=== PATIENT | female | born 1945 | race Hispanic/Latino ===

== ENCOUNTER 2017-08-31 20:25 | Emergency (ER) | payer OTHER ==
--- OUTSIDE RECORDS SUMMARY | 2017-08-31 20:27 | XMS REPORT | Clinical Summary ---
:1945 Author Organization [facility] Address [address] [place] [address] Care Team Providers Name Role Phone Asked, No Pcp Primary Care Provider Unavailable Allergies Active Allergy Reactions Severity Noted Date Comments Morphine 08/02/2016 Current Medications Not on file Active Problems Not on file Social History Tobacco Use Types Packs/Day Years Used Date Never Smoker Alcohol Use Drinks/Week oz/Week Comments No Sex Assigned at Date Recorded Not on file Last Filed Vital Signs Not on file Plan of Treatment Health Maintenance Due Date Last Done Comments BREAST CANCER SCREENING 12/31/1995 COLON CANCER SCREENING 12/31/1995 SHINGRIX VACCINE (#1) 12/31/1995 ZOSTER VACCINE 2005 PNEUMOCOCCAL POLYSACCHARIDE VACCINE AGE 65 AND OVER 2010 PNEUMOCOCCAL-13 2010 INFLUENZA VACCINE 10/29/2017 Results Not on fileafter 08/30/2016 Insurance Payer Benefit Plan / Group Subscriber ID Type Phone Address MEDICARE MEDICARE PART A AND B xxxxxxxxxx Medicare [place], [place] MEDICAID MEDICAID xxxxxxxxx Medicaid
[2017-08-31 21:22] LABS: Absolute Lymphocytes (CBC) 1.7 K/uL (0.7-4.9); Absolute Monocytes 0.4 K/uL (0.1-1.3); Absolute Neutrophil 2.9 K/uL (1.8-8.0); Basophils % 1.6 % (0-1.3); Eosinophils % 2.7 % (0-4.4); Hematocrit 29.4 % (36.0-45.0); Lymphocytes % 32.3 % (15.3-44.8); MCH 26.8 pg (27.0-35.0); MCV 80.1 fL (80-100); MPV 8.5 fL (7.6-11.3); Monocytes % 7.4 % (3.3-12.3); RBC Red Blood Cell Count 3.67 M/uL (3.86-4.86)
[2017-08-31 21:34] LABS: Potassium 3.2 mEq/L (3.6-5.0)
[2017-08-31 21:40] LABS: Albumin 3.9 g/dL (3.2-5.5); Bilirubin Direct 0.1 mg/dL (0-0.2); Bilirubin Total 0.2 mg/dL (0.3-1.2); Magnesium 1.5 mg/dL (1.8-2.5); Protein, Total 7.3 g/dL (6.0-8.3)
[2017-08-31] MEDS ORDERED: NA CHLORIDE 0.9% 250 ML ONE (21:42)
[2017-08-31] MEDS ORDERED: FENTANYL CITR 100 MCG/2 ML ONE (21:42)
[2017-08-31] MEDS ORDERED: ONDANSETRON 4 MG/2 ML VIAL ONE (21:42)
[2017-08-31] MEDS ORDERED: NA CHLORIDE 0.9% 1,000 ML ONE (22:03)
[2017-08-31] MEDS ORDERED: INSULIN -REGULAR HUMAN 50 UNIT/0.5 ML ML ONE (22:03)
[2017-08-31 23:34] LABS: Urine Bacteria <20 /HPF (<20); Urine Culture Reflex Order NOT NEEDED; Urine Mucus SLIGHT /HPF (NONE SEEN); Urine RBC NONE SEEN /HPF (NONE SEEN)
[2017-08-31 23:44] LABS: Urine Blood NEGATIVE (NEG); Urine Glucose 2+ (NEG); Urine Protein 1+ (NEG); Urine pH 5.5 (5.0-7.0)
[2017-09-01] MEDS ORDERED: MAGNESIUM SULFATE 1 gm IVPB 0 GM/0 ML BAG IV ONE (00:15)
[2017-09-01] MEDS ORDERED: KCL 20 MEQ/100 mL IVPB 20 MEQ/100 ML BAG IV ONE (00:15)
[2017-09-01] MEDS ORDERED: Magnesium Sulfate 2gm IVPB 2 G/50 ML BAG IV ONE (00:18)
--- NOTE | 2017-09-01 02:52 | ER ---
Nurse's Notes [facility] Name: Leydi Guerrier Age: 71 yrs Sex: Female : 1945 Arrival Date: 08/31/2017 Time: 20:26 Bed 14 Private MD: Natanael Mendoza Diagnosis: Unspecified abdominal pain;Other chest pain Presentation: 08/31 20:32 Presenting complaint: EMS states: "Patient c/o abdominal pain that radiates down both bs1 legs, patient colon colon surgery about 2 weeks ago in [place], patient started having c/o right sided chest pain just prior to arrival, blood pressure 161/88 99% RA.". Transition of care: patient was not received from another setting of care. Onset of symptoms is unknown. Risk Assessment: Do you want to hurt yourself or someone else? Patient reports no desire to harm self or others. Initial Sepsis Screen: Does the patient meet any 2 criteria? No. Patient's initial sepsis screen is negative. Does the patient have a suspected source of infection? No. Patient's initial sepsis screen is negative. Care prior to arrival: Glucose check: 317. 20:32 Method Of Arrival: EMS: [facility] bs1 20:32 Acuity: ADY 3 bs1 Historical: - Allergies: 20:38 Morphine; bs1 - Home Meds: 20:38 lisinopril 10 mg Oral tab 1 tab once daily [Active]; metformin 500 mg Oral tab 1 tab 2 bs1 times per day for Type 2 Diabetes Mellitus [Active]; oxybutynin chloride 10 mg Oral tr24 1 tab once daily [Active]; Plavix 75 mg Oral tab 1 tab once daily for Myocardial Reinfarction Prevention [Active]; pregabalin 75 MG Oral 1 cap 2 times per day [Active]; Protonix 40 mg Oral TbEC 1 tab once daily [Active]; simvastatin 20 mg Oral tab 1 tab once daily for Mixed Hyperlipidemia [Active]; - PMHx: 20:38 CAD; CVA; Diabetes - IDDM; High Cholesterol; Hypertension; legally blind; bs1 20:39 Glaucoma; bs1 - PSHx: 20:38 colon surgery; amputee of big toe; bs1 - Immunization history:: Adult Immunizations unknown. - Social history:: Smoking status: Patient/guardian denies using tobacco. - Ebola Screening: : Patient negative for fever greater than or equal to 101.5 degrees Fahrenheit, and additional compatible Ebola Virus Disease symptoms Patient denies exposure to infectious person. Screenin:41 Abuse screen: Denies threats or abuse. Denies injuries from another. Nutritional bs1 screening: No deficits noted. Tuberculosis screening: No symptoms or risk factors identified. Fall Risk No fall in past 12 months (0 pts). No secondary diagnosis (0 pts). IV access (20 points). Ambulatory Aid- None/Bed Rest/Nurse Assist (0 pts). Gait- Weak (10 pts.). Mental Status- Oriented to own ability (0 pts). Total Esparza Fall Scale indicates Low Risk Score (25-44 pts). Assessment: 20:43 General: Appears uncomfortable, unkempt, Behavior is anxious. Pain: Complains of pain bs1 in abdominal pain, right side of chest Pain radiates to bilateral legs. Neuro: Level of Consciousness is awake, alert, obeys commands, Oriented to person, place, time. Cardiovascular: Reports chest pain, Denies shortness of breath, Heart tones S1 S2 present Capillary refill < 3 seconds Patient's skin is warm and dry. Respiratory: Airway is patent Trachea midline Respiratory effort is even, unlabored, Respiratory pattern is regular, symmetrical, Breath sounds are clear bilaterally. GI: Abdomen is round non-distended, Last BM was August 31, 2017. Bowel sounds present X 4 quads. surgical scar noted to abdomen Reports lower abdominal pain, upper abdominal pain. : No signs and/or symptoms were reported regarding the genitourinary system. EENT: Reports legally blind. Derm: Skin is intact, Skin is pink, warm \\T\\ dry. Musculoskeletal: Circulation, motion, and sensation intact. Capillary refill < 3 seconds, Range of motion: intact in all extremities. 21:40 Reassessment: Informed PA that patient has c/o pain in right side of chest, hips, right bs1 palm of hand that is a sharp pain. Patient crying out. PA to put orders in. 23:23 Reassessment: Patient c/o pain "all over." Verbal order from PA to give 25mcg of bs1 fentanyl. Son at bedside, leaving with patients purse and belongings, per patient request. 09/01 01:10 Reassessment: Patient had 1 episode of diarrhea. When cleaning patient up, nurse bs1 noticed that patient has a stage 2 to rectal area. 01:30 Reassessment: No changes from previously documented assessment. Patient and/or family bs1 updated on plan of care and expected duration. Pain level reassessed. Patient is alert, oriented x 3, equal unlabored respirations, skin warm/dry/pink. Patient still c/o pain. Pending results of CT scan. 02:30 Reassessment: Patient appears in no apparent distress at this time. Patient and/or bs1 family updated on plan of care and expected duration. Pain level reassessed. Patient is alert, oriented x 3, equal unlabored respirations, skin warm/dry/pink. Gave patient water for PO challenge. tolerated well. No N/N noted. 03:30 Reassessment: Patient appears in no apparent distress at this time. Patient and/or bs1 family updated on plan of care and expected duration. Pain level reassessed. Patient is alert, oriented x 3, equal unlabored respirations, skin warm/dry/pink. 03:50 Reassessment: Nan mcmillan Tolerated well. bs1 Vital Signs: 08/31 20:40 BP 157 / 49 LA Sitting (auto/lg); Pulse 80 LA; Resp 17; Temp 98.2(O); Pulse Ox 99% on bs1 R/A; Weight 69.85 kg; Height 5 ft. 2 in. (157.48 cm); Pain 10/10; 21:30 BP 178 / 69; Pulse 76; Pulse Ox 100% on R/A; bs1 22:30 BP 162 / 78; Pulse 80; Resp 17; Pulse Ox 100% on R/A; bs1 23:30 BP 163 / 80; Pulse 75; Pulse Ox 100% on R/A; bs1 06/ 00:30 BP 166 / 81; Pulse 76; Resp 17; Pulse Ox 99% on R/A; bs1 01:30 BP 154 / 66; Pulse 86; Resp 16; Pulse Ox 100% on R/A; bs1 02:30 BP 161 / 52; Pulse 75; Resp 16; Pulse Ox 99% on R/A; bs1 03:30 BP 148 / 85; Pulse 84; Resp 16 S; Pulse Ox 100% ; Pain 7/10; bs1 08/31 20:40 Body Mass Index 28.17 (69.85 kg, 157.48 cm) bs1 ED Course: 08/31 20:26 Patient arrived in ED. am2 20:31 Gopi Coppola PA is PHCP. cp 20:31 Duran Pires MD is Attending Physician. cp 20:32 Galilea Todd RN is Primary Nurse. bs1 20:35 Natanael Mendoza MD is Private Physician. am2 20:36 Triage completed. bs1 20:41 Patient has correct armband on for positive identification. Placed in gown. Bed in low bs1 position. Call light in reach. Side rails up X 1. compliance monitor on. Pulse ox on. NIBP on. Warm blanket given. 20:42 Arm band placed on right wrist. EKG completed in triage. Results shown to MD. bs1 20:45 EKG done, by research food technologist. reviewed by Duran Pires MD. oe 21:15 Inserted saline lock: 20 gauge in right antecubital area, using aseptic technique. bs1 Blood collected. Inserted By AIDEN Hubbard. 22:02 X-ray completed. Portable x-ray completed in exam room. Patient tolerated procedure mh1 well. 22:04 XRAY Chest (1 view) In Process Unspecified. EDMS 22:59 [place] cath inserted, using sterile technique, 16 Fr., by travel counselor [employer], balloon inflated, to oe gravity drainage, urine specimen collected. Patient tolerated. 23:[address] via stretcher. kw1 09/01 00:21 CT completed. Patient tolerated procedure well. Patient moved back from CT. kw1 00:27 CT Abd/Pelvis - W/Contrast In Process Unspecified. EDMS 02:00 Inserted IV discontinued, IV infiltrated. bs1 02:00 Inserted saline lock: 22 gauge in left antecubital area, using aseptic technique. bs1 03:35 No provider procedures requiring assistance completed. bs1 Administered Medications: 08/31 21:45 Drug: Zofran 4 mg Route: IVP; Site: right forearm; bs1 09/01 03:43 Follow up: Response: No adverse reaction bs1 08/31 21:45 Drug: fentaNYL (PF) 25 mcg Route: IVP; Site: right forearm; bs1 09/01 03:44 Follow up: Response: No adverse reaction bs1 08/31 21:56 Drug: NS 0.9% 250 ml Route: IV; Rate: bolus; Site: right forearm; bs1 09/01 03:42 Follow up: IV Status: Completed infusion bs1 08/31 22:06 Drug: Insulin Regular Human 5 units {Co-Signature: bp (Adan Jalloh RN).} Route: IVP; bs1 Site: right forearm; 09/01 03:43 Follow up: Response: No adverse reaction bs1 08/31 22:07 Drug: NS 0.9% 1000 ml Route: IV; Rate: 75 ml/hr; Site: right forearm; bs1 09/01 03:42 Follow up: IV Status: Completed infusion bs1 04:13 Follow up: IV Intake: 300ml bs1 08/31 23:28 Drug: fentaNYL (PF) 25 mcg Route: IVP; Site: right forearm; bs1 09/01 03:42 Follow up: Response: No adverse reaction bs1 01:26 Drug: Magnesium Sulfate 2 grams Route: IVPB; Infused Over: 2 hrs; Site: left bs1 antecubital; 03:41 Follow up: IV Status: Completed infusion bs1 03:43 Follow up: IV Status: Completed infusion bs1 01:26 Drug: Potassium Chloride 20 mEq Route: IV; Rate: calculated rate; Site: left bs1 antecubital; 04:13 Follow up: IV Status: Completed infusion bs1 Point of Care Testing: Blood Glucose: 02:09 Blood Glucose: 151 mg/dL; bs1 Ranges: Intake: 04:13 IV: 300ml; Total: 300ml. bs1 Outcome: 02:52 Discharge ordered by MD. cp 04:04 Discharged to home via wheelchair. bs1 04:04 Condition: stable 04:04 Discharge instructions given to son Instructed on discharge instructions, follow up and referral plans. medication usage, Demonstrated understanding of instructions, follow-up care, medications, Prescriptions given X 2. 04:05 Patient left the ED. bs1 Signatures: Dispatcher [employer] EDMS Paola Perez 1 Gopi Coppola PA PA Carlito Sanches Amanda am2 Nury Corona1 Galilea Todd RN RN bs1 Adan Jalloh RN bp Corrections: (The following items were deleted from the chart) 03:40 02:30 Reassessment: Patient appears in no apparent distress at this time. Patient bs1 and/or family updated on plan of care and expected duration. Pain level reassessed. Patient is alert, oriented x 3, equal unlabored respirations, skin warm/dry/pink. bs1
--- NOTE | 2017-09-01 02:52 | EDPHYS ---
Physician Documentation [facility] Name: Leydi Guerrier Age: 71 yrs Sex: Female : 1945 Arrival Date: 08/31/2017 Time: 20:26 Bed 14 Private MD: Natanael Mendoza ED Physician Duran Pires HPI: 08/31 21:08 This 71 yrs old Female presents to ER via EMS with complaints of Abdominal cp Pain. 21:08 The patient presents with abdominal pain that is diffuse. Onset: The symptoms/episode cp began/occurred at an unknown time. Associated signs and symptoms: Pertinent positives: diarrhea. 21:08 Severity of pain: in the emergency department the pain is unchanged despite home cp interventions. 21:08 The patient has experienced similar episodes in the past, multiple times. cp Historical: - Allergies: 20:38 Morphine; bs1 - Home Meds: 20:38 lisinopril 10 mg Oral tab 1 tab once daily [Active]; metformin 500 mg Oral tab 1 tab 2 bs1 times per day for Type 2 Diabetes Mellitus [Active]; oxybutynin chloride 10 mg Oral tr24 1 tab once daily [Active]; Plavix 75 mg Oral tab 1 tab once daily for Myocardial Reinfarction Prevention [Active]; pregabalin 75 MG Oral 1 cap 2 times per day [Active]; Protonix 40 mg Oral TbEC 1 tab once daily [Active]; simvastatin 20 mg Oral tab 1 tab once daily for Mixed Hyperlipidemia [Active]; - PMHx: 20:38 CAD; CVA; Diabetes - IDDM; High Cholesterol; Hypertension; legally blind; bs1 20:39 Glaucoma; bs1 - PSHx: 20:38 colon surgery; amputee of big toe; bs1 - Immunization history:: Adult Immunizations unknown. - Social history:: Smoking status: Patient/guardian denies using tobacco. - Ebola Screening: : Patient negative for fever greater than or equal to 101.5 degrees Fahrenheit, and additional compatible Ebola Virus Disease symptoms Patient denies exposure to infectious person. ROS: 21:13 Constitutional: Negative for fever. cp 21:13 Eyes: Negative for injury, pain, redness, and discharge. cp 21:13 ENT: Negative for drainage from ear(s), ear pain, sore throat, difficulty swallowing, cp difficulty handling secretions. 21:13 Neck: Negative for pain with movement, pain at rest, stiffness, tenderness. 21:13 Cardiovascular: Positive for chest pain, Negative for edema. 21:13 Respiratory: Negative for cough, shortness of breath, wheezing. 21:13 Abdomen/GI: Positive for abdominal pain, nausea, vomiting, diarrhea, Negative for constipation, abdominal distension, anorexia, black/tarry stool, rectal bleeding. 21:13 Back: Negative for radiated pain. 21:13 : Negative for urinary symptoms, flank pain. 21:13 Skin: Negative for cellulitis, rash. 21:13 Neuro: Negative for altered mental status, speech changes, weakness. 21:13 All other systems are negative. Exam: 20:35 ECG was reviewed by the Attending Physician. cp 21:18 Constitutional: The patient appears in no acute distress, alert, awake, cp non-diaphoretic, non-toxic, well developed, well nourished. 21:18 Head/Face: Normocephalic, atraumatic. cp 21:18 Eyes: Periorbital structures: appear normal, Pupils: equal, round, and reactive to cp light and accomodation, Conjunctiva: normal, no exudate, no injection, Sclera: no appreciated abnormality, Lids and lashes: appear normal, bilaterally. 21:18 ENT: External ear(s): are unremarkable, Ear canal(s): are normal, clear, TM's: cp dullness, bilaterally, Nose: is normal, Mouth: Lips: moist, Oral mucosa: pink and intact, moist, Posterior pharynx: is normal, airway is patent, no erythema, no exudate. 21:18 Neck: ROM/movement: is normal, is supple, no range of motions limitations, no meningismus, no nuchal rigidity. 21:18 Chest/axilla: Inspection: normal, Palpation: is normal, no crepitus, no tenderness. 21:18 Cardiovascular: Rate: normal, Rhythm: regular, Edema: is not appreciated, JVD: is not appreciated. 21:18 Respiratory: the patient does not display signs of respiratory distress, Respirations: normal, no use of accessory muscles, no retractions, no splinting, no tachypnea, labored breathing, is not present, Breath sounds: are clear throughout, no decreased breath sounds, no stridor, no wheezing. 21:18 Abdomen/GI: Inspection: abdomen appears normal, Bowel sounds: active, all quadrants, Palpation: soft, in all quadrants, moderate abdominal tenderness, in the left upper quadrant and left lower quadrant, rebound tenderness, is not appreciated, involuntary guarding, is not appreciated. 21:18 Skin: cellulitis, is not appreciated, no rash present. 21:18 Neuro: Orientation: no acute changes, Mentation: no acute changes. 09/01 02:20 : Rectal exam: Stool: soft, light brown, Guaiac testing: results were negative for cp occult blood, the nurse was present for the exam. 02:25 ECG was reviewed by the Attending Physician. cp Vital Signs: 08/31 20:40 BP 157 / 49 LA Sitting (auto/lg); Pulse 80 LA; Resp 17; Temp 98.2(O); Pulse Ox 99% on bs1 R/A; Weight 69.85 kg; Height 5 ft. 2 in. (157.48 cm); Pain 10/10; 21:30 BP 178 / 69; Pulse 76; Pulse Ox 100% on R/A; bs1 22:30 BP 162 / 78; Pulse 80; Resp 17; Pulse Ox 100% on R/A; bs1 23:30 BP 163 / 80; Pulse 75; Pulse Ox 100% on R/A; bs1 09/01 00:30 BP 166 / 81; Pulse 76; Resp 17; Pulse Ox 99% on R/A; bs1 01:30 BP 154 / 66; Pulse 86; Resp 16; Pulse Ox 100% on R/A; bs1 02:30 BP 161 / 52; Pulse 75; Resp 16; Pulse Ox 99% on R/A; bs1 03:30 BP 148 / 85; Pulse 84; Resp 16 S; Pulse Ox 100% ; Pain 7/10; bs1 08/31 20:40 Body Mass Index 28.17 (69.85 kg, 157.48 cm) bs1 MDM: 08/31 20:51 Patient medically screened. cp 22:00 Differential diagnosis: bowel obstruction, coronary artery disease, diverticulitis, cp gastritis, GI Bleed, Mesenteric ischemia or infarction, non-specific abd pain, pancreatitis, Peptic Ulcer Disease, Perf. Duodenal Ulcer, Peritonitis, Pyelonephritis, Ureterolithiasis, urinary tract infection, acute OR, angina, cardiac arrythmia. 09/01 02:51 Data reviewed: vital signs, nurses notes, lab test result(s), EKG, radiologic studies, cp CT scan, plain films, and as a result, I will discharge patient. 02:51 Special discussion: Based on the patient's Hx, exam, and Dx evaluation, there is no cp indication for emergent surgery or inpatient Tx. It is understood by the patient/guardian that if the Sx's persist or worsen they need to return immediately for re-evaluation. 02:52 Counseling: I had a detailed discussion with the patient and/or guardian regarding: the cp historical points, exam findings, and any diagnostic results supporting the discharge/admit diagnosis, lab results, radiology results, to return to the emergency department if symptoms worsen or persist or if there are any questions or concerns that arise at home. 02:52 Response to treatment: improved. cp 08/31 21:06 Order name: Amylase, Serum; Complete Time: 23:53 cp 08/31 21:06 Order name: Basic Metabolic Panel; Complete Time: 23:53 cp 08/31 23:54 Interpretation: Normal except: K 3.2; GLUC 314; GFR 84. cp 08/31 21:06 Order name: CBC with Diff; Complete Time: 21:39 cp 09/01 01:55 Interpretation: Normal except: RBC 3.67; HGB 9.8; HCT 29.4; MCV 80.1; MCH 26.8; RDW cp 18.1; BASO% 1.6. 08/31 21:06 Order name: Creatinine for Radiology; Complete Time: 21:39 cp 08/31 21:06 Order name: Hepatic Function; Complete Time: 23:53 cp 08/31 23:54 Interpretation: Normal except: BILIT 0.2. cp 08/31 21:06 Order name: Lipase; Complete Time: 23:53 cp 08/31 21:06 Order name: Urine Microscopic Only; Complete Time: 23:53 cp 08/31 23:54 Interpretation: Reviewed. cp 08/31 21:08 Order name: Magnesium cp 08/31 21:08 Order name: Troponin (emerg Dept Use Only) cp 08/31 21:08 Order name: Magnesium; Complete Time: 23:53 EDMS 08/31 23:54 Interpretation: Abnormal: MG 1.5. cp 08/31 21:08 Order name: Troponin (Emerg Dept Use Only); Complete Time: 23:53 EDMS 08/31 23:54 Interpretation: Within normal limits: TROPED < 0.03. cp 08/31 23:01 Order name: Urine Dipstick--Ancillary (enter results) ms 08/31 23:01 Order name: Urine Dipstick-Ancillary; Complete Time: 23:53 EDMS 09/01 01:55 Interpretation: Normal except: UGLUC 2+; UPROT 1+. cp / 01:53 Order name: Troponin I; Complete Time: 02:50 cp / 02:50 Interpretation: TROP < 0.03; Reviewed. cp 08/31 21:06 Order name: IV Saline Lock; Complete Time: 21:16 cp 08/31 21:06 Order name: Labs collected and sent; Complete Time: 21:16 cp 08/31 21:06 Order name: Urine Dipstick-Ancillary (obtain specimen); Complete Time: 22:41 cp 08/31 21:08 Order name: EKG; Complete Time: 21:08 cp 08/31 21:08 Order name: XRAY Chest (1 view) cp 08/31 21:10 Order name: CT Abd/Pelvis - W/Contrast cp 09/01 01:53 Order name: EKG; Complete Time: 01:53 cp 09/01 02:05 Order name: Lactate; Complete Time: 02:50 cp 09/01 02:51 Interpretation: LAC 9.2; Reviewed. cp 08/31 21:08 Order name: EKG - Nurse/Tech; Complete Time: 21:16 cp 08/31 21:08 Order name: Cath; Complete Time: 22:41 cp 09/01 01:53 Order name: EKG - Nurse/Tech; Complete Time: 02:25 cp 09/01 02:05 Order name: Accucheck; Complete Time: 02:19 cp 09/01 03:39 Order name: PO challenge; Complete Time: 03:39 bs1 EC/03 20:35 Rate is 76 beats/min. Rhythm is regular. QRS interval is normal. QT interval is normal. cp No ST changes noted. Interpreted by me. Reviewed by me. 09/01 02:25 Rate is 74 beats/min. Rhythm is regular. VA interval is normal at 132 msec. QRS cp interval is normal. QT interval is normal. No ST changes noted. Interpreted by me. Reviewed by me. Administered Medications: 08/31 21:45 Drug: Zofran 4 mg Route: IVP; Site: right forearm; bs1 09/01 03:43 Follow up: Response: No adverse reaction bs1 08/31 21:45 Drug: fentaNYL (PF) 25 mcg Route: IVP; Site: right forearm; bs1 09/01 03:44 Follow up: Response: No adverse reaction bs1 08/31 21:56 Drug: NS 0.9% 250 ml Route: IV; Rate: bolus; Site: right forearm; bs1 09/01 03:42 Follow up: IV Status: Completed infusion bs1 08/31 22:06 Drug: Insulin Regular Human 5 units {Co-Signature: bp (Adan Jalloh RN).} Route: IVP; [facility] Site: right forearm; 09/01 03:43 Follow up: Response: No adverse reaction 1 08/31 22:07 Drug: NS 0.9% 1000 ml Route: IV; Rate: 75 ml/hr; Site: right forearm; 1 09/01 03:42 Follow up: IV Status: Completed infusion bs1 04:13 Follow up: IV Intake: 300ml bs1 08/31 23:28 Drug: fentaNYL (PF) 25 mcg Route: IVP; Site: right forearm; bs1 09/01 03:42 Follow up: Response: No adverse reaction bs1 01:26 Drug: Magnesium Sulfate 2 grams Route: IVPB; Infused Over: 2 hrs; Site: left [facility] antecubital; 03:41 Follow up: IV Status: Completed infusion bs1 03:43 Follow up: IV Status: Completed infusion bs1 01:26 Drug: Potassium Chloride 20 mEq Route: IV; Rate: calculated rate; Site: left 1 antecubital; 04:13 Follow up: IV Status: Completed infusion bs1 Point of Care Testing: Blood Glucose: 02:09 Blood Glucose: 151 mg/dL; bs1 Ranges: Critical Glucose Levels:Adult <50 mg/dl or >400 mg/dl <40 mg/dl or >180 mg/dl Disposition: 05:34 Co-signature as Attending Physician, Duran Pires MD I agree with the assessment and 4 plan of care. Disposition: 09/01/17 02:52 Discharged to Home. Impression: Unspecified abdominal pain, Other chest pain. - Condition is Stable. - Discharge Instructions: Abdominal Pain, Adult, Nonspecific Chest Pain. - Prescriptions for Zofran 4 mg Oral Tablet - take 1 tablet by ORAL route every 12 hours As needed; 20 tablet. Bentyl 20 mg Oral Tablet - take 2 tablet by ORAL route every 6 hours As needed; 40 tablet. - Medication Reconciliation Form, Thank You Letter, Antibiotic Education, Prescription Opioid Use form. - Follow up: Private Physician; When: 1 - 2 days; Reason: Recheck today's complaints. - Problem is new. - Symptoms have improved. Signatures: Dispatcher [employer] EDMS Gopi Coppola PA PA cp Salazar, Brittany RN RN bs1 Duran Pires MD MD tw4 Adan Jalloh RN bp Corrections: (The following items were deleted from the chart) 04:05 02:52 09/01/2017 02:52 Discharged to Home. Impression: Unspecified abdominal pain; bs1 Other chest pain. Condition is Stable. Forms are Medication Reconciliation Form, Thank You Letter, Antibiotic Education, Prescription Opioid Use. Follow up: Private Physician; When: 1 - 2 days; Reason: Recheck today's complaints. Problem is new. Symptoms have improved. cp
[2017-09-01 04:12] VITALS: TEMP 98.2
[2017-09-01 04:19] VITALS: BP 148/85; O2SAT 100
--- NOTE | 2017-09-01 07:36 | EKG ---
Test Date: 2017-09-01 Test Time: 02:20:00 Training Consultant: LACY MEASUREMENT RESULTS: Intervals: Rate: 74 SC: 132 QRSD: 100 QT: 398 QTc: 441 [place]: P: 22 SC: 132 QRS: -50 T: 59 INTERPRETIVE STATEMENTS: Normal sinus rhythm Left anterior fascicular block Abnormal ECG Compared to ECG 08/31/2017 20:33:47 Left anterior fascicular block now present Accelerated junctional rhythm no longer present Left-axis deviation no longer present Electronically Signed On 09-01-17 07:35:40 CDT by Rolf Moulton
--- NOTE | 2017-09-01 07:37 | EKG ---
Test Date: 2017-08-31 Test Time: 20:33:47 Chemical Inspector: LACY MEASUREMENT RESULTS: Intervals: Rate: 76 [place]: QRSD: 96 QT: 372 QTc: 418 [place]: P: [place]: QRS: -42 T: 43 INTERPRETIVE STATEMENTS: Sinus rhythm Left axis deviation Abnormal ECG Compared to ECG 04/19/2017 09:47:51 no significant change from previous ECG Electronically Signed On 09-01-17 07:36:22 CDT by Rolf Moulton
--- NOTE | 2017-09-01 07:39 | RAD REPORT ---
EXAM DESCRIPTION: RAD - Chest Single View - 08/31/2017 10:04 pm CLINICAL HISTORY: Right-sided chest pain COMPARISON: March 2017 TECHNIQUE: AP portable chest image was obtained 2158 hours . FINDINGS: No focal mass or consolidation. Interstitial markings are prominent, accentuated by shallo w inspiration, and not clearly different from comparison. Trachea is midline. Heart and vasculature a re normal. No measurable pleural effusion and no pneumothorax. No gross bony abnormality seen. No acu te aortic findings suspected. IMPRESSION: No acute cardiopulmonary process. No significant change from March study.
--- NOTE | 2017-09-01 07:51 | RAD REPORT ---
EXAM DESCRIPTION: CT - Abdomen Pelvis W Contrast - 09/01/2017 4:03 am CLINICAL HISTORY: Abdomen pain radiating into the lower extremities. Patient reports colon surgery 2 weeks ago without details of the surgery performed. A preliminary written report was provided at the time of the study, and the report was reviewed prio r to final dictation. COMPARISON: CT March 2017 TECHNIQUE: Biphasic, helical CT imaging of the abdomen and pelvis was performed following 100 ml non -ionic IV contrast. Oral contrast was given. All CT scans are performed using dose optimization technique as appropriate and may include automated exposure control or mA/KV adjustment according to patient size. FINDINGS: No focal infiltrate, mass or pleural fluid. Interstitial markings are prominent. No perica rdial effusion. The liver, spleen, and pancreas show no suspicious findings. Cholecystectomy clips are present. No bi liary tree dilatation. Symmetric renal function is seen with no hydronephrosis or suspicious renal mass. No pyelonephritis o r acute renal parenchymal process. Urinary bladder is fully contracted around a [place] catheter. Uteru s is absent. Ovaries are absent or atrophic. Stomach is filled with food and contrast. No gastric dilatation or wall thickening. No gastric outlet obstruction. Most of the oral contrast is in the colon. No dilated small bowel loop. Postsurgical ch anges are present near the tip of the cecum. The recent surgery may have been a simple appendectomy. No significant removal of colon is identified when compared with March. Sigmoid colon is redundant. Saba of the terminal ileum are mildly prominent. There is significant motion degradation through th is region. No free air, pneumatosis or free fluid. No abscess or other surgical complication seen. No hernia, mass or bulky lymphadenopathy. No adrenal abnormality. No suspicious bony findings. IMPRESSION: No abscess, free air or other finding to suspect complication from recent surgery. Saba of the terminal ileum are prominent. This could be a nonspecific ileitis. Remnant edema from th e recent surgery is possible as well. An acute, significant bowel process is not identified. Cholecystectomy clips are present. No pancreatic or biliary tree acute finding. No acute process.
== END 2017-09-01 04:05 | disposition home or self-care (01) ==
LOC: ER 20:25
DX: R07.89 Other chest pain (principal); I10 Essential (primary) hypertension; E11.9 Type 2 diabetes mellitus without complications; E78.00 Pure hypercholesterolemia, unspecified; Z79.01 Long term (current) use of anticoagulants; Z88.5 Allergy status to narcotic agent
CPT/HCPCS: 36415; 71045; 74177; 80048; 80076; 82150; 82962; 83605; 83690; 83735; 84484 ×2; 85025; 93005 ×2; J2405; J3010; J3475; J7030; Q9967; 51702; 81003; 81015; 99285

== ENCOUNTER 2018-06-24 08:13 | Inpatient (IN) | payer OTHER ==
--- OUTSIDE RECORDS SUMMARY | 2018-06-24 08:16 | XMS REPORT | Clinical Summary ---
:1945 Author Organization [facility] Address [address] [place] [address] Care Team Providers Name Role Phone Asked, No Pcp Primary Care Provider Unavailable Allergies Active Allergy Reactions Severity Noted Date Comments Morphine 08/02/2016 Medications Not on file Active Problems Not on file Social History Tobacco Use Types Packs/Day Years Used Date Never Smoker Alcohol Use Drinks/Week oz/Week Comments No Sex Assigned at Date Recorded Not on file Job Start Date Occupation Industry Not on file Not on file Not on file Travel History Travel Start Travel End No recent travel history available. Last Filed Vital Signs Not on file Plan of Treatment Health Maintenance Due Date Last Done Comments BREAST CANCER SCREENING 12/31/1995 COLON CANCER SCREENING 12/31/1995 SHINGLES VACCINES (#1) 12/31/1995 65+ PNEUMOCOCCAL VACCINE (1 of 2 - PCV13) 2010 PNEUMOCOCCAL POLYSACCHARIDE VACCINE AGE 65 AND OVER 2010 INFLUENZA VACCINE 10/29/2017 Results Not on fileafter 06/23/2017 Insurance Payer Benefit Plan / Group Subscriber ID Type Phone Address MEDICARE MEDICARE PART A AND B xxxxxxxxxx Medicare [place], [place] MEDICAID MEDICAID xxxxxxxxx Medicaid Advance Directives Patient has advance care planning documents on file. For more information, please contact:[facility] [place] [address]
--- OUTSIDE RECORDS SUMMARY | 2018-06-24 08:16 | XMS REPORT ---
:1945 [facility] Address [address] [place] [address] Dr. Kirby [address] [place] [id number] Care Team Providers Name Role Phone Unavailable Unavailable Unavailable Problems This patient has no known problems. Allergies, Adverse Reactions, Alerts This patient has no known allergies or adverse reactions. Medications This patient has no known medications.
--- NOTE | 2018-06-24 09:07 | RAD REPORT ---
EXAM DESCRIPTION: CT - Head Brain Wo Cont - 06/24/2018 8:59 am CLINICAL HISTORY: Headache, vomiting COMPARISON: CT head March 2017 TECHNIQUE: Axial 5 mm thick images of the head were obtained without IV contrast. All CT scans are performed using dose optimization technique as appropriate and may include automated exposure control or mA/KV adjustment according to patient size. FINDINGS: No intracranial hemorrhage, mass, edema or shift of mid-line structures. No acute infarcti on changes seen. Moderate severity atrophy and chronic ischemic changes are present. Ventricles are i n proportion to the amount of volume loss. Arterial and physiologic calcifications are present. Postsurgical changes noted to the right mastoid air cells with no acute component. Chronic left masto id opacification is present. Partially imaged paranasal sinuses are clear. No acute bony findings. IMPRESSION: Moderate severity atrophy and chronic ischemic change similar to comparison. Ventricles are in proportion. No acute intracranial finding.
[2018-06-24] MEDS ORDERED: ONDANSETRON 4 MG/2 ML VIAL ONE (09:22)
[2018-06-24] MEDS ORDERED: FAMOTIDINE 20 MG/2 ML VIAL IV ONE (09:22)
[2018-06-24] MEDS ORDERED: FENTANYL CITR 100 MCG/2 ML ONE (09:22)
[2018-06-24] MEDS ORDERED: NA CHLORIDE 0.9% 1,000 ML ONE (09:22)
[2018-06-24 09:24] LABS: Absolute Lymphocytes (CBC) 1.2 K/uL (0.7-4.9); Absolute Monocytes 0.4 K/uL (0.1-1.3); Absolute Neutrophil 7.5 K/uL (1.8-8.0); Basophils % 0.6 % (0-1.3); Eosinophils % 0.4 % (0-4.4); Hematocrit 35.4 % (36.0-45.0); Lymphocytes % 13.1 % (15.3-44.8); MPV 9.3 fL (7.6-11.3); Monocytes % 4.4 % (3.3-12.3); RBC Red Blood Cell Count 4.35 M/uL (3.86-4.86)
--- NOTE | 2018-06-24 09:26 | RAD REPORT ---
EXAM DESCRIPTION: CT - Abdomen Pelvis Wo Contrast - 06/24/2018 8:59 am CLINICAL HISTORY: Abdominal pain, vomiting COMPARISON: CT imaging August 2013 TECHNIQUE: Axial [address] imaging of the abdomen and pelvis was performed without IV contrast. No IV contrast was given because of allergy, abnormal renal function, patient refusal or physician re quest. Oral contrast was given. All CT scans are performed using dose optimization technique as appropriate and may include automated exposure control or mA/KV adjustment according to patient size. FINDINGS: No suspicious findings in the lung bases. No pericardial thickening or effusion. Liver size is normal. No focal lesion of the liver parenchyma seen on a noncontrast study. Patient lisa s extensive serpiginous linear branching air densities that extend to the liver capsule. This is a po rtal venous air pattern. Two moderate-sized air-filled veins are seen along the anterior and right la teral margin of stomach. Gastric wall thickening is identified. No focal gastric mass. No air confirm ed within the wall of the stomach. Air densities near the cardia/fundus are probably within the lumen rather than in the wall. Patient has dense arterial tree calcifications. Spleen and pancreas show no acute findings. Cholecystectomy clips are present. No biliary tree dilata tion. No hydronephrosis or suspicious renal mass. Dense renal arterial calcifications are present No signif icant adrenal finding. Isodense renal masses and pyelonephritis cannot be excluded in the absence of IV contrast. The urinary bladder is without significant finding. Uterus is absent. Ovaries are absent or atrophic. No large or small bowel dilatation. No mass, wall thickening or acute process of the large or small b owel. Right-sided bowel anastomotic site shows no suspicious finding. No large or small bowel pneumat osis intestinalis. No abnormal free fluid. No free air is seen. No hernia, mass or bulky lymphadenopa thy. Prominent disc and bony degenerative changes are present. No pathologic bone process. Findings telephoned to the referring physician 9:20 a.m. IMPRESSION: Hepatic portal venous gas is present with air in at least 2 veins adjacent to the stomac h. There is gastric wall thickening. Gastric wall pneumatosis is not confirmed. Air near the fundus and cardia is more difficult to distin guish as gastric wall or air trapped between gastric folds. Gastric ischemia or gastric ulcer would be the primary considerations for the gastric and hepatic por cl venous gas pattern. Large and small bowel show no acute findings. No free air or free fluid. Full assessment is limited is the absence of IV contrast.
[2018-06-24 09:32] LABS: Protime INR 0.92
[2018-06-24 09:45] LABS: BUN Blood Urea Nitrogen 16 mg/dL (7-18); Bicarbonate 28 mmol/L (21-32); Glucose Level 300 mg/dL (74-106); Potassium 4.4 mmol/L (3.5-5.1); Sodium Level 142 mmol/L (136-145)
[2018-06-24 09:46] LABS: ALT/SGPT 14 U/L (12-78); AST/SGOT 12 U/L (15-37); Albumin 3.4 g/dL (3.4-5.0); Alkaline Phosphatase 93 U/L (45-117); Bilirubin Direct 0.2 mg/dL (0-0.2); Bilirubin Total 0.5 mg/dL (0.2-1.0); Lipase 117 U/L (73-393); Magnesium 1.8 mg/dL (1.8-2.4); NT PRO-BNP 147 pg/mL (<125); Protein, Total 7.2 g/dL (6.4-8.2); Troponin (Emerg Dept Use Only) < 0.02 ng/mL (0.0-0.045)
[2018-06-24] MEDS ORDERED: PIPER/TAZO/NS 3.375gm 3.375 GM/100 ML BAG ONE (09:58)
[2018-06-24] MEDS ORDERED: VANCOMYCIN/NS 1 gm 1 GM/250 ML BAG IV ONE (10:00)
--- NOTE | 2018-06-24 10:30 | RAD REPORT ---
EXAM DESCRIPTION: Jamal Single View06/24/2018 10:03 am CLINICAL HISTORY: Abdominal pain COMPARISON: August 2017 FINDINGS: A 12 millimeter opacity overlies the mid left lung. Remainder lungs appear clear. The heart is normal size IMPRESSION: 12 millimeter opacity overlying the mid left lung may represent a pulmonary nodule or confluence of r ibs and vessels. Frontal and oblique views of the chest are recommended for further evaluation
[2018-06-24] MEDS ORDERED: PANTOPRAZOLE 40 MG INJ ONE (10:39)
[2018-06-24] MEDS ORDERED: PANTOPRAZOLE INJ 80 MG in NA CHLORIDE 0.9% 250 ML IV ONE (10:45)
--- NOTE | 2018-06-24 10:50 | EDPHYS ---
Physician Documentation [facility] Name: Leydi Guerrier Age: 72 yrs Sex: Female : 1945 Arrival Date: 06/24/2018 Time: 08:15 Bed 16 Private MD: ED Physician Preston Andrew HPI: 06/24 08:49 This 72 yrs old Female presents to ER via EMS with complaints of Headache, wa Abdominal Pain. 08:49 The patient complains of pain to the generalized. states awoke with a severe LYN. vomit wa x 5. also c/o epigastric area pain. The patient describes the headache as aching, constant, awoke with it. . Onset: The symptoms/episode began/occurred this morning. Associated signs and symptoms: Pertinent positives: vomiting, Pertinent negatives: altered mental status, nausea, neck stiffness. Severity of symptoms: At its worst the pain was severe, in the emergency department the pain is unchanged. Headache History: Denies prior headaches. The symptoms are alleviated by nothing. the symptoms are aggravated by nothing. The patient has not experienced similar symptoms in the past. The patient has not recently seen a physician. pt of DM. pt is blind. Historical: - Allergies: 08:19 Morphine; bp - Home Meds: 08:19 lisinopril 10 mg Oral tab 1 tab once daily [Active]; metformin 500 mg Oral tab 1 tab 2 bp times per day for Type 2 Diabetes Mellitus [Active]; oxybutynin chloride 10 mg Oral tr24 1 tab once daily [Active]; Plavix 75 mg Oral tab 1 tab once daily for Myocardial Reinfarction Prevention [Active]; pregabalin 75 MG Oral 1 cap 2 times per day [Active]; Protonix 40 mg Oral TbEC 1 tab once daily [Active]; simvastatin 20 mg Oral tab 1 tab once daily for Mixed Hyperlipidemia [Active]; - PMHx: 08:19 CAD; CVA; Diabetes - IDDM; Glaucoma; High Cholesterol; Hypertension; legally blind; bp - Immunization history:: Adult Immunizations up to date. - Social history:: Smoking status: Patient/guardian denies using tobacco. - Ebola Screening: : Patient negative for fever greater than or equal to 101.5 degrees Fahrenheit, and additional compatible Ebola Virus Disease symptoms Patient denies exposure to infectious person Patient denies travel to an Ebola-affected area in the 21 days before illness onset No symptoms or risks identified at this time. - Family history:: pertinent for diabetes, negative fo h/o brain aneuryms. - Hospitalizations: : No recent hospitalization is reported. ROS: 08:54 Constitutional: Negative for fever, chills, and weight loss, Eyes: Negative for injury, wa pain, redness, and discharge, ENT: Negative for injury, pain, and discharge, Neck: Negative for injury, pain, and swelling, Cardiovascular: Negative for chest pain, palpitations, and edema, Respiratory: Negative for shortness of breath, cough, wheezing, and pleuritic chest pain, Back: Negative for injury and pain, : Negative for injury, bleeding, discharge, and swelling, MS/Extremity: Negative for injury and deformity, Skin: Negative for injury, rash, and discoloration, Psych: Negative for depression, anxiety, suicide ideation, homicidal ideation, and hallucinations. 08:54 Abdomen/GI: Positive for abdominal pain, vomiting, Negative for nausea, diarrhea. 08:54 Neuro: Positive for headache, Negative for altered mental status, dizziness, loss of consciousness, speech changes, syncope, weakness. 08:54 All other systems are negative. Exam: 08:55 Constitutional: This is a well developed, well nourished patient who is awake, alert, wa and in no acute distress. Head/Face: Normocephalic, atraumatic. ENT: Nares patent. No nasal discharge, no septal abnormalities noted. Tympanic membranes are normal and external auditory canals are clear. Oropharynx with no redness, swelling, or masses, exudates, or evidence of obstruction, uvula midline. Mucous membranes moist. Neck: Trachea midline, no thyromegaly or masses palpated, and no cervical lymphadenopathy. Supple, full range of motion without nuchal rigidity, or vertebral point tenderness. No Meningismus. Cardiovascular: Regular rate and rhythm with a normal S1 and S2. No gallops, murmurs, or rubs. Normal PMI, no JVD. No pulse deficits. Respiratory: Lungs have equal breath sounds bilaterally, clear to auscultation and percussion. No rales, rhonchi or wheezes noted. No increased work of breathing, no retractions or nasal flaring. Back: No spinal tenderness. No costovertebral tenderness. Full range of motion. Skin: Warm, dry with normal turgor. Normal color with no rashes, no lesions, and no evidence of cellulitis. MS/ Extremity: Pulses equal, no cyanosis. Neurovascular intact. Full, normal range of motion. Neuro: Awake and alert, GCS 15, oriented to person, place, time, and situation. Cranial nerves II-XII grossly intact. Motor strength 5/5 in all extremities. Sensory grossly intact. Cerebellar exam normal. Normal gait. Psych: Awake, alert, with orientation to person, place and time. Behavior, mood, and affect are within normal limits. 08:55 Abdomen/GI: Inspection: abdomen appears normal, Bowel sounds: normal, in all quadrants, Palpation: mild abdominal tenderness, in the epigastric area. Vital Signs: 08:19 BP 167 / 77; Pulse 84; Resp 16; Temp 98.2; Pulse Ox 98% ; Weight 72.57 kg; Height 5 ft. bp 2 in. (157.48 cm); 09:23 BP 176 / 69; Pulse 79; Resp 18; Pulse Ox 99% ; bp 10:37 BP 145 / 68; Pulse 70; Resp 16; Pulse Ox 100% ; bp 11:30 BP 151 / 77; Pulse 73; Resp 14; Pulse Ox 100% ; bp 12:30 BP 124 / 78; Pulse 72; Resp 14; Pulse Ox 100% ; bp 13:30 BP 149 / 69; Pulse 70; Resp 14; Pulse Ox 100% ; bp 14:30 BP 152 / 60; Pulse 69; Resp 14; Pulse Ox 100% ; bp 15:30 BP 164 / 55; Pulse 65; Resp 15; Pulse Ox 100% ; bp 16:00 BP 150 / 64; Pulse 71; Resp 16; Pulse Ox 100% ; bp 08:19 Body Mass Index 29.26 (72.57 kg, 157.48 cm) bp MDM: 08:16 Patient medically screened. ca 08:55 Differential diagnosis: cerebral vascular accident, hypertensive headache, wa intracerebral hemorrhage, migraine, neoplasm, subarachnoid bleed, tension headache. 09:26 Special discussion: 919 hrs: per radiologist, pt with either gastric ischemia or wa perforated ulcer. will add broad spec abx. and consult surgery immediately. will order lactate and blood cultures to orders. awaiting call back from surgery. 09:39 Special discussion: 929 hrs: spoke with surgeon Dr. Santamaria. advised he will look at wa film and come see pt. 09:43 Data reviewed: vital signs, nurses notes. Test interpretation: by ED physician or wa midlevel provider: EKG: interp by me. HR 77. LAD noted. noted incomplete RBBB. nml intervals. no acute dysrhythmic changes. 09:44 Special discussion: 0940Hrs: re-exam, no peritonitis. abd soft. pt's c/o LYN more so wa than abd pain. 10:25 Test interpretation: by ED physician or midlevel provider: labs noted for nml lactic wa acid. hyperglycemia. mild decreased platelets. low H/H of 11.4 and 35.4. . Special discussion: 1015 hrs: per Dr. Santamaria, admit to hsptlist and consult him and GI Dr. eDnt. . 10:30 Test interpretation: by ED physician or midlevel provider: head CT: moderate atrophy. wa chronic ischemic changes. CT abd/pelvis: gastric and hepatic vein gas concerning for ischemia vs perforated gastric ulcer. . Special discussion: began protonix bolus and drip. spoke w/ Dr. Holliday for admit. awaiting call back from GI Dr. Dent. . 10:45 Response to treatment: the patient's symptoms have mildly improved after treatment. ca Special discussion: spoke with Dr. Dent. Agreed to see pt. will admit as advised. 06/24 08:41 Order name: Basic Metabolic Panel ca 06/24 08:41 Order name: CBC with Diff; Complete Time: 09:37 06/24 08:41 Order name: Hepatic Function 06/24 08:41 Order name: Lipase; Complete Time: 10:19 06/24 08:41 Order name: Magnesium; Complete Time: 10:20 06/24 08:41 Order name: NT PRO-BNP; Complete Time: 10:19 06/24 08:41 Order name: PT-INR; Complete Time: 10:20 06/24 08:41 Order name: Troponin (emerg Dept Use Only); Complete Time: 10:20 ca 06/24 08:42 Order name: Basic Metabolic Panel; Complete Time: 10:19 EDMT 06/24 08:42 Order name: Liver (Hepatic) Function; Complete Time: 10:19 EDMT 06/24 09:23 Order name: Lactate; Complete Time: 10:22 ca 06/24 09:25 Order name: Urine Microscopic Only ca 06/24 09:25 Order name: Blood Culture Adult (2) ca 06/24 11:14 Order name: D-Dimer; Complete Time: 12:08 ca 06/24 08:41 Order name: CT Head Brain wo Cont; Complete Time: 09:18 ca 06/24 08:41 Order name: XRAY Chest (1 view); Complete Time: 10:50 ca 06/24 08:41 Order name: EKG; Complete Time: 08:42 ca 06/24 08:42 Order name: CT Abd/Pelvis - Without Cont; Complete Time: 10:40 ca 06/24 11:15 Order name: CT Abdomen - Angio; Complete Time: 12:08 ca 06/24 11:38 Order name: Dr Deric Dent [facility] 06/24 12:57 Order name: Urine Dipstick--Ancillary (enter results) 06/24 14:39 Order name: Urine Dipstick-Ancillary [facility] 06/24 08:41 Order name: IV Saline Lock; Complete Time: 09:18 ca 06/24 08:41 Order name: Labs collected and sent; Complete Time: 09:18 ca 06/24 08:41 Order name: Cardiac monitoring; Complete Time: 09:53 ca 06/24 08:41 Order name: EKG - Nurse/Tech; Complete Time: 09:53 ca 06/24 08:41 Order name: O2 Per Protocol; Complete Time: 09:06 ca 06/24 08:41 Order name: O2 Sat Monitoring; Complete Time: 09:06 ca 06/24 09:25 Order name: Urine Dipstick-Ancillary (obtain specimen); Complete Time: 13:01 ca Administered Medications: 09:10 Drug: Zofran 4 mg Route: IVP; Site: left antecubital; bp 09:51 Follow up: Response: No adverse reaction; Nausea is decreased bp 09:10 Drug: NS 0.9% 1000 ml Route: IV; Rate: 1 bolus; Site: left antecubital; bp 10:30 Follow up: IV Status: Completed infusion; IV Intake: 1000ml bp 09:10 Drug: Pepcid 20 mg Route: IVP; Site: left antecubital; bp 09:52 Follow up: Response: No adverse reaction bp 09:10 Drug: fentaNYL (PF) 25 mcg Route: IVP; Site: left antecubital; bp 09:52 Follow up: Response: No adverse reaction bp 09:51 Drug: Zosyn 3.375 grams Route: IVPB; Infused Over: 60 mins; Site: left antecubital; bp 10:30 Follow up: IV Status: Completed infusion; IV Intake: 100ml bp 10:30 Drug: vancoMYCIN 1 grams Route: IVPB; Infused Over: 2 hrs; Site: left antecubital; bp 12:00 Follow up: IV Status: Completed infusion; IV Intake: 250ml bp 10:30 Drug: ProTONIX 40 mg Route: IVP; Site: left antecubital; bp 10:36 Follow up: Response: No adverse reaction bp 11:10 Drug: ProTONIX 8 mg/hr Route: IV; Rate: 25 ml/hr; Site: left forearm; bp 15:33 Follow up: IV Status: Infusion continued upon admission bp Disposition: 06/24/18 10:49 Hospitalization ordered by Halie Holliday for Inpatient Admission. Preliminary diagnosis are Acute abdominal pain, gas in gastric and hepatic portal vein system concerning for ischemia vs perforated gastric ulcer, headache, Vomiting. - Bed requested for Telemetry/MedSurg (Inpatient). - Status is Inpatient Admission. bp - Condition is Guarded. - Problem is new. - Symptoms have improved. UTI on Admission? No Critical care time excluding procedures: 10:49 Critical care time: Bedside Care: 10 minutes, Consultation: 15 minutes, Family wa Intervention: 5 minutes. Total time: 30 minutes Signatures: Dispatcher [employer] EDMS Preston Andrew MD MD wa Peltier, Brian, RN RN Debo Mcarthur [email or web address] Corrections: (The following items were deleted from the chart) 15:02 10:49 Hospitalization Ordered by Halie Holliday MD for Inpatient Admission. Preliminary kj1 diagnosis is Acute abdominal pain; gas in gastric and hepatic portal vein system concerning for ischemia vs perforated gastric ulcer; headache; Vomiting. Bed requested for Telemetry/MedSurg (Inpatient). Status is Inpatient Admission. Condition is Guarded. Problem is new. Symptoms have improved. UTI on Admission? No. stephanie 16:16 15:02 06/24/2018 10:49 Hospitalization Ordered by Halie Holliday MD for Inpatient bp Admission. Preliminary diagnosis is Acute abdominal pain; gas in gastric and hepatic portal vein system concerning for ischemia vs perforated gastric ulcer; headache; Vomiting. Bed requested for Telemetry/MedSurg (Inpatient). Status is Inpatient Admission. Condition is Guarded. Problem is new. Symptoms have improved. UTI on Admission? No. kj1
--- NOTE | 2018-06-24 10:50 | ER ---
Nurse's Notes [facility] Name: Leydi Guerrier Age: 72 yrs Sex: Female : 1945 Arrival Date: 06/24/2018 Time: 08:15 Bed 16 Private MD: Diagnosis: Acute abdominal pain;gas in gastric and hepatic portal vein system concerning for ischemia vs perforated gastric ulcer;headache;Vomiting Presentation: 06/24 08:15 Presenting complaint: EMS states: HEADACHE, ABDOMINAL PAIN SINCE 0100. Transition of bp care: patient was not received from another setting of care. Onset of symptoms was June 24, 2018 at 01:00. Risk Assessment: Do you want to hurt yourself or someone else? Patient reports no desire to harm self or others. Initial Sepsis Screen: Does the patient meet any 2 criteria? No. Patient's initial sepsis screen is negative. Does the patient have a suspected source of infection? No. Patient's initial sepsis screen is negative. Care prior to arrival: Glucose check: 278. 08:15 Method Of Arrival: EMS: [facility] bp 08:15 Acuity: ADY 3 bp Triage Assessment: 08:19 Headache History: The patient has had previous headaches and this one is similar to bp previous episodes. General: Appears in no apparent distress. comfortable, obese, Behavior is cooperative, appropriate for age, anxious. Pain: Complains of pain in head and abdomen Pain currently is 5 out of 10 on a pain scale. Pain began 4 hours ago. Also complains of nausea. EENT: No deficits noted. Neuro: Level of Consciousness is awake, alert, obeys commands, Oriented to person, place, time, situation, Appropriate for age. Cardiovascular: No deficits noted. Respiratory: Airway is patent Respiratory effort is even, unlabored, Respiratory pattern is regular, symmetrical. GI: Abdomen is obese, Bowel sounds present X 4 quads. : No signs and/or symptoms were reported regarding the genitourinary system. Derm: No deficits noted. Musculoskeletal: Circulation, motion, and sensation intact. Range of motion: intact in all extremities. Historical: - Allergies: 08:19 Morphine; bp - Home Meds: 08:19 lisinopril 10 mg Oral tab 1 tab once daily [Active]; metformin 500 mg Oral tab 1 tab 2 bp times per day for Type 2 Diabetes Mellitus [Active]; oxybutynin chloride 10 mg Oral tr24 1 tab once daily [Active]; Plavix 75 mg Oral tab 1 tab once daily for Myocardial Reinfarction Prevention [Active]; pregabalin 75 MG Oral 1 cap 2 times per day [Active]; Protonix 40 mg Oral TbEC 1 tab once daily [Active]; simvastatin 20 mg Oral tab 1 tab once daily for Mixed Hyperlipidemia [Active]; - PMHx: 08:19 CAD; CVA; Diabetes - IDDM; Glaucoma; High Cholesterol; Hypertension; legally blind; bp - Immunization history:: Adult Immunizations up to date. - Social history:: Smoking status: Patient/guardian denies using tobacco. - Ebola Screening: : Patient negative for fever greater than or equal to 101.5 degrees Fahrenheit, and additional compatible Ebola Virus Disease symptoms Patient denies exposure to infectious person Patient denies travel to an Ebola-affected area in the 21 days before illness onset No symptoms or risks identified at this time. - Family history:: pertinent for diabetes, negative fo h/o brain aneuryms. - Hospitalizations: : No recent hospitalization is reported. Screenin:21 Abuse screen: Denies threats or abuse. Denies injuries from another. Nutritional bp screening: No deficits noted. Tuberculosis screening: No symptoms or risk factors identified. Fall Risk None identified. Assessment: 08:21 General: SEE TRIAGE NOTE. Pain: Complains of pain in abdomen and head. bp 09:08 Reassessment: PT RETURNED FROM CT. bp 09:21 Reassessment: Dr. Andrew on phone speaking with Dr. Modi (radiologist). ss 12:00 Reassessment: ADMIT IN PROCESS. PT ABDOMINAL EXAM REMAINS BENIGN. bp 14:00 Reassessment: SURGERY C/S AT B/S. PT NOT A SURGICAL CANDIDATE AT THIS TIME. GI C/S AND bp ADMIT PENDING. Vital Signs: 08:19 BP 167 / 77; Pulse 84; Resp 16; Temp 98.2; Pulse Ox 98% ; Weight 72.57 kg; Height 5 ft. bp 2 in. (157.48 cm); 09:23 BP 176 / 69; Pulse 79; Resp 18; Pulse Ox 99% ; bp 10:37 BP 145 / 68; Pulse 70; Resp 16; Pulse Ox 100% ; bp 11:30 BP 151 / 77; Pulse 73; Resp 14; Pulse Ox 100% ; bp 12:30 BP 124 / 78; Pulse 72; Resp 14; Pulse Ox 100% ; bp 13:30 BP 149 / 69; Pulse 70; Resp 14; Pulse Ox 100% ; bp 14:30 BP 152 / 60; Pulse 69; Resp 14; Pulse Ox 100% ; bp 15:30 BP 164 / 55; Pulse 65; Resp 15; Pulse Ox 100% ; bp 16:00 BP 150 / 64; Pulse 71; Resp 16; Pulse Ox 100% ; bp 08:19 Body Mass Index 29.26 (72.57 kg, 157.48 cm) bp ED Course: 08:15 Patient arrived in ED. bp 08:16 Preston Andrew MD is Attending Physician. wa 08:16 Triage completed. bp 08:19 Arm band placed on. bp 08:21 Patient has correct armband on for positive identification. Bed in low position. Call bp light in reach. Side rails up X2. Adult w/ patient. 08:53 CT completed. Patient tolerated procedure well. Patient moved to CT via stretcher. Patient moved back from CT. 08:59 CT Head Brain wo Cont In Process Unspecified. EDMS 08:59 CT Abd/Pelvis - Without Cont In Process Unspecified. EDMS 09:05 Adan Jalloh, RN is Primary Nurse. bp 09:18 Initial lab(s) drawn, by me, sent to lab. Inserted saline lock: 20 gauge in left em1 antecubital area, using aseptic technique. Blood collected. 09:30 Inserted saline lock: 20 gauge in left forearm, using aseptic technique. Blood bp collected. 10:03 XRAY Chest (1 view) In Process Unspecified. EDMS 10:47 Halie Holliday MD is Hospitalizing Provider. wa 11:[address] via stretcher. sj 11:33 CT completed. Patient tolerated procedure well. Patient moved back from CT. sj 11:38 CT Abdomen - Angio In Process Unspecified. EDMS 15:56 No provider procedures requiring assistance completed. Patient admitted, IV remains in bp place. Administered Medications: 09:10 Drug: Zofran 4 mg Route: IVP; Site: left antecubital; bp 09:51 Follow up: Response: No adverse reaction; Nausea is decreased bp 09:10 Drug: NS 0.9% 1000 ml Route: IV; Rate: 1 bolus; Site: left antecubital; bp 10:30 Follow up: IV Status: Completed infusion; IV Intake: 1000ml bp 09:10 Drug: Pepcid 20 mg Route: IVP; Site: left antecubital; bp 09:52 Follow up: Response: No adverse reaction bp 09:10 Drug: fentaNYL (PF) 25 mcg Route: IVP; Site: left antecubital; bp 09:52 Follow up: Response: No adverse reaction bp 09:51 Drug: Zosyn 3.375 grams Route: IVPB; Infused Over: 60 mins; Site: left antecubital; bp 10:30 Follow up: IV Status: Completed infusion; IV Intake: 100ml bp 10:30 Drug: vancoMYCIN 1 grams Route: IVPB; Infused Over: 2 hrs; Site: left antecubital; bp 12:00 Follow up: IV Status: Completed infusion; IV Intake: 250ml bp 10:30 Drug: ProTONIX 40 mg Route: IVP; Site: left antecubital; bp 10:36 Follow up: Response: No adverse reaction bp 11:10 Drug: ProTONIX 8 mg/hr Route: IV; Rate: 25 ml/hr; Site: left forearm; bp 15:33 Follow up: IV Status: Infusion continued upon admission bp Intake: 10:30 IV: 1000ml; Total: 1000ml. bp 10:30 IV: 100ml; Total: 1100ml. bp 12:00 IV: 250ml; Total: 1350ml. bp Outcome: 10:49 Decision to Hospitalize by Provider. ks 16:01 Admitted to Med/surg accompanied by tech, family with patient, via wheelchair, room bp 201, with chart, Report called to OTONIEL WOLFE 16:01 Condition: stable 16:01 Instructed on the need for admit. 16:16 Patient left the ED. bp Signatures: Dispatcher [employer] Lesia Jackman Eric em1 Kiki Brown, AIDEN WOLFE Preston Andrew MD MD wa Peltier, Brian, RN RN bp
--- NOTE | 2018-06-24 11:37 | EKG ---
Test Date: 2018-06-24 Test Time: 09:28:30 Information Security: OFE MEASUREMENT RESULTS: Intervals: Rate: 77 NC: 172 QRSD: 116 QT: 388 QTc: 439 Ruby: P: 53 NC: 172 QRS: -40 T: 23 INTERPRETIVE STATEMENTS: Normal sinus rhythm Left axis deviation Abnormal ECG Compared to ECG 09/01/2017 02:20:00 Left-axis deviation now present Left anterior fascicular block no longer present Electronically Signed On 06-24-18 11:37:24 CDT by Rolf Moulton
--- NOTE | 2018-06-24 12:02 | RAD REPORT ---
EXAM DESCRIPTION: CT - Abdomen Angio - 06/24/2018 11:38 am CLINICAL HISTORY: Abdominal pain COMPARISON: CT abdomen June 24, 2018 TECHNIQUE: Computed tomography angiography of the abdomen obtained. 100 cc Isovue 370 was administer ed intravenously. Coronal and sagittal reconstruction were performed. MIP 3D reconstruction was performed All CT scans are performed using dose optimization technique as appropriate and may include automated exposure control or mA/KV adjustment according to patient size. FINDINGS: An aortic dissection is not seen. An aortic aneurysm is not displayed. Mild plaque within the aorta Mild narrowing of the celiac artery. Mild to moderate plaque is visualized within the celiac and SMA. Calcified plaque within the proximal ALYSSIA 3 centimeters from its origin is present. This results in a moderate stenosis. . Refer to the CT abdomen report done earlier in the day for additional findings IMPRESSION: Mild to moderate plaque within the celiac and SMA without a significant stenosis Calcified plaque within the ALYSSIA resulting in a moderate stenosis.
[2018-06-24 13:24] LABS: Urine Bacteria <20 /HPF (<20); Urine Culture Reflex Order REFLEXED; Urine RBC <5 /HPF (NONE SEEN)
[2018-06-24 14:39] LABS: Urine Blood NEGATIVE (NEG); Urine Glucose 2+ (NEG); Urine Protein 1+ (NEG); Urine Specific Gravity 1.015 (1.005-1.030); Urine pH 6.5 (5.0-7.0)
--- NOTE | 2018-06-24 14:54 | P.CNS ---
Date of Consult: 06/24/18 PC: This 72-year-old female presented to the emergency room with headaches and nausea and vomiting. HPC: Patient was doing well yesterday. Had dinner, went to bed. Woke up around 1 o'clock in the morning with a headache, also had some nausea and vomiting. This morning she came in because of her persisting headaches. PMH: Diabetes, hypercholesterolemia, glaucoma legally blind PSHx: Had a colon resection in in the past SOC: No known allergies medication list reviewed SYS REVIEW: No cough, wheeze, shortness of breath. No chest pain or palpitations. States she has been in otherwise good health. No change in appetite. Does not take aspirin or any anti inflammatories on a chronic basis. O/E awake alert vital signs are stable interactive, no complaints HEENT: Patient is blind Chest: Chest movement equal bilaterally ABD: Soft nontender no guarding or rebound LOCO: Intact DATA: CT scan suggests air in the portal system. White cell count is normal. No alteration of her labs IMPRESSION: Air i appears to be in the portal venous system the radiology reading. PLAN: This patient GB admitted for observation. At the current time does not have any signs of acute abdomen. There is no clear-cut evidence of any a gastric perforation on the CT scan. Etiology of the gas noted on CT is unknown. Will follow with you, but does not require acute surgical intervention at the moment.
[2018-06-24 16:52] VITALS: BMI 29.2
[2018-06-24 17:14] LABS: Hematocrit 30.8 % (36.0-45.0); MPV 9.3 fL (7.6-11.3); RBC Red Blood Cell Count 3.81 M/uL (3.86-4.86)
[2018-06-24] MEDS: NA CHLORIDE 0.9% 1,000 ML IV SCH (17:53)
[2018-06-24] MEDS ORDERED: GLUCAGON 1 MG/VIAL IM PRN (18:34)
[2018-06-24] MEDS ORDERED: D50W 25 GM/50 ML SYRINGE IV PRN (18:34)
--- NOTE | 2018-06-24 18:34 | P.HP ---
Certification for Inpatient Patient admitted to: Inpatient Practitioner: I am a practitioner with admitting privileges, knowledge of patient current condition, hospital course, and medical plan of care. Services: Services provided to patient in accordance with Admission requirements found in Title 42 Section 412.3 of the Code of Federal Regulations Patient History Date of Service: 06/24/18 Reason for admission: Abdominal pain History of Present Illness: This is a 72 yr old female with multiple pmh of Abdominal pain, nausea and vomiting. Patient seen and examined at bedside, no family at bedside. Patient not a very good historian. Most of the history received from ER notes/chart review. Patient came in with acute abdominal pain with nausea/vomiting. The vomitus was brown/black, approximately a cupful. She has not been able to eat and is generally feeling poor. In the ER, CT of the abdomen positive fo rhepatic portal venous gas in 2 veins adjacent to stomach, no free air. Suspicious for PUD vs ischemia. She was hemodynamically stable. At the time of my exam, patient was in moderate distress d/t abdominal pain. Allergies morphine Adverse Reaction (Unknown, Verified 06/21/16 02:57) unknown Home medications list reviewed: Yes Home Medications: Atorvastatin Calcium 20 mg PO BEDTIME 06/25/18 Cyanocobalamin (Vitamin B-12) [Vitamin B-12] 3,000 mcg PO DAILY 06/25/18 Ergocalciferol (Vitamin D2) [Vitamin D2] 50,000 unit PO SEECOM 06/25/18 Glipizide [Glipizide ER] 20 mg PO BIDAC 06/25/18 Multivits Min/Iron/FA/Herb#186 [Hair, Skin and Nails Caplet] 1 each PO DAILY Pregabalin [Lyrica] 150 mg PO TID 06/25/18 Sitagliptin Phosphate [Januvia] 25 mg PO DAILY 06/25/18 - Past Medical/Surgical History Diabetic: Yes -: neuropathy -: CAD -: Diabetes mellitus type 2 -: Glaucoma -: Hyperlipidemia -: Obesity -: Recurrent UTI -: PVD -: Previous amputation of the great toe left -: Amputation to the great toe. -: Cardiac stent -: Appendectomy -: boil lower back -: hysterectomy -: cj cataracts sx -: Jessy -: L big toe amputation Psychosocial/ Personal History: Lives at home with poor family support. - Family History Father -: Heart disease Notes: heart attack. Mother -: Diabetes, Other (see notes) Notes: . Alzheimer's - Social History Smoking Status: Former smoker Alcohol use: No CD- Drugs: No Caffeine use: Yes Place of Residence: Home Review of Systems 10-point ROS is otherwise unremarkable Physical Examination - Vital Signs Temperature: 97.1 F Blood Pressure: 166/72 Pulse: 63 Respirations: 18 Pulse Ox (%): 99 - Physical Exam General: Alert, Oriented x3, Moderate distress HEENT: Other (Legally blind) Neck: Supple, 2+ carotid pulse no bruit, No LAD, Without JVD or thyroid abnormality Respiratory: Clear to auscultation bilaterally, Normal air movement Cardiovascular: Regular rate/rhythm, Normal S1 S2 Gastrointestinal: Normal bowel sounds, Tenderness, Guarding Musculoskeletal: No tenderness Integumentary: No rashes Neurological: Normal speech, Normal strength at 5/5 x4 extr, Normal tone, Normal affect - Studies Laboratory Data (last 24 hrs) 06/24/18 09:10: PT 10.9, INR 0.92 06/24/18 09:10: WBC 9.3, Hgb 11.4 L, Hct 35.4 L, Plt Count 150 L 06/24/18 09:10: Sodium 142, Potassium 4.4, BUN 16, Creatinine 0.97, Glucose 300 H, Magnesium 1.8, Total Bilirubin 0.5, AST 12 L, ALT 14, Alkaline Phosphatase 93 , Lipase 117 Assessment and Plan - Problems (Diagnosis) (1) Abdominal pain Current Visit: Yes Status: Acute (2) PUD (peptic ulcer disease) Current Visit: Yes Status: Suspected (3) Diabetes mellitus type II, uncontrolled Onset Date: 10/20/15 Current Visit: No Status: Chronic Qualifiers: Glycemic state: with hyperglycemia Qualified Code(s): E11.65 - Type 2 diabetes mellitus with hyperglycemia (4) Coronary artery disease Current Visit: No Status: Chronic Qualifiers: Coronary Disease-Associated Artery/Lesion type: unspecified vessel or lesion type [place] vs. transplanted heart: unspecified whether [place] or transplanted heart Associated angina: without angina Qualified Code(s): I25.10 - Atherosclerotic heart disease of [place] coronary artery without angina pectoris (5) GERD (gastroesophageal reflux disease) Current Visit: No Status: Chronic Qualifiers: Esophagitis presence: esophagitis presence not specified Qualified Code(s) : K21.9 - Gastro-esophageal reflux disease without esophagitis (6) Hypertension Current Visit: No Status: Chronic Qualifiers: Hypertension type: essential hypertension Qualified Code(s): I10 - Essential (primary) hypertension - Plan This is a 72 year old female with: Abdominal pain PUD vs ischemia Keep NPO IVF, IV pain control GI consult IV protonix HTN Stable, hold PO meds. Will do IV BP control prn DM2 Accu-checks, mild sliding scale insulin HLD Khurram restart home meds once tolerating PO CAD w/o angina Stable, will restart home meds when tolerating PO Neuropathy Stable, will restart home meds when tolerating PO DVT prophylaxis: Hold GI prophylaxis: IV protonix Diet: NPO Dispo: Admit to floor with tele. Pending GI eval - Advance Directives Does patient have a Living Will: No Does patient have a Durable POA for Healthcare: Yes Time Spent Managing Pts Care (In Minutes): 55
[2018-06-24] MEDS ORDERED: MAGNESIUM SULFATE 1 gm IVPB 1 GM/100 ML BAG IV ONE (19:00)
[2018-06-24] MEDS ORDERED: INSULIN -REGULAR HUMAN 50 UNIT/0.5 ML ML SQ SCH (21:00)
[2018-06-25] MEDS ORDERED: cloNIDine HCl 0.1 MG TAB PO ONE (00:20)
[2018-06-25] MEDS: FENTANYL CITR 100 MCG/2 ML IV PRN ×2 (00:22→17:22)
[2018-06-25] MEDS: ONDANSETRON 4 MG/2 ML VIAL IV PRN ×2 (00:22→22:13)
[2018-06-25] MEDS: NA CHLORIDE 0.9% 1,000 ML IV SCH ×2 (03:12→13:00)
[2018-06-25] MEDS: INSULIN -REGULAR HUMAN 50 UNIT/0.5 ML ML SQ SCH ×3 (06:00→18:00)
[2018-06-25 08:28] LABS: Albumin 3.1 g/dL (3.4-5.0); Bilirubin Total 0.6 mg/dL (0.2-1.0); Potassium 3.4 mmol/L (3.5-5.1); Protein, Total 6.3 g/dL (6.4-8.2)
[2018-06-25 14:12] LABS: Protime INR 1.04
[2018-06-25] MEDS: PANTOPRAZOLE INJ 80 MG in NA CHLORIDE 0.9% 250 ML IV SCH (14:44)
--- NOTE | 2018-06-25 17:59 | P.PN ---
Subjective Date of Service: 06/25/18 Chief Complaint: Abdominal pain Patient seen and examined at bedside. Grandson at bedside. Reports improved abdominal pain Patient very irritated because she wants to eat. Review of Systems 10-point ROS is otherwise unremarkable Physical Examination - Vital Signs Temperature: 97.1 F Blood Pressure: 166/72 Pulse: 63 Respirations: 18 Pulse Ox (%): 99 - Physical Exam General: Alert, Oriented x3, Mild distress HEENT: Other (Legally blind, bilateral eyes) Neck: Supple, JVD not distended Respiratory: Clear to auscultation bilaterally, Normal air movement Cardiovascular: Regular rate/rhythm, Normal S1 S2 Gastrointestinal: Normal bowel sounds, Tenderness, Guarding Musculoskeletal: No tenderness Integumentary: No rashes Assessment And Plan - Current Problems (Diagnosis) (1) Abdominal pain Current Visit: Yes Status: Acute (2) PUD (peptic ulcer disease) Current Visit: Yes Status: Suspected (3) Diabetes mellitus type II, uncontrolled Onset Date: 10/20/15 Current Visit: No Status: Chronic Qualifiers: Glycemic state: with hyperglycemia Qualified Code(s): E11.65 - Type 2 diabetes mellitus with hyperglycemia (4) Coronary artery disease Current Visit: No Status: Chronic Qualifiers: Coronary Disease-Associated Artery/Lesion type: unspecified vessel or lesion type [place] vs. transplanted heart: unspecified whether [place] or transplanted heart Associated angina: without angina Qualified Code(s): I25.10 - Atherosclerotic heart disease of [place] coronary artery without angina pectoris (5) GERD (gastroesophageal reflux disease) Current Visit: No Status: Chronic Qualifiers: Esophagitis presence: esophagitis presence not specified Qualified Code(s) : K21.9 - Gastro-esophageal reflux disease without esophagitis (6) Hypertension Current Visit: No Status: Chronic Qualifiers: Hypertension type: essential hypertension Qualified Code(s): I10 - Essential (primary) hypertension - Plan This is a 72 year old female with: Abdominal pain PUD vs ischemia Continue NPO Continue IVF, IV pain control GI consult, Recommendations apprecitated. Pending EGD tomorrow. Continue IV protonix HTN Stable, hold PO meds. Will do IV BP control prn DM2 Accu-checks, mild sliding scale insulin HLD Khurram restart home meds once tolerating PO CAD w/o angina Stable, will restart home meds when tolerating PO Neuropathy Stable, will restart home meds when tolerating PO DVT prophylaxis: Hold GI prophylaxis: IV protonix Diet: NPO Dispo: Pending GI eval, and EGD tomorrow.
[2018-06-25] MEDS: HYDRALAZINE HCL 20 MG/ML VIAL IV PRN (22:13)
[2018-06-26] MEDS: FENTANYL CITR 100 MCG/2 ML IV PRN ×2 (00:48→19:22)
[2018-06-26] MEDS: NA CHLORIDE 0.9% 1,000 ML IV SCH ×4 (00:49→17:57)
[2018-06-26] MEDS: PANTOPRAZOLE INJ 80 MG in NA CHLORIDE 0.9% 250 ML IV SCH ×3 (00:49→23:56)
[2018-06-26] MEDS: ONDANSETRON 4 MG/2 ML VIAL IV PRN ×2 (03:38→19:24)
[2018-06-26] MEDS: INSULIN -REGULAR HUMAN 50 UNIT/0.5 ML ML SQ SCH ×4 (06:00→17:46)
[2018-06-26 07:39] LABS: Magnesium 1.7 mg/dL (1.8-2.4); Potassium 3.2 mmol/L (3.5-5.1)
--- NOTE | 2018-06-26 10:32 | P.PN ---
Subjective Date of Service: 06/26/18 Chief Complaint: Abdominal pain Subjective: No new changes Patient seen and examined at bedside. Grandson at bedside. Reports improved abdominal pain, though still there. Review of Systems 10-point ROS is otherwise unremarkable Physical Examination - Vital Signs Temperature: 98 F Blood Pressure: 182/74 Pulse: 74 Respirations: 18 Pulse Ox (%): 98 - Physical Exam General: Alert, Oriented x3, Mild distress HEENT: Other (Legally blind) Neck: Supple Respiratory: Clear to auscultation bilaterally, Normal air movement Cardiovascular: Regular rate/rhythm, Normal S1 S2 Gastrointestinal: Tenderness (Generalized), Guarding Assessment And Plan - Current Problems (Diagnosis) (1) Abdominal pain Current Visit: Yes Status: Acute (2) PUD (peptic ulcer disease) Current Visit: Yes Status: Suspected (3) Diabetes mellitus type II, uncontrolled Onset Date: 10/20/15 Current Visit: No Status: Chronic Qualifiers: Glycemic state: with hyperglycemia Qualified Code(s): E11.65 - Type 2 diabetes mellitus with hyperglycemia (4) Coronary artery disease Current Visit: No Status: Chronic Qualifiers: Coronary Disease-Associated Artery/Lesion type: unspecified vessel or lesion type [place] vs. transplanted heart: unspecified whether [place] or transplanted heart Associated angina: without angina Qualified Code(s): I25.10 - Atherosclerotic heart disease of [place] coronary artery without angina pectoris (5) GERD (gastroesophageal reflux disease) Current Visit: No Status: Chronic Qualifiers: Esophagitis presence: esophagitis presence not specified Qualified Code(s) : K21.9 - Gastro-esophageal reflux disease without esophagitis (6) Hypertension Current Visit: No Status: Chronic Qualifiers: Hypertension type: essential hypertension Qualified Code(s): I10 - Essential (primary) hypertension - Plan This is a 72 year old female with: Abdominal pain PUD vs ischemia Continue NPO Continue IVF, IV pain control GI consult, Recommendations apprecitated. Pending EGD today. Continue IV protonix HTN Elevated, as we are holding oral medications. Will continue IV hydralazine. Will restart oral blood pressure medications post EGD. DM2 Continue Accu-checks and mild sliding scale insulin HLD Will restart home meds once tolerating PO CAD w/o angina Stable, will restart home meds when tolerating PO Neuropathy Patient complaining of bilateral lower extremity pain, likely secondary to neuropathy as we are holding her medications. will restart home meds after EGD. DVT prophylaxis: Hold GI prophylaxis: IV protonix Diet: NPO Dispo: Pending GI eval, and EGD tomorrow.
[2018-06-26] MEDS ORDERED: NA CHLORIDE 0.9% 1,000 ML ONE (13:22)
[2018-06-26] MEDS ORDERED: LIDOCAINE 1% MPF 5 ML VIAL ONE (15:16)
[2018-06-26] MEDS ORDERED: PROPOFOL 200 MG/20 ML VIAL IV ONE (15:16)
[2018-06-26] MEDS: ENOXAPARIN 80 MG/0.8 ML SQ SCH (18:14)
[2018-06-26] MEDS: HYDRALAZINE HCL 20 MG/ML VIAL IV PRN (18:15)
[2018-06-26] MEDS ORDERED: MAGNESIUM SULFATE 1 gm IVPB 1 GM/100 ML BAG IV ONE (19:43)
--- NOTE | 2018-06-26 21:04 | ENDO RPT ---
[address], [address] EGD PROCEDURE REPORT EXAM DATE: 06/26/2018 PATIENT NAME: Leydi Guerrier MR#: [id number] BIRTHDATE: 1945 ATTENDING: Preston Dent Dr STATUS: inpatient - 7 GO CART MECHANIC: Shilpa Govea and Maritza Garcia RN INDICATIONS: The patient is a 72 yr old Female here for an EGD due to anemia PROCEDURE PERFORMED: EGD with biopsy MEDICATIONS: Per Anesthesia. TOPICAL ANESTHETIC: none CONSENT: The patient understands the risks and benefits of the procedure and understands that these risks include, but are not limited to: sedation, allergic reaction, infection, perforation and/or bleeding. Alternative means of evaluation and treatment include, among others: physical exam, x-rays, and/or surgical intervention. The patient elects to proceed with this endoscopic procedure. DESCRIPTION OF PROCEDURE: During intra-op preparation period all mechanical medical equipment was checked for proper function. Hand hygiene and appropriate measures for infection prevention was taken. Procedure, possible complications, and alternatives including but not limited to the possibility of bleeding, perforation, tear, infection, sepsis, need for surgery, need for blood transfusion, and anesthesia related complications were explained to the patient. After the risks, benefits and alternatives of the procedure were thoroughly explained, Informed consent was verified, confirmed and timeout was successfully executed by the treatment team. The patient was placed in the left lateral position. The patient was anesthetized with topical anesthesia. Through the anesthetized oropharyngeal area, the scope was passed without any difficulty. The Pentax [id number] ([id number]) endoscope was introduced through the mouth and advanced to the second portion of the duodenum. Retroflexed views revealed no abnormalities. The gastroscope was then slowly withdrawn and removed. Severe gastritis was found in the body and the antrum of the stomach. Multiple biopsies were obtained and sent to pathology. ADVERSE EVENTS: There were no complications. IMPRESSIONS: Severe patchy gastritis in the body and the antrum of the stomach -> appearance of Ischemic gastritis, s/p biopsies RECOMMENDATIONS: 1. await biopsy results 2. acid suppression therapy 3. Lovenox bid (consider re-imaging mesenteric vasculature) REPEAT EXAM: for EGD in [address] eSigned: Preston Dent Dr 06/26/2018 3:39 PM cc: CPT CODES: ICD9 CODES: PATIENT NAME: Leydi Guerrier MR#: [id number]
[2018-06-26] MEDS: KCL 20 MEQ/100 mL IVPB 20 MEQ/100 ML BAG IV SCH ×2 (21:18→23:56)
[2018-06-27] MEDS: ONDANSETRON 4 MG/2 ML VIAL IV PRN (00:55)
[2018-06-27] MEDS: HYDRALAZINE HCL 20 MG/ML VIAL IV PRN ×3 (00:55→20:12)
[2018-06-27] MEDS: FENTANYL CITR 100 MCG/2 ML IV PRN ×2 (00:55→20:13)
[2018-06-27] MEDS ORDERED: ONDANSETRON 4 MG/2 ML VIAL IV ONE (03:29)
[2018-06-27] MEDS: PANTOPRAZOLE INJ 80 MG in NA CHLORIDE 0.9% 250 ML IV SCH ×4 (04:32→21:58)
[2018-06-27] MEDS: NA CHLORIDE 0.9% 1,000 ML IV SCH ×2 (05:16→14:43)
[2018-06-27] MEDS: INSULIN -REGULAR HUMAN 50 UNIT/0.5 ML ML SQ SCH ×5 (05:33→20:17)
[2018-06-27 06:00] LABS: Absolute Lymphocytes (CBC) 1.8 K/uL (0.7-4.9); Absolute Monocytes 0.5 K/uL (0.1-1.3); Basophils % 0.8 % (0-1.3); Eosinophils % 0.8 % (0-4.4); Hematocrit 29.1 % (36.0-45.0); Lymphocytes % 24.4 % (15.3-44.8); MPV 9.3 fL (7.6-11.3); Monocytes % 6.8 % (3.3-12.3); RBC Red Blood Cell Count 3.66 M/uL (3.86-4.86)
[2018-06-27 06:33] LABS: ALT/SGPT 13 U/L (12-78); AST/SGOT 23 U/L (15-37); Albumin 2.8 g/dL (3.4-5.0); Alkaline Phosphatase 66 U/L (45-117); BUN Blood Urea Nitrogen 6 mg/dL (7-18); Bicarbonate 22 mmol/L (21-32); Bilirubin Total 0.6 mg/dL (0.2-1.0); Glucose Level 97 mg/dL (74-106); Potassium 3.4 mmol/L (3.5-5.1); Protein, Total 5.9 g/dL (6.4-8.2); Sodium Level 142 mmol/L (136-145)
[2018-06-27] MEDS: KCL 20 MEQ/100 mL IVPB 20 MEQ/100 ML BAG IV SCH ×2 (06:49→09:01)
[2018-06-27] MEDS ORDERED: ONDANSETRON 4 MG/2 ML VIAL IV PRN (07:30)
[2018-06-27] MEDS: ENOXAPARIN 80 MG/0.8 ML SQ SCH ×2 (09:01→20:12)
--- NOTE | 2018-06-27 12:19 | P.PN ---
Subjective Date of Service: 06/27/18 Chief Complaint: Abdominal pain Patient seen and examined at bedside. Grandson at bedside. Still complaining of abdominal pain Complaining of dizziness Elevated blood pressure this morning Review of Systems 10-point ROS is otherwise unremarkable Physical Examination - Vital Signs Temperature: 98.1 F Blood Pressure: 161/72 Pulse: 85 Respirations: 16 Pulse Ox (%): 96 - Physical Exam General: Alert, Moderate distress HEENT: Atraumatic, PERRLA Neck: Supple Respiratory: Clear to auscultation bilaterally, Normal air movement Cardiovascular: Regular rate/rhythm, Normal S1 S2 Gastrointestinal: Tenderness, Guarding Musculoskeletal: No tenderness Integumentary: No rashes Neurological: Normal speech, Normal tone, Normal affect Lymphatics: No axilla or inguinal lymphadenopathy Assessment And Plan - Current Problems (Diagnosis) (1) Abdominal pain Current Visit: Yes Status: Acute (2) PUD (peptic ulcer disease) Current Visit: Yes Status: Suspected (3) Diabetes mellitus type II, uncontrolled Onset Date: 10/20/15 Current Visit: No Status: Chronic Qualifiers: Glycemic state: with hyperglycemia Qualified Code(s): E11.65 - Type 2 diabetes mellitus with hyperglycemia (4) Coronary artery disease Current Visit: No Status: Chronic Qualifiers: Coronary Disease-Associated Artery/Lesion type: unspecified vessel or lesion type [place] vs. transplanted heart: unspecified whether [place] or transplanted heart Associated angina: without angina Qualified Code(s): I25.10 - Atherosclerotic heart disease of [place] coronary artery without angina pectoris (5) GERD (gastroesophageal reflux disease) Current Visit: No Status: Chronic Qualifiers: Esophagitis presence: esophagitis presence not specified Qualified Code(s) : K21.9 - Gastro-esophageal reflux disease without esophagitis (6) Hypertension Current Visit: No Status: Chronic Qualifiers: Hypertension type: essential hypertension Qualified Code(s): I10 - Essential (primary) hypertension - Plan This is a 72 year old female with: Abdominal pain PUD vs ischemia Try water and ice chips. If tolerates, will advance to clear liquid diet Continue IVF, IV pain control GI consult, Recommendations apprecitated. EGD with ischemic disease. Continue IV protonix Ischemic gastroenteritis Patient was started on Lovenox 1 mg/kg b.i.d. yesterday. Continue anticoagulation Continue IV Protonix HTN Elevated, as we are holding oral medications. Will continue IV hydralazine. If tolerating oral diet, will restart oral medications. DM2 Continue Accu-checks and mild sliding scale insulin HLD Will restart home meds once tolerating PO CAD w/o angina Stable, will restart home meds when tolerating PO Neuropathy Patient complaining of bilateral lower extremity pain, likely secondary to neuropathy as we are holding her medications. will restart home meds after EGD. DVT prophylaxis: Hold GI prophylaxis: IV protonix Diet: Ice chips and water. If tolerates, will advance to clear liquid diet Dispo: Pending symptomatic improvement.
--- NOTE | 2018-06-27 12:33 | P.PN ---
Subjective Date of Service: 06/27/18 Chief Complaint: Abdominal pain Subjective: Improving (No abdominal pain today. Tolerating po diet.) Review of Systems 10-point ROS is otherwise unremarkable General: Weakness (Improved.) Physical Examination - Vital Signs Temperature: 98.1 F Blood Pressure: 161/72 Pulse: 85 Respirations: 16 Pulse Ox (%): 96 - Physical Exam General: Alert, In no apparent distress, Oriented x3 HEENT: Atraumatic, Normocephalic, PERRLA, EOMI Neck: Supple Respiratory: Normal air movement Cardiovascular: Normal pulses Neurological: Normal speech, Normal strength at 5/5 x4 extr Assessment And Plan - Current Problems (Diagnosis) (1) Ischemic gastroenteritis Current Visit: Yes Status: Acute Comment: Probable ischemic gastritis noted on EGD yesterday. Lovenox bid started yesterday. Feels better and reports hunger. (2) Nausea & vomiting Current Visit: Yes Status: Acute (3) Anemia Current Visit: Yes Status: Acute (4) Abdominal pain Current Visit: Yes Status: Acute Comment: Improved. - Plan REC: 1) try water and ice chips; if tolerates, advance to clear liquids 2) continue Lovenox and PPI 3) monitor labs
[2018-06-27] MEDS ORDERED: D50W 25 GM/50 ML SYRINGE IV PRN (19:59)
[2018-06-27] MEDS ORDERED: GLUCAGON 1 MG/VIAL IM PRN (19:59)
[2018-06-27] MEDS ORDERED: KCL 20 MEQ/100 mL IVPB 20 MEQ/100 ML BAG IV SCH (22:00)
[2018-06-28] MEDS: NA CHLORIDE 0.9% 1,000 ML IV SCH ×3 (00:43→21:25)
[2018-06-28] MEDS: FENTANYL CITR 100 MCG/2 ML IV PRN (01:12)
[2018-06-28 06:01] LABS: Absolute Lymphocytes (CBC) 1.6 K/uL (0.7-4.9); Absolute Monocytes 0.4 K/uL (0.1-1.3); Absolute Neutrophil 2.6 K/uL (1.8-8.0); Basophils % 1.1 % (0-1.3); Eosinophils % 2.7 % (0-4.4); Hematocrit 28.1 % (36.0-45.0); Lymphocytes % 33.4 % (15.3-44.8); MPV 9.5 fL (7.6-11.3); Monocytes % 9.2 % (3.3-12.3); RBC Red Blood Cell Count 3.48 M/uL (3.86-4.86)
[2018-06-28 06:17] LABS: Albumin 2.8 g/dL (3.4-5.0); Bilirubin Total 0.6 mg/dL (0.2-1.0); Phosphorus 2.5 mg/dL (2.5-4.9); Potassium 3.4 mmol/L (3.5-5.1); Protein, Total 5.8 g/dL (6.4-8.2)
[2018-06-28] MEDS: KCL 20 MEQ/100 mL IVPB 20 MEQ/100 ML BAG IV SCH ×2 (06:57→08:34)
[2018-06-28] MEDS: INSULIN -REGULAR HUMAN 50 UNIT/0.5 ML ML SQ SCH ×4 (07:30→21:26)
[2018-06-28] MEDS: ENOXAPARIN 80 MG/0.8 ML SQ SCH ×2 (08:34→21:25)
[2018-06-28] MEDS: HYDRALAZINE HCL 20 MG/ML VIAL IV PRN (08:36)
[2018-06-28] MEDS: PANTOPRAZOLE INJ 80 MG in NA CHLORIDE 0.9% 250 ML IV SCH ×2 (10:12→11:12)
--- NOTE | 2018-06-28 10:25 | P.PN ---
Subjective Date of Service: 06/28/18 Chief Complaint: Abdominal pain Subjective: Improving (No abdominal pain reported today. Tolerating clear liquid diet well. On Lovenox 70 mg SQ bid for ischemic gastritis with equivocal CTA mesenteric vessels.) Review of Systems 10-point ROS is otherwise unremarkable General: Weakness (improved) Physical Examination - Vital Signs Temperature: 97.5 F Blood Pressure: 169/60 Pulse: 72 Respirations: 15 Pulse Ox (%): 99 - Physical Exam General: Alert, In no apparent distress, Oriented x3, Cooperative (sleepy) HEENT: Atraumatic, Normocephalic, PERRLA, EOMI Neck: Supple Respiratory: Normal air movement Cardiovascular: Normal pulses Gastrointestinal: Soft and benign, No tenderness, No rebound, No guarding Neurological: Normal speech Assessment And Plan - Current Problems (Diagnosis) (1) Ischemic gastroenteritis Current Visit: Yes Status: Acute Comment: Probable ischemic gastritis noted on EGD. Lovenox bid started 2 days ago. Feels better and reports hunger, tolerated CL diet well yesterday. (2) Nausea & vomiting Current Visit: Yes Status: Acute Comment: Resolved. (3) Anemia Current Visit: Yes Status: Acute (4) Abdominal pain Current Visit: Yes Status: Acute Comment: Improved. - Plan REC: 1) advance diet to full liquids 2) continue Lovenox and PPI 3) monitor labs
--- NOTE | 2018-06-28 12:37 | P.PN ---
Subjective Date of Service: 06/28/18 Chief Complaint: Abdominal pain Subjective: Improving Patient seen and examined at bedside. Grandson at bedside. Chart reviewed and case discussed with Dr. dent. Patient complaining of left abdominal pain this morning. She is very sleepy, though arousable. Did tolerate Jell-O this morning. 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) Neck: Supple, JVD not distended Respiratory: Clear to auscultation bilaterally, Normal air movement Cardiovascular: Regular rate/rhythm, Normal S1 S2 Gastrointestinal: Normal bowel sounds, No guarding, Tenderness (No guarding noted today) Musculoskeletal: No tenderness Integumentary: No rashes Neurological: Normal speech, Normal tone, Normal affect Lymphatics: No axilla or inguinal lymphadenopathy - Studies Laboratory Data (last 24 hrs) 06/28/18 05:27: Sodium 143, Potassium 3.4 L, BUN 7, Creatinine 0.67, Glucose 92 , Phosphorus 2.5, Total Bilirubin 0.6, AST 24, ALT 14, Alkaline Phosphatase 60 06/28/18 05:27: WBC 4.8 D, Hgb 9.3 L, Hct 28.1 L, Plt Count 130 L 06/27/18 19:50: Potassium 3.8 Medications List Reviewed: Yes Assessment And Plan - Current Problems (Diagnosis) (1) Abdominal pain Current Visit: Yes Status: Acute (2) PUD (peptic ulcer disease) Current Visit: Yes Status: Suspected (3) Diabetes mellitus type II, uncontrolled Onset Date: 10/20/15 Current Visit: No Status: Chronic Qualifiers: Glycemic state: with hyperglycemia Qualified Code(s): E11.65 - Type 2 diabetes mellitus with hyperglycemia (4) Coronary artery disease Current Visit: No Status: Chronic Qualifiers: Coronary Disease-Associated Artery/Lesion type: unspecified vessel or lesion type [place] vs. transplanted heart: unspecified whether [place] or transplanted heart Associated angina: without angina Qualified Code(s): I25.10 - Atherosclerotic heart disease of [place] coronary artery without angina pectoris (5) GERD (gastroesophageal reflux disease) Current Visit: No Status: Chronic Qualifiers: Esophagitis presence: esophagitis presence not specified Qualified Code(s) : K21.9 - Gastro-esophageal reflux disease without esophagitis (6) Hypertension Current Visit: No Status: Chronic Qualifiers: Hypertension type: essential hypertension Qualified Code(s): I10 - Essential (primary) hypertension - Plan This is a 72 year old female with: Abdominal pain PUD vs ischemia Advanced to full liquid diet, as patient tolerating clear liquids. Continue IVF, IV pain control GI consult, Recommendations apprecitated. EGD with ischemic disease. Continue IV protonix and Lovenox b.i.d. Ischemic gastroenteritis Continue Lovenox 1 mg/kg b.i.d. Continue IV Protonix Seems to be tolerating well. HTN Start oral lisinopril 10 mg daily. Will continue IV hydralazine. Patient not on any diabetes medications at home at this time. DM2 Continue Accu-checks and mild sliding scale insulin Hold oral diabetes agents HLD Restart home medications as patient tolerating p.o. CAD w/o angina Stable, restart home meds as patient tolerating p.o. Neuropathy Patient complaining of bilateral lower extremity pain, likely secondary to neuropathy as we are holding her medications. will restart home meds DVT prophylaxis: Lovenox as above GI prophylaxis: IV protonix Diet: Full liquid Dispo: Pending symptomatic improvement. Social work consult for discharge planning placed. Physical therapy consult placed
[2018-06-28] MEDS: PREGABALIN 150 MG CAP PO SCH ×2 (14:24→21:00)
[2018-06-28] MEDS ORDERED: POTASSIUM CL SA 10 MEQ TAB PO ONE (21:00)
[2018-06-28] MEDS ORDERED: ATORVASTATIN 20 MG TAB PO SCH (21:00)
[2018-06-28] MEDS: PANTOPRAZOLE 40 MG INJ IV SCH (21:25)
[2018-06-28] MEDS: SODIUM CHLORIDE 0.9% 10ML INJ IV SCH (21:25)
[2018-06-29] MEDS: NA CHLORIDE 0.9% 1,000 ML IV SCH ×2 (05:51→16:33)
[2018-06-29 06:12] LABS: Absolute Lymphocytes (CBC) 1.5 K/uL (0.7-4.9); Absolute Monocytes 0.5 K/uL (0.1-1.3); Absolute Neutrophil 2.8 K/uL (1.8-8.0); Basophils % 0.9 % (0-1.3); Eosinophils % 3.3 % (0-4.4); Hematocrit 27.4 % (36.0-45.0); Lymphocytes % 29.6 % (15.3-44.8); MPV 9.2 fL (7.6-11.3); Monocytes % 10.2 % (3.3-12.3); RBC Red Blood Cell Count 3.38 M/uL (3.86-4.86)
[2018-06-29 06:22] LABS: ALT/SGPT 15 U/L (12-78); AST/SGOT 16 U/L (15-37); Albumin 2.8 g/dL (3.4-5.0); Alkaline Phosphatase 59 U/L (45-117); BUN Blood Urea Nitrogen 6 mg/dL (7-18); Bicarbonate 23 mmol/L (21-32); Bilirubin Total 0.6 mg/dL (0.2-1.0); Glucose Level 83 mg/dL (74-106); Potassium 3.8 mmol/L (3.5-5.1); Protein, Total 5.6 g/dL (6.4-8.2); Sodium Level 146 mmol/L (136-145)
[2018-06-29] MEDS: INSULIN -REGULAR HUMAN 50 UNIT/0.5 ML ML SQ SCH ×2 (07:30→11:30)
[2018-06-29] MEDS: ENOXAPARIN 80 MG/0.8 ML SQ SCH (08:57)
[2018-06-29] MEDS: PREGABALIN 150 MG CAP PO SCH ×2 (08:57→14:43)
[2018-06-29] MEDS: PANTOPRAZOLE 40 MG INJ IV SCH (08:58)
[2018-06-29] MEDS: SODIUM CHLORIDE 0.9% 10ML INJ IV SCH (08:59)
[2018-06-29] MEDS ORDERED: LISINOPRIL 10 MG TAB PO SCH (09:00)
[2018-06-29] MEDS ORDERED: POTASSIUM CL SA 10 MEQ TAB PO ONE (09:00)
[2018-06-29 15:23] VITALS: O2SAT 98
--- NOTE | 2018-06-29 17:55 | P.DS ---
Admission Date: 06/28/18 Discharge Date: 06/29/18 Disposition: DC HOME/HOME HEALTH CARE Discharge Condition: GOOD Reason for Admission: Abdominal pain Consultations: Dr. dent, gastroenterology Dr. Santamaria, general surgery Procedures: CT - Abdomen Angio - 06/24/2018 11:38 am CLINICAL HISTORY: Abdominal pain COMPARISON: CT abdomen June 24, 2018 TECHNIQUE: Computed tomography angiography of the abdomen obtained. 100 cc Isovue 370 was administered intravenously. Coronal and sagittal reconstruction were performed. MIP 3D reconstruction was performed All CT scans are performed using dose optimization technique as appropriate and may include automated exposure control or mA/KV adjustment according to patient size. FINDINGS: An aortic dissection is not seen. An aortic aneurysm is not displayed. Mild plaque within the aorta Mild narrowing of the celiac artery. Mild to moderate plaque is visualized within the celiac and SMA. Calcified plaque within the proximal ALYSSIA 3 centimeters from its origin is present. This results in a moderate stenosis. . Refer to the CT abdomen report done earlier in the day for additional findings IMPRESSION: Mild to moderate plaque within the celiac and SMA without a significant stenosis Calcified plaque within the ALYSSIA resulting in a moderate stenosis. 06/26/2017: EGD Found to have ischemic gastritis Biopsies were taken Repeat EGD in 6 weeks - Problems (1) Abdominal pain Status: Acute (2) PUD (peptic ulcer disease) Status: Suspected (3) Diabetes mellitus type II, uncontrolled Onset Date: 10/20/15 Status: Chronic Qualifiers: Glycemic state: with hyperglycemia Qualified Code(s): E11.65 - Type 2 diabetes mellitus with hyperglycemia (4) Coronary artery disease Status: Chronic Qualifiers: Coronary Disease-Associated Artery/Lesion type: unspecified vessel or lesion type [place] vs. transplanted heart: unspecified whether [place] or transplanted heart Associated angina: without angina Qualified Code(s): I25.10 - Atherosclerotic heart disease of [place] coronary artery without angina pectoris (5) GERD (gastroesophageal reflux disease) Status: Chronic Qualifiers: Esophagitis presence: esophagitis presence not specified Qualified Code(s) : K21.9 - Gastro-esophageal reflux disease without esophagitis (6) Hypertension Status: Chronic Qualifiers: Hypertension type: essential hypertension Qualified Code(s): I10 - Essential (primary) hypertension (7) Legally blind Status: Chronic (8) Dementia Status: Suspected Qualifiers: Dementia type: unspecified type Dementia behavioral disturbance: without behavioral disturbance Qualified Code(s): F03.90 - Unspecified dementia without behavioral disturbance Brief History of Present Illness: This is a 72 yr old female with multiple pmh of Abdominal pain, nausea and vomiting. Patient seen and examined at bedside, no family at bedside. Patient not a very good historian. Most of the history received from ER notes/chart review. Patient came in with acute abdominal pain with nausea/vomiting. The vomitus was brown/black, approximately a cupful. She has not been able to eat and is generally feeling poor. In the ER, CT of the abdomen positive fo rhepatic portal venous gas in 2 veins adjacent to stomach, no free air. Suspicious for PUD vs ischemia. She was hemodynamically stable. At the time of my exam, patient was in moderate distress d/t abdominal pain. Hospital Course: Abdominal pain PUD vs ischemia Ischemic gastroenteritis Patient was admitted with abdominal pain. CT scan was significant for PUD versus ischemia. CTA was done. See results above. General surgery was consulted. Gastroenterology was consulted. Patient was kept NPO, IV pain control. She was continued on IV Protonix. She underwent an EGD and was found to have ischemic disease. She was then started on Lovenox twice a day. Her symptoms improved. She was then started on a clear liquid diet and her diet was advanced to GI soft. It was recommended that she undergo repeat CTA scan in a few weeks for followup. It was also recommended to follow up with another EGD in 6 weeks. Prior to discharge, patient was tolerating a GI soft diet. She was ambulating well with physical therapy and was symptom free. She was discharged with oral Protonix and Xarelto. It was recommended that the Syn[employer] utilities continued for 6 months. She would then have repeat imaging and further decisions will be made. Patient and grandson understood and verbalized understanding. Patient was then discharged home in a stable manner. She otherwise remained stable from her other medical disease point of view. No other medication changes were made at discharge. She will follow up with the primary care physician in 2-3 days. She will follow up with Gastroenterology in 2 weeks. Vital Signs/Physical Exam: Temp Pulse Resp BP Pulse Ox 98.0 F 75 16 122/63 98 06/29/18 08:00 06/29/18 08:58 06/29/18 08:00 06/29/18 08:58 06/29/18 08:00 General: Alert, In no apparent distress, Oriented x3 HEENT: Atraumatic, Other (Legally blind) Neck: Supple, JVD not distended Respiratory: Clear to auscultation bilaterally, Normal air movement Cardiovascular: Regular rate/rhythm, Normal S1 S2 Gastrointestinal: Normal bowel sounds, No tenderness Musculoskeletal: No tenderness Integumentary: No rashes Neurological: Normal speech, Normal tone, Normal affect Lymphatics: No axilla or inguinal lymphadenopathy Laboratory Data at Discharge: WBC 4.9 K/uL (4.3-10.9) 06/29/18 05:33 Hgb 9.2 g/dL (12.0-15.0) L 06/29/18 05:33 Hct 27.4 % (36.0-45.0) L 06/29/18 05:33 Plt Count 130 K/uL (152-406) L 06/29/18 05:33 PT 12.3 SECONDS (9.5-12.5) 06/25/18 13:58 INR 1.04 06/25/18 13:58 APTT 28.6 SECONDS (24.3-36.9) 06/25/18 13:58 Sodium 146 mmol/L (136-145) H 06/29/18 05:33 Potassium 3.8 mmol/L (3.5-5.1) 06/29/18 05:33 BUN 6 mg/dL (7-18) L 06/29/18 05:33 Creatinine 0.63 mg/dL (0.55-1.3) 06/29/18 05:33 Glucose 83 mg/dL (74-106) 06/29/18 05:33 Phosphorus 2.5 mg/dL (2.5-4.9) 06/28/18 05:27 Magnesium 2.0 mg/dL (1.8-2.4) 06/27/18 05:42 Total Bilirubin 0.6 mg/dL (0.2-1.0) 06/29/18 05:33 AST 16 U/L (15-37) 06/29/18 05:33 ALT 15 U/L (12-78) 06/29/18 05:33 Alkaline Phosphatase 59 U/L (45-117) 06/29/18 05:33 Lipase 117 U/L (73-393) 06/24/18 09:10 Home Medications: Atorvastatin Calcium 20 mg PO BEDTIME 06/25/18 Cyanocobalamin (Vitamin B-12) [Vitamin B-12] 3,000 mcg PO DAILY 06/25/18 Ergocalciferol (Vitamin D2) [Vitamin D2] 50,000 unit PO SEECOM 06/25/18 Glipizide [Glipizide ER] 20 mg PO BIDAC 06/25/18 Multivits Min/Iron/FA/Herb#186 [Hair, Skin and Nails Caplet] 1 each PO DAILY Pregabalin [Lyrica] 150 mg PO TID 06/25/18 Sitagliptin Phosphate [Januvia] 25 mg PO DAILY 06/25/18 Pantoprazole [Protonix Tab] 40 mg PO DAILY #30 tab 06/29/18 Rivaroxaban [Xarelto] 20 mg PO DAILY #30 tablet 06/29/18 New Medications: Pantoprazole [Protonix Tab] 40 mg PO DAILY #30 tab Rivaroxaban [Xarelto] 20 mg PO DAILY #30 tablet Patient Discharge Instructions: Please follow up with your primary care physician in 2-3 days. Please follow up with Dr. Dent, Gastroenterology in 2 weeks. We recommend taking the blood thinner (Xarelto) for at least 6 months but please discuss with your primary care doctor for re-testing/CTA of the abdomen in 6 months. Please return to the Emergency room for worsening symptoms. Diet: GI soft Activity: Ad nancy Followup: Preston Dent MD [ASSOCIATE-ACTIVE - CAN ADMIT] - 1-2 Weeks Time spent managing pt's care (in minutes): 55
[2018-06-29 19:11] VITALS: BP 121/58; TEMP 97.4
== END 2018-06-29 17:30 | disposition home health service (06) | DRG 395 ==
LOC: ER 08:13 → INTOOBSV 11:32 → ERHOLD 11:32 → 2ND 16:01 → OBSVTOIN 06-28 12:00
PROVIDERS: ADMIT Family Medicine; ATTEND Family Medicine
PROC: 0DB78ZX Excision of Stomach, Pylorus, Via Natural or Artificial Opening Endoscopic, Diagnostic (ICD-10-PCS; 2018-06-26)
PROC: 0DB68ZX Excision of Stomach, Via Natural or Artificial Opening Endoscopic, Diagnostic (ICD-10-PCS; principal; 2018-06-26 14:45)
DX: K55.9 Vascular disorder of intestine, unspecified (principal); E11.65 Type 2 diabetes mellitus with hyperglycemia; I25.10 Atherosclerotic heart disease of native coronary artery without angina pectoris; K21.9 Gastro-esophageal reflux disease without esophagitis; I10 Essential (primary) hypertension; F03.90 Unspecified dementia, unspecified severity, without behavioral disturbance, psychotic disturbance, mood disturbance, and anxiety; H54.8 Legal blindness, as defined in USA; Z79.84 Long term (current) use of oral hypoglycemic drugs; Z79.02 Long term (current) use of antithrombotics/antiplatelets; E78.2 Mixed hyperlipidemia; E11.40 Type 2 diabetes mellitus with diabetic neuropathy, unspecified; E11.39 Type 2 diabetes mellitus with other diabetic ophthalmic complication; H40.9 Unspecified glaucoma; H42 Glaucoma in diseases classified elsewhere; Z87.891 Personal history of nicotine dependence; Z86.73 Personal history of transient ischemic attack (TIA), and cerebral infarction without residual deficits; D64.9 Anemia, unspecified; Z66 Do not resuscitate
CPT/HCPCS: 36415; 70450; 71045; 74175; 74176; 80048; 80053; 80076; 81003; 81015; 82962; 83605; 83690; 83735; 83880; 84100; 84132; 84484; 85025; 85027; 85379; 85610; 85730; 87040; 87086; 87088; 88305; 88312; 93005; 94760; 97162; 97530; 99285; C9113; J0360; J1650; J2405; J2543; J2704; J3010; J3370; J3475; J7030; Q9967

== ENCOUNTER 2018-10-01 19:59 | Inpatient (IN) | payer OTHER ==
--- OUTSIDE RECORDS SUMMARY | 2018-10-01 20:02 | XMS REPORT | Clinical Summary ---
:1945 Author Organization [facility] Address [address] [place] [address] Care Team Providers Name Role Phone Asked, [...] Last Done Comments BREAST CANCER SCREENING 12/31/1995 COLONOSCOPY SCREENING 12/31/1995 SHINGLES VACCINES (#1) 12/31/1995 65+ PNEUMOCOCCAL VACCINE (1 of 2 - PCV13) 2010 INFLUENZA VACCINE 10/29/2018 Results Not on fileafter 09/30/2017 Insurance Payer Benefit Plan / Subscriber ID Effective Dates Phone Address Type Group MEDICARE MEDICARE PART A xxxxxxxxxx 2003-Present [place] B MEDICAID MEDICAID xxxxxxxxx 2011-Present Medicaid Advance Directives Patient has advance care planning documents on file. For more information, please contact:[facility] [place] [address]
--- OUTSIDE RECORDS SUMMARY | 2018-10-01 20:02 | XMS REPORT ---
:1945 Author Organization [facility] Address [address] [place] [address] Dr. Kirby [address] [place] [id number] Care Team Providers Name Role Phone Unavailable Unavailable Unavailable Problems This patient has no known problems. Allergies, Adverse Reactions, Alerts This patient has no known allergies or adverse reactions. Medications This patient has no known medications.
[2018-10-01 21:07] LABS: Absolute Lymphocytes (CBC) 2.3 K/uL (0.7-4.9); Basophils % 1.1 % (0-1.3); Eosinophils % 2.6 % (0-4.4); Hematocrit 30.9 % (36.0-45.0); Lymphocytes % 36.8 % (15.3-44.8); MPV 9.3 fL (7.6-11.3); Monocytes % 8.6 % (3.3-12.3); Protime INR 1.19; RBC Red Blood Cell Count 3.69 M/uL (3.86-4.86)
[2018-10-01 21:23] LABS: Bilirubin Direct 0.1 mg/dL (0-0.2); Bilirubin Total 0.3 mg/dL (0.2-1.0); Magnesium 2.1 mg/dL (1.8-2.4); Potassium 3.3 mmol/L (3.5-5.1); Protein, Total 6.2 g/dL (6.4-8.2); Troponin (Emerg Dept Use Only) 0.25 ng/mL (0.0-0.045)
[2018-10-01 22:34] LABS: Urine Blood 2+ (NEG); Urine Glucose 2+ (NEG); Urine Protein 1+ (NEG); Urine Specific Gravity 1.015 (1.005-1.030)
--- NOTE | 2018-10-01 22:36 | RAD REPORT ---
EXAM DESCRIPTION: Jamal Single View10/01/2018 9:12 pm CLINICAL HISTORY: Chest pain COMPARISON: May 2018 FINDINGS: 12 millimeter opacity overlying the mid left lung is without obvious change. Right lung appears clear. The heart is normal size IMPRESSION: 12 millimeter opacity overlying the mid left lung is without obvious change it may repre sent a pulmonary nodule or confluence of ribs and vessels. Follow-up chest film in 3 months including obliques views recommended for re-evaluation
[2018-10-01 22:45] LABS: Urine Amorphous Sediment TRACE /HPF (NONE SEEN); Urine Bacteria <20 /HPF (<20); Urine Culture Reflex Order NOT NEEDED; Urine RBC 20-50 /HPF (NONE SEEN)
[2018-10-01] MEDS ORDERED: ONDANSETRON 4 MG/2 ML VIAL IV PRN (22:57)
[2018-10-01] MEDS ORDERED: MAGNESIUM HYDROXIDE 8% 30 ML PO PRN (22:57)
[2018-10-01] MEDS ORDERED: ALPRAZOLAM 0.25 MG TABLET PO PRN (22:57)
--- NOTE | 2018-10-01 23:03 | EDPHYS ---
Physician Documentation [facility] Name: Leydi Guerrier Age: 72 yrs Sex: Female : 1945 Arrival Date: 10/01/2018 Time: 20:13 Bed 23 Private MD: ED Physician Santino Kim HPI: 10/01 22:43 This 72 yrs old Female presents to ER via EMS with complaints of General gs Weakness. 22:43 The patient or guardian reports chest pain that is located primarily in the anterior gs chest wall. Onset: this morning. The pain does not radiate. Associated signs and symptoms: Pertinent negatives: shortness of breath. The chest pain is described as a heaviness. Duration: The patient or guardian reports multiple episodes, that are intermittent, that wax and wane, with no pattern. Modifying factors: The symptoms are alleviated by nothing. the symptoms are aggravated by nothing. Severity of pain: At its worst the pain was moderate in the emergency department the pain is unchanged. The patient has experienced similar episodes in the past, a few times. says pain down entire right side. Historical: - Allergies: 20:21 Morphine; ca1 - Home Meds: 20:21 Hilda Oral [Active]; atorvastatin oral oral [Active]; Bactrim DS Oral [Active]; ca1 Flagyl Oral [Active]; gabapentin oral oral [Active]; Glipizide Oral [Active]; Iron CR Oral [Active]; Januvia oral oral [Active]; Lyrica Oral [Active]; Naproxen Oral [Active]; Protonix Oral [Active]; Restasis [Active]; - PMHx: 20:21 CAD; CVA; Diabetes - IDDM; Glaucoma; High Cholesterol; Hypertension; legally blind; ca1 Colon Ca; - PSHx: 20:21 Hysterectomy; ca1 - Immunization history:: Adult Immunizations not up to date. - Social history:: Smoking status: Patient/guardian denies using tobacco. - Ebola Screening: : Patient negative for fever greater than or equal to 101.5 degrees Fahrenheit, and additional compatible Ebola Virus Disease symptoms Patient denies exposure to infectious person Patient denies travel to an Ebola-affected area in the 21 days before illness onset No symptoms or risks identified at this time. ROS: 22:43 All other systems are negative. gs Exam: 22:43 Head/Face: Normocephalic, atraumatic. Eyes: Pupils equal round and reactive to light, gs extra-ocular motions intact. Lids and lashes normal. Conjunctiva and sclera are non-icteric and not injected. Cornea within normal limits. Periorbital areas with no swelling, redness, or edema. ENT: Nares patent. No nasal discharge, no septal abnormalities noted. Tympanic membranes are normal and external auditory canals are clear. Oropharynx with no redness, swelling, or masses, exudates, or evidence of obstruction, uvula midline. Mucous membranes moist. Neck: Trachea midline, no thyromegaly or masses palpated, and no cervical lymphadenopathy. Supple, full range of motion without nuchal rigidity, or vertebral point tenderness. No Meningismus. Chest/axilla: Normal chest wall appearance and motion. Nontender with no deformity. No lesions are appreciated. Cardiovascular: Regular rate and rhythm with a normal S1 and S2. No gallops, murmurs, or rubs. Normal PMI, no JVD. No pulse deficits. Respiratory: Lungs have equal breath sounds bilaterally, clear to auscultation and percussion. No rales, rhonchi or wheezes noted. No increased work of breathing, no retractions or nasal flaring. Abdomen/GI: Soft, non-tender, with normal bowel sounds. No distension or tympany. No guarding or rebound. No evidence of tenderness throughout. Back: No spinal tenderness. No costovertebral tenderness. Full range of motion. Skin: Warm, dry with normal turgor. Normal color with no rashes, no lesions, and no evidence of cellulitis. MS/ Extremity: Pulses equal, no cyanosis. Neurovascular intact. Full, normal range of motion. Neuro: Awake and alert, GCS 15, oriented to person, place, time, and situation. Cranial nerves II-XII grossly intact. Motor strength 5/5 in all extremities. Sensory grossly intact. Cerebellar exam normal. Normal gait. 22:43 Constitutional: The patient appears alert, awake. 22:43 ECG was reviewed by the Attending Physician. Vital Signs: 20:21 BP 148 / 88; Pulse 63; Resp 15 S; Temp 98(O); Pulse Ox 98% on R/A; Weight 68.04 kg (R); ca1 Height 5 ft. 2 in. (157.48 cm) (R); Pain 8/10; 21:32 BP 113 / 53; Pulse 56; Resp 16 S; Pulse Ox 100% on R/A; ca1 22:39 BP 113 / 67; Pulse 56; Resp 15 S; Pulse Ox 99% on R/A; ca1 23:33 BP 129 / 81; Pulse 55; Resp 14 S; Pulse Ox 100% on R/A; ca1 10/02 00:06 BP 120 / 63; Pulse 55; Resp 13 S; Pulse Ox 100% on R/A; ca1 00:32 BP 122 / 74; Pulse 61; Resp 12; Temp 98(O); Pulse Ox 100% on R/A; ca1 10/01 20:21 Body Mass Index 27.44 (68.04 kg, 157.48 cm) ca1 Morven Coma Score: 10/01 20:25 Eye Response: to voice(3). Verbal Response: oriented(5). Motor Response: obeys ca1 commands(6). Total: 14. MDM: 21:32 Patient medically screened. 22:43 Differential diagnosis: acute myocardial infarction, coronary artery disease pneumonia. gs Data reviewed: vital signs, nurses notes, lab test result(s), EKG, radiologic studies. Counseling: I had a detailed discussion with the patient and/or guardian regarding: the historical points, exam findings, and any diagnostic results supporting the discharge/admit diagnosis, the need for further work-up and treatment in the hospital. 23:03 Response to treatment: the patient's symptoms have resolved after treatment, the gs patient's pain is gone. 10/01 20:26 Order name: Glucose, Ancillary Testing; Complete Time: 21:32 EDMS 10/01 20:46 Order name: Basic Metabolic Panel aa1 10/01 20:46 Order name: CBC with Diff 1 10/01 20:46 Order name: LFT's 10/01 20:46 Order name: Magnesium aa10/01 20:46 Order name: NT PRO-BNP; Complete Time: 21:32 aa1 10/01 20:46 Order name: PT-INR; Complete Time: 21:32 aa1 10/01 20:46 Order name: Troponin (emerg Dept Use Only); Complete Time: 21:32 aa1 10/01 20:47 Order name: Basic Metabolic Panel; Complete Time: 21:32 EDMS 10/01 20:47 Order name: CBC with Automated Diff; Complete Time: 21:32 [facility] 10/01 20:47 Order name: Liver (Hepatic) Function; Complete Time: 21:32 [facility] 10/01 20:47 Order name: Magnesium; Complete Time: 21:32 [facility] 10/01 20:57 Order name: Urine Microscopic Only 10/01 20:46 Order name: XRAY Chest (1 view); Complete Time: 22:41 [facility] 10/01 20:46 Order name: EKG; Complete Time: 20:48 [facility] 10/01 20:46 Order name: Cardiac monitoring; Complete Time: 20:58 [facility] 10/01 20:46 Order name: EKG - Nurse/Tech; Complete Time: 21:06 [facility] 10/01 20:46 Order name: IV Saline Lock; Complete Time: 20:58 [facility] 10/01 20:46 Order name: Labs collected and sent; Complete Time: 20:58 [facility] 10/01 20:46 Order name: O2 Per Protocol; Complete Time: 20:58 [facility] 10/01 20:46 Order name: O2 Sat Monitoring; Complete Time: 20:58 [facility] 10/01 20:46 Order name: Head Brain Wo Cont CT [facility] 10/01 20:57 Order name: Urine Dipstick-Ancillary (obtain specimen); Complete Time: 22:30 10/01 21:05 Order name: Creatine Phosphokinase; Complete Time: 21:32 [facility] 10/01 22:27 Order name: Urine Dipstick--Ancillary (enter results); Complete Time: 22:41 [facility] 10/01 23:13 Order name: CONS Physician Consult [facility] 10/01 23:13 Order name: NPO [facility] 10/01 23:13 Order name: EKG Electrocardiogram [facility] EC:43 Rate is 63 beats/min. Rhythm is regular. WV interval is normal. QRS interval is normal. QT interval is normal. T waves are Flattened. Clinical impression: NSR w/ Non-specific ST/T Changes. Interpreted by me. Administered Medications: No medications were administered Point of Care Testing: Blood Glucose: 20:21 Blood Glucose: 306 mg/dL; ca1 Ranges: Critical Glucose Levels:Adult <50 mg/dl or >400 mg/dl <40 mg/dl or >180 mg/dl Disposition: 10/01/18 23:03 Hospitalization ordered by Geneva Kennedy for Observation. Preliminary diagnosis are Chest pain, unspecified, Weakness. - Bed requested for Telemetry/MedSurg (observation). - Status is Observation. ca1 - Condition is Stable. - Problem is new. - Symptoms have improved. UTI on Admission? No Signatures: Dispatcher [employer] [facility] Ciarra Max RN RN aa1 Shoshana Talbert RN RN cg Santino Kim MD MD Acob, AIDEN Zavaleta RN ca1 Corrections: (The following items were deleted from the chart) 21:04 20:57 CREATINE PHOSPHOKINASE+C.LAB.BRZ ordered. [facility] 10/02 00:04 10/01 23:03 Hospitalization Ordered by Geneva Kennedy MD for Observation. Preliminary cg diagnosis is Chest pain, unspecified; Weakness. Bed requested for Telemetry/MedSurg (observation). Status is Observation. Condition is Stable. Problem is new. Symptoms have improved. UTI on Admission? No. 10/02 00:51 00:04 10/01/2018 23:03 Hospitalization Ordered by Geneva Kennedy MD for Observation. ca1 Preliminary diagnosis is Chest pain, unspecified; Weakness. Bed requested for Telemetry/MedSurg (observation). Status is Observation. Condition is Stable. Problem is new. Symptoms have improved. UTI on Admission? No. cg
--- NOTE | 2018-10-01 23:03 | ER ---
Nurse's Notes [facility] Name: Leydi Guerrier Age: 72 yrs Sex: Female : 1945 Arrival Date: 10/01/2018 Time: 20:13 Bed 23 Private MD: Diagnosis: Chest pain, unspecified;Weakness Presentation: 10/01 20:13 Presenting complaint: EMS states: Pt woke up feeling weak today especially on both ca1 lower extremities. Pt is blind but usually is able to walk around the house with her walker, but today feels week and was just on bed. Right now she c/o of pain on the R side of her body that she says comes and goes. Transition of care: patient was not received from another setting of care. Onset of symptoms was October 01, 2018. Risk Assessment: Do you want to hurt yourself or someone else? Patient reports no desire to harm self or others. Initial Sepsis Screen: Does the patient meet any 2 criteria? No. Patient's initial sepsis screen is negative. Does the patient have a suspected source of infection? No. Patient's initial sepsis screen is negative. Care prior to arrival: Glucose check: 305. 20:13 Method Of Arrival: EMS: [facility] ca1 20:13 Acuity: ADY 3 ca1 Triage Assessment: 20:21 General: Appears in no apparent distress. comfortable, Behavior is calm, cooperative, ca1 appropriate for age. Pain: Complains of pain in right arm and right leg Pain does not radiate. Pain currently is 8 out of 10 on a pain scale. Historical: - Allergies: 20:21 Morphine; ca1 - Home Meds: 20:21 Hilda Oral [Active]; atorvastatin oral oral [Active]; Bactrim DS Oral [Active]; ca1 Flagyl Oral [Active]; gabapentin oral oral [Active]; Glipizide Oral [Active]; Iron CR Oral [Active]; Januvia oral oral [Active]; Lyrica Oral [Active]; Naproxen Oral [Active]; Protonix Oral [Active]; Restasis [Active]; - PMHx: 20:21 CAD; CVA; Diabetes - IDDM; Glaucoma; High Cholesterol; Hypertension; legally blind; ca1 Colon Ca; - PSHx: 20:21 Hysterectomy; ca1 - Immunization history:: Adult Immunizations not up to date. - Social history:: Smoking status: Patient/guardian denies using tobacco. - Ebola Screening: : Patient negative for fever greater than or equal to 101.5 degrees Fahrenheit, and additional compatible Ebola Virus Disease symptoms Patient denies exposure to infectious person Patient denies travel to an Ebola-affected area in the 21 days before illness onset No symptoms or risks identified at this time. Screenin:24 Abuse screen: Denies threats or abuse. Denies injuries from another. Nutritional ca1 screening: No deficits noted. Tuberculosis screening: No symptoms or risk factors identified. Fall Risk Secondary diagnosis (15 points) blindness. Ambulatory Aid- Crutches/Cane/Walker (15 pts). Gait- Weak (10 pts.). Assessment: 20:26 General: Appears in no apparent distress. comfortable, Behavior is calm, cooperative, ca1 appropriate for age. General: Reports fatigue for 0-12 hours. Pain:. Neuro: Level of Consciousness is obeys commands, listless, Oriented to person, place, time, situation, Stenographic Court Reporter are equal bilaterally Moves all extremities. Speech is normal, Facial symmetry appears normal. Cardiovascular: Heart tones S1 S2 present Capillary refill < 3 seconds Patient's skin is warm and dry. Pulses are all present. Rhythm is sinus rhythm. Respiratory: Airway is patent Respiratory effort is even, unlabored, Respiratory pattern is regular, symmetrical, Breath sounds are clear bilaterally. GI: Abdomen is round non-distended, Bowel sounds present X 4 quads. Abd is soft and non tender X 4 quads. : No deficits noted. No signs and/or symptoms were reported regarding the genitourinary system. EENT: No deficits noted. No signs and/or symptoms were reported regarding the EENT system. Derm: Skin is healthy with good turgor, Skin is pink, warm \T\ dry. Musculoskeletal: Amputation of left first toe. Circulation, motion, and sensation intact. Capillary refill < 3 seconds, Range of motion: intact in all extremities. 21:07 Reassessment: Nephew arrived in pt's room. Reported that pt's caregiver was giving a ca1 bath this morning to pt and reported that pt appeared weak and at 1000 today they noticed slurring of speech but was resolved. Pt also responds but unable to open eyes. Nephew also reported that pt slept most of the day which was not normal. Pt Tonight, during her evening bath, caregiver reported pt weaker than this morning and c/o of pain on the R side of the body. This prompted nephew to call EMS. 22:11 Reassessment: Patient appears in no apparent distress at this time. No changes from ca1 previously documented assessment. Patient and/or family updated on plan of care and expected duration. Pain level reassessed. 23:33 Reassessment: Patient appears in no apparent distress at this time. No changes from ca1 previously documented assessment. Nephew still at bedside. Awaiting room assignment. 23:41 Reassessment: Nephew instructed on NPO for pt. ca1 10/02 00:06 Reassessment: Patient appears in no apparent distress at this time. No changes from ca1 previously documented assessment. Called for report. Nurse will call back. 00:32 Reassessment: Patient appears in no apparent distress at this time. No changes from ca1 previously documented assessment. Vital Signs: 10/01 20:21 BP 148 / 88; Pulse 63; Resp 15 S; Temp 98(O); Pulse Ox 98% on R/A; Weight 68.04 kg (R); ca1 Height 5 ft. 2 in. (157.48 cm) (R); Pain 8/10; 21:32 BP 113 / 53; Pulse 56; Resp 16 S; Pulse Ox 100% on R/A; ca1 22:39 BP 113 / 67; Pulse 56; Resp 15 S; Pulse Ox 99% on R/A; ca1 23:33 BP 129 / 81; Pulse 55; Resp 14 S; Pulse Ox 100% on R/A; ca1 10/02 00:06 BP 120 / 63; Pulse 55; Resp 13 S; Pulse Ox 100% on R/A; ca1 00:32 BP 122 / 74; Pulse 61; Resp 12; Temp 98(O); Pulse Ox 100% on R/A; ca1 10/01 20:21 Body Mass Index 27.44 (68.04 kg, 157.48 cm) ca1 Mukul Coma Score: 10/01 20:25 Eye Response: to voice(3). Verbal Response: oriented(5). Motor Response: obeys ca1 commands(6). Total: 14. ED Course: 20:13 Patient arrived in ED. ca1 20:16 Triage completed. ca1 20:21 Arm band placed on right wrist. ca1 20:24 Patient has correct armband on for positive identification. Bed in low position. Call ca1 light in reach. Side rails up X2. monitor technician on. Pulse ox on. NIBP on. Warm blanket given. 20:30 Meghann Colindres, AIDEN is Primary Nurse. ca1 20:47 No provider procedures requiring assistance completed. Inserted saline lock: 20 gauge ca1 in left antecubital area, using aseptic technique. Blood collected. 20:57 Santino Kim MD is Attending Physician. gs 21:11 CT completed. Patient tolerated procedure well. Patient moved to CT. Patient moved back ar from CT. 21:13 XRAY Chest (1 view) In Process Unspecified. EDMS 21:18 Head Brain Wo Cont CT In Process Unspecified. EDMS 22:36 Straight cath inserted, using sterile technique, 16 Fr. Specimen obtained. by Bailee, ED ca1 tech Returned clear yellow urine. Patient tolerated well. 23:02 Geneva Kennedy MD is Hospitalizing Provider. 10/02 00:32 Patient admitted, IV remains in place. ca1 Administered Medications: No medications were administered Point of Care Testing: Blood Glucose: 10/01 20:21 Blood Glucose: 306 mg/dL; ca1 Ranges: Output: 22:37 Urine: 500ml (Straight Cath); Total: 500ml. ca1 Outcome: 23:03 Decision to Hospitalize by Provider. 10/02 00:32 Admitted to Tele accompanied by tech, via stretcher, room 410, with chart, Report ca1 called to Madison Goddard RN Condition: stable Instructed on the need for admit, Demonstrated understanding of instructions. 00:51 Patient left the ED. ca1 Signatures: Dispatcher [employer] EDMI Jet Jones Gregory, MD MD Meghann Colindres, RN RN ca1 Corrections: (The following items were deleted from the chart) 07 20:33 20:26 Neuro: Level of Consciousness is awake, alert, obeys commands, Oriented to ca1 person, place, time, situation, ca1 21:11 20:25 GCS: 15, ca1 ca1 23:36 20:26 Cardiovascular: Heart tones S1 S2 present Capillary refill < 3 seconds Patient's ca1 skin is warm and dry. Pulses are all present. ca1
[2018-10-02] MEDS: NA CHLORIDE 0.9% 1,000 ML IV SCH ×3 (01:47→14:06)
[2018-10-02 02:39] VITALS: BMI 30.3
[2018-10-02] MEDS: KCL 20 MEQ/100 mL IVPB 20 MEQ/100 ML BAG IV SCH ×2 (02:46→04:57)
[2018-10-02] MEDS: FENTANYL CITR 100 MCG/2 ML IV PRN ×3 (04:02→22:53)
[2018-10-02 06:45] LABS: Absolute Lymphocytes (CBC) 2.3 K/uL (0.7-4.9); Basophils % 1.7 % (0-1.3); Hematocrit 29.5 % (36.0-45.0); MPV 9.4 fL (7.6-11.3); Monocytes % 7.5 % (3.3-12.3); RBC Red Blood Cell Count 3.57 M/uL (3.86-4.86)
[2018-10-02 06:57] LABS: Albumin 2.9 g/dL (3.4-5.0); Bilirubin Total 0.4 mg/dL (0.2-1.0); Magnesium 1.9 mg/dL (1.8-2.4); Phosphorus 4.6 mg/dL (2.5-4.9); Troponin I 0.22 ng/mL (0.0-0.045)
[2018-10-02] MEDS: ENOXAPARIN 40 MG/0.4 ML SQ SCH (07:51)
[2018-10-02] MEDS ORDERED: PNEUMOCOCCAL VACCINE 0.5 ML IMVAC ONE (08:00)
--- NOTE | 2018-10-02 08:17 | P.HP ---
Date of Service: 10/01/18 [id number]
[2018-10-02] MEDS ORDERED: D50W 25 GM/50 ML SYRINGE IV PRN (08:45)
[2018-10-02] MEDS ORDERED: GLUCAGON 1 MG/VIAL IM PRN (08:45)
--- NOTE | 2018-10-02 08:53 | EKG ---
Test Date: 2018-10-01 Test Time: 21:04:23 Windows Phone Developer: ZHOU MEASUREMENT RESULTS: Intervals: Rate: 63 OH: 186 QRSD: 98 QT: 398 QTc: 407 Teller: P: 6 OH: 186 QRS: -44 T: 2 INTERPRETIVE STATEMENTS: Normal sinus rhythm with sinus arrhythmia Left axis deviation Abnormal ECG Compared to ECG 06/24/2018 09:28:30 No significant changes Electronically Signed On 10-02-18 08:52:35 CDT by Alexis Sam
--- NOTE | 2018-10-02 09:17 | HP ---
Date of Admission: 10/01/2018 Reason For Admission: 1.Chest pain, rule out acute coronary syndrome. 2.Generalized weakness with myalgia. History Of Present Illness: This is a 72-year-old female with a history of glaucoma and she is blind and unable to see either eye who presented to the emergency room with multiple complaints. In the e mergency room, her initial complaint was that she was feeling weak and having pain all over. She was not really getting out of bed. Even though she is blind, she does get around her house fairly well. She stated that she was having some chest pain and discomfort. Her pain was mainly in the anterior chest wall and she also had associated shortness of breath. The patient is with a family member at this time. Otherwise, the patient also with complaints of pain on the right side of her body. We wi ll admit her to the hospital for further evaluation. Review of Systems: A 10-point review of systems is otherwise difficult to obtain. The patient is not the best historian and she just has a lot of vague and general complaints. Most of the complaints are as mentioned abo ve. Past Medical History: Neuropathy, coronary artery disease, type 2 diabetes, glaucoma, dyslipidemia, obesity, urinary tract infection, peripheral vascular disease. Past Surgical History: Amputation of the left great toe, coronary artery stent placement, appendecto my, excision of boil of the lower back, hysterectomy, bilateral cataract surgery, cholecystectomy. Allergies: MORPHINE. Medications: Home medications have been reviewed and are in the chart. Family History: Positive for diabetes and hypertension. Social History: The patient does not smoke or drink or do any drugs. Physical Examination: Vital Signs: Initial vitals reveal temp of 98, heart rate 62, respiration 16, blood pressure 130/60, saturating 99%. Her pain is 7/10. General: The patient is lying in bed, comfortable, no distress. Awake, alert, and oriented to perso n, place, and time. She follows me mainly with my voice, but kind of stares past me a lot because e is not really able to see well. HEENT: Within normal limits. Cardiovascular: Regular rate and rhythm. No murmur. Lungs: Clear bilaterally. Abdomen: Soft, nontender, nondistended. Bowel sounds positive. Extremities: No clubbing, no cyanosis, no edema. She does have the left great toe amputation. Skin: No deformities noted. Laboratory Data: Reviewed. Assessment: 1.The patient with chest pain. Rule out acute coronary syndrome. 2.The patient with generalized myalgia with right side greater than left. 3.The patient with generalized weakness. 4.The patient with history of glaucoma and blindness. 5.The patient with history of diabetes. 6.The patient with history of dyslipidemia. 7.The patient with morbid obesity. 8.The patient with coronary artery disease. Plan: 1.At this time is to do serial troponins and EKG. 2.The patient will get Cardiology consultation. 3.We will get an echocardiogram and possibly may need a stress test pending Cardiology evaluation. 4.The patient will need strict blood pressure and blood sugar control. 5.Lipid profile in the morning. 6.Physical therapy evaluation if she is not ambulating better. She normally gets around with a walker. 7.GI and DVT prophylaxis. LENA Voice ID: [id number]
--- NOTE | 2018-10-02 09:20 | RAD REPORT ---
EXAM DESCRIPTION: CT - Head Brain Wo Cont - 10/02/2018 12:07 am CLINICAL HISTORY: Weakness. COMPARISON: None. TECHNIQUE: CT scan of the brain without IV contrast. This exam was performed according to our depa rtmental dose-optimization program, which includes automated exposure control, adjustment of the mA a nd/or kV according to patient size and/or use of iterative reconstruction technique. FINDINGS: Diffuse involutional changes are present. There are scattered areas of hypoattenuation wit hin the periventricular white matter, which likely represent chronic microvascular ischemia. No evide nce of acute infarction, intracranial hemorrhage, extra-axial fluid collection, or midline shift. No air-fluid levels are seen in the paranasal sinuses to suggest acute sinusitis. No depressed skull fra cture. IMPRESSION: 1. No acute intracranial findings. 2. Senescent changes with chronic microvascular ischemia. Electronically signed by: Sabas Cheatham MD 10/01/2018 9:46 PM CDT Due to temporary technical issues with the PACS/Fluency reporting system, reports are being signed by the in house radiologist as a courtesy to ensure prompt reporting. The interpreting radiologist is f ully responsible for the content of the report.
[2018-10-02] MEDS: ACETAMINOPHEN 500 MG TAB PO PRN (10:39)
[2018-10-02] MEDS: INSULIN -REGULAR HUMAN 50 UNIT/0.5 ML ML SQ SCH ×3 (11:30→20:02)
--- NOTE | 2018-10-02 14:12 | CON ---
Date of Consultation: 10/02/2018 Reason For Consultation: Abnormal troponin. History Of Present Illness: Ms. Guerrier is a 72-year-old woman. She has a history of diabetes, ne uropathy, hypertension, dyslipidemia, gastroesophageal reflux disease, coronary artery disease, CVA, and atrial fibrillation. She is legally blind. She came in with rather nonspecific complaint, but h er main complaint is weakness and the body aches overall, her chest, her back, her legs, her arms. D enied any fever or chills. She was found to have a hemoglobin of 9.8, glucose of 134. Her BNP was 1 460 and her troponin was 0.22. She has had a normal heart catheterization in 2014. Allergies: MORPHINE. Review of Systems: Negative. Social History: Negative. Family History: Noncontributory. Medications: Include Protonix, Lyrica, Xarelto, Lipitor, Januvia, Neurontin, and glipizide. Physical Examination: General: Ms. Guerrier is legally blind. Vital Signs: Stable. She was afebrile. She was in a sinus rhythm. HEENT: Negative. Neck: Supple with no bruit. Chest: Clear. Cardiac: Revealed a regular rhythm and rate. No murmurs, gallops, or rubs. Abdomen: Benign. Extremities: Revealed no clubbing, cyanosis, or edema. Diagnostic Data: Listed earlier. Impression And Plan: Nonspecific symptoms with diabetes, hypertension, dyslipidemia, and elevated tr oponin. I think Ms. Guerrier deserves another heart catheterization. I think we need to hold her X arelto for now. We will plan to do a heart catheterization sometimes early next week, either inpatie nt or outpatient depends on how she progresses. Her other problems include diabetes, hypertension, d yslipidemia that are well controlled. She has neuropathy that is well controlled, gastroesophageal r eflux disease that is well controlled. She has had a history of cerebrovascular accident and she is legally blind. I will discuss the case further with Dr. Kennedy. There is an echocardiogram pending. Again, I think her Xarelto needs to be held and we will decide on the catheterization later. VASQUEZ/KEVIN Voice ID: [id number] Report ID: [id number]
--- NOTE | 2018-10-02 16:44 | EKG ---
Test Date: 2018-10-02 Test Time: 08:17:08 Supervisor [employer]: OFE MEASUREMENT RESULTS: Intervals: Rate: 59 MT: 174 QRSD: 92 QT: 422 QTc: 417 [place]: P: 62 MT: 174 QRS: -29 T: 30 INTERPRETIVE STATEMENTS: Sinus bradycardia Cannot rule out Anterior infarct, age undetermined Abnormal ECG Compared to ECG 10/01/2018 21:04:23 Myocardial infarct finding now present Sinus rhythm no longer present Sinus arrhythmia no longer present Left-axis deviation no longer present Electronically Signed On 10-02-18 16:41:56 CDT by Alexis Sam
[2018-10-02] MEDS: JUVEN PACKET PO SCH (19:59)
[2018-10-03] MEDS: NA CHLORIDE 0.9% 1,000 ML IV SCH ×2 (01:15→03:45)
[2018-10-03] MEDS: FENTANYL CITR 100 MCG/2 ML IV PRN ×3 (04:24→16:06)
[2018-10-03] MEDS: INSULIN -REGULAR HUMAN 50 UNIT/0.5 ML ML SQ SCH ×4 (07:30→21:00)
[2018-10-03] MEDS: JUVEN PACKET PO SCH ×2 (08:10→21:59)
[2018-10-03] MEDS: ENOXAPARIN 40 MG/0.4 ML SQ SCH (08:11)
[2018-10-03] MEDS: GABAPENTIN 100 MG CAP PO SCH ×2 (09:00→21:59)
[2018-10-03] MEDS: PREGABALIN 150 MG CAP PO SCH ×2 (09:00→21:56)
[2018-10-03] MEDS: MULTIVIT MIN PO SCH (09:00)
[2018-10-03] MEDS: FOLIC PO SCH (09:00)
[2018-10-03] MEDS: [UNRECOGNIZED DRUG - OTHER] PO SCH (09:00)
[2018-10-03] MEDS ORDERED: HOME MED 1 EA UNK (Cyclosporine [Restasis] 1 DROP) EACH EYE SCH (09:00)
[2018-10-03] MEDS: IRON PO SCH (09:00)
[2018-10-03] MEDS: SITAGLIPTIN PHOSPHATE 25 MG PO SCH (09:00)
--- NOTE | 2018-10-03 10:16 | P.PN ---
Subjective Date of Service: 10/03/18 (Hospitalist) Chief Complaint: Generalize weakness Patient is a very poor historian appears to be in moderate distress son at the breath complaining of feeling weak all over very nonspecific symptoms not feeling well for the past 3 or 4 days prior to that patient was ambulating blind Review of Systems General: Weakness Cardiovascular: Chest Pain Physical Examination - Vital Signs Temperature: 97.3 F Blood Pressure: 127/63 Pulse: 67 Respirations: 20 Pulse Ox (%): 99 - Physical Exam General: Alert, Oriented x3, Mild distress Cardiovascular: No edema, Normal pulses Gastrointestinal: Normal bowel sounds, Soft and benign Assessment & Plan - Problems (Diagnosis) (1) Chest pain Onset Date: 05/23/14 Current Visit: No Status: Acute Plan: Patient is 72 years of age admitted with general weakness chest pain patient has an abnormal EKG pending cardiology Consul labs reviewed BNP elevated she has had a cardiac catheterization in 2015 minimal coronary artery disease patient's troponin is elevated Qualifiers: Chest pain type: unspecified Qualified Code(s): R07.9 - Chest pain, unspecified
[2018-10-03] MEDS: PANTOPRAZOLE 40MG TABLET PO SCH (10:18)
--- NOTE | 2018-10-03 10:19 | P.PN ---
Subjective Date of Service: 10/03/18 (Hospitalist) Chief Complaint: Generalize weakness No change patient is a poor historian appears to be in distress complaining of feeling weak chest pains Review of Systems General: Weakness Cardiovascular: Chest Pain Physical Examination - Vital Signs Temperature: 97.3 F Blood Pressure: 127/63 Pulse: 67 Respirations: 20 Pulse Ox (%): 99 - Physical Exam General: Alert, Moderate distress Neck: Supple Respiratory: Clear to auscultation bilaterally Cardiovascular: No edema, Regular rate/rhythm Assessment & Plan - Problems (Diagnosis) (1) Chest pain Onset Date: 05/23/14 Current Visit: No Status: Acute Plan: Patient admitted with generalized weakness chest pains abnormal EKG opponents have been elevated in the also elevated will repeat some labs today otherwise chemistries yesterday were unremarkable normal no culture sent blood pressure stable so well to is on hold cardiac catheterization this week ambulate Qualifiers: Chest pain type: unspecified Qualified Code(s): R07.9 - Chest pain, unspecified
[2018-10-03] MEDS: GLIPIZIDE S.A. 5 MG TAB PO SCH (16:01)
[2018-10-03] MEDS: ATORVASTATIN 20 MG TAB PO SCH (21:55)
[2018-10-04] MEDS: INSULIN -REGULAR HUMAN 50 UNIT/0.5 ML ML SQ SCH ×4 (07:30→22:07)
[2018-10-04] MEDS: GLIPIZIDE S.A. 5 MG TAB PO SCH ×2 (07:30→16:50)
[2018-10-04] MEDS: ENOXAPARIN 40 MG/0.4 ML SQ SCH (08:39)
[2018-10-04] MEDS: PANTOPRAZOLE 40MG TABLET PO SCH (08:39)
[2018-10-04] MEDS: GABAPENTIN 100 MG CAP PO SCH ×2 (08:39→20:53)
[2018-10-04] MEDS: IRON PO SCH (08:40)
[2018-10-04] MEDS: SITAGLIPTIN PHOSPHATE 25 MG PO SCH (08:40)
[2018-10-04] MEDS: JUVEN PACKET PO SCH ×3 (08:40→21:00)
[2018-10-04] MEDS: FOLIC PO SCH (08:40)
[2018-10-04] MEDS: [UNRECOGNIZED DRUG - OTHER] PO SCH (08:40)
[2018-10-04] MEDS: MULTIVIT MIN PO SCH (08:40)
[2018-10-04] MEDS: ACETAMINOPHEN 500 MG TAB PO PRN ×2 (08:44→16:49)
[2018-10-04] MEDS: PREGABALIN 150 MG CAP PO SCH ×2 (08:44→20:53)
--- NOTE | 2018-10-04 10:48 | P.PN ---
Subjective Date of Service: 10/04/18 Chief Complaint: Generalize weakness No change still complaining of weakness hemodynamically stable Review of Systems General: Weakness Physical Examination - Vital Signs Temperature: 98.4 F Blood Pressure: 118/56 Pulse: 60 Respirations: 16 Pulse Ox (%): 94 - Physical Exam General: Alert, Cooperative HEENT: Atraumatic Neck: Supple Respiratory: Clear to auscultation bilaterally, Normal air movement Cardiovascular: No edema, Regular rate/rhythm Assessment & Plan - Problems (Diagnosis) (1) Chest pain Onset Date: 05/23/14 Current Visit: No Status: Acute Plan: Patient complains of generalized weakness some chest discomfort vital signs stable plan to ambulate and possible discharge discuss with cardiology follow up as an outpatient in a week and do and discussed about doing a stress test patient is mildly anemic cultures all negative oxygenation normal Qualifiers: Chest pain type: unspecified Qualified Code(s): R07.9 - Chest pain, unspecified
--- NOTE | 2018-10-04 15:45 | PN ---
Date of Progress Note: 10/03/2018 Subjective: Ms. Guerrier has been in the hospital for about 48 hours. Came in with multiple compla ints and nonspecific body aches from head to toe. Had a positive troponin. She continues to have hira dy aches mostly in the arms and legs and back. Denied any chest pain today. Denies any shortness of breath today. Denies any nausea, vomiting, or diaphoresis. She has a pretty good appetite, remaine d in sinus rhythm. We will continue observation for now. No change in medical therapy. I had consi dered a heart catheterization on her, but with her symptoms being so nonspecific, I am kind of hesita nt at this point. We will see how she does by tomorrow and make further decisions. VASQUEZ/KEVIN Voice ID: [id number] Report ID: [id number]
--- NOTE | 2018-10-04 15:57 | PN ---
Date of Progress Note: 10/04/2018 Subjective: Ms. Guerrier today is feeling much better. She denies any chest pain, shortness of nitza ath, PND, orthopnea, or pedal edema. She is in sinus rhythm. She is afebrile. Her troponin have de creased from admission. Continues to have some aches in the back and lower legs. The patient is leg ally blind. Case was discussed with Dr. Dillon. I think considering how nonspecific her symptoms a re and the fact that her EKG was unremarkable and her chest x-ray was unremarkable, I think I am dk g to hold on the catheterization for now. I would have her come to the office next week or after and have her do a stress test and see if that shows any coronary ischemia prior to pursuing invasive car diac workup on her. She can go home today as far as I am concerned. MERYL Voice ID: [id number] Report ID: [id number]
[2018-10-04] MEDS: ATORVASTATIN 20 MG TAB PO SCH (20:53)
[2018-10-05] MEDS: INSULIN -REGULAR HUMAN 50 UNIT/0.5 ML ML SQ SCH ×2 (07:30→11:51)
[2018-10-05] MEDS: PREGABALIN 150 MG CAP PO SCH (09:00)
[2018-10-05] MEDS: IRON PO SCH (09:00)
[2018-10-05] MEDS: MULTIVIT MIN PO SCH (09:00)
[2018-10-05] MEDS: FOLIC PO SCH (09:00)
[2018-10-05] MEDS: [UNRECOGNIZED DRUG - OTHER] PO SCH (09:00)
[2018-10-05] MEDS: SITAGLIPTIN PHOSPHATE 25 MG PO SCH (09:00)
[2018-10-05] MEDS: GLIPIZIDE S.A. 5 MG TAB PO SCH (09:16)
[2018-10-05] MEDS: GABAPENTIN 100 MG CAP PO SCH (09:17)
[2018-10-05] MEDS: ENOXAPARIN 40 MG/0.4 ML SQ SCH (09:17)
[2018-10-05] MEDS: PANTOPRAZOLE 40MG TABLET PO SCH (09:17)
[2018-10-05] MEDS: JUVEN PACKET PO SCH (09:18)
[2018-10-05 11:53] VITALS: O2SAT 99
[2018-10-05 12:37] VITALS: BP 132/49; TEMP 98.4
--- NOTE | 2018-10-05 12:54 | ECHO ---
HEIGHT: 5 ft 2 in WEIGHT: 166 lb 0 oz DATE OF STUDY: 10/02/[address]: 2-DIMENSIONAL: YES M.MODE: YES DOPPLER: YES COLOR FLOW: YES TDS: YES PORTABLE: NO DEFINITY: NO BUBBLE STUDY: NO DIAGNOSIS: CHEST PAIN CARDIAC HISTORY: CATHERIZATION: NO SURGERY: NO PROSTHETIC VALVE: NO PACEMAKER: NO MEASUREMENTS (cm) DIASTOLIC (NORMALS) SYSTOLIC (NORMALS) IVSd 1.1 (0.6-1.2) LA Diam 3.5 (1.9-4.0) LVEF 54% LVIDd 3.1 (3.5-5.7) LVIDs 2.2 (2.0-3.5) %FS 27% LVPWd 0.9 (0.6-1.2) Ao Diam 2.6 (2.0-3.7) 2 DIMENSIONAL ASSESSMENT: RIGHT ATRIUM: NORMAL LEFT ATRIUM: NORMAL RIGHT VENTRICLE: NORMAL LEFT VENTRICLE: NORMAL TRICUSPID VALVE: NORMAL MITRAL VALVE: NORMAL PULMONIC VALVE: NORMAL AORTIC VALVE: SCLEROSIS PERICARDIAL EFFUSION: NONE AORTIC ROOT: NORMAL LEFT VENTRICULAR WALL MOTION: NORMAL DOPPLER/COLOR FLOW: NORMAL COMMENTS: NORMAL LEFT VENTRICULAR SIZE AND FUNCTION. NO WALL MOTION ABNORMALITY. AORTIC SCLEROSIS WITH NO STENOSIS. TECHNOLOGIST: Pippa VALENCIA
--- NOTE | 2018-10-06 01:30 | DS ---
Date of Discharge: 10/05/2018 Consultants: Dr. Sam with Cardiology. Admitting Diagnoses: 1.Chest pain, rule out ACS. 2.Generalized myalgia. 3.Generalized weakness. 4.History of glaucoma and blindness. 5.History of diabetes. 6.History of dyslipidemia. 7.Morbid obesity. 8.Coronary artery disease, [place] artery, [place] heart without angina. Discharge Diagnoses: 1.Chest pain, ACS ruled out. 2.Generalized myalgia, improved. 3.Generalized weakness, resolving, able to ambulate. 4.History of glaucoma and blindness. 5.History of diabetes mellitus type 2, [id number], with hyperglycemia. 6.Mixed hyperlipidemia, stable. 7.Morbid obesity. 8.Coronary artery disease, [place] artery, [place] heart, without angina. 9.Peripheral vascular disease. Hospital Course: The patient is a 72-year-old female with history of glaucoma, legally blind, comes in with multiple complaints including feeling weak, pain all over, as well as anterior chest wall kimmy n associated with shortness of breath. The patient was admitted to the hospital for chest pain to ru le out ACS. Cardiac enzymes were positive, showing troponin 0.25, 0.22, 0.14. The patient also had some electrolyte abnormalities, which were corrected. The patient was seen by Cardiology, Dr. Nano barron. Echocardiogram was done, which showed EF of 54%. No wall motion abnormality. Dr. Sam did no t feel that the patient required any intervention at this time due to her nonspecific complaints. Th e patient was then recommended to have outpatient stress test before determining need for catheteriza tion. The patient was feeling better, was able to ambulate. Her symptoms had improved. She was the n cleared for discharge from Cardiology standpoint and was then sent home in a stable condition. The patient also has anemia, normocytic hypochromic, likely anemia of chronic disease. The patient will need to have outpatient followup for her anemia, likely related to her diabetes and other comorbid c onditions. She will need to have colonoscopy if not done in the past to rule out source of malignanc y. The patient was then cleared for discharge, sent home in a stable condition. She was ambulating well with physical therapy. She does have caregivers and family at home. Medications: As per medication reconciliation list. Followup: Follow up with primary care physician in 2-3 days. Follow up with Dr. Sam in 1 week t o have stress test scheduled. Return to ER for worsening condition. Diet: Heart-healthy diet, diabetic diet. Activity: Fall precautions. Physical Examination: General: Awake, alert, oriented x3. Elderly female, obese. CV: S1, S2. No murmurs. Respiratory: Moving air well bilaterally. Abdomen: Soft, nontender, nondistended. Positive bowel sounds. Extremities: No clubbing, cyanosis, or edema. Neurologic: Nonfocal. Code Status: Full. Total time spent discharging the patient was 35 minutes. /KEVIN Voice ID: [id number] Report ID: [id number]
== END 2018-10-05 15:01 | disposition home or self-care (01) | DRG 313 ==
LOC: ER 19:59 → ERHOLD 23:32 → 4TH 10-02 00:35
PROVIDERS: ADMIT Internal Medicine Sleep Medicine; ATTEND Family Medicine
DX: R07.9 Chest pain, unspecified (principal); M79.18 Myalgia, other site; R53.1 Weakness; I48.91 Unspecified atrial fibrillation; E78.2 Mixed hyperlipidemia; E66.01 Morbid (severe) obesity due to excess calories; I25.10 Atherosclerotic heart disease of native coronary artery without angina pectoris; E11.39 Type 2 diabetes mellitus with other diabetic ophthalmic complication; H42 Glaucoma in diseases classified elsewhere; H54.8 Legal blindness, as defined in USA; E11.65 Type 2 diabetes mellitus with hyperglycemia; E11.40 Type 2 diabetes mellitus with diabetic neuropathy, unspecified; E11.51 Type 2 diabetes mellitus with diabetic peripheral angiopathy without gangrene; D63.8 Anemia in other chronic diseases classified elsewhere; K21.9 Gastro-esophageal reflux disease without esophagitis; Z68.30 Body mass index [BMI] 30.0-30.9, adult; Z79.01 Long term (current) use of anticoagulants; Z95.5 Presence of coronary angioplasty implant and graft; Z86.73 Personal history of transient ischemic attack (TIA), and cerebral infarction without residual deficits; Z89.412 Acquired absence of left great toe; Z88.5 Allergy status to narcotic agent
CPT/HCPCS: 36415; 51702; 70450; 71045; 80048; 80053; 80061; 80076; 81003; 81015; 82550; 82962; 83605; 83735; 83880; 84100; 84484; 85025; 85610; 92610; 93005; 93306; 97116; 97162; 97530; 99285; J1650; J2405; J3010; J7030

== ENCOUNTER 2018-10-20 07:18 | Day surgery (SDC) | payer OTHER ==
[2018-10-19 17:30] LABS: Absolute Lymphocytes (CBC) 1.9 K/uL (0.7-4.9); Basophils % 1.6 % (0-1.3); Hematocrit 33.3 % (36.0-45.0); Lymphocytes % 31.6 % (15.3-44.8); MPV 9.4 fL (7.6-11.3); RBC Red Blood Cell Count 4.01 M/uL (3.86-4.86)
[2018-10-19 17:33] LABS: Protime INR 1.04
[2018-10-19 17:39] LABS: Potassium 3.9 mmol/L (3.5-5.1)
--- OUTSIDE RECORDS SUMMARY | 2018-10-20 07:21 | XMS REPORT ---
:1945 [facility] Address [address] [place] [address] Dr. Kirby [address] [place] [id number] Care Team Providers Name Role Phone Unavailable Unavailable Unavailable Problems This patient has no known problems. Allergies, Adverse Reactions, Alerts This patient has no known allergies or adverse reactions. Medications This patient has no known medications.
--- OUTSIDE RECORDS SUMMARY | 2018-10-20 07:21 | XMS REPORT | Clinical Summary ---
:1945 Author Organization [facility] Address [address] [place] [address] Care Team Providers Name Role Phone Asked, [...] INFLUENZA VACCINE 10/29/2018 Results Not on fileafter 10/19/2017 Insurance Payer Benefit Plan / Subscriber ID Effective Dates Phone Address Type Group MEDICARE MEDICARE PART A xxxxxxxxxx 2003-Present [place], [place] Medicare AND B MEDICAID MEDICAID xxxxxxxxx 2011-Present Medicaid Advance Directives Patient has advance care planning documents on file. For more information, please contact:[facility] [place] [address]
[2018-10-20] MEDS ORDERED: NA CHLORIDE 0.9% 500 ML ONE (08:03)
[2018-10-20] MEDS ORDERED: MIDAZOLAM HCL 2 MG/2 ML INJ ONE (09:03)
[2018-10-20] MEDS ORDERED: HEPA 1000U/500MLS 1,000 UNIT/500 ML BAG IV ONE (09:03)
[2018-10-20] MEDS ORDERED: ATROPINE SULF 1 MG/10 ML SYR IV ONE (09:04)
[2018-10-20] MEDS ORDERED: FENTANYL CITR 100 MCG/2 ML ONE (09:04)
[2018-10-20] MEDS ORDERED: NA CHLORIDE 0.9% 0 ML ONE (09:04)
--- NOTE | 2018-10-20 10:22 | OP ---
Date of Procedure: 10/20/2018 Surgeon: Alexis Sam MD [employer] Supervisor: Virgie Siddiqi. Procedures: Left heart catheterization, selective coronary arteriogram, angiography of the right com mon femoral artery. Indication: Recent non-ST elevation myocardial infarction and history of coronary artery disease. History Of Present Illness: Ms. Guerrier is 72, has diabetes, history of atrial fibrillation, on Xa relto that has been held for 48 hours. She has hypertension, dyslipidemia. Came in with non-ST elev ation myocardial infarction to the hospital approximately a week ago, was treated medically, brought into the laboratory immunologist today for an outpatient catheterization. She had 2 mg of Versed and some fentanyl for sedation. A 6-[place] sheath introduced in the right common femoral artery. Angiography there in the right common femoral artery area showed what appears to be stents that were patent. Coronary an giography with Meet catheter revealed dual ostium for the left main, for the LAD and circumflex. She had 100% RCA occlusion was nondominant. She had about 50% circumflex stenosis after the first ob tuse marginal. She was very left dominant. The LAD was diffusely diseased, small all the way throug hout from the ostium, all the way to the distal LAD with no focal stenosis. 6-[place] catheters were used. No complications. Blood loss 5 cc. Pressure holding was used to obtain hemostasis in the rig ht common femoral artery because of the presence of what appears to be stents there. Postoperative Diagnosis: Severe coronary artery disease. Plan: Plan is for medical therapy. Anesthesia: Total conscious sedation was 30 minutes. VASQUEZ/KEVIN Voice ID: [id number] Report ID: [id number]
[2018-10-20 10:31] VITALS: TEMP 97.2
--- NOTE | 2018-10-20 10:40 | EKG ---
Test Date: 2018-10-19 Test Time: 16:28:50 Barn Operator: WILLIAM MEASUREMENT RESULTS: Intervals: Rate: 68 TX: 148 QRSD: 112 QT: 398 QTc: 423 [place]: P: 20 TX: 148 QRS: -47 T: 38 INTERPRETIVE STATEMENTS: Normal sinus rhythm Incomplete right bundle branch block Left anterior fascicular block Abnormal ECG Compared to ECG 10/02/2018 08:17:08 Incomplete right bundle-branch block now present Left anterior fascicular block now present Sinus bradycardia no longer present Myocardial infarct finding no longer present Electronically Signed On 10-20-18 10:38:26 CDT by Alexis Sam
[2018-10-20 12:10] VITALS: O2SAT 100
[2018-10-20 15:20] VITALS: BP 157/74
== END 2018-10-20 15:22 | disposition home or self-care (01) ==
LOC: CCL 07:18
DX: I25.10 Atherosclerotic heart disease of native coronary artery without angina pectoris (principal); I21.4 Non-ST elevation (NSTEMI) myocardial infarction; I48.91 Unspecified atrial fibrillation; I10 Essential (primary) hypertension; I45.2 Bifascicular block; I44.4 Left anterior fascicular block; R94.31 Abnormal electrocardiogram [ECG] [EKG]; E11.42 Type 2 diabetes mellitus with diabetic polyneuropathy; E78.5 Hyperlipidemia, unspecified; Z79.01 Long term (current) use of anticoagulants; Z79.4 Long term (current) use of insulin; Z79.899 Other long term (current) drug therapy; Z79.84 Long term (current) use of oral hypoglycemic drugs; K21.9 Gastro-esophageal reflux disease without esophagitis
CPT/HCPCS: 93005; 85025; 80048; 36415; 85610; 82962 ×2; 85730; 93454; C1893; J2250; J3010; J0583

== ENCOUNTER 2019-01-24 16:19 | Emergency (ER) | payer OTHER ==
[2019-01-24] MEDS ORDERED: FENTANYL CITR 100 MCG/2 ML ONE ×2 (17:07→19:12)
[2019-01-24 17:29] LABS: Absolute Lymphocytes (CBC) 1.3 K/uL (0.7-4.9); Basophils % 1.2 % (0-1.3); Hematocrit 30.6 % (36.0-45.0); Lymphocytes % 19.4 % (15.3-44.8); MPV 9.6 fL (7.6-11.3); RBC Red Blood Cell Count 3.63 M/uL (3.86-4.86)
--- NOTE | 2019-01-24 17:33 | RAD REPORT ---
EXAM DESCRIPTION: RAD - Chest Single View - 01/24/2019 5:23 pm CLINICAL HISTORY: DISSECTION Chest pain. COMPARISON: Chest Single View dated 10/01/2018; Chest Single View dated 06/24/2018; Chest Single View d ated 08/31/2017; Chest Single View dated 04/19/2017 FINDINGS: Portable technique limits examination quality. The lungs are emphysematous but grossly clear. The heart is normal in size. No displaced fractures. IMPRESSION: Mild COPD.
[2019-01-24 17:35] LABS: Protime INR 1.07
[2019-01-24 17:49] LABS: ALT/SGPT 12 U/L (12-78); AST/SGOT 13 U/L (15-37); Albumin 3.4 g/dL (3.4-5.0); Alkaline Phosphatase 86 U/L (45-117); BUN Blood Urea Nitrogen 14 mg/dL (7-18); Bicarbonate 28 mmol/L (21-32); Bilirubin Direct 0.2 mg/dL (0-0.2); Bilirubin Total 0.4 mg/dL (0.2-1.0); Glucose Level 219 mg/dL (74-106); Magnesium 1.9 mg/dL (1.8-2.4); NT PRO-BNP 145 pg/mL (<125); Potassium 3.6 mmol/L (3.5-5.1); Sodium Level 142 mmol/L (136-145); Troponin (Emerg Dept Use Only) < 0.02 ng/mL (0.0-0.045)
--- NOTE | 2019-01-24 18:08 | RAD REPORT ---
EXAM DESCRIPTION: US - Extrem Venous W Compress [place] - 01/24/2019 6:03 pm CLINICAL HISTORY: PAIN Bilateral leg edema and swelling. COMPARISON: EXT VENOUS W COMPRESSION VILLA dated 04/04/2013 TECHNIQUE: Real-time sonographic interrogation of the left and right lower extremity deep venous sys tems was performed. FINDINGS: Normal compressibility, flow augmentation, phasic flow and spontaneous flow is identified in both the left and right lower extremity deep venous systems. IMPRESSION: No sonographic evidence of left or right lower extremity deep venous thrombosis.
--- NOTE | 2019-01-24 18:33 | RAD REPORT ---
EXAM DESCRIPTION: CT - Head Brain Wo Cont - 01/24/2019 6:22 pm CLINICAL HISTORY: DIZZINESS Headache, drowsiness COMPARISON: Head Brain Wo Cont dated 10/01/2018; Head Brain Wo Cont dated 06/24/2018 TECHNIQUE: All CT scans are performed using dose optimization technique as appropriate and may inclu de automated exposure control or mA/KV adjustment according to patient size. FINDINGS: No intracranial hemorrhage, hydrocephalus or extra-axial fluid collection.Mild generalized brain atrophy is present with mild periventricular and deep white matter chronic microvascular ische conor changes.No areas of brain edema or evidence of midline shift. The paranasal sinuses are clear. The calvarium is intact. Vertebral atherosclerosis. IMPRESSION: No acute intracranial abnormality.
--- NOTE | 2019-01-24 18:38 | RAD REPORT ---
EXAM DESCRIPTION: CT - Angio Aorta For Dissection - 01/24/2019 6:27 pm CLINICAL HISTORY: Chest pain radiating to the back. dizziness COMPARISON: CTANGIO AORTA FOR DISSECTION dated 08/10/2014; CTANGIO AORTA FOR DISSECTION dated 05/21/19 15 TECHNIQUE: CT angiography of the aorta was performed with MIPs. All CT scans are performed using dose optimization technique as appropriate and may include automated exposure control or mA/KV adjustment according to patient size. FINDINGS: A left aortic arch is present with normal branching pattern of the great vessels.No acute aortic finding is seen such as aneurysm, penetrating ulcer or dissection. The celiac axis, SMA, ALYSSIA and renal arteries are patent. No evidence of pulmonary embolism. The lungs are emphysematous but clear. The liver demonstrates no focal mass or biliary dilatation.Cholecystectomy.The spleen, pancreas, adre nal glands and kidneys are within normal limits for arterial phase imaging. No bowel obstruction, free fluid or abscess.No pathologic enlarged lymphadenopathy identified. No fracture or worrisome bone lesion seen. IMPRESSION: No acute aortic finding is demonstrated.
--- NOTE | 2019-01-24 19:06 | EDPHYS ---
Physician Documentation [facility] Name: Leydi Guerrier Age: 73 yrs Sex: Female : 1945 Arrival Date: 01/24/2019 Time: 16:29 Bed 8 Private MD: ED Physician Kalyan Munoz HPI: 01/24 16:55 This 73 yrs old Female presents to ER via EMS with complaints of Dizziness, snw Arm Pain. 16:55 The patient presents with generalized weakness, lightheadedness, feeling off balance. snw Onset: The symptoms/episode began/occurred suddenly, just prior to arrival. Context: occurred at home, occurred while the patient was defecating, just prior to the episode the patient experienced no apparent symptoms. Modifying factors: the symptoms are aggravated by pain from right axilla down. Associated signs and symptoms: Pertinent positives: near-syncope, tingling. Severity of symptoms: At their worst the symptoms were moderate in the emergency department the symptoms have improved mildly. It is unknown whether or not the patient has had similar symptoms in the past. The patient has not recently seen a physician, sees Dr. Henderson. Historical: - Allergies: 16:36 Morphine; ae4 - PMHx: 16:36 CAD; COLON CA; CVA; Diabetes - IDDM; Glaucoma; High Cholesterol; Hypertension; legally ae4 blind; - Immunization history:: Flu vaccine is not up to date. - Social history:: Smoking status: Patient/guardian denies using tobacco. - Ebola Screening: : Patient denies travel to an Ebola-affected area in the 21 days before illness onset. ROS: 16:52 ENT: Negative for injury, pain, and discharge. snw 16:52 Neck: Negative for injury, pain, and swelling, Cardiovascular: Negative for chest pain, palpitations, and edema, Respiratory: Negative for shortness of breath, cough, wheezing, and pleuritic chest pain, Abdomen/GI: Negative for abdominal pain, nausea, vomiting, diarrhea, and constipation, Back: Negative for injury and pain, : Negative for injury, bleeding, discharge, and swelling, Skin: Negative for injury, rash, and discoloration. 16:52 Constitutional: Positive for body aches, malaise, near syncope with sudden right sided pain while on toilet. 16:52 Eyes: Positive for legally blind. 16:52 MS/extremity: Positive for right leg pain. 16:52 Neuro: Positive for dizziness, pain from right axilla down and down right leg. Exam: 16:51 Constitutional: This is a well developed, well nourished patient who is awake, alert, snw and in no acute distress. Head/Face: Normocephalic, atraumatic. ENT: Nares patent. No nasal discharge, no septal abnormalities noted. Tympanic membranes are normal and external auditory canals are clear. Oropharynx with no redness, swelling, or masses, exudates, or evidence of obstruction, uvula midline. Mucous membranes moist. Neck: Trachea midline, no thyromegaly or masses palpated, and no cervical lymphadenopathy. Supple, full range of motion without nuchal rigidity, or vertebral point tenderness. No Meningismus. Chest/axilla: Normal chest wall appearance and motion. Nontender with no deformity. No lesions are appreciated. Cardiovascular: Regular rate and rhythm with a normal S1 and S2. No gallops, murmurs, or rubs. Normal PMI, no JVD. No pulse deficits. Respiratory: Lungs have equal breath sounds bilaterally, clear to auscultation and percussion. No rales, rhonchi or wheezes noted. No increased work of breathing, no retractions or nasal flaring. Abdomen/GI: Soft, non-tender, with normal bowel sounds. No distension or tympany. No guarding or rebound. No evidence of tenderness throughout. Back: No spinal tenderness. No costovertebral tenderness. Full range of motion. Skin: Warm, dry with normal turgor. Normal color with no rashes, no lesions, and no evidence of cellulitis. Neuro: Awake and alert, GCS 15, oriented to person, place, time, and situation. Cranial nerves II-XII grossly intact. Motor strength 5/5 in all extremities. Sensory grossly intact. Cerebellar exam normal. Normal gait. Psych: Awake, alert, with orientation to person, place and time. Behavior, mood, and affect are within normal limits. 16:51 Musculoskeletal/extremity: Extremities: grossly normal except: noted in the chronic and acute amputations on bilateral feet: Circulation is intact in all extremities. Vital Signs: 16:30 BP 153 / 96; Pulse 65; Resp 19; Temp 98.2(O); Pulse Ox 98% on R/A; Weight 69.85 kg (R); ae4 Pain 8/10; 17:31 BP 162 / 57; Pulse 61; Resp 12; Pulse Ox 96% ; sv 18:53 BP 184 / 82; Pulse 72; Resp 18; Pulse Ox 98% on R/A; ae4 20:00 BP 187 / 63; Pulse 70; Resp 15; Pulse Ox 99% on R/A; jb4 MDM: 16:50 Patient medically screened. snw 19:06 Data reviewed: vital signs, nurses notes. Data interpreted: Pulse oximetry: on room air snw is 98 %. Interpretation: normal. Counseling: I had a detailed discussion with the patient and/or guardian regarding: the historical points, exam findings, and any diagnostic results supporting the discharge/admit diagnosis, the presence of at least one elevated blood pressure reading (>120/80) during this emergency department visit, lab results, radiology results, the need for outpatient follow up, to return to the emergency department if symptoms worsen or persist or if there are any questions or concerns that arise at home. 01/24 16:40 Order name: Basic Metabolic Panel; Complete Time: 17:56 sv 01/24 16:40 Order name: CBC with Diff; Complete Time: 17:56 sv 01/24 16:40 Order name: LFT's; Complete Time: 17:56 sv 01/24 16:40 Order name: Magnesium; Complete Time: 17:56 sv 01/24 16:40 Order name: NT PRO-BNP; Complete Time: 17:56 sv 01/24 16:40 Order name: PT-INR; Complete Time: 17:56 sv 01/24 16:40 Order name: Troponin (emerg Dept Use Only); Complete Time: 17:56 sv 01/24 16:40 Order name: XRAY Chest (1 view); Complete Time: 17:56 sv 01/24 16:40 Order name: CT Head Brain wo Cont; Complete Time: 18:38 sv 01/24 16:40 Order name: CT Aorta for Dissection; Complete Time: 18:54 sv 01/24 16:51 Order name: US Extremity Venous W Compression Villa; Complete Time: 18:25 snw 01/24 17:32 Order name: Glucose, Ancillary Testing; Complete Time: 17:56 EDMS 01/24 16:40 Order name: EKG; Complete Time: 16:42 sv 01/24 16:40 Order name: Cardiac monitoring; Complete Time: 17:25 sv 01/24 16:40 Order name: EKG - Nurse/Tech; Complete Time: 17: sv 01/24 16:40 Order name: IV Saline Lock; Complete Time: 17: sv 01/24 16:40 Order name: Labs collected and sent; Complete Time: 17: sv 01/24 16:40 Order name: O2 Per Protocol; Complete Time: 17: sv 01/24 16:40 Order name: O2 Sat Monitoring; Complete Time: 17: sv 01/24 16:57 Order name: FSBS; Complete Time: 17:25 snw Administered Medications: 17:15 Drug: fentaNYL (PF) 25 mcg Route: IVP; Site: right antecubital; ae4 17:36 Follow up: Response: Pain is decreased ae4 17:37 Follow up: Response: RASS: Alert and Calm (0) ae4 19:15 Drug: fentaNYL (PF) 50 mcg Route: IM; Site: right deltoid; ae4 Disposition: 01/25 07:13 Co-signature as Attending Physician, Kalyan Munoz MD. rn Disposition: 01/24/19 19:05 Discharged to Home. Impression: Pain in right lower leg. - Condition is Stable. - Discharge Instructions: Hypertension, Musculoskeletal Pain, Heat Therapy. - Medication Reconciliation Form, Thank You Letter, Antibiotic Education, Prescription Opioid Use form. - Follow up: Emergency Department; When: As needed; Reason: Worsening of condition. Follow up: Private Physician; When: 2 - 3 days; Reason: If symptoms return, Recheck today's complaints, Continuance of care. Signatures: Dispatcher [facility] Melisa Goins, RN RN Katty Novoa, WATERPROOF BAG CUTTING MACHINE OPERATOR-C WATERPROOF BAG CUTTING MACHINE OPERATOR-Csnw Kalyan Munoz MD MD rn [place], MyKena mw2 Rogelio Richey RN RN ae4 Corrections: (The following items were deleted from the chart) 01/24 20:34 19:05 01/24/2019 19:05 Discharged to Home. Impression: Pain in right lower leg. mw2 Condition is Stable. Forms are Medication Reconciliation Form, Thank You Letter, Antibiotic Education, Prescription Opioid Use. Follow up: Emergency Department; When: As needed; Reason: Worsening of condition. Follow up: Private Physician; When: 2 - 3 days; Reason: If symptoms return, Recheck today's complaints, Continuance of care. snw
--- NOTE | 2019-01-24 19:06 | ER ---
Nurse's Notes [facility] Name: Leydi Guerrier Age: 73 yrs Sex: Female : 1945 Arrival Date: 01/24/2019 Time: 16:29 Bed 8 Private MD: Diagnosis: Pain in right lower leg Presentation: 01/24 16:32 Presenting complaint: EMS states: EMS states patient called 911 using her medical alert ae4 necklace because she suddenly felt dizzy while sitting on the toilet and had sudden right arm pain origination in the right axillary area and radiating to her right hip area. Patient is blind and has home health nurse visit once daily. Transition of care: patient was not received from another setting of care. Onset of symptoms was January 24, 2019 at 16:00. Risk Assessment: Do you want to hurt yourself or someone else? Patient reports no desire to harm self or others. Care prior to arrival: Glucose check: 192 v/s 134/78 HR 70s. 16:32 Method Of Arrival: EMS: [facility] ae4 16:32 Acuity: ADY 3 ae4 17:32 Initial Sepsis Screen: Does the patient meet any 2 criteria? No. Patient's initial ae4 sepsis screen is negative. Does the patient have a suspected source of infection? Yes: Skin breakdown/wound. Triage Assessment: 16:36 General: Appears in no apparent distress. comfortable, obese, unkempt, Behavior is ae4 cooperative. Pain: Complains of pain in right axilla, right bicep, right antecubital area and dorsal aspect of right forearm. EENT: Patient reports she is blind.. Neuro: Level of Consciousness is awake, alert, obeys commands, Oriented to person, place, situation. Cardiovascular: Heart tones S1 S2 present Patient's skin is warm and dry. Respiratory: Airway is patent. GI: Abdomen is round obese. : Patient has adult diaper applied, diaper is currently dry. Derm: Skin is pale, Skin temperature is warm. Musculoskeletal: Patient ambulates with assistance of a walker. Historical: - Allergies: 16:36 Morphine; ae4 - PMHx: 16:36 CAD; COLON CA; CVA; Diabetes - IDDM; Glaucoma; High Cholesterol; Hypertension; legally ae4 blind; - Immunization history:: Flu vaccine is not up to date. - Social history:: Smoking status: Patient/guardian denies using tobacco. - Ebola Screening: : Patient denies travel to an Ebola-affected area in the 21 days before illness onset. Screenin:33 Abuse screen: Denies threats or abuse. Nutritional screening: No deficits noted. ae4 Tuberculosis screening: No symptoms or risk factors identified. Fall Risk No fall in past 12 months (0 pts). Secondary diagnosis (15 points) Patient is blind.. IV access (20 points). Ambulatory Aid- Furniture (30 pts.). Gait- Weak (10 pts.). Mental Status- Overestimates/Forgets Limitations (15 pts.). Assessment: 17:29 Reassessment: Please see full triage assessment. ae4 17:29 Reassessment: Patient states feeling better. Derm: Wound noted right foot Other: ae4 Patient's right foot is wrapped with dressings, EMS states her small toe is infected. 17:35 Reassessment: Patient and/or family updated on plan of care and expected duration. Pain ae4 level reassessed. Patient states she has pain in right foot and it is slightly better after medication administration. Patient states feeling better. 18:56 Reassessment: Patient returned from CT, c/o pain to right foot. ae4 19:10 Reassessment: Patient appears in no apparent distress at this time. Patient and/or jb4 family updated on plan of care and expected duration. Pain level reassessed. Patient is alert, oriented x 3, equal unlabored respirations, skin warm/dry/pink. D/c pending pt's ride. 20:30 Reassessment: Patient appears in no apparent distress at this time. Patient and/or jb4 family updated on plan of care and expected duration. Pain level reassessed. Patient is alert, oriented x 3, equal unlabored respirations, skin warm/dry/pink. Vital Signs: 16:30 BP 153 / 96; Pulse 65; Resp 19; Temp 98.2(O); Pulse Ox 98% on R/A; Weight 69.85 kg (R); ae4 Pain 8/10; 17:31 BP 162 / 57; Pulse 61; Resp 12; Pulse Ox 96% ; sv 18:53 BP 184 / 82; Pulse 72; Resp 18; Pulse Ox 98% on R/A; ae4 20:00 BP 187 / 63; Pulse 70; Resp 15; Pulse Ox 99% on R/A; jb4 ED Course: 16:29 Patient arrived in ED. ae4 16:30 Arm band placed on right wrist. ae4 16:35 Triage completed. ae4 16:44 Bed in low position. Call light in reach. Side rails up X2. Pulse ox on. NIBP on. Warm ae4 blanket given. 16:45 EKG done, by ED staff, reviewed by Katty CASEY. jb1 16:50 Katty Lee FNP-C is PHCP. snw 16:50 Kalyan Munoz MD is Attending Physician. snw 16:50 Radiology exam delayed due to lab results not completed at this time. (BUN/Creatinine). mw3 17:04 Rogelio Richey, RN is Primary Nurse. ae4 17:10 Radiology exam delayed due to lab results not completed at this time. (BUN/Creatinine). mw3 17:24 XRAY Chest (1 view) In Process Unspecified. EDMS 17:30 Radiology exam delayed due to lab results not completed at this time. (BUN/Creatinine). mw3 18:03 Ultrasound completed. Patient tolerated well. sg3 18:03 US Extremity Venous W Compression Villa In Process Unspecified. EDMS 18:08 IV discontinued, intact, bleeding controlled. jb1 18:08 Inserted saline lock: 22 gauge in left antecubital area, using aseptic technique. jb1 18:22 CT Head Brain wo Cont In Process Unspecified. EDMS 18:27 CT Aorta for Dissection In Process Unspecified. EDMS 18:27 CT completed. Patient tolerated procedure well. Patient moved back from CT. bq 20:00 No provider procedures requiring assistance completed. IV discontinued, intact, jb4 bleeding controlled. Administered Medications: 17:15 Drug: fentaNYL (PF) 25 mcg Route: IVP; Site: right antecubital; ae4 17:36 Follow up: Response: Pain is decreased ae4 17:37 Follow up: Response: RASS: Alert and Calm (0) ae4 19:15 Drug: fentaNYL (PF) 50 mcg Route: IM; Site: right deltoid; ae4 Outcome: 19:05 Discharge ordered by . snw 20:30 Discharged to home via wheelchair, with family. jb4 20:30 Condition: stable 20:30 Discharge instructions given to patient, family, Instructed on discharge instructions, follow up and referral plans. Demonstrated understanding of instructions, follow-up care. 20:34 Patient left the ED. mw2 Signatures: Dispatcher [employer] ED Obdulio Brice jb1 Melisa Tijerina, RN RN sv Katty Lee, COMMERCIAL INTELLIGENCE MANAGER-C COMMERCIAL INTELLIGENCE MANAGER-Csnw Destiny Hanna James RN RN jb4 Arielle Coombs 3 Josh Boateng mw2 Lorena Beltrán mw3 Rogelio Richey RN RN ae4 Corrections: (The following items were deleted from the chart) 17:27 17:26 General: Appears ae4 ae4 17:29 16:30 General: Appears in no apparent distress. uncomfortable, obese, ae4 ae4
[2019-01-24 20:48] VITALS: TEMP 98.2
[2019-01-24 20:50] VITALS: BP 184/82; O2SAT 98
--- NOTE | 2019-01-25 07:52 | EKG ---
Test Date: 2019-01-24 Test Time: 16:48:10 Management Coordinator: YOUSIF MEASUREMENT RESULTS: Intervals: Rate: 69 NJ: 182 QRSD: 110 QT: 402 QTc: 430 [place]: P: 108 NJ: 182 QRS: -36 T: 60 INTERPRETIVE STATEMENTS: Normal sinus rhythm Left axis deviation Pulmonary disease pattern Abnormal ECG Compared to ECG 10/19/2018 16:28:50 Left-axis deviation now present Incomplete right bundle-branch block no longer present Left anterior fascicular block no longer present Electronically Signed On 01-25-19 07:51:22 CDT by Rolf Moulton
== END 2019-01-24 20:34 | disposition home or self-care (01) ==
LOC: ER 16:19
DX: M79.661 Pain in right lower leg (principal); R53.1 Weakness; I10 Essential (primary) hypertension; Z85.038 Personal history of other malignant neoplasm of large intestine
CPT/HCPCS: 93005; 85025; 80048; 36415; 83735; 85610; 82947; 80076; 84484; 83880; 70450; 71275; 74175; 71045; 93970; 96372; 96374; 99284; Q9967; J3010 ×2

== ENCOUNTER 2019-01-24 22:45 | Emergency (ER) | payer OTHER ==
[2019-01-25] MEDS ORDERED: ONDANSETRON 4 MG (ODT) TAB ONE (00:37)
[2019-01-25 01:05] LABS: Urine Culture Reflex Order NOT NEEDED
[2019-01-25 01:06] LABS: Urine Bacteria <20 /HPF (<20); Urine RBC <5 /HPF (NONE SEEN)
[2019-01-25 01:07] LABS: Urine Blood TRACE (NEG); Urine Glucose 2+ (NEG); Urine Protein 1+ (NEG); Urine Specific Gravity 1.015 (1.005-1.030)
--- NOTE | 2019-01-25 01:19 | ER ---
Nurse's Notes [facility] Name: Leydi Guerrier Age: 73 yrs Sex: Female : 1945 Arrival Date: 01/24/2019 Time: 22:52 Bed 25 Private MD: Diagnosis: Muscle weakness (generalized) Presentation: 01/24 23:10 Presenting complaint: EMS states: Pt is feeling nauseated and dizzy. She was discharged tr5 from the hospital earlier today but just says she feels sick. Transition of care: patient was not received from another setting of care. Onset of symptoms was January 24, 2019. Risk Assessment: Do you want to hurt yourself or someone else? Patient reports no desire to harm self or others. Initial Sepsis Screen: Does the patient meet any 2 criteria? No. Patient's initial sepsis screen is negative. Does the patient have a suspected source of infection? No. Patient's initial sepsis screen is negative. Care prior to arrival: None. 23:10 Method Of Arrival: EMS: [facility] tr5 23:10 Acuity: ADY 3 tr5 Historical: - Allergies: 23:18 Morphine; tr5 - Home Meds: 23:18 Hilda Oral [Active]; atorvastatin Oral [Active]; gabapentin Oral [Active]; Glipizide tr5 Oral [Active]; Lyrica Oral [Active]; Naproxen Oral [Active]; Protonix Oral [Active]; lisinopril 10 mg Oral tab 1 tab once daily [Active]; Protonix 40 mg Oral TbEC 1 tab once daily [Active]; simvastatin 20 mg Oral tab 1 tab once daily for Mixed Hyperlipidemia [Active]; RESTASIS [Active]; pregabalin 75 MG Oral 1 cap 2 times per day [Active]; Plavix 75 mg Oral tab 1 tab once daily for Myocardial Reinfarction Prevention [Active]; metformin 500 mg Oral tab 1 tab 2 times per day for Type 2 Diabetes Mellitus [Active]; oxybutynin chloride 10 mg Oral tr24 1 tab once daily [Active]; Januvia Oral [Active]; Iron CR Oral [Active]; - PMHx: 23:18 CAD; COLON CA; CVA; Diabetes - IDDM; Glaucoma; High Cholesterol; Hypertension; legally tr5 blind; - Immunization history:: Adult Immunizations up to date. - Social history:: Smoking status: unknown. - Ebola Screening: : No symptoms or risks identified at this time. Screenin:49 Abuse screen: Denies threats or abuse. Nutritional screening: No deficits noted. tr5 Tuberculosis screening: No symptoms or risk factors identified. Fall Risk None identified. Assessment: 23:49 General: Appears uncomfortable. Pain: Complains of pain in face. Neuro: Level of tr5 Consciousness is awake, alert, obeys commands, Oriented to person, place, time, Lipcoat Sprayer are equal bilaterally. Cardiovascular: Heart tones present Capillary refill < 3 seconds. Respiratory: Airway is patent Respiratory effort is even, unlabored, Respiratory pattern is regular, symmetrical. GI: No signs and/or symptoms were reported involving the gastrointestinal system. : No signs and/or symptoms were reported regarding the genitourinary system. EENT: No signs and/or symptoms were reported regarding the EENT system. Derm: No signs and/or symptoms reported regarding the dermatologic system. Musculoskeletal: No signs and/or symptoms reported regarding the musculoskeletal system. Vital Signs: 23:18 BP 153 / 61; Pulse 67; Resp 16; Temp 97.9(O); Pulse Ox 100% on R/A; tr5 01/25 00:04 BP 147 / 57; Pulse 73; Resp 16; Pulse Ox 100% on R/A; tr5 ED Course: 01/24 22:52 Patient arrived in ED. ds1 22:55 Katty Lee FNP-C [facility]. snw 22:55 Duran Pires MD is Attending Physician. snw 22:58 Laron Rosales RN is Primary Nurse. tr5 23:12 Triage completed. tr5 23:18 Arm band placed on Patient placed. tr5 23:49 Bed in low position. Call light in reach. Side rails up X 1. tr5 01/25 00:00 Straight cath inserted, using sterile technique, 16 Fr. Specimen obtained. bb 00:04 Urine collected: straight cath specimen, clear. tr5 00:10 Urine Microscopic Only Sent. ds4 00:10 Urine Culture Sent. ds4 01:41 No provider procedures requiring assistance completed. Patient did not have IV access tr5 during this emergency room visit. Administered Medications: 00:38 Drug: Zofran 4 mg Route: PO; tr5 01:53 Follow up: Response: Nausea is decreased tr5 Outcome: 01:18 Discharge ordered by . snw 01:41 Discharged to home via wheelchair, with family. tr5 01:41 Condition: stable 01:41 Discharge instructions given to patient, family, Instructed on discharge instructions, follow up and referral plans. medication usage, Demonstrated understanding of instructions, follow-up care, medications. 01:44 Patient left the ED. tr5 Signatures: Katty Lee, HOUSEKEEPER MANAGER-C HOUSEKEEPER MANAGER-Csnw Pam Jaffe ds1 Iris Field, RN RN bb Markel Lance ds4 Laron Rosales, RN RN tr5
--- NOTE | 2019-01-25 01:19 | EDPHYS ---
Physician Documentation [facility] Name: Leydi Guerrier Age: 73 yrs Sex: Female : 1945 Arrival Date: 01/24/2019 Time: 22:52 Bed 25 Private MD: ED Physician Duran Pires HPI: 01/24 23:41 This 73 yrs old Female presents to ER via EMS with complaints of Dizziness. snw 23:41 The patient presents with generalized weakness. Onset: The symptoms/episode snw began/occurred today. Context: occurred at home, occurred while the patient was getting up from bed. Modifying factors: The symptoms are alleviated by nothing. Associated signs and symptoms: Pertinent positives: nausea, generalized weakness. Severity of symptoms: At their worst the symptoms were moderate. The patient has experienced similar episodes in the past. The patient has been recently seen at the [facility] Emergency Department, today, by me, for similar complaints labs were performed, X-rays were performed, an ultrasound was performed, CT scan was performed, Previous workup normal pt c/o left leg pain and was given Fentanyl IM prior to discharge from ED. Pt states she felt weak and tired and nauseated since discharge. Historical: - Allergies: 23:18 Morphine; tr5 - Home Meds: 23:18 Hilda Oral [Active]; atorvastatin Oral [Active]; gabapentin Oral [Active]; Glipizide tr5 Oral [Active]; Lyrica Oral [Active]; Naproxen Oral [Active]; Protonix Oral [Active]; lisinopril 10 mg Oral tab 1 tab once daily [Active]; Protonix 40 mg Oral TbEC 1 tab once daily [Active]; simvastatin 20 mg Oral tab 1 tab once daily for Mixed Hyperlipidemia [Active]; RESTASIS [Active]; pregabalin 75 MG Oral 1 cap 2 times per day [Active]; Plavix 75 mg Oral tab 1 tab once daily for Myocardial Reinfarction Prevention [Active]; metformin 500 mg Oral tab 1 tab 2 times per day for Type 2 Diabetes Mellitus [Active]; oxybutynin chloride 10 mg Oral tr24 1 tab once daily [Active]; Januvia Oral [Active]; Iron CR Oral [Active]; - PMHx: 23:18 CAD; COLON CA; CVA; Diabetes - IDDM; Glaucoma; High Cholesterol; Hypertension; legally tr5 blind; - Immunization history:: Adult Immunizations up to date. - Social history:: Smoking status: unknown. - Ebola Screening: : No symptoms or risks identified at this time. ROS: 23:38 Eyes: Negative for injury, pain, redness, and discharge, ENT: Negative for injury, snw pain, and discharge, Neck: Negative for injury, pain, and swelling, Cardiovascular: Negative for chest pain, palpitations, and edema, Respiratory: Negative for shortness of breath, cough, wheezing, and pleuritic chest pain. 23:38 Back: Negative for injury and pain, : Negative for injury, bleeding, discharge, and swelling, MS/Extremity: Negative for injury and deformity, Skin: Negative for injury, rash, and discoloration. 23:38 Constitutional: Positive for body aches, fatigue, malaise, poor PO intake. 23:38 Abdomen/GI: Positive for nausea. 23:38 Neuro: Positive for weakness. Exam: 23:38 Constitutional: This is a well developed, well nourished patient who is awake, alert, snw and in no acute distress. Head/Face: Normocephalic, atraumatic. ENT: Nares patent. No nasal discharge, no septal abnormalities noted. Tympanic membranes are normal and external auditory canals are clear. Oropharynx with no redness, swelling, or masses, exudates, or evidence of obstruction, uvula midline. Mucous membranes moist. Neck: Trachea midline, no thyromegaly or masses palpated, and no cervical lymphadenopathy. Supple, full range of motion without nuchal rigidity, or vertebral point tenderness. No Meningismus. Chest/axilla: Normal chest wall appearance and motion. Nontender with no deformity. No lesions are appreciated. 23:38 Cardiovascular: Regular rate and rhythm with a normal S1 and S2. No gallops, murmurs, or rubs. Normal PMI, no JVD. No pulse deficits. Respiratory: Lungs have equal breath sounds bilaterally, clear to auscultation and percussion. No rales, rhonchi or wheezes noted. No increased work of breathing, no retractions or nasal flaring. 23:38 Back: No spinal tenderness. No costovertebral tenderness. Full range of motion. Skin: Warm, dry with normal turgor. Normal color with no rashes, no lesions, and no evidence of cellulitis. MS/ Extremity: Pulses equal, no cyanosis. Neurovascular intact. Full, normal range of motion. Neuro: Awake and alert, GCS 15, oriented to person, place, time, and situation. Cranial nerves II-XII grossly intact. Motor strength 5/5 in all extremities. Sensory grossly intact. Cerebellar exam normal. Psych: Awake, alert, with orientation to person, place and time. Behavior, mood, and affect are within normal limits. 23:38 Eyes: Exam is negative for Extraocular movements: no acute changes, Conjunctiva: normal. 23:38 Abdomen/GI: Inspection: abdomen appears normal, Bowel sounds: normal, in all quadrants. Vital Signs: 23:18 BP 153 / 61; Pulse 67; Resp 16; Temp 97.9(O); Pulse Ox 100% on R/A; tr5 01/25 00:04 BP 147 / 57; Pulse 73; Resp 16; Pulse Ox 100% on R/A; tr5 MDM: 01/24 22:56 Patient medically screened. snw 01/25 01:21 Data reviewed: vital signs, nurses notes. Data interpreted: Pulse oximetry: on room air snw is 100 %. Interpretation: normal. Counseling: I had a detailed discussion with the patient and/or guardian regarding: the historical points, exam findings, and any diagnostic results supporting the discharge/admit diagnosis, the presence of at least one elevated blood pressure reading (>120/80) during this emergency department visit, lab results, the need for outpatient follow up, for definitive care. Special discussion: Based on the history and exam findings, there is no indication for further emergent testing or inpatient evaluation. I discussed with the patient/guardian the need to see the primary care provider for further evaluation of the symptoms. Wound care. 01/24 22:56 Order name: Urine Culture snw 01/24 22:56 Order name: Urine Microscopic Only; Complete Time: 01:17 snw 01/24 22:56 Order name: Cath; Complete Time: 00:02 snw 01/24 22:56 Order name: Urine Dipstick-Ancillary (obtain specimen); Complete Time: 00:02 snw 01/25 00:11 Order name: Urine Dipstick--Ancillary (enter results); Complete Time: 01:17 ds4 01/25 00:33 Order name: Misjenni. Order: ambulate with pt in hallway; Complete Time: 01:31 snw Administered Medications: 00:38 Drug: Zofran 4 mg Route: PO; tr5 01:53 Follow up: Response: Nausea is decreased tr5 Disposition: 09:02 Co-signature as Attending Physician, Duran Pires MD I agree with the assessment and tw4 plan of care. Disposition: 01/25/19 01:18 Discharged to Home. Impression: Muscle weakness (generalized). - Condition is Stable. - Discharge Instructions: Weakness. - Prescriptions for Zofran 4 mg Oral Tablet - take 1 tablet by ORAL route every 12 hours As needed; 6 tablet. - Medication Reconciliation Form, Thank You Letter, Antibiotic Education, Prescription Opioid Use form. - Follow up: Emergency Department; When: As needed; Reason: Worsening of condition. Follow up: Private Physician; When: Tomorrow; Reason: Recheck today's complaints, Continuance of care, Re-evaluation by your physician. Signatures: Dispatcher [employer] EDAL Katty Lee, EMA-C SOLAR FIELD SERVICE TECHNICIAN-CsnDuran Winkler MD MD tw4 Laron Rosales, RN RN tr5 Corrections: (The following items were deleted from the chart) 01:44 01:18 01/25/2019 01:18 Discharged to Home. Impression: Muscle weakness (generalized). tr5 Condition is Stable. Forms are Medication Reconciliation Form, Thank You Letter, Antibiotic Education, Prescription Opioid Use. Follow up: Emergency Department; When: As needed; Reason: Worsening of condition. Follow up: Private Physician; When: Tomorrow; Reason: Recheck today's complaints, Continuance of care, Re-evaluation by your physician. snw
[2019-01-25 01:50] VITALS: TEMP 97.9; O2SAT 100
[2019-01-25 01:51] VITALS: BP 147/57
== END 2019-01-25 01:44 | disposition home or self-care (01) ==
LOC: ER 22:45
DX: M62.81 Muscle weakness (generalized) (principal); I10 Essential (primary) hypertension; H54.7 Unspecified visual loss; E11.9 Type 2 diabetes mellitus without complications; Z85.038 Personal history of other malignant neoplasm of large intestine; Z88.6 Allergy status to analgesic agent
CPT/HCPCS: 51702; 81003; 81015; 87086; 87088; 99283

== ENCOUNTER 2019-02-22 12:52 | Inpatient (IN) | payer OTHER ==
--- OUTSIDE RECORDS SUMMARY | 2019-02-22 12:55 | XMS REPORT ---
:1945 Author Organization [facility] Address [address] [place] [address] Care Team Providers Name Role Phone TOMAS RODRIGUEZ Unavailable Unavailable Problems This patient has no known problems. Allergies, Adverse Reactions, Alerts This patient has no known allergies or adverse reactions. Medications This patient has no known medications. Results Test Description Test Time Test Comments Text Results Atomic Results Result Comments POCT-GLUCOSE METER 2019-02-19 07:36:00 Test Item Value Reference Range Comments POC-GLUCOSE METER (BEAKER) 81 mg/dL 70-110 : TESTED AT [facility] [address] [place] [address], (test apol=4150) [facility] [id number]: Rn Clinical Appeals/Supervisor Powdered Sugar [id number] for Shahana Hewitt RAD, CHEST, 1 VIEW, NON [id number] 00:12:00Reason for exam:->to verify tip of picc line.Should this be performed at the bedside?->YesFINAL REPORT RAD, CHEST, 1 VIEW, NON DEPT INDICATION: to verify tip of picc line. COMPARISON: None FINDINGS: Portable frontal view of the chest. IMPRESSION: Support Lines: Theright PICC tip terminates in the lateral right subclavian region. Lungs and pleura: Hypoinflated lungs without airspace consolidation or pleural effusion. No pneumothorax.Heart and mediastinum: Unremarkable cardiomediastinal silhouette. Additional findings: None. Signed : Erica Campoverde Verified Date/Time: 02/19/2019 00:12:27 12:12 AMPOCT-GLUCOSE [id number] 23:41:00 Test Item Value Reference Range Comments POC-GLUCOSE METER (BEAKER) 96 mg/dL 70-110 : TESTED AT [facility] [address] [facility] (test qmoe=9221) [facility] [address]: Rn Clinical Appeals/Supervisor Powdered Sugar [id number] for Doreen Schmitt POCT-GLUCOSE [id number] 08:55:00 Test Item Value Reference Range Comments POC-GLUCOSE METER (BEAKER) 76 mg/dL 70-110 : TESTED AT [facility] [address] [facility] (test wplu=4929) [facility] [address]: Rn Clinical Appeals/Supervisor Powdered Sugar [id number] for Dyan Lujan BASIC METABOLIC [id number] 05:09:00 Test Item Value Reference Range Comments SODIUM (BEAKER) (test 140 meq/L 135-148 xikb=506) POTASSIUM (BEAKER) (test 3.5 meq/L 3.6-5.5 erqg=422) CHLORIDE (BEAKER) (test 108 meq/L 98-106 zfbb=194) CO2 (BEAKER) (test 24 meq/L 20-29 iytd=089) BLOOD UREA NITROGEN 12 mg/dL 10-26 (BEAKER) (test zgla=478) CREATININE (BEAKER) (test 0.79 mg/dL 0.50-1.20 glec=225) GLUCOSE RANDOM (BEAKER) 82 mg/dL 70-110 (test eupk=125) CALCIUM (BEAKER) (test 8.8 mg/dL 8.5-10.5 sama=385) EGFR (BEAKER) (test 86 mL/min/1.73 sq m ESTIMATED GFR IS NOT wobe=5989) ACCURATE CREATININE CLEARANCE IN PREDICTING GLOMERULAR FILTRATION RATE. ESTIMATED GFR IS NOT APPLICABLE FOR DIALYSIS PATIENTS. LIPID [id number] 05:08:00 Test Item Value Reference Range Comments TRIGLYCERIDES (BEAKER) (test ldsl=869) 46 mg/dL CHOLESTEROL (BEAKER) (test votd=858) 90 mg/dL HDL CHOLESTEROL (BEAKER) (test tmma=513) 44 mg/dL LDL CHOLESTEROL CALCULATED (BEAKER) (test dbgf=586) 37 mg/dL Triglyceride Reference Range: Low Risk <150 Borderline 150- 199 High Risk 200-499 Very High Risk >=500Cholesterol Reference Range: Low Risk <200 Borderline 200-239 High Risk > 240HDL Cholesterol Reference Range: Low Risk >=60 High Risk <40LDL Cholesterol Reference Range: Optimal <100 Near Optimal 100-129 Borderline 130-159 High 160-189 Very High >=190HEPATIC FUNCTION [id number] 05:08:00 Test Item Value Reference Range Comments TOTAL PROTEIN (BEAKER) (test jaoz=684) 5.8 gm/dL 6.0-8.5 ALBUMIN (BEAKER) (test eovj=8139) 3.3 g/dL 3.5-5.0 BILIRUBIN TOTAL (BEAKER) (test azko=861) 0.4 mg/dL 0.1-1.2 BILIRUBIN DIRECT (BEAKER) (test dcpi=969) 0.2 mg/dL 0.0-0.4 ALKALINE PHOSPHATASE (BEAKER) (test fhwd=022) 59 U/L 30-115 AST (SGOT) (BEAKER) (test pvvx=686) 12 U/L 5-40 ALT (SGPT) (BEAKER) (test dqup=798) 5 U/L 5-50 HEMOGLOBIN [id number] 05:02:00 Test Item Value Reference Range Comments HEMOGLOBIN A1C (BEAKER) (test hitu=128) 8.6 % 4.3-6.1 CBC W/PLT COUNT & AUTO [id number] 04:47:00 Test Item Value Reference Range Comments WHITE BLOOD CELL COUNT (BEAKER) (test orjd=166) 4.6 K/ L 4.0-10.0 RED BLOOD CELL COUNT (BEAKER) (test wchq=781) 3.34 M/ L 4.00-5.00 HEMOGLOBIN (BEAKER) (test risn=118) 9.4 GM/DL 12.0-15.5 HEMATOCRIT (BEAKER) (test uhal=244) 28.7 % 36.0-46.0 MEAN CORPUSCULAR VOLUME (BEAKER) (test ewfe=161) 85.9 fL 82.0-99.0 MEAN CORPUSCULAR HEMOGLOBIN (BEAKER) (test 28.1 pg 27.0-33.0 tmdm=840) MEAN CORPUSCULAR HEMOGLOBIN CONC (BEAKER) (test 32.8 GM/DL 32.0-36.0 yzbb=256) RED CELL DISTRIBUTION WIDTH (BEAKER) (test 13.5 % 12.0-15.0 dhum=564) PLATELET COUNT (BEAKER) (test gjoi=884) 145 K/CU MM 150-430 MEAN PLATELET VOLUME (BEAKER) (test fsdm=232) 11.0 fL 6.0-11.5 NUCLEATED RED BLOOD CELLS (BEAKER) (test 0 /100 WBC 0-0 actx=966) NEUTROPHILS RELATIVE PERCENT (BEAKER) (test 61 % lrts=455) LYMPHOCYTES RELATIVE PERCENT (BEAKER) (test 28 % pwtz=523) MONOCYTES RELATIVE PERCENT (BEAKER) (test 9 % qscc=028) EOSINOPHILS RELATIVE PERCENT (BEAKER) (test 1 % flca=346) BASOPHILS RELATIVE PERCENT (BEAKER) (test 1 % ixcs=926) NEUTROPHILS ABSOLUTE COUNT (BEAKER) (test 2.79 K/ L 1.80-8.00 jxen=201) LYMPHOCYTES ABSOLUTE COUNT (BEAKER) (test 1.28 K/ L 1.48-4.50 qucj=951) MONOCYTES ABSOLUTE COUNT (BEAKER) (test 0.40 K/ L 0.00-1.30 dtxh=884) EOSINOPHILS ABSOLUTE COUNT (BEAKER) (test 0.05 K/ L 0.00-0.50 iisc=210) BASOPHILS ABSOLUTE COUNT (BEAKER) (test 0.06 K/ L 0.00-0.20 ztfu=483) IMMATURE GRANULOCYTES-RELATIVE PERCENT (BEAKER) 0 % 0-0 (test llzj=3782) POCT-GLUCOSE [id number] 22:56:00 Test Item Value Reference Range Comments POC-GLUCOSE METER (BEAKER) 95 mg/dL 70-110 : TESTED AT [address] (test kbfp=5413) [facility] [address]: Rn Clinical Appeals/Supervisor Powdered Sugar [id number] for Yvonne Nehal CT, [id number] 18:58:00Reason for exam:->VAGINAL DISCHARGEWhat is the patient's sedation requirement?->No SedationFINAL REPORT ABDOMINAL AND PELVIS CT DATED 02/17/2019 CLINICAL INFORMATION:VAGINAL DISCHARGEvaginal discharge and abdominal pain TECHNIQUE: Axial images of the abdomen and pelvis were obtained from diaphragm to the pubic symphysis with intravenous contrast. This exam was performed according to our departmental dose-optimization program, which includes automated exposure control, adjustment of the mA and/or kV according to patient size and/or use of interactive reconstruction technique. COMMENT: Liver and spleen are normal in size without focal abnormality. Gallbladder is surgically absent. No biliary dilatation is noted. Pancreas and adrenals are unremarkable. Both kidneys are normal in size and functioning. No hydronephrosis, hydroureter, urolithiasis is seen. Patient is status post ascending hemicolectomy. There is nonspecific wall thickening in the region of the hepatic flexure adjacent to the ileocolonic anastomosis. Uterus is surgically absent. Both ovaries are not well seen. Small amount of air is noted in the vagina. Colovaginal fistula cannot be entirelyexcluded. No mass, adenopathy or ascites is present. IMPRESSION: 1. Status post cholecystectomy and hysterectomy.2. Status post ascending hemicolectomy with wall thickening in the hepatic flexure adjacent to the ileocolonic anastomosis. Please correlate clinically.3. Air in the vagina. Please correlate clinically for possible colovaginal fistula. Signed: Erica Schultz MDReport Verified Date/Time: 02/17/2019 18:58:34 Reading Location: [facility] Consult Reading Room [id number] 18:20:00 Test Item Value Reference Range Comments LIPASE (BEAKER) (test dglk=975) 6 U/L 6-51 BASIC METABOLIC [id number] 18:20:00 Test Item Value Reference Range Comments SODIUM (BEAKER) (test 138 meq/L 135-148 elua=261) POTASSIUM (BEAKER) (test 3.7 meq/L 3.6-5.5 bmma=997) CHLORIDE (BEAKER) (test 105 meq/L 98-106 tekf=645) CO2 (BEAKER) (test atil=389) 25 meq/L 20-29 BLOOD UREA NITROGEN (BEAKER) 11 mg/dL 10-26 (test fqbx=837) CREATININE (BEAKER) (test 0.91 mg/dL 0.50-1.20 agno=170) GLUCOSE RANDOM (BEAKER) 99 mg/dL 70-110 (test wosn=462) CALCIUM (BEAKER) (test 9.0 mg/dL 8.5-10.5 sodb=555) EGFR (BEAKER) (test INSUFFICIENT CLINICAL DATA TO wwxl=0617) CALCULATE ESTIMATED GFR. HEPATIC FUNCTION [id number] 18:19:00 Test Item Value Reference Range Comments TOTAL PROTEIN (BEAKER) (test qsnh=302) 6.1 gm/dL 6.0-8.5 ALBUMIN (BEAKER) (test ztxk=3588) 3.4 g/dL 3.5-5.0 BILIRUBIN TOTAL (BEAKER) (test exhs=521) 0.5 mg/dL 0.1-1.2 BILIRUBIN DIRECT (BEAKER) (test dspx=086) 0.3 mg/dL 0.0-0.4 ALKALINE PHOSPHATASE (BEAKER) (test geeg=207) 67 U/L 30-115 AST (SGOT) (BEAKER) (test kvoe=139) 13 U/L 5-40 ALT (SGPT) (BEAKER) (test fhgo=918) 5 U/L 5-50 PROTHROMBIN [id number] 18:11:00 Test Item Value Reference Range Comments PROTIME (BEAKER) (test rorw=238) 14.2 sec 9.3-12.0 INR (BEAKER) (test sdki=009) 1.3 <=5.9 RECOMMENDED COUMADIN/WARFARIN INR THERAPY RANGESSTANDARD DOSE: 2.0 - 3.0 Includes: PROPHYLAXIS forvenous thrombosis, systemic embolization; TREATMENT for venous thrombosis and/or pulmonary embolus.HIGH RISK: Target INR is 2.5-3.5 for patients with mechanical heart valves.Final Information (Auto Output)Final Information (Auto Output)CBC W/PLT COUNT & AUTO [id number] 18:01 :00 Test Item Value Reference Range Comments WHITE BLOOD CELL COUNT (BEAKER) (test usmm=220) 5.8 K/ L 4.0-10.0 RED BLOOD CELL COUNT (BEAKER) (test xokk=862) 3.43 M/ L 4.00-5.00 HEMOGLOBIN (BEAKER) (test sgxw=877) 9.7 GM/DL 12.0-15.5 HEMATOCRIT (BEAKER) (test lsdv=810) 29.6 % 36.0-46.0 MEAN CORPUSCULAR VOLUME (BEAKER) (test zrjr=869) 86.3 fL 82.0-99.0 MEAN CORPUSCULAR HEMOGLOBIN (BEAKER) (test 28.3 pg 27.0-33.0 enrg=910) MEAN CORPUSCULAR HEMOGLOBIN CONC (BEAKER) (test 32.8 GM/DL 32.0-36.0 kuky=542) RED CELL DISTRIBUTION WIDTH (BEAKER) (test 13.6 % 12.0-15.0 odqv=055) PLATELET COUNT (BEAKER) (test cesp=002) 146 K/CU MM 150-430 MEAN PLATELET VOLUME (BEAKER) (test fnyn=047) 10.7 fL 6.0-11.5 NUCLEATED RED BLOOD CELLS (BEAKER) (test 0 /100 WBC 0-0 tpzb=314) NEUTROPHILS RELATIVE PERCENT (BEAKER) (test 69 % deiv=446) LYMPHOCYTES RELATIVE PERCENT (BEAKER) (test 18 % hnqh=531) MONOCYTES RELATIVE PERCENT (BEAKER) (test 10 % coet=029) EOSINOPHILS RELATIVE PERCENT (BEAKER) (test 2 % egpg=064) BASOPHILS RELATIVE PERCENT (BEAKER) (test 1 % lblm=356) NEUTROPHILS ABSOLUTE COUNT (BEAKER) (test 3.99 K/ L 1.80-8.00 ihyo=997) LYMPHOCYTES ABSOLUTE COUNT (BEAKER) (test 1.07 K/ L 1.48-4.50 lfcb=405) MONOCYTES ABSOLUTE COUNT (BEAKER) (test 0.57 K/ L 0.00-1.30 rbwn=723) EOSINOPHILS ABSOLUTE COUNT (BEAKER) (test 0.11 K/ L 0.00-0.50 zsnx=265) BASOPHILS ABSOLUTE COUNT (BEAKER) (test 0.07 K/ L 0.00-0.20 fuma=715) IMMATURE GRANULOCYTES-RELATIVE PERCENT (BEAKER) 0 % 0-0 (test mmjg=8107) WET [id number] 17:57:00 Test Item Value Reference Range Comments WBC WET PREP (BEAKER) (test Moderate white blood cells seen hmod=560) CLUE CELLS (BEAKER) (test No clue cells seen ndxw=603) YEAST WET PREP (BEAKER) No budding yeast seen (test xuus=895) TRICH WET PREP (BEAKER) No Trichomonas seen (test lhfs=345) BACT WET PREP (BEAKER) (test Few bacteria seen wbkp=585)
[2019-02-22 13:57] LABS: Absolute Lymphocytes (CBC) 1.2 K/uL (0.7-4.9); Basophils % 2.3 % (0-1.3); Hematocrit 29.6 % (36.0-45.0); Lymphocytes % 23.8 % (15.3-44.8); MPV 8.9 fL (7.6-11.3); RBC Red Blood Cell Count 3.47 M/uL (3.86-4.86)
--- NOTE | 2019-02-22 14:19 | RAD REPORT ---
EXAM DESCRIPTION: RAD - Chest Single View - 02/22/2019 1:53 pm CLINICAL HISTORY: Cough COMPARISON: January 24 TECHNIQUE: AP portable chest image was obtained 1339 hours . FINDINGS: Lung volumes are low. Interstitial pattern is similar or less prominent than comparison. N o failure, infiltrate or other acute finding. Heart and vasculature are normal. No measurable pleural effusion and no pneumothorax. No acute bony abnormality seen. No acute aortic findings suspected. IMPRESSION: No acute cardiopulmonary process. No worrisome change from comparison.
[2019-02-22 14:22] LABS: ALT/SGPT 19 U/L (12-78); AST/SGOT 19 U/L (15-37); Albumin 2.9 g/dL (3.4-5.0); Alkaline Phosphatase 58 U/L (45-117); BUN Blood Urea Nitrogen 16 mg/dL (7-18); Bicarbonate 26 mmol/L (21-32); Bilirubin Direct 0.1 mg/dL (0-0.2); Bilirubin Total 0.3 mg/dL (0.2-1.0); Glucose Level 150 mg/dL (74-106); Lipase 56 U/L (73-393); Magnesium 1.9 mg/dL (1.8-2.4); NT PRO-BNP 140 pg/mL (<125); Potassium 3.3 mmol/L (3.5-5.1); Protein, Total 6.2 g/dL (6.4-8.2); Sodium Level 145 mmol/L (136-145); Troponin (Emerg Dept Use Only) < 0.02 ng/mL (0.0-0.045)
[2019-02-22 14:47] LABS: Protime INR 2.61
--- NOTE | 2019-02-22 15:49 | EDPHYS ---
Physician Documentation [facility] Name: Leydi Guerrier Age: 73 yrs Sex: Female : 1945 Arrival Date: 02/22/2019 Time: 13:02 Bed 19 Private MD: ED Physician Gopi Pittman HPI: 02/22 15:40 This 73 yrs old Female presents to ER via EMS with complaints of General yonis Weakness. 15:40 weakness, fall. Details of fall: The patient fell from an upright position, while yonis walking. Onset: The symptoms/episode began/occurred this morning, today. Associated injuries: The patient sustained injury to the chest, injury to the abdomen. Severity of symptoms: At their worst the symptoms were mild, in the emergency department the symptoms are unchanged. Severity of symptoms: At their worst the symptoms were mild in the emergency department the symptoms are unchanged. The patient has not experienced similar symptoms in the past. Historical: - Allergies: 13:12 Morphine; la1 - Home Meds: 13:12 Hilda Oral [Active]; atorvastatin Oral [Active]; simvastatin 20 mg Oral tab 1 tab la1 once daily for Mixed Hyperlipidemia [Active]; Protonix 40 mg Oral TbEC 1 tab once daily [Active]; pregabalin 75 MG Oral 1 cap 2 times per day [Active]; Plavix 75 mg Oral tab 1 tab once daily for Myocardial Reinfarction Prevention [Active]; oxybutynin chloride 10 mg Oral tr24 1 tab once daily [Active]; metformin 500 mg Oral tab 1 tab 2 times per day for Type 2 Diabetes Mellitus [Active]; lisinopril 10 mg Oral tab 1 tab once daily [Active]; gabapentin Oral [Active]; Glipizide Oral [Active]; Iron CR Oral [Active]; Januvia Oral [Active]; Lyrica Oral [Active]; Naproxen Oral [Active]; Protonix Oral [Active]; RESTASIS [Active]; - PMHx: 13:12 CAD; COLON CA; CVA; Diabetes - IDDM; Glaucoma; High Cholesterol; Hypertension; legally la1 blind; - Immunization history:: Adult Immunizations up to date. - Social history:: Smoking status: Patient/guardian denies using tobacco. - Ebola Screening: : No symptoms or risks identified at this time. - Family history:: not pertinent. ROS: 15:40 Constitutional: Negative for fever, chills, and weight loss, Eyes: Negative for injury, yonis pain, redness, and discharge, ENT: Negative for injury, pain, and discharge, Neck: Negative for injury, pain, and swelling, Cardiovascular: Negative for chest pain, palpitations, and edema, Respiratory: Negative for shortness of breath, cough, wheezing, and pleuritic chest pain, Abdomen/GI: Negative for abdominal pain, nausea, vomiting, diarrhea, and constipation, Back: Negative for injury and pain, : Negative for injury, bleeding, discharge, and swelling, MS/Extremity: Negative for injury and deformity, Skin: Negative for injury, rash, and discoloration, Psych: Negative for depression, anxiety, suicide ideation, homicidal ideation, and hallucinations, Allergy/Immunology: Negative for hives, rash, and allergies, Endocrine: Negative for neck swelling, polydipsia, polyuria, polyphagia, and marked weight changes, Hematologic/Lymphatic: Negative for swollen nodes, abnormal bleeding, and unusual bruising. 15:40 Neuro: Positive for dizziness, weakness. Exam: 15:40 Constitutional: This is a well developed, well nourished patient who is awake, alert, yonis and in no acute distress. Head/Face: Normocephalic, atraumatic. Eyes: Pupils equal round and reactive to light, extra-ocular motions intact. Lids and lashes normal. Conjunctiva and sclera are non-icteric and not injected. Cornea within normal limits. Periorbital areas with no swelling, redness, or edema. ENT: Nares patent. No nasal discharge, no septal abnormalities noted. Tympanic membranes are normal and external auditory canals are clear. Oropharynx with no redness, swelling, or masses, exudates, or evidence of obstruction, uvula midline. Mucous membranes moist. Neck: Trachea midline, no thyromegaly or masses palpated, and no cervical lymphadenopathy. Supple, full range of motion without nuchal rigidity, or vertebral point tenderness. No Meningismus. Chest/axilla: Normal chest wall appearance and motion. Nontender with no deformity. No lesions are appreciated. Cardiovascular: Regular rate and rhythm with a normal S1 and S2. No gallops, murmurs, or rubs. Normal PMI, no JVD. No pulse deficits. Respiratory: Lungs have equal breath sounds bilaterally, clear to auscultation and percussion. No rales, rhonchi or wheezes noted. No increased work of breathing, no retractions or nasal flaring. Back: No spinal tenderness. No costovertebral tenderness. Full range of motion. Skin: Warm, dry with normal turgor. Normal color with no rashes, no lesions, and no evidence of cellulitis. MS/ Extremity: Pulses equal, no cyanosis. Neurovascular intact. Full, normal range of motion. Neuro: Awake and alert, GCS 15, oriented to person, place, time, and situation. Cranial nerves II-XII grossly intact. Motor strength 5/5 in all extremities. Sensory grossly intact. Cerebellar exam normal. Normal gait. Psych: Awake, alert, with orientation to person, place and time. Behavior, mood, and affect are within normal limits. 15:40 Abdomen/GI: Inspection: abdomen appears normal, Bowel sounds: normal, Palpation: abdomen is soft and non-tender, Liver: no appreciated palpable abnormalities, Hernia: not appreciated. Vital Signs: 13:13 BP 103 / 54; Pulse 100; Resp 15; Temp 97.1; Pulse Ox 99% ; Weight 90.72 kg; la1 14:28 BP 96 / 58; Pulse 62; Resp 14; Pulse Ox 99% ; bp 15:30 BP 101 / 53; Pulse 59; Resp 14; Pulse Ox 100% ; bp 16:30 BP 138 / 64; Pulse 64; Resp 17; Pulse Ox 100% ; bp 17:30 BP 152 / 52; Pulse 57; Resp 16; Pulse Ox 100% ; bp 18:30 BP 121 / 65; Pulse 57; Resp 16; Pulse Ox 100% ; bp 20:00 BP 141 / 119; Pulse 59; Resp 18; Pulse Ox 100% ; wh 21:10 BP 158 / 59; Pulse 59; Resp 18; Pulse Ox 100% ; wh MDM: 13:23 Patient medically screened. [facility] 15:43 Data reviewed: vital signs, nurses notes, lab test result(s), EKG, radiologic studies, [facility] CT scan, plain films. 02/22 13:24 Order name: Basic Metabolic Panel; Complete Time: 15:37 [facility] 02/22 13:24 Order name: CBC with Diff; Complete Time: 15:37 [facility] 02/22 13:24 Order name: LFT's; Complete Time: 15:37 [facility] 02/22 13:24 Order name: Magnesium; Complete Time: 15:37 [facility] 02/22 13:24 Order name: NT PRO-BNP; Complete Time: 15:37 [facility] 02/22 13:24 Order name: PT-INR; Complete Time: 15:37 [facility] 02/22 13:24 Order name: Troponin (emerg Dept Use Only); Complete Time: 15:37 [facility] 02/22 13:24 Order name: XRAY Chest (1 view); Complete Time: 15:37 [facility] 02/22 13:24 Order name: Lipase; Complete Time: 15:37 [facility] 02/22 13:24 Order name: Urine Culture [facility] 02/22 15:39 Order name: CT Traumagram (Head C Spine CAP W Con); Complete Time: 16:41 [facility] 02/22 19:56 Order name: Urine Dipstick--Ancillary (enter results) [facility] 02/22 20:16 Order name: Urine Dipstick-Ancillary [facility] 02/22 13:24 Order name: EKG; Complete Time: 13:25 [facility] 02/22 13:24 Order name: Cardiac monitoring; Complete Time: 13:39 [facility] 02/22 13:24 Order name: EKG - Nurse/Tech; Complete Time: 14:03 [facility] 02/22 13:24 Order name: IV Saline Lock; Complete Time: 14:03 [facility] 02/22 13:24 Order name: Labs collected and sent; Complete Time: 14:03 [facility] 02/22 13:24 Order name: O2 Per Protocol; Complete Time: 13:38 [facility] 02/22 13:24 Order name: O2 Sat Monitoring; Complete Time: 13:38 [facility] 02/22 13:24 Order name: Urine Dipstick-Ancillary (obtain specimen); Complete Time: 19:55 [facility] Administered Medications: 15:55 Drug: NS 0.9% 1000 ml Route: IV; Rate: 1000 ml; Site: right antecubital; bp 17:20 Follow up: IV Status: Completed infusion; IV Intake: 1000ml bp 15:55 Drug: NS 0.9% 1000 ml Route: IV; Rate: 1000 ml; Site: right antecubital; bp 19:55 Follow up: Response: No adverse reaction; IV Status: Completed infusion bp 15:55 Drug: NS 0.9% with KCl 20 mEq/L 1000 ml Route: IV; Rate: 125 ml/hr; Site: right bp antecubital; 19:56 Follow up: Response: No adverse reaction; IV Status: Infusion continued upon admission bp 15:55 Drug: Pepcid 20 mg Route: IVP; Site: right antecubital; bp 17:20 Follow up: Response: No adverse reaction bp 16:45 Drug: Potassium Effervescent Tablet 25 mEq Route: PO; bp 17:20 Follow up: Response: No adverse reaction bp Disposition: 02/22/19 15:48 Hospitalization ordered by Maverick Duval for Inpatient Admission. Preliminary diagnosis are Weakness, Type 1 diabetes mellitus, Hypokalemia, Volume depletion, Fall due to bumping against object, Blindness, both eyes. - Bed requested for Telemetry/MedSurg (Inpatient). - Status is Inpatient Admission. - Condition is Fair. - Problem is new. - Symptoms have improved. UTI on Admission? No Signatures: Dispatcher [employer] EDMS Lavonne Duarte Corey, MD MD cha Attema, Isra, RN RN [address] [facility] Adan Jalloh RN RN bp Corrections: (The following items were deleted from the chart) 18:46 15:48 Hospitalization Ordered by Maverick Duval DO for Inpatient Admission. Preliminary bd diagnosis is Weakness; Type 1 diabetes mellitus; Hypokalemia; Volume depletion; Fall due to bumping against object; Blindness, both eyes. Bed requested for Telemetry/MedSurg (Inpatient). Status is Inpatient Admission. Condition is Fair. Problem is new. Symptoms have improved. UTI on Admission? No. yonis 21:13 18:46 02/22/2019 15:48 Hospitalization Ordered by Maverick Duval DO for Inpatient Admission. Preliminary diagnosis is Weakness; Type 1 diabetes mellitus; Hypokalemia; Volume depletion; Fall due to bumping against object; Blindness, both eyes. Bed requested for Telemetry/MedSurg (Inpatient). Status is Inpatient Admission. Condition is Fair. Problem is new. Symptoms have improved. UTI on Admission? No. bd
--- NOTE | 2019-02-22 15:49 | ER ---
Nurse's Notes [facility] Name: Leydi Guerrier Age: 73 yrs Sex: Female : 1945 Arrival Date: 02/22/2019 Time: 13:02 Bed 19 Private MD: Diagnosis: Weakness;Type 1 diabetes mellitus;Hypokalemia;Volume depletion;Fall due to bumping against object;Blindness, both eyes Presentation: 02/22 13:07 Presenting complaint: EMS states: GENERALIZED WEAKNESS. Transition of care: patient was la1 not received from another setting of care. Onset of symptoms is unknown. Risk Assessment: Do you want to hurt yourself or someone else? Patient reports no desire to harm self or others. Initial Sepsis Screen: Does the patient meet any 2 criteria? No. Patient's initial sepsis screen is negative. Does the patient have a suspected source of infection? No. Patient's initial sepsis screen is negative. Care prior to arrival: Glucose check: 129. 13:07 Method Of Arrival: EMS: [facility] la1 13:07 Acuity: ADY 2 la1 Triage Assessment: 13:12 General: Appears in no apparent distress. comfortable, Behavior is calm, cooperative, la1 appropriate for age, drowsy. Pain: Complains of pain in face. EENT: No deficits noted. Neuro: Level of Consciousness is awake, alert, obeys commands, Oriented to person, place, time, situation, Appropriate for age Reports weakness GENERALIZED. Cardiovascular: No deficits noted. Respiratory: No deficits noted. GI: No signs and/or symptoms were reported involving the gastrointestinal system. : No signs and/or symptoms were reported regarding the genitourinary system. Derm: No deficits noted. Musculoskeletal: No deficits noted. Historical: - Allergies: 13:12 Morphine; la1 - Home Meds: 13:12 Hilda Oral [Active]; atorvastatin Oral [Active]; simvastatin 20 mg Oral tab 1 tab la1 once daily for Mixed Hyperlipidemia [Active]; Protonix 40 mg Oral TbEC 1 tab once daily [Active]; pregabalin 75 MG Oral 1 cap 2 times per day [Active]; Plavix 75 mg Oral tab 1 tab once daily for Myocardial Reinfarction Prevention [Active]; oxybutynin chloride 10 mg Oral tr24 1 tab once daily [Active]; metformin 500 mg Oral tab 1 tab 2 times per day for Type 2 Diabetes Mellitus [Active]; lisinopril 10 mg Oral tab 1 tab once daily [Active]; gabapentin Oral [Active]; Glipizide Oral [Active]; Iron CR Oral [Active]; Januvia Oral [Active]; Lyrica Oral [Active]; Naproxen Oral [Active]; Protonix Oral [Active]; RESTASIS [Active]; - PMHx: 13:12 CAD; COLON CA; CVA; Diabetes - IDDM; Glaucoma; High Cholesterol; Hypertension; legally la1 blind; - Immunization history:: Adult Immunizations up to date. - Social history:: Smoking status: Patient/guardian denies using tobacco. - Ebola Screening: : No symptoms or risks identified at this time. - Family history:: not pertinent. Screenin:14 Abuse screen: Denies threats or abuse. Denies injuries from another. Nutritional la1 screening: No deficits noted. Tuberculosis screening: No symptoms or risk factors identified. Fall Risk No fall in past 12 months (0 pts). Secondary diagnosis (15 points) CVA, No IV (0 pts). Ambulatory Aid- Crutches/Cane/Walker (15 pts). Gait- Weak (10 pts.). Mental Status- Oriented to own ability (0 pts). Total Esparza Fall Scale indicates Low Risk Score (25-44 pts). Fall prevention measures have been instituted. Side Rails Up X 2 Placed close to Nursing Station Frequent Obs/Assesments occuring As available Patient and Family Educated on Fall Prevention Program and strategies. Assessment: 13:14 General: SEE TRIAGE NOTE. la1 15:00 Reassessment: PT ATTEMPTED TO USE B/S COMMODE, UNABLE TO URINATE. bp 16:26 Reassessment: DR BRIGHT AT B/S FOR ADMIT. bp 17:50 Reassessment: assisted patient to bedside commode with Adan Osuna RN. Pt tolerated well, ss is now back in bed on bedside commode. 19:30 Reassessment: Patient appears in no apparent distress at this time. Patient and/or wh family updated on plan of care and expected duration. Pain level reassessed. Patient is alert, oriented x 3, equal unlabored respirations, skin warm/dry/pink. Patient denies pain at this time. 21:10 Reassessment: Patient appears in no apparent distress at this time. No changes from previously documented assessment. Patient and/or family updated on plan of care and expected duration. Pain level reassessed. Patient is alert, oriented x 3, equal unlabored respirations, skin warm/dry/pink. Vital Signs: 13:13 BP 103 / 54; Pulse 100; Resp 15; Temp 97.1; Pulse Ox 99% ; Weight 90.72 kg; la1 14:28 BP 96 / 58; Pulse 62; Resp 14; Pulse Ox 99% ; bp 15:30 BP 101 / 53; Pulse 59; Resp 14; Pulse Ox 100% ; bp 16:30 BP 138 / 64; Pulse 64; Resp 17; Pulse Ox 100% ; bp 17:30 BP 152 / 52; Pulse 57; Resp 16; Pulse Ox 100% ; bp 18:30 BP 121 / 65; Pulse 57; Resp 16; Pulse Ox 100% ; bp 20:00 BP 141 / 119; Pulse 59; Resp 18; Pulse Ox 100% ; wh 21:10 BP 158 / 59; Pulse 59; Resp 18; Pulse Ox 100% ; ED Course: 13:02 Patient arrived in ED. la1 13:08 Triage completed. la1 13:13 Arm band placed on. la1 13:14 Patient has correct armband on for positive identification. Bed in low position. Call la1 light in reach. Side rails up X2. 13:23 Gopi Pittman MD is Attending Physician. yonis 13:37 Isra Bernal, RN is Primary Nurse. la1 13:45 Inserted saline lock: 22 gauge in right antecubital area, using aseptic technique. la1 Blood collected. 13:52 X-ray completed. Portable x-ray completed in exam room. Patient tolerated procedure jb2 well. 14:13 XRAY Chest (1 view) In Process Unspecified. EDMS 15:47 Maverick Bright DO is Hospitalizing Provider. yonis 16:13 CT Traumagram (Head C Spine CAP W Con) In Process Unspecified. EDMS 21:12 No provider procedures requiring assistance completed. Patient admitted, IV remains in place. Administered Medications: 15:55 Drug: NS 0.9% 1000 ml Route: IV; Rate: 1000 ml; Site: right antecubital; bp 17:20 Follow up: IV Status: Completed infusion; IV Intake: 1000ml bp 15:55 Drug: NS 0.9% 1000 ml Route: IV; Rate: 1000 ml; Site: right antecubital; bp 19:55 Follow up: Response: No adverse reaction; IV Status: Completed infusion bp 15:55 Drug: NS 0.9% with KCl 20 mEq/L 1000 ml Route: IV; Rate: 125 ml/hr; Site: right bp antecubital; 19:56 Follow up: Response: No adverse reaction; IV Status: Infusion continued upon admission bp 15:55 Drug: Pepcid 20 mg Route: IVP; Site: right antecubital; bp 17:20 Follow up: Response: No adverse reaction bp 16:45 Drug: Potassium Effervescent Tablet 25 mEq Route: PO; bp 17:20 Follow up: Response: No adverse reaction bp Intake: 17:20 IV: 1000ml; Total: 1000ml. bp Outcome: 15:48 Decision to Hospitalize by Provider. yonis 21:12 Admitted to Tele accompanied by nurse, family with patient, via stretcher, room 408, with chart, Report called to Trudy WOLFE 21:12 Condition: stable 21:12 Instructed on the need for admit. 21:13 Patient left the ED. Signatures: Dispatcher [employer] Gopi Brady MD MD cha Buechter, Jesse jb2 Smirch, Shelby, RN RN Isra Adan RN RN la1 Habalo, Winsy wh Peltier, Brian RN RN bp
[2019-02-22] MEDS ORDERED: FAMOTIDINE 20 MG/2 ML VIAL IV ONE (16:02)
[2019-02-22] MEDS ORDERED: NA CHLORIDE 0.9% 2,000 ML ONE (16:02)
[2019-02-22] MEDS ORDERED: NS KCL 20MEQ 1,000 ML IV ONE (16:02)
--- NOTE | 2019-02-22 16:29 | EKG ---
Test Date: 2019-02-22 Test Time: 14:03:29 Services Program Manager: SRAVANI MEASUREMENT RESULTS: Intervals: Rate: 61 MI: 164 QRSD: 102 QT: 442 QTc: 444 [place]: P: 30 MI: 164 QRS: -46 T: 2 INTERPRETIVE STATEMENTS: Normal sinus rhythm Left anterior fascicular block Cannot rule out Anterior infarct, age undetermined Abnormal ECG Compared to ECG 01/24/2019 16:48:10 Left anterior fascicular block now present Myocardial infarct finding now present Left-axis deviation no longer present Electronically Signed On 02-22-19 16:29:30 OPERATIONS SUPPORT MANAGER by Rolf Moulton
--- NOTE | 2019-02-22 16:35 | RAD REPORT ---
EXAM DESCRIPTION: CT - Head C Spine Cap Addison Crawford - 02/22/2019 4:12 pm CLINICAL HISTORY: Trauma, head and neck injury. Chest, abdomen and pelvis pain. PAIN COMPARISON: No comparisons TECHNIQUE: CT head without contrast. CT cervical spine without contrast with coronal and sagittal reformatted images. CT chest, abdomen and pelvis with IV contrast (approximately 100 mL nonionic IV contrast) with goodman l and sagittal reformatted images of the spine. All CT scans are performed using dose optimization technique as appropriate and may include automated exposure control or mA/KV adjustment according to patient size. FINDINGS: CT HEAD WITHOUT CONTRAST: No intracranial hemorrhage, hydrocephalus or extra-axial fluid collection. Mild generalized brain atr ophy is present with mild periventricular and deep white matter chronic microvascular ischemic change s. No areas of brain edema or midline shift. The paranasal sinuses and mastoids are clear. The calvarium is intact. CT CERVICAL SPINE WITHOUT CONTRAST: No fracture or subluxation. The prevertebral soft tissues are normal in thickness. CT CHEST, ABDOMEN, PELVIS WITH CONTRAST: The lungs are clear.Cholecystectomy clips.No pneumothorax or pericardial/pleural fluid. No evidence of intra-abdominal visceral injury, free fluid or free air. No concerning pelvic findings. No fractures. IMPRESSION: Negative for acute traumatic findings.
--- NOTE | 2019-02-22 16:56 | P.HP ---
Certification for Inpatient Patient admitted to: Observation With expected LOS: <2 Midnights Patient will require the following post-hospital care: Home Health Services Practitioner: I am a practitioner with admitting privileges, knowledge of patient current condition, hospital course, and medical plan of care. Services: Services provided to patient in accordance with Admission requirements found in Title 42 Section 412.3 of the Code of Federal Regulations Patient History Date of Service: 02/22/19 Primary Care Provider: Dr. Henderson [facility] Reason for admission: Weakness, fall History of Present Illness: 73-year-old female with multiple medical problems including diabetes, hypertension, CAD, prior CVA and she is legally blind. Patient came to the ER due to increased fatigue and fall at home. Patient is a poor her story in. Some information came from the son. ER reports the patient fell at home to the right side. She did not have any presyncope or syncopal episode. She denies any chest pain, shortness of breath, she denies any fever, chills. Son reports that the patient was in the ER about 2 weeks ago. She was hospitalized at a long-term acute care facility due to her chronic osteomyelitis. She was then transition to [facility] due to vaginal bleeding. She has an appointment to see gynecology here soon. In the ER patient was evaluated. Blood pressure slightly low. Vital signs stable. Chest x-ray unremarkable. CT head, chest, abdomen unremarkable for any acute findings. On lab white count 4.9, hemoglobin 10.0. Platelet count 180. Sodium 145, potassium 3.3. BUN of 16, creatinine 0.8 with a GFR 63. Glucose 150. Troponin unremarkable. Patient was given IV fluid in the emergency room. Patient admitted for observation. When I saw the patient ER, she appeared comfortable. She did not appear in any distress. Family not at bedside but I did speak to the son by phone. Patient reports poor oral intake. Patient has home health at home. She has chronic wounds to the right foot that is being managed by home health. Patient is to follow up in [place] for this but prefers to be evaluated and treated locally. He is needing help to arrange for wound care at local center. Allergies morphine Adverse Reaction (Unknown, Verified 10/19/18 16:16) unknown Home medications list reviewed: Yes Home Medications: Atorvastatin Calcium 20 mg PO BEDTIME 06/25/18 Sitagliptin Phosphate [Januvia] 25 mg PO DAILY 06/25/18 Pantoprazole [Protonix Tab*] 40 mg PO DAILY #30 tab 06/29/18 Cyclosporine [Restasis] 1 drop EACH EYE DAILY 10/02/18 Rivaroxaban [Xarelto] 20 mg PO BEDTIME 10/02/18 Ferrous Fumarate/Docusate Na [Shahid-Dss Capsule] 1 each PO BID 12/02/18 Fexofenadine HCl 180 mg PO DAILY 12/02/18 Glipizide [Glipizide ER] 10 mg PO BID 12/02/18 Naproxen Sodium [Naproxen Sodium Cr] 375 mg PO BID 12/02/18 Pregabalin [Lyrica] 300 mg PO BID 12/02/18 Repaglinide [Prandin] 0.5 mg PO BID 12/02/18 Repaglinide [Prandin] 1 mg PO BID PRN 12/02/18 - Past Medical/Surgical History Diabetic: Yes -: Diabetic neuropathy -: CAD -: Diabetes mellitus type 2 dov-wesnlej-ljnynwqlx -: Glaucoma -: Hyperlipidemia -: Obesity -: Recurrent UTI -: PVD -: Previous amputation of the great toe left -: Chronic osteomyelitis right 5th digit -: Cardiac stent -: Appendectomy -: boil lower back -: hysterectomy -: cj cataracts sx -: Jessy -: L big toe amputation Psychosocial/ Personal History: Lives at home with poor family support. - Family History Father -: Heart disease Notes: heart attack. Mother -: Diabetes, Other (see notes) Notes: . Alzheimer's - Social History Smoking Status: Never smoker Alcohol use: No CD- Drugs: No Caffeine use: Yes Place of Residence: Home Review of Systems General: Weakness, As per HPI Eyes: Unremarkable ENT: Unremarkable Respiratory: Unremarkable Cardiovascular: Unremarkable Gastrointestinal: Unremarkable Genitourinary: Unremarkable Musculoskeletal: Unremarkable Integumentary: As per HPI Neurological: Weakness, As per HPI Lymphatics: Unremarkable Physical Examination - Physical Exam General: Alert, In no apparent distress, Oriented x3, Cooperative HEENT: Atraumatic, Other (Patient is legally blind) Neck: Supple Respiratory: Clear to auscultation bilaterally, Normal air movement Cardiovascular: Normal pulses, Regular rate/rhythm Gastrointestinal: Normal bowel sounds, Soft and benign, Non-distended, No masses , No rebound, No guarding Musculoskeletal: No tenderness, No warmth Integumentary: Other (Chronic wound to the right 5th digit. Dressing in place to the right foot) Neurological: Normal speech, Normal strength at 5/5 x4 extr, Normal tone, Normal affect - Studies Laboratory Data (last 24 hrs) 02/22/19 14:23: PT 29.7 H, INR 2.61 02/22/19 13:45: WBC 4.9, Hgb 10.0 L, Hct 29.6 L, Plt Count 180 02/22/19 13:45: Sodium 145, Potassium 3.3 L, BUN 16, Creatinine 0.88, Glucose 150 H, Magnesium 1.9, Total Bilirubin 0.3, AST 19, ALT 19, Alkaline Phosphatase 58, Lipase 56 L Assessment and Plan - Plan Impression: Fall, weakness likely mild dehydration Diabetes mellitus type 2 [id number]-[id number] Hypertension Hyperlipidemia CAD Chronic osteomyelitis of the right 5th digit Anemia of chronic disease Plan: Fall, weakness likely mild dehydration: Patient will be admitted for further evaluation and observation. CT scan unremarkable. Will have physical therapy assess ambulation. Will hydrate with IV fluids. Will monitor closely. Anticipate discharge tomorrow with home health and physical therapy to be continued. Fall precautions in place. DVT prophylaxis in place at this time. Will consult criminal justice social worker to help with continuation of services. I will turn the service over to Dr. Molina tomorrow. I will go over the plan of care with her. Diabetes mellitus type 2 [id number]: Will continue with metformin. Will provide insulin sliding scale. Monitor Accu-Cheks. Hypertension: Blood pressure is low likely from dehydration. Will hold lisinopril 10 mg. May need to continued to hold medication at discharge. Hyperlipidemia: Continue home medication-Zocor. CAD: Continue home medication-Plavix. Chronic osteomyelitis of the right 5th digit: Will consult wound care to further evaluate and treat. Family needs help to make arrangements for follow up [facility] to continue her care. Patient recently hospitalized at at long-term acute care facility. Will have criminal justice social worker address this in detail prior to discharge. Anemia of chronic disease: Continue monitor closely. Discharge Plan: Home Plan to discharge in: 24 Hours - Advance Directives Does patient have a Living Will: No Does patient have a Durable POA for Healthcare: No - Code Status/Comfort Care Code Status Assessed: No (This was not assessed.) Time Spent Managing Pts Care (In Minutes): 55
[2019-02-22] MEDS ORDERED: POTASSIUM 25 MEQ EFFERV TAB ONE (18:33)
[2019-02-22 20:16] LABS: Urine Blood 3+ (NEG); Urine Glucose TRACE (NEG); Urine Protein NEGATIVE (NEG); Urine pH 5.5 (5.0-7.0)
[2019-02-22] MEDS ORDERED: ONDANSETRON 4 MG/2 ML VIAL IV PRN (21:31)
[2019-02-22] MEDS ORDERED: ACETAMINOPHEN 500 MG TAB PO PRN (21:31)
[2019-02-22] MEDS: PREGABALIN 75 MG CAP PO SCH ×2 (21:31→23:37)
[2019-02-22] MEDS: INSULIN -REGULAR HUMAN 50 UNIT/0.5 ML ML SQ SCH (21:31)
[2019-02-22] MEDS: METFORMIN HCL 500 MG TAB PO SCH ×2 (21:31→23:37)
[2019-02-22] MEDS: ATORVASTATIN 10 MG TAB PO SCH ×2 (21:31→23:37)
[2019-02-22] MEDS: NACHLORIDE 0.45% 1,000 ML IV SCH ×2 (21:31→23:38)
[2019-02-22 21:58] VITALS: BMI 30.1
[2019-02-23 04:24] LABS: Absolute Lymphocytes (CBC) 1.5 K/uL (0.7-4.9); Basophils % 2.2 % (0-1.3); Hematocrit 28.5 % (36.0-45.0); Lymphocytes % 24.9 % (15.3-44.8); MPV 9.1 fL (7.6-11.3); RBC Red Blood Cell Count 3.37 M/uL (3.86-4.86)
[2019-02-23 04:41] LABS: BUN Blood Urea Nitrogen 10 mg/dL (7-18); Bicarbonate 24 mmol/L (21-32); Glucose Level 120 mg/dL (74-106); Magnesium 1.6 mg/dL (1.8-2.4); Potassium 3.1 mmol/L (3.5-5.1); Sodium Level 145 mmol/L (136-145)
[2019-02-23] MEDS ORDERED: PANTOPRAZOLE 40MG TABLET PO SCH (06:30)
[2019-02-23] MEDS: INSULIN -REGULAR HUMAN 50 UNIT/0.5 ML ML SQ SCH ×4 (07:30→21:00)
[2019-02-23] MEDS ORDERED: MAGNESIUM SULFATE 1 gm IVPB 1 GM/100 ML BAG IV ONE (08:00)
[2019-02-23] MEDS ORDERED: POTASSIUM 25 MEQ EFFERV TAB PO ONE ×2 (08:00→20:02)
[2019-02-23] MEDS: PREGABALIN 75 MG CAP PO SCH ×2 (08:18→21:35)
[2019-02-23] MEDS: METFORMIN HCL 500 MG TAB PO SCH ×3 (08:19→18:42)
[2019-02-23] MEDS ORDERED: CLOPIDOGREL 75 MG TABLET PO SCH (09:00)
[2019-02-23] MEDS ORDERED: MULTIVITAMIN TAB PO SCH (09:00)
[2019-02-23] MEDS ORDERED: OXYBUTYNIN ER 5 MG TAB PO SCH (09:00)
[2019-02-23] MEDS ORDERED: ENOXAPARIN 40 MG/0.4 ML SQ SCH (09:00)
[2019-02-23] MEDS: PIPER/TAZO/NS 3.375gm 3.375 GM/100 ML BAG IVPB SCH ×2 (10:34→16:18)
[2019-02-23] MEDS ORDERED: VANCOMYCIN 1.75 GM in NA CHLORIDE 0.9% 500 ML IVPB ONE (11:00)
[2019-02-23] MEDS ORDERED: ACETAMINOPHEN 500 MG TAB PO PRN ×2 (12:23→17:55)
[2019-02-23] MEDS ORDERED: ONDANSETRON 4 MG/2 ML VIAL IV PRN ×2 (12:23→17:55)
--- NOTE | 2019-02-23 15:41 | P.PN ---
Subjective Date of Service: 02/23/19 Primary Care Provider: Dr. Henderson [facility] Chief Complaint: Weakness, fall Patient seen and examined at bedside with RN. Chart reviewed. Case discussed with consult. No complaints to offer overnight. Review of Systems 10-point ROS is otherwise unremarkable Physical Examination - Vital Signs Temperature: 97.7 F Blood Pressure: 160/71 Pulse: 67 Respirations: 17 Pulse Ox (%): 99 - Physical Exam General: Alert, In no apparent distress HEENT: Atraumatic, PERRLA, EOMI Neck: Supple, JVD not distended Respiratory: Clear to auscultation bilaterally, Normal air movement Cardiovascular: Regular rate/rhythm, Normal S1 S2 Gastrointestinal: Normal bowel sounds, No tenderness Musculoskeletal: Erythema, Tenderness, Warmth Integumentary: No rashes, Pressure ulcer Neurological: Normal speech, Normal tone, Normal affect Lymphatics: No axilla or inguinal lymphadenopathy - Studies Medications List Reviewed: Yes Assessment And Plan - Current Problems (Diagnosis) (1) Acute osteomyelitis Current Visit: Yes Status: Acute Plan: Acute osteomyelitis of the left foot -MRI on 02/04/2019 consistent with Osteomyelitis fifth proximal phalanx, fifth middle phalanx and fifth distal phalanx -patient was recently seen at the wound healing center and was asked to go to a 10 where her primary care doctor is to be set up with IV antibiotics however patient did not follow up and was never treated for her osteomyelitis. Patient went home and had a fall and thus decided to come back to the ER here. -will get PICC line placed at this time patient will require long-term IV antibiotics. -if needed will consult infectious disease for placement -wound culture and blood culture pending at this time (2) PAD (peripheral artery disease) Current Visit: No Status: Chronic (3) Diabetes mellitus type II, uncontrolled Onset Date: 10/20/15 Current Visit: No Status: Chronic Qualifiers: Glycemic state: with hyperglycemia Qualified Code(s): E11.65 - Type 2 diabetes mellitus with hyperglycemia (4) GERD (gastroesophageal reflux disease) Current Visit: No Status: Chronic Qualifiers: Esophagitis presence: esophagitis presence not specified Qualified Code(s) : K21.9 - Gastro-esophageal reflux disease without esophagitis (5) Hypertension Current Visit: No Status: Chronic Qualifiers: Hypertension type: essential hypertension Qualified Code(s): I10 - Essential (primary) hypertension (6) Legally blind Current Visit: No Status: Chronic (7) Dementia Current Visit: No Status: Suspected Qualifiers: Dementia type: unspecified type Dementia behavioral disturbance: without behavioral disturbance Qualified Code(s): F03.90 - Unspecified dementia without behavioral disturbance - Plan Pending clinical improvement at this time. Will continue with IV antibiotics here in the hospital. Will have patient work with PTOT here in the hospital as well. Discharge Plan: Other Plan to discharge in: Greater than 2 days - Code Status/Comfort Care Code Status Assessed: Yes Critical Care: No
[2019-02-23] MEDS: NACHLORIDE 0.45% 1,000 ML IV SCH (18:00)
[2019-02-23] MEDS ORDERED: ATORVASTATIN 10 MG TAB PO SCH (21:00)
[2019-02-23] MEDS ORDERED: JUVEN PACKET PO SCH (21:00)
[2019-02-23] MEDS: JUVEN PACKET PO SCH (21:34)
[2019-02-23 22:39] VITALS: O2SAT 98
[2019-02-24] MEDS: PIPER/TAZO/NS 3.375gm 3.375 GM/100 ML BAG IVPB SCH ×3 (01:01→17:00)
[2019-02-24 04:39] LABS: BUN Blood Urea Nitrogen 5 mg/dL (7-18); Bicarbonate 26 mmol/L (21-32); Glucose Level 91 mg/dL (74-106); Magnesium 1.7 mg/dL (1.8-2.4); Potassium 3.2 mmol/L (3.5-5.1); Sodium Level 144 mmol/L (136-145)
[2019-02-24] MEDS ORDERED: VANCOMYCIN 1.25 GM in NA CHLORIDE 0.9% 250 ML IVPB SCH (05:00)
[2019-02-24 05:09] VITALS: BP 130/72; TEMP 97.6
[2019-02-24] MEDS: NACHLORIDE 0.45% 1,000 ML IV SCH ×2 (05:25→14:00)
[2019-02-24] MEDS: PANTOPRAZOLE 40MG TABLET PO SCH ×2 (05:38→06:30)
[2019-02-24] MEDS ORDERED: POTASSIUM CL SA 10 MEQ TAB PO ONE (06:00)
[2019-02-24] MEDS ORDERED: MAGNESIUM SULFATE 1 gm IVPB 1 GM/100 ML BAG IV ONE (06:00)
[2019-02-24] MEDS: INSULIN -REGULAR HUMAN 50 UNIT/0.5 ML ML SQ SCH ×3 (07:30→16:30)
[2019-02-24] MEDS: METFORMIN HCL 500 MG TAB PO SCH ×2 (08:00→17:00)
[2019-02-24] MEDS ORDERED: CLOPIDOGREL 75 MG TABLET PO SCH (09:00)
[2019-02-24] MEDS ORDERED: MULTIVITAMIN TAB PO SCH (09:00)
[2019-02-24] MEDS ORDERED: OXYBUTYNIN ER 5 MG TAB PO SCH (09:00)
[2019-02-24] MEDS: JUVEN PACKET PO SCH (09:00)
[2019-02-24] MEDS: PREGABALIN 75 MG CAP PO SCH (09:00)
[2019-02-24] MEDS ORDERED: ENOXAPARIN 40 MG/0.4 ML SQ SCH (09:00)
--- NOTE | 2019-02-24 17:44 | P.PN ---
Subjective Date of Service: 02/24/19 Primary Care Provider: Dr. Henderson [facility] Chief Complaint: Weakness, fall Patient seen and examined at bedside with RN. Chart reviewed. Case discussed with consult. Pt refusing all care this AM. Has been wanting to leave AMA. Currently is AAOx3. Had an extensive Discussion at bedside regarding plan of care and need to stay in hospital, However still wants to leave AMA> family made aware. Review of Systems 10-point ROS is otherwise unremarkable Physical Examination - Vital Signs Temperature: 97.6 F Blood Pressure: 130/72 Pulse: 76 Respirations: 16 Pulse Ox (%): 98 - Physical Exam General: Alert, In no apparent distress, Oriented x3 HEENT: Atraumatic, PERRLA, EOMI Neck: Supple, JVD not distended Respiratory: Clear to auscultation bilaterally, Normal air movement Cardiovascular: Regular rate/rhythm, Normal S1 S2 Gastrointestinal: Normal bowel sounds, No tenderness Musculoskeletal: Erythema, Tenderness, Warmth Integumentary: No rashes Neurological: Normal speech, Normal tone, Normal affect Lymphatics: No axilla or inguinal lymphadenopathy - Studies Medications List Reviewed: Yes Assessment And Plan - Current Problems (Diagnosis) (1) Acute osteomyelitis Current Visit: Yes Status: Acute Plan: Acute osteomyelitis of the left foot -MRI on 02/04/2019 consistent with Osteomyelitis fifth proximal phalanx, fifth middle phalanx and fifth distal phalanx -patient was recently seen at the wound healing center and was asked to go to [facility] where her primary care doctor is to be set up with IV antibiotics however patient did not follow up and was never treated for her osteomyelitis. Patient went home and had a fall and thus decided to come back to the ER here. -Refusing PICC line today and IV abx today -wound culture and blood culture pending at this time -Wants to leave AMA. (2) UTI (urinary tract infection) Onset Date: 04/24/16 Current Visit: No Status: Suspected Plan: UA with UTI -Urine culture pending -On IV abx. Qualifiers: Urinary tract infection type: acute cystitis Hematuria presence: without hematuria Qualified Code(s): N30.00 - Acute cystitis without hematuria (3) PAD (peripheral artery disease) Current Visit: No Status: Chronic (4) Diabetes mellitus type II, uncontrolled Onset Date: 10/20/15 Current Visit: No Status: Chronic Qualifiers: Glycemic state: with hyperglycemia Qualified Code(s): E11.65 - Type 2 diabetes mellitus with hyperglycemia (5) GERD (gastroesophageal reflux disease) Current Visit: No Status: Chronic Qualifiers: Esophagitis presence: esophagitis presence not specified Qualified Code(s) : K21.9 - Gastro-esophageal reflux disease without esophagitis (6) Hypertension Current Visit: No Status: Chronic Qualifiers: Hypertension type: essential hypertension Qualified Code(s): I10 - Essential (primary) hypertension (7) Legally blind Current Visit: No Status: Chronic (8) Dementia Current Visit: No Status: Suspected Qualifiers: Dementia type: unspecified type Dementia behavioral disturbance: without behavioral disturbance Qualified Code(s): F03.90 - Unspecified dementia without behavioral disturbance - Plan Pending clinical improvement at this time. Will continue with IV antibiotics here in the hospital. Will have patient work with PTOT here in the hospital as well.
--- NOTE | 2019-03-01 15:21 | P.DS ---
Admission Date: 02/22/19 Discharge Date: 03/01/19 Primary Care Provider: Dr. Henderson [facility] Disposition: AMA-LEFT AGAINST MEDICAL ADVIC Reason for Admission: Weakness, fall - Problems (1) Acute osteomyelitis Status: Acute (2) UTI (urinary tract infection) Onset Date: 04/24/16 Status: Suspected Qualifiers: Urinary tract infection type: acute cystitis Hematuria presence: without hematuria Qualified Code(s): N30.00 - Acute cystitis without hematuria (3) PAD (peripheral artery disease) Status: Chronic (4) Diabetes mellitus type II, uncontrolled Onset Date: 10/20/15 Status: Chronic Qualifiers: Glycemic state: with hyperglycemia Qualified Code(s): E11.65 - Type 2 diabetes mellitus with hyperglycemia (5) GERD (gastroesophageal reflux disease) Status: Chronic Qualifiers: Esophagitis presence: esophagitis presence not specified Qualified Code(s) : K21.9 - Gastro-esophageal reflux disease without esophagitis (6) Hypertension Status: Chronic Qualifiers: Hypertension type: essential hypertension Qualified Code(s): I10 - Essential (primary) hypertension (7) Legally blind Status: Chronic (8) Dementia Status: Suspected Qualifiers: Dementia type: unspecified type Dementia behavioral disturbance: without behavioral disturbance Qualified Code(s): F03.90 - Unspecified dementia without behavioral disturbance Brief History of Present Illness: See HPI Hospital Course: See PN from DC date. Pt was informed about the Urine Culture + for MRSA on 03/01/19 after being informed about it from [facility]. No one picked up the phone and msg left. Vital Signs/Physical Exam: Temp Pulse Resp BP Pulse Ox 97.6 F 76 16 130/72 98 02/24/19 17:43 02/24/19 17:43 02/24/19 17:43 02/24/19 17:43 02/24/19 17:43 Laboratory Data at Discharge: WBC 6.0 K/uL (4.3-10.9) D 02/23/19 03:56 Hgb 9.9 g/dL (12.0-15.0) L 02/23/19 03:56 Hct 28.5 % (36.0-45.0) L 02/23/19 03:56 Plt Count 169 K/uL (152-406) 02/23/19 03:56 PT 29.7 SECONDS (9.5-12.5) H 02/22/19 14:23 INR 2.61 02/22/19 14:23 Sodium 144 mmol/L (136-145) 02/24/19 03:58 Potassium 3.2 mmol/L (3.5-5.1) L 02/24/19 03:58 BUN 5 mg/dL (7-18) L 02/24/19 03:58 Creatinine 0.63 mg/dL (0.55-1.3) 02/24/19 03:58 Glucose 91 mg/dL (74-106) 02/24/19 03:58 Magnesium 1.7 mg/dL (1.8-2.4) L 02/24/19 03:58 Total Bilirubin 0.3 mg/dL (0.2-1.0) 02/22/19 13:45 AST 19 U/L (15-37) 02/22/19 13:45 ALT 19 U/L (12-78) 02/22/19 13:45 Alkaline Phosphatase 58 U/L (45-117) 02/22/19 13:45 Lipase 56 U/L (73-393) L 02/22/19 13:45 Home Medications: Atorvastatin Calcium 20 mg PO BEDTIME 06/25/18 Sitagliptin Phosphate [Januvia] 25 mg PO DAILY 06/25/18 Pantoprazole [Protonix Tab*] 40 mg PO DAILY #30 tab 06/29/18 Cyclosporine [Restasis] 1 drop EACH EYE DAILY 10/02/18 Glipizide [Glipizide ER] 2 tab PO BID 12/02/18 Pregabalin [Lyrica] 300 mg PO BID 12/02/18 Lisinopril 1 tab PO DAILY 02/23/19 Nitrofuran Macro [Macrobid*] 1 tab PO BID 02/23/19 Travoprost (Benzalkonium) [Travatan 0.004% Eye Drop] 1 gtt EACH EYE BEDTIME
== END 2019-02-24 18:24 | disposition left against medical advice (07) | DRG 540 ==
LOC: ER 12:52 → ERHOLD 16:41 → 4TH 16:41 → UNDOADMOB 16:41 → 4TH 20:42 → ERHOLD 20:42
PROVIDERS: ADMIT Family Medicine; ATTEND Family Medicine
DX: M86.172 Other acute osteomyelitis, left ankle and foot (principal); N30.00 Acute cystitis without hematuria; E86.0 Dehydration; E11.40 Type 2 diabetes mellitus with diabetic neuropathy, unspecified; I10 Essential (primary) hypertension; I25.10 Atherosclerotic heart disease of native coronary artery without angina pectoris; H54.8 Legal blindness, as defined in USA; H40.9 Unspecified glaucoma; E78.5 Hyperlipidemia, unspecified; D63.8 Anemia in other chronic diseases classified elsewhere; F03.90 Unspecified dementia, unspecified severity, without behavioral disturbance, psychotic disturbance, mood disturbance, and anxiety; Z86.73 Personal history of transient ischemic attack (TIA), and cerebral infarction without residual deficits
CPT/HCPCS: 36415; 70450; 71045; 71260; 72125; 74177; 80048; 80076; 81003; 82947; 83690; 83735; 83880; 84132; 84439; 84443; 84484; 85025; 85610; 87040; 87077; 87086; 87088; 87186; 93005; 96361; 96374; 97116; 97161; 97530; 99251; 99285; J1650; J2543; J3475; J7030; J7040; Q9967

== ENCOUNTER 2019-08-21 18:12 | Inpatient (IN) | payer OTHER ==
--- OUTSIDE RECORDS SUMMARY | 2019-08-21 18:15 | XMS REPORT | Clinical Summary ---
:1945 Author Organization [facility] [facility] [employer] Address [address] [place] [address] Care Team Providers Name Role Phone Asked, Pcp Primary Care Provider Unavailable Allergies Active [...] of 2 - PCV13) 2010 INFLUENZA VACCINE 10/30/2019 Results Not on fileafter 08/20/2018 Insurance Payer Benefit Plan / Subscriber ID Effective Dates Phone Addre ss Type Group MEDICARE MEDICARE PART A xxxxxxxxxx 2003-Present 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
--- OUTSIDE RECORDS SUMMARY | 2019-08-21 18:15 | XMS REPORT | Clinical Summary ---
:1945 Author Organization [facility] Address [address] [place] [address] Care Team Providers Name Role Phone Pcp, No Primary Care Provider Unavailable Allergies Active Allergy Reactions Severity Noted Date Comments Morphine Anxiety Low 02/17/2019 Medications Medication Sig Dispensed Refills Start Date End Date Status metroNIDAZOLE Take 500 mg by 0 A ctive (FLAGYL) 500 MG mouth every 8 tablet (eight) hours. ondansetron Take by mouth 0 Acti ve (ZOFRAN) 4 mg/5 mL once. solution acetaminophen Take 650 mg by 0 A ctive (TYLENOL) 325 MG mouth every 6 tablet (six) hours as needed for Pain. lisinopril Take 20 mg by 0 Disco ntinued (PRINIVIL,ZESTRIL) mouth daily. 9 20 MG tablet atorvastatin Take 10 mg by 0 Dis continued (LIPITOR) 10 MG mouth daily. 9 tablet SITagliptin Take 50 mg by 0 Disc ontinued (JANUVIA) 50 MG mouth daily. 9 tablet metFORMIN Take 500 mg by 0 Disco ntinued (GLUCOPHAGE) 500 MG mouth 2 (two) 9 tablet times daily with breakfast and dinner. levoFLOXacin Take 750 mg by 0 Di scontinued (LEVAQUIN) 750 MG mouth daily. 9 tablet famotidine (PEPCID) Take 20 mg by 0 Discontinued 20 MG tablet mouth 2 (two) 9 times daily. rivaroxaban Take by mouth 0 Disc ontinued (XARELTO) 20 mg Tab daily with 9 tablet dinner. Lactobacillus Take 1 tablet 0 Di scontinued acidoph-L.bulgar by mouth 2 9 (FLORANEX) 1 (two) times million cell Tab daily. per tablet aspirin 81 MG EC Take 81 mg by 0 Discontinued tablet mouth daily. 9 aspirin 81 MG EC Take 1 tablet 30 tablet 0 02/19/2019 03/21/20 1 tablet (81 mg total) 9 by mouth daily for 30 days. atorvastatin Take 1 tablet 30 tablet 0 02/19/2019 Ex pired (LIPITOR) 10 MG (10 mg total) 9 tablet by mouth daily for 30 days. famotidine (PEPCID) Take 1 tablet 60 tablet 0 02/19/201903/21 20 MG tablet (20 mg total) 9 by mouth 2 (two) times daily for 30 days. Lactobacillus Take 1 tablet 60 tablet 0 02/19/2019 E xpired acidoph-L.bulgar by mouth 2 9 (FLORANEX) 1 (two) times million cell Tab daily for 30 per tablet days. levoFLOXacin Take 1 tablet 10 tablet 0 02/19/2019 Ex pired (LEVAQUIN) 750 MG (750 mg total) 9 tablet by mouth daily for 10 days. lisinopril Take 1 tablet 30 tablet 0 02/19/2019 Expi red (PRINIVIL,ZESTRIL) (20 mg total) 9 20 MG tablet by mouth daily for 30 days. metFORMIN Take 1 tablet 60 tablet 0 02/19/2019 Expir ed (GLUCOPHAGE) 500 MG (500 mg total) 9 tablet by mouth 2 (two) times daily with breakfast and dinner for 30 days. rivaroxaban Take 1 tablet 30 tablet 0 02/19/2019 Exp ired (XARELTO) 20 mg Tab (20 mg total) 9 tablet by mouth daily with dinner for 30 days. SITagliptin Take 1 tablet 30 tablet 0 02/19/2019 Exp ired (JANUVIA) 50 MG (50 mg total) 9 tablet by mouth daily for 30 days. 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 Never 02/17/2019 How many drinks containing alcohol do you have on a typical Not asked day when you are drinking? How often do you have six or more drinks on one occasion? No t asked Sex Assigned at Date Recorded Not on file Job Start Date Occupation Industry Not on file Not on file Not on file Travel History Travel Start Travel End No recent travel history available. Last Filed Vital Signs Vital Sign Reading Time Taken Blood Pressure 149/62 02/19/2019 7:34 AM [employer] Pulse 80 02/19/2019 7:34 AM [employer] Temperature 36.5 C (97.7 F) 02/19/2019 7:34 AM [employer] Respiratory Rate 18 02/19/2019 7:34 AM [employer] Oxygen Saturation 99% 02/19/2019 7:34 AM [employer] Inhaled Oxygen Concentration - - Weight 72.1 kg (159 lb) 02/17/2019 5:11 PM [employer] Height 157.5 cm (5' 2") 02/17/2019 5:11 PM [employer] Body Mass Index 29.08 02/17/2019 5:11 PM [employer] Plan of Treatment Not on file Procedures Procedure Name Priority Date/Time Associated Comments Diagnosis RHYTHM STRIP - SCAN 02/23/2019 8:51 AM [employer] POCT-GLUCOSE METER Routine 02/19/2019 7:25 Resul ts for this AM [employer] procedure are i n the results section. XR CHEST 1 VIEW STAT 02/19/2019 12:06 Results for this PORTABLE/BEDSIDE AM [employer] procedure a re in the results section. POCT-GLUCOSE METER Routine 02/18/2019 11:30 Resul ts for this PM [employer] procedure are i n the results section. POCT-GLUCOSE METER Routine 02/18/2019 8:42 Resul ts for this AM [employer] procedure are i n the results section. CBC W/PLT COUNT & STAT 02/18/2019 4:18 Result s for this AUTO DIFFERENTIAL AM [employer] procedure are in the results section. CBC W/PLT COUNT & STAT 02/18/2019 4:18 Result s for this AUTO DIFFERENTIAL AM [employer] procedure are in the results section. LIPID PANEL STAT 02/18/2019 4:18 Results for this AM [employer] procedure are i n the results section. HEMOGLOBIN A1C STAT 02/18/2019 4:18 Results f or this AM [employer] procedure are i n the results section. HEPATIC FUNCTION STAT 02/18/2019 4:18 Results for this PANEL AM [employer] procedure are i n the results section. BASIC METABOLIC PANEL STAT 02/18/2019 4:18 Re sults for this (7) AM [employer] procedure are i n the results section. POCT-GLUCOSE METER Routine 02/17/2019 10:44 Resul ts for this PM [employer] procedure are i n the results section. CT ABDOMEN/PELVIS STAT 02/17/2019 6:47 Result s for this WITH IV CONTRAST PM [employer] procedure a re in the results section. CBC W/PLT COUNT & STAT 02/17/2019 5:52 Result s for this AUTO DIFFERENTIAL PM [employer] procedure are in the results section. LIPASE STAT 02/17/2019 5:52 Results for this PM [employer] procedure are i n the results section. HEPATIC FUNCTION STAT 02/17/2019 5:52 Results for this PANEL PM [employer] procedure are i n the results section. BASIC METABOLIC PANEL STAT 02/17/2019 5:52 Re sults for this (7) PM [employer] procedure are i n the results section. CBC W/PLT COUNT & STAT 02/17/2019 5:52 Result s for this AUTO DIFFERENTIAL PM [employer] procedure are in the results section. PROTHROMBIN TIME/INR STAT 02/17/2019 5:52 Res ults for this PM [employer] procedure are i n the results section. WET PREP STAT 02/17/2019 5:45 Results for this PM [employer] procedure are i n the results section. CRITICAL CARE Routine 02/17/2019 4:41 Results fo r this PM [employer] procedure are i n the results section. after 08/20/2018 Results RHYTHM STRIP - SCAN (02/23/2019 8:51 AM [employer]) Narrative Performed At This result has an attachment that is no t available. POC-Glucose meter (02/19/2019 7:25 AM [employer])Only the most recent of4 results within the time period is included. POC-Glucose Meter 81Comment: : TESTED AT 70 - 110 mg/dL [facility] [address], [place] [facility] [id number]: Receiving Clerk/Social Security Specialist ID = [id number] for Shahana Hewitt Specimen Blood Performing Organization Address City/State/Zipcode Phone Number [facility] [address] [place] [address] CENTER XR chest 1 view portable / bedside (02/19/2019 12:06 AM [employer]) Specimen Narrative Performed At FINAL REPORT [facility] RAD, CHEST, 1 VIEW, NON DEPT INDICATION: to verify tip of picc line. COMPARISON: None FINDINGS: Portable frontal view of the c hest. IMPRESSION: Support Lines: The right PICC tip termin ates in the lateral right subclavian region. Lungs and pleura: Hypoinflated lungs wit hout airspace consolidation or pleural effusion. No pneumothorax. Heart and mediastinum: Unremarkable cardiomediastinal silhouette. Additional findings: None. Signed: Erica Campoverde MD Report Verified Date/Time:02/19/2019 00:12:27 Procedure Note Interface, External Ris In - 02/19/2019 12:14 AM [employer] FINAL REPORT RAD, CHEST, 1 VIEW, NON DEPT INDICATION: to verify tip of picc line. COMPARISON: None FINDINGS: Portable frontal view of the c hest. IMPRESSION: Support Lines: The right PICC tip termin ates in the lateral right subclavian region. Lungs and pleura: Hypoinflated lungs wit hout airspace consolidation or pleural effusion. No pneumothorax. Heart and mediastinum: Unremarkable card iomediastinal silhouette. Additional findings: None. Signed: Erica Campoverde MD Report Verified Date/Time: 02/19/2019 0 0:12:27 Performing Organization Address City/State/Zipcode Phone Number [facility] CBC with platelet count + automated diff (02/18/2019 4:18 AM [employer])Only the most recent of2 resultswithin the time period is included. WBC 4.6 4.0 - 10.0 K/L [facility] RBC 3.34 (L) 4.00 - 5.00 M/L [facility] Hemoglobin 9.4 (L) 12.0 - 15.5 GM/DL [facility] Hematocrit 28.7 (L) 36.0 - 46.0 % [facility] MCV 85.9 82.0 - 99.0 fL [facility] MCH 28.1 27.0 - 33.0 pg [facility] MCHC 32.8 32.0 - 36.0 GM/DL [facility] RDW 13.5 12.0 - 15.0 % [facility] Platelets 145 (L) 150 - 430 K/CU MM [facility] MPV 11.0 6.0 - 11.5 fL [facility] nRBC 0 0 - 0 /100 WBC [facility] % Neutros 61 % [facility] % Lymphs 28 % [facility] % Monos 9 % [facility] % Eos 1 % [facility] % Baso 1 % [facility] # Neutros 2.79 1.80 - 8.00 K/L [facility] # Lymphs 1.28 (L) 1.48 - 4.50 K/L [facility] # Monos 0.40 0.00 - 1.30 K/L [facility] # Eos 0.05 0.00 - 0.50 K/L [facility] # Baso 0.06 0.00 - 0.20 K/L [facility] Immature Granulocytes-Relative 0 0 - 0 % [facility] Specimen Blood Performing Organization Address City/State/Zipcode Phone Number [facility] [address] [place] [address] Hemoglobin A1c (02/18/2019 4:18 AM [employer]) Hemoglobin A1C 8.6 (H) 4.3 - 6.1 % [facility] Specimen Blood Performing Organization Address City/State/Zipcode Phone Number [facility] [address] [place] [address] Hepatic function panel (02/18/2019 4:18 AM [employer])Only the most recent of2 results within the time period is included. Protein, Total 5.8 (L) 6.0 - 8.5 gm/dL [facility] Albumin 3.3 (L) 3.5 - 5.0 g/dL [facility] Total Bilirubin 0.4 0.1 - 1.2 mg/dL [facility] Bilirubin, Direct 0.2 0.0 - 0.4 mg/dL [facility] Alkaline Phosphatase 59 30 - 115 U/L [facility] AST 12 5 - 40 U/L [facility] ALT 5 5 - 50 U/L [facility] Specimen Blood Performing Organization Address City/State/Zipcode Phone Number [facility] [address] [place], [place] [address] Lipid panel (02/18/2019 4:18 AM [employer]) Triglycerides 46 mg/dL [facility] Cholesterol 90 mg/dL [facility] HDL 44 mg/dL [facility] LDL Calculated 37 mg/dL [facility] Specimen Blood Narrative Performed At Triglyceride Reference Range: [facility] Low Risk <150 [id number] High Risk 200-499 Very High Risk>=500 Cholesterol Reference Range: Low Risk <200 [id number] High Risk>240 HDL Cholesterol Reference Range: Low Risk >=60 High Risk <40 LDL Cholesterol Reference Range: Optimal<100 Near [id number] [id number] Very High >=190 Performing Organization Address City/State/Zipcode Phone Number [facility] [address] [place], [place] [address] Basic metabolic panel (02/18/2019 4:18 AM [employer])Only the most recent of2 results within the time period is included. Sodium 140 135 - 148 meq/L [facility] Potassium 3.5 (L) 3.6 - 5.5 meq/L [facility] Chloride 108 (H) 98 - 106 meq/L [facility] CO2 24 20 - 29 meq/L [facility] BUN 12 10 - 26 mg/dL [facility] Creatinine 0.79 0.50 - 1.20 mg/dL [facility] Glucose 82 70 - 110 mg/dL [facility] Calcium 8.8 8.5 - 10.5 mg/dL [facility] EGFR 86Comment: ESTIMATED GFR IS NOT mL/min/1.73 s q m [facility] ACCURATE CREATININE CLEARANCE IN PREDICTING GLOMERULAR FILTRATION RATE. ESTIMATED GFR IS NOT APPLICABLE FOR DIALYSIS PATIENTS. Specimen Blood Performing Organization Address City/State/Zipcode Phone Number [facility] [address] [facility] [place] [address] [address] [address] abdomen pelvis with IV contrast (02/17/2019 6:47 PM [employer]) Specimen Narrative Performed At FINAL REPORT [facility] ABDOMINAL AND PELVIS CT DATED 02/17/2019 CLINICAL INFORMATION:VAGINAL DISCHAR GE vaginal discharge and abdominal pain TECHNIQUE:Axial images of the abdome n and pelvis were obtained from diaphragm to the pubic symphysis with in travenous contrast. This exam was performed according to our departmental dose-optimization program, which include s automated exposure control, adjustment of the mA and/or kV according to patient size and/or use of interactive reconstruction technique. COMMENT: Liver and spleen are normal in size without focal abnormality.Gallbladder is surgicall y absent. No biliary dilatation is noted. Pancreas and adrenals are unremarkable. Both kidneys are normal in size and func tioning. No hydronephrosis, hydroureter, urolithiasis is seen. Patient is status post ascending hemicol ectomy. There is nonspecific wall thickening in the region of the hep atic flexure adjacent to the ileocolonic anastomosis. Uterus is surgically absent. Both ovarie s are not well seen. Small amount of air is noted in the vagina. Co lovaginal fistula cannot be entirely excluded. No mass, adenopathy or ascites is presen t. IMPRESSION: 1. Status post cholecystectomy and hyste rectomy. 2. Status post ascending hemicolectomy w ith wall thickening in the hepatic flexure adjacent to the ileocolo radha anastomosis. Please correlate clinically. 3. Air in the vagina. Please correlate c linically for possible colovaginal fistula. Signed: Erica Schultz MD Report Verified Date/Time:02/17/2019 18:58:34 Reading Location: [facility] B1 [id number] [facility] Procedure Note Interface, External Ris In - 02/17/2019 7:00 PM [employer] FINAL REPORT ABDOMINAL AND PELVIS CT DATED 02/17/2019 CLINICAL INFORMATION: VAGINAL DISCHARGE vaginal discharge and abdominal pain TECHNIQUE: Axial images of the abdomen and pelvis were obtained from diaphragm to the pubic symphysis with in travenous contrast. This exam was performed according to our departmental dose-optimization program, which include s automated exposure control, adjustment of the mA and/or kV according to patient size and/or use of interactive reconstruction technique. COMMENT: Liver and spleen are normal in size without focal abnormality. Gallbladder is surgically absent. No biliary dilatation is noted. Pancreas and adrenals are unremarkable. Both kidneys are normal in size and func tioning. No hydronephrosis, hydroureter, urolithiasis is seen. Patient is status post ascending hemicol ectomy. There is nonspecific wall thickening in the region of the hep atic flexure adjacent to the ileocolonic anastomosis. Uterus is surgically absent. Both ovarie s are not well seen. Small amount of air is noted in the vagina. Co lovaginal fistula cannot be entirely excluded. No mass, adenopathy or ascites is presen t. IMPRESSION: 1. Status post cholecystectomy and hyste rectomy. 2. Status post ascending hemicolectomy w ith wall thickening in the hepatic flexure adjacent to the ileocolo radha anastomosis. Please correlate clinically. 3. Air in the vagina. Please correlate c linically for possible colovaginal fistula. Signed: Erica Schultz MD Report Verified Date/Time: 02/17/2019 1 8:58:34 Reading Location: [address] Performing Organization Address City/State/Zipcode Phone Number GE RIS PT/INR (02/17/2019 5:52 PM [employer]) Protime 14.2 (H) 9.3 - 12.0 sec [facility] INR 1.3 <=5.9 [facility] Specimen Blood Narrative Performed At RECOMMENDED COUMADIN/WARFARIN INR THERAP Y RANGES [facility] STANDARD DOSE: 2.0 - 3.0 Includes: PROPHYLAXIS for venous thrombosis, systemic embolization; TREATMENT for venou s thrombosis and/or pulmonary embolus. HIGH RISK: Target INR is 2.5-3.5 for patients with mec hanical heart valves. Final Information (Auto Output) Final Information (Auto Output) Performing Organization Address City/State/Zipcode Phone Number [facility] [address] [place], [place] [address] Lipase (02/17/2019 5:52 PM [employer]) Lipase 6 6 - 51 U/L [facility] Specimen Blood Performing Organization Address City/[facility]/Zipcode Phone Number [facility] [address] [place], [place] [address] Wet prep, genital (02/17/2019 5:45 PM [employer]) WBC - wet prep Moderate white blood cells [facility] seen Clue cells - wet prep No clue cells seen [facility] Yeast - wet prep No budding yeast seen [facility] Trichomonas - wet prep No Trichomonas seen [facility] Bacteria - wet prep Few bacteria seen [facility] Specimen Genital Performing Organization Address City/[facility]/Zipcode Phone Number [facility] [address] [place], [place] [address] CRITICAL CARE (02/17/2019 4:41 PM [employer]) Narrative [place] [address]:53 AM Critical Care Performed by: Anabela Kimbrough MD Authorized by: Bird Garcia MD Total critical care time: 45 minutes Critical care was necessary to treat or prevent imminent or life-threatening deterioration of the fo llowing conditions: sepsis. Critical care was time spent personally by me on the [facility] activities: blood draw for specimens, discussions wi consultants, evaluation of patient's response to treatment, obtaini ng history from patient or surrogate, ordering and review of labora tory studies, pulse oximetry, development of treatment plan with patient or surrogat e, discussions with primary provider, interpretation of card iac output measurements, examination of patient, ordering and per forming treatments and interventions, ordering and review of ra diographic studies and re-evaluation of patient's condition. Subsequent provider of critical care: I assumed direct ion of critical care for this patient from another provider o f my specialty. after 08/20/2018 Insurance Payer Benefit Plan / Group Subscriber ID Type Phone A ddress MEDICARE MEDICARE A B xxxxxxxxxxx Medicare [place] MED[place] xxxxxxxxx Advance Directives For more information, please contact:[address] BenjaminVenedocia, [place] [phone] Code Status Date Activated Date Inactivated Comments Full Code 02/17/2019 10:31 PM 02/19/2019 1:18 PM This code status was determined by: Patient
--- OUTSIDE RECORDS SUMMARY | 2019-08-21 18:16 | XMS REPORT ---
:1945 Author Organization [facility] t Address [address] [place] [address] Care Team Providers Name Role Phone Asked, Pcp Primary Care Physician Unavailable Gagandeep VARGAS Attending Clinician Katie Henderson MD Attending Clinician RAFAEL RODRIGUEZ Attending Clinician Unavailable DUNG ENRIQUEZ Admitting Clinician Unavailable Problems This patient has no known problems. Allergies, Adverse Reactions, Alerts Allergy Allergy Status Severity Reaction(s) Onset Inactive Treating Comm ents Source Name Type Date Date Clinician Morphine Propensi Active Navi merrill ty to 08-02 Methodi adverse 00:00: st reaction 00 s to drug Social History Social Habit Start Date Stop Date Quantity Comments Source Sex Assigned At [facility] ethodist Alcohol intake 2016-08-02 2016-08-02 Current [facility] thodist 00:00:00 00:00:00 non-drinker of alcohol (finding) Smoking Status Start Date Stop Date Source Never smoker [place] Methodis t Medications This patient has no known medications. Procedures This patient has no known procedures. Plan of Care Planned Activity Planned Date Details Comments Source Future Scheduled 2019-10-30 INFLUENZA VACCINE Navi merrill Sabianist Test 00:00:00 [code = INFLUENZA VACCINE] Future Scheduled 2010 65+ PNEUMOCOCCAL Jian Sabianist Test 00:00:00 VACCINE (1 of 2 - PCV13) [code = 65+ PNEUMOCOCCAL VACCINE (1 of 2 - PCV13)] Future Scheduled 1995-12-31 BREAST CANCER Villar thodist Test 00:00:00 SCREENING [code = BREAST CANCER SCREENING] Future Scheduled 1995-12-31 COLONOSCOPY SCREENING Ho dm Sabianist Test 00:00:00 [code = COLONOSCOPY SCREENING] Future Scheduled 1995-12-31 SHINGLES VACCINES (#1) H jaiden Sabianist Test 00:00:00 [code = SHINGLES VACCINES (#1)] Encounters Start End Encounter Admission Attending Care Care Encounter Source Date/Time Date/Time Type Type Clinicians Facility Department ID 2019-08-19 2019-08-19 Refill [facility] [id number] 00:00:00 00:00:00 Kevon Tineo [id number] [place] [id number] Professio [phone] [address] 2019-08-18 2019-08-18 Telephone [facility] [id number] 00:00:00 00:00:00 Darlene Tineo [id number] [place] [id number] Professio [phone] [address] 2019-07-30 2019-07-30 Telephone [facility] [id number] 00:00:00 00:00:00 Darlene Tineo [id number] [place] [id number] Professio [phone] [address] Results Test Description Test Time Test Comments Results Result Comments Source POCT-GLUCOSE METER 2019-02-19 07:36:00 Test Item Value Reference Range Interpretation Comme nts POC-GLUCOSE METER (ZEINAB) 81 mg/dL 70-110 : TESTED AT [address] (test code = 1538) [facility] [id number]: Check Embosser/Techni yosvany ID = [id number] for Shahana Hewitt RAD, CHEST, 1 VIEW, NON [id number] 00:12:00Reason for exam:->to verify tip of picc [...] cardiomediastinal silhouette. Additional findings: None. Signed: Erica Campoverdeeport Verified Date/Time: 02/19/2019 00:12:27 12:12 AMPOCT-GLUCOSE [id number] 23:41:00 Test Item Value Reference Range Interpretation Comments POC-GLUCOSE METER 96 mg/dL 70-110 : TESTED A T [address] (BEAKER) (test code = [address], [address]) [place] [id number]: Check Embosser/Techni yosvany ID = [id number] for Doreen Randhawa POCT-GLUCOSE [id number] 08:55:00 Test Item Value Reference Range Interpretation Comments POC-GLUCOSE METER 76 mg/dL 70-110 : TESTED A T [address] (BEAKER) (test code = [address], 15[address]) [place] [id number]: Check Embosser/Techni yosvany ID = [id number] for Dyan Mukherjee BASIC METABOLIC [id number] 05:09:00 Test Item Value Reference Range Interpretation Comments SODIUM (BEAKER) 140 meq/L 135-148 (test code = 381) POTASSIUM (BEAKER) 3.5 meq/L 3.6-5.5 L (test code = 379) CHLORIDE (BEAKER) 108 meq/L 98-106 H (test code = 382) CO2 (BEAKER) (test 24 meq/L 20-29 code = 355) BLOOD UREA NITROGEN 12 mg/dL 10-26 (BEAKER) (test code = 354) CREATININE (BEAKER) 0.79 mg/dL 0.50-1.20 (test code = 358) GLUCOSE RANDOM 82 mg/dL 70-110 (BEAKER) (test code = 652) CALCIUM (BEAKER) 8.8 mg/dL 8.5-10.5 (test code = 697) EGFR (BEAKER) (test 86 mL/min/1.73 ESTIMA ADI GFR IS code = 1092) sq m NOT ACCURATE CREATININE CLEARANCE IN PREDICTING GLOMERULAR FILTRATION RATE . ESTIMATED GFR I S NOT APPLICABLE FOR DIALYSIS PATIEN TS. LIPID [id number] 05:08:00 Test Item Value Reference Range Interpretation Comments TRIGLYCERIDES (BEAKER) (test code = 46 mg/dL 540) CHOLESTEROL (BEAKER) (test code = 90 mg/dL 631) HDL CHOLESTEROL (BEAKER) (test code 44 mg/dL = 976) LDL CHOLESTEROL CALCULATED (BEAKER) 37 mg/dL (test code = 633) Triglyceride Reference Range: Low Risk <150 Borderline 150-199 High Risk 200-499 Very High Risk >=500Cholesterol Reference Range: Low Risk <200 Borderline 200-239 High Risk >240HDL Cholesterol Reference Range: Low Risk >=60 High Risk <40LDL Cholesterol Reference Range: Optimal <100 Near Optimal 100-129 Borderline 130-159 High 160-189 Very High >=190HEPATIC FUNCTION [id number] 05:08:00 Test Item Value Reference Range Interpretation Comments TOTAL PROTEIN (BEAKER) (test code = 5.8 gm/dL 6.0-8.5 L 770) ALBUMIN (BEAKER) (test code = 1145) 3.3 g/dL 3.5-5.0 L BILIRUBIN TOTAL (BEAKER) (test code 0.4 mg/dL 0.1-1.2 = 377) BILIRUBIN DIRECT (BEAKER) (test 0.2 mg/dL 0.0-0.4 code = 706) ALKALINE PHOSPHATASE (BEAKER) (test 59 U/L 30-115 code = 346) AST (SGOT) (BEAKER) (test code = 12 U/L 5-40 353) ALT (SGPT) (BEAKER) (test code = 5 U/L 5-50 347) HEMOGLOBIN [id number] 05:02:00 Test Item Value Reference Range Interpretation Comments HEMOGLOBIN A1C (BEAKER) (test code = 8.6 % 4.3-6.1 H 368) CBC W/PLT COUNT & AUTO [id number] 04:47:00 Test Item Value Reference Range Interpretation Comments WHITE BLOOD CELL COUNT (BEAKER) 4.6 K/ L 4.0-10.0 (test code = 775) RED BLOOD CELL COUNT (BEAKER) 3.34 M/ L 4.00-5.00 L (test code = 761) HEMOGLOBIN (BEAKER) (test code = 9.4 GM/DL 12.0-15.5 L 410) HEMATOCRIT (BEAKER) (test code = 28.7 % 36.0-46.0 L 411) MEAN CORPUSCULAR VOLUME (BEAKER) 85.9 fL 82.0-99.0 (test code = 753) MEAN CORPUSCULAR HEMOGLOBIN 28.1 pg 27.0-33.0 (BEAKER) (test code = 751) MEAN CORPUSCULAR HEMOGLOBIN CONC 32.8 GM/DL 32.0-36.0 (BEAKER) (test code = 752) RED CELL DISTRIBUTION WIDTH 13.5 % 12.0-15.0 (BEAKER) (test code = 412) PLATELET COUNT (BEAKER) (test 145 K/CU MM 150-430 L code = 756) MEAN PLATELET VOLUME (BEAKER) 11.0 fL 6.0-11.5 (test code = 754) NUCLEATED RED BLOOD CELLS 0 /100 WBC 0-0 (BEAKER) (test code = 413) NEUTROPHILS RELATIVE PERCENT 61 % (BEAKER) (test code = 429) LYMPHOCYTES RELATIVE PERCENT 28 % (BEAKER) (test code = 430) MONOCYTES RELATIVE PERCENT 9 % (BEAKER) (test code = 431) EOSINOPHILS RELATIVE PERCENT 1 % (BEAKER) (test code = 432) BASOPHILS RELATIVE PERCENT 1 % (BEAKER) (test code = 437) NEUTROPHILS ABSOLUTE COUNT 2.79 K/ L 1.80-8.00 (BEAKER) (test code = 670) LYMPHOCYTES ABSOLUTE COUNT 1.28 K/ L 1.48-4.50 L (BEAKER) (test code = 414) MONOCYTES ABSOLUTE COUNT (BEAKER) 0.40 K/ L 0.00-1.30 (test code = 415) EOSINOPHILS ABSOLUTE COUNT 0.05 K/ L 0.00-0.50 (BEAKER) (test code = 416) BASOPHILS ABSOLUTE COUNT (BEAKER) 0.06 K/ L 0.00-0.20 (test code = 417) IMMATURE GRANULOCYTES-RELATIVE 0 % 0-0 PERCENT (BEAKER) (test code = 2801) POCT-GLUCOSE [id number] 22:56:00 Test Item Value Reference Range Interpretation Comments POC-GLUCOSE METER 95 mg/dL 70-110 : TESTED A T [address] [address] (BEAKER) (test code = [address], [address]) [facility] 77 478: Check Embosser/Techni yosvany ID = [id number] for Nehal Milner CT, [id number] 18:58:00Reason for exam:->VAGINAL DISCHARGEWhat is the patient's [...] functioning. No hydronephrosis, hydroureter, urolithiasis is seen. Bree ent is status post ascending hemicolectomy. There is [...] fistula. Signed: Erica Schultz MDReport Verified Date/Time: 18:58:34 Reading Location: [facility] B1 [id number] Consult Reading Room LIPASE 2019-02-17 18:20:00 Test Item Value Reference Range Interpretation Comments LIPASE (BEAKER) (test code = 749) 6 U/L 6-51 BASIC METABOLIC [id number] 18:20:00 Test Item Value Reference Range Interpretation Comments SODIUM (BEAKER) (test 138 meq/L 135-148 code = 381) POTASSIUM (BEAKER) 3.7 meq/L 3.6-5.5 (test code = 379) CHLORIDE (BEAKER) 105 meq/L 98-106 (test code = 382) CO2 (BEAKER) (test 25 meq/L 20-29 code = 355) BLOOD UREA NITROGEN 11 mg/dL 10-26 (BEAKER) (test code = 354) CREATININE (BEAKER) 0.91 mg/dL 0.50-1.20 (test code = 358) GLUCOSE RANDOM 99 mg/dL 70-110 (BEAKER) (test code = 652) CALCIUM (BEAKER) 9.0 mg/dL 8.5-10.5 (test code = 697) EGFR (BEAKER) (test INSUFFIC IENT CLINICAL code = 1092) DATA TO CALCULA TE ESTIMATED GFR. HEPATIC FUNCTION [id number] 18:19:00 Test Item Value Reference Range Interpretation Comments TOTAL PROTEIN (BEAKER) (test code = 6.1 gm/dL 6.0-8.5 770) ALBUMIN (BEAKER) (test code = 1145) 3.4 g/dL 3.5-5.0 L BILIRUBIN TOTAL (BEAKER) (test code 0.5 mg/dL 0.1-1.2 = 377) BILIRUBIN DIRECT (BEAKER) (test 0.3 mg/dL 0.0-0.4 code = 706) ALKALINE PHOSPHATASE (BEAKER) (test 67 U/L 30-115 code = 346) AST (SGOT) (BEAKER) (test code = 13 U/L 5-40 353) ALT (SGPT) (BEAKER) (test code = 5 U/L 5-50 347) PROTHROMBIN [id number] 18:11:00 Test Item Value Reference Range Interpretation Comments PROTIME (BEAKER) (test code = 759) 14.2 sec 9.3-12.0 H INR (BEAKER) (test code = 370) 1.3 <=5.9 RECOMMENDED COUMADIN/WARFARIN INR THERAPY RANGESSTANDARD DOSE: 2.0 - 3.0 Includes: PROPHYLAXIS forvenous thrombosis, systemic embolization; TREATMENT for venous thrombosis and/or pulmonary embolus.HIGH RISK: Target INR is 2.5-3.5 for patients with mechanical heart valves.Final Information (Auto Output)Final Information (Auto Output)CBC W/PLT COUNT & AUTO [id number] 18:01:00 Test Item Value Reference Range Interpretation Comments WHITE BLOOD CELL COUNT (BEAKER) 5.8 K/ L 4.0-10.0 (test code = 775) RED BLOOD CELL COUNT (BEAKER) 3.43 M/ L 4.00-5.00 L (test code = 761) HEMOGLOBIN (BEAKER) (test code = 9.7 GM/DL 12.0-15.5 L 410) HEMATOCRIT (BEAKER) (test code = 29.6 % 36.0-46.0 L 411) MEAN CORPUSCULAR VOLUME (BEAKER) 86.3 fL 82.0-99.0 (test code = 753) MEAN CORPUSCULAR HEMOGLOBIN 28.3 pg 27.0-33.0 (BEAKER) (test code = 751) MEAN CORPUSCULAR HEMOGLOBIN CONC 32.8 GM/DL 32.0-36.0 (BEAKER) (test code = 752) RED CELL DISTRIBUTION WIDTH 13.6 % 12.0-15.0 (BEAKER) (test code = 412) PLATELET COUNT (BEAKER) (test 146 K/CU MM 150-430 L code = 756) MEAN PLATELET VOLUME (BEAKER) 10.7 fL 6.0-11.5 (test code = 754) NUCLEATED RED BLOOD CELLS 0 /100 WBC 0-0 (BEAKER) (test code = 413) NEUTROPHILS RELATIVE PERCENT 69 % (BEAKER) (test code = 429) LYMPHOCYTES RELATIVE PERCENT 18 % (BEAKER) (test code = 430) MONOCYTES RELATIVE PERCENT 10 % (BEAKER) (test code = 431) EOSINOPHILS RELATIVE PERCENT 2 % (BEAKER) (test code = 432) BASOPHILS RELATIVE PERCENT 1 % (BEAKER) (test code = 437) NEUTROPHILS ABSOLUTE COUNT 3.99 K/ L 1.80-8.00 (BEAKER) (test code = 670) LYMPHOCYTES ABSOLUTE COUNT 1.07 K/ L 1.48-4.50 L (BEAKER) (test code = 414) MONOCYTES ABSOLUTE COUNT (BEAKER) 0.57 K/ L 0.00-1.30 (test code = 415) EOSINOPHILS ABSOLUTE COUNT 0.11 K/ L 0.00-0.50 (BEAKER) (test code = 416) BASOPHILS ABSOLUTE COUNT (BEAKER) 0.07 K/ L 0.00-0.20 (test code = 417) IMMATURE GRANULOCYTES-RELATIVE 0 % 0-0 PERCENT (BEAKER) (test code = 2801) WET [id number] 17:57:00 Test Item Value Reference Range Interpretation Comments WBC WET PREP Moderate white blood (BEAKER) (test code cells seen = 528) CLUE CELLS (BEAKER) No clue cells seen (test code = 526) YEAST WET PREP No budding yeast seen (BEAKER) (test code = 530) TRICH WET PREP No Trichomonas seen (BEAKER) (test code = 531) BACT WET PREP Few bacteria seen (BEAKER) (test code = 532)
--- OUTSIDE RECORDS SUMMARY | 2019-08-21 18:26 | XMS REPORT | Summary of Care ---
:1945 Author Organization [facility] Address [address] [place] [address] Care Team Providers Name Role Phone Katie Henderson MD Primary Care Provider Leah Poon Exhibit Artist Sammi Eason Insurance Hmo Reason for Visit Reason Comments Notification Encounter Details Date Type Department Care Team Description 08/04/2019 Telephone [facility] Pediatric and Anne Henderson, Notification Adult Primary Care- MD Tineo [address] [place] [address], Suite [facility] 10 3 [address] [place] [address] [place] [address] [phone] Allergies Active Allergy Reactions Severity Noted Date Comments Morphine Hallucinations 06/28/2016 documented as of this encounter (statuses as of 08/04/2019) Medications Medication Sig Dispensed Refills Start Date End Date Status blood sugar Use BID, DX E11.9 200 Strip 3 05/22/2018 Active diagnostic (Brand upon stripIndications: insurance approval) Type 2 diabetes Patient preference mellitus with Contour complication, without long-term current use of insulin collagenase 250 Apply to affected 30 g 1 02/13/2019 Active unit/gram area(s) daily. ointmentIndications: Osteomyelitis of fifth toe of right foot blood sugar Use BID, DX E11.9 100 Strip 11 04/29/2019 Active diagnostic (ASCENSIA (Brand upon MICROFILL) strip insurance approval) Lancets (MICROLET Use BID, DX E11.9 100 Each 11 04/29/2019 Active LANCET) (Brand upon MiscIndications: insurance approval) Type 2 diabetes mellitus with complication Blood-Glucose Meter Check glucose level 1 Each 0 05/04/2019 Active (BLOOD GLUCOSE twice daily per MONITORING) Kit code E11.9. glipiZIDE 10 mg Take 2 tablets by 360 tablet 1 05/12/2019 Active tabletIndications: mouth 2 (two) times Type 2 diabetes daily before mellitus with breakfast and complication dinner. ciprofloxacin HCl Take 1 tablet by 112 tablet 0 05/12/2019 Active 500 mg mouth every 12 tabletIndications: (twelve) hours. Vaginal bleeding, Take Ciprofloxacin Osteomyelitis of 500mg PO BID x 8 fifth toe of right weeks for foot Osteomyelitis (Bone Infection). Take with a probiotic 1 Tab daily rivaroxaban Take 1 tablet by 90 tablet 1 05/12/2019 Active (XARELTO) 20 mg mouth daily. tabletIndications: Indications: treatment to slow treatment to slow progression of progression of coronary artery coronary artery disease disease pregabalin 300 mg Take 1 capsule by 60 capsule 1 05/18/2019 Active capsuleIndications: mouth 2 (two) times Other chronic pain daily. lancets (BD ULTRA Check sugars BID 100 Each 05/18/2019 Active FINE LANCETS) 33 times a day. Dx gauge Code E11.9. Brand MiscIndications: per insurance. Type 2 diabetes mellitus with complication, without long-term current use of insulin CETIRIZINE 10 mg TAKE 1 TABLET BY 90 tablet 1 06/23/2019 Active tabletIndications: MOUTH EVERY DAY Non-seasonal allergic rhinitis, unspecified trigger repaglinide 0.5 mg TAKE (1) TABLET BY 360 tablet 1 07/02/2019 Active tabletIndications: MOUTH BEFORE LUNCH Type 2 diabetes AND DINNER, IF mellitus with SUGARS 2 HOURS complication, AFTER MEAL ARE without long-term STILL >200 THEN 2 current use of TABLETS BEFORE insulin LUNCH AND DINNER Diclofenac Sodium Take 2-4 grams 100 g 3 07/23/2019 Active (VOLTAREN) 1 % three times a day gelIndications: as needed for pain Other chronic pain baclofen 5 mg Take 2.5 mg by 30 tablet 3 07/23/2019 Active TabIndications: mouth at bedtime. Other chronic pain LISINOPRIL 10 mg TAKE 1 TABLET BY 90 tablet 0 08/04/2019 Active tabletIndications: MOUTH EVERY DAY Essential hypertension documented as of this encounter (statuses as of 08/04/2019) Active Problems Problem Noted Date Gastrointestinal hemorrhage with hematemesis 0 Non-seasonal allergic rhinitis due to pollen 0 Non-seasonal allergic rhinitis, unspecified trigger Dyslipidemia 05/12/2019 Coronary artery disease involving [place] coronary brian ry of [place] heart 05/12/2019 without angina pectoris PAD (peripheral artery disease) 05/12/2019 PAF (paroxysmal atrial fibrillation) 03/21/2019 Vaginal bleeding 03/03/2019 Osteomyelitis of fifth toe of right foot 02/11/2019 Confusion 02/11/2019 Non-healing open wound of toe, initial encounter 02/02 Hospital discharge follow-up 02/01/2019 Essential hypertension 02/01/2019 Anemia, unspecified type 02/01/2019 Breast cancer screening by mammogram 02/01/2019 Senile osteoporosis 02/01/2019 Need for influenza vaccination 02/01/2019 Fall in home, initial encounter 02/01/2019 Rectal bleeding 11/04/2018 Overview: Added automatically from request for [facility] [id number] Urine incontinence 10/07/2018 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 10/17/2017 mellitus Overgrown toenails 10/17/2017 Colon cancer 06/05/2017 Malignant neoplasm of colon, unspecified part of colon 05/06/2017 Overview: Added automatically from request for [place] [facility] [id number] Colonic mass 03/14/2017 Overview: Added automatically from request for [facility] [id number] 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 S/P hysterectomy 10/29/2016 Vulvar lesion 10/29/2016 Type 2 diabetes mellitus with complication 10/11/2016 Diffuse pain 10/11/2016 Near syncope 06/28/2016 UTI (urinary tract infection) 05/24/2016 Generalized abdominal pain 05/24/2016 documented as of this encounter (statuses as of 08/04/2019) Resolved Problems Problem Noted Date Resolved Date Hematuria 10/29/2016 10/29/2016 documented as of this encounter (statuses as of 08/04/2019) Immunizations Name Administration Dates Next Due Influenza High Dose 02/01/2019 documented as of this encounter Social History Tobacco Use Types Packs/Day Years Used Date Never Smoker Smokeless Tobacco: Never Used Alcohol Use Drinks/Week oz/Week Comments No Sex Assigned at Date Recorded Not on file Job Start Date Occupation Industry Not on file Not on file Not on file Travel History Travel Start Travel End No recent travel history available. COVID-19 Exposure Response Date Recorded In the last month, have you been in contact Unable to assess 07/22/2019 9:06 AM CDT with someone who was confirmed or suspected to have Coronavirus / COVID-19? documented as of this encounter Last Filed Vital Signs Not on filedocumented in this encounter Plan of Treatment Date Type Specialty Care Team Description 08/06/2019 Telemedicine Visit Family Medicine Solomon Henderson MD [address] [place] [address] [address] Kevon Donis MD [address] [place] [address] [address] 08/10/2019 Telemedicine Visit Family Medicine Rell Donis MD [address] [place] [address] [phone] 08/17/2019 Office Visit Internal Medicine Darlene Henderson MD [address] [place] [phone] Health Maintenance Due Date Last Done Comments DTaP,Tdap,and Td Vaccines (1 - 1956 Tdap) Zoster Recombinant Vaccine 12/31/1995 (SHINGRIX) (1 of 2) Medicare Wellness Visit 2010 Osteoporosis Screening 2010 PNEUMOCOCCAL VACCINES 65+ (2 of 2 2010 01/08/2017 (De clined) - PPSV23) Breast Cancer Screening 01/08/2018 01/08/2017 (Declined) (MAMMOGRAM) FOOT EXAM 08/11/2019 08/10/2018, 08/10/2018, 05/26/2017, Additional history exists HgA1C 08/12/2019 02/11/2019, 02/01/2019, 10/15/2018, Additional history exists URINE MICROALBUMIN 08/22/2019 08/21/2018, 04/30/2017 LDL-C 02/12/2020 02/11/2019, 10/15/2018, 08/21/2018, Additional history exists CREATININE (SERUM) 02/21/2020 02/20/2019, 02/12/2019, 02/11/2019, Additional history exists COLONOSCOPY 11/20/2028 11/20/2018, 03/20/2017 HEPATITIS C (HCV) SCREEN Completed 01/08/2017 INFLUENZA VACCINE Completed 02/01/2019 EYE EXAM Discontinued documented as of this encounter Results Not on filedocumented in this encounter Insurance Payer Benefit Plan / Subscriber ID Effective Dates Phone Addre ss Type Group MEDICARE MEDICARE PART xxxxxxxxxxx 2003-Prese [phone] Medicare A & B 2 [id number] RADHA RAMOS [id number] [facility] MEDICAID OF xxxxxxxxx 2018-Presen [phone] [address] [place] [id number] [place] [address] documented as of this encounter Advance Directives Name Relationship Healthcare Agent Communication Relationship Jose Guerrier Child Primary healthcare agent Obdulio Rey Nephew [facility] agent (Mobile)
--- OUTSIDE RECORDS SUMMARY | 2019-08-21 18:26 | XMS REPORT | Summary of Care ---
:1945 Author Organization [facility] - [facility] Address [address] [place] [address] Care Team Providers Name Role Phone Katie Henderson MD Primary Care Provider Leah Poon Edger Machine Helper Sammi Eason Insurance Hmo Reason for Visit Reason Comments Refill Request Encounter Details Date Type Department Care Team Description 08/03/2019 Refill [facility] Pediatric and Kevon Aguilar MD Refill Request Adult Primary Care- [address] [facility] [address] Tineo [facility] 205 146 [facility] , [place] [address] 205 [place] [address] [phone] Allergies Active Allergy Reactions Severity Noted Date Comments Morphine Hallucinations 06/28/2016 documented as of this encounter (statuses as of 08/04/2019) Medications Medication Sig Dispensed Refills Start End Date Status Date blood sugar Use BID, DX E11.9 200 Strip 3 Active diagnostic (Brand upon 9 stripIndications: insurance Type 2 diabetes approval) Patient mellitus with preference Contour complication, without long-term current use of insulin collagenase 250 Apply to affected 30 g 1 Active unit/gram area(s) daily. 9 ointmentIndication s: Osteomyelitis of fifth toe of right foot blood sugar Use BID, DX E11.9 100 Strip 11 Active diagnostic (Brand upon 0 ([employer] insurance MICROFILL) strip approval) Lancets (MICROLET Use BID, DX E11.9 100 Each Active LANCET) (Brand upon 0 MiscIndications: insurance Type 2 diabetes approval) mellitus with complication Blood-Glucose Check glucose 1 Each 0 Ac tive Meter (BLOOD level twice daily 0 GLUCOSE per code E11.9. MONITORING) Kit glipiZIDE 10 mg Take 2 tablets by 360 tablet 1 Active tabletIndications: mouth 2 (two) 0 Type 2 diabetes times daily before mellitus with breakfast and complication dinner. ciprofloxacin HCl Take 1 tablet by 112 tablet 0 Active 500 mg mouth every 12 0 tabletIndications: (twelve) hours. Vaginal bleeding, Take Ciprofloxacin Osteomyelitis of 500mg PO BID x 8 fifth toe of right weeks for foot Osteomyelitis (Bone Infection). Take with a probiotic 1 Tab daily rivaroxaban Take 1 tablet by 90 tablet 1 A ctive (XARELTO) 20 mg mouth daily. 0 tabletIndications: Indications: treatment to slow treatment to slow progression of progression of coronary artery coronary artery disease disease pregabalin 300 mg Take 1 capsule by 60 capsule 1 Active capsuleIndications mouth 2 (two) 0 : Other chronic times daily. pain lancets (BD ULTRA Check sugars BID 100 Each Active FINE LANCETS) 33 times a day. Dx 0 gauge Code E11.9. Brand MiscIndications: per insurance. Type 2 diabetes mellitus with complication, without long-term current use of insulin CETIRIZINE 10 mg TAKE 1 TABLET BY 90 tablet 1 Active tabletIndications: MOUTH EVERY DAY 0 Non-seasonal allergic rhinitis, unspecified trigger repaglinide 0.5 mg TAKE (1) TABLET BY 360 tablet 1 Active tabletIndications: MOUTH BEFORE LUNCH 0 Type 2 diabetes AND DINNER, IF mellitus with SUGARS 2 HOURS complication, AFTER MEAL ARE without long-term STILL >200 THEN 2 current use of TABLETS BEFORE insulin LUNCH AND DINNER Diclofenac Sodium Take 2-4 grams 100 g 3 Active (VOLTAREN) 1 % three times a day 0 gelIndications: as needed for pain Other chronic pain baclofen 5 mg Take 2.5 mg by 30 tablet 3 A ctive TabIndications: mouth at bedtime. 0 Other chronic pain LISINOPRIL 10 mg TAKE 1 TABLET BY 90 tablet 0 Active tabletIndications: MOUTH EVERY DAY 0 Essential hypertension lisinopril 10 mg Take 1 tablet by 90 tablet 0 Discontinued tabletIndications: mouth daily. 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 10/17/2017 mellitus Overgrown toenails 10/17/2017 Colon cancer 06/05/2017 Malignant neoplasm of colon, unspecified part of colon 05/06/2017 Overview: Added automatically from request for kinsey arie [id number] Colonic mass 03/14/2017 Overview: Added automatically from request for kinsey arie [id number] Vulvar intraepithelial neoplasia (CHASE) grade 3 017 [...] Telemedicine Visit Family Medicine Solomon Henderson MD [address] [place] [address] [address] [phone] Kevon Donis MD [address] [place] [address] [address] 08/10/2019 Telemedicine Visit Family Medicine Rell Donis MD [address] [place] [address] 775 [address] 08/17/2019 Office Visit Internal Medicine Darlene Henderson MD [address] [place] [address]75 15 [phone] Health Maintenance Due Date Last Done Comments [...] Results Not on filedocumented in this encounter Visit Diagnoses Diagnosis Essential hypertension Unspecified essential hypertension documented in this encounter Insurance Payer Benefit Plan / Subscriber ID Effective Dates Phone Addre ss Type Group MEDICARE MEDICARE PART xxxxxxxxxxx 2003-Prese [phone] Medicare A & B 2 [id number] RADHA RAMOS [id number] [facility] MEDICAID OF xxxxxxxxx 2018-Presen [phone] [address] Medicaid [facility] 0 [id number] [place] [address] documented as of this encounter Advance Directives Name Relationship Healthcare Agent Communication Relationship Jose Fareed Child Primary healthcare agent Obdulio Rey Nephew [facility] agent (Mobile)
--- OUTSIDE RECORDS SUMMARY | 2019-08-21 18:27 | XMS REPORT | Summary of Care ---
:1945 Author Organization [facility] - [facility] Address [address] [place] [address] Care Team Providers Name Role Phone Katie Henderson MD Primary Care Provider Leah Poon Recovery Analyst Sammi Eason Insurance Hmo Reason for Visit Reason Comments No Show (DNKA) Encounter Details Date Type Department Care Team Description 08/06/2019 Telemedicine Visit [facility] Solomon Henderson MD [address] [place] [address] Dr Johnson [address] [place] [address] NO SHOW (Primary Pediatric and Adult Kevon Donis MD [address] [place] [address] Dr Johnson [address] [place] [address] Dx) Primary Care- [address] Hetal Marcano 205 [place] [address] Allergies Active Allergy Reactions Severity Noted Date Comments Morphine Hallucinations 06/28/2016 documented as of this encounter (statuses as of 08/06/2019) Medications Medication Sig Dispensed Refills Start Date [...] as of this encounter (statuses as of 08/06/2019) Active Problems Problem Noted Date Gastrointestinal hemorrhage with hematemesis 0 Non-seasonal allergic rhinitis due to pollen 0 Non-seasonal allergic rhinitis, unspecified trigger Dyslipidemia 05/12/2019 Coronary artery disease involving iliamna coronary brian ry of iliamna heart 05/12/2019 without angina pectoris PAD (peripheral [...] Added automatically from request for kinsey arie [id number] Urine incontinence 10/07/2018 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 10/17/2017 mellitus Overgrown toenails 10/17/2017 Colon cancer 06/05/2017 Malignant neoplasm of colon, unspecified part of colon 05/06/2017 Overview: Added automatically from request for kinsey arie [id number] Colonic mass 03/14/2017 Overview: Added automatically from request for kinsey arie [id number] 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 S/P hysterectomy 10/29/2016 Vulvar lesion 10/29/2016 Type 2 diabetes mellitus with complication 10/11/2016 Diffuse pain 10/11/2016 Near syncope 06/28/2016 UTI (urinary tract infection) 05/24/2016 Generalized abdominal pain 05/24/2016 documented as of this encounter (statuses as of 08/06/2019) Resolved Problems Problem Noted Date Resolved Date Hematuria 10/29/2016 10/29/2016 documented as of this encounter (statuses as of 08/06/2019) Immunizations Name Administration Dates Next Due Influenza [...] Signs Not on filedocumented in this encounter Progress Notes Kevon Donis MD - 08/06/2019 10:00 AM CDTCalled and spoke to patient's son (Chaim Guerrier), who reports that he is not currently at his mother's house, requests F2F visit on 08/10/2019. Thank you documented in this encounter Plan of Treatment Date Type Specialty Care Team Description 08/10/2019 Telemedicine Visit Family Medicine Rell Donis MD [address] [place] [address] [facility] [address] [place] [address] 15 [phone] 08/17/2019 Office Visit Internal Medicine Darlene Henderson MD [address] [place] [address] [address] [place], [place] [address] [phone] Health Maintenance Due Date Last Done Comments [...] filedocumented in this encounter Visit Diagnoses Diagnosis NO SHOW - Primary documented in this encounter Insurance Payer Benefit Plan / Subscriber ID Effective Dates Phone Addre ss Type Group MEDICARE MEDICARE PART xxxxxxxxxxx 2003-Prese [phone] [address] Medicare A & B 2 [id number] [place] [address] [facility] MEDICAID OF xxxxxxxxx 2018-Presen [phone] [address] Medicaid [place] t 0 [id number] [place] [address] documented as of this encounter Advance Directives Name Relationship Healthcare Agent Communication Relationship Jose Guerrier Child Primary healthcare agent [email or web address] Obdulio Rey Nephew [facility] agent (Mobile)
--- OUTSIDE RECORDS SUMMARY | 2019-08-21 18:27 | XMS REPORT | Summary of Care ---
:1945 Author Organization [facility] - [facility] Address [address] [place] [address] Care Team Providers Name Role Phone Katie Henderson MD Primary Care Provider Leah Poon Valuer Sammi Eason Insurance Hmo Reason for Visit Reason Comments Forms 485 Encounter Details Date Type Department Care Team Description 08/18/2019 Telephone [facility] Pediatric and Anne Henderson, Forms (190) Adult Primary Care- MD Tineo [address] [place] [address], Suite [facility] 10 3 205 [place] [address] [place] [address] [phone] Allergies Active Allergy Reactions Severity Noted Date Comments Morphine Hallucinations 06/28/2016 documented as of this encounter (statuses as of 08/20/2019) Medications Medication Sig Dispensed Refills Start Date [...] (MICROLET Use BID, DX E11.9 100 Each 04/29/2019 Active LANCET) (Brand upon MiscIndications: insurance [...] of coronary artery coronary artery disease disease lancets (BD ULTRA Check sugars BID 100 [...] as of this encounter (statuses as of 08/20/2019) Active Problems Problem Noted Date Gastrointestinal hemorrhage with hematemesis 0 Non-seasonal allergic rhinitis due to pollen 0 Non-seasonal allergic rhinitis, unspecified trigger Dyslipidemia 05/12/2019 Coronary artery disease involving ely shoshone coronary brian ry of ely shoshone heart 05/12/2019 without angina pectoris PAD (peripheral [...] Added automatically from request for kinsey arie [id number] Urine incontinence 10/07/2018 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 10/17/2017 mellitus Overgrown toenails 10/17/2017 Colon cancer 06/05/2017 Malignant neoplasm of colon, unspecified part of colon 05/06/2017 Overview: Added automatically from request for kinsey arie [id number] Colonic mass 03/14/2017 Overview: Added automatically from request for kinsey arie [id number] 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 S/P hysterectomy 10/29/2016 Vulvar lesion 10/29/2016 Type 2 diabetes mellitus with complication 10/11/2016 Diffuse pain 10/11/2016 Near syncope 06/28/2016 UTI (urinary tract infection) 05/24/2016 Generalized abdominal pain 05/24/2016 documented as of this encounter (statuses as of 08/20/2019) Resolved Problems Problem Noted Date Resolved Date Hematuria 10/29/2016 10/29/2016 documented as of this encounter (statuses as of 08/20/2019) Immunizations Name Administration Dates Next Due Influenza [...] Treatment Date Type Specialty Care Team Description 09/28/2019 Office Visit Family Medicine Kevon Donis MD [address] [place] [address] Dr [address] [place] [address] 77 15 [phone] Health Maintenance Due Date Last Done Comments [...] Type Group MEDICARE MEDICARE PART xxxxxxxxxxx 2003-Prese [phone] [address] Medicare A & B nt 2 [id number] [place] [id number] [facility] MEDICAID OF xxxxxxxxx 2018-Presen [phone] [address] Medicaid [place] t 0 [id number] [place] [address] documented as of this encounter Advance Directives Name Relationship Healthcare Agent Communication Relationship oJse Guerrier Child Primary healthcare agent [email or web address] Obdulio Samson [facility] agent (Mobile)
--- OUTSIDE RECORDS SUMMARY | 2019-08-21 18:27 | XMS REPORT | Summary of Care ---
:1945 Author Organization [facility] - [facility] Address [address] [place] [address] Care Team Providers Name Role Phone Katie Henderson MD Primary Care Provider Leah Poon Automation And Controls Supervisor Sammi Eason Insurance Hmo Reason for Visit Reason Comments Orders Encounter Details Date Type Department Care Team Description 07/30/2019 Telephone [facility] Pediatric and Anne Henderson Orders Adult Primary Care- MD Tineo [address] [place] [address], Suite [facility] 10 3 205 [place] [address] [place] [address] [phone] Allergies Active Allergy Reactions Severity Noted Date Comments Morphine Hallucinations 06/28/2016 documented as of this encounter (statuses as of 08/09/2019) Medications Medication Sig Dispensed Refills Start End [...] mouth at bedtime. 0 Other chronic pain lisinopril 10 mg Take 1 tablet by 90 tablet 0 Discontinued tabletIndications: mouth daily. 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 10/17/2017 mellitus Overgrown toenails 10/17/2017 Colon cancer 06/05/2017 Malignant neoplasm of colon, unspecified part of colon 05/06/2017 Overview: Added automatically from request for kinsey schofieldy [id number] Colonic mass 03/14/2017 Overview: Added automatically from request for kinsey arie [id number] 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 S/P hysterectomy 10/29/2016 Vulvar lesion 10/29/2016 Type 2 diabetes mellitus with complication 10/11/2016 Diffuse pain 10/11/2016 Near syncope 06/28/2016 UTI (urinary tract infection) 05/24/2016 Generalized abdominal pain 05/24/2016 documented as of this encounter (statuses as of 08/09/2019) Resolved Problems Problem Noted Date Resolved Date Hematuria 10/29/2016 10/29/2016 documented as of this encounter (statuses as of 08/09/2019) Immunizations Name Administration Dates Next Due Influenza [...] Date Type Specialty Care Team Description 08/10/2019 Office Visit Family Medicine Kevon Donis MD [address] [place] [address] 205 [place], [place] [address] 08/17/2019 Office Visit Internal Medicine Demi Henderson MD [address] [place] [address] 103 [place], [place] [address] Health Maintenance Due Date Last [...] BOX Medicare A & B nt 2 [id number] [place] [address] [facility] MEDICAID OF xxxxxxxxx 2018-Presen [phone] [address] Medicaid [place] t 0 [id number] [place] [address] documented as of this encounter Advance Directives Name Relationship Healthcare Agent Communication Relationship Jose Guerrier Child Primary healthcare agent Obdulio Samson [facility] agent (Mobile)
--- OUTSIDE RECORDS SUMMARY | 2019-08-21 18:27 | XMS REPORT | Summary of Care ---
:1945 Author Organization [facility] - [facility] Address [address] [place] [address] Care Team Providers Name Role Phone Katie Henderson MD Primary Care Provider Leah Poon Guest Relation Officer Sammi Eason Insurance Hmo Reason for Visit Reason Comments Refill Request Encounter Details Date Type Department Care Team Description 08/19/2019 Refill [facility] Pediatric and Kevon Aguilar MD Refill Request Adult Primary Care- [address] [facility] [address] Tineo [address] [address] 205 [place] [address] [phone] Allergies Active Allergy Reactions Severity Noted Date Comments Morphine Hallucinations 06/28/2016 documented as of this encounter (statuses as of 08/19/2019) Medications Medication Sig Dispensed Refills Start End [...] tabletIndications: MOUTH EVERY DAY 0 Essential hypertension PREGABALIN 300 mg TAKE 1 CAPSULE BY 60 capsule 0 Active capsuleIndications MOUTH TWICE DAILY 0 : Other chronic pain pregabalin 300 mg Take 1 capsule by 60 capsule 1 Discontinued capsuleIndications mouth 2 (two) 0 20 : Other chronic times daily. 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 10/17/2017 mellitus Overgrown toenails 10/17/2017 Colon cancer 06/05/2017 Malignant neoplasm of colon, unspecified part of colon 05/06/2017 Overview: Added automatically from request for kinsey arie [id number] Colonic mass 03/14/2017 Overview: Added automatically from request for kinsey arie [id number] 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 S/P hysterectomy 10/29/2016 Vulvar lesion 10/29/2016 Type 2 diabetes mellitus with complication 10/11/2016 Diffuse pain 10/11/2016 Near syncope 06/28/2016 UTI (urinary tract infection) 05/24/2016 Generalized abdominal pain 05/24/2016 documented as of this encounter (statuses as of 08/19/2019) Resolved Problems Problem Noted Date Resolved Date Hematuria 10/29/2016 10/29/2016 documented as of this encounter (statuses as of 08/19/2019) Immunizations Name Administration Dates Next Due Influenza [...] filedocumented in this encounter Plan of Treatment Health Maintenance Due Date [...] filedocumented in this encounter Visit Diagnoses Diagnosis Other chronic pain documented in this encounter Insurance Payer Benefit Plan / Subscriber ID Effective Dates Phone Addre ss Type Group MEDICARE MEDICARE PART xxxxxxxxxxx 2003-Prese [phone] [address] Medicare A & B nt 2 [id number] [place] [address] [facility] MEDICAID OF xxxxxxxxx 2018-Presen [phone] [address] Medicaid [place] t 0 [id number] [place] [address] documented as of this encounter Advance Directives Name Relationship Healthcare Agent Communication Relationship Jose Guerrier Child Primary healthcare agent [email or web address] Obdulio Samson [facility] agent (Mobile)
[2019-08-21] MEDS ORDERED: NA CHLORIDE 0.9% 1,000 ML ONE (19:00)
[2019-08-21 19:17] LABS: Absolute Lymphocytes (CBC) 1.1 K/uL (0.7-4.9); Basophils % 1.3 % (0-1.3); Hematocrit 29.9 % (36.0-45.0); Lymphocytes % 21.8 % (15.3-44.8); RBC Red Blood Cell Count 3.52 M/uL (3.86-4.86)
[2019-08-21 19:33] LABS: Albumin 3.2 g/dL (3.4-5.0); Bilirubin Total 0.6 mg/dL (0.2-1.0); Potassium 4.2 mmol/L (3.5-5.1); Protein, Total 6.8 g/dL (6.4-8.2)
--- NOTE | 2019-08-21 20:57 | RAD REPORT ---
EXAM DESCRIPTION: RAD - Chest Single View - 08/21/2019 8:31 pm CLINICAL HISTORY: neck pain, SOB Chest pain. COMPARISON: Chest Single View dated 02/22/2019; Chest Single View dated 01/24/2019; Chest Single Vie w dated 10/01/2018; Chest Single View dated 06/24/2018 FINDINGS: Portable technique limits examination quality. The lungs are mildly emphysematous but grossly clear. The heart is normal in size. No displaced fract ures. IMPRESSION: Mild COPD.
--- NOTE | 2019-08-21 21:17 | RAD REPORT ---
EXAM DESCRIPTION: CT - Soft Tissue Neck Wo Contr CLINICAL HISTORY: neck pain Pain and swelling in neck. COMPARISON: CT HEAD CSPINE MPR WO CONTRAST dated 11/04/[address] scans are performed using dose optimization technique as appropriate and may includ e automated exposure control or mA/KV adjustment according to patient size. FINDINGS: Examination is limited due to lack of IV contrast material. Nasopharyngeal tissues are normal in appearance. Fossa Rosenmller are normal. No prevertebral fluid collections. Both carotid arteries are retropharyngeal course. No intrinsic neck mass seen. No bulky adenopathy in the neck. Salivary glands are normal in appearance. Mild ground-glass opacities is seen in both lung apices. Included intracranial contents are unremarka ble. IMPRESSION: No acute abnormality is detected.
--- NOTE | 2019-08-21 21:55 | ER ---
Nurse's Notes [facility] Name: Leydi Guerrier Age: 73 yrs Sex: Female : 1945 Arrival Date: 08/21/2019 Time: 18:18 Bed 6 Private MD: Diagnosis: Dehydration;Acute Kidney Injury;Pneumonia Presentation: 08/20 18:19 Chief complaint: EMS states: Generalized weakness, nausea, and sore throat x 2 days. BP hb 138/62, T97.2, BGL 184. Coronavirus screen: Proceed with normal triage. Ebola Screen: No symptoms or risks identified at this time. Initial Sepsis Screen: Does the patient meet any 2 criteria? No. Patient's initial sepsis screen is negative. Does the patient have a suspected source of infection? No. Patient's initial sepsis screen is negative. Risk Assessment: Do you want to hurt yourself or someone else? Patient reports no desire to harm self or others. Onset of symptoms was August 20, 2019. 18:19 Method Of Arrival: EMS: [facility] hb 18:19 Acuity: ADY 3 hb Historical: - Allergies: 18:22 Morphine; hb - Home Meds: 18:22 Hilda Oral [Active]; atorvastatin Oral [Active]; gabapentin Oral [Active]; Glipizide hb Oral [Active]; Iron CR Oral [Active]; Januvia Oral [Active]; lisinopril 10 mg Oral tab 1 tab once daily [Active]; Lyrica Oral [Active]; metformin 500 mg Oral tab 1 tab 2 times per day for Type 2 Diabetes Mellitus [Active]; Naproxen Oral [Active]; oxybutynin chloride 10 mg Oral tr24 1 tab once daily [Active]; Plavix 75 mg Oral tab 1 tab once daily for Myocardial Reinfarction Prevention [Active]; pregabalin 75 MG Oral 1 cap 2 times per day [Active]; Protonix 40 mg Oral TbEC 1 tab once daily [Active]; Protonix Oral [Active]; RESTASIS [Active]; simvastatin 20 mg Oral tab 1 tab once daily for Mixed Hyperlipidemia [Active]; - PMHx: 18:22 Atrial Fib; CAD; COLON CA; CVA; Diabetes - IDDM; Glaucoma; High Cholesterol; hb Hypertension; legally blind; - Immunization history:: Adult Immunizations up to date. - Social history:: Smoking status: Patient denies any tobacco usage or history of. Screenin:50 Abuse screen: Denies threats or abuse. Denies injuries from another. Nutritional sv screening: No deficits noted. Tuberculosis screening: No symptoms or risk factors identified. Fall Risk None identified. Assessment: 18:50 General: Appears in no apparent distress. uncomfortable, Behavior is calm, cooperative, sv appropriate for age. Pain: Complains of pain in throat. Neuro: Level of Consciousness is awake, alert, obeys commands, Oriented to person, place, time, situation, Moves all extremities. Reports weakness. Respiratory: Airway is patent Respiratory effort is even, unlabored, Respiratory pattern is regular, symmetrical. EENT: Throat is clear is reddened. 19:20 General: Appears in no apparent distress. comfortable, Behavior is calm, cooperative, rr5 appropriate for age, awaiting for results. 19:20 Pain: Complains of pain in throat. Neuro: Level of Consciousness is awake, alert, obeys rr5 commands, Oriented to person, situation, Appropriate for age blind. Moves all extremities. Cardiovascular: Capillary refill < 3 seconds Patient's skin is warm and dry. Respiratory: Airway is patent Respiratory effort is even, unlabored, Respiratory pattern is regular, symmetrical, Breath sounds are clear bilaterally. GI: No signs and/or symptoms were reported involving the gastrointestinal system. : No signs and/or symptoms were reported regarding the genitourinary system. EENT: Throat is clear is reddened with gag reflex present, Reports pain in throat. Derm: Skin is intact, is fragile, is thin, Skin temperature is warm. Musculoskeletal: Capillary refill < 3 seconds, Reports weakness in whole body. 20:30 Reassessment: Patient appears in no apparent distress at this time. No changes from rr5 previously documented assessment. 21:30 Reassessment: Patient appears in no apparent distress at this time. Patient is alert, rr5 oriented x 3, equal unlabored respirations, skin warm/dry/pink. patient is blind, side rails raised and secured. 23:00 Reassessment: call made multiple times to leo em [phone], did not pick the rr5 call. 23:40 Reassessment: spoke to leo em [phone] updated for the plan of care. rr5 23:40 Reassessment: Patient appears in no apparent distress at this time. No changes from rr5 previously documented assessment. Patient is alert, oriented x 3, equal unlabored respirations, skin warm/dry/pink. for admission, patient and family member informed and agreed. 08/21 00:50 Reassessment: Patient appears in no apparent distress at this time. Patient is alert, rr5 oriented x 3, equal unlabored respirations, skin warm/dry/pink. transfer to room 413 awake alert no complaints made, IV cannula intact. Vital Signs: 08/20 18:19 BP 110 / 92; Pulse 63; Resp 15; Temp 97.8; Pulse Ox 100% ; Weight 69.85 kg; Height 5 hb ft. 2 in. (157.48 cm); Pain 8/10; 19:10 BP 96 / 47; Pulse 65; Resp 16; Temp 98; Pulse Ox 99% ; rr5 20:27 BP 103 / 53; Pulse 58; Resp 17; Pulse Ox 99% ; rr5 21:30 BP 110 / 62; Pulse 55; Resp 16; Temp 98.2; Pulse Ox 98% ; rr5 22:30 BP 92 / 65; Pulse 60; Resp 17; Pulse Ox 98% ; rr5 23:30 BP 115 / 75; Pulse 58; Resp 17; Pulse Ox 100% ; rr5 08/21 00:35 BP 96 / 56; Pulse 16; Resp 15; Temp 97.8; Pulse Ox 99% ; rr5 08/20 18:19 Body Mass Index 28.17 (69.85 kg, 157.48 cm) hb ED Course: 08/20 18:18 Patient arrived in ED. em1 18:20 Bruno Oro PA is PHCP. jmm 18:20 Guero Bates MD is Attending Physician. jmm 18:20 Triage completed. hb 18:22 Arm band placed on. hb 18:50 Patient has correct armband on for positive identification. Bed in low position. Call sv light in reach. Side rails up X2. Pulse ox on. NIBP on. 19:00 Inserted saline lock: 20 gauge in right antecubital area, using aseptic technique. sv Blood collected. Flushed right antecubital with 5 ml normal saline. 19:05 CBC with Diff Sent. sv 19:18 Report given to Txe WOLFE and Dae RN. sv 19:29 Dae Brar, RN is Primary Nurse. rr5 20:05 Repeat lab(s) drawn. by me, sent to lab. Second set of blood cultures drawn by me. rr5 20:05 Inserted saline lock: 22 gauge in right hand, using aseptic technique. Blood collected. rr5 20:25 EKG done, by ED staff, reviewed by Bruno GARCIA. rr5 20:31 Chest Single View XRAY In Process Unspecified. EDMS 21:04 Soft Tissue Neck Wo Contr In Process Unspecified. EDMS 21:53 Geneva Kennedy MD is Hospitalizing Provider. [facility] 08/21 00:00 covid. rr5 00:50 No provider procedures requiring assistance completed. Patient admitted, IV remains in rr5 place. intact, No redness/swelling at site. Administered Medications: 08/20 19:04 Drug: NS 0.9% 1000 ml Route: IV; Rate: 1 bolus; Site: right antecubital; sv 20:15 Follow up: Response: No adverse reaction; IV Status: Completed infusion; IV Intake: rr5 1000ml 22:11 Drug: Rocephin 1 grams Route: IV; Rate: calculated rate; Site: right antecubital; rr5 23:00 Follow up: Response: No adverse reaction; IV Status: Completed infusion; IV Intake: [id number] Intake: 20:15 IV: 1000ml; Total: 1000ml. rr5 23:00 IV: 10ml; Total: 1010ml. rr5 Outcome: 21:54 Decision to Hospitalize by Provider. [facility] 08/21 00:50 Admitted to Tele accompanied by tech, via stretcher, room 413, with chart, Report rr5 called to demario Condition: stable Instructed on the need for admit. 00:53 Patient left the ED. jd3 Signatures: Dispatcher [employer] EDMelisa Caballero, RN Bruno Greenwood PA PA [facility] Ricky Castro em1 Beata Cabral, RN Tex Villagomez RN RN jd3 Dae Brar, RN RN rr5
--- NOTE | 2019-08-21 21:55 | EDPHYS ---
Physician Documentation [facility] Name: Leydi Guerrier Age: 73 yrs Sex: Female : 1945 Arrival Date: 08/21/2019 Time: 18:18 Bed 6 Private MD: ED Physician Guero Bates HPI: 08/20 18:42 This 73 yrs old Female presents to ER via EMS with complaints of General jmm Weakness, Sore Throat. 18:42 The patient presents with sore throat. Onset: The symptoms/episode began/occurred 2 jmm day(s) ago. Modifying factors: The symptoms are alleviated by nothing, the symptoms are aggravated by fluids. This is a 73 YEAR old female with a history of colon can, atrial fibrillation, CVA, DM that presents to the ED with complaints of sore throat and weakness over the past 2 days. Denies cough or shortness of breath. Patient states she collapsed just prior to arrival but denies unilateral weakness. . Historical: - Allergies: 18:22 Morphine; hb - Home Meds: 18:22 Hilda Oral [Active]; atorvastatin Oral [Active]; gabapentin Oral [Active]; Glipizide hb Oral [Active]; Iron CR Oral [Active]; Januvia Oral [Active]; lisinopril 10 mg Oral tab 1 tab once daily [Active]; Lyrica Oral [Active]; metformin 500 mg Oral tab 1 tab 2 times per day for Type 2 Diabetes Mellitus [Active]; Naproxen Oral [Active]; oxybutynin chloride 10 mg Oral tr24 1 tab once daily [Active]; Plavix 75 mg Oral tab 1 tab once daily for Myocardial Reinfarction Prevention [Active]; pregabalin 75 MG Oral 1 cap 2 times per day [Active]; Protonix 40 mg Oral TbEC 1 tab once daily [Active]; Protonix Oral [Active]; RESTASIS [Active]; simvastatin 20 mg Oral tab 1 tab once daily for Mixed Hyperlipidemia [Active]; - PMHx: 18:22 Atrial Fib; CAD; COLON CA; CVA; Diabetes - IDDM; Glaucoma; High Cholesterol; hb Hypertension; legally blind; - Immunization history:: Adult Immunizations up to date. - Social history:: Smoking status: Patient denies any tobacco usage or history of. ROS: 18:42 Cardiovascular: Negative for chest pain, palpitations, and edema, Abdomen/GI: Negative jmm for abdominal pain, nausea, vomiting, diarrhea, and constipation, Back: Negative for injury and pain. 18:42 Constitutional: Positive for fatigue. 18:42 ENT: Positive for sore throat. 18:42 Respiratory: 18:42 Neuro: Positive for weakness. 18:42 All other systems are negative. Exam: 18:42 Head/Face: atraumatic. Eyes: EOMI, no conjunctival erythema appreciated jmm 18:42 Chest/axilla: Normal chest wall appearance and motion. Cardiovascular: Regular rate and rhythm. No edema appreciated Respiratory: Normal respirations, no respiratory distress appreciated Abdomen/GI: Non distended, soft Back: Normal ROM Skin: General appearance color normal MS/ Extremity: Moves all extremities, no obvious deformities appreciated, no edema noted to the lower extremities Psych: Behavior is normal, Mood is normal, Patient is cooperative and pleasant 18:42 Constitutional: The patient appears alert, awake, uncomfortable. 18:42 ENT: Posterior pharynx: is normal. 18:42 Neck: Lymph nodes: lymphadenopathy is appreciated, anterior cervical nodes. 18:42 Neuro: Orientation: is normal, Mentation: is normal, Memory: is normal. 18:42 Psych: Behavior/mood is pleasant, cooperative. Vital Signs: 18:19 BP 110 / 92; Pulse 63; Resp 15; Temp 97.8; Pulse Ox 100% ; Weight 69.85 kg; Height 5 hb ft. 2 in. (157.48 cm); Pain 8/10; 19:10 BP 96 / 47; Pulse 65; Resp 16; Temp 98; Pulse Ox 99% ; rr5 20:27 BP 103 / 53; Pulse 58; Resp 17; Pulse Ox 99% ; rr5 21:30 BP 110 / 62; Pulse 55; Resp 16; Temp 98.2; Pulse Ox 98% ; rr5 22:30 BP 92 / 65; Pulse 60; Resp 17; Pulse Ox 98% ; rr5 23:30 BP 115 / 75; Pulse 58; Resp 17; Pulse Ox 100% ; rr5 08/21 00:35 BP 96 / 56; Pulse 16; Resp 15; Temp 97.8; Pulse Ox 99% ; rr5 08/20 18:19 Body Mass Index 28.17 (69.85 kg, 157.48 cm) hb MDM: 08/20 18:42 Patient medically screened. [facility] 21:52 Data reviewed: vital signs, nurses notes. Counseling: I had a detailed discussion with kim the patient and/or guardian regarding: the historical points, exam findings, and any diagnostic results supporting the discharge/admit diagnosis, lab results, radiology results, the need for further work-up and treatment in the hospital. ED course: I discussed the patient with Dr. Kennedy whom accepted admission. . 08/20 18:46 Order name: CBC with Diff [facility] 08/20 18:46 Order name: CMP; Complete Time: 19:36 [facility] 08/20 18:46 Order name: Strep; Complete Time: 20:20 [facility] 08/20 18:46 Order name: Gregg Screen Profile; Complete Time: 20:20 [facility] 08/20 18:46 Order name: Procalcitonin; Complete Time: 20:20 [facility] 08/20 18:46 Order name: Lactate; Complete Time: 19:42 [facility] 08/20 18:46 Order name: Blood Culture Adult (2) [facility] 08/20 18:46 Order name: Flu; Complete Time: 20:20 [facility] 08/20 18:46 Order name: CBC with Automated Diff; Complete Time: 19:19 [facility] 08/20 19:52 Order name: Troponin (emerg Dept Use Only); Complete Time: 20:58 [facility] 08/20 20:02 Order name: Throat Culture [facility] 08/20 22:38 Order name: Lactate Sepsis 2 HR Follow-up; Complete Time: 22:40 [facility] 08/20 22:43 Order name: Comprehensive Metabolic Panel [facility] 08/20 19:42 Order name: Chest Single View XRAY; Complete Time: 20:58 [facility] 08/20 19:52 Order name: EKG - Nurse/Tech; Complete Time: 20:25 [facility] 08/20 19:52 Order name: Urine Dipstick-Ancillary (obtain specimen); Complete Time: 00:47 [facility] 08/20 20:37 Order name: Soft Tissue Neck Wo Contr; Complete Time: 21:23 [facility] 08/20 22:43 Order name: Comprehensive Metabolic Panel [facility] 08/20 22:43 Order name: Magnesium [facility] 08/20 22:44 Order name: CONS Physician Consult [facility] Administered Medications: 19:04 Drug: NS 0.9% 1000 ml Route: IV; Rate: 1 bolus; Site: right antecubital; sv 20:15 Follow up: Response: No adverse reaction; IV Status: Completed infusion; IV Intake: rr5 1000ml 22:11 Drug: Rocephin 1 grams Route: IV; Rate: calculated rate; Site: right antecubital; rr5 23:00 Follow up: Response: No adverse reaction; IV Status: Completed infusion; IV Intake: [id number] Disposition: 08/21 07:10 Co-signature as Attending Physician, Guero Bates MD. [email or web address] Disposition: 08/21/19 21:54 Hospitalization ordered by Geneva Kennedy for Observation. Preliminary diagnosis are Dehydration, Acute Kidney Injury, Pneumonia. - Bed requested for Telemetry/MedSurg (observation). - Status is Observation. jd3 - Condition is Stable. - Problem is new. - Symptoms are unchanged. Signatures: Dispatcher [employer] Melisa Goins RN RN sv Webb, Martha RN Bruno Francis PA PA [facility] Beata Cabral, RN Tex Villagomez RN RN jDae Durant RN RN rr5 Guero Bates MD MD [email or web address] Corrections: (The following items were deleted from the chart) 08/20 22:47 21:54 Hospitalization Ordered by Geneva Kennedy MD for Observation. Preliminary diagnosis is Dehydration; Acute Kidney Injury; Pneumonia. Bed requested for Telemetry/MedSurg (observation). Status is Observation. Condition is Stable. Problem is new. Symptoms are unchanged. [facility] 08/21 00:53 08/20 22:47 08/21/2019 21:54 Hospitalization Ordered by Geneva Kennedy MD for jd3 Observation. Preliminary diagnosis is Dehydration; Acute Kidney Injury; Pneumonia. Bed requested for Telemetry/MedSurg (observation). Status is Observation. Condition is Stable. Problem is new. Symptoms are unchanged.
[2019-08-21] MEDS ORDERED: ALPRAZOLAM 0.25 MG TABLET PO PRN (22:40)
[2019-08-21] MEDS ORDERED: ONDANSETRON 4 MG/2 ML VIAL IV PRN (22:40)
[2019-08-21] MEDS ORDERED: ACETAMINOPHEN 500 MG TAB PO PRN (22:40)
[2019-08-22] MEDS: NA CHLORIDE 0.9% 1,000 ML IV SCH ×2 (01:15→11:44)
[2019-08-22 01:28] VITALS: BMI 32.9
[2019-08-22 02:34] LABS: Urine Appearance CLOUDY; Urine Blood NEGATIVE (NEG); Urine Color DK YELLOW; Urine Glucose 1+ (NEG); Urine Protein TRACE (NEG); Urine Urobilinogen 0.2 mg/dL (0.2-1.0)
[2019-08-22 02:44] LABS: Urine Bilirubin NEGATIVE (NEG); Urine Microscopic Reflex ORDER UMIC
[2019-08-22 02:51] LABS: Urine Amorphous Sediment 1+ /HPF (NONE SEEN); Urine Bacteria >50 /HPF (<20); Urine Culture Reflex Order REFLEXED; Urine Mucus 1+ /HPF (NONE SEEN); Urine RBC <5 /HPF (NONE SEEN)
[2019-08-22 05:57] LABS: Absolute Lymphocytes (CBC) 1.5 K/uL (0.7-4.9); Basophils % 2.2 % (0-1.3); MPV 10.4 fL (7.6-11.3); RBC Red Blood Cell Count 3.12 M/uL (3.86-4.86)
[2019-08-22 06:28] LABS: Albumin 2.6 g/dL (3.4-5.0); Bilirubin Total 0.4 mg/dL (0.2-1.0); Phosphorus 4.1 mg/dL (2.5-4.9); Potassium 3.8 mmol/L (3.5-5.1); Protein, Total 5.8 g/dL (6.4-8.2)
--- NOTE | 2019-08-22 09:07 | P.HP ---
Certification for Inpatient Patient admitted to: Inpatient With expected LOS: >2 Midnights Patient will require the following post-hospital care: None Practitioner: I am a practitioner with admitting privileges, knowledge of patient current condition, hospital course, and medical plan of care. Services: Services provided to patient in accordance with Admission requirements found in Title 42 Section 412.3 of the Code of Federal Regulations Patient History Date of Service: 08/21/19 Reason for admission: Acute kidney injury; sore throat; decreased appetite History of Present Illness: Patient is a 73-year-old female comes to the hospital feeling weak and fatigued. She had a sore throat but her workup in the ER including a CT of the neck and cultures did not reveal any significant abnormalities. Patient also had labs performed. Patient had acute renal insufficiency. Patient's baseline GFR is greater than 60 but currently her GFR is roughly 15. She is not eating well, and she has been dehydrated. She will be admitted to the hospital for aggressive IV hydration. Incidentally nursing staff also found she was hypothermic. Will check thyroid studies as well. Will put her on a Marychuy Hugger. Patient will be admitted and she will also be ruled out for COVID-19. Allergies morphine Adverse Reaction (Unknown, Verified 10/19/18 16:16) unknown Home Medications: Atorvastatin Calcium 20 mg PO BEDTIME 06/25/18 Sitagliptin Phosphate [Januvia] 25 mg PO DAILY 06/25/18 Pantoprazole [Protonix Tab*] 40 mg PO DAILY #30 tab 06/29/18 Glipizide [Glipizide ER] 1 tab PO TID 12/02/18 Pregabalin [Lyrica] 300 mg PO BID 12/02/18 Travoprost (Benzalkonium) [Travatan 0.004% Eye Drop] 1 gtt EACH EYE BEDTIME 02/23/19 lisinopriL [Lisinopril] 1 tab PO DAILY 02/23/19 Baclofen 2.5 mg PO DAILY 08/22/19 Repaglinide 0.5 mg PO TID 08/22/19 Rivaroxaban [Xarelto] 20 mg PO DAILY 08/22/19 - Past Medical/Surgical History Has patient received pneumonia vaccine in the past: Yes Diabetic: Yes -: Diabetic neuropathy -: CAD -: Diabetes mellitus type 2 [id number] -: Glaucoma -: Hyperlipidemia -: Obesity -: Recurrent UTI -: PVD -: Previous amputation of the great toe left -: Chronic osteomyelitis right 5th digit -: Cardiac stent -: Appendectomy -: boil lower back -: hysterectomy -: jc cataracts sx -: Jessy -: L big toe amputation Psychosocial/ Personal History: Lives at home with poor family support. - Family History Father Medical History: Heart disease Notes: heart attack. Mother Medical History: Diabetes, Other (see notes) Notes: . Alzheimer's - Social History Smoking Status: Unknown if ever smoked Alcohol use: No CD- Drugs: No Caffeine use: No Place of Residence: Home Review of Systems 10-point ROS is otherwise unremarkable Physical Examination - Vital Signs Temperature: 98.3 F Blood Pressure: 123/58 Pulse: 65 Respirations: 16 Pulse Ox (%): 98 - Physical Exam General: Alert, In no apparent distress, Oriented x3 HEENT: Atraumatic, PERRLA, Mucous membr. moist/pink, EOMI, Sclerae nonicteric Neck: Supple, 2+ carotid pulse no bruit, No LAD, Without JVD or thyroid abnormality Respiratory: Clear to auscultation bilaterally, Normal air movement Cardiovascular: Regular rate/rhythm, Normal S1 S2, No murmurs Gastrointestinal: Normal bowel sounds, Soft and benign, Non-distended, No tenderness Musculoskeletal: No clubbing, No swelling, No tenderness Integumentary: No rashes Neurological: Normal speech, Normal tone, Sensation intact, Cranial nerves 3-12 intact, Normal affect, Abnormal gait, Abnormal strength Lymphatics: No axilla or inguinal lymphadenopathy - Studies Laboratory Data (last 24 hrs) 08/21/19 19:00: Sodium 140, Potassium 4.2, BUN 39 H, Creatinine 3.25 H, Glucose 196 H, Total Bilirubin 0.6, AST 163 H, ALT 81 H, Alkaline Phosphatase 130 H 08/21/19 19:00: WBC 5.2, Hgb 9.7 L, Hct 29.9 L, Plt Count 131 L Microbiology Data (last 24 hrs): 08/21/19 18:55 Throat Group A Streptococcus Rapid Screen - Final 08/21/19 18:55 Nasopharnyx Influenza Type A Antigen Screen - Final 08/21/19 18:55 Nasopharnyx Influenza Type B Antigen Screen - Final Assessment & Plan - Problems (Diagnosis) (1) Acute kidney injury Current Visit: Yes Status: Acute (2) Dehydration Current Visit: Yes Status: Acute (3) Hypothermia Current Visit: Yes Status: Acute (4) Hypertension Current Visit: No Status: Chronic Qualifiers: Hypertension type: essential hypertension Qualified Code(s): I10 - Essential (primary) hypertension (5) PAD (peripheral artery disease) Current Visit: No Status: Chronic (6) Dementia Current Visit: No Status: Suspected Qualifiers: Dementia type: unspecified type Dementia behavioral disturbance: without behavioral disturbance Qualified Code(s): F03.90 - Unspecified dementia without behavioral disturbance (7) Diabetic ulcer of right fifth toe Current Visit: No Status: Resolved - Plan Plan: 1. IV hydration 2. Monitor renal function 3. Renal ultrasound 4. Check thyroids studies for hypothermia 5. Physical therapy evaluation 6. Strict blood pressure and blood sugar control 6. GI and DVT prophylaxis Discharge Plan: Home Plan to discharge in: Greater than 2 days - Advance Directives Does patient have a Living Will: No Does patient have a Durable POA for Healthcare: No - Code Status/Comfort Care Code Status Assessed: Yes Code Status: Full Code Critical Care: No Time Spent Managing PTS Care (In Minutes): 40
--- NOTE | 2019-08-22 09:21 | P.PN ---
Subjective Date of Service: 08/22/19 Patient is doing well with no new complaints. Clinically improving. Hypothermia resolved. COVID-19 test was negative. Review of Systems 10-point ROS is otherwise unremarkable Physical Examination - Vital Signs Temperature: 98.3 F Blood Pressure: 123/58 Pulse: 65 Respirations: 16 Pulse Ox (%): 98 - Physical Exam General: Alert, In no apparent distress, Oriented x2, Confused Respiratory: Clear to auscultation bilaterally, Normal air movement Cardiovascular: Regular rate/rhythm, Normal S1 S2 Gastrointestinal: Normal bowel sounds, Soft and benign, Non-distended, No tenderness, No rebound, No guarding Musculoskeletal: No tenderness Integumentary: No rashes Neurological: Normal speech, Normal tone, Sensation intact, Cranial nerves 3-12 intact - Studies Laboratory Data (last 24 hrs) 08/21/19 19:00: Sodium 140, Potassium 4.2, BUN 39 H, Creatinine 3.25 H, Glucose 196 H, Total Bilirubin 0.6, AST 163 H, ALT 81 H, Alkaline Phosphatase 130 H 08/21/19 19:00: WBC 5.2, Hgb 9.7 L, Hct 29.9 L, Plt Count 131 L Microbiology Data (last 24 hrs): 08/21/19 18:55 Throat Group A Streptococcus Rapid Screen - Final 08/21/19 18:55 Nasopharnyx Influenza Type A Antigen Screen - Final 08/21/19 18:55 Nasopharnyx Influenza Type B Antigen Screen - Final Medications List Reviewed: Yes Assessment & Plan - Problems (Diagnosis) (1) Acute kidney injury Current Visit: Yes Status: Acute (2) Dehydration Current Visit: Yes Status: Acute (3) Hypothermia Current Visit: Yes Status: Acute (4) Hypertension Current Visit: No Status: Chronic Qualifiers: Hypertension type: essential hypertension Qualified Code(s): I10 - Essential (primary) hypertension (5) PAD (peripheral artery disease) Current Visit: No Status: Chronic (6) Dementia Current Visit: No Status: Suspected Qualifiers: Dementia type: unspecified type Dementia behavioral disturbance: without behavioral disturbance Qualified Code(s): F03.90 - Unspecified dementia without behavioral disturbance (7) Diabetic ulcer of right fifth toe Current Visit: No Status: Resolved - Plan Plan: 1. IV hydration; renal function has improved 2. continue to monitor renal function closely 3. Renal ultrasound pending 4. Check thyroids studies for hypothermia 5. Physical therapy evaluation 6. Strict blood pressure and blood sugar control 6. GI and DVT prophylaxis Discharge Plan: Home Plan to discharge in: Greater than 2 days - Advance Directives Does patient have a Living Will: No Does patient have a Durable POA for Healthcare: No - Code Status/Comfort Care Code Status: Full Code Critical Care: No Time Spent Managing PTS Care (In Minutes): 30
[2019-08-22] MEDS: PANTOPRAZOLE 40MG TABLET PO SCH (11:45)
[2019-08-22] MEDS: PREGABALIN 150 MG CAP PO SCH ×2 (11:45→21:35)
[2019-08-22] MEDS: BACLOFEN 10 MG TAB PO SCH (11:46)
[2019-08-22] MEDS: SITAGLIPTIN PHOS 100 MG TAB PO SCH (11:47)
[2019-08-22] MEDS ORDERED: GLIPIZIDE PO SCH ×2 (14:00→21:00)
[2019-08-22] MEDS ORDERED: REPAGLINIDE 0.5 MG TABLET PO SCH (14:00)
[2019-08-22] MEDS: GLIPIZIDE S.A. 5 MG TAB PO SCH (17:00)
[2019-08-22] MEDS ORDERED: RIVAROXABAN 20 MG TABLET PO SCH (17:00)
[2019-08-22] MEDS ORDERED: HOME MED 1 EA UNK (Travoprost (Benzalkonium) [Travatan 0.004% Eye Drop] 1 GTT) EACH EYE SCH (21:00)
[2019-08-22] MEDS ORDERED: ATORVASTATIN 20 MG TAB PO SCH (21:00)
[2019-08-22] MEDS ORDERED: HOME MED 1 EA UNK (Pregabalin [Lyrica] 300 MG) PO SCH (21:00)
[2019-08-22] MEDS ORDERED: REPAGLINIDE 0.5 MG PO SCH (21:00)
--- NOTE | 2019-08-22 22:47 | CON ---
Date of Consultation: 08/22/2019 History Of Present Illness: Patient is admitted to the hospital because of generalized weakness. She was found to have elevated BUN and creatinine. Nephrology consultation is requested for acute on chronic kidney injury. Creatinine level is elevated up to 3.25, baseline creatinine previously was ranging from 0.6 to 1.16. Patient developed severe acute kidney injury, which is nonoliguric. Electrolytes are stable. Potassium level was within normal limits. There is no evidence of metabolic acidosis. Patient is a 73-year-old woman. She came to the hospital because of generalized weakness. She was feeling fatigued and had decreased p.o. intake. She denies diarrhea. She was complaining of sore throat. A CT scan of the neck and culture did not reveal significant abnormalities. Patient was found to have severe acute kidney injury. GFR dropped below 30 and previous GFR was ranging from 55 to 65. She was not eating well. She got volume depleted and was started on IV fluids. Renal function somewhat improved since yesterday. The patient was admitted to the hospital to rule out COVID-19 infection. Review of Systems: GENERAL: Fatigue. Denies fever or chills. Eyes: Denies new vision changes. Ears, Nose, Mouth and Throat: She has had a sore throat. Respiratory: She has some dyspnea on exertion. Cardiovascular: Denies chest pain and syncope. GI: Denies nausea, vomiting. She had decreased appetite. : Denies hematuria or dysuria. All other systems reviewed and all are negative. Past Medical History: coronary artery disease, [id number] diabetes mellitus, glaucoma, hyperlipidemia, obesity, recurrent UTI, peripheral vascular disease, previous amputation of the great left toe, chronic osteomyelitis of right fifth digit, cardiac stent, appendectomy, boil of lower back, hysterectomy, bilateral cataract surgery, cholecystectomy, left big toe amputation. Family History: Father had heart attack and was due to heart attack. Mother with diabetes mellitus, Alzheimer disease. Social History: Negative for tobacco, alcohol, or illicit drugs. Physical Examination: General: The patient is alert, oriented x3. Eyes: Anicteric sclerae. EOMI. Ears, Nose, Mouth and Throat: Oral mucosa moist. No pallor. Neck: Supple. No bruits. Lungs: Clear to auscultation bilaterally. Heart: S1, S2. Abdomen: Soft, benign. Extremities: No edema. Laboratory Data: Sodium 140, potassium 4.2, BUN 39, creatinine 3.25, glucose 196, total bilirubin 0.6, AP 130. WBC 5.2, hemoglobin 9.7, hematocrit 29.9, platelet count is 131,000. Throat strep rapid screen right now negative. Impression And Plan: 1. Acute kidney injury secondary to volume depletion and renal hypoperfusion. Continue IV fluids. Renal function is improving. Plan is to monitor CK level to rule out rhabdomyolysis. 2. Hypertension. Continue blood pressure medications. DONOVAN inhibitor is on hold due to acute kidney injury. 3. Hypothermia and dehydration. Continue mild hydration. 4. Diabetic ulcer of the right fifth toe. Continue antibiotic. Adjust treatment according to renal function. 5. Diabetes mellitus with renal manifestation. Monitor proteinuria panel. Avoid metformin. 6. Hypokalemia. Potassium level is 3.1. On previous occasion, during this admission, potassium level is within normal limits and there is no metabolic acidosis present. I spent total 36 min including 25 min to coordinate care plan. PRETTY/KEVIN Voice ID: [id number] Report ID: [id number] TAMMY
[2019-08-23] MEDS: NA CHLORIDE 0.9% 1,000 ML IV SCH ×3 (00:30→11:22)
[2019-08-23 06:40] LABS: Phosphorus 2.7 mg/dL (2.5-4.9); Potassium 3.8 mmol/L (3.5-5.1); Thyroid Stimulating Hormone 2.48 uIU/mL (0.360-3.740)
[2019-08-23 06:46] LABS: Absolute Lymphocytes (CBC) 1.6 K/uL (0.7-4.9); Hematocrit 29.8 % (36.0-45.0); Lymphocytes % 33.6 % (15.3-44.8); RBC Red Blood Cell Count 3.53 M/uL (3.86-4.86)
[2019-08-23] MEDS: GLIPIZIDE S.A. 5 MG TAB PO SCH (08:00)
--- NOTE | 2019-08-23 08:56 | EKG ---
Test Date: 2019-08-21 Test Time: 20:24:43 Optical Glass Wet Inspector: RR MEASUREMENT RESULTS: Intervals: Rate: 55 AL: 172 QRSD: 144 QT: 482 QTc: 461 [place]: P: 33 AL: 172 QRS: -55 T: 15 INTERPRETIVE STATEMENTS: Sinus bradycardia Right bundle branch block Left anterior fascicular block Bifascicular block Abnormal ECG Compared to ECG 02/22/2019 14:03:29 Right bundle-branch block now present Bifascicular block now present Sinus rhythm no longer present Myocardial infarct finding no longer present Electronically Signed On 08-23-19 08:54:09 CDT by Alexis Sam
[2019-08-23] MEDS: SITAGLIPTIN PHOS 100 MG TAB PO SCH (08:59)
[2019-08-23] MEDS: PANTOPRAZOLE 40MG TABLET PO SCH (09:00)
[2019-08-23] MEDS ORDERED: SITAGLIPTIN PHOSPHATE 25 MG PO SCH (09:00)
[2019-08-23] MEDS ORDERED: BACLOFEN PO SCH (09:00)
[2019-08-23] MEDS: PREGABALIN 150 MG CAP PO SCH (09:00)
[2019-08-23] MEDS: BACLOFEN 10 MG TAB PO SCH (09:00)
--- NOTE | 2019-08-23 12:52 | P.PN ---
Subjective Date of Service: 08/23/19 Patient was slightly confused. This was an attending urologist.She was able to move all her extremities and her strength was fairly good. She was not aphasic. She was just upset that nothing was being done for her. We will go ahead and Get physical therapy eval and get patient out of bed to ambulate. Clinically Renal function has been improving. Hypothermia resolved. COVID-19 test was negative. Possible that we may be able to discharge home later today. Patient will need home health with physical therapy. Dr. Duval to evaluate prior to discharge. Review of Systems 10-point ROS is otherwise unremarkable General: Other (Patient is slightly confused but answers questions appropriately ) Physical Examination - Vital Signs Temperature: 97.2 F Blood Pressure: 144/77 Pulse: 77 Respirations: 18 Pulse Ox (%): 100 - Physical Exam General: Alert, In no apparent distress, Oriented x1 HEENT: Atraumatic Respiratory: Clear to auscultation bilaterally, Normal air movement Cardiovascular: Regular rate/rhythm, Normal S1 S2, No murmurs Gastrointestinal: Normal bowel sounds, Soft and benign, Non-distended, No tenderness Musculoskeletal: No clubbing, No swelling, No tenderness Integumentary: No rashes Neurological: Normal tone, Sensation intact, Cranial nerves 3-12 intact - Studies Medications List Reviewed: Yes Assessment & Plan - Problems (Diagnosis) (1) Acute kidney injury Current Visit: Yes Status: Acute (2) Dehydration Current Visit: Yes Status: Acute (3) Hypothermia Current Visit: Yes Status: Acute (4) Hypertension Current Visit: No Status: Chronic Qualifiers: Hypertension type: essential hypertension Qualified Code(s): I10 - Essential (primary) hypertension (5) PAD (peripheral artery disease) Current Visit: No Status: Chronic (6) Dementia Current Visit: No Status: Suspected Qualifiers: Dementia type: unspecified type Dementia behavioral disturbance: without behavioral disturbance Qualified Code(s): F03.90 - Unspecified dementia without behavioral disturbance (7) Diabetic ulcer of right fifth toe Current Visit: No Status: Resolved - Plan Plan: 1. IV hydration; renal function has improved; renal function back to baseline 2. Vital signs were stable. Temperature has improved. Patient is no longer hypothermic 3. Renal ultrasound pending 4. Check thyroids studies for hypothermia 5. Physical therapy evaluation;May need to be arranged to be discharged home with home health 6. Strict blood pressure and blood sugar control 6. GI and DVT prophylaxis Discharge Plan: Home Plan to discharge in: 48 Hours - Advance Directives Does patient have a Living Will: No Does patient have a Durable POA for Healthcare: No - Code Status/Comfort Care Code Status: Full Code Critical Care: No Time Spent Managing PTS Care (In Minutes): 25
[2019-08-23 12:59] VITALS: O2SAT 100
--- NOTE | 2019-08-23 13:45 | P.DS ---
Admission Date: 08/21/19 Discharge Date: 08/23/19 Primary Care Provider: Dr. Henderson([facility]) Disposition: DC HOME/HOME HEALTH CARE Discharge Condition: GOOD Reason for Admission: Acute kidney injury; sore throat; decreased appetite Consultations: Nephrology-Dr. Macias Procedures: Medical problem list: Fatigue secondary to acute renal injury likely from dehydration complicated with hypothermia Hypertension Peripheral vascular disease Dementia likely vascular Diabetes mellitus type 2 Hyperlipidemia Chronic pain Chronic anti coagulation therapy History of CVA Patient legally blind Brief History of Present Illness: 73-year-old female with history of diabetes, hypertension, peripheral vascular disease and dementia. Patient presented with fatigue and weakness. Patient was found to acute renal injury and hypothermia. She was admitted for further evaluation. Hospital Course: Patient presented with fatigue and sore throat. CT scan unremarkable. Patient found to have acute renal injury likely from dehydration. Patient was also hypothermic. The patient was admitted for further evaluation and treatment. Patient given IV fluids. Nephrology was consulted. Her condition improved during the course of her stay. Medications were adjusted. At discharge patient back to her baseline renal function. No evidence of infection noted. Patient also with other chronic illnesses including hypertension, peripheral vascular disease, vascular dementia, diabetes, hyperlipidemia, chronic pain and takes chronic anti coagulation therapy. CT scan of head was obtained to evaluate her dementia. Patient refused. MRI could not be done due to patient refusal. Patient stable at this time. Plan of care address with son. Will recommend neurology evaluation as an outpatient. Her dementia likely continue to worsen. Patient may require long-term care in the future. Patient may require long-term placement as well. Recommend to recheck lab-BMP in 1 week to monitor her progress. Encourage good oral intake especially since patient is taking diabetic medication. Patient with hypertension. Blood pressures were elevated. Metoprolol was added. Patient will continue with metoprolol 25 mg 1 pill twice daily. Recommend to maintain blood pressure less 150/80. Further adjustment can be done by her PCP. Patient with peripheral vascular disease. Patient also takes chronic anti coagulation therapy. Suspect underlying history of atrial fibrillation. At discharge she will continue with Xarelto 20 mg daily. Will confirm her medication at discharge. Patient with history of CVA and dementia. Prior MRI reviewed. Suspect underlying vascular dementia. Recommend neurology evaluation as an outpatient. Patient may require long-term care in the future. As mentioned above. This was discussed with son. Patient with hyperlipidemia. At discharge she will continue with Lipitor 20 mg daily. Patient with chronic pain. Patient will continue with her current medication of Lyrica 300 mg 1 pill twice daily and baclofen 2.5 mg daily as needed for muscle spasm. Patient with underlying diabetes mellitus type 2. Patient takes multiple medications including Januvia 25 mg daily, glipizide 10 mg 3 times a day, and Repagllinide 0.5 mg 3 times a day. At discharge will recommend to decrease glip izide to 10 mg 1 pill twice daily. Glipizide and Repaglinide may cause hypoglycemia. Into elderly this should be monitored closely. Recommend to hold both medications if blood sugar remains less than 100 and with poor oral intake. Recommend to follow up with PCP to further monitor and address. Other considerations of therapy should be considered if blood sugar is low. Patient with GERD. Patient will continue with Protonix 40 mg daily. Vital Signs/Physical Exam: Temp Pulse Resp BP Pulse Ox 97.2 F 77 18 144/77 H 100 08/23/19 12:51 08/23/19 12:51 08/23/19 12:51 08/23/19 12:51 08/23/19 12:51 General: Alert, Demented HEENT: Atraumatic Neck: Supple Respiratory: Clear to auscultation bilaterally, Normal air movement Cardiovascular: Normal pulses, Regular rate/rhythm Gastrointestinal: Normal bowel sounds, Soft and benign, Non-distended Neurological: Normal speech, Dementia Laboratory Data at Discharge: WBC 4.7 K/uL (4.3-10.9) 08/23/19 05:57 Hgb 9.9 g/dL (12.0-15.0) L 08/23/19 05:57 Hct 29.8 % (36.0-45.0) L 08/23/19 05:57 Plt Count 128 K/uL (152-406) L 08/23/19 05:57 Sodium 145 mmol/L (136-145) 08/23/19 05:57 Potassium 3.8 mmol/L (3.5-5.1) 08/23/19 05:57 BUN 18 mg/dL (7-18) 08/23/19 05:57 Creatinine 1.03 mg/dL (0.55-1.3) D 08/23/19 05:57 Glucose 108 mg/dL (74-106) H 08/23/19 05:57 Phosphorus 2.7 mg/dL (2.5-4.9) 08/23/19 05:57 Magnesium 2.0 mg/dL (1.8-2.4) 08/23/19 05:57 Total Bilirubin 0.4 mg/dL (0.2-1.0) 08/22/19 05:31 AST 77 U/L (15-37) H 08/22/19 05:31 ALT 59 U/L (12-78) 08/22/19 05:31 Alkaline Phosphatase 109 U/L (45-117) 08/22/19 05:31 Home Medications: Atorvastatin Calcium 20 mg PO BEDTIME 06/25/18 Sitagliptin Phosphate [Januvia] 25 mg PO DAILY 06/25/18 Pantoprazole [Protonix Tab*] 40 mg PO DAILY #30 tab 06/29/18 Pregabalin [Lyrica] 300 mg PO BID 12/02/18 Travoprost (Benzalkonium) [Travatan 0.004% Eye Drop] 1 gtt EACH EYE BEDTIME 02/23/19 Baclofen 2.5 mg PO DAILY 08/22/19 Repaglinide 0.5 mg PO TID 08/22/19 Rivaroxaban [Xarelto*] 20 mg PO DAILY 08/22/19 Glipizide S.a. [Glucotrol Xl*] 10 mg PO BIDWM #60 tab 08/23/19 Metoprolol Tartrate [Lopressor] 25 mg PO BID #90 tab 08/23/19 New Medications: Glipizide S.a. [Glucotrol Xl*] 10 mg PO BIDWM #60 tab Metoprolol Tartrate [Lopressor] 25 mg PO BID #90 tab Patient Discharge Instructions: Patient presented with fatigue and sore throat. CT scan unremarkable. Patient found to have acute renal injury likely from dehydration. Patient was also hypothermic. The patient was admitted for further evaluation and treatment. Patient given IV fluids. Nephrology was consulted. Her condition improved during the course of her stay. Medications were adjusted. At discharge patient back to her baseline renal function. No ev idence of infection noted. Patient also with other chronic illnesses including hypertension, peripheral vascular disease, vascular dementia, diabetes, hyperlipidemia, chronic pain and takes chronic anti coagulation therapy. CT scan of head was obtained to evaluate her dementia. Patient refused. MRI could not be done due to patient refusal. Patient stable at this time. Plan of care address with son. Will recommend neurology evaluation as an outpatient. Her dementia likely continue to worsen. Patient may require long-term care in the future. Patient may require long-term placement as well. Recommend to recheck lab-BMP in 1 week to monitor her progress. Encourage good oral intake especially since patient is taking diabetic medication. Patient with hypertension. Blood pressures were elevated. Metoprolol was added. Patient will continue with metoprolol 25 mg 1 pill twice daily. Recommend to maintain blood pressure less 150/80. Further adjustment can be done by her PCP. Patient with peripheral vascular disease. Patient also takes chronic anti coagulation therapy. Suspect underlying history of atrial fibrillation. At discharge she will continue with Xarelto 20 mg daily. Will confirm her medication at discharge. Patient with history of CVA and dementia. Prior MRI reviewed. Suspect underlying vascular dementia. Recommend neurology evaluation as an outpatient. Patient may require long-term care in the future. As mentioned above. This was discussed with son. Patient with hyperlipidemia. At discharge she will continue with Lipitor 20 mg daily. Patient with chronic pain. Patient will continue with her current medication of Lyrica 300 mg 1 pill twice daily and baclofen 2.5 mg daily as needed for muscle spasm. Patient with underlying diabetes mellitus type 2. Patient takes multiple medications including Januvia 25 mg daily, glipizide 10 mg 3 times a day, and Repagllinide 0.5 mg 3 times a day. At discharge will recommend to decrease glipizide to 10 mg 1 pill twice daily. Glipizide and Repaglinide may cause hypoglycemia. Into elderly this should be monitored closely. Recommend to hold both medications if blood sugar remains less than 100 and with poor oral intake. Recommend to follow up with PCP to further monitor and address. Other considerations of therapy should be considered if blood sugar is low. Patient with GERD. Patient will continue with Protonix 40 mg daily. Diet: Renal Activity: Fall precautions Time spent managing pt's care (in minutes): 55
[2019-08-23 17:46] VITALS: BP 138/62; TEMP 97
--- NOTE | 2019-08-24 00:06 | PN ---
Date of Progress Note: 08/23/2019 Chief Complaint: Acute kidney injury. History Of Present Illness: Patient was admitted to the hospital because of generalized weakness. She was found to have elevated BUN and creatinine and nephrological consultation was requested for acute on chronic kidney injury. Creatinine level was up to 3.25. Baseline creatinine level previously was ranging from 0.6 to 1.16. Patient developed severe acute kidney injury due to prerenal azotemia. She has nonoliguric urine output. Potassium level was within normal. There was no evidence of metabolic acidosis. CT scan of the neck was done and a culture was obtained, did not show significant changes. Patient was admitted to the hospital to rule out COVID-19 infection. Review of Systems: Today, the patient is feeling better. Denies cough or hemoptysis. Denies dysuria, hematuria. Physical Examination: Lungs: Clear to auscultation bilaterally. Heart: S1, S2. Abdomen: Soft, benign. Extremities: No edema. Laboratory Data: Hemoglobin 9.9, WBC 4.7, platelet count 128,000. Sodium 135, potassium 3.8, chloride 115, CO2 23, BUN 18, creatinine 1.03, glucose 108, magnesium 2.0, phosphorus 2.7, calcium 8.7. Hemoglobin A1c 8.7. Impression And Plan: 1. Severe acute kidney injury due to prerenal azotemia, nonoliguric acute tubular necrosis. Patient responded to start current treatment. Continue blood pressure medication. Avoid excessive diuretic treatment and avoid nephrotoxic medication. 2. Hypothermia, rehydration. Patient responded to hydration. Renal function stabilized. 3. Diabetes mellitus with renal manifestation. Avoid metformin. Patient was found to have elevated hemoglobin A1c. 4. Hypokalemia. Potassium level was 3.1 on previous occasion. During this admission, potassium level was within normal limits and there was no evidence of metabolic acidosis. Patient will follow up with Nephrology outpatient. I spent total 36 min including 25 min to coordinate care plan. PRETTY/KEVIN Voice ID: [id number] Report ID: [id number] TAMMY
== END 2019-08-23 16:54 | disposition home health service (06) | DRG 640 ==
LOC: ER 18:12 → ERHOLD 22:41 → 4TH 08-22 02:31 → 2ND 08-22 21:32
PROVIDERS: ADMIT Hospitalist; ATTEND Family Medicine
DX: E86.0 Dehydration (principal); N17.0 Acute kidney failure with tubular necrosis; T68.XXXA Hypothermia, initial encounter; Z20.828 Contact with and (suspected) exposure to other viral communicable diseases; Z88.5 Allergy status to narcotic agent; Z79.01 Long term (current) use of anticoagulants; Z79.84 Long term (current) use of oral hypoglycemic drugs; Z79.899 Other long term (current) drug therapy; E11.40 Type 2 diabetes mellitus with diabetic neuropathy, unspecified; I25.10 Atherosclerotic heart disease of native coronary artery without angina pectoris; E78.5 Hyperlipidemia, unspecified; E11.51 Type 2 diabetes mellitus with diabetic peripheral angiopathy without gangrene; Z89.412 Acquired absence of left great toe; Z95.5 Presence of coronary angioplasty implant and graft; Z90.49 Acquired absence of other specified parts of digestive tract; Z90.710 Acquired absence of both cervix and uterus; E11.621 Type 2 diabetes mellitus with foot ulcer; L97.519 Non-pressure chronic ulcer of other part of right foot with unspecified severity; Z86.73 Personal history of transient ischemic attack (TIA), and cerebral infarction without residual deficits; Z85.038 Personal history of other malignant neoplasm of large intestine; H54.8 Legal blindness, as defined in USA; N18.9 Chronic kidney disease, unspecified; I12.9 Hypertensive chronic kidney disease with stage 1 through stage 4 chronic kidney disease, or unspecified chronic kidney disease; E11.22 Type 2 diabetes mellitus with diabetic chronic kidney disease; E87.6 Hypokalemia; F01.50 Vascular dementia, unspecified severity, without behavioral disturbance, psychotic disturbance, mood disturbance, and anxiety; I48.91 Unspecified atrial fibrillation; K21.9 Gastro-esophageal reflux disease without esophagitis; G89.29 Other chronic pain
CPT/HCPCS: 36415; 70490; 71045; 80048; 80053; 81003; 81015; 82550; 82947; 83036; 83605; 83735; 84100; 84145; 84439; 84443; 84484; 85025; 86308; 87040; 87070; 87081; 87086; 87088; 87804; 93005; 96361; 96365; 99285; J7030; U0002

== ENCOUNTER 2019-08-25 19:34 | Emergency (ER) | payer OTHER ==
--- OUTSIDE RECORDS SUMMARY | 2019-08-25 19:37 | XMS REPORT | Clinical Summary ---
:1945 Author Organization [facility] Address [address] [place] [address] Care Team Providers Name Role Phone Pcp, [...] pain Bird Mota MD 02/17/2019 Travel after 08/24/2018 Social History Tobacco Use Types Packs/Day Years [...] Taken Blood Pressure 149/62 02/19/2019 7:34 AM SOCIAL WORK PROFESSOR Pulse 80 02/19/2019 7:34 AM SOCIAL WORK PROFESSOR Temperature 36.5 C (97.7 F) 02/19/2019 7:34 AM SOCIAL WORK PROFESSOR Respiratory Rate 18 02/19/2019 7:34 AM SOCIAL WORK PROFESSOR Oxygen Saturation 99% 02/19/2019 7:34 AM SOCIAL WORK PROFESSOR Inhaled Oxygen Concentration - - Weight 72.1 kg (159 lb) 02/17/2019 5:11 PM SOCIAL WORK PROFESSOR Height 157.5 cm (5' 2") 02/17/2019 5:11 PM SOCIAL WORK PROFESSOR Body Mass Index 29.08 02/17/2019 5:11 PM SOCIAL WORK PROFESSOR Plan of Treatment Not on file Procedures Procedure Name Priority Date/Time Associated Comments Diagnosis RHYTHM STRIP - SCAN 02/23/2019 8:51 AM SOCIAL WORK PROFESSOR POCT-GLUCOSE METER Routine 02/19/2019 7:25 Resul ts for this AM SOCIAL WORK PROFESSOR procedure are i n the results section. XR CHEST 1 VIEW STAT 02/19/2019 12:06 Results for this PORTABLE/BEDSIDE AM SOCIAL WORK PROFESSOR procedure a re in the results section. POCT-GLUCOSE METER Routine 02/18/2019 11:30 Resul ts for this PM SOCIAL WORK PROFESSOR procedure are i n the results section. POCT-GLUCOSE METER Routine 02/18/2019 8:42 Resul ts for this AM SOCIAL WORK PROFESSOR procedure are i n the results section. CBC W/PLT COUNT & STAT 02/18/2019 4:18 Result s for this AUTO DIFFERENTIAL AM SOCIAL WORK PROFESSOR procedure are in the results section. CBC W/PLT COUNT & STAT 02/18/2019 4:18 Result s for this AUTO DIFFERENTIAL AM SOCIAL WORK PROFESSOR procedure are in the results section. LIPID PANEL STAT 02/18/2019 4:18 Results for this AM SOCIAL WORK PROFESSOR procedure are i n the results section. HEMOGLOBIN A1C STAT 02/18/2019 4:18 Results f or this AM SOCIAL WORK PROFESSOR procedure are i n the results section. HEPATIC FUNCTION STAT 02/18/2019 4:18 Results for this PANEL AM SOCIAL WORK PROFESSOR procedure are i n the results section. BASIC METABOLIC PANEL STAT 02/18/2019 4:18 Re sults for this (7) AM SOCIAL WORK PROFESSOR procedure are i n the results section. POCT-GLUCOSE METER Routine 02/17/2019 10:44 Resul ts for this PM SOCIAL WORK PROFESSOR procedure are i n the results section. CT ABDOMEN/PELVIS STAT 02/17/2019 6:47 Result s for this WITH IV CONTRAST PM SOCIAL WORK PROFESSOR procedure a re in the results section. CBC W/PLT COUNT & STAT 02/17/2019 5:52 Result s for this AUTO DIFFERENTIAL PM SOCIAL WORK PROFESSOR procedure are in the results section. LIPASE STAT 02/17/2019 5:52 Results for this PM SOCIAL WORK PROFESSOR procedure are i n the results section. HEPATIC FUNCTION STAT 02/17/2019 5:52 Results for this PANEL PM SOCIAL WORK PROFESSOR procedure are i n the results section. BASIC METABOLIC PANEL STAT 02/17/2019 5:52 Re sults for this (7) PM SOCIAL WORK PROFESSOR procedure are i n the results section. CBC W/PLT COUNT & STAT 02/17/2019 5:52 Result s for this AUTO DIFFERENTIAL PM SOCIAL WORK PROFESSOR procedure are in the results section. PROTHROMBIN TIME/INR STAT 02/17/2019 5:52 Res ults for this PM SOCIAL WORK PROFESSOR procedure are i n the results section. WET PREP STAT 02/17/2019 5:45 Results for this PM SOCIAL WORK PROFESSOR procedure are i n the results section. CRITICAL CARE Routine 02/17/2019 4:41 Results fo r this PM SOCIAL WORK PROFESSOR procedure are i n the results section. after 08/24/2018 Results RHYTHM STRIP - SCAN (02/23/2019 8:51 AM SOCIAL WORK PROFESSOR) Narrative Performed At This result has an attachment that is no t available. POC-Glucose meter (02/19/2019 7:25 AM SOCIAL WORK PROFESSOR)Only the most recent of4 results within the time period is included. POC-Glucose Meter 81Comment: : TESTED AT 70 - 110 mg/dL [facility] [address], [facility] [address]: Billing Supervisor/Motor Coach Supervisor ID = [id number] for Shahana Hewitt Specimen Blood Performing Organization Address City/State/Zipcode Phone Number [facility] [address] [place] [address] CENTER XR chest 1 view portable / bedside (02/19/2019 12:06 AM SOCIAL WORK PROFESSOR) Specimen Narrative Performed At FINAL REPORT [facility] RAD, CHEST, 1 VIEW, NON [...] External Ris In - 02/19/2019 12:14 AM SOCIAL WORK PROFESSOR FINAL REPORT RAD, CHEST, 1 VIEW, NON [...] 0:12:27 Performing Organization Address City/State/Zipcode Phone Number [facility] CBC with platelet count + automated diff (02/18/2019 4:18 AM SOCIAL WORK PROFESSOR)Only the most recent of2 resultswithin the time period is included. WBC 4.6 4.0 - 10.0 K/L [facility] RBC 3.34 (L) 4.00 - 5.00 [...] Blood Performing Organization Address City/State/Zipcode Phone Number [facility] [address] [place] [address] Hemoglobin A1c (02/18/2019 4:18 AM SOCIAL WORK PROFESSOR) Hemoglobin A1C 8.6 (H) 4.3 - 6.1 % [facility] Specimen Blood Performing Organization Address City/State/Zipcode Phone Number [facility] [address] [place] [address] Hepatic function panel (02/18/2019 4:18 AM SOCIAL WORK PROFESSOR)Only the most recent of2 results within the [...] City/State/Zipcode Phone Number [facility] [address] [place], [place] [address] Lipid panel (02/18/2019 4:18 AM SOCIAL WORK PROFESSOR) Triglycerides 46 mg/dL [facility] Cholesterol 90 mg/dL [facility] HDL 44 mg/dL [facility] LDL Calculated 37 mg/dL [facility] Specimen Blood Narrative Performed At Triglyceride Reference Range: [facility] Low Risk <150 [id number] High Risk 200-499 Very High Risk>=500 Cholesterol Reference Range: Low Risk <200 Lkkxmuxmbf015-021 High Risk>240 HDL Cholesterol Reference Range: Low Risk >=60 High Risk <40 LDL Cholesterol Reference Range: Optimal<100 Near Ylwpjsm014-962 Phswcgezrv406-212 Mizf894-171 Very High >=190 Performing Organization Address City/State/Zipcode Phone Number [facility] [address] [place], [place] [address] Basic metabolic panel (02/18/2019 4:18 AM SOCIAL WORK PROFESSOR)Only the most recent of2 results within the [...] GFR IS NOT mL/min/1.73 s q m [facility] ACCURATE CREATININE CLEARANCE IN PREDICTING GLOMERULAR FILTRATION RATE. ESTIMATED GFR IS NOT APPLICABLE FOR DIALYSIS PATIENTS. Specimen Blood Performing Organization Address City/State/Zipcode Phone Number [facility] [address] [place] [address] [address] [address] abdomen pelvis with IV contrast (02/17/2019 6:47 PM SOCIAL WORK PROFESSOR) Specimen Narrative Performed At FINAL REPORT [employer] RIS ABDOMINAL AND PELVIS CT DATED 02/17/2019 [...] MD Report Verified Date/Time:02/17/2019 18:58:34 Reading Location: [facility] B1 C[address]W [facility] Procedure Note Interface, External Ris In - 02/17/2019 7:00 PM SOCIAL WORK PROFESSOR FINAL REPORT ABDOMINAL AND PELVIS CT DATED [...] Verified Date/Time: 02/17/2019 1 8:58:34 Reading Location: [address] Performing Organization Address City/State/Zipcode Phone Number GE RIS PT/INR (02/17/2019 5:52 PM SOCIAL WORK PROFESSOR) Protime 14.2 (H) 9.3 - 12.0 sec [facility] INR 1.3 <=5.9 [facility] Specimen Blood Narrative Performed At RECOMMENDED COUMADIN/WARFARIN INR THERAP Y RANGES [facility] STANDARD DOSE: 2.0 - 3.0 Includes: PROPHYLAXIS for venous thrombosis, systemic embolization; TREATMENT for venou s thrombosis and/or pulmonary embolus. HIGH RISK: Target INR is 2.5-3.5 for patients with mec hanical heart valves. Final Information (Auto Output) Final Information (Auto Output) Performing Organization Address City/State/Zipcode Phone Number [facility] [address] [place], [place] [address] Lipase (02/17/2019 5:52 PM SOCIAL WORK PROFESSOR) Lipase 6 6 - 51 U/L [facility] Specimen Blood Performing Organization Address City/[facility]/Zipcode Phone Number [facility] [address] [place], [place] [address] Wet prep, genital (02/17/2019 5:45 PM SOCIAL WORK PROFESSOR) WBC - wet prep Moderate white blood cells [facility] seen Clue cells - wet prep No clue cells seen [facility] Yeast - wet prep No budding yeast seen [facility] Trichomonas - wet prep No Trichomonas seen [facility] Bacteria - wet prep Few bacteria seen [facility] Specimen Genital Performing Organization Address City/[facility]/Zipcode Phone Number [facility] [address] [place], [place] [address] CRITICAL CARE (02/17/2019 4:41 PM SOCIAL WORK PROFESSOR) Narrative [place] [address]:53 AM Critical Care Performed by: Anabela Kimbrough MD Authorized by: Bird Garcia MD Total critical care time: 45 minutes Critical care was necessary to treat or prevent imminent or life-threatening deterioration of the fo llowing conditions: sepsis. Critical care was time spent personally by [facility] activities: blood draw for specimens, discussions wi [...] another provider o f my specialty. after 08/24/2018 Insurance Payer Benefit Plan / Group Subscriber ID Type Phone A ddress MEDICARE MEDICARE A B xxxxxxxxxxx Medicare [place] MED[place] MED[place]ID [place] xxxxxxxxx Advance Directives For more information, please contact:[address] Benjamin[place], [place] [phone] Code Status Date Activated Date Inactivated Comments Full Code 02/17/2019 10:31 PM 02/19/2019 1:18 PM This code status was determined by: Patient
--- OUTSIDE RECORDS SUMMARY | 2019-08-25 19:37 | XMS REPORT | Clinical Summary ---
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
--- OUTSIDE RECORDS SUMMARY | 2019-08-25 19:38 | XMS REPORT ---
:1945 Author Organization [facility] t Address [address] [place] [address] Care Team Providers Name Role Phone Asked, [...] Date Quantity Comments Source Sex Assigned At [facility] ethodist Alcohol intake 2016-08-02 2016-08-02 Current [facility] thodist 00:00:00 00:00:00 non-drinker of alcohol (finding) Smoking Status Start Date Stop Date Source Never smoker [place] [facility] t Medications This patient has no known medications. Procedures This patient has no known procedures. Plan of Care Planned Activity Planned Date Details Comments Source Future Scheduled 2019-10-30 INFLUENZA VACCINE Navi merrill [facility] Test 00:00:00 [code = INFLUENZA VACCINE] Future Scheduled 2010 65+ PNEUMOCOCCAL Jian [facility] Test 00:00:00 VACCINE (1 of 2 - PCV13) [code = 65+ PNEUMOCOCCAL VACCINE (1 of 2 - PCV13)] Future Scheduled 1995-12-31 BREAST CANCER Villar [facility]odist Test 00:00:00 SCREENING [code = BREAST CANCER SCREENING] Future Scheduled 1995-12-31 COLONOSCOPY SCREENING Ho dm [facility] Test 00:00:00 [code = COLONOSCOPY SCREENING] Future Scheduled 1995-12-31 SHINGLES VACCINES (#1) H jaiden [facility] Test 00:00:00 [code = SHINGLES VACCINES (#1)] Encounters Start End Encounter Admission Attending Care Care Encounter Source Date/Time Date/Time Type Type Clinicians Facility Department ID 2019-08-19 2019-08-19 Refill [facility] [id number] 00:00:00 00:00:00 Kevon Tineo 350.1.13.10 Points 4.2.7.2.686 Professio [phone] [address] 2019-08-18 2019-08-18 Telephone [facility] [id number] 00:00:00 00:00:00 Darlene Tineo 350.1.13.10 Points 4.2.7.2.686 Professio [phone] [address] 2019-07-30 2019-07-30 Telephone [facility] [id number] 00:00:00 00:00:00 Darlene Tineo 350.1.13.10 Points 4.2.7.2.686 Professio [phone] [address] Results Test Description Test Time Test Comments Results Result Comments Source POCT-GLUCOSE METER 2019-02-19 07:36:00 Test Item Value Reference Range Interpretation Comme nts POC-GLUCOSE METER (ZEINAB) 81 mg/dL 70-110 : TESTED AT [address] (test code = 1538) [facility] [address]: Mold Polisher/Techni yosvany ID = [id number] for Shahana Hewitt RAD, CHEST, 1 VIEW, NON [id number] 00:12:00Reason for exam:->to verify tip of picc [...] Campoverdeeport Verified Date/Time: 02/19/2019 00:12:27 12:12 AMPOCT-GLUCOSE [id number] 23:41:00 Test Item Value Reference Range Interpretation Comments POC-GLUCOSE METER 96 mg/dL 70-110 : TESTED A T [facility] [address] (BEAKER) (test code = [address]) [place] [id number]: Mold Polisher/Techni yosvany ID = [id number] for Doreen Randhawa POCT-GLUCOSE [id number] 08:55:00 Test Item Value Reference Range Interpretation Comments POC-GLUCOSE METER 76 mg/dL 70-110 : TESTED A T [facility] [address] (BEAKER) (test code = [address]) [place] [address]: Mold Polisher/Techni yosvany ID = [id number] for Dyan Mukherjee BASIC METABOLIC [id number] 05:09:00 Test Item Value Reference Range Interpretation [...] NOT APPLICABLE FOR DIALYSIS PATIEN TS. LIPID [id number] 05:08:00 Test Item Value Reference Range Interpretation [...] 130-159 High 160-189 Very High >=190HEPATIC FUNCTION [id number] 05:08:00 Test Item Value Reference Range Interpretation [...] code = 5 U/L 5-50 347) HEMOGLOBIN [id number] 05:02:00 Test Item Value Reference Range Interpretation Comments HEMOGLOBIN A1C (BEAKER) (test code = 8.6 % 4.3-6.1 H 368) CBC W/PLT COUNT & AUTO [id number] 04:47:00 Test Item Value Reference Range Interpretation [...] PERCENT (BEAKER) (test code = 2801) POCT-GLUCOSE [id number] 22:56:00 Test Item Value Reference Range Interpretation Comments POC-GLUCOSE METER 95 mg/dL 70-110 : TESTED A T [facility] [address] (BEAKER) (test code = [address]) [facility] [address]: Mold Polisher/Techni yosvany ID = [id number] for Nehal Milner CT, [id number] 18:58:00Reason for exam:->VAGINAL DISCHARGEWhat is the patient's [...] Schultz MDReport Verified Date/Time: 18:58:34 Reading Location: [facility] [address] Consult Reading Room LIPASE 2019-02-17 18:20:00 Test Item Value Reference Range Interpretation Comments LIPASE (BEAKER) (test code = 749) 6 U/L 6-51 BASIC METABOLIC [id number] 18:20:00 Test Item Value Reference Range Interpretation [...] TO CALCULA TE ESTIMATED GFR. HEPATIC FUNCTION [id number] 18:19:00 Test Item Value Reference Range Interpretation [...] code = 5 U/L 5-50 347) PROTHROMBIN [id number] 18:11:00 Test Item Value Reference Range Interpretation [...] Information (Auto Output)CBC W/PLT COUNT & AUTO [id number] 18:01:00 Test Item Value Reference Range Interpretation [...] PERCENT (BEAKER) (test code = 2801) WET [id number] 17:57:00 Test Item Value Reference Range Interpretation [...]
[2019-08-25] MEDS ORDERED: LORAZEPAM 1 MG TABLET ONE (21:22)
[2019-08-25] MEDS ORDERED: NA CHLORIDE 0.9% 1,000 ML ONE (22:30)
[2019-08-25] MEDS ORDERED: ONDANSETRON 4 MG/2 ML VIAL ONE (22:30)
[2019-08-25 22:31] LABS: Basophils % 1.3 % (0-1.3); Hematocrit 27.2 % (36.0-45.0); Lymphocytes % 18.1 % (15.3-44.8); RBC Red Blood Cell Count 3.27 M/uL (3.86-4.86)
[2019-08-25 22:51] LABS: ALT/SGPT 29 U/L (12-78); AST/SGOT 21 U/L (15-37); Albumin 3.2 g/dL (3.4-5.0); Alkaline Phosphatase 92 U/L (45-117); BUN Blood Urea Nitrogen 14 mg/dL (7-18); Bicarbonate 25 mmol/L (21-32); Bilirubin Direct 0.2 mg/dL (0-0.2); Bilirubin Total 0.4 mg/dL (0.2-1.0); Glucose Level 318 mg/dL (74-106); Lipase 79 U/L (73-393); Potassium 3.2 mmol/L (3.5-5.1); Protein, Total 6.7 g/dL (6.4-8.2); Sodium Level 143 mmol/L (136-145); Troponin (Emerg Dept Use Only) < 0.02 ng/mL (0.0-0.045)
[2019-08-25] MEDS ORDERED: POTASSIUM 25 MEQ EFFERV TAB ONE (23:58)
[2019-08-25] MEDS ORDERED: CEFTRIAXONE/SWI 1gm 1 GM/10 ML SYR ONE (23:58)
[2019-08-26 01:09] LABS: Urine Bacteria <20 /HPF (<20); Urine Culture Reflex Order REFLEXED
[2019-08-26 01:11] LABS: Urine Blood 1+ (NEG); Urine Glucose 2+ (NEG); Urine Protein NEGATIVE (NEG); Urine Specific Gravity 1.015 (1.005-1.030)
[2019-08-26 02:40] VITALS: O2SAT 100
[2019-08-26 02:41] VITALS: BP 159/74; TEMP 98.6
--- NOTE | 2019-08-26 08:23 | RAD REPORT ---
EXAM DESCRIPTION: Jamal Single View08/25/2019 9:44 pm CLINICAL HISTORY: Congestion COMPARISON: August 21, 2019 FINDINGS: Mild right upper lobe opacities Main lungs appear clear acute infiltrate. Heart is normal size IMPRESSION: Mild right upper lobe opacities may indicate mild pneumonia or pneumonitis
--- NOTE | 2019-08-26 18:54 | RAD REPORT ---
EXAM DESCRIPTION: CT - Abdomen Pelvis W Contrast - 08/26/2019 6:55 am CLINICAL HISTORY: Abdominal pain. COMPARISON: 01/24/2019 TECHNIQUE: CT scan of the abdomen and pelvis was performed with IV contrast. This exam was performed according to our departmental dose-optimization program, which includes automated exposure control, adjustment of the mA and/or kV according to patient size and/or use of iterative reconstruction techn ique. FINDINGS: The study is limited by motion artifact. There is atelectasis at the lung bases, but without pleural or pericardial effusions. Coronary athero sclerotic calcifications are seen. No hiatal hernia. There has been a prior cholecystectomy. The liver, spleen, pancreas, adrenal glands, and kidneys are unremarkable. No hydronephrosis or urinary stones are seen. There is a small amount of air in the non dependent urinary bladder, likely secondary to intervention. There has been a prior hysterectomy. There is a moderate amount of stool throughout the colon. No small bowel obstruction or inflammation. Post surgical changes of the right:. There has been a prior appendectomy. No intraperitoneal free fl uid or free air is seen. The aorta is normal caliber and contains atherosclerotic calcifications. There are mild degenerative changes of the spine. No abnormal body wall hernia is evident. IMPRESSION: No acute abdominal or pelvic findings. Electronically signed by: Sabas Cheatham MD 08/25/2019 10:02 PM CDT Due to temporary technical issues with the PACS/Fluency reporting system, reports are being signed by the in house radiologist without review asa courtesy to ensure prompt reporting. The interpreting ra diologist is fully responsible for the content of the report.
--- NOTE | 2019-08-26 18:56 | RAD REPORT ---
EXAM DESCRIPTION: CT - Head Brain Wo Cont - 08/26/2019 6:54 am CLINICAL HISTORY: Severe headache. COMPARISON: 10/01/2018 TECHNIQUE: CT scan of the brain was performed without IV contrast. This exam was performed accordi ng to our departmental dose-optimization program, which includes automated exposure control, adjustme nt of the mA and/or kV according to patient size and/or use of iterative reconstruction technique. FINDINGS: There are scattered areas of hypoattenuation within the periventricular white matter, whic h likely represent chronic microvascular ischemia. No evidence of acute infarction, intracranial hemo rrhage, extra-axial fluid collection, or midline shift. No air-fluid levels are seen in the paranasal sinuses to suggest acute sinusitis. No depressed skull fracture. IMPRESSION: 1. No acute intracranial findings. 2. Senescent changes with chronic microvascular ischemia. Electronically signed by: Sabas Cheatham MD 08/25/2019 9:59 PM CDT Due to temporary technical issues with the PACS/Fluency reporting system, reports are being signed by the in house radiologist without review asa courtesy to ensure prompt reporting. The interpreting ra diologist is fully responsible for the content of the report.
--- NOTE | 2019-08-28 13:04 | EKG ---
Test Date: 2019-08-25 Test Time: 22:15:20 Automotive Sales Professional: TO MEASUREMENT RESULTS: Intervals: Rate: 98 DC: 168 QRSD: 140 QT: 398 QTc: 508 [place]: P: 56 DC: 168 QRS: -65 T: 56 INTERPRETIVE STATEMENTS: Normal sinus rhythm Right bundle branch block Left anterior fascicular block Bifascicular block Abnormal ECG Electronically Signed On 08-28-19 13:03:41 CDT by Alexis Sam
--- NOTE | 2019-08-30 15:18 | ER ---
Nurse's Notes [facility] Name: Leydi Guerrier Age: 73 yrs Sex: Female : 1945 Arrival Date: 08/25/2019 Time: 19:38 Bed 13 Private MD: Diagnosis: Cystitis, unspecified without hematuria Presentation: 08/24 19:44 Chief complaint: EMS states: "She was just here over the weekend and is kind of vc complaining about the same thing, she has symptoms of dehydration, complaining of a severe headache, abdominal pain, nauseousness, and right sided hip pain. Coronavirus screen: Proceed with normal triage. Patient denies a cough. Patient denies shortness of breath or difficulty breathing. Patient denies measured and/or subjective temperature greater than 100.4F prior to today's visit. Patient denies travel on a cruise ship or to a country the [facility] currently lists as an affected area. Patient denies contact with known and/or suspected case of COVID-19. Ebola Screen: No symptoms or risks identified at this time. Initial Sepsis Screen: Does the patient meet any 2 criteria? Altered Mental Status. No. Patient's initial sepsis screen is negative. Does the patient have a suspected source of infection? No. Patient's initial sepsis screen is negative. Risk Assessment: Do you want to hurt yourself or someone else? Patient reports no desire to harm self or others. Onset of symptoms is unknown. 19:44 Method Of Arrival: EMS: [facility] 19:44 Acuity: ADY 3 vc Triage Assessment: 19:45 Headache History: The patient has had previous headaches and this one is different than previous episodes. General: Appears in no apparent distress. uncomfortable, obese, Behavior is anxious, uncooperative. Pain: Complains of pain in abdomen and forehead Pain currently is 10 out of 10 on a pain scale. Pain began gradually, Also complains of nausea. Neuro: Level of Consciousness is awake, confused, Oriented to person. 19:45 Cardiovascular: Capillary refill < 3 seconds Patient's skin is warm and dry. vc Respiratory: Airway is patent Respiratory effort is even, unlabored, Respiratory pattern is regular, symmetrical. GI: Reports lower abdominal pain, upper abdominal pain, nausea. : Urine is cloudy. Derm: Wound noted perianal. Historical: - Allergies: 20:00 Morphine; vc - Home Meds: 20:00 Hilda Oral [Active]; atorvastatin Oral [Active]; gabapentin Oral [Active]; Glipizide vc Oral [Active]; Iron CR Oral [Active]; Januvia Oral [Active]; lisinopril 10 mg Oral tab 1 tab once daily [Active]; Protonix Oral [Active]; - PMHx: 20:00 Atrial Fib; legally blind; Hypertension; High Cholesterol; Glaucoma; Diabetes - IDDM; vc CVA; COLON CA; CAD; - Immunization history:: Adult Immunizations unknown. - Social history:: Smoking status: Patient denies any tobacco usage or history of. Patient/guardian denies using alcohol, street drugs, The patient lives with family. - Family history:: not pertinent. Screenin:45 Abuse screen: Denies threats or abuse. Nutritional screening: No deficits noted. vc Tuberculosis screening: No symptoms or risk factors identified. Fall Risk Secondary diagnosis (15 points) impaired mobility, IV access (20 points). Ambulatory Aid- None/Bed Rest/Nurse Assist (0 pts). Gait- Impaired (20 pts.). Mental Status- Overestimates/Forgets Limitations (15 pts.). Total Esparza Fall Scale indicates High Risk Score (45 or more points). Fall prevention measures have been instituted. Side Rails Up X 2 Frequent Obs/Assessments Occuring. Assessment: 19:45 General: Appears in no apparent distress. uncomfortable, Behavior is anxious. Pain: vc Complains of pain in abdomen and forehead Pain currently is 10 out of 10 on a pain scale. Neuro: Level of Consciousness is awake, confused, lethargic, Oriented to person. Cardiovascular: Capillary refill < 3 seconds Patient's skin is warm and dry. GI: No signs and/or symptoms were reported involving the gastrointestinal system. : No signs and/or symptoms were reported regarding the genitourinary system. Urine is clear. 20:45 Reassessment: Patient appears in no apparent distress at this time. Patient and/or vc family updated on plan of care and expected duration. Pain level reassessed. Patient is alert, oriented x 3, equal unlabored respirations, skin warm/dry/pink. 21:45 Reassessment: Patient appears in no apparent distress at this time. Patient and/or vc family updated on plan of care and expected duration. Pain level reassessed. 22:45 Reassessment: Patient refuses IV and EKG. Reassessment: Patient agrees to allow us to vc run ekg and do blood work. 23:00 Reassessment: Patient appears in no apparent distress at this time. Patient and/or vc family updated on plan of care and expected duration. Pain level reassessed. Patient is alert, oriented x 3, equal unlabored respirations, skin warm/dry/pink. 23:27 Reassessment: Patient appears in no apparent distress at this time. Placed bed morgan vc under patient. Reassessment: placed bed morgan under patient. 08/25 00:00 Reassessment: Patient appears in no apparent distress at this time. Patient and/or vc family updated on plan of care and expected duration. Pain level reassessed. 00:05 Reassessment: Called son to let him know patient has been discharged. Son stated he vc would find someone to fiber picker patient. 00:55 Reassessment: wafer fabrication technician contacted son, son states he is unable to fiber picker patient until morning. 01:00 Reassessment: Patient appears in no apparent distress at this time. Patient and/or vc family updated on plan of care and expected duration. Pain level reassessed. 01:34 Reassessment: Assisted patient to bsc at this time;. lp1 Vital Signs: 08/24 19:44 BP 121 / 102; Pulse 93; Resp 14; Temp 97.1; Pulse Ox 100% on R/A; Weight 79.38 kg; vc Height 5 ft. 2 in. (157.48 cm); Pain 10/10; 20:16 BP 148 / 96; Pulse 94; Resp 12; Pulse Ox 100% ; vc 22:00 BP 170 / 72; Pulse 96; Resp 14; Pulse Ox 99% on R/A; vc 08/25 00:00 BP 162 / 72; Pulse 95; Resp 12; Pulse Ox 100% on R/A; vc 01:34 BP 159 / 74; Pulse 96; Resp 18; Temp 98.6(O); Pulse Ox 100% on R/A; lp1 08/24 19:44 Body Mass Index 32.01 (79.38 kg, 157.48 cm) vc [place] Coma Score: 08/24 21:04 Eye Response: spontaneous(4). Verbal Response: oriented(5). Motor Response: obeys ma2 commands(6). Total: 15. ED Course: 19:38 Patient arrived in ED. cf2 19:44 Haleigh Squires, AIDEN is Primary Nurse. vc 19:45 Arm band placed on. vc 19:45 Patient has correct armband on for positive identification. Bed in low position. Call vc light in reach. Side rails up X2. garage worker on. Pulse ox on. NIBP on. 19:54 Triage completed. vc 20:46 Geneva Bright MD is Attending Physician. ma2 21:40 CT Head Brain wo Cont In Process Unspecified. EDMS 21:44 Chest Single View XRAY In Process Unspecified. EDMS 21:53 CT Abd/Pelvis - IV Contrast Only In Process Unspecified. EDMS 08/25 01:54 No provider procedures requiring assistance completed. vc Administered Medications: 08/24 22:49 Drug: Zofran (Ondansetron) 4 mg Route: IVP; Site: right antecubital; vc 08/25 00:04 Follow up: Response: No adverse reaction vc 08/24 22:49 Drug: NS 0.9% 1000 ml Route: IV; Rate: 1 bolus; Site: right antecubital; vc 08/25 00:00 Follow up: IV Status: Completed infusion; IV Intake: 1000ml vc 00:03 Drug: Rocephin 1 grams Route: IV; Rate: calculated rate; Site: right antecubital; vc 01:48 Follow up: IV Status: Completed infusion; IV Intake: 20ml vc 00:03 Drug: Klor-Con Effervescent Tablet 25 mEq {Note: Patient drank half and refused to vc drink the rest..} Route: PO; 01:48 Follow up: Response: No adverse reaction vc 00:04 Not Given (Physician Discretion): NS 0.9% 1000 ml IV at 1000 ml once vc Intake: 00:00 IV: 1000ml; Total: 1000ml. vc 01:48 IV: 20ml; Total: 1020ml. vc Outcome: 08/24 23:33 Discharge ordered by . ma2 08/25 02:30 Patient left the ED. vc Addendum: 08/29/2019 07:18 Addendum: Culture Results: Positive urine culture. No further action required. Bacteria e b sensitive to prescribed antibiotic. Signatures: Dispatcher [employer] Stephanie Santos, RN RN lp1 Geneva Bright MD MD ma2 Darlene Wilkes [place] 2 Haleigh Squires, AIDEN RN vc
--- NOTE | 2019-08-30 15:18 | EDPHYS ---
Physician Documentation [facility] Name: Leydi Guerrier Age: 73 yrs Sex: Female : 1945 Arrival Date: 08/25/2019 Time: 19:38 Bed 13 Private MD: ED Physician Geneva Bright HPI: 08/24 21:04 This 73 yrs old Female presents to ER via EMS with complaints of Headache, ma2 Nausea. 21:04 The patient complains of pain to the forehead. Onset: The symptoms/episode ma2 began/occurred gradually, 3 day(s) ago. Associated signs and symptoms: Pertinent negatives: dizziness, nausea, Photophobia rash. Headache History: The patient has had previous headaches and this one is similar to previous episodes. The patient has experienced similar episodes in the past. Historical: - Allergies: 20:00 Morphine; vc - Home Meds: 20:00 Hilda Oral [Active]; atorvastatin Oral [Active]; gabapentin Oral [Active]; Glipizide vc Oral [Active]; Iron CR Oral [Active]; Januvia Oral [Active]; lisinopril 10 mg Oral tab 1 tab once daily [Active]; Protonix Oral [Active]; - PMHx: 20:00 Atrial Fib; legally blind; Hypertension; High Cholesterol; Glaucoma; Diabetes - IDDM; vc CVA; COLON CA; CAD; - Immunization history:: Adult Immunizations unknown. - Social history:: Smoking status: Patient denies any tobacco usage or history of. Patient/guardian denies using alcohol, street drugs, The patient lives with family. - Family history:: not pertinent. ROS: 21:04 Constitutional: Negative for fever, chills, and weight loss. ma2 21:04 All other systems are negative. Exam: 21:04 Constitutional: This is a well developed, well nourished patient who is awake, alert, ma2 and in no acute distress. Head/Face: Normocephalic, atraumatic. ENT: Nares patent. No nasal discharge, no septal abnormalities noted. Tympanic membranes are normal and external auditory canals are clear. Oropharynx with no redness, swelling, or masses, exudates, or evidence of obstruction, uvula midline. Mucous membranes moist. Neck: Trachea midline, no thyromegaly or masses palpated, and no cervical lymphadenopathy. Supple, full range of motion without nuchal rigidity, or vertebral point tenderness. No Meningismus. Chest/axilla: Normal chest wall appearance and motion. Nontender with no deformity. No lesions are appreciated. Cardiovascular: Regular rate and rhythm with a normal S1 and S2. No gallops, murmurs, or rubs. Normal PMI, no JVD. No pulse deficits. Respiratory: Lungs have equal breath sounds bilaterally, clear to auscultation and percussion. No rales, rhonchi or wheezes noted. No increased work of breathing, no retractions or nasal flaring. Abdomen/GI: Soft, non-tender, with normal bowel sounds. No distension or tympany. No guarding or rebound. No evidence of tenderness throughout. MS/ Extremity: Pulses equal, no cyanosis. Neurovascular intact. Full, normal range of motion. Neuro: Awake and alert, GCS 15, oriented to person, place, time, and situation. Cranial nerves II-XII grossly intact. Motor strength 5/5 in all extremities. Sensory grossly intact. Cerebellar exam normal. Normal gait. Vital Signs: 19:44 BP 121 / 102; Pulse 93; Resp 14; Temp 97.1; Pulse Ox 100% on R/A; Weight 79.38 kg; vc Height 5 ft. 2 in. (157.48 cm); Pain 10/10; 20:16 BP 148 / 96; Pulse 94; Resp 12; Pulse Ox 100% ; vc 22:00 BP 170 / 72; Pulse 96; Resp 14; Pulse Ox 99% on R/A; vc 08/25 00:00 BP 162 / 72; Pulse 95; Resp 12; Pulse Ox 100% on R/A; vc 01:34 BP 159 / 74; Pulse 96; Resp 18; Temp 98.6(O); Pulse Ox 100% on R/A; lp1 08/24 19:44 Body Mass Index 32.01 (79.38 kg, 157.48 cm) vc [place] Coma Score: 08/24 21:04 Eye Response: spontaneous(4). Verbal Response: oriented(5). Motor Response: obeys ma2 commands(6). Total: 15. MDM: 20:46 Patient medically screened. ma2 21:04 Differential diagnosis: otitis, sinusitis, uremia. Data reviewed: vital signs, nurses ma2 notes. 23:32 Counseling: I had a detailed discussion with the patient and/or guardian regarding: the [facility] historical points, exam findings, and any diagnostic results supporting the discharge/admit diagnosis, the presence of at least one elevated blood pressure reading (>120/80) during this emergency department visit, the need for outpatient follow up. Response to treatment: the patient's symptoms have markedly improved after treatment. 08/24 20:58 Order name: Blood Culture Adult (2) [facility] 08/24 20:58 Order name: BMP; Complete Time: 23:32 [facility] 08/24 20:58 Order name: CBC with Diff; Complete Time: 23:32 [facility] 08/24 20:58 Order name: Hepatic Function; Complete Time: 23:32 [facility] 08/24 20:58 Order name: Lipase; Complete Time: 23:32 [facility] 08/24 20:58 Order name: Troponin (emerg Dept Use Only); Complete Time: 23:32 [facility] 08/24 20:58 Order name: Chest Single View XRAY [facility] 08/24 21:05 Order name: CT Head Brain wo Cont [facility] 08/24 21:14 Order name: CT Abd/Pelvis - IV Contrast Only [facility] 08/24 21:46 Order name: CREATININE WHOLE BLOOD; Complete Time: 23:32 [facility] 08/24 22:47 Order name: Urine Dipstick--Ancillary (enter results) [facility] 08/24 23:48 Order name: Urine Microscopic Only [facility] 08/25 01:10 Order name: Urine Culture [facility] 08/24 20:58 Order name: EKG - Nurse/Tech; Complete Time: 22:50 [facility] 08/24 20:58 Order name: IV Saline Lock; Complete Time: 22:50 [facility] 08/24 20:58 Order name: Labs collected and sent; Complete Time: 22:50 [facility] 08/24 20:58 Order name: NPO; Complete Time: 22:50 [facility] 08/24 20:58 Order name: Urine Dipstick-Ancillary (obtain specimen); Complete Time: 22:47 [facility] Administered Medications: 22:49 Drug: Zofran (Ondansetron) 4 mg Route: IVP; Site: right antecubital; 08/25 00:04 Follow up: Response: No adverse reaction vc 08/24 22:49 Drug: NS 0.9% 1000 ml Route: IV; Rate: 1 bolus; Site: right antecubital; vc 08/25 00:00 Follow up: IV Status: Completed infusion; IV Intake: 1000ml vc 00:03 Drug: Rocephin 1 grams Route: IV; Rate: calculated rate; Site: right antecubital; vc 01:48 Follow up: IV Status: Completed infusion; IV Intake: 20ml vc 00:03 Drug: Klor-Con Effervescent Tablet 25 mEq {Note: Patient drank half and refused to vc drink the rest..} Route: PO; 01:48 Follow up: Response: No adverse reaction vc 00:04 Not Given (Physician Discretion): NS 0.9% 1000 ml IV at 1000 ml once vc Disposition: 08/25/19 23:33 Discharged to Home. Impression: Cystitis, unspecified without hematuria. - Condition is Stable. - Discharge Instructions: Urinary Tract Infection, Adult, [place]. - Prescriptions for Zofran 4 mg Oral Tablet - take 1 tablet by ORAL route every 12 hours As needed; 20 tablet. Bactrim DS 800- 160 mg Oral Tablet - take 1 tablet by ORAL route every 12 hours for 5 days; 20 tablet. Klor- Con 8 mEq Oral Tablet Sustained Release - take 1 tablet by ORAL route once daily; 20 tablet. - SBAR form, Medication Reconciliation Form, Thank You Letter, Antibiotic Education, Prescription Opioid Use form. - Follow up: Private Physician; When: Tomorrow; Reason: Continuance of care. Signatures: Dispatcher [employer] EDMS Geneva Bright MD MD ma2 Haleigh Squires RN RN vc Corrections: (The following items were deleted from the chart) 02:30 08/24 23:33 08/25/2019 23:33 Discharged to Home. Impression: Cystitis, unspecified vc without hematuria. Condition is Stable. Prescriptions for Zofran 4 mg Oral Tablet - take 1 tablet by ORAL route every 12 hours As needed; 20 tablet, Bactrim DS 800-160 mg Oral Tablet - take 1 tablet by ORAL route every 12 hours for 5 days; 20 tablet. and Forms are Medication Reconciliation Form, Thank You Letter, Antibiotic Education, Prescription Opioid Use. Follow up: Private Physician; When: Tomorrow; Reason: Continuance of care. ma2
== END 2019-08-26 02:30 | disposition home or self-care (01) ==
LOC: ER 19:34
DX: N30.90 Cystitis, unspecified without hematuria (principal); I10 Essential (primary) hypertension; E11.9 Type 2 diabetes mellitus without complications; Z85.038 Personal history of other malignant neoplasm of large intestine; Z86.73 Personal history of transient ischemic attack (TIA), and cerebral infarction without residual deficits; Z88.5 Allergy status to narcotic agent
CPT/HCPCS: 96365; 96361; 93005; 87040 ×2; 87088; 85025; 87086; 80048; 36415; 82565; 80076; 87077; 87186; 84484; 83690; 70450; 74177; 71045; 96375; 99284; 96366; Q9967; J0696; J7030; J2405; 81003; 81015

== ENCOUNTER 2020-01-02 22:01 | Emergency (ER) | payer OTHER ==
--- NOTE | 2020-01-03 01:19 | ER ---
Nurse's Notes [facility] Name: Leydi Guerrier Age: 74 yrs Sex: Female : 1945 Arrival Date: 01/02/2020 Time: 22:09 Bed 15 Private MD: Diagnosis: Acute upper respiratory infection, unspecified Presentation: 01/01 22:12 Ebola Screen: No symptoms or risks identified at this time. Initial Sepsis Screen: Does ea the patient meet any 2 criteria? No. Patient's initial sepsis screen is negative. Does the patient have a suspected source of infection? Yes: Productive cough/pneumonia. Risk Assessment: Do you want to hurt yourself or someone else? Patient reports no desire to harm self or others. Onset of symptoms. Onset of symptoms was January 02, 2020. 22:15 Chief complaint: Patient states: "the pt is reporting flu-like symptoms since last jd3 night .". Coronavirus screen: cough unrelated to allergies, fever, nausea, Client presents with at least one sign or symptom that may indicate coronavirus-19. Standard/surgical mask placed on the client. Provider contacted for isolation considerations. 22:15 Method Of Arrival: EMS: [facility] jd3 22:15 Acuity: ADY 3 jd3 Historical: - Allergies: 22:19 Morphine; jd3 - Home Meds: 22:19 Hilda Oral [Active]; gabapentin Oral [Active]; Glipizide Oral [Active]; Iron CR Oral jd3 [Active]; Lyrica Oral [Active]; lisinopril 10 mg Oral tab 1 tab once daily [Active]; Januvia Oral [Active]; oxybutynin chloride 10 mg Oral tr24 1 tab once daily [Active]; Plavix 75 mg Oral tab 1 tab once daily for Myocardial Reinfarction Prevention [Active]; metformin 500 mg Oral tab 1 tab 2 times per day for Type 2 Diabetes Mellitus [Active]; pregabalin 75 MG Oral 1 cap 2 times per day [Active]; Protonix 40 mg Oral TbEC 1 tab once daily [Active]; Protonix Oral [Active]; Naproxen Oral [Active]; atorvastatin Oral [Active]; RESTASIS [Active]; simvastatin 20 mg Oral tab 1 tab once daily for Mixed Hyperlipidemia [Active]; - PMHx: 22:19 High Cholesterol; Glaucoma; Hypertension; CVA; CAD; legally blind; COLON CA; Atrial jd3 Fib; Diabetes - IDDM; - Immunization history:: Adult Immunizations unknown. - Social history:: Smoking status: unknown. Screenin:11 Abuse screen: Denies threats or abuse. Nutritional screening: No deficits noted. ea Tuberculosis screening: No symptoms or risk factors identified. Fall Risk Secondary diagnosis (15 points) impaired mobility. Assessment: 22:19 General: Appears in no apparent distress. uncomfortable, Behavior is calm, cooperative, jd3 appropriate for age. Pain: Complains of pain in generalized Quality of pain is described as aching. Neuro: Level of Consciousness is awake, alert, obeys commands, Oriented to person, place, time, situation. Cardiovascular: Denies chest pain, Heart tones present Capillary refill < 3 seconds Patient's skin is warm and dry. Respiratory: Airway is patent Respiratory effort is even, unlabored, Respiratory pattern is regular, symmetrical, Breath sounds are clear bilaterally. GI: No signs and/or symptoms were reported involving the gastrointestinal system. : No signs and/or symptoms were reported regarding the genitourinary system. EENT: Reports blindness. Derm: Skin is intact, Skin is dry, Skin is normal, Skin temperature is warm. Musculoskeletal: Circulation, motion, and sensation intact. Range of motion: intact in all extremities. 23:32 Reassessment: Patient appears in no apparent distress at this time. No changes from jd3 previously documented assessment. Patient and/or family updated on plan of care and expected duration. Pain level reassessed. Patient is alert, oriented x 3, equal unlabored respirations, skin warm/dry/pink. 01/02 00:13 Reassessment: Patient and/or family updated on plan of care and expected duration. Pain ea level reassessed. Pt resting with eyes closed, respirations even and unlabored, chest expansions even and symmetrical. 01:25 Reassessment: Patient and/or family updated on plan of care and expected duration. Pain ea level reassessed. Patient is alert, oriented x 3, equal unlabored respirations, skin warm/dry/pink. 01:48 Reassessment: Patient and/or family updated on plan of care and expected duration. Pain ea level reassessed. Family notified of pt discharge, awaiting on family for transportation home. 02:14 Reassessment: Patient and/or family updated on plan of care and expected duration. Pain ea level reassessed. Patient is alert, oriented x 3, equal unlabored respirations, skin warm/dry/pink. Discharge instruction given to pt, pt left via wheelchair assisted by ED staff. Family at facility to transport pt home. Pt assisted to private vehicle per family, tolerating well. Vital Signs: 01/01 22:11 BP 136 / 83; Pulse 81; Resp 19; Temp 98.2; Pulse Ox 97% on R/A; Weight 69.85 kg; Height ea 5 ft. 2 in. (157.48 cm); 23:31 Pulse 76; Resp 15 S; Pulse Ox 98% on R/A; jd3 01/02 00:26 BP 153 / 62; Pulse 65; Resp 17; Pulse Ox 95% on R/A; ll2 01:49 BP 107 / 53; Pulse 64; Resp 18; Pulse Ox 97% on R/A; ea 01/01 22:11 Body Mass Index 28.17 (69.85 kg, 157.48 cm) ea ED Course: 01/01 22:09 Patient arrived in ED. sg 22:12 Arm band placed on right wrist. Patient placed in an exam room, on a stretcher, on ea monitor worker, on pulse oximetry. 22:13 Tex Curry RN is Primary Nurse. jd3 22:13 Patient has correct armband on for positive identification. Bed in low position. Call ea light in reach. Side rails up X2. 22:16 Triage completed. jd3 22:30 Misha Fulton NP is PHCP. pm1 22:30 Guero Bates MD is Attending Physician. pm1 23:59 Primary Nurse role handed off by Tex Curry, AIDEN sg 23:59 Mando Gaspar, AIDEN is Primary Nurse. sg 01/02 00:20 CXR XRAY In Process Unspecified. EDMS 01:25 Salome Mijares RN is Primary Nurse. ea 01:26 No provider procedures requiring assistance completed. Patient did not have IV access ea during this emergency room visit. Administered Medications: No medications were administered Outcome: 01:19 Discharge ordered by . pm1 01:49 Condition: stable ea 01:49 Instructed on discharge instructions, Demonstrated understanding of instructions, follow-up care, Prescriptions given X 1. 02:14 Discharged to home via wheelchair, with family. ea 02:15 Patient left the ED. ea Addendum: 01/05/2020 13:32 Addendum: COVID-19 Result: Negative result given to RN to notify pt. Unable to leave i w voice mail due to the number provided was either not a working number, the voice mail has not been set up, or the voice mailbox is full.. 01/06/2020 08:44 Addendum: COVID-19 Result: Negative result given to RN to notify pt. Attempted to i w contact pt regarding negative COVID-19 swab results. Unable to leave voice mail due to the number provided was either not a working number, the voice mail has not been set up, or the voice mailbox is full.. Signatures: Dispatcher [employer] Mando Byrd RN Shanel Miller RN Misha Yarbrough, SECOND RIDE FARE COLLECTOR SECOND RIDE FARE COLLECTOR pm1 Salome Mijares RN RN ea Davies, Jonathon, RN RN jd3 Laura Coronado RN RN ll2
--- NOTE | 2020-01-03 01:20 | EDPHYS ---
Physician Documentation [facility] Name: Leydi Guerrier Age: 74 yrs Sex: Female : 1945 Arrival Date: 01/02/2020 Time: 22:09 Bed 15 Private MD: ED Physician Guero Bates HPI: 01/01 22:47 This 74 yrs old Female presents to ER via EMS with complaints of Flu Symptoms. pm1 22:47 The patient or guardian reports cough, with productive sputum. Onset: The pm1 symptoms/episode began/occurred last night. Severity of symptoms: in the emergency department the symptoms are unchanged. Modifying factors: The symptoms are alleviated by nothing, the symptoms are aggravated by nothing. Associated signs and symptoms: Pertinent positives: fever, bodyaches. Associated signs and symptoms: Pertinent positives: sore throat. Historical: - Allergies: 22:19 Morphine; jd3 - Home Meds: 22:19 Hilda Oral [Active]; gabapentin Oral [Active]; Glipizide Oral [Active]; Iron CR Oral jd3 [Active]; Lyrica Oral [Active]; lisinopril 10 mg Oral tab 1 tab once daily [Active]; Januvia Oral [Active]; oxybutynin chloride 10 mg Oral tr24 1 tab once daily [Active]; Plavix 75 mg Oral tab 1 tab once daily for Myocardial Reinfarction Prevention [Active]; metformin 500 mg Oral tab 1 tab 2 times per day for Type 2 Diabetes Mellitus [Active]; pregabalin 75 MG Oral 1 cap 2 times per day [Active]; Protonix 40 mg Oral TbEC 1 tab once daily [Active]; Protonix Oral [Active]; Naproxen Oral [Active]; atorvastatin Oral [Active]; RESTASIS [Active]; simvastatin 20 mg Oral tab 1 tab once daily for Mixed Hyperlipidemia [Active]; - PMHx: 22:19 High Cholesterol; Glaucoma; Hypertension; CVA; CAD; legally blind; COLON CA; Atrial jd3 Fib; Diabetes - IDDM; - Immunization history:: Adult Immunizations unknown. - Social history:: Smoking status: unknown. ROS: 22:47 Eyes: Negative for injury, pain, redness, and discharge. pm1 22:47 Neck: Negative for injury, pain, and swelling, Cardiovascular: Negative for chest pain, palpitations, and edema. 22:47 Back: Negative for injury and pain, MS/Extremity: Negative for injury and deformity, Skin: Negative for injury, rash, and discoloration, Neuro: Negative for headache, weakness, numbness, tingling, and seizure. 22:47 Constitutional: Positive for body aches, subjective fever, Negative for poor PO intake. 22:47 ENT: Positive for sore throat, Negative for ear pain. 22:47 Respiratory: Positive for cough, Negative for shortness of breath, wheezing. 22:47 Abdomen/GI: Positive for abdominal pain, nausea, vomiting, and diarrhea. Exam: 22:47 Constitutional: This is a well developed, well nourished patient who is awake, alert, pm1 and in no acute distress. Head/Face: Normocephalic, atraumatic. Chest/axilla: Normal chest wall appearance and motion. Nontender with no deformity. No lesions are appreciated. 22:47 Skin: Warm, dry with normal turgor. Normal color with no rashes, no lesions, and no evidence of cellulitis. MS/ Extremity: Pulses equal, no cyanosis. Neurovascular intact. Full, normal range of motion. 22:47 Cardiovascular: Exam negative for acute changes, Rate: normal, Rhythm: regular, Pulses: no pulse deficits are appreciated. 22:47 Respiratory: the patient does not display signs of respiratory distress, Respirations: normal, Breath sounds: are clear throughout. 22:47 Neuro: Orientation: is normal, Mentation: is normal, Motor: is normal, moves all fours. Vital Signs: 22:11 BP 136 / 83; Pulse 81; Resp 19; Temp 98.2; Pulse Ox 97% on R/A; Weight 69.85 kg; Height ea 5 ft. 2 in. (157.48 cm); 23:31 Pulse 76; Resp 15 S; Pulse Ox 98% on R/A; jd3 01/02 00:26 BP 153 / 62; Pulse 65; Resp 17; Pulse Ox 95% on R/A; ll2 01:49 BP 107 / 53; Pulse 64; Resp 18; Pulse Ox 97% on R/A; ea 01/01 22:11 Body Mass Index 28.17 (69.85 kg, 157.48 cm) ea MDM: 01/01 22:30 Patient medically screened. pm1 01/02 01:16 Data reviewed: vital signs. Data interpreted: Pulse oximetry: on room air is 95 %. pm1 Interpretation: normal. Counseling: I had a detailed discussion with the patient and/or guardian regarding: the historical points, exam findings, and any diagnostic results supporting the discharge/admit diagnosis, lab results, radiology results, the need for outpatient follow up, to return to the emergency department if symptoms worsen or persist or if there are any questions or concerns that arise at home. 01/01 22:46 Order name: COVID-19 pm1 01/01 22:46 Order name: Flu; Complete Time: 00:31 pm1 01/01 22:46 Order name: Droplet/Contact Precautions; Complete Time: 22:59 pm1 01/01 22:46 Order name: CXR XRAY pm1 01/01 22:46 Order name: Strep; Complete Time: 23:54 pm1 01/01 23:54 Order name: Throat Culture EDLA 01/01 22:46 Order name: Labs collected and sent; Complete Time: 23:06 pm1 Administered Medications: No medications were administered Disposition: 05:37 Co-signature as Attending Physician, Guero Bates MD. [email or web address] Disposition: 01/03/20 01:19 Discharged to Home. Impression: Acute upper respiratory infection, unspecified. - Condition is Stable. - Discharge Instructions: Antibiotic Resistance, Upper Respiratory Infection, Adult, Viral Respiratory Infection, COVID-19. - Prescriptions for Guaifenesin AC 10- 100 mg/5 mL Oral Liquid - take 10 milliliter by ORAL route every 4 hours As needed; 240 milliliter. - Medication Reconciliation Form, Thank You Letter, Antibiotic Education, Prescription Opioid Use form. - Follow up: Emergency Department; When: As needed; Reason: Worsening of condition. Follow up: Private Physician; When: 2 - 3 days; Reason: Recheck today's complaints, Continuance of care, Re-evaluation by your physician. - Problem is new. - Symptoms have improved. Signatures: Dispatcher [employer] EDMS Misha Fulton, BARREL PAINTER BARREL PAINTER pm1 Salome Mijares RN RN ea Davies, Jonathon, RN RN jd3 Holmes, Maurice, MD MD [email or web address] Corrections: (The following items were deleted from the chart) 02:15 01:19 01/03/2020 01:19 Discharged to Home. Impression: Acute upper respiratory ea infection, unspecified. Condition is Stable. Forms are Medication Reconciliation Form, Thank You Letter, Antibiotic Education, Prescription Opioid Use. Follow up: Emergency Department; When: As needed; Reason: Worsening of condition. Follow up: Private Physician; When: 2 - 3 days; Reason: Recheck today's complaints, Continuance of care, Re-evaluation by your physician. Problem is new. Symptoms have improved. pm1
[2020-01-03 02:39] VITALS: TEMP 98.2
[2020-01-03 02:43] VITALS: BP 107/53; O2SAT 97
--- NOTE | 2020-01-03 07:51 | RAD REPORT ---
EXAM DESCRIPTION: RAD - Chest Single View - 01/03/2020 12:20 am CLINICAL HISTORY: COUGH COMPARISON: August 24 TECHNIQUE: AP portable chest image was obtained 01/03/2020 12:20 am . FINDINGS: Lung volumes are low. Chronic interstitial opacification pattern is present similar to the July study. No focal mass or consolidation. Heart and vasculature are normal. No measurable pleural e ffusion and no pneumothorax. No acute bony abnormality seen. No acute aortic findings suspected. IMPRESSION: Chronic interstitial pattern similar to comparison. Severity of disease could mask early edema or infiltrate.
--- OUTSIDE RECORDS SUMMARY | 2020-01-06 02:12 | XMS REPORT | Clinical Summary ---
:1945 Author Organization [facility] Address [address] [place] [address] Care Team Providers Name Role Phone Asked, Pcp Primary Care Provider Unavailable Allergies Active Allergy Reactions Severity Noted Date Comments Morphine 08/02/2016 Medications Not on file Active Problems Not on file Encounters Date Type Specialty Care Team Description 12/14/2019 Travel 12/10/2019 Travel 11/12/2019 Travel 11/11/2019 Travel 11/09/2019 Travel after 01/04/2019 Surgical History Surgery Date Site/Laterality Comments TOE AMPUTATION Left STENT Medical History Medical History Date Comments Blind Diabetes mellitus (HCC) Type 1 Hypertension High cholesterol Social History Tobacco Use Types Packs/Day Years Used Date Never Smoker Alcohol Use Drinks/Week oz/Week Comments No Sex Assigned at Date Recorded Not on file COVID-19 Exposure Response Date Recorded In the last month, have you been in contact with No / Unsure 12/14/2019 9:52 AM CDT someone who was confirmed or suspected to have Coronavirus / COVID-19? Last Filed Vital Signs Not on file Plan of Treatment Date Type Specialty Care Team Description 01/31/2020 Office Visit Neuropsychology Vandana Villela, PhD [address] [place], [place] [address] [phone] Health Maintenance Due Date Last Done Comments BREAST CANCER SCREENING 12/31/1995 COLONOSCOPY SCREENING 12/31/1995 SHINGLES VACCINES (#1) 12/31/1995 65+ PNEUMOCOCCAL VACCINE (1 of 1 - PPSV23) 2010 INFLUENZA VACCINE 10/30/2019 Results Not on fileafter 01/04/2019 Insurance Payer Benefit Plan / Subscriber ID Effective Dates Phone Addre ss Type Group MEDICARE MEDICARE PART A [id number] 2003-Present [facility], [place] Medicare AND B MEDICAID MEDICAID [id number] 2011-Present Med icaid Advance Directives For more information, please contact: [phone] Type Date Recorded 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
--- OUTSIDE RECORDS SUMMARY | 2020-01-06 02:13 | XMS REPORT | Clinical Summary ---
:1945 Author Organization [facility] Address [address] [place] [address] Care Team Providers Name Role Phone Pcp, [...] pain Bird Mota MD 02/17/2019 Travel after 01/04/2019 Social History Tobacco Use Types Packs/Day Years [...] Taken Blood Pressure 149/62 02/19/2019 7:34 AM [employer] DES[employer] Pulse 80 02/19/2019 7:34 AM [employer] DES[employer] Temperature 36.5 C (97.7 F) 02/19/2019 7:34 AM [employer] DES[employer]ER Respiratory Rate 18 02/19/2019 7:34 AM [employer] DES[employer] Oxygen Saturation 99% 02/19/2019 7:34 AM [employer] DES[employer] Inhaled Oxygen Concentration - - Weight 72.1 kg (159 lb) 02/17/2019 5:11 PM [employer] Height 157.5 cm (5' 2") 02/17/2019 5:11 PM [employer] DES[employer] Body Mass Index 29.08 02/17/2019 5:11 PM [employer] DES[employer] Plan of Treatment Not on file Procedures Procedure Name Priority Date/Time Associated Comments Diagnosis RHYTHM STRIP - SCAN 02/23/2019 8:51 AM [employer] DES[employer] POCT-GLUCOSE METER Routine 02/19/2019 7:25 Resul ts for this AM [employer] procedure are i n the results section. XR CHEST 1 VIEW STAT 02/19/2019 12:06 Results for this PORTABLE/BEDSIDE AM [employer] procedure a re in the results section. POCT-GLUCOSE METER Routine 02/18/2019 11:30 Resul ts for this PM [employer] procedure are i n the results section. POCT-GLUCOSE METER Routine 02/18/2019 8:42 Resul ts for this AM [employer] procedure are i n the results section. CBC W/PLT COUNT & STAT 02/18/2019 4:18 Result s for this AUTO DIFFERENTIAL AM [employer] procedure are in the results section. CBC W/PLT COUNT & STAT 02/18/2019 4:18 Result s for this AUTO DIFFERENTIAL AM [employer] procedure are in the results section. LIPID PANEL STAT 02/18/2019 4:18 Results for this AM [employer] procedure are i n the results section. HEMOGLOBIN A1C STAT 02/18/2019 4:18 Results f or this AM [employer] procedure are i n the results section. HEPATIC FUNCTION STAT 02/18/2019 4:18 Results for this PANEL AM [employer] procedure are i n the results section. BASIC METABOLIC PANEL STAT 02/18/2019 4:18 Re sults for this (7) AM [employer] procedure are i n the results section. POCT-GLUCOSE METER Routine 02/17/2019 10:44 Resul ts for this PM [employer] procedure are i n the results section. CT ABDOMEN/PELVIS STAT 02/17/2019 6:47 Result s for this WITH IV CONTRAST PM [employer] procedure a re in the results section. CBC W/PLT COUNT & STAT 02/17/2019 5:52 Result s for this AUTO DIFFERENTIAL PM [employer] procedure are in the results section. LIPASE STAT 02/17/2019 5:52 Results for this PM [employer] procedure are i n the results section. HEPATIC FUNCTION STAT 02/17/2019 5:52 Results for this PANEL PM [employer] DES[employer] procedure are i n the results section. BASIC METABOLIC PANEL STAT 02/17/2019 5:52 Re sults for this (7) PM [employer] procedure are i n the results section. CBC W/PLT COUNT & STAT 02/17/2019 5:52 Result s for this AUTO DIFFERENTIAL PM [employer] procedure are in the results section. PROTHROMBIN TIME/INR STAT 02/17/2019 5:52 Res ults for this PM [employer] procedure are i n the results section. WET PREP STAT 02/17/2019 5:45 Results for this PM [employer] procedure are i n the results section. CRITICAL CARE Routine 02/17/2019 4:41 Results fo r this PM [employer] procedure are i n the results section. after 01/04/2019 Results RHYTHM STRIP - SCAN (02/23/2019 8:51 AM [employer] DESIGNER) Narrative Performed At This result has an attachment that is no t available. POC-Glucose meter (02/19/2019 7:25 AM [employer] DESIGNER)Only the most recent of4 results within the time period is included. POC-Glucose Meter 81Comment: : TESTED AT 70 - 110 mg/dL [facility] [address], [place] [facility] [address]: Engineering Supervisor/Binder Roller ID = [id number] for Shahana Hewitt Specimen Blood Performing Organization Address City/State/Zipcode Phone Number [facility] [address] [place] [address] CENTER XR chest 1 view portable / bedside (02/19/2019 12:06 AM [employer] LABEL DESIGNER) Specimen Narrative Performed At FINAL REPORT [facility] RAD, CHEST, 1 VIEW, NON DEPT INDICATION: [...] External Ris In - 02/19/2019 12:14 AM [employer] DESIGNER FINAL REPORT RAD, CHEST, 1 VIEW, NON [...] 0:12:27 Performing Organization Address City/State/Zipcode Phone Number [facility] CBC with platelet count + automated diff (02/18/2019 4:18 AM [employer]EL DESIGNER)Only the most recent of2 resultswithin the time period is included. WBC 4.6 4.0 - 10.0 K/L [facility] RBC 3.34 (L) 4.00 - 5.00 M/L [...] Blood Performing Organization Address City/State/Zipcode Phone Number [facility] [address] [place] [address] Hemoglobin A1c (02/18/2019 4:18 AM [employer] LABEL DESIGNER) Hemoglobin A1C 8.6 (H) 4.3 - 6.1 % [facility] Specimen Blood Performing Organization Address City/State/Zipcode Phone Number [facility] [address] [place] [phone] Hepatic function panel (02/18/2019 4:18 AM [employer] LAB[employer] DESIGNER)Only the most recent of2 results within the [...] City/State/Zipcode Phone Number [facility] [address] [place], [place] [address] Lipid panel (02/18/2019 4:18 AM [employer] LAB[employer] DESIGNER) Triglycerides 46 mg/dL [facility] Cholesterol 90 mg/dL [facility] HDL 44 mg/dL [facility] LDL Calculated 37 mg/dL [facility] Specimen Blood Narrative Performed At Triglyceride Reference Range: [facility] Low Risk <150 [id number] High Risk 200-499 Very High Risk>=500 Cholesterol Reference Range: Low Risk <200 [id number] High Risk>240 HDL Cholesterol Reference Range: Low Risk >=60 High Risk <40 LDL Cholesterol Reference Range: Optimal<100 Near Liyslyy336-251 [id number] [id number] Very High >=190 Performing Organization Address City/State/Zipcode Phone Number [facility] [address] [place], [place] [phone] Basic metabolic panel (02/18/2019 4:18 AM [employer]EL DESIGNER)Only the most recent of2 results within the [...] GFR IS NOT mL/min/1.73 s q m [facility] ACCURATE CREATININE CLEARANCE IN PREDICTING GLOMERULAR FILTRATION RATE. ESTIMATED GFR IS NOT APPLICABLE FOR DIALYSIS PATIENTS. Specimen Blood Performing Organization Address City/State/Zipcode Phone Number [facility] [address] [facility] [place] [phone] abdomen pelvis with IV contrast (02/17/2019 6:47 PM W[employer]EN LABEL DESIGNER) Specimen Narrative Performed At FINAL REPORT [employer] RIS ABDOMINAL AND PELVIS CT DATED 02/17/2019 [...] MD Report Verified Date/Time:02/17/2019 18:58:34 Reading Location: [facility] [id number] [facility] Procedure Note Interface, External Ris In - 02/17/2019 7:00 PM [employer] DESIGNER FINAL REPORT ABDOMINAL AND PELVIS CT DATED [...] Verified Date/Time: 02/17/2019 1 8:58:34 Reading Location: [address] Performing Organization Address City/State/Zipcode Phone Number GE RIS PT/INR (02/17/2019 5:52 PM [employer] LAB[employer] DESIGNER) Protime 14.2 (H) 9.3 - 12.0 sec [facility] INR 1.3 <=5.9 [facility] Specimen Blood Narrative Performed At RECOMMENDED COUMADIN/WARFARIN INR THERAP Y RANGES [facility] STANDARD DOSE: 2.0 - 3.0 Includes: PROPHYLAXIS for venous thrombosis, systemic embolization; TREATMENT for venou s thrombosis and/or pulmonary embolus. HIGH RISK: Target INR is 2.5-3.5 for patients with mec hanical heart valves. Final Information (Auto Output) Final Information (Auto Output) Performing Organization Address City/State/Zipcode Phone Number [facility] [address] [place], [place] [address] Lipase (02/17/2019 5:52 PM WOVEN LABEL DESIGNER) Lipase 6 6 - 51 U/L [facility] Specimen Blood Performing Organization Address City/[facility]/Zipcode Phone Number [facility] [address] [place], [place] [phone] Wet prep, genital (02/17/2019 5:45 PM [employer] LABEL DESIGNER) WBC - wet prep Moderate white blood cells [facility] seen Clue cells - wet prep No clue cells seen [facility] Yeast - wet prep No budding yeast seen [facility] Trichomonas - wet prep No Trichomonas seen [facility] Bacteria - wet prep Few bacteria seen [facility] Specimen Genital Performing Organization Address City/[facility]/Zipcode Phone Number [facility] [address] [place], [place] [phone] CRITICAL CARE (02/17/2019 4:41 PM W[employer]EN LABEL DESIGNER) Narrative [place] [address]:53 AM Critical Care Performed by: Anabela Kimbrough MD Authorized by: Bird Garcia MD Total critical care time: 45 minutes Critical care was necessary to treat or prevent imminent or life-threatening deterioration of the fo llowing conditions: sepsis. Critical care was time spent personally by me [facility] the [facility] activities: blood draw for specimens, discussions wi [...] another provider o f my specialty. after 01/04/2019 Insurance Payer Benefit Plan / Group Subscriber ID Type Phone A ddress MEDICARE MEDICARE A B xxxxxxxxxxx Medicare [place] MED[place] MED[place]ID [place] xxxxxxxxx Advance Directives For more information, please contact:[address] Benjamin[place]ondo, [place] [phone] Code Status Date Activated Date Inactivated Comments Full Code 02/17/2019 10:31 PM 02/19/2019 1:18 PM This code status was determined by: Patient
--- OUTSIDE RECORDS SUMMARY | 2020-01-06 02:14 | XMS REPORT | Continuity of Care Document ---
:1945 Author Organization [facility] t Address [address] [place] [address] Care Team Providers Name Role Phone Asked, Pcp Primary Care Physician Unavailable Katie Henderson MD Attending Clinician Gagandeep VARGAS Attending Clinician Provider, Urgent Care Attending Clinician Unavailable Doctor Unassigned, Name Attending Clinician Unavailable Pob1, Care Clinic Attending Clinician Unavailable Rafael Kimbrough MD Attending Clinician Nakul Garcia MD Attending Clinician RAFAEL KIMBROUGH Attending Clinician Unavailable NAKUL GARCIA Admitting Clinician Unavailable Payers Payer Name Policy Policy Number Effective Expiration Source Type Date Date MEDICAREMEDICARE PART A [id number] 2003 [place] AND 00:00:00 [facility] [id number] [place], [facility] [id number] 2011 [place] -PresentMedicai 00:00:00 Meli hanson MEDICAREMEDICARE A xxxxxxxxxxx [facility] BxxxxxxxxxxxMedic[facility] - Hi dical [place] ZAMORANO MEDICAIDMEDICAID xxxxxxxxx [facility] Problems Condition Condition Condition Status Onset Resolution Last Treating Co mments Source Name Details Category Date Date Treatment Clinician Date Colovagina Colovagina Disease Active 2018-[address] l fistula l fistula 04-19 Luke s - 00:00: Medical 00 Center Allergies, Adverse Reactions, Alerts Allergy Allergy Status Severity Reaction(s) Onset Inactive Treating Comm ents Source Name Type Date Date Clinician Morphine Propensi Active Anxiety 2018-03 [facility] - adverse 00:00: Medical reaction 00 Center s Morphine Propensi Active [place] ty to 08-02 [facility] adverse 00:00: st reaction 00 s to drug Social History Social Habit Start Date Stop Date Quantity Comments Source Exposure to Not sure [place] Metho dist SARS-CoV-2 (event) History SDOH [facility] - Alcohol Std Drinks [facility] History SDOH [facility] - Alcohol Binge Medical [facility] ter Sex Assigned At [facility] History SDOH 2019-02-17 2019-02-[address] [facility] - Alcohol Frequency 00:00:00 00:00:00 [facility] Alcohol intake 2016-08-02 2016-08-02 Current [facility] thodist 00:00:00 00:00:00 non-drinker of alcohol (finding) Smoking Status Start Date Stop Date Source Never smoker [facility] ed[facility] [place] Medications Ordered Filled Start Stop Current Ordering Indication Dosage Frequency Signature Comments Components Source Medication Medication Date Date Medication? Clinician (SIG) Name Name lisinopril 2018-03- No 20mg QD Take [address] [facility] [address] (PRINIVIL,Z 04-21 by mouth [facility] - ESTRIL) 20 10:37: 00:00 daily. Medi jae MG tablet 36 :00 Center atorvastati 2018-03- No 10mg QD Take [address] n (LIPITOR) 04-21 by mouth [facility] es - 10 MG 10:37: 00:00 daily. Medical tablet 36 :00 Center SITagliptin 2018-03- No 50mg QD Take [address] [address] (JANUVIA) 04-21 by mouth [facility] - 50 MG 10:37: 00:00 daily. Medical tablet 36 :00 Center metFORMIN 2018-03- No 500mg Take [address] (GLUCOPHAGE 04-21 mg by [facility] - ) 500 MG 10:37: 00:00 mouth 2 Medic al tablet 36 :00 (two) Center times daily with breakfast and dinner. levoFLOXaci 2018-03- No 750mg QD Take [address] n 04-21 mg by [facility]ukes - (LEVAQUIN) 10:37: 00:00 mouth Medic al 750 MG 36 :00 daily. Center tablet famotidine 2018-03- No 20mg Q.5D Take [address] (PEPCID) 20 04-21 by mouth 2 L ukes - MG tablet 10:37: 00:00 (two) Medica l 36 :00 times Center daily. rivaroxaban 2018-03- No Take by [facility] (XARELTO) 04-21 mouth [facility] - 20 mg Tab 10:37: 00:00 daily with M edical tablet 36 :00 dinner. Center Lactobacill 2018-03- No 1{tbl} Q.5D Take [address] us 04-21 tablet by [facility] - acidoph-L.b 10:37: 00:00 mouth 2 Me dical ulgar 36 :00 (two) Center (FLORANEX) times 1 million daily. cell Tab per tablet aspirin 81 2018-03- No 81mg QD Take [address] MG EC 04-21 by mouth [facility] - tablet 10:37: 00:00 daily. Medical 36 :00 [place] aspirin 81 2018-03- No 81mg QD Take [address] MG EC 04-21- tablet (81 [facility] - tablet 00:00: 23:59 mg total) Medic al 00 :00 by mouth Center daily for 30 days. atorvastati 2018-03- No 10mg QD Take [address] n (LIPITOR) 1-22 12-22 tablet (10 L ukes - 10 MG 00:00: 23:59 mg total) Medica l tablet 00 :00 by mouth Center daily for 30 days. famotidine 2018-03- No 20mg Q.5D Take [address] (PEPCID) 20 04-21 tablet (20 L ukes - MG tablet 00:00: 23:59 mg total) Me dical 00 :00 by mouth 2 Center (two) times daily for 30 days. Lactobacill 2018-03- No 1{tbl} Q.5D Take [address] us 04-21 tablet by [facility]ukes - acidoph-L.b 00:00: 23:59 mouth 2 Me dical ulgar 00 :00 (two) Center (FLORANEX) times 1 million daily for cell Tab 30 days. per tablet lisinopril 2018-03- No 20mg QD Take [address] (PRINIVIL,Z 04-21 tablet (20 L ukes - ESTRIL) 20 00:00: 23:59 mg total) M edical MG tablet 00 :00 by mouth Center daily for 30 days. metFORMIN 2018-03- No 500mg Take [address] (GLUCOPHAGE 04-21 tablet [facility]ukes - ) 500 MG 00:00: 23:59 (500 mg Medic al tablet 00 :00 total) by Center mouth 2 (two) times daily with breakfast and dinner for 30 days. rivaroxaban 2018-03- No 20mg Take [address] (XARELTO) 04-21 tablet (20 [facility] - 20 mg Tab 00:00: 23:59 mg total) Me dical tablet 00 :00 by mouth Center daily with dinner for 30 days. SITagliptin 2018-03- No 50mg QD Take [address] (JANUVIA) 04-21 tablet (50 [facility] es - 50 MG 00:00: 23:59 mg total) Medica l tablet 00 :00 by mouth Center daily for 30 days. levoFLOXaci 2018-03- No 750mg QD Take [address] n 04-21 tablet [facility]ukes - (LEVAQUIN) 00:00: 23:59 (750 mg Med ical 750 MG 00 :00 total) by Center tablet mouth daily for 10 days. ondansetron 2018-03 Yes Take by [facility] (ZOFRAN) 4 1-20 mouth [facility] - mg/5 mL 18:05: once. Medical solution 04 Center acetaminoph 2018-03 Yes 650mg Take [address] en 1-20 mg by [facility]ukes - (TYLENOL) 18:05: mouth Medical 325 MG 04 every 6 Center tablet (six) hours as needed for Pain. metroNIDAZO 2018-03 Yes 500mg Take [address] LE (FLAGYL) 1-20 mg by [facility] - 500 MG 18:05: mouth Medical tablet 03 every 8 Center (eight) hours. Vital Signs Vital Name Observation Time Observation Value Comments Source Systolic blood 2019-02-19 07:34:00 149 mm[Hg] [facility] Diastolic blood 2019-02-19 07:34:00 62 mm[Hg] [facility] S [facility] Heart rate 2019-02-19 07:34:00 80 /min [facility] Body temperature 2019-02-19 07:34:00 36.5 Regla [facility] Respiratory rate 2019-02-19 07:34:00 18 /min [facility] Oxygen saturation in 2019-02-19 07:34:00 99 /min [facility] Arterial blood by Medical Ce nter Pulse oximetry Body height 2019-02-17 17:11:00 157.5 cm [facility] Body weight Measured 2019-02-17 17:11:00 72.122 kg [facility] BMI 2019-02-17 17:11:00 29.08 kg/m2 [facility] Procedures Procedure Date / Time Performed Performing Clinician [facility] e RHYTHM STRIP - SCAN 2019-02-23 08:51:58 Provider, Default [facility] POCT-GLUCOSE METER 2019-02-19 07:25:00 Bird Garcia [facility] XR CHEST 1 VIEW 2019-02-19 00:06:00 Bernabe Beltran [facility] es - PORTABLE/BEDSIDE [facility] POCT-GLUCOSE METER 2019-02-18 23:30:00 Bird Garcia [facility] POCT-GLUCOSE METER 2019-02-18 08:42:00 Radha [facility] BASIC METABOLIC PANEL 2019-02-18 04:18:00 Luis E [place] [address]) [facility] HEPATIC FUNCTION PANEL 2019-02-18 04:18:00 Luis E [facility] HEMOGLOBIN A1C 2019-02-18 04:18:00 Luis E [facility] LIPID PANEL 2019-02-18 04:18:00 Luis E [facility] CBC W/PLT COUNT & AUTO 2019-02-18 04:18:00 Luis E [facility] POCT-GLUCOSE METER 2019-02-17 22:44:00 Radha [facility] CT ABDOMEN/PELVIS WITH 2019-02-17 18:47:00 Luis E [facility] CONTRAST [facility] PROTHROMBIN TIME/INR 2019-02-17 17:52:00 Anabela Kimbrough [facility] BASIC METABOLIC PANEL 2019-02-17 17:52:00 Luis E [facility] () [facility] HEPATIC FUNCTION PANEL 2019-02-17 17:52:00 Luis E [facility] LIPASE 2019-02-17 17:52:00 Luis E [facility] CBC W/PLT COUNT & AUTO 2019-02-17 17:52:00 Luis E [facility] WET PREP 2019-02-17 17:45:00 Luis E [facility] CRITICAL CARE 2019-02-17 16:41:31 Luis E [facility] Plan of Care Planned Activity Planned Date Details Comments Source Future Scheduled 2019-10-30 INFLUENZA VACCINE [place] [facility] 00:00:00 [code = INFLUENZA VACCINE] Future Scheduled 2010 65+ PNEUMOCOCCAL [facility] 00:00:00 VACCINE (1 of 1 - PPSV23) [code = 65+ PNEUMOCOCCAL VACCINE (1 of 1 - PPSV23)] Future Scheduled 1995-12-31 BREAST CANCER [facility] thodist Test 00:00:00 SCREENING [code = BREAST CANCER SCREENING] Future Scheduled 1995-12-31 COLONOSCOPY SCREENING [facility] Test 00:00:00 [code = COLONOSCOPY SCREENING] Future Scheduled 1995-12-31 SHINGLES VACCINES (#1) [facility] Test 00:00:00 [code = SHINGLES VACCINES (#1)] Encounters Start End Encounter Admission Attending Care Care Encounter Source Date/Time Date/Time Type Type Clinicians Facility Department ID 2020-01-04 2020-01-04 [facility] 1.2.840.114 [id number] 00:00:00 00:00:00 Darlene Tineo [id number] [place] 4.2.7.2.686 Professio [phone] 2019-12-29 2019-12-29 [facility] 1.2.840.114 [id number] 00:00:00 00:00:00 Darlene Tineo [id number] [place] 4.2.7.2.686 Professio [phone] [address] 2019-12-23 2019-12-23 [facility] 1.2.840.114 [id number] 00:00:00 00:00:00 Darlene Tineo [id number] [place] 4.2.7.2.686 Professio [phone] [address] 2019-12-20 2019-12-20 [facility] 1.2.840.114 [id number] 00:00:00 00:00:00 Darlene Tineo [id number] [place] 4.2.7.2.686 Professio [phone] [address] 2019-12-16 2019-12-16 Refill Gagandeep [facility] 1.2.840.114 [id number] 00:00:00 00:00:00 Kevon Tineo [id number] [place] 4.2.7.2.686 Professio [phone] [address] 2019-12-16 2019-12-16 Refill Beatriz, [facility] 1.2.840.114 [id number] 00:00:00 00:00:00 Darlene A [place] [id number] [place] 4.2.7.2.686 Professio [phone] [address] 2019-12-16 2019-12-16 [facility] 1.2.840.114 [id number] 00:00:00 00:00:00 Darlene A [place] [id number] [place] 4.2.7.2.686 Professio [phone] [address] 2019-12-13 2019-12-13 [facility] 1.2.840.114 7 [id number] 00:00:00 00:00:00 Darlene A [place] 350.1.13.10 [place] 4.2.7.2.686 Professio [phone] [address] 2019-11-15 2019-11-15 [facility] 1.2.840.114 7 [id number] 00:00:00 00:00:00 Darlene A [place] [id number] [place] 4.2.7.2.686 Professio [phone] [address] 2019-11-10 2019-11-10 [facility] 1.2.840.114 7 [id number] 00:00:00 00:00:00 Darlene A [place] 350.1.13.10 [place] 4.2.7.2.686 Professio [phone] [address] 2019-11-04 2019-11-04 [facility] 1.2.840.114 [id number] 00:00:00 00:00:00 Darlene A Health 350.1.13.10 [place] 4.2.7.2.686 Professio [phone] [address] 2019-11-04 2019-11-04 Cleghorn Henderson, [facility] 1.2.840.114 7 [id number] 00:00:00 00:00:00 Darlene A [place] 350.1.13.10 [place] 4.2.7.2.686 Professio [phone] [address] 2019-11-03 2019-11-03 Urgent Provider, [facility] [id number] 14:08:19 14:28:19 Care [facility] [id number] Care [place] 4.2.7.2.686 Professio [phone] [place] [address] Office Building [facility] 2019-11-02 2019-11-02 Telephone [facility] 1.2.840.114 [id number] 00:00:00 00:00:00 Darlene Tineo 350.1.13.10 [place] 4.2.7.2.686 Professio [phone] [address] 2019-10-28 2019-10-28 Cleghorn Henderson, [facility] 1.2.840.114 7 [id number] 00:00:00 00:00:00 Darlene Tineo 350.1.13.10 [place] 4.2.7.2.686 Professio [phone] [address] 2019-10-27 2019-10-27 [facility] 1.2.840.114 7 [id number] 00:00:00 00:00:00 Darlene Tineo 350.1.13.10 [place] 4.2.7.2.686 Professio [phone] [address] 2019-10-22 2019-10-22 [facility] 1.2.840.114 [id number] 00:00:00 00:00:00 Kevon Tineo 350.1.13.10 [place] 4.2.7.2.686 Professio [phone] [address] 2019-10-18 2019-10-18 [facility] 1.2.840.114 7 [id number] 00:00:00 00:00:00 Darlene Tineo 350.1.13.10 [place] 4.2.7.2.686 Professio [phone] [address] 2019-10-16 2019-10-16 Refill Gagandeep, [facility] 1.2.840.114 [id number] 00:00:00 00:00:00 [place]on [place] 350.1.13.10 [place] 4.2.7.2.686 Professio [phone] n[address] 2019-10-06 2019-10-06 Orders Doctor LUIS ARMANDO 1.2.840.114 [id number] 00:00:00 00:00:00 Only Unassigned, ROSI 350.1.13.10 [facility] [phone] 009 2019-09-30 2019-09-30 Telephone Pob1, Acute [facility] 1.2.840.114 [id number] 00:00:00 00:00:00 [facility] 350.1.13.10 [place] 4.2.7.2.686 Professio [phone] nal [address] One 2019-09-13 2019-09-13 Orders Doctor LUIS ARMANDO 1.2.840.114 [id number] 00:00:00 00:00:00 Only Unassigned, ROSI 350.1.13.10 [place] [facility] 4.2.7.2.686 [phone] 009 Results Test Description Test Time Test Comments Results Result Comments Source POC-Glucose meter 2019-02-19 07:36:00 Test Item Value Reference Range Interpretation Comme nts POC-Glucose Meter (test code = 81 mg/dL 70-110 : [facility] [address]) [facility] [address]: Ropeman/Techni yosvany ID = [id number] for Shahana Hewitt Lab Interpretation (test code = Normal 57749-0) [facility] [id number] 07:36:00 Test Item Value Reference Range Interpretation Comments POC-GLUCOSE METER 81 mg/dL 70-110 : [facility] (BEAKER) (test code = [address] [facility], 1538) [facility] [address]: Ropeman/Techni yosvany ID = [id number] for Shahana Dietz RAD, CHEST, 1 VIEW, NON [id number] 00:12:00Reason for exam:->to verify tip of picc [...] silhouette. Additional findings: None. Signed: Erica Campoverde Verified Date/Time: 02/19/2019 00:12:27 12:12 AMXR chest 1 view portable / [id number] 00:12:00Interface, External Ris In - 02/19/2019 12:14 AM CSTFINAL REPORT RAD, CHEST, 1 VIEW, NON DEPT INDICATION: to verify tip of picc line. COMPARISON: None FINDINGS: Portable frontal view of the chest. IMPRESSION: Support Lines: The right PICC tip terminates in the lateral right subclavian region. Lungs and pleura: Hypoinflated lungs without airspace consolidation or pleural effusion. No pneumothorax.Heart and mediastinum: Unremarkable cardiomediastinal silhouette. Additionalfindings: None. Signed: Erica Campoverde Verified Date/Time: 02/19/2019 00:12:27 [facility] [id number] 23:41:00 Test Item Value Reference Range Interpretation Comments POC-GLUCOSE METER 96 mg/dL 70-110 : TESTED A T [facility] [address] (BEAKER) (test code = [address]) [place] [id number]: Ropeman/Techni yosvany ID = [id number] for Doreen Randhawa POCT-GLUCOSE [id number] 08:55:00 Test Item Value Reference Range Interpretation Comments POC-GLUCOSE METER 76 mg/dL 70-110 : TESTED A T [facility] [address] (BEAKER) (test code = [address]) [place] [address]: Ropeman/Techni yosvany ID = [id number] for Dyan Mukherjee Basic metabolic [id number] 05:09:00 Test Item Value Reference Range Interpretation Comments Sodium (test code = 140 meq/L 117-657 1257-2) Potassium (test code = 3.5 meq/L 3.6-5.5 L 2823-3) Chloride (test code = 108 meq/L 98-106 H 2075-0) CO2 (test code = 24 meq/L -2027-9) BUN (test code = 12 mg/dL - 3094-0) Creatinine (test code = 0.79 mg/dL 0.5-1.2 2160-0) Glucose (test code = 82 mg/dL 70-110 2345-7) Calcium (test code = 8.8 mg/dL 8.5-10.5 80903-0) EGFR (test code = 86 mL/min/1.73 [place] [address]-9) NOT ACCURATE CREATININE CLEARANCE IN PREDICTING GLOMERULAR FILTRATION RATE . ESTIMATED GFR I S NOT APPLICABLE FOR DIALYSIS PATIEN TS. Lab Interpretation Abnormal (test code = 25516-5) [facility] METABOLIC [id number] 05:09:00 Test Item Value Reference Range Interpretation Comments SODIUM (BEAKER) 140 meq/L 135-148 (test code = 381) POTASSIUM (BEAKER) 3.5 meq/L 3.6-5.5 L (test code = 379) CHLORIDE (BEAKER) 108 meq/L 98-106 H (test code = 382) CO2 (BEAKER) (test 24 meq/L code = 355) BLOOD UREA NITROGEN 12 mg/dL - (BEAKER) (test code = 354) CREATININE (BEAKER) [...] S NOT APPLICABLE FOR DIALYSIS PATIEN TS. Lipid [id number] 05:08:00 Test Item Value Reference Range Interpretation Comments Triglycerides (test 46 mg/dL code = 2571-8) Cholesterol (test code 90 mg/dL = 2093-3) HDL (test code = 44 mg/dL 5-9) LDL Calculated (test 37 mg/dL code = 00259-1) JAREN (test code = JAREN) Triglyceride Reference Range: Low Risk <150 Borderline 150-199 High Risk 200-499 Very High Risk >=500 Cholesterol Reference Range: Low Risk <200 Borderline 200-239 High Risk >240 HDL Cholesterol Reference Range: Low Risk >=60 High Risk <40 LDL Cholesterol Reference Range: Optimal <100 Near Optimal 100-129 Borderline 130-159 High 160-189 Very High >=190 [facility] [id number] 05:08:00 Test Item Value Reference Range Interpretation Comments Protein, Total (test code = 2885-2) 5.8 6.0- 8.5 gm/dL L Albumin (test code = 91152-9) 3.3 g/dL 3.5-5 L Total Bilirubin (test code = 0.4 mg/dL 0.1-1.2 1974-2) Bilirubin, Direct (test code = 0.2 mg/dL 0-0.4 1967-7) Alkaline Phosphatase (test code = 59 U/L 30-115 6768-6) AST (test code = 1920-8) 12 U/L 5-40 ALT (test code = 1742-6) 5 U/L 5-50 Lab Interpretation (test code = Abnormal 64205-5) [facility] [id number] 05:08:00 Test Item Value Reference Range Interpretation [...] 130-159 High 160-189 Very High >=190HEPATIC FUNCTION [id number] 05:08:00 Test Item Value Reference Range Interpretation [...] (test code = 5 U/L 5-50 347) Hemoglobin [id number] 05:02:00 Test Item Value Reference Range Interpretation Comments Hemoglobin A1C (test code = 4548-4) 8.6 % 4.3-6.1 H Lab Interpretation (test code = Abnormal 67055-9) [facility]MO[facility] [id number] 05:02:00 Test Item Value Reference Range Interpretation Comments HEMOGLOBIN A1C (BEAKER) (test code = 8.6 % 4.3-6.1 H 368) CBC with platelet count + automated [id number] 04:47:00 Test Item Value Reference Range Interpretation Comments WBC (test code = 6690-2) 4.6 4.0- 10.0 K/L RBC (test code = 789-8) 3.34 4.00- 5.00 M/L L MCHC (test code = 786-4) 32.8 32.0- 36.0 GM/DL L Hematocrit (test code = 4544-3) 28.7 % 36-46 L MCV (test code = 787-2) 85.9 fL 82-99 MCH (test code = 785-6) 28.1 pg 27-33 RDW (test code = 788-0) 13.5 % 12-15 Platelets (test code = 777-3) 145 150- 430 K/CU MM L MPV (test code = 57850-6) 11.0 fL 6-11.5 nRBC (test code = 413) 0 0- 0 /100 WBC % Neutros (test code = 429) 61 % % Lymphs (test code = 430) 28 % % Monos (test code = 431) 9 % % Eos (test code = 432) 1 % % Baso (test code = 437) 1 % # Neutros (test code = 670) 2.79 1.80- 8.00 K/L # Lymphs (test code = 414) 1.28 1.48- 4.50 K/L L # Monos (test code = 415) 0.40 0.00- 1.30 K/L # Eos (test code = 416) 0.05 0.00- 0.50 K/L # Baso (test code = 417) 0.06 0.00- 0.20 K/L Immature Granulocytes-Relative 0 % 0-0 (test code = 2801) Lab Interpretation (test code = Abnormal 03904-9) [facility] W/PLT COUNT & AUTO [id number] 04:47:00 Test Item Value Reference Range Interpretation [...] PERCENT (BEAKER) (test code = 2801) POCT-GLUCOSE [id number] 22:56:00 Test Item Value Reference Range Interpretation Comments POC-GLUCOSE METER 95 mg/dL 70-110 : TESTED A T [facility] [address] (BEAKER) (test code = [address]) [facility] [address]: Ropeman/Techni yosvany ID = [id number] for Jax berry Nehal CT, [id number] 18:58:00Reason for exam:->VAGINAL DISCHARGEWhat is the patient's [...] Schultz MDReport Verified Date/Time: 18:58:34 Reading Location: [facility] C013W Consult Reading Room CT abdomen pelvis with IV [id number] 18:58:00Interface, External Ris In - 02/17/2019 7:00 PM CSTFINAL REPORT ABDOMINAL AND PELVIS CT DATED 02/17/2019 CLINICAL INFORMATION: VAGINAL DISCHARGEvaginal discharge and abdominalpain TECHNIQUE: Axial images of the abdomen and [...] in the vagina. Colovaginal fistula cannot be entirely excluded. No mass, adenopathy or ascites is present. IMPRESSION: 1. Status post cholecystectomy and hysterectomy.2. Status post ascending hemicolectomy with wall thickening in the hepatic flexure adjacent to the ileocolonic anastomosis. Please correlate clinically.3. Air in the vagina. Please correlate clinically for possible colovaginal fistula. Signed: Erica Schultz MDReport Verified Date/Time: 02/17/2019 18:58:34 Reading Location: [facility] B1 C013W Consult Reading [facility] 18:20[facility]00 Test Item Value Reference Range Interpretation Comments Lipase (test code = 3040-3) 6 U/L 6-51 Lab Interpretation (test code = Normal 87090-0) [facility] 18:20:00 Test Item Value Reference Range Interpretation Comments LIPASE (BEAKER) (test code = 749) 6 U/L 6-51 BASIC METABOLIC [id number] 18:20:00 Test Item Value Reference Range Interpretation [...] TO CALCULA TE ESTIMATED GFR. HEPATIC FUNCTION [id number] 18:19:00 Test Item Value Reference Range Interpretation [...] (test code = 5 U/L 5-50 347) [id number] 18:11:00 Test Item Value Reference Range Interpretation Comments Protime (test code = 14.2 9.3- 12.0 sec H 5902-2) INR (test code = 1.3 <=5.9 6301-6) JAREN (test code = JAREN) RECOMMENDED COUMADIN/WARFARIN INR THERAPY RANGESSTANDARD DOSE: 2.0 - 3.0 Includes: PROPHYLAXIS for venous thrombosis, systemic embolization; TREATMENT for venous thrombosis and/or pulmonary embolus.HIGH RISK: Target INR is 2.5-3.5 for patients with mechanical heart valves.Final Information (Auto Output)Final Information (Auto Output) Lab Interpretation Abnormal (test code = 92149-5) [facility] Angeles[facility]HR[facility] TIME/[id number] 18:11:00 Test Item Value Reference Range Interpretation [...] Information (Auto Output)CBC W/PLT COUNT & AUTO [id number] 18:01:00 Test Item Value Reference Range Interpretation [...] 0-0 PERCENT (BEAKER) (test code = 2801) Wet prep, [id number] 17:57:00 Test Item Value Reference Range Interpretation Comments WBC - wet prep (test Moderate white blood code = 72317-4) cells seen Clue cells - wet prep No clue cells seen (test code = 51717-4) Yeast - wet prep (test No budding yeast seen code = 19323-3) Trichomonas - wet prep No Trichomonas seen (test code = 6565-6) Bacteria - wet prep Few bacteria seen (test code = 47942-6) [facility] Angeles[facility] [id number] 17:57:00 Test Item Value Reference Range Interpretation [...] bacteria seen (BEAKER) (test code = 532) CRITICAL [id number] 16:41:31Anabela Kimbrough MD 02/18/2019 6:53 AMCritical CarePerformed by: Anabela Kimbrough MDAuthorized by: Bird Garcia MD Total critical care time: 45 minutesCritical care was nec essary to treat or prevent imminent or life-threatening deterioration of the following conditions: sepsis.Critical care was time spent personally by me on the following activities: blood draw for specimens, discussions with consultants, evaluation of patient's response to treatment, obtaining history f rom patient or surrogate, ordering and review of laboratory studies, pulse oximetry, development of treatment plan with patient or surrogate, discussions with primary provider, interpretation of cardiac output measurements, examination of patient, ordering and performing treatments and interventions, o rdering and review of radiographic studies and re-evaluation of patient's condition.Subsequent provider of critical care: I assumed direction of critical care for this patient from another provider of my specialty.[facility] [place]
--- OUTSIDE RECORDS SUMMARY | 2020-01-06 02:15 | XMS REPORT | Summary of Care ---
:1945 Author Organization [facility] Address [address] [place] [address] Care Team Providers Name Role Phone Katie Henderson MD Primary Care Provider Leah Poon Steel Layer Sammi Eason Insurance Hmo Encounter Details Date Type Department Care Team Description 09/13/2019 Orders Only [facility] Doctor Unassigned, No [address] [facility] [place] [address] [place] [place] [address] Allergies Active Allergy Reactions Severity Noted Date Comments Morphine Hallucinations 06/28/2016 documented as of this encounter (statuses as of 10/12/2019) Medications Medication Sig Dispensed Refills Start Date [...] twice daily per MONITORING) Kit code E11.9. ciprofloxacin HCl Take 1 tablet by 112 tablet 0 05/12/2019 Active 500 mg mouth every 12 tabletIndications: (twelve) hours. Vaginal bleeding, Take Ciprofloxacin Osteomyelitis of 500mg PO BID x 8 fifth toe of right weeks for foot Osteomyelitis (Bone Infection). Take with a probiotic 1 Tab daily lancets (BD ULTRA Check sugars BID 100 Each 11 05/18/2019 Active FINE LANCETS) 33 times a [...] as of this encounter (statuses as of 10/12/2019) Active Problems Problem Noted Date Gastrointestinal hemorrhage with hematemesis 0 Non-seasonal allergic rhinitis due to pollen 0 Non-seasonal allergic rhinitis, unspecified trigger Dyslipidemia 05/12/2019 Coronary artery disease involving cheesh-na coronary brian ry of cheesh-na heart 05/12/2019 without angina pectoris PAD (peripheral [...] Overview: Added automatically from request for kinsey [place] [id number] Urine incontinence 10/07/2018 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 10/17/2017 mellitus Overgrown toenails 10/17/2017 Colon cancer 06/05/2017 Malignant neoplasm of colon, unspecified part of colon 05/06/2017 Overview: Added automatically from request for kinsey [place] [id number] Colonic mass 03/14/2017 Overview: Added automatically from request for kinsey [place] [id number] 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 S/P hysterectomy 10/29/2016 Vulvar lesion 10/29/2016 Type 2 diabetes mellitus with complication 10/11/2016 Diffuse pain 10/11/2016 Near syncope 06/28/2016 UTI (urinary tract infection) 05/24/2016 Generalized abdominal pain 05/24/2016 documented as of this encounter (statuses as of 10/12/2019) Resolved Problems Problem Noted Date Resolved Date Hematuria 10/29/2016 10/29/2016 documented as of this encounter (statuses as of 10/12/2019) Immunizations Name Administration Dates Next Due Influenza [...] Travel End No recent travel history available. documented as of this encounter Last Filed Vital Signs Not on filedocumented in this encounter Plan of Treatment Date Type Specialty Care Team Description 10/14/2019 Office Visit Family Medicine Kevon Donis MD [address] [place] [address] Dr Mccarthy [place], [place] [address] [phone] Health Maintenance Due Date Last Done Comments [...] history exists URINE MICROALBUMIN 08/22/2019 08/21/2018, 04/30/2017 INFLUENZA VACCINE (#1) 2019 02/01/2019 LDL-C 02/12/2020 02/11/2019, 10/15/2018, 08/21/2018, Additional history exists CREATININE (SERUM) 02/21/2020 02/20/2019, 02/12/2019, 02/11/2019, Additional history exists Depression Screening 05/12/2020 05/12/2019 COLONOSCOPY 11/20/2028 11/20/2018, 03/20/2017 HEPATITIS C (HCV) SCREEN Completed 01/08/2017 EYE EXAM Discontinued documented as of this encounter Procedures Procedure Name Priority Date/Time Associated Diagnosis Comme nts HOME HEALTH - OTHER Routine 09/13/2019 12:01 AM CDT documented in this encounter Results Not on filedocumented in this encounter Insurance Payer Benefit Plan / Subscriber ID Effective Dates Phone Addre ss Type Group MEDICARE MEDICARE PART xxxxxxxxxxx 2003-Prese [phone] [address] Medicare A & B nt 2 [id number] [place] [address] [facility] MEDICAID OF xxxxxxxxx 2018-Presen [phone] [address] Medicaid [place] t 0 [id number] [place] [address] documented as of this encounter Advance Directives Name Relationship Healthcare Agent Communication Relationship Jose Guerrier Child Primary healthcare agent Obdulio Rey Nephew [facility] agent (Mobile)
--- OUTSIDE RECORDS SUMMARY | 2020-01-06 02:15 | XMS REPORT | Summary of Care ---
:1945 Author Organization [facility] - [facility] Address [address] [place] [address] Care Team Providers Name Role Phone Katie Henderson MD Primary Care Provider Leah Poon Cloth Feeder Sammi Eason Insurance Hmo Encounter Details Date Type Department Care Team Description 10/06/2019 Orders Only [facility] Doctor Unassigned, No 301 [facility] [place] [address] [place] [address] Allergies Active Allergy Reactions Severity Noted Date Comments Morphine Hallucinations 06/28/2016 documented as of this encounter (statuses as of 10/06/2019) Medications Medication Sig Dispensed Refills Start Date [...] Active tabletIndications: MOUTH EVERY DAY Essential hypertension XARELTO 20 mg TAKE 1 TABLET BY 30 tablet 2 09/23/2019 Active tabletIndications: MOUTH DAILY PAD (peripheral artery disease), Coronary artery disease involving [place] coronary artery of [place] heart without angina pectoris GLIPIZIDE 10 mg TAKE 2 TABLETS BY 120 tablet 2 09/23/2019 Active tabletIndications: MOUTH TWICE DAILY Type 2 diabetes BEFORE BREAKFAST mellitus with AND DINNER complication JANUVIA 25 mg tablet TAKE 1 TABLET BY 30 tablet 10 09/21/2019 Active MOUTH EVERY DAY PREGABALIN 300 mg TAKE 1 CAPSULE BY 60 capsule 10 09/27/2019 Active capsuleIndications: MOUTH TWICE DAILY Other chronic pain documented as of this encounter (statuses as of 10/06/2019) Active Problems Problem Noted Date Gastrointestinal hemorrhage with hematemesis 0 Non-seasonal allergic rhinitis due to pollen 0 Non-seasonal allergic rhinitis, unspecified trigger Dyslipidemia 05/12/2019 Coronary artery disease involving [place] coronary brian ry of [place] heart 05/12/2019 without angina pectoris PAD (peripheral [...] Added automatically from request for kinsey [place] [id number] Urine incontinence 10/07/2018 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 10/17/2017 mellitus Overgrown toenails 10/17/2017 Colon cancer 06/05/2017 Malignant neoplasm of colon, unspecified part of colon 05/06/2017 Overview: Added automatically from request for kinsey [place] [id number] Colonic mass 03/14/2017 Overview: Added automatically from request for kinsey [place] [id number] 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 S/P hysterectomy 10/29/2016 Vulvar lesion 10/29/2016 Type 2 diabetes mellitus with complication 10/11/2016 Diffuse pain 10/11/2016 Near syncope 06/28/2016 UTI (urinary tract infection) 05/24/2016 Generalized abdominal pain 05/24/2016 documented as of this encounter (statuses as of 10/06/2019) Resolved Problems Problem Noted Date Resolved Date Hematuria 10/29/2016 10/29/2016 documented as of this encounter (statuses as of 10/06/2019) Immunizations Name Administration Dates Next Due Influenza [...] Office Visit Family Medicine Kevon Donis MD [address] [place] [address] Dr Johnson [address] [place] [address] [phone] Health Maintenance Due Date Last Done Comments [...] Name Priority Date/Time Associated Diagnosis 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 Medicare A & B nt 2 [id number] RADHA RAMOS [id number] [facility] MEDICAID OF xxxxxxxxx 2018-Presen [phone] [address] Medicaid [place] t 0 [id number] [place] [address] documented as of this encounter Advance Directives Name Relationship Healthcare Agent Communication Relationship Jose Guerrier Child Primary healthcare agent [email or web address] Obdulio Samson [facility] agent (Mobile)
--- OUTSIDE RECORDS SUMMARY | 2020-01-06 02:16 | XMS REPORT | Summary of Care ---
:1945 Author Organization [facility] Address [address] [place] [address] Care Team Providers Name Role Phone Katie Henderson MD Primary Care Provider Leah Poon Stockfeed Miller Sammi Eason Insurance Hmo Reason for Visit Reason Comments Forms Samara Bland Encounter Details Date Type Department Care Team Description 10/18/2019 Telephone [facility] Pediatric Matilde Henderson Forms (Freestyle and Adult Primary A, MD Bland) Care- [address], [address] [place] [address] [place] [phone] [address] [phone] Allergies Active Allergy Reactions Severity Noted Date Comments Morphine Hallucinations 06/28/2016 documented as of this encounter (statuses as of 10/18/2019) Medications Medication Sig Dispensed Refills Start Date [...] of TABLETS BEFORE insulin LUNCH AND DINNER baclofen 5 mg Take 2.5 mg by 30 tablet 3 07/23/2019 Active TabIndications: mouth at bedtime. Other chronic pain LISINOPRIL 10 mg TAKE 1 TABLET BY 90 tablet 0 08/04/2019 Active tabletIndications: MOUTH EVERY DAY Essential hypertension XARELTO 20 mg TAKE 1 TABLET BY 30 tablet 2 09/23/2019 Active tabletIndications: MOUTH DAILY PAD (peripheral artery disease), Coronary artery disease involving [place] coronary artery of [place] heart without angina pectoris GLIPIZIDE 10 mg [...] capsuleIndications: MOUTH TWICE DAILY Other chronic pain Diclofenac Sodium 1 APPLY 2-4 GRAMS 100 g 10 10/18/2019 Active % gelIndications: TOPICALLY THREE Other chronic pain TIMES A DAY NEEDED FOR PAIN documented as of this encounter (statuses as of 10/18/2019) Active Problems Problem Noted Date Gastrointestinal hemorrhage with hematemesis 0 Non-seasonal allergic rhinitis due to pollen 0 Non-seasonal allergic rhinitis, unspecified trigger Dyslipidemia 05/12/2019 Coronary artery disease involving [place] coronary brian ry of [place] heart 05/12/2019 without angina pectoris PAD (peripheral [...] Added automatically from request for kinsey [place] [id number] Urine incontinence 10/07/2018 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 10/17/2017 mellitus Overgrown toenails 10/17/2017 Colon cancer 06/05/2017 Malignant neoplasm of colon, unspecified part of colon 05/06/2017 Overview: Added automatically from request for kinsey arie [id number] Colonic mass 03/14/2017 Overview: Added automatically from request for kinsey arie [id number] 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 S/P hysterectomy 10/29/2016 Vulvar lesion 10/29/2016 Type 2 diabetes mellitus with complication 10/11/2016 Diffuse pain 10/11/2016 Near syncope 06/28/2016 UTI (urinary tract infection) 05/24/2016 Generalized abdominal pain 05/24/2016 documented as of this encounter (statuses as of 10/18/2019) Resolved Problems Problem Noted Date Resolved Date Hematuria 10/29/2016 10/29/2016 documented as of this encounter (statuses as of 10/18/2019) Immunizations Name Administration Dates Next Due Influenza [...] been in contact with No / Unsure 10/15/2019 1:26 PM CDT someone who was confirmed or suspected to have Coronavirus / COVID-19? documented as of this encounter Last Filed Vital Signs Not on filedocumented in this encounter Plan of Treatment Date Type Specialty Care Team Description 10/28/2019 Office Visit Family Medicine Kevon Donis MD [address] [place] [address] Dr Mccarthy [place] [address] 15 [phone] Health Maintenance Due Date Last Done Comments [...] O. BOX Medicare A & B 2 [id number] [place] [address] [facility] MEDICAID OF xxxxxxxxx 2018-Presen [phone] [address] Medicaid [place] t 0 [id number] [place] [address] documented as of this encounter Advance Directives Name Relationship Healthcare Agent Communication Relationship Jose Guerrier Child Primary healthcare agent [email or web address] Obdulio Samson agent (Mobile)
--- OUTSIDE RECORDS SUMMARY | 2020-01-06 02:16 | XMS REPORT | Summary of Care ---
:1945 Author Organization [facility] Address [address] [place] [address] Care Team Providers Name Role Phone Katie Henderson MD Primary Care Provider Leah Poon Card Decorator Sammi Eason Insurance Hmo Reason for Visit Reason Comments DME Encounter Details Date Type Department Care Team Description 10/22/2019 Telephone [facility] Pediatric and Kevon Aguilar MD DME Adult Primary Care- [address] [facility] [address] Tineo [facility] [address] [place] [address] [address] [place] [address] [phone] Allergies Active Allergy Reactions Severity Noted Date Comments Morphine Hallucinations 06/28/2016 documented as of this encounter (statuses as of 10/25/2019) Medications Medication Sig Dispensed Refills Start Date [...] (peripheral artery disease), Coronary artery disease involving [place] coronary artery of [place] heart without angina pectoris GLIPIZIDE 10 mg [...] as of this encounter (statuses as of 10/25/2019) Active Problems Problem Noted Date Gastrointestinal hemorrhage with hematemesis 0 Non-seasonal allergic rhinitis due to pollen 0 Non-seasonal allergic rhinitis, unspecified trigger Dyslipidemia 05/12/2019 Coronary artery disease involving [place] coronary brian ry of [place] heart 05/12/2019 without angina pectoris PAD (peripheral [...] Added automatically from request for kinsey arie [id number] Urine incontinence 10/07/2018 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 10/17/2017 mellitus Overgrown toenails 10/17/2017 Colon cancer 06/05/2017 Malignant neoplasm of colon, unspecified part of colon 05/06/2017 Overview: Added automatically from request for kinsey arie [id number] Colonic mass 03/14/2017 Overview: Added automatically from request for kinsey arie [id number] 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 S/P hysterectomy 10/29/2016 Vulvar lesion 10/29/2016 Type 2 diabetes mellitus with complication 10/11/2016 Diffuse pain 10/11/2016 Near syncope 06/28/2016 UTI (urinary tract infection) 05/24/2016 Generalized abdominal pain 05/24/2016 documented as of this encounter (statuses as of 10/25/2019) Resolved Problems Problem Noted Date Resolved Date Hematuria 10/29/2016 10/29/2016 documented as of this encounter (statuses as of 10/25/2019) Immunizations Name Administration Dates Next Due Influenza [...] Office Visit Family Medicine Kevon Donis MD [address] [place] [address] Dr Mccarthy [place], [place] [address] [phone] Health Maintenance Due Date Last Done Comments [...] BOX Medicare A & B nt 2 [id number] LULU FREEDOMRADHA [address] [facility] MEDICAID OF xxxxxxxxx 2018-Presen [phone] [address] Medicaid [place] t 0 [id number] [place] [address] documented as of this encounter Advance Directives Name Relationship Healthcare Agent Communication Relationship Jose Guerrier Child Primary healthcare agent [email or web address] Obdulio Samson [facility] agent (Mobile)
--- OUTSIDE RECORDS SUMMARY | 2020-01-06 02:16 | XMS REPORT | Summary of Care ---
:1945 Author Organization [facility] Address [address] [place] [address] Care Team Providers Name Role Phone Katie Henderson MD Primary Care Provider Leah Poon Cork Floor Installer Sammi Eason Insurance Hmo Reason for Visit Reason Comments Refill Request Encounter Details Date Type Department Care Team Description 10/16/2019 Refill [facility] Pediatric and Keovn Aguilar MD Refill Request Adult Primary Care- [address] [facility] [address] Tineo [facility] 205 [address] [place] [address] [address] [place] [address] [phone] Allergies Active Allergy Reactions Severity Noted Date Comments Morphine Hallucinations 06/28/2016 documented as of this encounter (statuses as of 10/18/2019) Medications Medication Sig Dispensed Refills Start End [...] Use BID, DX E11.9 100 Each 11 Active LANCET) (Brand upon 0 MiscIndications: insurance Type 2 diabetes approval) mellitus with complication Blood-Glucose Check glucose 1 Each 0 Ac tive Meter (BLOOD level twice daily 0 GLUCOSE per code E11.9. MONITORING) Kit ciprofloxacin HCl Take 1 tablet by 112 [...] tabletIndications: MOUTH EVERY DAY 0 Essential hypertension XARELTO 20 mg TAKE 1 TABLET BY 30 tablet 2 Active tabletIndications: MOUTH DAILY 0 PAD (peripheral artery disease), Coronary artery disease involving [place] coronary artery of [place] heart without angina pectoris GLIPIZIDE 10 mg TAKE 2 TABLETS BY 120 tablet 2 Active tabletIndications: MOUTH TWICE DAILY 0 Type 2 diabetes BEFORE BREAKFAST mellitus with AND DINNER complication JANUVIA 25 mg TAKE 1 TABLET BY 30 tablet 10 Active tablet MOUTH EVERY DAY 0 PREGABALIN 300 mg TAKE 1 CAPSULE BY 60 capsule 10 Active capsuleIndications MOUTH TWICE DAILY 0 : Other chronic pain Diclofenac Sodium APPLY 2-4 GRAMS 100 g 10 Active 1 % TOPICALLY THREE 0 gelIndications: TIMES A DAY Other chronic pain NEEDED FOR PAIN Diclofenac Sodium Take 2-4 grams 100 g 3 0 Discontinued (VOLTAREN) 1 % three times a day 0 20 gelIndications: as needed for pain Other chronic pain documented as of this encounter (statuses as of 10/18/2019) Active Problems Problem Noted Date Gastrointestinal hemorrhage with hematemesis 0 Non-seasonal allergic rhinitis due to pollen 0 Non-seasonal allergic rhinitis, unspecified trigger Dyslipidemia 05/12/2019 Coronary artery disease involving [place] coronary brian ry of [place] heart 05/12/2019 without angina pectoris PAD (peripheral [...] Added automatically from request for kinsey [place] [id number] Urine incontinence 10/07/2018 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 BOX Medicare A & B 2 [id number] RADHA RAMOS [id number] [facility] MEDICAID OF xxxxxxxxx 2018-Presen [phone] [address] Medicaid [facility] 0 [id number] [place] [address] documented as of this encounter Advance Directives Name Relationship Healthcare Agent Communication Relationship Jose Fareed Child Primary healthcare agent [email or web address] Obdulio Samson [facility] agent (Mobile)
--- OUTSIDE RECORDS SUMMARY | 2020-01-06 02:17 | XMS REPORT | Summary of Care ---
:1945 Author Organization [facility] Address [address] [place] [address] Care Team Providers Name Role Phone Katie Henderson MD Primary Care Provider Leah Poon Baseball Coach Sammi Eason Insurance Hmo Reason for Visit Reason Comments Forms Encounter Details Date Type Department Care Team Description 10/28/2019 Telephone [facility] Pediatric and Anne Henderson Forms Adult Primary Care- MD Tineo [address] [place] [address] [address] [place] [address] [place] [address] [phone] Allergies Active Allergy Reactions Severity Noted Date Comments Morphine Hallucinations 06/28/2016 documented as of this encounter (statuses as of 10/28/2019) Medications Medication Sig Dispensed Refills Start Date [...] (peripheral artery disease), Coronary artery disease involving [place] coronary artery of [place] heart without angina pectoris GLIPIZIDE 10 mg [...] as of this encounter (statuses as of 10/28/2019) Active Problems Problem Noted Date Gastrointestinal hemorrhage with hematemesis 0 Non-seasonal allergic rhinitis due to pollen 0 Non-seasonal allergic rhinitis, unspecified trigger Dyslipidemia 05/12/2019 Coronary artery disease involving [place] coronary brian ry of [place] heart 05/12/2019 without angina pectoris PAD (peripheral [...] Added automatically from request for kinsey arie [id number] Urine incontinence 10/07/2018 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 10/17/2017 mellitus Overgrown toenails 10/17/2017 Colon cancer 06/05/2017 Malignant neoplasm of colon, unspecified part of colon 05/06/2017 Overview: Added automatically from request for kinsey arie [id number] Colonic mass 03/14/2017 Overview: Added automatically from request for kinsey arie [id number] 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 S/P hysterectomy 10/29/2016 Vulvar lesion 10/29/2016 Type 2 diabetes mellitus with complication 10/11/2016 Diffuse pain 10/11/2016 Near syncope 06/28/2016 UTI (urinary tract infection) 05/24/2016 Generalized abdominal pain 05/24/2016 documented as of this encounter (statuses as of 10/28/2019) Resolved Problems Problem Noted Date Resolved Date Hematuria 10/29/2016 10/29/2016 documented as of this encounter (statuses as of 10/28/2019) Immunizations Name Administration Dates Next Due Influenza [...] Office Visit Family Medicine Kevon Donis MD [address] [place] [address] Dr Mccarthy [place], [place] [address] [phone] Health Maintenance Due Date Last Done Comments [...] BOX Medicare A & B nt 2 [id number] RADHA RAMOS [id number] [facility] MEDICAID OF xxxxxxxxx 2018-Presen [phone] [address] Medicaid [place] t 0 [id number] [place] [address] documented as of this encounter Advance Directives Name Relationship Healthcare Agent Communication Relationship Jose Guerrier Child Primary healthcare agent [email or web address] Obdulio Samson [facility] agent (Mobile)
--- OUTSIDE RECORDS SUMMARY | 2020-01-06 02:17 | XMS REPORT | Summary of Care ---
:1945 Author Organization [facility] - [facility] Address [address] [place] [id number] Care Team Providers Name Role Phone Katie Henderson MD Primary Care Provider Leah Poon Manager Generation Sammi Eason Insurance Hmo Reason for Visit Reason Comments Forms IMAGINATE - [employer] Reality Encounter Details Date Type Department Care Team Description 10/27/2019 Telephone [facility] Pediatric Matilde Henderson Forms (IMAGINATE - Technovating Reality ) and Adult Primary MD Katie Care- [address], [address] [place] [address] [place] [phone] [id number] [phone] Allergies Active Allergy Reactions Severity Noted Date Comments Morphine Hallucinations 06/28/2016 documented as of this encounter (statuses as of 10/27/2019) Medications Medication Sig Dispensed Refills Start Date [...] (peripheral artery disease), Coronary artery disease involving [place] coronary artery of [place] heart without angina pectoris GLIPIZIDE 10 mg [...] as of this encounter (statuses as of 10/27/2019) Active Problems Problem Noted Date Gastrointestinal hemorrhage with hematemesis 0 Non-seasonal allergic rhinitis due to pollen 0 Non-seasonal allergic rhinitis, unspecified trigger Dyslipidemia 05/12/2019 Coronary artery disease involving [place] coronary brian ry of [place] heart 05/12/2019 without angina pectoris PAD (peripheral [...] Added automatically from request for kinsey arie [id number] Urine incontinence 10/07/2018 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 10/17/2017 mellitus Overgrown toenails 10/17/2017 Colon cancer 06/05/2017 Malignant neoplasm of colon, unspecified part of colon 05/06/2017 Overview: Added automatically from request for kinsey arie [id number] Colonic mass 03/14/2017 Overview: Added automatically from request for kinsey arie [id number] 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 S/P hysterectomy 10/29/2016 Vulvar lesion 10/29/2016 Type 2 diabetes mellitus with complication 10/11/2016 Diffuse pain 10/11/2016 Near syncope 06/28/2016 UTI (urinary tract infection) 05/24/2016 Generalized abdominal pain 05/24/2016 documented as of this encounter (statuses as of 10/27/2019) Resolved Problems Problem Noted Date Resolved Date Hematuria 10/29/2016 10/29/2016 documented as of this encounter (statuses as of 10/27/2019) Immunizations Name Administration Dates Next Due Influenza [...] Visit Family Medicine Kevon Donis MD [address] [place] [address] Dr [address] [place] [address] [phone] Health Maintenance Due Date Last Done Comments [...] [address] Medicare A & B [id number] [place] [address] [facility] MEDICAID OF xxxxxxxxx 2018-Presen [phone] [address] Medicaid [place] t 0 [id number] [place] [address] documented as of this encounter Advance Directives Name Relationship Healthcare Agent Communication Relationship Jose Guerrier Child Primary healthcare agent Obdulio Samson [facility] agent (Mobile)
--- OUTSIDE RECORDS SUMMARY | 2020-01-06 02:18 | XMS REPORT | Summary of Care ---
:1945 Author Organization [facility] - [facility] Address [address] [place] [address] Care Team Providers Name Role Phone Katie Henderson MD Primary Care Provider Leah Poon Molder Fitting Sammi Eason Insurance Hmo Reason for Visit Reason Comments Forms Encounter Details Date Type Department Care Team Description 11/10/2019 Telephone [facility] Pediatric and Anne Henderson Forms Adult Primary Care- MD Tineo [address] [place] [address] [address] [place] [address] [place] [address] [phone] Allergies Active Allergy Reactions Severity Noted Date Comments Morphine Hallucinations 06/28/2016 documented as of this encounter (statuses as of 11/11/2019) Medications Medication Sig Dispensed Refills Start Date End Date Status blood sugar Use BID, DX E11.9 200 Strip 3 05/22/2018 Active diagnostic (Brand upon stripIndications: insurance approval) Type 2 diabetes Patient preference mellitus with Contour complication, without long-term current use of insulin collagenase 250 Apply to affected 30 g 1 02/13/2019 Active unit/gram area(s) daily. ointmentIndications : Osteomyelitis of fifth toe of right foot blood sugar Use BID, DX E11.9 100 Strip 11 04/29/2019 Active diagnostic (Brand upon ([employer] insurance approval) MICROFILL) strip Lancets (MICROLET Use BID, DX E11.9 100 [...] (peripheral artery disease), Coronary artery disease involving [place] coronary artery of [place] heart without angina pectoris GLIPIZIDE 10 mg TAKE 2 TABLETS BY 120 tablet 2 09/23/2019 Active tabletIndications: MOUTH TWICE DAILY Type 2 diabetes BEFORE BREAKFAST mellitus with AND DINNER complication JANUVIA 25 mg TAKE 1 TABLET BY 30 tablet 10 09/21/2019 Active tablet MOUTH EVERY DAY PREGABALIN 300 mg TAKE 1 CAPSULE BY 60 capsule 10 09/27/2019 Active capsuleIndications: MOUTH TWICE DAILY Other chronic pain Diclofenac Sodium 1 APPLY 2-4 GRAMS 100 g 10 10/18/2019 Active % gelIndications: TOPICALLY THREE Other chronic pain TIMES A DAY NEEDED FOR PAIN mupirocin 2 % Apply to area(s) 3 30 g 0 11/03/201911/12 Active ointmentIndications (three) times daily : Insect bite of for 10 days. 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 10/17/2017 mellitus Overgrown toenails 10/17/2017 Colon cancer 06/05/2017 Malignant neoplasm of colon, unspecified part of colon 05/06/2017 Overview: Added automatically from request for kinsey arie [id number] Colonic mass 03/14/2017 Overview: Added automatically from request for kinsey arie [id number] 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 S/P hysterectomy 10/29/2016 Vulvar lesion 10/29/2016 Type 2 diabetes mellitus with complication 10/11/2016 Diffuse pain 10/11/2016 Near syncope 06/28/2016 UTI (urinary tract infection) 05/24/2016 Generalized abdominal pain 05/24/2016 documented as of this encounter (statuses as of 11/11/2019) Resolved Problems Problem Noted Date Resolved Date Hematuria 10/29/2016 10/29/2016 documented as of this encounter (statuses as of 11/11/2019) Immunizations Name Administration Dates Next Due Influenza High Dose 02/01/2019 documented as of this encounter Social History Tobacco Use Types Packs/Day Years Used Date Never Smoker Smokeless Tobacco: Never Used Alcohol Use Drinks/Week oz/Week Comments No Sex Assigned at Date Recorded Not on file COVID-19 Exposure Response Date Recorded In the last month, have you been in contact with No / Unsure 11/03/2019 2:18 PM CDT someone who was confirmed or suspected to have Coronavirus / COVID-19? documented as of this encounter Last Filed Vital Signs Not on filedocumented in this encounter Miscellaneous Notes Telephone Encounter - Dori Reynolds RN - 11/11/2019 4:33 PM CDTMiriam with [facility] is at lunch, but manufacturer representative Informed that once paperwork is completed and signed by it will be faxed. elephone Encounter - Karolyn Olmos - 11/10/2019 4:56 PM CDTEmma Candido Guerrier is a 73 year old female [employer] is calling about forms that were sent on 10/27/2019. Please complete and fax back to [phone] signed by Karolyn Olmos at 11/10/2019 5:03 PM CDTdocumented in this encounter Plan of Treatment Date Type Specialty Care Team Description 01/10/2020 Office Visit Internal Medicine Demi Henderson MD [address] [id number] Health Maintenance Due Date Last Done Comments DTaP,Tdap,and Td Vaccines 1964 (1 - Tdap) Zoster Recombinant Vaccine 12/31/1995 (SHINGRIX) (1 of 2) Medicare Wellness Visit 2010 Osteoporosis Screening 2010 Breast Cancer Screening 01/08/2018 01/08/2017 (Declined) (MAMMOGRAM) FOOT EXAM 08/11/2019 08/10/2018, 08/10/2018, 05/26/2017, Additional history exists HgA1C 08/12/2019 02/11/2019, 02/01/2019, 10/15/2018, Additional history exists URINE MICROALBUMIN 08/22/2019 08/21/2018, 04/30/2017 INFLUENZA VACCINE (#1) 2019 02/01/2019 LDL-C 02/12/2020 02/11/2019, 10/15/2018, 08/21/2018, Additional history exists CREATININE (SERUM) 02/21/2020 02/20/2019, 02/12/2019, 02/11/2019, Additional history exists Depression Screening 05/12/2020 05/12/2019 HEPATITIS C (HCV) SCREEN Completed 01/08/2017 PNEUMOCOCCAL VACCINES 65+ Addressed 01/08/2017 (Declined) Overridden with the intention of not completing the t opic EYE EXAM Discontinued documented as of this encounter Results Not on filedocumented in this encounter Insurance Payer Benefit Plan / Subscriber ID Effective Dates Phone Addre ss Type Group MEDICARE MEDICARE PART [id number] 2003-Prese [phone] [address] Medicare A & B nt 2 [id number] [place] [address] [facility] MEDICAID OF [id number] 2018-Presen [phone] Medicaid [place] t 0 [id number] [place] [address] documented as of this encounter Advance Directives Name Relationship Healthcare Agent Communication Relationship Jose Guerrier [facility] Health Care Agent [email or web address] Obdulio Samson [facility] [phone] Agent (Mobile)
--- OUTSIDE RECORDS SUMMARY | 2020-01-06 02:18 | XMS REPORT | Summary of Care ---
:1945 Author Organization [facility] Address [address] [place] [address] Care Team Providers Name Role Phone Katie Henderson MD Primary Care Provider Leah Poon Crna Sammi Eason Insurance Hmo Reason for Visit Reason Comments Rash All over. On her feet and ar ms the worse. Encounter Details Date Type Department Care Team Description 11/03/2019 Urgent Care [facility] Family Marley Gustafson, EMA [address] [address] Suspected 2019 Novel Coronavirus Infecti on (Primary Dx); Medicine - [place] Provider, [facility] Insect bite of forearm, unspecified late rality, initial encounter [address] [place] [address] Allergies Active Allergy Reactions Severity Noted Date Comments Morphine Hallucinations 06/28/2016 documented as of this encounter (statuses as of 11/03/2019) Medications Medication Sig Dispensed Refills Start Date [...] (peripheral artery disease), Coronary artery disease involving [place] coronary artery of [place] heart without angina pectoris GLIPIZIDE 10 mg TAKE 2 TABLETS BY 120 tablet 2 09/23/2019 Active tabletIndications: MOUTH TWICE DAILY Type 2 diabetes BEFORE BREAKFAST mellitus with AND DINNER complication LEIDAUVIA 25 mg TAKE 1 TABLET BY 30 tablet 10 09/21/2019 Active tablet MOUTH EVERY DAY PREGABALIN 300 mg TAKE 1 CAPSULE BY 60 capsule 09/27/2019 Active capsuleIndications: MOUTH TWICE DAILY Other [...] as of this encounter (statuses as of 11/03/2019) Active Problems Problem Noted Date Gastrointestinal hemorrhage with hematemesis 0 Non-seasonal allergic rhinitis due to pollen 0 Non-seasonal allergic rhinitis, unspecified trigger Dyslipidemia 05/12/2019 Coronary artery disease involving [place] coronary brian ry of [place] heart 05/12/2019 without angina pectoris PAD (peripheral [...] Added automatically from request for kinsey sargent [id number] Urine incontinence 10/07/2018 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 10/17/2017 mellitus Overgrown toenails 10/17/2017 Colon cancer 06/05/2017 Malignant neoplasm of colon, unspecified part of colon 05/06/2017 Overview: Added automatically from request for kinsey sargent [id number] Colonic mass 03/14/2017 Overview: Added automatically from request for kinsey sargent [id number] 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 S/P hysterectomy 10/29/2016 Vulvar lesion 10/29/2016 Type 2 diabetes mellitus with complication 10/11/2016 Diffuse pain 10/11/2016 Near syncope 06/28/2016 UTI (urinary tract infection) 05/24/2016 Generalized abdominal pain 05/24/2016 documented as of this encounter (statuses as of 11/03/2019) Resolved Problems Problem Noted Date Resolved Date Hematuria 10/29/2016 10/29/2016 documented as of this encounter (statuses as of 11/03/2019) Immunizations Name Administration Dates Next Due Influenza [...] of this encounter Last Filed Vital Signs Vital Sign Reading Time Taken Comments Blood Pressure 135/84 11/03/2019 2:22 PM CDT Pulse 73 11/03/2019 2:22 PM CDT Temperature 36.5 C (97.7 F) 11/03/2019 2:22 PM CDT Respiratory Rate 18 11/03/2019 2:22 PM CDT Oxygen Saturation 96% 11/03/2019 2:22 PM CDT Inhaled Oxygen Concentration - - Weight 74.8 kg (165 lb) 11/03/2019 2:22 PM CDT Height 152.4 cm (5') 11/03/2019 2:22 PM CDT Body Mass Index 32.22 11/03/2019 2:22 PM CDT documented in this encounter Patient Instructions Patient InstructionsBuffy Kennedy PA-C - 11/03/2019 2:20 PM CDT Patient Education Bedbug Bites Bedbugs are tiny insects, about the size of an apple seed. They are reddish- brown and slightly flattened and oval. They feed on human blood, often at night while people are sleeping. Bedbugs are attracted to the warmth of your body, and also to your breath. Unlike some other parasites, they can live up to a year without eating. They dont have wings and dont jump. But they are fast crawlers. Bedbugs are not dangerous and dont often spread disease. Bite symptoms The symptoms of bedbug bitescan be different for each person. Bites can be found anywhere on your body. But they are more common on skin that is exposed. Look for these symptoms from 1 to several days after the first bite: Itching Red rash, which can start small and get larger Hives, red swollen nixon (welts), or raised red itchy areas (wheals). These may be in spots or cover a large area. Small, firm, flat bumps Blisters Cluster of bites in a line, or in a curved or zigzag row Allergic reaction Skin infection from scratching the bites Where bedbugs hide out Bedbugs can be found in almost any place you spend time, both at home and away from home. This includes hotels, buses, trains, ships, nursing homes, and apartments. Bed bugs can be carried from place to place in the seams and folds of luggage, overnight bags, folded clothes. Bedbugs can be in clean or dirty places. Because of their size and shape, bedbugs can get into smallplaces where you wouldnt think to look. They tend to be found mostly in furniture, furnishings around the home, clothing, and cracks and crevices. Here are some areas where they can be found: Beds and mattresses, especially in the seams Joints of bed frames, or the headboard Sheets and blankets Couches, fabric-covered chairs, and other furniture with fabric Rugs, especially along the edges Luggage or boxes Clothing Behind wall decorations, pictures, mirrors, and smoke alarms, and in electric outlets How to find them Bedbugs are big enough to be seen. But they also may leave some traces: Black spots (feces) on a bed mattress, especially around the seams Blood spots on the sheets Shells they may have shed Home care Bite symptoms often go away on their own in 1 to 2 weeks. To help prevent infection, avoid scratching the bites as much as possible. To relieve itching and swelling, use an asjs-hrr-rqiqdga (OTC) hydrocortisone ointment or cream If you need more relief, put an ice pack on the bites. Use the ice pack for up to 20 minutes at atime. To make an ice pack, put ice cubes in a plastic bag that seals at the top. Wrap the bag in a clean, thin towel or cloth. Never put ice or an ice pack directly on the skin. If you have many bites or severe itching, take an OTC oral antihistamine. Follow the directions on the package. If a bite becomes infected, your healthcare provider can prescribe an antibiotic. This may be a pill you take by mouth. Or it may be a cream you put on your skin. If you were bitten in your home, talk with a licensed pest-control company. Bedbugs don't live onyou. They live in cracks in your house. The company can inspect your home and help youget rid of the bugs safely. Follow-up care Follow up with your healthcare provider, or as advised. When to get medical advice Call your healthcare provider right awayif any of these occur: Fever of 100.4F (38C) or higher, or as directed by your healthcare provider Signs of infection in the bites, such as swelling and pain that gets worse, warmth in the area, or drainage from the bites Signs of allergic reaction, such as hives or a spreading rash Call 911 Call 911 if any of the following occur: Throat itching or swelling Wheezing [employer] last reviewed this educational content on 09/28/201819999392-7677 [employer]. [address] [place] [address]. All rights reserved. This information is not intended as a substitute for professional medical care. Always follow your healthcare professional's instructions. documented in this encounter Progress Notes Buffy Kennedy PA-C - 11/03/2019 2:20 PM CDT Cc: Chief Complaint Patient presents with Rash All over. On her feet and arms the worse. Leydi Guerrier is a 73 year old female. HPI Patient here with nephew with concerns regarding a rash on bilateral arms. They do not know for how long. There are excoriations on her arms from scratching. Denies pain but does have itching. Denies fever, chills, discharge. Per nephew, they have not noticed any bugs And have washed everything. Allergies Leydi is allergic to morphine. Medications Outpatient Medications Prior to Visit Medication Sig Dispense Refill Diclofenac Sodium 1 % gel APPLY 2-4 GRAMS TOPICALLY THREE TIMES A DAY NEEDED FOR PAIN 100 g 10 PREGABALIN 300 mg capsule TAKE 1 CAPSULE BY MOUTH TWICE DAILY 60 capsule 10 GLIPIZIDE 10 mg tablet TAKE 2 TABLETS BY MOUTH TWICE DAILY BEFORE BREAKFAST AND DINNER 120 tablet 2 XARELTO 20 mg tablet TAKE 1 TABLET BY MOUTH DAILY 30 tablet 2 JANUVIA 25 mg tablet TAKE 1 TABLET BY MOUTH EVERY DAY 30 tablet 10 LISINOPRIL 10 mg tablet TAKE 1 TABLET BY MOUTH EVERY DAY 90 tablet 0 baclofen 5 mg Tab Take 2.5 mg by mouth at bedtime. 30 tablet 3 repaglinide 0.5 mg tablet TAKE (1) TABLET BY MOUTH BEFORE LUNCH AND DINNER, IF SUGARS 2 HOURS AFTER MEAL ARE STILL >200 THEN 2 TABLETS BEFORE LUNCH AND DINNER 360 tablet 1 CETIRIZINE 10 mg tablet TAKE 1 TABLET BY MOUTH EVERY DAY 90 tablet 1 lancets (BD ULTRA FINE LANCETS) 33 gauge Misc Check sugars BID times a day. Dx Code E11.9. Brandper insurance. 100 Each 11 ciprofloxacin HCl 500 mg tablet Take 1 tablet by mouth every 12 (twelve) hours. Take Ciprofloxacin 500mg PO BID x 8 weeks for Osteomyelitis (Bone Infection). Take with a probiotic 1 Tab daily 112 tablet 0 Blood-Glucose Meter (BLOOD GLUCOSE MONITORING) Kit Check glucose level twice daily per code E11.9. 1 Each 0 blood sugar diagnostic (ASCENSIA MICROFILL) strip Use BID, DX E11.9 (Brand upon insurance approval) 100 Strip 11 Lancets (MICROLET LANCET) Misc Use BID, DX E11.9 (Brand upon insurance approval) 100 Each 11 collagenase 250 unit/gram ointment Apply to affected area(s) daily. 30 g 1 blood sugar diagnostic strip Use BID, DX E11.9 (Brand upon insurance approval) Patient preference Contour 200 Strip 3 No facility-administered medications prior to visit. 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 10/11/2016 Urinary incontinence Vulvar intraepithelial neoplasia (CHASE) grade 3 01/31/2017 Past Surgical History: Procedure Laterality Date COLONOSCOPY N/A 03/20/2017 Surgeon: Ashlee Lundy MD; Location: [facility] OR Location COLONOSCOPY N/A 11/20/2018 Surgeon: Felicita Pineda MD; Location: [facility] OR Location ESOPHAGOGASTRODUODENOSCOPY N/A 11/20/2018 Surgeon: Felicita Pineda MD; Location: [facility] OR Location HYSTERECTOMY LAPAROSCOPIC ROBOTIC ASSISTED COLECTOMY 06/04/2017 LAPAROSCOPIC ROBOTIC ASSISTED HEMICOLECTOMY N/A 06/04/2017 Surgeon: Ashlee Lundy MD; Location: [facility] OR Julián REMOVAL OF SINGLE TOE,EACH STENT VULVAR BIOPSY (SHX) N/A 06/04/2017 Surgeon: Anoop De Luna; Location: [facility] OR [facility] Social History Socioeconomic History Marital status: Spouse name: Not on file Number of children: Not on file Years of education: Not on file Highest education level: Not on file Occupational History Not on file Social Needs Financial resource strain: Not on file Food insecurity Worry: Not on file Inability: Not on file Transportation needs Medical: Not on file Non-medical: Not on file Tobacco Use Smoking status: Never Smoker Smokeless tobacco: Never Used Substance and Sexual Activity Alcohol use: No Drug use: No Sexual activity: Never Lifestyle Physical activity Days per week: Not on file Minutes per session: Not on file Stress: Not on file Relationships Social connections Talks on phone: Not on file Gets together: Not on file Attends hinduism service: Not on file Active member of club or organization: Not on file Attends meetings of clubs or organizations: Not on file Relationship status: Not on file Intimate partner violence Fear of current or ex partner: Not on file Emotionally abused: Not on file Physically abused: Not on file Forced sexual activity: Not on file Other Topics Concern Not on file Social History Narrative No domestic abuse or violence.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 HENT: Negative for ear pain and sore throat. Respiratory: Negative for cough and shortness of breath. Cardiovascular: Negative for chest pain and palpitations. Gastrointestinal: Negative. Genitourinary: Negative for dysuria and frequency. Musculoskeletal: Negative for myalgias. Skin: Positive for rash. Neurological: Negative for headaches. Psychiatric/Behavioral: The patient is not nervous/anxious. All other systems reviewed and are negative. Vital Signs BP 135/84 | Pulse 73 | Temp 36.5 C (97.7 F) | Resp 18 | Ht 5' (1.524 m) | Wt 165 lb (74.8 kg) | SpO2 96% | BMI 32.22 kg/m Physical Exam Vitals signs and nursing note reviewed. Constitutional: Appearance: She is well-developed. HENT: Right Ear: External ear normal. Left Ear: External ear normal. Nose: Nose normal. Mouth/Throat: Pharynx: No oropharyngeal exudate. Eyes: Pupils: Pupils are equal, round, and reactive to light. Neck: Musculoskeletal: Normal range of motion. Cardiovascular: Rate and Rhythm: Normal rate and regular rhythm. Pulmonary: Effort: Pulmonary effort is normal. Breath sounds: Normal breath sounds. Abdominal: Palpations: Abdomen is soft. Tenderness: There is no abdominal tenderness. Musculoskeletal: Normal range of motion. Skin: Comments: Multiple small pustules on bilateral arms with superficial linear excoriations. No streaking, no discharge, no redness, no swelling Neurological: Mental Status: She is alert and oriented to person, place, and time. Psychiatric: Behavior: Behavior normal. Thought Content: Thought content normal. Judgment: Judgment normal. Assessment/Plan 1. Suspected 2019 Novel Coronavirus Infection - COVID-19 (PCR MOLECULAR TESTING) 2. Insect bite of forearm, unspecified laterality, initial encounter - mupirocin 2 % ointment; Apply to area(s) 3 (three) times daily for 10 days. Dispense: 30 g; Refill: 0 ER warnings and home care instructions given Patient verbalizes understanding and agreement with plan of care. Return if symptoms worsen or fail to improve. You visited a COVID 19 clinic today and were tested for COVID 19. We are still awaiting results. At this time, we recommend that you remain in self quarantine along with those in your immediate household until the results are back. This process is taking approximately 72 hours. We will contact you with the results and instructions upon their receipt. Until you receive your results, please follow the advice you received in your AVS and the CDC document on what to do if you are sick with COVID. Please stay inside and preferably in one room. Avoid close contact with your family and neighbors to prevent further spread. Wear a face mask if in the presence of someone else. Do not share household items such as dishes and toiletries. Be sure to clean your space thoroughly and wash your hands frequently. You should self-quarantine until you no longer have a fever without taking fever reducing medications for 3 days and are at least 10 days from your first symptoms. Wear a mask in public subsequently until it has been greater than 14 days from your first symptom. Most people feel better within 7-14 days. If your symptoms are worsening and you feel very short of breath and you have difficulty performing basic tasks such as walking to the bathroom or preparing food, we would like you to contact the [facility] at [phone] or toll free to talk with a nurse or, if your symptoms are urgent, go to the nearest Emergency Room. Please wear a face mask and call prior to going to a healthcare facility. Shayy Burns MA - 11/03/2019 2:20 PM CDT Leydi Guerrier is a 73 year old female Chief Complaint Patient presents with Rash All over. On her feet and arms the worse. Other Right leg hurts and gets week... Been happening for awhile. UTI Pt had a surgery a year and a half ago. Been getting UTIs on and off since then. Pt states it is hurting to pee and abd pain. Vitals: 11/03/19 1422 BP: 135/84 Pulse: 73 Resp: 18 Temp: 36.5 C (97.7 F) SpO2: 96% Weight: 165 lb (74.8 kg) Height: 5' (1.524 m) [id number] - [address] All Vitals taken, allergies and all medications reviewed, fall risk assessed. Pain level 8. Shayy Silverman MA 11/03/2019 2:26 PM Patient educated on plan of care for visit, swabbing technique, risks and benefits of test and length of time to receive results. Verbal consent obtained to perform test. CDC Fact Sheet for Patients nCoV Diagnostic Panel dated 06/13/2019 provided. documented in this encounter Plan of Treatment Name Type Priority Associated Diagnoses Order S adrian COVID-19 (PCR MOLECULAR LAB Routine Suspected 2018 No adrian Ordered: 11/03/2019 TESTING) Coronavirus Infection Health Maintenance Due Date Last Done Comments [...] the intention of not completing the t opi EYE EXAM Discontinued documented as of this encounter Results Not on filedocumented in this encounter Visit Diagnoses Diagnosis Suspected 2019 Novel Coronavirus Infecti on - Primary Insect bite of forearm, unspecified late rality, initial encounter documented in this encounter Additional Health Concerns Infection Onset Date Last Indicated Resolved Time COVID-19 Rule Out 11/03/2019 11/03/2019 documented as of this encounter Insurance Payer Benefit Plan / Subscriber ID Effective Dates Phone Addre ss Type Group MEDICARE MEDICARE PART [id number] 2003-Prese [phone] Medicare A & B nt 2 [id number] [place] [address] [facility] MEDICAID OF [id number] 2018-Presen [phone] [address] Medicaid [place] 0 [id number] [place] [address] (Home) [place] [address] documented as of this encounter Advance Directives Name Relationship Healthcare Agent Communication Relationship Jose Guerrier Child Health Care Agent Obdulio Rey Nephliza [facility] Agent (Mobile) "
--- OUTSIDE RECORDS SUMMARY | 2020-01-06 02:19 | XMS REPORT | Summary of Care ---
:1945 Author Organization [facility] Address [address] [place] [address] Care Team Providers Name Role Phone Katie Henderson MD Primary Care Provider Leah Poon Heat Reader Sammi Eason Insurance Hmo Reason for Visit Reason Comments Notification confirming fax received Encounter Details Date Type Department Care Team Description 11/04/2019 Telephone [facility] Family Darlene Henderson otification Medicine - Rivka Wilson MD (confirming fax 136 [facility] [address] received) Drive [address] [address] [phone] Allergies Active Allergy Reactions Severity Noted Date [...] (peripheral artery disease), Coronary artery disease involving [place] coronary artery of [place] heart without angina pectoris GLIPIZIDE 10 mg [...] trigger Dyslipidemia 05/12/2019 Coronary artery disease involving [place] coronary brian ry of [place] heart 05/12/2019 without angina pectoris PAD (peripheral [...] Added automatically from request for kinsey arie [id number] Urine incontinence 10/07/2018 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 10/17/2017 mellitus Overgrown toenails 10/17/2017 Colon cancer 06/05/2017 Malignant neoplasm of colon, unspecified part of colon 05/06/2017 Overview: Added automatically from request for kinsey arie [id number] Colonic mass 03/14/2017 Overview: Added automatically from request for kinsey arie [id number] Vulvar intraepithelial neoplasia (CHASE) grade 3 017 [...] Encounter - Dori Reynolds RN - 11/11/2019 4:35 PM CDTOnce paperwork is complete per it will be faxed back. elephone Encounter - Kristina Ward - 11/09/2019 9:42 AM CDTIDA from [employer] is calling and is requesting the patient latest chart notes to befaxed. elephone Encounter - Roberto Ludwig - 11/09/2019 6:35 AM CDTEmma Candido Guerrier is a 73 year old female Please review and close encounter Thank you Telephone Encounter - Jenny Byers - 11/05/2019 3:41 PM CDTIDA with [employer] is checking the below phone encounter. elephone Encounter - Mitali Garcia LVN - 11/04/2019 4:53 PM CDTrerouting elephone Encounter - Roberto Ludwig - 11/04/2019 4:36 PM CDTEmma Candido Guerrier is a 73 year old female Chioma is calling from [employer] requesting confirmation fx has been received for brace Chioma can be reached at [phone] Thank you documented in this encounter Plan of Treatment Date Type Specialty Care Team Description 01/10/2020 Office Visit Internal Medicine Demi Henderson MD [address] [address] [phone] Health Maintenance Due Date Last Done Comments [...] Results Not on filedocumented in this encounter Additional Health Concerns Infection Onset Date Last Indicated Resolved Time COVID-19 Rule Out 11/03/2019 11/03/2019 11/04/2019 4: 17 PM CDT documented as of this encounter Insurance Payer Benefit Plan / Subscriber ID Effective Dates Phone Addre ss Type Group MEDICARE MEDICARE PART [id number] 2003-Prese [phone] [address] Medicare A & B 2 [id number] [place] [id number] [facility] MEDICAID OF [id number] 2018-Presdipika [phone] [address] Medicaid [facility] 0 [id number] [place] [address] documented as of this encounter Advance Directives Name Relationship Healthcare Agent Communication Relationship Jose Guerrier [facility] Health Care Agent [email or web address] Obdulio Samson [facility] Agent (Mobile)
--- OUTSIDE RECORDS SUMMARY | 2020-01-06 02:19 | XMS REPORT | Summary of Care ---
:1945 Author Organization [facility] - [facility] Address [address] [place] [address] Care Team Providers Name Role Phone Katie Henderson MD Primary Care Provider Leah Poon Technician Biological Health Sammi Eason Insurance Hmo Reason for Visit Reason Comments Referral/consult Encounter Details Date Type Department Care Team Description 11/04/[address] [facility] Pediatric Matilde Henderson, Referral/consult and Adult Primary Care- MD Tineo [address] [place] [address] [address] [address] [address] [place] [address] [place] [address] [phone] Allergies Active Allergy Reactions Severity Noted Date Comments Morphine Hallucinations 06/28/2016 documented as of this encounter (statuses as of 11/23/2019) Medications Medication Sig Dispensed Refills Start Date [...] (peripheral artery disease), Coronary artery disease involving sleetm[place] coronary artery of sleetmute heart without angina pectoris GLIPIZIDE 10 mg [...] as of this encounter (statuses as of 11/23/2019) Active Problems Problem Noted Date Gastrointestinal hemorrhage with hematemesis 0 Non-seasonal allergic rhinitis due to pollen 0 Non-seasonal allergic rhinitis, unspecified trigger Dyslipidemia 05/12/2019 Coronary artery disease involving sleetm[place] coronary brian ry of sleetm[place] heart 05/12/2019 without angina pectoris PAD (peripheral [...] Added automatically from request for kinsey arie [id number] Urine incontinence 10/07/2018 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 10/17/2017 mellitus Overgrown toenails 10/17/2017 Colon cancer 06/05/2017 Malignant neoplasm of colon, unspecified part of colon 05/06/2017 Overview: Added automatically from request for kinesy arie [id number] Colonic mass 03/14/2017 Overview: Added automatically from request for kinsey arie [id number] 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 S/P hysterectomy 10/29/2016 Vulvar lesion 10/29/2016 Type 2 diabetes mellitus with complication 10/11/2016 Diffuse pain 10/11/2016 Near syncope 06/28/2016 UTI (urinary tract infection) 05/24/2016 Generalized abdominal pain 05/24/2016 documented as of this encounter (statuses as of 11/23/2019) Resolved Problems Problem Noted Date Resolved Date Hematuria 10/29/2016 10/29/2016 documented as of this encounter (statuses as of 11/23/2019) Immunizations Name Administration Dates Next Due Influenza [...] this encounter Miscellaneous Notes Telephone Encounter - Darlene Henderson MD - 11/18/2019 6:48 PM CDTPlease fax referral if not already done. elephone Encounter - Myriam Resendez - 11/04/2019 3:25 PM CDTPlease assist patient elephone Encounter - Mel Courtney LVN - 11/04/2019 2:47 PM CDTReferral was placed on 11/02/19. Will route to the PSS pool for further assistance. Mel Courtney LVN 11/04/2019 2:48 PM elephone Encounter - Destiny Allen - 11/04/2019 12:16 PM CDTEmma Candido Guerrier is a 73 year old female Please close encounter Thanks Patient son calling said [facility] not receive patient referral for scheduling please faxreferral order to . ASAP documented in this encounter Plan of Treatment Date Type Specialty Care Team Description 01/10/2020 Office Visit Internal Medicine Demi Henderson MD [address] [place] [address] 15 [phone] Health Maintenance Due Date Last Done Comments [...] Addre ss Type Group MEDICARE MEDICARE PART [id number] 2003-Prese [phone] [address] Medicare A & B nt 2 [id number] RADHA RAMOS [id number] [facility] MEDICAID OF [id number] 2018-Presdipika [phone] [address] Medicaid [place] t 0 [id number] [place] [address] documented as of this encounter Advance Directives Name Relationship Healthcare Agent Communication Relationship Jose Guerrier Child Health Care Agent [email or web address] Obdulio Samson [facility] [phone] Agent (Mobile)
--- OUTSIDE RECORDS SUMMARY | 2020-01-06 02:19 | XMS REPORT | Summary of Care ---
:1945 Author Organization [facility] Address [address] [place] [address] Care Team Providers Name Role Phone Katie Henderson MD Primary Care Provider Leah Poon Hay Baler Sammi Eason Insurance Hmo Reason for Visit Reason Comments Forms Encounter Details Date Type Department Care Team Description 11/15/2019 Telephone [facility] and Anne Henderson Forms Adult Primary Care- MD Tineo [address] [place] [address] [address] [place] [address] [place] [address] [phone] Allergies Active Allergy Reactions Severity Noted Date Comments Morphine Hallucinations 06/28/2016 documented as of this encounter (statuses as of 11/15/2019) Medications Medication Sig Dispensed Refills Start Date [...] (peripheral artery disease), Coronary artery disease involving ute coronary artery of ute heart without angina pectoris GLIPIZIDE 10 mg [...] as of this encounter (statuses as of 11/15/2019) Active Problems Problem Noted Date Gastrointestinal hemorrhage with hematemesis 0 Non-seasonal allergic rhinitis due to pollen 0 Non-seasonal allergic rhinitis, unspecified trigger Dyslipidemia 05/12/2019 Coronary artery disease involving ute coronary brian ry of ute heart 05/12/2019 without angina pectoris PAD (peripheral [...] Added automatically from request for kinsey arie [id number] Urine incontinence 10/07/2018 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 10/17/2017 mellitus Overgrown toenails 10/17/2017 Colon cancer 06/05/2017 Malignant neoplasm of colon, unspecified part of colon 05/06/2017 Overview: Added automatically from request for kinsey arie [id number] Colonic mass 03/14/2017 Overview: Added automatically from request for kinsey arie [id number] 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 S/P hysterectomy 10/29/2016 Vulvar lesion 10/29/2016 Type 2 diabetes mellitus with complication 10/11/2016 Diffuse pain 10/11/2016 Near syncope 06/28/2016 UTI (urinary tract infection) 05/24/2016 Generalized abdominal pain 05/24/2016 documented as of this encounter (statuses as of 11/15/2019) Resolved Problems Problem Noted Date Resolved Date Hematuria 10/29/2016 10/29/2016 documented as of this encounter (statuses as of 11/15/2019) Immunizations Name Administration Dates Next Due Influenza [...] Telephone Encounter - Dori Reynolds RN - 11/15/2019 1:36 PM CDTChart notes to be faxed. elephone Encounter - Ave Bryson - 11/15/2019 11:17 AM CDTMarie from [employer] is calling to check the status of the forms that were faxed. Doreen is stating that they are needing chart notes along with the medical records, and is requesting a call back. documented in this encounter Plan of Treatment Date Type Specialty Care Team Description 01/10/2020 Office Visit Internal Medicine Demi Henderson MD [address] [place] [address] 15 [phone] Health Maintenance Due Date Last Done Comments [...] Addre ss Type Group MEDICARE MEDICARE PART [id number] 2003-Prese [phone] [address] Medicare A & B nt 2 [id number] [place] [address] [facility] MEDICAID OF [id number] 2018-Presdipika [id number] [address] Medicaid [place] t 0 [id number] [place] [address] documented as of this encounter Advance Directives Name Relationship Healthcare Agent Communication Relationship Jose Guerrier [facility] Health Care Agent Obdulio Samson [facility] Agent (Mobile)
--- OUTSIDE RECORDS SUMMARY | 2020-01-06 02:19 | XMS REPORT | Summary of Care ---
:1945 Author Organization [facility] - [facility] Address [address] [place] [address] Care Team Providers Name Role Phone Katie Henderson MD Primary Care Provider Leah Poon Geropsychologist Sammi Eason Insurance Hmo Reason for Referral (Routine) Status Reason Specialty Diagnoses / Referred By Referred To Procedures Contact Contact Authorized Wait Time for Neurology Diagnoses Memory problem Jaron Henderson, Patient Request Procedures CONSULT/REFERRAL NEUROLOGY Darlene Wilson MD Referring/Pcp [address] [place] [address] Prov Not I n [facility] [address] [place] [address] Reason for Visit Reason Comments Orders Encounter Details Date Type Department Care Team Description 11/02/2019 Telephone [facility] and Anne Henderson Orders Adult Primary Care- [place] [address] [place] [address] 146 [facility], [facility] [address] [place] [address] [address] [place] [address] [phone] Allergies Active Allergy Reactions Severity Noted Date [...] (peripheral artery disease), Coronary artery disease involving [place] coronary artery of [place] heart without angina pectoris GLIPIZIDE 10 mg [...] trigger Dyslipidemia 05/12/2019 Coronary artery disease involving [place] coronary brian ry of [place] heart 05/12/2019 without angina pectoris PAD (peripheral [...] Added automatically from request for kinsey sargent [id number] Urine incontinence 10/07/2018 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 Patient did not have transportation to come in today, will see urgent care tomorrow for rash. Has fallen 1-2 times recently. Has not been seeing a environmental protection forester. Needs to be seen by us for refills on at least lyrica. Concernedto keep her on xarelto if falls, and need to find out if needs to be on xarelto jail. May need to refer to cardiology. Found out [facility] clinic. Will refer to them, he reports [facility] next appointment is in December. To [facility] staff, please fax referral to [facility]. documented in this encounter Plan of Treatment Date Type Specialty Care Team Description 01/10/2020 Office Visit Internal Medicine Demi Henderson MD [address] [place] [address] 15 [phone] Health Maintenance Due Date Last Done Comments [...] filedocumented in this encounter Visit Diagnoses Diagnosis Memory problem - Primary Memory loss documented in this encounter Additional Health Concerns Infection Onset Date Last Indicated Resolved Time COVID-19 Rule Out 11/03/2019 11/03/2019 11/04/2019 4: 17 PM CDT documented as of this encounter Insurance Payer Benefit Plan / Subscriber ID Effective Dates Phone Addre ss Type Group MEDICARE MEDICARE PART [id number] 2003-Presbreanna [phone] [address] Medicare A & B nt 2 [id number] DANIELRADHA [id number] [facility] MEDICAID OF [id number] 2018-Becky [phone] [address] Medicaid [place] t 0 [id number] [place] [address] documented as of this encounter Advance Directives Name Relationship Healthcare Agent Communication Relationship Jose Guerrier Child Health Care Agent [email or web address] Obdulio Samson [facility] Agent (Mobile)
--- OUTSIDE RECORDS SUMMARY | 2020-01-06 02:20 | XMS REPORT | Summary of Care ---
:1945 Author Organization [facility] - [facility] Address [address] [place] [address] Care Team Providers Name Role Phone Katie Henderson MD Primary Care Provider Leah Poon Concrete Tile Machine Operator Sammi Eason Insurance Hmo Reason for Visit Reason Comments Refill Request Encounter Details Date Type Department Care Team Description 12/16/2019 Refill [facility] Pediatric and Kevon Aguilar MD Refill Request Adult Primary Care- [address] [facility] [address] Tineo [address] [place] [address] [address] [place] [address] [phone] Allergies Active Allergy Reactions Severity Noted Date Comments Morphine Hallucinations 06/28/2016 documented as of this encounter (statuses as of 12/16/2019) Medications Medication Sig Dispensed Refills Start End Date Status Date blood sugar Use BID, DX E11.9 200 Strip 3 Active diagnostic (Brand upon 9 stripIndications: insurance Type 2 diabetes approval) Patient mellitus with preference complication, Contour without long-term current use of insulin collagenase 250 Apply to 30 g 1 Acti ve unit/gram affected area(s) 9 ointmentIndicatio daily. ns: Osteomyelitis of fifth toe of right foot [...] Active 500 mg mouth every 12 0 tabletIndications (twelve) hours. : Vaginal Take bleeding, Ciprofloxacin Osteomyelitis of 500mg PO BID x 8 fifth toe of weeks for right foot Osteomyelitis (Bone Infection). Take with a probiotic 1 Tab daily lancets (BD ULTRA Check sugars BID 100 Each Active FINE LANCETS) 33 times a day. Dx 0 gauge Code E11.9. Brand MiscIndications: per insurance. Type 2 diabetes mellitus with complication, without long-term current use of insulin CETIRIZINE 10 mg TAKE 1 TABLET BY 90 tablet 1 Active tabletIndications MOUTH EVERY DAY 0 : Non-seasonal allergic rhinitis, unspecified trigger repaglinide 0.5 TAKE (1) TABLET 360 tablet 1 Active mg BY MOUTH BEFORE 0 tabletIndications LUNCH AND DINNER, : Type 2 diabetes IF SUGARS 2 HOURS mellitus with AFTER MEAL ARE complication, STILL >200 THEN 2 without long-term TABLETS BEFORE current use of LUNCH AND DINNER insulin baclofen 5 mg Take 2.5 mg by 30 tablet 3 A ctive TabIndications: mouth at bedtime. 0 Other chronic pain XARELTO 20 mg TAKE 1 TABLET BY 30 tablet 2 Active tabletIndications MOUTH DAILY 0 : PAD (peripheral artery disease), Coronary artery disease involving habematolel coronary artery of habematolel heart without angina pectoris GLIPIZIDE 10 mg TAKE 2 TABLETS BY 120 tablet 2 Active tabletIndications MOUTH TWICE DAILY 0 : Type 2 diabetes BEFORE BREAKFAST mellitus with AND DINNER complication JANUVIA 25 mg TAKE 1 TABLET BY 30 tablet 10 Active tablet MOUTH EVERY DAY 0 PREGABALIN 300 mg TAKE 1 CAPSULE BY 60 capsule 10 Active capsuleIndication MOUTH TWICE DAILY 0 s: Other chronic pain Diclofenac Sodium APPLY 2-4 GRAMS 100 g 10 Active 1 % TOPICALLY THREE 0 gelIndications: TIMES A DAY Other chronic NEEDED FOR PAIN pain LISINOPRIL 10 mg TAKE 1 TABLET BY 30 tablet 0 Active tabletIndications MOUTH DAILY 0 : Essential hypertension LISINOPRIL 10 mg TAKE 1 TABLET BY 90 tablet 0 Discontinued tabletIndications MOUTH EVERY DAY 0 (Reorder) : Essential hypertension documented as of this encounter (statuses as of 12/16/2019) Active Problems Problem Noted Date Gastrointestinal hemorrhage with hematemesis 0 Non-seasonal allergic rhinitis due to pollen 0 Non-seasonal allergic rhinitis, unspecified trigger Dyslipidemia 05/12/2019 Coronary artery disease involving habematolel coronary brian ry of habematolel heart 05/12/2019 without angina pectoris PAD (peripheral [...] Added automatically from request for kinsey sargent [id number] Urine incontinence 10/07/2018 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 10/17/2017 mellitus Overgrown toenails 10/17/2017 Colon cancer 06/05/2017 Malignant neoplasm of colon, unspecified part of colon 05/06/2017 Overview: Added automatically from request for kinsey sargent [id number] Colonic mass 03/14/2017 Overview: Added automatically from request for kinsey sargent [id number] 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 S/P hysterectomy 10/29/2016 Vulvar lesion 10/29/2016 Type 2 diabetes mellitus with complication 10/11/2016 Diffuse pain 10/11/2016 Near syncope 06/28/2016 UTI (urinary tract infection) 05/24/2016 Generalized abdominal pain 05/24/2016 documented as of this encounter (statuses as of 12/16/2019) Resolved Problems Problem Noted Date Resolved Date Hematuria 10/29/2016 10/29/2016 documented as of this encounter (statuses as of 12/16/2019) Immunizations Name Administration Dates Next Due Influenza High Dose 02/01/2019 documented as of this encounter Social History Tobacco Use Types Packs/Day Years Used Date Never Smoker Smokeless Tobacco: Never Used Alcohol Use Drinks/Week oz/Week Comments No Sex Assigned at Date Recorded Not on file documented as of this encounter Last Filed Vital Signs Not on filedocumented in this encounter Plan of Treatment Date Type Specialty Care Team Description 01/10/2020 Office Visit Internal Medicine Demi Henderson MD [address] [place] [address] 15 [phone] Health Maintenance Due Date Last Done Comments [...] Addre ss Type Group MEDICARE MEDICARE PART [id number] 2003-Presbreanna [phone] [address] Medicare A & B nt 2 [id number] RADHA RAMOS [id number] [facility] MEDICAID OF [id number] 2018-Becky [phone] [address] Medicaid [place] t 0 [id number] [place] [address] documented as of this encounter Advance Directives Name Relationship Healthcare Agent Communication Relationship Jose Guerrier [facility] Health Care Agent [email or web address] Obdulio Samson [facility] [phone] Agent (Mobile)
--- OUTSIDE RECORDS SUMMARY | 2020-01-06 02:20 | XMS REPORT | Summary of Care ---
:1945 Author Organization [facility] - [facility] Address [address] [place] [address] Care Team Providers Name Role Phone Katie Henderson MD Primary Care Provider Leah Poon Psychometrist Sammi Eason Insurance Hmo Reason for Visit Reason Comments Forms Encounter Details Date Type Department Care Team Description 12/13/2019 Telephone [facility] Pediatric and Anne Henderson Forms Adult Primary Care- MD Tineo [address] [place] [address] [address] [place] [address] [place] [address] [phone] Allergies Active Allergy Reactions Severity Noted Date Comments Morphine Hallucinations 06/28/2016 documented as of this encounter (statuses as of 12/15/2019) Medications Medication Sig Dispensed Refills Start Date [...] (peripheral artery disease), Coronary artery disease involving upper mattaponi coronary artery of upper [place] heart without angina pectoris GLIPIZIDE 10 mg [...] as of this encounter (statuses as of 12/15/2019) Active Problems Problem Noted Date Gastrointestinal hemorrhage with hematemesis 0 Non-seasonal allergic rhinitis due to pollen 0 Non-seasonal allergic rhinitis, unspecified trigger Dyslipidemia 05/12/2019 Coronary artery disease involving upper [place] coronary brian ry of upper [place] heart 05/12/2019 without angina pectoris PAD (peripheral [...] Added automatically from request for kinsey arie [id number] Urine incontinence 10/07/2018 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 10/17/2017 mellitus Overgrown toenails 10/17/2017 Colon cancer 06/05/2017 Malignant neoplasm of colon, unspecified part of colon 05/06/2017 Overview: Added automatically from request for kinsey arie [id number] Colonic mass 03/14/2017 Overview: Added automatically from request for kinsey arie [id number] 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 S/P hysterectomy 10/29/2016 Vulvar lesion 10/29/2016 Type 2 diabetes mellitus with complication 10/11/2016 Diffuse pain 10/11/2016 Near syncope 06/28/2016 UTI (urinary tract infection) 05/24/2016 Generalized abdominal pain 05/24/2016 documented as of this encounter (statuses as of 12/15/2019) Resolved Problems Problem Noted Date Resolved Date Hematuria 10/29/2016 10/29/2016 documented as of this encounter (statuses as of 12/15/2019) Immunizations Name Administration Dates Next Due Influenza [...] this encounter Miscellaneous Notes Telephone Encounter - Jenny Byers - 12/15/2019 10:36 AM CDTJuan with [employer] is following below phone encounter. elephone Encounter - Ave Bryson - 12/13/2019 4:04 PM CDTJuan from [employer] is calling back regarding the below encounter. elephone Encounter - Kristina Ward - 12/13/2019 10:05 AM CDTJugrace is calling from [employer] and is requesting an update on forms faxed on 11/14, matt stated they received chart notes but no complete forms, please call Matt back at [phone] signed by Kristina Ward at 12/13/2019 10:06 AM CDTdocumented in this encounter Plan of Treatment Date Type Specialty Care Team Description 01/10/2020 Office Visit Internal Medicine Demi Henderson MD [address] [place] [address] 15 [phone] Health Maintenance Due Date Last Done Comments [...] Addre ss Type Group MEDICARE MEDICARE PART [id number] 2003-Prese [phone] [address] Medicare A & B 2 [id number] [place] [address] [facility] MEDICAID OF [id number] 2018-Presen [phone] [address] Medicaid [place] t 0 [id number] [place] [address] documented as of this encounter Advance Directives Name Relationship Healthcare Agent Communication Relationship Jose Guerrier [facility] Health Care Agent Obdulio Samson [facility] Agent (Mobile)
--- OUTSIDE RECORDS SUMMARY | 2020-01-06 02:21 | XMS REPORT | Summary of Care ---
:1945 Author Organization [facility] - [facility] Address [address] [place] [address] Care Team Providers Name Role Phone Katie Henderson MD Primary Care Provider Leah Poon [employer] Back Feeder Sammi Eason Insurance Hmo Reason for Visit Reason Comments Forms Encounter Details Date Type Department Care Team Description 12/16/[address] [facility] Pediatric and Anne Henderson Forms Adult Primary Care- MD Tineo [address] [place] [address] [address] [place] [address] [place] [address] [phone] Allergies Active Allergy Reactions Severity Noted Date Comments Morphine Hallucinations 06/28/2016 documented as of this encounter (statuses as of 12/20/2019) Medications Medication Sig Dispensed Refills Start Date [...] EVERY DAY Non-seasonal allergic rhinitis, unspecified trigger baclofen 5 mg Take 2.5 mg by 30 tablet 3 07/23/2019 Active TabIndications: mouth at bedtime. Other chronic pain XARELTO 20 mg TAKE 1 TABLET BY 30 tablet 2 09/23/2019 Active tabletIndications: MOUTH DAILY PAD (peripheral artery disease), Coronary artery disease involving [place] coronary artery of [place] heart without angina pectoris JANUVIA 25 mg tablet TAKE 1 TABLET [...] as of this encounter (statuses as of 12/20/2019) Active Problems Problem Noted Date Gastrointestinal hemorrhage with hematemesis 0 Non-seasonal allergic rhinitis due to pollen 0 Non-seasonal allergic rhinitis, unspecified trigger Dyslipidemia 05/12/2019 Coronary artery disease involving [place] coronary brian ry of [place] heart 05/12/2019 without angina pectoris PAD (peripheral [...] Added automatically from request for kinsey arie [id number] Urine incontinence 10/07/2018 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 10/17/2017 mellitus Overgrown toenails 10/17/2017 Colon cancer 06/05/2017 Malignant neoplasm of colon, unspecified part of colon 05/06/2017 Overview: Added automatically from request for kinsey arie [id number] Colonic mass 03/14/2017 Overview: Added automatically from request for kinsey arie [id number] 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 S/P hysterectomy 10/29/2016 Vulvar lesion 10/29/2016 Type 2 diabetes mellitus with complication 10/11/2016 Diffuse pain 10/11/2016 Near syncope 06/28/2016 UTI (urinary tract infection) 05/24/2016 Generalized abdominal pain 05/24/2016 documented as of this encounter (statuses as of 12/20/2019) Resolved Problems Problem Noted Date Resolved Date Hematuria 10/29/2016 10/29/2016 documented as of this encounter (statuses as of 12/20/2019) Immunizations Name Administration Dates Next Due Influenza [...] this encounter Miscellaneous Notes Telephone Encounter - Vandana Sexton - 12/20/2019 10:55 AM CDTSpoke to Matt, Asked him to resend paperwork for DME. Vandana Sexton 12/20/2019 10:55 AM elephone Encounter - Kristina Ward - 12/20/2019 10:22 AM CDTJuan from [employer] is calling in regards to the encounter below in regards to this enco unter. Telephone Encounter - Kristina Ward - 12/17/2019 9:33 AM CDTJuan from [employer] is calling and is requesting an update on encounter below. elephone Encounter - Kristina Ward - 12/16/2019 1:54 PM CDTJuan from [employer] is calling and is requesting to know if fax orders they sent in have been signed, please call Matt back at [phone] signed by Kristina Ward at 12/16/2019 1:56 PM CDTdocumented in this encounter Plan of Treatment Date Type Specialty Care Team Description 01/10/2020 Office Visit Internal Medicine Demi Henderson MD [address] [place] [address] 15 [phone] Health Maintenance Due Date Last Done Comments [...] Addre ss Type Group MEDICARE MEDICARE PART [id number] 2003-Prese [phone] [address] Medicare A & B 2 [id number] [place] [address] [facility] MEDICAID OF [id number] 2018-Presen [phone] [address] Medicaid [place] t 0 [id number] [place] [address] documented as of this encounter Advance Directives Name Relationship Healthcare Agent Communication Relationship Jose Guerrier Child Health Care Agent [email or web address] Obdulio Samson [facility] Care Agent (Mobile)
--- OUTSIDE RECORDS SUMMARY | 2020-01-06 02:21 | XMS REPORT | Summary of Care ---
:1945 Author Organization [facility] Address [address] [place] [address] Care Team Providers Name Role Phone Katie Henderson MD Primary Care Provider Leah Poon Chief Revenue Officer Sammi Eason Insurance Hmo Reason for Visit Reason Comments DME Knee brace Encounter Details Date Type Department Care Team Description 12/20/2019 Telephone [facility] Pediatric Matilde Henderson, DME (Knee brace) and Adult Primary Care- MD Tineo [address] [place] [address] [address] [place] [address] [place] [address] [phone] Allergies Active Allergy Reactions Severity Noted Date [...] (peripheral artery disease), Coronary artery disease involving red devil coronary artery of red devil heart without angina pectoris JANUVIA 25 mg tablet TAKE 1 TABLET BY 30 tablet 10 09/21/2019 Active MOUTH EVERY DAY PREGABALIN 300 mg TAKE 1 CAPSULE BY 60 capsule 10 09/27/2019 Active capsuleIndications: MOUTH TWICE DAILY Other chronic pain Diclofenac Sodium 1 APPLY 2-4 GRAMS 100 g 10 10/18/2019 Active % gelIndications: TOPICALLY THREE Other chronic pain TIMES A DAY NEEDED FOR PAIN LISINOPRIL 10 mg TAKE 1 TABLET BY 30 tablet 0 12/16/2019 Active tabletIndications: MOUTH DAILY Essential hypertension repaglinide 0.5 mg TAKE 1 TABLET BY 90 tablet 3 12/19/2019 Active tabletIndications: MOUTH BEFORE LUNCH Type 2 diabetes AND DINNER IF SUGAR mellitus with 2 HOURS AFTER MEAL complication, IS STILL >200 THEN without long-term INCREASE TO 2 current use of TABLETS BEFORE insulin LUNCH AND DINNER GLIPIZIDE 10 mg TAKE TWO (2) 90 tablet 0 12/19/2019 Active tabletIndications: TABLETS BY MOUTH Type 2 diabetes TWICE DAILY BEFORE mellitus with BREAKFAST AND complication DINNER documented as of this encounter (statuses as of 12/20/2019) Active Problems Problem Noted Date Gastrointestinal hemorrhage with hematemesis 0 Non-seasonal allergic rhinitis due to pollen 0 Non-seasonal allergic rhinitis, unspecified trigger Dyslipidemia 05/12/2019 Coronary artery disease involving red devil coronary brian ry of red devil heart 05/12/2019 without angina pectoris PAD (peripheral [...] Added automatically from request for kinsey arie [id number] Urine incontinence 10/07/2018 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 Henderson's box documented in this encounter Plan of Treatment Date Type Specialty Care Team Description 01/10/2020 Office Visit Internal Medicine Demi Henderson MD [address] [place] [address] 15 [phone] Health Maintenance Due Date Last Done Comments [...] Addre ss Type Group MEDICARE MEDICARE PART [id number] 2003-Prese [phone] [address] Medicare A & B nt 2 [id number] [place] [address] [facility] MEDICAID OF [id number] 2018-Becky [id number] [address] Medicaid [place] t 0 [id number] [place] [address] documented as of this encounter Advance Directives Name Relationship Healthcare Agent Communication Relationship Jose Guerrier [facility] Health Care Agent [email or web address] Obdulio Samson [facility] [phone] Agent (Mobile)
--- OUTSIDE RECORDS SUMMARY | 2020-01-06 02:21 | XMS REPORT | Summary of Care ---
:[address] [facility] - [facility] Address [address] [place] [address] Care Team Providers Name Role Phone Katie Henderson MD Primary Care Provider Leah Poon Franchise Specialist Sammi Eason Insurance Hmo Reason for Visit Reason Comments Refill Request Encounter Details Date Type Department Care Team Description 12/16/2019 Refill [facility] Pediatric and Anne Henderson, Refill Request Adult Primary Care- MD Tineo [address] [place] [address] [address] [address] [address] [place] [address] [place] [address] [phone] Allergies Active Allergy Reactions Severity Noted Date Comments Morphine Hallucinations 06/28/2016 documented as of this encounter (statuses as of 12/19/2019) Medications Medication Sig Dispensed Refills Start End [...] DAY 0 Non-seasonal allergic rhinitis, unspecified trigger baclofen 5 mg Take 2.5 mg by 30 tablet 3 A ctive TabIndications: mouth at bedtime. 0 Other chronic pain XARELTO 20 mg TAKE 1 TABLET BY 30 tablet 2 Active tabletIndications: MOUTH DAILY 0 PAD (peripheral artery disease), Coronary artery disease involving [place] coronary artery of [place] heart without angina pectoris JANUVIA 25 mg TAKE 1 TABLET BY 30 tablet 10 Active tablet MOUTH EVERY DAY 0 PREGABALIN 300 mg TAKE 1 CAPSULE BY 60 capsule 10 Active capsuleIndications MOUTH TWICE DAILY 0 : Other chronic pain Diclofenac Sodium APPLY 2-4 GRAMS 100 g 10 Active 1 % TOPICALLY THREE 0 gelIndications: TIMES A DAY Other chronic pain NEEDED FOR PAIN LISINOPRIL 10 mg TAKE 1 TABLET BY 30 tablet 0 Active tabletIndications: MOUTH DAILY 0 Essential hypertension repaglinide 0.5 mg TAKE 1 TABLET BY 90 tablet 3 Active tabletIndications: MOUTH BEFORE LUNCH 0 Type 2 diabetes AND DINNER IF mellitus with SUGAR 2 HOURS complication, AFTER MEAL IS without long-term STILL >200 THEN current use of INCREASE TO 2 insulin TABLETS BEFORE LUNCH AND DINNER GLIPIZIDE 10 mg TAKE TWO (2) 90 tablet 0 A ctive tabletIndications: TABLETS BY MOUTH 0 Type 2 diabetes TWICE DAILY BEFORE mellitus with BREAKFAST AND complication DINNER repaglinide 0.5 mg TAKE (1) TABLET BY 360 tablet 1 0 12/19/19 Discontinued tabletIndications: MOUTH BEFORE LUNCH 0 20 Type 2 diabetes AND DINNER, IF mellitus with SUGARS 2 HOURS complication, AFTER MEAL ARE without long-term STILL >200 THEN 2 current use of TABLETS BEFORE insulin LUNCH AND DINNER GLIPIZIDE 10 mg TAKE 2 TABLETS BY 120 tablet 2 12/18 Discontinued tabletIndications: MOUTH TWICE DAILY 0 20 Type 2 diabetes BEFORE BREAKFAST mellitus with AND DINNER complication documented as of this encounter (statuses as of 12/19/2019) Active Problems Problem Noted Date Gastrointestinal hemorrhage with hematemesis 0 Non-seasonal allergic rhinitis due to pollen 0 Non-seasonal allergic rhinitis, unspecified trigger Dyslipidemia 05/12/2019 Coronary artery disease involving [place] coronary brian ry of [place] heart 05/12/2019 without angina pectoris PAD (peripheral [...] Added automatically from request for kinsey sargent [id number] Urine incontinence 10/07/2018 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 10/17/2017 mellitus Overgrown toenails 10/17/2017 Colon cancer 06/05/2017 Malignant neoplasm of colon, unspecified part of colon 05/06/2017 Overview: Added automatically from request for kinsey sargent [id number] Colonic mass 03/14/2017 Overview: Added automatically from request for kinsey sargent [id number] 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 S/P hysterectomy 10/29/2016 Vulvar lesion 10/29/2016 Type 2 diabetes mellitus with complication 10/11/2016 Diffuse pain 10/11/2016 Near syncope 06/28/2016 UTI (urinary tract infection) 05/24/2016 Generalized abdominal pain 05/24/2016 documented as of this encounter (statuses as of 12/19/2019) Resolved Problems Problem Noted Date Resolved Date Hematuria 10/29/2016 10/29/2016 documented as of this encounter (statuses as of 12/19/2019) Immunizations Name Administration Dates Next Due Influenza [...] Office Visit Internal Medicine Demi Henderson MD [address] [place] [address] 15 [phone] Health Maintenance Due Date Last Done Comments [...] filedocumented in this encounter Visit Diagnoses Diagnosis Type 2 diabetes mellitus with complicati on, without long-term current use of insulin Type 2 diabetes mellitus with complicati on documented in this encounter Insurance Payer Benefit Plan / Subscriber ID Effective Dates Phone Addre ss Type Group MEDICARE MEDICARE PART [id number] 2003-Prese [phone] [address] Medicare A & B 2 [id number] [place] [address] [facility] MEDICAID OF [id number] 2018-Presen [phone] [address] Medicaid [place] t 0 [id number] [place] [address] documented as of this encounter Advance Directives Name Relationship Healthcare Agent Communication Relationship Jose uGerrier [facility] Health Care Agent Obdulio Samson [facility] Agent (Mobile)
--- OUTSIDE RECORDS SUMMARY | 2020-01-06 02:21 | XMS REPORT | Summary of Care ---
:1945 Author Organization [facility] - [facility] Address [address] [place] [address] Care Team Providers Name Role Phone Katie Henderson MD Primary Care Provider Leah Poon [employer] Architect Sammi Eason Insurance Hmo Reason for Visit Reason Comments DME Encounter Details Date Type Department Care Team Description 12/23/2019 Telephone [facility] Pediatric and Anne Henderson DME Adult Primary Care- [place] [address] [place] [address] [address] [place] [address] [place] [address] [phone] Allergies Active Allergy Reactions Severity Noted Date Comments Morphine Hallucinations 06/28/2016 documented as of this encounter (statuses as of 12/23/2019) Medications Medication Sig Dispensed Refills Start Date [...] (peripheral artery disease), Coronary artery disease involving [place] coronary artery of [place] heart without angina pectoris JANUVIA 25 mg [...] as of this encounter (statuses as of 12/23/2019) Active Problems Problem Noted Date Gastrointestinal hemorrhage with hematemesis 0 Non-seasonal allergic rhinitis due to pollen 0 Non-seasonal allergic rhinitis, unspecified trigger Dyslipidemia 05/12/2019 Coronary artery disease involving [place] coronary brian ry of [place] heart 05/12/2019 without angina pectoris PAD (peripheral [...] Added automatically from request for kinsey sargent [id number] Urine incontinence 10/07/2018 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 10/17/2017 mellitus Overgrown toenails 10/17/2017 Colon cancer 06/05/2017 Malignant neoplasm of colon, unspecified part of colon 05/06/2017 Overview: Added automatically from request for kinsey arie [id number] Colonic mass 03/14/2017 Overview: Added automatically from request for kinsey arie [id number] 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 S/P hysterectomy 10/29/2016 Vulvar lesion 10/29/2016 Type 2 diabetes mellitus with complication 10/11/2016 Diffuse pain 10/11/2016 Near syncope 06/28/2016 UTI (urinary tract infection) 05/24/2016 Generalized abdominal pain 05/24/2016 documented as of this encounter (statuses as of 12/23/2019) Resolved Problems Problem Noted Date Resolved Date Hematuria 10/29/2016 10/29/2016 documented as of this encounter (statuses as of 12/23/2019) Immunizations Name Administration Dates Next Due Influenza [...] Notes Telephone Encounter - Vandana Sexton - 12/23/2019 1:33 PM CDTForms placed on Dr. Darlene Henderson folder waiting for signature. Vandana Sexton 12/23/2019 1:34 PM documented in this encounter Plan of Treatment Date Type Specialty Care Team Description 01/10/2020 Office Visit Internal Medicine Demi Henderson MD [address] [place] [address] 15 [phone] Health Maintenance Due Date Last Done Comments [...] Addre ss Type Group MEDICARE MEDICARE PART [id number] 2003-Prese [phone] [address] Medicare A & B nt 2 [id number] [place] [address] [facility] MEDICAID OF [id number] 2018-Presen [phone] [address] Medicaid [place] t 0 [id number] [place] [address] documented as of this encounter Advance Directives Name Relationship Healthcare Agent Communication Relationship Jose Guerrier [facility] Health Care Agent [email or web address] Obdulio Samson [facility] Agent (Mobile)
--- OUTSIDE RECORDS SUMMARY | 2020-01-06 02:22 | XMS REPORT | Summary of Care ---
:1945 Author Organization [facility] - [facility] Address [address] [place] [address] Care Team Providers Name Role Phone Katie Henderson MD Primary Care Provider Leah Poon [employer] Sammi Eason Insurance Hmo Reason for Visit Reason Comments Orders Encounter Details Date Type Department Care Team Description 12/29/2019 Telephone [facility] Pediatric and Anne Henderson Orders Adult Primary Care- MD Tineo [address] [place] [address] [address] [place] [address] [place] [address] [phone] Allergies Active Allergy Reactions Severity Noted Date Comments Morphine Hallucinations 06/28/2016 documented as of this encounter (statuses as of 12/29/2019) Medications Medication Sig Dispensed Refills Start Date [...] (peripheral artery disease), Coronary artery disease involving [place] coronary artery of [place] heart without angina pectoris JANUVIA 25 mg [...] as of this encounter (statuses as of 12/29/2019) Active Problems Problem Noted Date Gastrointestinal hemorrhage with hematemesis 0 Non-seasonal allergic rhinitis due to pollen 0 Non-seasonal allergic rhinitis, unspecified trigger Dyslipidemia 05/12/2019 Coronary artery disease involving [place] coronary brian ry of 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 10/17/2017 mellitus Overgrown toenails 10/17/2017 Colon cancer 06/05/2017 Malignant neoplasm of colon, unspecified part of colon 05/06/2017 Overview: Added automatically from request for kinsey arie [id number] Colonic mass 03/14/2017 Overview: Added automatically from request for kinsey arie [id number] 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 S/P hysterectomy 10/29/2016 Vulvar lesion 10/29/2016 Type 2 diabetes mellitus with complication 10/11/2016 Diffuse pain 10/11/2016 Near syncope 06/28/2016 UTI (urinary tract infection) 05/24/2016 Generalized abdominal pain 05/24/2016 documented as of this encounter (statuses as of 12/29/2019) Resolved Problems Problem Noted Date Resolved Date Hematuria 10/29/2016 10/29/2016 documented as of this encounter (statuses as of 12/29/2019) Immunizations Name Administration Dates Next Due Influenza [...] Notes Telephone Encounter - Vandana Sexton - 12/29/2019 4:08 PM CDTAttempted to call patient, n/a, left message to call clinic back. SHELLIE:07/23/2019. Patient has not followed up with either providers, has no showed and we can not reach her to confirmrequested DME, we are not able to get DME Signed by provider. Vandana Sexton 12/29/2019 4:10 PM elephone Encounter - Kristina Ward - 12/29/2019 3:24 PM Denilson is calling from [employer] and is requesting an update on forms faxed in on 12/26,Matt has been requesting forms since 12/13/19 please call Matt back at [phone]. documented in this encounter Plan of Treatment Date Type Specialty Care Team Description 01/10/2020 Office Visit Internal Medicine Demi Henderson MD [address] [place] [address] 15 [phone] Health Maintenance Due Date Last Done Comments [...] Addre ss Type Group MEDICARE MEDICARE PART [id number] 2003-Prese [phone] [address] Medicare A & B 2 [id number] [place] [address] [facility] MEDICAID OF [id number] 2018-Presen [phone] [address] Medicaid [place] t 0 [id number] [place] [address] documented as of this encounter Advance Directives Name Relationship Healthcare Agent Communication Relationship Jose Guerrier Child Health Care Agent [email or web address] Obdulio Samson [facility] Agent (Mobile)
== END 2020-01-03 02:15 | disposition home or self-care (01) ==
LOC: ER 22:01
DX: J06.9 Acute upper respiratory infection, unspecified (principal); Z20.828 Contact with and (suspected) exposure to other viral communicable diseases; I10 Essential (primary) hypertension; E11.9 Type 2 diabetes mellitus without complications; I48.91 Unspecified atrial fibrillation; Z79.01 Long term (current) use of anticoagulants; Z88.5 Allergy status to narcotic agent
CPT/HCPCS: 87070; 87081; 87804 ×2; 71045; 99284; U0002

== ENCOUNTER 2020-01-06 22:25 | Emergency (ER) | payer OTHER ==
[2020-01-06] MEDS ORDERED: KETOROLAC 30 MG/ML INJ ONE (23:31)
--- NOTE | 2020-01-07 00:57 | EDPHYS ---
Physician Documentation [facility] Name: Leydi Guerrier Age: 74 yrs Sex: Female : 1945 Arrival Date: 01/06/2020 Time: 22:42 Bed 17 Private MD: Natanael Mendoza ED Physician Duran Pires HPI: 01/05 22:49 This 74 yrs old Female presents to ER via Unassigned with complaints of chest kb wall pain s/p fall. 22:49 Details of fall: The patient fell from an upright position. Onset: The symptoms/episode kb began/occurred yesterday. Associated injuries: The patient sustained injury to the chest, specifically the anterior aspect of right upper chest, anterior aspect of left upper chest and mid-sternal area, pain with movement, tenderness. Severity of symptoms: At their worst the symptoms were moderate, in the emergency department the symptoms are unchanged. The patient has not experienced similar symptoms in the past. The patient has not recently seen a physician. PT reports she went to the restroom yesterday and fell, hitting chest on the wheelchair. Reproducible pain to entire chest wall. No discoloration noted. Slight ecchymosis noted to right shoulder. Historical: - Allergies: 22:57 Morphine; fu - Immunization history:: Adult Immunizations unknown. - Social history:: Smoking status: Patient/guardian denies using tobacco products. ROS: 22:48 Constitutional: Negative for fever, chills, and weight loss, Respiratory: Negative for kb shortness of breath, cough, wheezing, and pleuritic chest pain, Abdomen/GI: Negative for abdominal pain, nausea, vomiting, diarrhea, and constipation, Back: Negative for injury and pain, Skin: Negative for injury, rash, and discoloration, Neuro: Negative for headache, weakness, numbness, tingling, and seizure. 22:48 Cardiovascular: Positive for chest pain, with movement. 22:48 MS/extremity: Positive for decreased range of motion, pain, tenderness, of the anterior aspect of right shoulder. Exam: 22:47 Constitutional: This is a well developed, well nourished patient who is awake, alert, kb and in no acute distress. Head/Face: Normocephalic, atraumatic. Cardiovascular: Regular rate and rhythm with a normal S1 and S2. No gallops, murmurs, or rubs. Normal PMI, no JVD. No pulse deficits. Respiratory: Lungs have equal breath sounds bilaterally, clear to auscultation and percussion. No rales, rhonchi or wheezes noted. No increased work of breathing, no retractions or nasal flaring. Abdomen/GI: Soft, non-tender, with normal bowel sounds. No distension or tympany. No guarding or rebound. No evidence of tenderness throughout. Back: No spinal tenderness. No costovertebral tenderness. Full range of motion. Skin: Warm, dry with normal turgor. Normal color with no rashes, no lesions, and no evidence of cellulitis. Neuro: Awake and alert, GCS 15, oriented to person, place, time, and situation. Cranial nerves II-XII grossly intact. Motor strength 5/5 in all extremities. Sensory grossly intact. Cerebellar exam normal. Normal gait. 22:47 Chest/axilla: Inspection: normal, Palpation: tenderness, that is moderate, of the anterior aspect of right upper chest, anterior aspect of left upper chest and mid-sternal area, that totally reproduces the patient's complaints, Axilla: are normal. 22:47 Musculoskeletal/extremity: Extremities: grossly normal except: noted in the anterior aspect of right shoulder: ecchymosis, pain, tenderness, ROM: limited passive range of motion due to pain, in the anterior aspect of right shoulder, Circulation is intact in all extremities. Sensation intact. 23:01 ECG was reviewed by the Attending Physician. kb Vital Signs: 22:46 BP 134 / 66; Pulse 75; Resp 18; Temp 97.3; Pulse Ox 96% on R/A; Pain 7/10; fu 23:30 BP 180 / 76; Pulse 69; Resp 16; Pulse Ox 99% on R/A; Pain 5/10; fu 01/06 01:21 BP 162 / 73; Pulse 67; Resp 13 S; Pulse Ox 98% on R/A; Pain 4/10; fu 01:45 BP 155 / 93; Pulse 66; Resp 15; Pulse Ox 98% on R/A; Pain 0/10; fu MDM: 01/05 22:43 Patient medically screened. kb 22:47 Data reviewed: vital signs, nurses notes. kb 22:56 Data interpreted: Pulse oximetry: on room air is 96 %. Interpretation: normal. kb 23:20 Transition of care: After a detail discussion of the patient's case, care is kb transferred to Duran Pires MD. 01/06 00:53 Differential diagnosis: abrasion, closed head injury, contusion. Data reviewed: lab tw4 test result(s), radiologic studies, CT scan. Counseling: I had a detailed discussion with the patient and/or guardian regarding: the historical points, exam findings, and any diagnostic results supporting the discharge/admit diagnosis, lab results, radiology results. Special discussion: I discussed with the patient/guardian in detail that at this point there is no indication for admission to the hospital. It is understood, however, that if the symptoms persist or worsen the patient needs to return immediately for re-evaluation. 01/05 22:44 Order name: Chest Single View XRAY 01/05 22:44 Order name: Shoulder Right (2 View) XRAY 01/05 22:44 Order name: EKG; Complete Time: 22:44 kb 01/05 22:44 Order name: EKG - Nurse/Tech; Complete Time: 23:05 kb 01/05 23:20 Order name: CT Chest Wo Con kb EC/08 23:01 Rate is 71 beats/min. Rhythm is regular. Left axis deviation noted. TN interval is kb normal at 162 msec. QRS interval is normal at 144 msec. QT interval is normal at 418 msec. Administered Medications: 23:24 Drug: TORadol 30 mg Route: IM; Site: left deltoid; fu 23:43 Follow up: Response: Pain is decreased fu Disposition: 01/06 00:53 Co-signature as Attending Physician, Duran Pires MD I agree with the assessment and tw4 plan of care. Disposition: 01/07/20 00:57 Discharged to Home. Impression: Contusion of left front wall of thorax, Atelectasis. - Condition is Stable. - Discharge Instructions: Atelectasis, Adult, Contusion, Chest Wall Pain, Chest Contusion, Adult. - Prescriptions for Tramadol 50 mg Oral Tablet - take 1 tablet by ORAL route every 8 hours as needed; 12 tablet. Zithromax Z- Tadeo 250 mg Oral Tablet - take 1 tablet by ORAL route once daily for 3 days; 3 tablet. - Medication Reconciliation Form, Thank You Letter, Antibiotic Education, Prescription Opioid Use form. - Follow up: Natanael Mendoza MD; When: Upon discharge from the Emergency Department; Reason: Recheck today's complaints, Continuance of care, Re-evaluation by your physician. - Problem is new. - Symptoms have improved. Signatures: Dispatcher [employer] EDMS Drew Ruggieroistin, OFFENDER JOB RETENTION SPECIALIST-C OFFENDER JOB RETENTION SPECIALIST-Ckb Billy Carmona, Duran Douglas RN, MD MD tw4 Corrections: (The following items were deleted from the chart) 00:58 00:57 01/07/2020 00:57 Discharged to Home. Impression: Contusion of right front wall of tw4 thorax. Condition is Stable. Forms are Medication Reconciliation Form, Thank You Letter, Antibiotic Education, Prescription Opioid Use. Follow up: Natanael Mendoza; When: Upon discharge from the Emergency Department; Reason: Recheck today's complaints, Continuance of care, Re-evaluation by your physician. Problem is new. Symptoms have improved. tw4 02:14 00:58 01/07/2020 00:57 Discharged to Home. Impression: Contusion of left front wall of fu thorax; Atelectasis. Condition is Stable. Forms are Medication Reconciliation Form, Thank You Letter, Antibiotic Education, Prescription Opioid Use. Follow up: Natanael Mendoza; When: Upon discharge from the Emergency Department; Reason: Recheck today's complaints, Continuance of care, Re-evaluation by your physician. Problem is new. Symptoms have improved. tw4
--- NOTE | 2020-01-07 00:57 | ER ---
Nurse's Notes [facility] Name: Leydi Guerrier Age: 74 yrs Sex: Female : 1945 Arrival Date: 01/06/2020 Time: 22:42 Bed 17 Private MD: Natanael Mendoza Diagnosis: Contusion of left front wall of thorax;Atelectasis Presentation: 01/05 22:50 Chief complaint: EMS states: patient discharge in ER couple of days ago due to fu respiratory tract infection. yesterday patient fell, complaining of pain on her chest and shoulder. Coronavirus screen:. Ebola Screen: No symptoms or risks identified at this time. Initial Sepsis Screen: Does the patient meet any 2 criteria? No. Patient's initial sepsis screen is negative. Initial Sepsis Screen: Does the patient have a suspected source of infection? No. Patient's initial sepsis screen is negative. Risk Assessment: Do you want to hurt yourself or someone else? Patient reports no desire to harm self or others. Onset of symptoms was January 05, 2020. 22:50 Method Of Arrival: EMS: [facility] 22:50 Acuity: ADY 3 fu Triage Assessment: 22:30 General: Appears uncomfortable, Behavior is calm, cooperative, appropriate for age. fu Pain: Complains of pain in right arm and anterior aspect of right shoulder and mid-sternal area and anterior aspect of left upper chest and anterior aspect of right upper chest Pain currently is 7 out of 10 on a pain scale. Pain began 1 day ago. Aggravated by movement. 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 Neuro: Level of Consciousness is awake, alert, obeys commands, Oriented to person, place, Route Process Administrator are weak bilaterally Moves all extremities. Weakness Speech is normal, Facial symmetry appears normal. Derm: Bruising that is on anterior aspect of right shoulder. Historical: - Allergies: 22:57 Morphine; fu - Immunization history:: Adult Immunizations unknown. - Social history:: Smoking status: Patient/guardian denies using tobacco products. Screenin:03 Abuse screen: Denies threats or abuse. Nutritional screening: No deficits noted. fu Tuberculosis screening: No symptoms or risk factors identified. Fall Risk None identified. Assessment: 22:58 General: Appears uncomfortable, Behavior is calm, cooperative, appropriate for age, fu Denies fever, feeling ill, fatigue, chills. Pain: Complains of pain in right arm and anterior aspect of right shoulder and mid-sternal area and anterior aspect of left upper chest and anterior aspect of right upper chest Pain currently is 7 out of 10 on a pain scale. Pain began today Aggravated by movement Noted to be guarding, moaning. Neuro: Level of Consciousness is awake, alert, obeys commands, Oriented to person, place, Route Process Administrator are weak bilaterally Weakness Speech is normal, Facial symmetry appears normal, patient is blind on both eyes. Cardiovascular: Reports chest pain, Denies nausea, vomiting. Respiratory: Airway is patent. Derm: Bruising that is on right shoulder. Musculoskeletal: Reports she wheelchair bound. Injury Description: Bruise sustained to right shoulder. 23:42 Reassessment: patient in not in room for CT scan. fu 01/06 00:30 Reassessment: Patient and/or family updated on plan of care and expected duration. Pain fu level reassessed. Patient is alert, oriented x 3, equal unlabored respirations, skin warm/dry/pink. Patient states feeling better. 01:23 Reassessment: patient for discharge, awaiting nephewMatt to pick her up. fu 02:14 Reassessment: No changes from previously documented assessment. Patient and/or family fu updated on plan of care and expected duration. Pain level reassessed. Patient is alert, oriented x 3, equal unlabored respirations, skin warm/dry/pink. 02:19 Reassessment: patient discharged by wheelchair, patient nephew in the facility, patient fu helped to transport vehicle. Vital Signs: 01/05 22:46 BP 134 / 66; Pulse 75; Resp 18; Temp 97.3; Pulse Ox 96% on R/A; Pain 7/10; fu 23:30 BP 180 / 76; Pulse 69; Resp 16; Pulse Ox 99% on R/A; Pain 5/10; fu 01/06 01:21 BP 162 / 73; Pulse 67; Resp 13 S; Pulse Ox 98% on R/A; Pain 4/10; fu 01:45 BP 155 / 93; Pulse 66; Resp 15; Pulse Ox 98% on R/A; Pain 0/10; fu ED Course: 01/05 22:42 Patient arrived in ED. ag3 22:43 Cathi Ruggiero FNP-C [facility]. kb 22:43 Duran Pires MD is Attending Physician. kb 22:44 Billy Carmona, RN is Primary Nurse. fu 22:56 Triage completed. fu 23:00 Arm band placed on. fu 23:03 Patient has correct armband on for positive identification. Bed in low position. Call fu light in reach. Side rails up X2. ekg monitor on. Pulse ox on. NIBP on. 23:26 Chest Single View XRAY In Process Unspecified. EDMS 23:27 Shoulder Right (2 View) XRAY In Process Unspecified. EDMS 23:44 No provider procedures requiring assistance completed. fu 23:51 CT Chest Wo Con In Process Unspecified. EDMS 01/06 00:14 Natanael Mendoza MD is Private Physician. 00:55 Natanael Mendoza MD is Referral Physician. tw4 02:00 Patient did not have IV access during this emergency room visit. fu Administered Medications: 01/05 23:24 Drug: TORadol 30 mg Route: IM; Site: left deltoid; fu 23:43 Follow up: Response: Pain is decreased fu Outcome: 01/06 00:57 Discharge ordered by . tw4 02:00 Discharged to home via wheelchair, with family. fu 02:00 Condition: improved 02:00 Discharge instructions given to nephew Instructed on discharge instructions, follow up and referral plans. Demonstrated understanding of instructions, follow-up care, Prescriptions given X 2. 02:14 Patient left the ED. fu Signatures: Dispatcher [employer] EDFL Cathi Ruggiero FNP-C FNP-Mando Bennett RN RN Billy Carmona, RN RN Duran Pires MD MD tw4 Aria Graves ag3 Corrections: (The following items were deleted from the chart) 01/05 23:04 22:50 BP 134 / 66; Pulse 75bpm; Resp 18bpm; Pulse Ox 96% RA; Temp 97.3F; Pain 7/10; fu fu 23:39 22:50 Chief complaint: EMS states: patient discharge in the hospital couple of days ago fu due to respiratory tract infection. Today patient fell, complaining of pain on her chest and shoulder. fu 23:40 22:50 Onset of symptoms was January 06, 2020 fu fu 01/06 01:19 01/05 23:39 Onset of symptoms [facility] 01/06 01:49 01:23 Reassessment: patient for discharge, awaiting nephewMatt to ick her up. [facility]
[2020-01-07 02:19] VITALS: TEMP 97.3
[2020-01-07 02:23] VITALS: BP 162/73; O2SAT 98
--- OUTSIDE RECORDS SUMMARY | 2020-01-07 05:32 | XMS REPORT | Clinical Summary ---
:1945 Author Organization [facility] Address [address] [place] [address] Care Team Providers Name Role Phone Asked, Pcp Primary Care Provider Unavailable Allergies Active Allergy Reactions Severity Noted Date Comments Morphine 08/02/2016 Medications Not on file Active Problems Not on file Encounters Date Type Specialty Care Team Description 12/14/2019 Travel 12/10/2019 Travel 11/12/2019 Travel 11/11/2019 Travel 11/09/2019 Travel after 01/05/2019 Surgical History Surgery Date Site/Laterality Comments TOE [...] 01/31/2020 Office Visit Neuropsychology Vandana Villela, PhD [address] [place], [place] [address] [phone] Health Maintenance Due Date Last Done Comments BREAST CANCER SCREENING 12/31/1995 COLONOSCOPY SCREENING 12/31/1995 SHINGLES VACCINES (#1) 12/31/1995 65+ PNEUMOCOCCAL VACCINE (1 of 1 - PPSV23) 2010 INFLUENZA VACCINE 10/30/2019 Results Not on fileafter 01/05/2019 Insurance Payer Benefit Plan / Subscriber ID Effective Dates Phone Addre ss Type Group MEDICARE MEDICARE PART A [id number] 2003-Present [facility], [place] Medicare AND B MEDICAID MEDICAID [id number] 2011-Present Med icaid Advance Directives For more information, please contact: [phone] Type Date Recorded Patient Slusher Operator Explanati on Advance Directives, Living Will and Medical Power of License Clerk
--- OUTSIDE RECORDS SUMMARY | 2020-01-07 05:33 | XMS REPORT | Clinical Summary ---
:1945 Author Organization [facility] Address [address] [place] [address] Care Team Providers Name Role Phone Pcp, [...] pain Bird Mota MD 02/17/2019 Travel after 01/05/2019 Social History Tobacco Use Types Packs/Day Years [...] Taken Blood Pressure 149/62 02/19/2019 7:34 AM [facility] Pulse 80 02/19/2019 7:34 AM [facility] Temperature 36.5 C (97.7 F) 02/19/2019 7:34 AM [facility] Respiratory Rate 18 02/19/2019 7:34 AM [facility] Oxygen Saturation 99% 02/19/2019 7:34 AM [facility] Inhaled Oxygen Concentration - - Weight 72.1 kg (159 lb) 02/17/2019 5:11 PM [facility] Height 157.5 cm (5' 2") 02/17/2019 5:11 PM [facility] Body Mass Index 29.08 02/17/2019 5:11 PM [facility] Plan of Treatment Not on file Procedures Procedure Name Priority Date/Time Associated Comments Diagnosis RHYTHM STRIP - SCAN 02/23/2019 8:51 AM [facility] POCT-GLUCOSE METER Routine 02/19/2019 7:25 Resul ts for this AM [facility] procedure are i n the results section. XR CHEST 1 VIEW STAT 02/19/2019 12:06 Results for this PORTABLE/BEDSIDE AM [facility] procedure a re in the results section. POCT-GLUCOSE METER Routine 02/18/2019 11:30 Resul ts for this PM [facility] procedure are i n the results section. POCT-GLUCOSE METER Routine 02/18/2019 8:42 Resul ts for this AM [facility] procedure are i n the results section. CBC W/PLT COUNT & STAT 02/18/2019 4:18 Result s for this AUTO DIFFERENTIAL AM [facility] procedure are in the results section. CBC W/PLT COUNT & STAT 02/18/2019 4:18 Result s for this AUTO DIFFERENTIAL AM [facility] procedure are in the results section. LIPID PANEL STAT 02/18/2019 4:18 Results for this AM [facility] procedure are i n the results section. HEMOGLOBIN A1C STAT 02/18/2019 4:18 Results f or this AM [facility] procedure are i n the results section. HEPATIC FUNCTION STAT 02/18/2019 4:18 Results for this PANEL AM [facility] procedure are i n the results section. BASIC METABOLIC PANEL STAT 02/18/2019 4:18 Re sults for this (7) AM [facility] procedure are i n the results section. POCT-GLUCOSE METER Routine 02/17/2019 10:44 Resul ts for this PM [facility] procedure are i n the results section. CT ABDOMEN/PELVIS STAT 02/17/2019 6:47 Result s for this WITH IV CONTRAST PM [facility] procedure a re in the results section. CBC W/PLT COUNT & STAT 02/17/2019 5:52 Result s for this AUTO DIFFERENTIAL PM [facility] procedure are in the results section. LIPASE STAT 02/17/2019 5:52 Results for this PM [facility] procedure are i n the results section. HEPATIC FUNCTION STAT 02/17/2019 5:52 Results for this PANEL PM [facility] procedure are i n the results section. BASIC METABOLIC PANEL STAT 02/17/2019 5:52 Re sults for this (7) PM [facility] procedure are i n the results section. CBC W/PLT COUNT & STAT 02/17/2019 5:52 Result s for this AUTO DIFFERENTIAL PM [facility] procedure are in the results section. PROTHROMBIN TIME/INR STAT 02/17/2019 5:52 Res ults for this PM [facility] procedure are i n the results section. WET PREP STAT 02/17/2019 5:45 Results for this PM [facility] procedure are i n the results section. CRITICAL CARE Routine 02/17/2019 4:41 Results fo r this PM [facility] procedure are i n the results section. after 01/05/2019 Results RHYTHM STRIP - SCAN (02/23/2019 8:51 AM [facility]) Narrative Performed At This result has an attachment that is no t available. POC-Glucose meter (02/19/2019 7:25 AM [facility])Only the most recent of4 results within the time period is included. POC-Glucose Meter 81Comment: : TESTED AT 70 - 110 mg/dL [facility] [address], [place] [facility] [id number]: Discount Clerk/Sur[employer] Research Center Director ID = [id number] for Shahana Hweitt Specimen Blood Performing Organization Address City/State/Zipcode Phone Number [facility] [address] [place] [address] CENTER XR chest 1 view portable / bedside (02/19/2019 12:06 AM [facility]) Specimen Narrative Performed At FINAL REPORT [facility] RAD, CHEST, 1 VIEW, NON DEPT [...] External Ris In - 02/19/2019 12:14 AM [facility] FINAL REPORT RAD, CHEST, 1 VIEW, NON [...] 0:12:27 Performing Organization Address City/State/Zipcode Phone Number [facility] CBC with platelet count + automated diff (02/18/2019 4:18 AM [facility])Only the most recent of2 resultswithin the time period is included. WBC 4.6 4.0 - 10.0 K/L [facility] RBC 3.34 (L) 4.00 - 5.00 M/L [...] Blood Performing Organization Address City/State/Zipcode Phone Number [facility] [address] [place] [address] Hemoglobin A1c (02/18/2019 4:18 AM [facility]) Hemoglobin A1C 8.6 (H) 4.3 - 6.1 % [facility] Specimen Blood Performing Organization Address City/State/Zipcode Phone Number [facility] [address] [place] [address] Hepatic function panel (02/18/2019 4:18 AM [facility])Only the most recent of2 results within the [...] City/State/Zipcode Phone Number [facility] [address] [place], [place] [address] Lipid panel (02/18/2019 4:18 AM [facility]) Triglycerides 46 mg/dL [facility] Cholesterol 90 mg/dL [facility] HDL 44 mg/dL [facility] LDL Calculated 37 mg/dL [facility] Specimen Blood Narrative Performed At Triglyceride Reference Range: [facility] Low Risk <150 [id number] High Risk 200-499 Very High Risk>=500 Cholesterol Reference Range: Low Risk <200 [id number] High Risk>240 HDL Cholesterol Reference Range: Low Risk >=60 High Risk <40 LDL Cholesterol Reference Range: Optimal<100 Near Gkbzqjr112-009 Btruzmaryz162-337 Juhq671-147 Very High >=190 Performing Organization Address City/State/Zipcode Phone Number [facility] [address] [place], [place] [address] Basic metabolic panel (02/18/2019 4:18 AM [facility])Only the most recent of2 results within the [...] GFR IS NOT mL/min/1.73 s q m [facility] ACCURATE CREATININE CLEARANCE IN PREDICTING GLOMERULAR FILTRATION RATE. ESTIMATED GFR IS NOT APPLICABLE FOR DIALYSIS PATIENTS. Specimen Blood Performing Organization Address City/State/Zipcode Phone Number [facility] [address] [facility] [place] [address] abdomen pelvis with IV contrast (02/17/2019 6:47 PM [facility]) Specimen Narrative Performed At FINAL REPORT Collusion RIS ABDOMINAL AND PELVIS CT DATED 02/17/2019 [...] MD Report Verified Date/Time:02/17/2019 18:58:34 Reading Location: [facility] [id number] [facility] Procedure Note Interface, External Ris In - 02/17/2019 7:00 PM [facility] FINAL REPORT ABDOMINAL AND PELVIS CT DATED [...] Verified Date/Time: 02/17/2019 1 8:58:34 Reading Location: [address] Performing Organization Address City/State/Zipcode Phone Number GE RIS PT/INR (02/17/2019 5:52 PM [facility]) Protime 14.2 (H) 9.3 - 12.0 sec [facility] INR 1.3 <=5.9 [facility] Specimen Blood Narrative Performed At RECOMMENDED COUMADIN/WARFARIN INR THERAP Y RANGES [facility] STANDARD DOSE: 2.0 - 3.0 Includes: PROPHYLAXIS for venous thrombosis, systemic embolization; TREATMENT for venou s thrombosis and/or pulmonary embolus. HIGH RISK: Target INR is 2.5-3.5 for patients with mec hanical heart valves. Final Information (Auto Output) Final Information (Auto Output) Performing Organization Address City/State/Zipcode Phone Number [facility] [address] [place], [place] [address] Lipase (02/17/2019 5:52 PM [facility]) Lipase 6 6 - 51 U/L [facility] Specimen Blood Performing Organization Address City/[facility]/Zipcode Phone Number [facility] [address] [place], [place] [address] Wet prep, genital (02/17/2019 5:45 PM [facility]) WBC - wet prep Moderate white blood [...] Bacteria - wet prep Few bacteria seen [facility] Specimen Genital Performing Organization Address City/[facility]/Zipcode Phone Number [facility] [address] [place], [place] [address] CRITICAL CARE (02/17/2019 4:41 PM [facility]) Narrative [place] [address]:53 AM Critical Care Performed by: Anabela Kimbrough MD Authorized by: Bird Garcia MD Total critical care time: 45 minutes Critical care was necessary to treat or prevent imminent or life-threatening deterioration of the fo llowing conditions: sepsis. Critical care was time spent personally by me on the [facility] activities: blood draw for specimens, discussions [...] another provider o f my specialty. after 01/05/2019 Insurance Payer Benefit Plan / Group Subscriber ID Type Phone A ddress MEDICARE MEDICARE A B xxxxxxxxxxx Medicare [place] MED[place]ID MEDICAID [place] xxxxxxxxx Advance Directives For more information, please contact:[address] [place], [place] [phone] Code Status Date Activated Date Inactivated Comments Full Code 02/17/2019 10:31 PM 02/19/2019 1:18 PM This code status was determined by: Patient
--- OUTSIDE RECORDS SUMMARY | 2020-01-07 05:34 | XMS REPORT | Summary of Care ---
:1945 Author Organization [facility] Address [address] [place] [address] Care Team Providers Name Role Phone Katie [place] MD Primary Care Provider Leah Poon Director Translation Sammi Eason Insurance Hmo Reason for Visit Reason Comments Refill Request Encounter Details Date Type Department Care Team Description 10/16/2019 Refill [facility] Pediatric and Kevon Aguilar MD Refill Request Adult Primary Care- 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 Medicare A & B 2 [id number] RADHA RAMOS [id number] [facility] MEDICAID OF xxxxxxxxx 2018-Presen [phone] [address] Medicaid [facility] 0 [id number] [place] [address] documented as of this encounter Advance Directives Name Relationship Healthcare Agent Communication Relationship Jose Fareed Child Primary healthcare agent Obdulio Samson [facility] [place] agent (Mobile)
--- OUTSIDE RECORDS SUMMARY | 2020-01-07 05:34 | XMS REPORT | Summary of Care ---
:1945 Author Organization [facility] Address [address] [place] [address] Care Team Providers Name Role Phone Katie [place] MD Primary Care Provider Leah Poon Cane Weigher Helper Sammi Eason Insurance Hmo Encounter Details Date Type Department Care Team Description 09/13/2019 Orders Only [facility] Doctor Unassigned, No [address] [facility] [address] [place] [address] Allergies Active Allergy Reactions Severity Noted Date [...] trigger Dyslipidemia 05/12/2019 Coronary artery disease involving [place] coronary brian ry of [place] heart 05/12/2019 without angina pectoris PAD (peripheral [...] Added automatically from request for kinsey sargent [id number] Urine incontinence 10/07/2018 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 10/17/2017 mellitus Overgrown toenails 10/17/2017 Colon cancer 06/05/2017 Malignant neoplasm of colon, unspecified part of colon 05/06/2017 Overview: Added automatically from request for kinsey sargent [id number] Colonic mass 03/14/2017 Overview: Added automatically from request for kinsey sargent [id number] Vulvar intraepithelial neoplasia (CHASE) grade 3 017 [...] Office Visit Family Medicine Kevon Donis MD [address] [place] [address] Dr [place], [place] [address] [phone] Health Maintenance Due Date Last Done Comments [...] Type Group MEDICARE MEDICARE PART xxxxxxxxxxx 2003-Prese [phone] [address] Medicare A & B nt 2 [id number] [place] [phone] [facility] MEDICAID OF xxxxxxxxx 2018-Presen [phone] [address] Medicaid [place] 0 [id number] [place] [address] documented as of this encounter Advance Directives Name Relationship Healthcare Agent Communication Relationship Jose Guerrier Child Primary healthcare agent [email or web address] Obdulio Rey Nephew [facility] [place] agent (Mobile)
--- OUTSIDE RECORDS SUMMARY | 2020-01-07 05:34 | XMS REPORT | Continuity of Care Document ---
:1945 Author Organization [facility] t Address [address] [place] [address] Care Team Providers Name Role Phone Asked, [...] Source Type Date Date MEDICAREMEDICARE PART A [id number] 2003 [place] AND 00:00:00 Evangelical [id number] 2003-Pr [facility] [id number] 2011 [place] -PresentMedicai 00:00:00 Meli hanson MEDICAREMEDICARE A xxxxxxxxxxx WERNER [facility] - [facility] dical [place] ZAMORANO MEDICAIDMEDICAID xxxxxxxxx C [facility] [...] Quantity Comments Source Exposure to Not sure [place] [facility] dist SARS-CoV-2 (event) History SDOH [facility] - Alcohol Std Drinks Medica [facility] History SDOH [facility] - Alcohol Binge Medical [facility] ter Sex Assigned At [facility] History SDOH 2019-02-17 2019-02-[address] [facility] - Alcohol Frequency 00:00:00 00:00:00 [facility] Alcohol intake 2016-08-02 2016-08-02 Current [facility] thodist 00:00:00 00:00:00 non-drinker of alcohol (finding) Smoking Status Start Date Stop Date Source Never smoker [facility] edical [place] Medications Ordered Filled Start Stop Current Ordering [...] 10:37: 00:00 daily. Medical tablet 36 :00 [place] SITagliptin 2018-03- No 50mg QD Take 50 [...] tablet 10:37: 00:00 daily. Medical 36 :00 [place] aspirin 81 2018-03- No 81mg QD Take [address] [facility] EC 04-21 tablet (81 [facility] - tablet 00:00: 23:59 mg total) Medic al 00 :00 by mouth Center daily for 30 days. atorvastati 2018-03- No 10mg QD Take [address] n (LIPITOR) 04-21 tablet (10 L ukes - 10 MG [...] 10 days. ondansetron 2018-03 Yes Take by [facility] (ZOFRAN) 4 1-20 mouth [facility] - mg/5 [...] Source Systolic blood 2019-02-19 07:34:00 149 mm[Hg] [facility] Diastolic blood 2019-02-19 07:34:00 62 mm[Hg] [facility] S [facility] Heart rate 2019-02-19 07:34:00 80 /min [facility] Body temperature 2019-02-19 07:34:00 36.5 Regla [facility] Respiratory rate 2019-02-19 07:34:00 18 /min [facility] Oxygen saturation in 2019-02-19 07:34:00 99 /min [facility] Arterial blood by Medical Ce nter Pulse oximetry Body height 2019-02-17 17:11:[address] [facility] Body weight Measured 2019-02-17 17:11:00 72.122 kg [facility] BMI 2019-02-17 17:11:00 29.08 kg/m2 [facility] Procedures Procedure Date / Time Performed Performing Clinician [facility] e RHYTHM STRIP - SCAN 2019-02-23 08:51:58 Provider, Default [facility] POCT-GLUCOSE METER 2019-02-19 07:25:00 Bird Garcia [facility] XR CHEST 1 VIEW 2019-02-19 00:06:00 Bernabe Beltran [facility] es - PORTABLE/BEDSIDE [facility] POCT-GLUCOSE METER 2019-02-18 23:30:00 Bird Garcia [facility] POCT-GLUCOSE METER 2019-02-18 08:42:[address] [facility] BASIC METABOLIC PANEL 2019-02-18 04:18:00 [place]abela [place] [address]) [facility] HEPATIC FUNCTION PANEL 2019-02-18 04:18:00 Luis E [facility] HEMOGLOBIN A1C 2019-02-18 04:18:00 Luis E [facility] LIPID PANEL 2019-02-18 04:18:00 Luis E [facility] CBC W/PLT COUNT & AUTO 2019-02-18 04:18:00 Luis E [facility] POCT-GLUCOSE METER 2019-02-17 22:44:[address] [facility] CT ABDOMEN/PELVIS WITH 2019-02-17 18:47:00 Luis E [facility] CONTRAST [facility] PROTHROMBIN TIME/INR 2019-02-17 17:52:00 Anabela Kimbrough [facility] BASIC METABOLIC PANEL 2019-02-17 17:52:00 [facility] HEPATIC FUNCTION PANEL 2019-02-17 17:52:00 Luis E [facility] LIPASE 2019-02-17 17:52:00 Luis E [facility] CBC W/PLT COUNT & AUTO 2019-02-17 17:52:00 Luis E [facility] WET PREP 2019-02-17 17:45:00 Luis E [facility] CRITICAL CARE 2019-02-17 16:41:31 Luis E [facility] Plan of Care Planned Activity Planned Date Details Comments Source Future Scheduled 2019-10-30 INFLUENZA VACCINE Navi merrill Evangelical Test 00:00:00 [code = INFLUENZA VACCINE] Future Scheduled 2010 65+ PNEUMOCOCCAL [place] [employer] Test 00:00:00 VACCINE (1 of 1 - PPSV23) [code = 65+ PNEUMOCOCCAL VACCINE (1 of 1 - PPSV23)] Future Scheduled 1995-12-31 BREAST CANCER [facility] thodist Test 00:00:00 SCREENING [code = BREAST CANCER SCREENING] Future Scheduled 1995-12-31 COLONOSCOPY SCREENING Ho dm [employer] Test 00:00:00 [code = COLONOSCOPY SCREENING] Future Scheduled 1995-12-31 SHINGLES VACCINES (#1) H jaiden [employer] Test 00:00:00 [code = SHINGLES VACCINES (#1)] Encounters Start End Encounter Admission Attending Care Care Encounter Source Date/Time Date/Time Type Type Clinicians Facility Department ID 2020-01-04 2020-01-04 [facility] 1.2.840.114 [id number] 00:00:00 00:00:00 Darlene Tineo 350.1.13.10 [place] 4.2.7.2.686 Professio [phone] [address] 2019-12-29 2019-12-29 [facility] 1.2.840.114 [id number] 00:00:00 00:00:00 Darlene Tineo 350.1.13.10 [place] 4.2.7.2.686 Professio [phone] [address] 2019-12-23 2019-12-23 Chantilly Henderson, [facility] 1.2.840.114 [id number] 00:00:00 00:00:00 Darlene Tineo 350.1.13.10 [place] 4.2.7.2.686 Professio [phone] [address] 2019-12-20 2019-12-20 [facility] 1.2.840.114 [id number] 00:00:00 00:00:00 Darlene Tineo 350.1.13.10 [place] 4.2.7.2.686 Professio [phone] [address] 2019-12-16 2019-12-16 Refill Gagandeep [facility] 1.2.840.114 [id number] 00:00:00 00:00:00 Kevon Tineo 350.1.13.10 [place] 4.2.7.2.686 Professio [phone] [address] 2019-12-16 2019-12-16 Refill Beatriz [facility] 1.2.840.114 [id number] 00:00:00 00:00:00 Darlene A [place] 350.1.13.10 [place] 4.2.7.2.686 Professio [phone] [address] 2019-12-16 2019-12-16 [facility] 1.2.840.114 [id number] 00:00:00 00:00:00 Darlene A [place] 350.1.13.10 [place] 4.2.7.2.686 Professio [phone] [address] 2019-12-13 2019-12-13 [facility] 1.2.840.114 [id number] 00:00:00 00:00:00 Darlene A [place] 350.1.13.10 [place] 4.2.7.2.686 Professio [phone] [address] 2019-11-15 2019-11-15 [facility] 1.2.840.114 7 [id number] 00:00:00 00:00:00 Darlene A [place] 350.1.13.10 [place] 4.2.7.2.686 Professio [phone] [address] 2019-11-10 2019-11-10 [facility] 1.2.840.114 7 [id number] 00:00:00 00:00:00 Darlene A [place] 350.1.13.10 [place] 4.2.7.2.686 Professio [phone] [address] 2019-11-04 2019-11-04 [facility] 1.2.840.114 7 [id number] 00:00:00 00:00:00 Darlene A Health 350.1.13.10 [place] 4.2.7.2.686 Professio [phone] [address] 2019-11-04 2019-11-04 Chantilly Henderson, [facility] 1.2.840.114 [id number] 00:00:00 00:00:00 Darlene A [place] 350.1.13.10 [place] 4.2.7.2.686 Professio [phone] [address] 2019-11-03 2019-11-03 Urgent Provider, [facility] [id number] 14:08:19 14:28:19 Care [facility] 350.1.13.10 Care [place] 4.2.7.2.686 Professio [phone] [place] [address] Office Building [facility] 2019-11-02 2019-11-02 Telephone [facility] 1.2.840.114 [id number] 00:00:00 00:00:00 Darlene Tineo 350.1.13.10 [place] 4.2.7.2.686 Professio [phone] [address] 2019-10-28 2019-10-28 Chantilly Henderson, [facility] 1.2.840.114 7 [id number] 00:00:00 00:00:00 Darlene Tineo 350.1.13.10 [place] 4.2.7.2.686 Professio [phone] [address] 2019-10-27 2019-10-27 [facility] 1.2.840.114 7 [id number] 00:00:00 00:00:00 Darlene Tineo 350.1.13.10 [place] 4.2.7.2.686 Professio [phone] [address] 2019-10-22 2019-10-22 [facility] 1.2.840.114 7 [id number] 00:00:00 00:00:00 Kevon Tineo 350.1.13.10 [place] 4.2.7.2.686 Professio [phone] [address] 2019-10-18 2019-10-18 [facility] 1.2.840.114 7 [id number] 00:00:00 00:00:00 Darleen Dwyerton 350.1.13.10 [place] 4.2.7.2.686 Professio [phone] [address] 2019-10-16 2019-10-16 Refill Gagandeep, [facility] 1.2.840.114 [id number] 00:00:00 00:00:00 Kevon Dwyerton 350.1.13.10 [place] 4.2.7.2.686 Professio [phone] nal [address] Building 2019-10-06 2019-10-06 Orders Doctor LUIS ARMANDO 1.2.840.114 [id number] 00:00:00 00:00:00 Only Unassigned, ROSI 350.1.13.10 [place] [facility] 4.2.7.2.686 [id number] 009 2019-09-30 2019-09-30 Telephone Pob1, Acute [facility] 1.2.840.114 [id number] 00:00:00 00:00:00 [facility] 350.1.13.10 [place] 4.2.7.2.686 Professio [phone] nal 044 Office Building One 2019-09-13 2019-09-13 Orders Doctor LUIS ARMANDO 1.2.840.114 [id number] 00:00:00 00:00:00 Only Unassigned, ROSI 350.1.13.10 [place] [facility] 4.2.7.2.686 [id number] 009 Results Test Description Test Time Test Comments Results Result Comments Source POC-Glucose meter 2019-02-19 07:36:00 Test Item Value Reference Range Interpretation Comme nts POC-Glucose Meter (test code = 81 mg/dL 70-110 : TESTED AT [facility] [address]) [facility] [address]: Physiatrist/Techni yosvany ID = [id number] for Shahana Hewitt Lab Interpretation (test code = Normal 83738-8) [facility] [id number] 07:36:00 Test Item Value Reference Range Interpretation Comments POC-GLUCOSE METER 81 mg/dL 70-110 : [facility] (test code = [address] [facility], 1538) [facility] [address]: Physiatrist/Techni yosvany ID = [id number] for Shahana Dietz RAD, CHEST, 1 VIEW, NON [id number] 00:12:00Reason for exam:->to verify tip of picc [...] 12:12 AMXR chest 1 view portable / [id number] 00:12:00Interface, External Ris In - 02/19/2019 12:14 [...] Signed: Erica Campoverde Verified Date/Time: 02/19/2019 00:12:27 [facility] [id number] 23:41:00 Test Item Value Reference Range Interpretation Comments POC-GLUCOSE METER 96 mg/dL 70-110 : TESTED A T [facility] [address] (BEAKER) (test code = [address]) [place] 739398: Physiatrist/Techni yosvany ID = [id number] for Doreen Randhawa POCT-GLUCOSE [id number] 08:55:00 Test Item Value Reference Range Interpretation Comments POC-GLUCOSE METER 76 mg/dL 70-110 : TESTED A T [facility] [address] (BEAKER) (test code = [address]) [place] [address]: Physiatrist/Techni yosvany ID = [id number] for Dyan Mukherjee Basic metabolic [id number] 05:09:00 Test Item Value Reference Range Interpretation Comments Sodium (test code = 140 meq/L 385-389 8021-2) Potassium (test code = 3.5 meq/L 3.6-5.5 L 2823-3) Chloride (test code = 108 meq/L 98-106 H 2075-0) CO2 (test code = 24 meq/L -2027-9) BUN (test code = 12 mg/dL - 3094-0) Creatinine (test code = 0.79 mg/dL 0.5-1.2 2160-0) Glucose (test code = 82 mg/dL 70-110 2345-7) Calcium (test code = 8.8 mg/dL 8.5-10.5 73050-5) EGFR (test code = 86 mL/min/1.73 [place] [address]-7) NOT ACCURATE CREATININE CLEARANCE IN PREDICTING GLOMERULAR FILTRATION RATE . ESTIMATED GFR I S NOT APPLICABLE FOR DIALYSIS PATIEN TS. Lab Interpretation Abnormal (test code = 32691-3) [facility] METABOLIC [id number] 05:09:00 Test Item Value Reference Range Interpretation [...] NOT APPLICABLE FOR DIALYSIS PATIEN TS. Lipid [id number] 05:08:00 Test Item Value Reference Range Interpretation Comments Triglycerides (test 46 mg/dL code = 2571-8) Cholesterol (test code 90 mg/dL = 2093-3) HDL (test code = 44 mg/dL 5-9) LDL Calculated (test 37 mg/dL code = 11174-2) JAREN (test code = JAREN) Triglyceride Reference Range: Low Risk <150 Borderline 150-199 High Risk 200-499 Very High Risk >=500 Cholesterol Reference Range: Low Risk <200 Borderline 200-239 High Risk >240 HDL Cholesterol Reference Range: Low Risk >=60 High Risk <40 LDL Cholesterol Reference Range: Optimal <100 Near Optimal 100-129 Borderline 130-159 High 160-189 Very High >=190 [facility] function [id number] 05:08:00 Test Item Value Reference Range Interpretation Comments Protein, Total (test code = 2885-2) 5.8 6.0- 8.5 gm/dL L Albumin (test code = 34449-3) 3.3 g/dL 3.5-5 L Total Bilirubin (test code = 0.4 mg/dL 0.1-1.2 1974-2) Bilirubin, Direct (test code = 0.2 mg/dL 0-0.4 1967-7) Alkaline Phosphatase (test code = 59 U/L 30-115 6768-6) AST (test code = 1920-8) 12 U/L 5-40 ALT (test code = 1742-6) 5 U/L 5-50 Lab Interpretation (test code = Abnormal 13271-2) [facility] Hospital[facility]IP[facility] [id number] 05:08:00 Test Item Value Reference Range Interpretation [...] 130-159 High 160-189 Very High >=190HEPATIC FUNCTION [id number] 05:08:00 Test Item Value Reference Range Interpretation [...] code = 5 U/L 5-50 347) Hemoglobin [id number] 05:02:00 Test Item Value Reference Range Interpretation Comments Hemoglobin A1C (test code = 4548-4) 8.6 % 4.3-6.1 H Lab Interpretation (test code = Abnormal 74703-1) [facility] HospitalHEMOGLOBIN [id number] 05:02:00 Test Item Value Reference Range Interpretation Comments HEMOGLOBIN A1C (BEAKER) (test code = 8.6 % 4.3-6.1 H 368) CBC with platelet count + automated [id number] 04:47:00 Test Item Value Reference Range Interpretation [...] K/CU MM L MPV (test code = 89346-8) 11.0 fL 6-11.5 nRBC (test code = [...] 2801) Lab Interpretation (test code = Abnormal 36977-0) [facility] W/PLT COUNT & AUTO [id number] 04:47:00 Test Item Value Reference Range Interpretation [...] PERCENT (BEAKER) (test code = 2801) POCT-GLUCOSE [id number] 22:56:00 Test Item Value Reference Range Interpretation Comments POC-GLUCOSE METER 95 mg/dL 70-110 : TESTED A T [facility] (BEAKER) (test code = [address], 15[address]) [facility] 77 [address]: Physiatrist/Techni yosvany ID = [id number] for Jax berry Nehal CT, [id number] 18:58:00Reason for exam:->VAGINAL DISCHARGEWhat is the patient's [...] Schultz MDReport Verified Date/Time: 18:58:34 Reading Location: [facility] B1 C013W Consult Reading Room CT abdomen pelvis with IV [id number] 18:58:00Interface, External Ris In - 02/17/2019 7:00 [...] MDReport Verified Date/Time: 02/17/2019 18:58:34 Reading Location: [facility] B1 C013W Consult Reading [facility] 18:20[facility]00 Test Item Value Reference Range Interpretation Comments Lipase (test code = 3040-3) 6 U/L 6-51 Lab Interpretation (test code = Normal 78829-1) [facility]2019-11-20 18:20:00 Test Item Value Reference Range Interpretation Comments LIPASE (BEAKER) (test code = 749) 6 U/L 6-51 BASIC METABOLIC [id number] 18:20:00 Test Item Value Reference Range Interpretation [...] TO CALCULA TE ESTIMATED GFR. HEPATIC FUNCTION [id number] 18:19:00 Test Item Value Reference Range Interpretation [...] (test code = 5 U/L 5-50 347) PT/[id number] 18:11:00 Test Item Value Reference Range Interpretation [...] Output) Lab Interpretation Abnormal (test code = 08674-3) [facility] HospitalPROTHROMBIN TIME/[id number] 18:11:00 Test Item Value Reference Range Interpretation [...] Information (Auto Output)CBC W/PLT COUNT & AUTO [id number] 18:01:00 Test Item Value Reference Range Interpretation [...] (BEAKER) (test code = 2801) Wet prep, [id number] 17:57:00 Test Item Value Reference Range Interpretation Comments WBC - wet prep (test Moderate white blood code = 94318-1) cells seen Clue cells - wet prep No clue cells seen (test code = 78678-8) Yeast - wet prep (test No budding yeast seen code = 75677-9) Trichomonas - wet prep No Trichomonas seen (test code = 6565-6) Bacteria - wet prep Few bacteria seen (test code = 25025-8) [facility] HospitalWET [id number] 17:57:00 Test Item Value Reference Range Interpretation [...] seen (BEAKER) (test code = 532) CRITICAL [id number] 16:41:31Anabela Kimbrough MD 02/18/2019 6:53 AMCritical CarePerformed [...] this patient from another provider of my specialty.[facility]
--- OUTSIDE RECORDS SUMMARY | 2020-01-07 05:34 | XMS REPORT | Summary of Care ---
:1945 Author Organization [facility] Address [address] [place] [address] Care Team Providers Name Role Phone Katie Henderson MD Primary Care Provider Leah Poon Hydrostatic Tester Sammi Eason Insurance Hmo Reason for Visit Reason Comments Forms Samara Bland Encounter Details Date Type Department Care Team Description 10/18/2019 Telephone [facility] Pediatric Matilde Henderson Forms (Freestyle and Adult Primary A, MD Bland) Care- [address], [address] [place] [address] [place], [place] [phone] [address] [phone] Allergies Active Allergy Reactions Severity Noted Date [...] (peripheral artery disease), Coronary artery disease involving [place] coronary artery of [place] heart without angina pectoris GLIPIZIDE 10 mg [...] trigger Dyslipidemia 05/12/2019 Coronary artery disease involving [place] coronary brian ry of [place] heart 05/12/2019 without angina pectoris PAD (peripheral [...] Added automatically from request for kinsey sargent [id number] Urine incontinence 10/07/2018 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 BOX Medicare A & B 2 [id number] [place] [address] [facility] MEDICAID OF xxxxxxxxx 2018-Presen [phone] [address] Medicaid [place] t 0 [id number] [place] [address] documented as of this encounter Advance Directives Name Relationship Healthcare Agent Communication Relationship Jose Guerrier Child Primary healthcare agent [email or web address] Obdulio Samson [facility] [place] agent (Mobile)
--- OUTSIDE RECORDS SUMMARY | 2020-01-07 05:35 | XMS REPORT | Summary of Care ---
:1945 Author Organization [facility] Address [address] [place] [address] Care Team Providers Name Role Phone Katie Henderson MD Primary Care Provider Leah Poon Cutter Tender Sammi Eason Insurance Hmo Reason for Visit Reason Comments Forms [employer] Encounter Details Date Type Department Care Team Description 10/27/2019 Telephone [facility] Pediatric Matilde Henderson Forms ([employer] ) and Adult Primary MD Katie Care- [address], [address] [place] [address] [place] [phone] [address] [phone] Allergies Active Allergy Reactions Severity Noted Date [...] (peripheral artery disease), Coronary artery disease involving [place] coronary artery of [place] heart without angina pectoris GLIPIZIDE 10 mg [...] trigger Dyslipidemia 05/12/2019 Coronary artery disease involving [place] coronary brian ry of [place] heart 05/12/2019 without angina pectoris PAD (peripheral [...] Added automatically from request for kinsey arie [id number] Urine incontinence 10/07/2018 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 BOX Medicare A & B 2 [id number] [place] [address] [facility] MEDICAID OF xxxxxxxxx 2018-Presen [phone] [address] Medicaid [place] t 0 [id number] [place] [address] documented as of this encounter Advance Directives Name Relationship Healthcare Agent Communication Relationship Jose Guerrier Child Primary healthcare agent [email or web address] Obdulio Samson [facility] agent (Mobile)
--- OUTSIDE RECORDS SUMMARY | 2020-01-07 05:35 | XMS REPORT | Summary of Care ---
:1945 Author Organization [facility] Address [address] [place] [address] Care Team Providers Name Role Phone Katie Henderson MD Primary Care Provider Leah Poon [employer] Sammi Eason Insurance Hmo Reason for Visit Reason Comments DME Encounter Details Date Type Department Care Team Description 10/22/2019 Telephone [facility] Pediatric and Kevon Aguilar MD DME Adult Primary Care- [address] [facility] [address] Tineo [facility] 205 [address] [place] [address] [address] [place] [address] [phone] Allergies Active Allergy Reactions Severity Noted Date [...] (peripheral artery disease), Coronary artery disease involving [place] coronary artery of [place] heart without angina pectoris GLIPIZIDE 10 mg [...] trigger Dyslipidemia 05/12/2019 Coronary artery disease involving [place] coronary brian ry of [place] heart 05/12/2019 without angina pectoris PAD (peripheral [...] Added automatically from request for kinsey arie [id number] Urine incontinence 10/07/2018 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 10/17/2017 mellitus Overgrown toenails 10/17/2017 Colon cancer 06/05/2017 Malignant neoplasm of colon, unspecified part of colon 05/06/2017 Overview: Added automatically from request for kinsey arie [id number] Colonic mass 03/14/2017 Overview: Added automatically from request for kinsey arie [id number] Vulvar intraepithelial neoplasia (CHASE) grade 3 017 [...] Office Visit Family Medicine Kevon Donis MD [address] [place] [address] Dr [place] [address] [phone] Health Maintenance Due Date Last Done Comments [...] BOX Medicare A & B nt 2 [id number] [place] [address] [facility] MEDICAID OF xxxxxxxxx 2018-Presen [phone] [address] Medicaid [place] t 0 [id number] [place] [address] documented as of this encounter Advance Directives Name Relationship Healthcare Agent Communication Relationship Jose Guerrier Child Primary healthcare agent [email or web address] Obdulio Samson [facility] agent (Mobile)
--- OUTSIDE RECORDS SUMMARY | 2020-01-07 05:35 | XMS REPORT | Summary of Care ---
:1945 Author Organization [facility] - [facility] Address [address] [place] [address] Care Team Providers Name Role Phone Katie Henderson MD Primary Care Provider Leah Poon Crawler Dragline Operator Sammi Eason Insurance Hmo Reason for Visit Reason Comments Forms Encounter Details Date Type Department Care Team Description 10/28/2019 Telephone [facility] Pediatric and Anne Henderson Forms Adult Primary Care- MD Tineo [address] [place] [address] [address] [place] [address] [place] [address] [phone] Allergies Active Allergy Reactions Severity Noted Date [...] (peripheral artery disease), Coronary artery disease involving [place] coronary artery of [place] heart without angina pectoris GLIPIZIDE 10 mg [...] trigger Dyslipidemia 05/12/2019 Coronary artery disease involving [place] coronary brian ry of [place] heart 05/12/2019 without angina pectoris PAD (peripheral [...] Added automatically from request for kinsey arie [id number] Urine incontinence 10/07/2018 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 10/17/2017 mellitus Overgrown toenails 10/17/2017 Colon cancer 06/05/2017 Malignant neoplasm of colon, unspecified part of colon 05/06/2017 Overview: Added automatically from request for kinsey arie [id number] Colonic mass 03/14/2017 Overview: Added automatically from request for kinsey arie [id number] Vulvar intraepithelial neoplasia (CHASE) grade 3 017 [...] Office Visit Family Medicine Kevon Donis MD [address] [place] [address] [place], [place] [address] [phone] Health Maintenance Due Date Last Done Comments [...] BOX Medicare A & B nt 2 [id number] RADHA RAMOS [id number] [facility] MEDICAID OF xxxxxxxxx 2018-Presen [phone] [address] Medicaid [place] t 0 [id number] [place] [address] documented as of this encounter Advance Directives Name Relationship Healthcare Agent Communication Relationship Jose Guerrier Child Primary healthcare agent [email or web address] Obdulio Samson [facility] agent (Mobile)
--- OUTSIDE RECORDS SUMMARY | 2020-01-07 05:36 | XMS REPORT | Summary of Care ---
:[address] [facility] Address [address] [place] [address] Care Team Providers Name Role Phone Katie Henderson MD Primary Care Provider Leah Poon Project Manager Senior Sammi Eason Insurance Hmo Reason for Visit Reason Comments Notification confirming fax received Encounter Details Date Type Department Care Team Description 11/04/2019 Telephone [facility] Family Darlene eHnderson otification Medicine - Rivka Wilson MD (confirming fax [address] [facility] [address] [facility] received) Drive [address] 775 [address] [phone] Allergies Active Allergy Reactions Severity Noted Date [...] (peripheral artery disease), Coronary artery disease involving [place] coronary artery of [place] heart without angina pectoris GLIPIZIDE 10 mg [...] trigger Dyslipidemia 05/12/2019 Coronary artery disease involving [place] coronary brian ry of [place] heart 05/12/2019 without angina pectoris PAD (peripheral [...] Added automatically from request for kinsey arie [id number] Urine incontinence 10/07/2018 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 elephone Encounter - Roberto Ludwig - 11/09/2019 6:35 AM CDTEmma Candido Guerrier is a 73 year old female Please review and close encounter Thank you Telephone Encounter - Jenny Byers - 11/05/2019 3:41 PM CDTIDA with [employer] is checking the below phone encounter. elephone Encounter - Mitali Garcia LVN - 11/04/2019 4:53 PM CDTrerouting elephone Encounter - Roberto Ludwig - 11/04/2019 4:36 PM CDTEmma Candido Guerrier is a 73 year old female Chioma is calling from [email or web address] requesting confirmation fx has been received for brace Chioma can be reached at [phone] Thank you documented in this encounter Plan of Treatment Date Type Specialty Care Team Description 01/10/2020 Office Visit Internal Medicine Demi Henderson MD [address] [address] 15 [phone] Health Maintenance Due Date Last Done Comments [...] Addre ss Type Group MEDICARE MEDICARE PART [id number] 2003-Prese [phone] [address] Medicare A & B 2 [id number] [place]HA [address] [facility] MEDICAID OF [id number] 2018-Presdipika [phone] [address] Medicaid [facility] 0 [id number] [place] [address] documented as of this encounter Advance Directives Name Relationship Healthcare Agent Communication Relationship Jose Guerrier [facility] Health Care Agent Obdulio Samson [facility] Agent (Mobile)
--- OUTSIDE RECORDS SUMMARY | 2020-01-07 05:36 | XMS REPORT | Summary of Care ---
:1945 Author Organization [facility] Address [address] [place] [address] Care Team Providers Name Role Phone Katie Henderson MD Primary Care Provider Leah Poon Retail Marketing Coordinator Sammi Eason Insurance Hmo Reason for Visit Reason Comments Forms Encounter Details Date Type Department Care Team Description 11/10/2019 Telephone [facility] Pediatric and Anne Henderson Forms Adult Primary Care- MD Tineo [address] [place] [address] [address] [place] [address] [place] [address] [phone] Allergies Active Allergy Reactions Severity Noted Date [...] (peripheral artery disease), Coronary artery disease involving [place] coronary artery of [place] heart without angina pectoris GLIPIZIDE 10 mg [...] trigger Dyslipidemia 05/12/2019 Coronary artery disease involving [place] coronary brian ry of [place] heart 05/12/2019 without angina pectoris PAD (peripheral [...] Added automatically from request for kinsey arie [id number] Urine incontinence 10/07/2018 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 elephone Encounter - Karolyn Olmos - 11/10/2019 4:56 PM CDTEmma Candido Guerrier is a 73 year old female [employer] is calling about forms that were sent on 10/27/2019. Please complete and fax back to [phone] signed by Karolyn Olmos at 11/10/2019 5:03 PM CDTdocumented in this encounter Plan of Treatment Date Type Specialty Care Team Description 01/10/2020 Office Visit Internal Medicine Demi Henderson MD [address] [address] 15 Health Maintenance Due Date Last Done [...] Addre ss Type Group MEDICARE MEDICARE PART [id number] 2003-Prese [phone] [address] Medicare A & B nt 2 [id number] LULU TALLULARADHA [phone] [facility] MEDICAID OF [id number] 2018-Presen [phone] [address] Medicaid [place] t 0 [id number] [place] [address] documented as of this encounter Advance Directives Name Relationship Healthcare Agent Communication Relationship Jose Guerrier [facility] Health Care Agent Obdulio Samson [facility] Agent (Mobile)
--- OUTSIDE RECORDS SUMMARY | 2020-01-07 05:36 | XMS REPORT | Summary of Care ---
:1945 Author Organization [facility] Address [address] [place] [address] Care Team Providers Name Role Phone Katie Henderson MD Primary Care Provider Leah Poon Chrome Plater Helper Sammi Eason Insurance Hmo Reason for Visit Reason Comments Rash All over. On her feet and ar ms the worse. Encounter Details Date Type Department Care Team Description 11/03/2019 Urgent Care [facility] Family Marley Gustafson, EMA [address] [address] Suspected 2019 Novel Coronavirus Infecti on (Primary Dx); Medicine - [place] Provider, [facility] Urgent Care Insect bite of forearm, unspecified late rality, initial encounter [address] [place] [address] Allergies Active Allergy Reactions Severity [...] (peripheral artery disease), Coronary artery disease involving [place] coronary artery of [place] heart without angina pectoris GLIPIZIDE 10 mg [...] trigger Dyslipidemia 05/12/2019 Coronary artery disease involving [place] coronary brian ry of [place] heart 05/12/2019 without angina pectoris PAD (peripheral [...] Added automatically from request for kinsey sargent [id number] Urine incontinence 10/07/2018 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 10/17/2017 mellitus Overgrown toenails 10/17/2017 Colon cancer 06/05/2017 Malignant neoplasm of colon, unspecified part of colon 05/06/2017 Overview: Added automatically from request for kinsey sargent [id number] Colonic mass 03/14/2017 Overview: Added automatically from request for kinsey sargent [id number] Vulvar intraepithelial neoplasia (CHASE) grade 3 017 [...] To relieve itching and swelling, use an hkje-jwq-jqlqcwl (OTC) hydrocortisone ointment or cream If you [...] following occur: Throat itching or swelling Wheezing Pint Please last reviewed this educational content on 09/28/201819999232-4097 [employer]. [address] [place] [address]. All rights reserved. 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 insulin use status 10/11/2016 Urinary incontinence Vulvar intraepithelial neoplasia (CHASE) grade 3 01/31/2017 Past Surgical History: Procedure Laterality Date COLONOSCOPY N/A 03/20/2017 Surgeon: Ashlee Lundy MD; Location: [facility] OR Location COLONOSCOPY N/A 11/20/2018 Surgeon: Felicita Pineda MD; Location: [facility] OR Location ESOPHAGOGASTRODUODENOSCOPY N/A 11/20/2018 Surgeon: Felicita Pineda MD; Location: [facility] OR Location HYSTERECTOMY LAPAROSCOPIC ROBOTIC ASSISTED COLECTOMY 06/04/2017 LAPAROSCOPIC ROBOTIC ASSISTED HEMICOLECTOMY N/A 06/04/2017 Surgeon: Ashlee Lundy MD; Location: [facility] OR Julián REMOVAL OF SINGLE TOE,EACH STENT VULVAR BIOPSY (SHX) N/A 06/04/2017 Surgeon: Anoop De Luna; Location: [facility] OR [facility] Social History Socioeconomic History Marital status: Spouse [...] file Gets together: Not on file Attends adventism service: Not on file Active member of [...] we would like you to contact the [facility] at [phone] or toll free to talk with a [...] (74.8 kg) Height: 5' (1.524 m) [id number] [address] All Vitals taken, allergies and all [...] Addre ss Type Group MEDICARE MEDICARE PART [id number] 2003-Prese [phone] [address] Medicare A & B nt 2 [id number] [place] [address] [facility] MEDICAID OF [id number] 2018-Presen [phone] [address] Medicaid [place] t 0 [id number] [place] [address] (Home) [place] [address] documented as of this encounter Advance Directives Name Relationship Healthcare Agent Communication Relationship Jose Guerrier Child Health Care Agent Obdulio Rey Nephliza [facility] [phone] Agent (Mobile) "
--- OUTSIDE RECORDS SUMMARY | 2020-01-07 05:37 | XMS REPORT | Summary of Care ---
:1945 Author Organization [facility] Address [address] [place] [address] Care Team Providers Name Role Phone Katie Henderson MD Primary Care Provider Leah Poon Glass Deposition Tender Sammi Eason Insurance Hmo Reason for Visit Reason Comments Forms Encounter Details Date Type Department Care Team Description 11/15/2019 Telephone [facility] Pediatric and Anne Henderson Forms Adult Primary Care- MD Tineo [address] [place] [address] [address] [place] [address] [place] [address] [phone] Allergies Active Allergy Reactions Severity Noted Date [...] (peripheral artery disease), Coronary artery disease involving [place] coronary artery of [place] heart without angina pectoris GLIPIZIDE 10 mg [...] trigger Dyslipidemia 05/12/2019 Coronary artery disease involving [place] coronary brian ry of [place] heart 05/12/2019 without angina pectoris PAD (peripheral [...] Added automatically from request for kinsey arie [id number] Urine incontinence 10/07/2018 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 10/17/2017 mellitus Overgrown toenails 10/17/2017 Colon cancer 06/05/2017 Malignant neoplasm of colon, unspecified part of colon 05/06/2017 Overview: Added automatically from request for kinsey arie [id number] Colonic mass 03/14/2017 Overview: Added automatically from request for kinsey arie [id number] Vulvar intraepithelial neoplasia (CHASE) grade 3 017 [...] Bryson - 11/15/2019 11:17 AM CDTMarie from [employer] is calling to check the status of the forms that were faxed. Doreen is stating that they are needing chart notes along with the medical records, and is requesting a call back. documented in this encounter Plan of Treatment Date Type Specialty Care Team Description 01/10/2020 Office Visit Internal Medicine Demi Henderson MD [address] [place] [address] 15 [phone] Health Maintenance Due Date Last Done Comments [...] Addre ss Type Group MEDICARE MEDICARE PART [id number] 2003-Prese [phone] [address] Medicare A & B nt 2 [id number] [place] [address] [facility] MEDICAID OF [id number] 2018-Presdipika [phone] [address] Medicaid [place] t 0 [id number] [place] [address] documented as of this encounter Advance Directives Name Relationship Healthcare Agent Communication Relationship Jose Guerrier [facility] Health Care Agent [email or web address] Obdulio Samson [facility] [phone] Agent (Mobile)
--- OUTSIDE RECORDS SUMMARY | 2020-01-07 05:37 | XMS REPORT | Summary of Care ---
:1945 Author Organization [facility] Address [address] [place] [address] Care Team Providers Name Role Phone Katie Henderson MD Primary Care Provider Leah Poon Household Chores Sammi Eason Insurance Hmo Reason for Visit Reason Comments Forms Encounter Details Date Type Department Care Team Description 12/13/2019 Telephone [facility] Pediatric and Anne Henderson Forms Adult Primary Care- MD Tineo [address] [place] [address] [address] [place] [address] [place] [address] [phone] Allergies Active Allergy Reactions Severity Noted Date [...] (peripheral artery disease), Coronary artery disease involving [place] coronary artery of [place] heart without angina pectoris GLIPIZIDE 10 mg [...] trigger Dyslipidemia 05/12/2019 Coronary artery disease involving [place] coronary brian ry of [place] heart 05/12/2019 without angina pectoris PAD (peripheral [...] Added automatically from request for kinsey arie [id number] Urine incontinence 10/07/2018 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 10/17/2017 mellitus Overgrown toenails 10/17/2017 Colon cancer 06/05/2017 Malignant neoplasm of colon, unspecified part of colon 05/06/2017 Overview: Added automatically from request for kinsey arie [id number] Colonic mass 03/14/2017 Overview: Added automatically from request for kinsey arie [id number] Vulvar intraepithelial neoplasia (CHASE) grade 3 017 [...] Bryson - 12/13/2019 4:04 PM CDTJuan from [email or web address] is calling back regarding the below encounter. elephone Encounter - Kristina Ward - 12/13/2019 10:05 AM CDTJugrace is calling from [email or web address] and is requesting an update on forms faxed on 11/14, matt stated they received chart notes but no complete forms, please call Matt back at [phone] signed by Kristina Ward at 12/13/2019 10:06 AM CDTdocumented in this encounter Plan of Treatment Date Type Specialty Care Team Description 01/10/2020 Office Visit Internal Medicine Demi Henderson MD [address] [place] [address] 15 [phone] Health Maintenance Due Date Last Done Comments [...] Addre ss Type Group MEDICARE MEDICARE PART [id number] 2003-Prese [phone] [address] Medicare A & B 2 [id number] [place] [address] [facility] MEDICAID OF [id number] 2018-Presen [phone] [address] Medicaid [place] t 0 [id number] [place] [address] documented as of this encounter Advance Directives Name Relationship Healthcare Agent Communication Relationship Jose Guerrier [facility] Health Care Agent Obdulio Samson [facility] [phone] Agent (Mobile)
--- OUTSIDE RECORDS SUMMARY | 2020-01-07 05:37 | XMS REPORT | Summary of Care ---
:1945 Author Organization [facility] Address [address] [place] [address] Care Team Providers Name Role Phone Katie Henderson MD Primary Care Provider Leah Poon Boring Machine Set Up Operator Sammi Eason Insurance Hmo Reason for Visit Reason Comments Referral/consult Encounter Details Date Type Department Care Team Description 11/04/[address] [facility] Pediatric Matilde Henderson, Referral/consult and Adult Primary Care- MD Tineo [address] [place] [address] [address] [address] [address] [place] [address] [place] [address] [phone] Allergies Active Allergy Reactions Severity Noted Date [...] (peripheral artery disease), Coronary artery disease involving [place] coronary artery of [place] heart without angina pectoris GLIPIZIDE 10 mg [...] trigger Dyslipidemia 05/12/2019 Coronary artery disease involving [place] coronary brian ry of [place] heart 05/12/2019 without angina pectoris PAD (peripheral [...] Added automatically from request for kinsey arie [id number] Urine incontinence 10/07/2018 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 10/17/2017 mellitus Overgrown toenails 10/17/2017 Colon cancer 06/05/2017 Malignant neoplasm of colon, unspecified part of colon 05/06/2017 Overview: Added automatically from request for kinsey arie 790963 Colonic mass 03/14/2017 Overview: Added automatically from request for kinsey arie [id number] Vulvar intraepithelial neoplasia (CHASE) grade 3 017 [...] Visit Internal Medicine Demi Henderson MD [address] [place] [address] 15 [phone] Health Maintenance Due Date Last Done Comments [...] Addre ss Type Group MEDICARE MEDICARE PART [id number] 2003-Prese [phone] [address] Medicare A & B nt 2 [id number] RADHA RAMOS [address] [facility] MEDICAID OF [id number] 2018-Presdipika [phone] [address] Medicaid [place] t 0 [id number] [place] [address] documented as of this encounter Advance Directives Name Relationship Healthcare Agent Communication Relationship Jose Guerrier Child Health Care Agent [email or web address] Obdulio Samson [facility] Agent (Mobile)
--- OUTSIDE RECORDS SUMMARY | 2020-01-07 05:37 | XMS REPORT | Summary of Care ---
:1945 Author Organization [facility] - [facility] Address [address] [place] [address] Care Team Providers Name Role Phone Katie Henderson MD Primary Care Provider Leah Poon Commercial Credit Reviewer Sammi Eason Insurance Hmo Reason for Referral (Routine) Status Reason Specialty Diagnoses / Referred By Referred To Procedures Contact Contact Authorized Wait Time for Neurology Diagnoses Memory problem Jaron Henderson, Patient Request Procedures CONSULT/REFERRAL NEUROLOGY Darlene Wilson MD Referring/Pcp [address] [place] [address] Prov Not I n [facility] [address] [place] [address] Reason for Visit Reason Comments Orders Encounter Details Date Type Department Care Team Description 11/02/2019 Telephone [facility] Pediatric and Anne Henderson Orders Adult Primary Care- Xenia [address] [place] [address] 146 [facility], [facility] [address] [address] [place] [address] [phone] Allergies Active Allergy Reactions Severity Noted Date [...] (peripheral artery disease), Coronary artery disease involving [place] coronary artery of [place] heart without angina pectoris GLIPIZIDE 10 mg [...] trigger Dyslipidemia 05/12/2019 Coronary artery disease involving [place] coronary brian ry of [place] heart 05/12/2019 without angina pectoris PAD (peripheral [...] Added automatically from request for kinsey sargent [id number] Urine incontinence 10/07/2018 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 10/17/2017 mellitus Overgrown toenails 10/17/2017 Colon cancer 06/05/2017 Malignant neoplasm of colon, unspecified part of colon 05/06/2017 Overview: Added automatically from request for kinsey sargent 120037 Colonic mass 03/14/2017 Overview: Added automatically from request for kinsey sargent 332107 Vulvar intraepithelial neoplasia (CHASE) grade 3 017 [...] times recently. Has not been seeing a band builder. Needs to be seen by us for refills on at least lyrica. Concernedto keep her on xarelto if falls, and need to find out if needs to be on xarelto usp. May need to refer to cardiology. Found out [facility] also has neuropsych clinic. Will refer to them, he reports [facility] next appointment is in December. To [facility] staff, please fax referral to [facility]. documented in this encounter Plan of Treatment Date Type Specialty Care Team Description 01/10/2020 Office Visit Internal Medicine Demi Henderson MD [address] [place] [address] 15 [phone] Health Maintenance Due Date Last Done Comments [...] Addre ss Type Group MEDICARE MEDICARE PART [id number] 2003-Presbreanna [phone] [address] Medicare A & B nt 2 [id number] [place] [address] [facility] MEDICAID OF [id number] 2018-Becky [phone] [address] Medicaid [place] t 0 [id number] [place] [address] documented as of this encounter Advance Directives Name Relationship Healthcare Agent Communication Relationship Jose Guerrier Child Health Care Agent Obdulio Samson [facility] Agent (Mobile)
--- OUTSIDE RECORDS SUMMARY | 2020-01-07 05:38 | XMS REPORT | Summary of Care ---
:1945 Author Organization [facility] - [facility] Address [address] [place] [address] Care Team Providers Name Role Phone Katie Henderson MD Primary Care Provider Leah Poon End User Support Specialist Sammi Eason Insurance Hmo Reason for Visit Reason Comments DME Encounter Details Date Type Department Care Team Description 12/23/2019 Telephone [facility] Pediatric and Anne Henderson DME Adult Primary Care- Ernul [address] [place] [address] [address] [place] [address] [place] [address] [phone] Allergies Active Allergy Reactions Severity Noted Date [...] (peripheral artery disease), Coronary artery disease involving samish coronary artery of samish heart without angina pectoris JANUVIA 25 mg [...] trigger Dyslipidemia 05/12/2019 Coronary artery disease involving samish coronary brian ry of samish heart 05/12/2019 without angina pectoris PAD (peripheral [...] Added automatically from request for kinsey sargent [id number] Urine incontinence 10/07/2018 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 10/17/2017 mellitus Overgrown toenails 10/17/2017 Colon cancer 06/05/2017 Malignant neoplasm of colon, unspecified part of colon 05/06/2017 Overview: Added automatically from request for kinsey arie [id number] Colonic mass 03/14/2017 Overview: Added automatically from request for kinsey arie [id number] 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 Medicare A & B nt 2 [id number] [place] [address] [facility] MEDICAID OF [id number] 2018-Presen [phone] [address] Medicaid [place] t 0 [id number] [place] [address] documented as of this encounter Advance Directives Name Relationship Healthcare Agent Communication Relationship Jose Guerrier [facility] Agent [email or web address] Obdulio Samson [facility] Agent (Mobile)
--- OUTSIDE RECORDS SUMMARY | 2020-01-07 05:38 | XMS REPORT | Summary of Care ---
:1945 Author Organization [facility] - [facility] Address [address] [place] [address] Care Team Providers Name Role Phone Katie Henderson MD Primary Care Provider Leah oPon Leasing Sales Consultant Sammi Eason Insurance Hmo Reason for Visit Reason Comments DME Knee brace Encounter Details Date Type Department Care Team Description 12/20/2019 Telephone [facility] Pediatric Matilde Henderson, DME (Knee brace) and Adult Primary Care- MD Tineo [address] [place] [address] [address] [place] [address] [place] [address] [phone] Allergies Active Allergy Reactions Severity Noted Date [...] (peripheral artery disease), Coronary artery disease involving [place] coronary artery of [place] heart without angina pectoris JANUVIA 25 mg [...] trigger Dyslipidemia 05/12/2019 Coronary artery disease involving [place] coronary brian ry of [place] heart 05/12/2019 without angina pectoris PAD (peripheral [...] Added automatically from request for kinsey arie [id number] Urine incontinence 10/07/2018 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 Henderson's box documented in this encounter Plan of Treatment Date Type Specialty Care Team Description 01/10/2020 Office Visit Internal Medicine Demi Henderson MD [address] [place] [address] 15 [phone] Health Maintenance Due Date Last Done Comments [...] Addre ss Type Group MEDICARE MEDICARE PART [id number] 2003-Prese [phone] Medicare A & B nt 2 [id number] [place] [address] [facility] MEDICAID OF [id number] 2018-Becky [phone] [address] Medicaid [place] t 0 [id number] [place] [address] documented as of this encounter Advance Directives Name Relationship Healthcare Agent Communication Relationship Jose Guerrier [facility] Health Care Agent [email or web address] Obdulio Samson [facility] Agent (Mobile)
--- OUTSIDE RECORDS SUMMARY | 2020-01-07 05:38 | XMS REPORT | Summary of Care ---
:1945 Author Organization [facility] - [facility] Address [address] [place] [address] Care Team Providers Name Role Phone Katie Henderson MD Primary Care Provider Leah Poon Solid State Tester Sammi Eason Insurance Hmo Reason for Visit Reason Comments Refill Request Encounter Details Date Type Department Care Team Description 12/16/2019 Refill [facility] Pediatric and Anne Henderson, Refill Request Adult Primary Care- MD Tineo [address] [place] [address] [address] [address] [address] [place] [address] [place] [address] [phone] Allergies Active Allergy Reactions Severity Noted Date [...] artery of [place] heart without angina pectoris JANUVIA 25 mg [...] Added automatically from request for kinsey sargent [id number] Urine incontinence 10/07/2018 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 10/17/2017 mellitus Overgrown toenails 10/17/2017 Colon cancer 06/05/2017 Malignant neoplasm of colon, unspecified part of colon 05/06/2017 Overview: Added automatically from request for kinsey sargent [id number] Colonic mass 03/14/2017 Overview: Added automatically from request for kinsey sargent [id number] Vulvar intraepithelial neoplasia (CHASE) grade 3 017 [...] Office Visit Internal Medicine Demi Henderson MD [address] [place] [address] 15 [phone] Health Maintenance Due Date Last Done Comments [...] Addre ss Type Group MEDICARE MEDICARE PART [id number] 2003-Prese [phone] [address] Medicare A & B 2 [id number] [place] [address] [facility] MEDICAID OF [id number] 2018-Presen [phone] Medicaid [place] t 0 [id number] [place] [address] documented as of this encounter Advance Directives Name Relationship Healthcare Agent Communication Relationship Jose Guerrier [facility] Health Care Agent Obdulio Samson [facility] [phone] Agent (Mobile)
--- OUTSIDE RECORDS SUMMARY | 2020-01-07 05:38 | XMS REPORT | Summary of Care ---
:1945 Author Organization [facility] - [facility] Address [address] [place] [address] Care Team Providers Name Role Phone Katie Henderson MD Primary Care Provider Leah Poon Concrete Rod Buster Sammi Eason Insurance Hmo Reason for Visit Reason Comments Forms Encounter Details Date Type Department Care Team Description 12/16/2019 Telephone [facility] Pediatric and Anne Henderson Forms Adult Primary Care- MD Tineo [address] [place] [address] [address] [place] [address] [place] [address] [phone] Allergies Active Allergy Reactions Severity Noted Date [...] (peripheral artery disease), Coronary artery disease involving [place] coronary artery of [place] heart without angina pectoris JANUVIA 25 mg [...] trigger Dyslipidemia 05/12/2019 Coronary artery disease involving [place] coronary brian ry of [place] heart 05/12/2019 without angina pectoris PAD (peripheral [...] Added automatically from request for kinsey arie [id number] Urine incontinence 10/07/2018 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 Telephone Encounter - Kristina Ward - 12/17/2019 9:33 AM CDTJuan from [employer] is calling and is requesting an update on encounter below. elephone Encounter - Kristina Ward - 12/16/2019 1:54 PM CDTJuan from [employer] is calling and is requesting to know if fax orders they sent in have been signed, please call Matt back at [phone] signed by Kristina Ward at 12/16/2019 1:56 PM CDTdocumented in this encounter Plan of Treatment Date Type Specialty Care Team Description 01/10/2020 Office Visit Internal Medicine Demi Henderson MD [address] [place] [address] 15 [phone] Health Maintenance Due Date Last Done Comments [...] Addre ss Type Group MEDICARE MEDICARE PART [id number] 2003-Prese [phone] [address] Medicare A & B 2 [id number] [place] [address] [facility] MEDICAID OF [id number] 2018-Presen [phone] Medicaid [place] t 0 [id number] [place] [address] documented as of this encounter Advance Directives Name Relationship Healthcare Agent Communication Relationship Jose Guerrier Child Health Care Agent [email or web address] Obdulio Samson [facility] Care Agent (Mobile)
--- OUTSIDE RECORDS SUMMARY | 2020-01-07 05:38 | XMS REPORT | Summary of Care ---
:1945 Author Organization [facility] - [facility] Address [address] [place] [address] Care Team Providers Name Role Phone Katie Henderson MD Primary Care Provider Leah Poon Wall Washer Sammi Eason Insurance Hmo Reason for Visit Reason Comments Refill Request Encounter Details Date Type Department Care Team Description 12/16/2019 Refill [facility] Pediatric and Kevon Aguilar MD Refill Request Adult Primary Care- [address] [facility] [address] Tineo [facility] [address] [place] [address] [address] [place] [address] [phone] Allergies Active Allergy Reactions Severity Noted Date [...] (peripheral artery disease), Coronary artery disease involving [place] coronary artery of [place] heart without angina pectoris GLIPIZIDE 10 mg [...] trigger Dyslipidemia 05/12/2019 Coronary artery disease involving [place] coronary brian ry of [place] heart 05/12/2019 without angina pectoris PAD (peripheral [...] Added automatically from request for kinsey sargent [id number] Urine incontinence 10/07/2018 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 10/17/2017 mellitus Overgrown toenails 10/17/2017 Colon cancer 06/05/2017 Malignant neoplasm of colon, unspecified part of colon 05/06/2017 Overview: Added automatically from request for kinsey sargent [id number] Colonic mass 03/14/2017 Overview: Added automatically from request for kinsey sargent [id number] 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 Medicare A & B nt 2 [id number] [place] [address] [facility] MEDICAID OF [id number] 2018-Becky [phone] [address] Medicaid [place] t 0 [id number] [place] [address] documented as of this encounter Advance Directives Name Relationship Healthcare Agent Communication Relationship Jose Guerrier [facility] Health Care Agent Obdulio Samson [facility] Agent (Mobile)
--- OUTSIDE RECORDS SUMMARY | 2020-01-07 05:39 | XMS REPORT | Summary of Care ---
:[address] [facility] - [facility] Address [address] [place] [address] Care Team Providers Name Role Phone Katie Henderson MD Primary Care Provider Leah Poon Information Technology Analyst Sammi Eason Insurance Hmo Reason for Visit Reason Comments Orders Encounter Details Date Type Department Care Team Description 12/29/2019 Telephone [facility] Pediatric and Anne Henderson Orders Adult Primary Care- MD Tineo [address] [place] [address] [address] [place] [address] [place] [address] [phone] Allergies Active Allergy Reactions Severity Noted Date [...] artery disease), Coronary artery disease involving [place] coronary artery of [place] heart without angina pectoris JANUVIA 25 mg [...] Dyslipidemia 05/12/2019 Coronary artery disease involving [place] coronary brian ry of [place] heart 05/12/2019 without angina pectoris PAD (peripheral [...] Added automatically from request for kinsey sargent [id number] Urine incontinence 10/07/2018 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 documented in this encounter Plan of Treatment Date Type Specialty Care Team Description 01/10/2020 Office Visit Internal Medicine Demi Henderson MD [address] [place] [address] 15 [phone] Health Maintenance Due Date Last Done Comments [...] Addre ss Type Group MEDICARE MEDICARE PART [id number] 2003-Prese [phone] [address] Medicare A & B 2 [id number] [place] [address] [facility] MEDICAID OF [id number] 2018-Presen [phone] [address] Medicaid [place] t 0 [id number] [place] [address] documented as of this encounter Advance Directives Name Relationship Healthcare Agent Communication Relationship Jose Guerrier Child Health Care Agent [email or web address] Obdulio Samson Agent (Mobile)
--- OUTSIDE RECORDS SUMMARY | 2020-01-07 05:39 | XMS REPORT | Summary of Care ---
:1945 Author Organization [facility] - [facility] Address [address] [place] [address] Care Team Providers Name Role Phone Katie Henderson MD Primary Care Provider Leah Poon Machine Specialist Sammi Eason Insurance Hmo Reason for Visit Reason Comments Orders Encounter Details Date Type Department Care Team Description 01/04/2020 Telephone [facility] Pediatric and Anne Henderson Orders Adult Primary Care- MD Tineo [address] [place] [address] [address] [place] [address] [place] [address] [phone] Allergies Active Allergy Reactions Severity Noted Date Comments Morphine Hallucinations 06/28/2016 documented as of this encounter (statuses as of 01/05/2020) Medications Medication Sig Dispensed Refills Start Date [...] (peripheral artery disease), Coronary artery disease involving [place] coronary artery of [place] heart without angina pectoris JANUVIA 25 mg [...] as of this encounter (statuses as of 01/05/2020) Active Problems Problem Noted Date Gastrointestinal hemorrhage with hematemesis 0 Non-seasonal allergic rhinitis due to pollen 0 Non-seasonal allergic rhinitis, unspecified trigger Dyslipidemia 05/12/2019 Coronary artery disease involving [place] coronary brian ry of [place] heart 05/12/2019 without angina pectoris PAD (peripheral [...] Added automatically from request for kinsey sargent [id number] Urine incontinence 10/07/2018 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 10/17/2017 mellitus Overgrown toenails 10/17/2017 Colon cancer 06/05/2017 Malignant neoplasm of colon, unspecified part of colon 05/06/2017 Overview: Added automatically from request for kinsey arie [id number] Colonic mass 03/14/2017 Overview: Added automatically from request for kinsey arie [id number] 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 S/P hysterectomy 10/29/2016 Vulvar lesion 10/29/2016 Type 2 diabetes mellitus with complication 10/11/2016 Diffuse pain 10/11/2016 Near syncope 06/28/2016 UTI (urinary tract infection) 05/24/2016 Generalized abdominal pain 05/24/2016 documented as of this encounter (statuses as of 01/05/2020) Resolved Problems Problem Noted Date Resolved Date Hematuria 10/29/2016 10/29/2016 documented as of this encounter (statuses as of 01/05/2020) Immunizations Name Administration Dates Next Due Influenza [...] Notes Telephone Encounter - Vandana Sexton - 01/05/2020 8:16 AM CDTAttempted to call patient, n/a, left message to call clinic back. SHELLIE:07/23/2019. Patient has not followed up with either providers, has no showed and we can not reach her to confirmrequested DME, we are not able to get DME Signed by provider. Vandana Sexton 01/05/2020 8:16 AM elephone Encounter - Ave Bryson - 01/04/2020 3:06 PM GUERDATJugrace from [employer] is calling back to check on the forms that were faxed for the patients DME supplies. Matt is requesting a call back. documented in this encounter Plan of Treatment Date Type Specialty Care Team Description 01/10/2020 Office Visit Internal Medicine Demi Henderson MD [address] [place] [address] 15 [phone] Health Maintenance Due Date Last Done Comments [...] Addre ss Type Group MEDICARE MEDICARE PART [id number] 2003-Prese [phone] [address] Medicare A & B nt 2 [id number] [place] [address] [facility] MEDICAID OF [id number] 2018-Presdipika [phone] [address] Medicaid [place] t 0 [id number] [place] [address] documented as of this encounter Advance Directives Name Relationship Healthcare Agent Communication Relationship Jose Guerrier [facility] Health Care Agent [email or web address] Obdulio Samson [facility] Agent (Mobile)
--- NOTE | 2020-01-07 08:29 | RAD REPORT ---
EXAM DESCRIPTION: RAD - Shoulder Right 2 View - 01/06/2020 11:26 pm CLINICAL HISTORY: PAIN COMPARISON: Shoulder Right 2 View dated 10/20/2015; Thorax Wo Con dated 01/06/2020 FINDINGS: Diffuse osteopenia is seen. Mild glenohumeral and AC joint degenerative changes are presen t. No gross fracture appreciated. Examination is limited by motion artifact.
--- NOTE | 2020-01-07 08:29 | RAD REPORT ---
EXAM DESCRIPTION: RAD - Chest Single View - 01/06/2020 11:26 pm CLINICAL HISTORY: BLUNT CHEST TRAUMA Chest pain. COMPARISON: Chest Single View dated 01/02/2020; Chest Single View dated 08/25/2019; Chest Single View dated 08/21/2019; Chest Single View dated 02/22/2019 FINDINGS: Portable technique limits examination quality. Mild interstitial prominence is present bilaterally. No focal infiltrate detected the suggest pneumon ia. The heart is upper limit normal in size. No displaced fractures.
--- NOTE | 2020-01-07 10:21 | RAD REPORT ---
EXAM DESCRIPTION: Thorax Wo Con CLINICAL HISTORY: 74 years Female PAIN COMPARISON: None TECHNIQUE: Images were obtained in axial, sagittal, and coronal planes. No intravenous contrast was administered. This exam was performed according to our departmental dose-optimization program which includes use of Automated Exposure Control, adjustment of the mA and/or kV according to patient size and/or use o f iterative reconstruction technique. FINDINGS: No dilatation aortic root. No pericardial or pleural effusions bilaterally. No adenopathy. Coronary artery calcification. Ill-defined air space attenuation lingula/inferior left upper lobe. Honeycombing peripheral right low er lobe. Additional airspace attenuation lower lobes bilaterally. No lung parenchymal nodules seen. N o pneumothorax. No acute osseous abnormality. Incompletely imaged shoulders bilaterally. IMPRESSION: Atelectatic change versus infiltrate or contusion involving the inferior left upper lobe / lingula. Findings consistent with moderate interstitial lung disease. Atelectatic change versus infiltrate or chronic change lower lobes bilaterally. No acute osseous abnormality however shoulders are incompletely imaged. Correlation with standard rad iographs of the shoulders would be suggested if clinical suspicion for acute bony abnormality persist s. Electronically signed by: Destiny Robles MD 01/07/2020 12:30 AM CDT Due to temporary technical issues with the PACS/Fluency reporting system, reports are being signed by the in house radiologist without review as a courtesy to ensure prompt reporting. The interpreting r adiologist is fully responsible for the content of the report.
--- NOTE | 2020-01-09 11:17 | EKG ---
Test Date: 2020-01-06 Test Time: 22:57:22 Squilgeer: BEENA MEASUREMENT RESULTS: Intervals: Rate: 71 VA: 162 QRSD: 144 QT: 418 QTc: 454 [place]: P: 22 VA: 162 QRS: -61 T: 28 INTERPRETIVE STATEMENTS: Normal sinus rhythm Right bundle branch block Left anterior fascicular block Bifascicular block Abnormal ECG Compared to ECG 08/25/2019 22:15:20 No significant changes Electronically Signed On 01-09-20 11:14:04 CDT by Alexis Sam
== END 2020-01-07 02:14 | disposition home or self-care (01) ==
LOC: ER 22:25
DX: S20.212A Contusion of left front wall of thorax, initial encounter (principal); J98.11 Atelectasis; W19.XXXA Unspecified fall, initial encounter; Y93.89 Activity, other specified; Y92.89 Other specified places as the place of occurrence of the external cause; Z88.5 Allergy status to narcotic agent
CPT/HCPCS: 71045; 71250; 93005; 96372; 99284

== ENCOUNTER 2020-03-13 19:27 | Emergency (ER) | payer OTHER ==
--- OUTSIDE RECORDS SUMMARY | 2020-03-13 19:29 | XMS REPORT | Clinical Summary ---
:1945 Author Organization [facility] Address [address] [place] [address] Care Team Providers Name Role Phone Asked, Pcp Primary Care Provider Unavailable Allergies Active Allergy Reactions Severity Noted Date Comments Morphine 08/02/2016 Medications Not on file Active Problems Not on file Encounters Date Type Specialty Care Team Description 12/14/2019 Travel 12/10/2019 Travel 11/12/2019 Travel 11/11/2019 Travel 11/09/2019 Travel after 03/13/2019 Surgical History Surgery Date Site/Laterality Comments TOE [...] INFLUENZA VACCINE 10/30/2019 Results Not on fileafter 03/13/2019 Insurance Payer Benefit Plan / Subscriber ID Effective Dates Phone Addre ss Type Group MEDICARE MEDICARE PART A [id number] 2003-Present JOSE F AIKEN Medicare AND B MEDICAID MEDICAID [id number] 2011-Present Med icaid Advance Directives For more information, please contact: [phone] Type Date Recorded Patient Nutrition Professor Explanati on Advance Directives, Living Will and Medical Power of Calcine Furnace Tender
--- OUTSIDE RECORDS SUMMARY | 2020-03-13 19:30 | XMS REPORT | Continuity of Care Document ---
:1945 Author Organization [facility] t Address [address] [place] [address] Care Team Providers Name Role Phone Asked, Pcp Primary Care Physician Unavailable Katie Henderson MD Attending Clinician Doctor Unassigned, Name Attending Clinician Unavailable RAFAEL RODRIGUEZ Attending Clinician Unavailable DUNG ENRIQUEZ Admitting Clinician Unavailable Payers Payer Name Policy Type Policy Effective Date Expiration Date Sour ce Number MEDICAREMEDICARE PART [id number] 2003 Jorgito Wilson AND 00:00:00 [facility] [id number] 2002 [place] MEDICAIDMEDICAIDxxxxx [id number] 2011 Guera flores 9781 2011-Present 00:00:00 [place] edmarisaid Problems Condition Condition Condition Status Onset Resolution [...] Start Date Stop Date Quantity Comments Source History [facility] - Alcohol Std Drinks Medica l Center History [facility] - Alcohol Binge Medical Marco Antonio ter Sex Assigned At [facility] Tobacco use and 2019-02-17 2019-02-17 Never used [facility] Elyse kes - exposure 00:00:00 00:00:00 [facility] Alcohol intake 2019-02-17 2019-02-17 [facility]00 non-drinker of Medical Ce nter alcohol (finding) History [facility] 2019-02-17 2019-02-17 [address] [facility] - Alcohol Frequency 00:00:00 00:00:00 Medical Center Smoking Status Start Date Stop Date Source [facility] Medications Ordered Filled Start Stop Current Ordering Indication Dosage Frequency Signature Comments Components Source Medication Medication Date Date Medication? Clinician (SIG) Name Name metroNIDAZO 2018-03 Yes 500mg Take [address] LE (FLAGYL) 1-22 mg by [facility] - 500 MG 11:18: mouth Medical tablet 41 every 8 Center (eight) hours. ondansetron 2018-03 Yes Take by [facility] (ZOFRAN) 4 1-22 mouth [facility] - mg/5 mL 11:18: once. Medical solution 41 Center acetaminoph 2018-03 Yes 650mg Take [address] en 1-22 mg by [facility] - (TYLENOL) 11:18: mouth Medical 325 MG 41 every 6 Center tablet (six) hours as needed for Pain. aspirin 81 2018-03 2019- No 81mg QD Take [address] MG EC -22 12-22 tablet (81 [facility] - tablet 00:00: 23:59 mg total) Medic al 00 :00 by mouth Center daily for 30 days. atorvastati 2018-03- No 10mg QD Take [address] n (LIPITOR) 04-21- tablet (10 L ukes - 10 MG 00:00: 23:59 mg total) Medica l tablet 00 :00 by mouth Center daily for 30 days. famotidine 2018-03- No 20mg Q.5D Take [address] (PEPCID) 20 04-21- tablet (20 L ukes - MG tablet [...] No 20mg Take [address] [facility] (XARELTO) 04-21- tablet (20 [facility] - 20 mg Tab 00:00: 23:59 mg total) Me dical tablet 00 :00 by mouth Center daily with dinner for 30 days. SITagliptin 2018-03- No 50mg QD Take [address] (JANUVIA) 04-21- tablet (50 [facility] - 50 MG 00:00: 23:59 mg total) Medica l tablet 00 :00 by mouth Center daily for 30 days. Procedures This patient has no known procedures. Plan of Care Planned Activity Planned Date Details Comments Source Future Scheduled 2019-11-30 INFLUENZA VACCINE (#1) [facility] Test 00:00:00 [code = INFLUENZA Medical Ce nter VACCINE (#1)] Future Scheduled 2019-10-30 INFLUENZA VACCINE [place] [facility] Test 00:00:00 [code = INFLUENZA VACCINE] Future Scheduled 2010 65+ PNEUMOCOCCAL [facility] Test 00:00:00 VACCINE (1 of 1 - PPSV23) [code = 65+ PNEUMOCOCCAL VACCINE (1 of 1 - PPSV23)] Future Scheduled 2010 PNEUMOCOCCAL 65+ YRS [facility] - Test 00:00:00 (1 of 1 - Medical Center [id number] PCV13) [code = PNEUMOCOCCAL 65+ YRS (1 of 1 - [id number] PCV13)] Future Scheduled 2004-03-[address] [facility] - Test 00:00:00 WELLNESS (YEAR 2 or Medical Center FIRST YEAR if no IPPE) [code = MEDICARE ANNUAL WELLNESS (YEAR 2 or FIRST YEAR if no IPPE)] Future Scheduled 1995-12-31 BREAST CANCER [facility] 00:00:00 SCREENING [code = BREAST CANCER SCREENING] Future Scheduled 1995-12-31 COLONOSCOPY SCREENING [place] [facility] Test 00:00:00 [code = COLONOSCOPY SCREENING] Future Scheduled 1995-12-31 SHINGLES VACCINES (#1) [place] [facility] Test 00:00:00 [code = SHINGLES VACCINES (#1)] Future Scheduled [address] [facility] - Test 00:00:00 [facility] breast (procedure) [code = 197223882] Future Scheduled [address] [facility] - Test 00:00:00 [facility] colon (procedure) [code = 975858681] Encounters Start End Encounter Admission Attending Care Care Encounter Source Date/Time Date/Time Type Type Clinicians Facility Department ID 2020-03-09 2020-03-09 MELODY Milton [id number] 00:00:00 00:00:00 Darlene Tineo [id number] [place] 4.2.7.2.686 Tobi [id number] [address] 2020-03-06 2020-03-06 Orders Doctor DRUÁN [id number] 00:00:00 00:00:00 Only Unassigned, ROSI [id number] [facility] [id number] [id number] 2020-03-06 2020-03-06 Telephone Beatriz RUST [id number] 00:00:00 00:00:00 Darlene Tineo [id number] [place] 4.2.7.2.686 Professio [id number] [address] 2020-03-02 2020-03-02 Telephone Henderson RUST [id number] 00:00:00 00:00:00 Darlene Tineo [id number] [place] 4.2.7.2.686 Profаннаio [id number] [address] Results Test Description Test Time Test Comments Results Result Comments Source POCT-GLUCOSE METER 2019-02-19 07:36:00 Test Item Value Reference Range Interpretation Comme [facility] POC-GLUCOSE METER ([employer]) 81 mg/dL 70-110 : TESTED AT [address] (test code = 1538) [facility] [address]: Medical Artist/Techni yosvany ID = [id number] for Shahana Hewitt RAD, CHEST, 1 VIEW, NON [id number] 00:12:00Reason for exam:->to verify tip of picc [...] Campoverde Verified Date/Time: 02/19/2019 00:12:27 12:12 AMPOCT-GLUCOSE [id number] 23:41:00 Test Item Value Reference Range Interpretation Comments POC-GLUCOSE METER 96 mg/dL 70-110 : TESTED A T [facility] [address] (BEAKER) (test code = [address], 15[address]) [facility] [address]: Medical Artist/Techni yosvany ID = [id number] for Doreen Randhawa POCT-GLUCOSE [id number] 08:55:00 Test Item Value Reference Range Interpretation Comments POC-GLUCOSE METER 76 mg/dL 70-110 : TESTED A T [facility] [address] (BEAKER) (test code = [address], 1538) [facility] 77 478: Medical Artist/Techni yosvany ID = [id number] for Dyan Mukherjee BASIC METABOLIC [id number] 05:09:00 Test Item Value Reference Range Interpretation [...] NOT APPLICABLE FOR DIALYSIS PATIEN TS. LIPID [id number] 05:08:00 Test Item Value Reference Range Interpretation [...] 130-159 High 160-189 Very High >=190HEPATIC FUNCTION [id number] 05:08:00 Test Item Value Reference Range Interpretation [...] code = 5 U/L 5-50 347) HEMOGLOBIN [id number] 05:02:00 Test Item Value Reference Range Interpretation Comments HEMOGLOBIN A1C (BEAKER) (test code = 8.6 % 4.3-6.1 H 368) CBC W/PLT COUNT & AUTO [id number] 04:47:00 Test Item Value Reference Range Interpretation [...] PERCENT (BEAKER) (test code = 2801) POCT-GLUCOSE [id number] 22:56:00 Test Item Value Reference Range Interpretation Comments POC-GLUCOSE METER 95 mg/dL 70-110 : TESTED A T [facility] [address] (BEAKER) (test code = [address], 1538) [facility] 77 478: Medical Artist/Techni yosvany ID = [id number] for Jax corneliusbreanna Lucaszane CT, [id number] 18:58:00Reason for exam:->VAGINAL DISCHARGEWhat is the patient's [...] Schultz MDReport Verified Date/Time: 18:58:34 Reading Location: [address] Consult Reading Room LIPASE 2019-02-17 18:20:00 Test Item Value Reference Range Interpretation Comments LIPASE (BEAKER) (test code = 749) 6 U/L 6-51 BASIC METABOLIC [id number] 18:20:00 Test Item Value Reference Range Interpretation [...] TO CALCULA TE ESTIMATED GFR. HEPATIC FUNCTION [id number] 18:19:00 Test Item Value Reference Range Interpretation [...] code = 5 U/L 5-50 347) PROTHROMBIN [id number] 18:11:00 Test Item Value Reference Range Interpretation [...] Information (Auto Output)CBC W/PLT COUNT & AUTO [id number] 18:01:00 Test Item Value Reference Range Interpretation [...] PERCENT (BEAKER) (test code = 2801) WET [id number] 17:57:00 Test Item Value Reference Range Interpretation [...]
--- OUTSIDE RECORDS SUMMARY | 2020-03-13 19:30 | XMS REPORT | Summary of Care ---
:[address] [facility] - [facility] Address [address] [place] [address] Care Team Providers Name Role Phone Katie Henderson MD Primary Care Provider Leah Poon Payroll Clerk Sammi Eason Insurance Hmo Reason for Visit Reason Comments Refill Request Encounter Details Date Type Department Care Team Description 12/16/2019 Refill [facility] Pediatric and Kevon Aguilar MD Refill Request Adult Primary Care- [address] [facility] [address] Tineo [facility] 205 [address] [place] [address] [address] [place] [address] [phone] Allergies Active Allergy Reactions Severity Noted Date [...] (peripheral artery disease), Coronary artery disease involving [place] coronary artery of [place] heart without angina pectoris GLIPIZIDE 10 mg [...] trigger Dyslipidemia 05/12/2019 Coronary artery disease involving [place] coronary brian ry of [place] heart 05/12/2019 without angina pectoris PAD (peripheral [...] Added automatically from request for kinsey sargent [id number] Urine incontinence 10/07/2018 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 10/17/2017 mellitus Overgrown toenails 10/17/2017 Colon cancer 06/05/2017 Malignant neoplasm of colon, unspecified part of colon 05/06/2017 Overview: Added automatically from request for kinsey sargent [id number] Colonic mass 03/14/2017 Overview: Added automatically from request for kinsey sargent [id number] Vulvar intraepithelial neoplasia (CHASE) grade 3 017 [...] Office Visit Internal Medicine Demi Henderson MD [address] [place] [address] 15 [phone] Health Maintenance Due Date Last Done Comments [...] Addre ss Type Group MEDICARE MEDICARE PART [id number] 2003-Presbreanna [phone] [address] Medicare A & B nt 2 [id number] RADHA RAMOS [id number] [facility] MEDICAID OF [id number] 2018-Becky [phone] [address] Medicaid [place] t 0 [id number] [place] [address] documented as of this encounter Advance Directives Name Relationship Healthcare Agent Communication Relationship Jose Guerrier [facility] Health Care Agent [email or web address] Obdulio Samson [facility] Agent (Mobile)
--- OUTSIDE RECORDS SUMMARY | 2020-03-13 19:30 | XMS REPORT | Summary of Care ---
:1945 Author Organization [facility] - [facility] Address [address] [place] [address] Care Team Providers Name Role Phone Katie Henderson MD Primary Care Provider Leah Poon Windshield Repair Technician Sammi Eason Insurance Hmo Reason for Visit Reason Comments Forms Encounter Details Date Type Department Care Team Description 12/13/2019 Telephone [facility] Pediatric and Anne Henderson Forms Adult Primary Care- MD Tineo [address] [place] [address] [address] [place] [address] [place] [address] [phone] Allergies Active Allergy Reactions Severity Noted Date [...] (peripheral artery disease), Coronary artery disease involving [place] coronary artery of [place] heart without angina pectoris GLIPIZIDE 10 mg [...] trigger Dyslipidemia 05/12/2019 Coronary artery disease involving [place] coronary brian ry of [place] heart 05/12/2019 without angina pectoris PAD (peripheral [...] Added automatically from request for kinsey arie [id number] Urine incontinence 10/07/2018 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 elephone Encounter - Kristina Ward - 12/13/2019 10:05 AM CDTJugrace is calling from [employer] and is requesting an update on forms faxed on 11/14, matt stated they received chart notes but no complete forms, please call Matt back at [phone] signed by Kristina Ward at 12/13/2019 10:06 AM CDTdocumented in this encounter Plan of Treatment Date Type Specialty Care Team Description 01/10/2020 Office Visit Internal Medicine Demi Henderson MD [address] [place] [address] 15 [phone] Health Maintenance Due Date Last Done Comments [...] Addre ss Type Group MEDICARE MEDICARE PART [id number] 2003-Prese [phone] [address] Medicare A & B 2 [id number] [place] [address] [facility] MEDICAID OF [id number] 2018-Presen [phone] [address] Medicaid [place] t 0 [id number] [place] [address] documented as of this encounter Advance Directives Name Relationship Healthcare Agent Communication Relationship Jose Guerrier [facility] Health Care Agent [email or web address] Obdulio Samson [facility] Agent (Mobile)
--- OUTSIDE RECORDS SUMMARY | 2020-03-13 19:30 | XMS REPORT | Summary of Care ---
:1945 Author Organization [facility] Address [address] [place] [address] Care Team Providers Name Role Phone Katie Henderson MD Primary Care Provider Leah Poon Envelope Addresser Sammi Eason Insurance Hmo Reason for Visit Reason Comments Refill Request Encounter Details Date Type Department Care Team Description 12/16/2019 Refill [facility] Pediatric and Anne Henderson, Refill Request Adult Primary Care- MD Tineo [address] [place] [address] [address] [address] [address] [place] [address] [place] [address] [phone] Allergies Active Allergy Reactions Severity Noted Date [...] (peripheral artery disease), Coronary artery disease involving [place] coronary artery of [place] heart without angina pectoris JANUVIA 25 mg [...] trigger Dyslipidemia 05/12/2019 Coronary artery disease involving [place] coronary brian ry of [place] heart 05/12/2019 without angina pectoris PAD (peripheral [...] Added automatically from request for kinsey sargent [id number] Urine incontinence 10/07/2018 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 10/17/2017 mellitus Overgrown toenails 10/17/2017 Colon cancer 06/05/2017 Malignant neoplasm of colon, unspecified part of colon 05/06/2017 Overview: Added automatically from request for kinsey sargent [id number] Colonic mass 03/14/2017 Overview: Added automatically from request for kinsey sargent 489244 Vulvar intraepithelial neoplasia (CHASE) grade 3 017 [...] Office Visit Internal Medicine Demi Henderson MD [address] [place] [address] 15 [phone] Health Maintenance Due Date Last Done Comments [...] Addre ss Type Group MEDICARE MEDICARE PART [id number] 2003-Prese [phone] [address] Medicare A & B 2 [id number] [place] [address] [facility] MEDICAID OF [id number] 2018-Presen [phone] Medicaid [place] t 0 [id number] [place] [address] documented as of this encounter Advance Directives Name Relationship Healthcare Agent Communication Relationship Jose Guerrier [facility] Health Care Agent Obdulio Samson [facility] Agent (Mobile)
--- OUTSIDE RECORDS SUMMARY | 2020-03-13 19:30 | XMS REPORT | Clinical Summary ---
:1945 Author Organization [facility] Address [address] [place] [address] Care Team Providers Name Role Phone Pcp, No Primary Care Provider Unavailable Allergies Active Allergy Reactions Severity Noted Date Comments Morphine Anxiety Low 02/17/2019 Medications Medication Sig Dispensed Refills Start Date End Date Status metroNIDAZOLE Take 500 mg by 0 A ctive (FLAGYL) 500 MG mouth every 8 tablet (eight) hours. ondansetron (ZOFRAN) Take by mouth 0 Active 4 mg/5 mL solution once. acetaminophen Take 650 mg by 0 A ctive (TYLENOL) 325 MG mouth every 6 tablet (six) hours as needed for Pain. aspirin 81 MG EC Take 1 tablet 30 tablet 0 02/19/2019 03/21/20 19 tablet (81 mg total) by mouth daily for 30 days. atorvastatin Take 1 tablet 30 tablet 0 02/19/2019 03/21/2019 E xpired (LIPITOR) 10 MG (10 mg total) by tablet mouth daily for 30 days. famotidine (PEPCID) Take 1 tablet 60 tablet 0 02/19/201903/21 20 MG tablet (20 mg total) by mouth 2 (two) times daily for 30 days. Lactobacillus Take 1 tablet by 60 tablet 0 02/19/2019 03/21/20 19 acidoph-L.bulgar mouth 2 (two) (FLORANEX) 1 million times daily for cell Tab per tablet 30 days. lisinopril Take 1 tablet 30 tablet 0 02/19/2019 03/21/2019 Exp ired (PRINIVIL,ZESTRIL) 20 (20 mg total) by MG tablet mouth daily for 30 days. metFORMIN Take 1 tablet 60 tablet 0 02/19/2019 03/21/2019 Expi red (GLUCOPHAGE) 500 MG (500 mg total) tablet by mouth 2 (two) times daily with breakfast and dinner for 30 days. rivaroxaban (XARELTO) Take 1 tablet 30 tablet 0 02/19/2019 20 mg Tab tablet (20 mg total) by mouth daily with dinner for 30 days. SITagliptin (JANUVIA) Take 1 tablet 30 tablet 0 02/19/2019 50 MG tablet (50 mg total) by mouth daily for 30 days. 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 Social History Tobacco Use Types Packs/Day Years [...] Date Last Done Comments BREAST CANCER SCREENING 1945 COLON CANCER SCREENING COLONOSCOPY 1945 MEDICARE ANNUAL WELLNESS (YEAR 2 or FIRST YEAR if no 03/01/2004 IPPE) PNEUMOCOCCAL 65+ YRS (1 of 1 - [id number] PCV13) 2010 INFLUENZA VACCINE (#1) 2019 Results Not on fileafter 03/13/2019 Insurance Payer Benefit Plan / Subscriber ID Effective Dates Phone Addre ss Type Group MEDICARE MEDICARE A B [id number] 2003-Presen Medicare t [place] MEDICAID [place] [id number] 2019-Presen t Advance Directives For more information, please contact: [phone] Code Status Date Activated Date Inactivated Comments Full Code 02/17/2019 10:31 PM 02/19/2019 1:18 PM This code status was determined by: Patient
--- OUTSIDE RECORDS SUMMARY | 2020-03-13 19:31 | XMS REPORT | Summary of Care ---
:1945 Author Organization [facility] - [facility] Address [address] [place] [address] Care Team Providers Name Role Phone Katie Henderson MD Primary Care Provider Leah Poon Explosion Welder Sammi Eason Insurance Hmo Reason for Visit Reason Comments Forms Encounter Details Date Type Department Care Team Description 12/16/2019 Telephone [facility] Pediatric and Anne Henderson Forms Adult Primary Care- MD Tineo [address] [place] [address] [address] [place] [address] [place] [address] [phone] Allergies Active Allergy Reactions Severity Noted Date [...] (peripheral artery disease), Coronary artery disease involving [place] coronary artery of [place] heart without angina pectoris JANUVIA 25 mg [...] trigger Dyslipidemia 05/12/2019 Coronary artery disease involving [place] coronary brian ry of [place] heart 05/12/2019 without angina pectoris PAD (peripheral [...] Added automatically from request for kinsey arie [id number] Urine incontinence 10/07/2018 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 Telephone Encounter - Kristina Ward - 12/17/2019 9:33 AM CDTJuan from [employer] is calling and is requesting an update on encounter below. elephone Encounter - Kristina Ward - 12/16/2019 1:54 PM CDTJuan from [employer] is calling and is requesting to know if fax orders they sent in have been signed, please call Matt back at [phone] signed by Kristina Ward at 12/16/2019 1:56 PM CDTdocumented in this encounter Plan of Treatment Date Type Specialty Care Team Description 01/10/2020 Office Visit Internal Medicine Demi Henderson MD [address] [place] [address] 15 [phone] Health Maintenance Due Date Last Done Comments [...] Addre ss Type Group MEDICARE MEDICARE PART [id number] 2003-Prese [phone] [address] Medicare A & B 2 [id number] [place] [address] [facility] MEDICAID OF [id number] 2018-Presen [phone] [address] Medicaid [place] t 0 [id number] [place] [address] documented as of this encounter Advance Directives Name Relationship Healthcare Agent Communication Relationship Jose Guerrier Child Health Care Agent [email or web address] Obdulio Samson [facility] Care [phone] Agent (Mobile)
--- OUTSIDE RECORDS SUMMARY | 2020-03-13 19:31 | XMS REPORT | Summary of Care ---
:1945 Author Organization [facility] - [facility] Address [address] [place] [address] Care Team Providers Name Role Phone Katie Henderson MD Primary Care Provider Leah Poon Bar Tacker Sammi Eason Insurance Hmo Reason for Visit Reason Comments Orders Encounter Details Date Type Department Care Team Description 12/29/2019 Telephone [facility] Pediatric and Anne Henderson Orders Adult Primary Care- MD Tineo [address] [place] [address] [address] [place] [address] [place] [address] [phone] Allergies Active Allergy Reactions Severity Noted Date [...] (peripheral artery disease), Coronary artery disease involving [place] coronary artery of [place] heart without angina pectoris JANUVIA 25 mg [...] trigger Dyslipidemia 05/12/2019 Coronary artery disease involving [place] coronary brian ry of [place] heart 05/12/2019 without angina pectoris PAD (peripheral [...] Added automatically from request for kinsey sargent [id number] Urine incontinence 10/07/2018 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 documented in this encounter Plan of Treatment Date Type Specialty Care Team Description 01/10/2020 Office Visit Internal Medicine Demi Henderson MD [address] [place] [address] 15 [phone] Health Maintenance Due Date Last Done Comments [...] Addre ss Type Group MEDICARE MEDICARE PART [id number] 2003-Prese [phone] [address] Medicare A & B 2 [id number] [place] [address] [facility] MEDICAID OF [id number] 2018-Presen [phone] [address] Medicaid [place] t 0 [id number] [place] [address] documented as of this encounter Advance Directives Name Relationship Healthcare Agent Communication Relationship Jose Guerrier Child Health Care Agent [email or web address] Obdulio Samson [phone] Agent (Mobile)
--- OUTSIDE RECORDS SUMMARY | 2020-03-13 19:31 | XMS REPORT | Summary of Care ---
:1945 Author Organization [facility] - [facility] Address [address] [place] [address] Care Team Providers Name Role Phone Katie Henderson MD Primary Care Provider Leah Poon Substitute Crossing Guard Sammi Eason Insurance Hmo Reason for Visit Reason Comments DME Encounter Details Date Type Department Care Team Description 12/23/2019 Telephone [facility] Pediatric and Anne Henderson DME Adult Primary Care- [place] [address] [place] [address] [address] [place] [address] [place] [address] [phone] Allergies Active Allergy Reactions Severity Noted Date [...] artery of [place] heart without angina pectoris JANUVIA 25 mg [...] Added automatically from request for kinsey sargent [id number] Urine incontinence 10/07/2018 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 Medicare A & B nt 2 [id number] [place] [address] [facility] MEDICAID OF [id number] 2018-Presen [phone] [address] Medicaid [place] t 0 [id number] [place] [address] documented as of this encounter Advance Directives Name Relationship Healthcare Agent Communication Relationship Jose Guerrier [facility] Health Care Agent [email or web address] Obdulio Samson [facility] Agent (Mobile)
--- OUTSIDE RECORDS SUMMARY | 2020-03-13 19:31 | XMS REPORT | Summary of Care ---
:[address] [facility] - [facility] Address [address] [place] [address] Care Team Providers Name Role Phone Katie Henderson MD Primary Care Provider Leah Poon Billet Heater Sammi Eason Insurance Hmo Reason for Visit Reason Comments DME Knee brace Encounter Details Date Type Department Care Team Description 12/20/2019 Telephone [facility] Pediatric Matilde Henderson, DME (Knee brace) and Adult Primary Care- MD Tineo [address] [place] [address] [address] [place] [address] [place] [address] [phone] Allergies Active Allergy Reactions Severity Noted Date [...] (peripheral artery disease), Coronary artery disease involving [place] coronary artery of [place] heart without angina pectoris JANUVIA 25 mg [...] trigger Dyslipidemia 05/12/2019 Coronary artery disease involving [place] coronary brian ry of [place] heart 05/12/2019 without angina pectoris PAD (peripheral [...] Added automatically from request for kinsey arie [id number] Urine incontinence 10/07/2018 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 Henderson's box documented in this encounter Plan of Treatment Date Type Specialty Care Team Description 01/10/2020 Office Visit Internal Medicine Demi Henderson MD [address] [place] [address] 15 [phone] Health Maintenance Due Date Last Done Comments [...] Addre ss Type Group MEDICARE MEDICARE PART [id number] 2003-Prese [phone] [address] Medicare A & B nt 2 [id number] [place] [address] [facility] MEDICAID OF [id number] 2018-Becky [id number] [address] Medicaid [place] t 0 [id number] [place] [address] documented as of this encounter Advance Directives Name Relationship Healthcare Agent Communication Relationship Jose Guerrier [facility] Health Care Agent Obdulio Samson [facility] [place] [phone] Agent (Mobile)
--- OUTSIDE RECORDS SUMMARY | 2020-03-13 19:32 | XMS REPORT | Summary of Care ---
:1945 Author Organization [facility] - [facility] Address [address] [place] [address] Care Team Providers Name Role Phone Katie Henderson MD Primary Care Provider Leah Poon Syrup Maker Sammi Eason Insurance Hmo Reason for Visit Reason Comments Appointment Encounter Details Date Type Department Care Team Description 01/10/[address] [facility] Pediatric and Anne Henderson, Appointment Adult Primary Care- MD Tineo [address] [place] [address] [address] [place] [address] [place] [address] [phone] Allergies Active Allergy Reactions Severity Noted Date Comments Morphine Hallucinations 06/28/2016 documented as of this encounter (statuses as of 01/10/2020) Medications Medication Sig Dispensed Refills Start Date [...] (peripheral artery disease), Coronary artery disease involving [place] coronary artery of [place] heart without angina pectoris JANUVIA 25 mg [...] as of this encounter (statuses as of 01/10/2020) Active Problems Problem Noted Date Gastrointestinal hemorrhage with hematemesis 0 Non-seasonal allergic rhinitis due to pollen 0 Non-seasonal allergic rhinitis, unspecified trigger Dyslipidemia 05/12/2019 Coronary artery disease involving [place] coronary brian ry of [place] heart 05/12/2019 without angina pectoris PAD (peripheral [...] Added automatically from request for kinsey sargent [id number] Urine incontinence 10/07/2018 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 10/17/2017 mellitus Overgrown toenails 10/17/2017 Colon cancer 06/05/2017 Malignant neoplasm of colon, unspecified part of colon 05/06/2017 Overview: Added automatically from request for kinsey arie [id number] Colonic mass 03/14/2017 Overview: Added automatically from request for kinsey arie [id number] 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 S/P hysterectomy 10/29/2016 Vulvar lesion 10/29/2016 Type 2 diabetes mellitus with complication 10/11/2016 Diffuse pain 10/11/2016 Near syncope 06/28/2016 UTI (urinary tract infection) 05/24/2016 Generalized abdominal pain 05/24/2016 documented as of this encounter (statuses as of 01/10/2020) Resolved Problems Problem Noted Date Resolved Date Hematuria 10/29/2016 10/29/2016 documented as of this encounter (statuses as of 01/10/2020) Immunizations Name Administration Dates Next Due Influenza High Dose 02/01/2019 documented as of this encounter Social History Tobacco Use Types Packs/Day Years Used Date Never Smoker Smokeless Tobacco: Never Used Alcohol Use Drinks/Week oz/Week Comments No Sex Assigned at Date Recorded Not on file COVID-19 Exposure Response Date Recorded In the last month, have you been in contact with No / Unsure 01/07/2020 9:27 AM CDT someone who was confirmed or suspected to have Coronavirus / COVID-19? documented as of this encounter Last Filed Vital Signs Not on filedocumented in this encounter Miscellaneous Notes Telephone Encounter - Darlene Henderson MD - 01/10/2020 12:30 PM CDTWhen was she in the ER? Where? And for what? She has appointment with Dr. Donis later this month. elephone Encounter - Ave [facility] - 01/10/2020 8:12 AM CDTSOP is calling requesting an appointment for an ER follow up with Dr. Henderson, SOP was offered but requested for a message to be sent. SOP is requesting a call back. documented in this encounter Plan of Treatment Date Type Specialty Care Team Description 01/21/2020 Office Visit Family Medicine Kevon Donis MD [address] [place] [address] [place] [address] 15 [phone] Health Maintenance Due Date Last Done Comments [...] Addre ss Type Group MEDICARE MEDICARE PART [id number] 2003-Prese [phone] [address] Medicare A & B 2 [id number] [place] [address] [facility] MEDICAID OF [id number] 2018-Presen [phone] [address] Medicaid [place] t 0 [id number] [place] [address] documented as of this encounter Advance Directives Name Relationship Healthcare Agent Communication Relationship Jose Guerrier Child Health Care Agent Obdulio Samson [facility] [phone] Agent (Mobile)
--- OUTSIDE RECORDS SUMMARY | 2020-03-13 19:32 | XMS REPORT | Summary of Care ---
:1945 Author Organization [facility] - [facility] Address [address] [place] [address] Care Team Providers Name Role Phone Katie Henderson MD Primary Care Provider Leah Poon Photographer'S Assistant Sammi Eason Insurance Hmo Reason for Visit Reason Comments Appointment Encounter Details Date Type Department Care Team Description 01/10/2020 Telephone [facility] Pediatric and Anne Henderson, Appointment Adult Primary Care- MD Tineo [address] [place] [address] [address] [place] [address] [place] [address] [phone] Allergies Active Allergy Reactions Severity Noted Date [...] (peripheral artery disease), Coronary artery disease involving [place] coronary artery of [place] heart without angina pectoris JANUVIA 25 mg [...] trigger Dyslipidemia 05/12/2019 Coronary artery disease involving [place] coronary brian ry of [place] heart 05/12/2019 without angina pectoris PAD (peripheral [...] Added automatically from request for kinsey sargent [id number] Urine incontinence 10/07/2018 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 Henderson, SOP was offered but requested for a message to be sent. SOP is requesting a call back. documented in this encounter Plan of Treatment Health [...] Addre ss Type Group MEDICARE MEDICARE PART [id number] 2003-Prese [phone] [address] Medicare A & B nt 2 [id number] [place] [address] [facility] MEDICAID OF [id number] 2018-Presen [phone] [address] Medicaid [place] t 0 [id number] [place] [address] documented as of this encounter Advance Directives Name Relationship Healthcare Agent Communication Relationship Jose Guerrier [facility] Health Care Agent [email or web address] Obdulio Samson [facility] Agent (Mobile)
--- OUTSIDE RECORDS SUMMARY | 2020-03-13 19:32 | XMS REPORT | Summary of Care ---
:1945 Author Organization [facility] - [facility] Address [address] [place] [address] Care Team Providers Name Role Phone Katie Henderson MD Primary Care Provider Leah Poon Hand Spray Operator Sammi Esaon Insurance Hmo Reason for Visit Reason Comments Orders Encounter Details Date Type Department Care Team Description 01/04/2020 Telephone [facility] Pediatric and Anne Henderson Orders Adult Primary Care- MD Tineo [address] [place] [address] [address] [place] [address] [place] [address] [phone] Allergies Active Allergy Reactions Severity Noted Date [...] (peripheral artery disease), Coronary artery disease involving [place] coronary artery of [place] heart without angina pectoris JANUVIA 25 mg [...] trigger Dyslipidemia 05/12/2019 Coronary artery disease involving [place] coronary brian ry of [place] heart 05/12/2019 without angina pectoris PAD (peripheral [...] Added automatically from request for kinsey sargent [id number] Urine incontinence 10/07/2018 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 Matt is requesting a call back. documented in this encounter Plan of Treatment Date Type Specialty Care Team Description 01/10/2020 Office Visit Internal Medicine Demi Henderson MD [address] [place] [address] 15 [phone] Health Maintenance Due Date Last Done Comments [...] Addre ss Type Group MEDICARE MEDICARE PART [id number] 2003-Prese [phone] [address] Medicare A & B nt 2 [id number] [place] [address] [facility] MEDICAID OF [id number] 2018-Presdipika [phone] [address] Medicaid [place] t 0 [id number] [place] [address] documented as of this encounter Advance Directives Name Relationship Healthcare Agent Communication Relationship Jose Guerrier [facility] Health Care Agent [email or web address] Obdulio Samson [facility] Agent (Mobile)
--- OUTSIDE RECORDS SUMMARY | 2020-03-13 19:33 | XMS REPORT | Summary of Care ---
:1945 Author Organization [facility] Address [address] [place] [address] Care Team Providers Name Role Phone Katie Henderson MD Primary Care Provider Leah Poon [employer] Sammi Eason Insurance Hmo Reason for Visit Reason Comments Cough Fall Encounter Details Date Type Department Care Team Description 01/13/2020 Telemedicine Visit [facility] Kevon Donis Coug h in adult patient (Primary Dx); Pediatric and Adult MD Rosenberg, sequela Primary Care- 146 [facility] [address], [address] [place], [place] [phone] Allergies Active Allergy Reactions Severity Noted Date Comments Morphine Hallucinations 06/28/2016 documented as of this encounter (statuses as of 01/19/2020) Medications Medication Sig Dispensed Refills Start Date [...] (peripheral artery disease), Coronary artery disease involving [place] coronary artery of [place] heart without angina pectoris JANUVIA 25 mg [...] BEFORE mellitus with BREAKFAST AND complication DINNER benzonatate 100 mg Take 1 capsule by 30 capsule 0 01/13/2020 Active capsuleIndications: mouth 3 (three) Cough in adult times daily as patient needed for Cough. acetaminophen Take 1 tablet by 20 tablet 0 01/13/2020 Active (TYLENOL 8 HOUR) 650 mouth every 8 mg CR (eight) hours as tabletIndications: needed for Pain. Cough in adult patient fluticasone Use 1 Paradise in each 16 g 0 01/13/2020 Active propionate 50 nostril daily. mcg/actuation nasal sprayIndications: Cough in adult patient albuterol-ipratropiu Inhale 1 Puff 4 4 g 1 01/13/2020 Active m 20-100 (four) times daily. mcg/actuation inhalerIndications: Cough in adult patient documented as of this encounter (statuses as of 01/19/2020) Active Problems Problem Noted Date Cough in adult patient 01/19/2020 Fall, sequela 01/19/2020 Gastrointestinal hemorrhage with hematemesis 0 Non-seasonal allergic rhinitis due to pollen 0 Non-seasonal allergic rhinitis, unspecified trigger Dyslipidemia 05/12/2019 Coronary artery disease involving [place] coronary brian ry of [place] heart 05/12/2019 without angina pectoris PAD (peripheral [...] Added automatically from request for kinsey arie [id number] Urine incontinence 10/07/2018 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 10/17/2017 mellitus Overgrown toenails 10/17/2017 Colon cancer 06/05/2017 Malignant neoplasm of colon, unspecified part of colon 05/06/2017 Overview: Added automatically from request for kinsey sargent [id number] Colonic mass 03/14/2017 Overview: Added automatically from request for kinsey sargent [id number] 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 S/P hysterectomy 10/29/2016 Vulvar lesion 10/29/2016 Type 2 diabetes mellitus with complication 10/11/2016 Diffuse pain 10/11/2016 Near syncope 06/28/2016 UTI (urinary tract infection) 05/24/2016 Generalized abdominal pain 05/24/2016 documented as of this encounter (statuses as of 01/19/2020) Resolved Problems Problem Noted Date Resolved Date Hematuria 10/29/2016 10/29/2016 documented as of this encounter (statuses as of 01/19/2020) Immunizations Name Administration Dates Next Due Influenza [...] Signs Not on filedocumented in this encounter Patient Instructions Patient InstructionsEdKevon menchaca MD - 01/13/2020 9:40 AM CDT Patient Education FallPrevention Falls often occur due to slipping, tripping or losing your balance. Millions of people fall every year and injure themselves.Here are ways to reduce your risk of falling again. Think about your fall, was there anything that caused your fall that can be fixed, removed, or replaced? Make your home safe by keeping walkways clear of objects you may trip over, such as electric cords. Use non-slip pads under rugs. Don't use area rugs or small throw rugs. Use non-slip mats in bathtubs and showers. Install handrails and lights on staircases. The handrails should be on both sides of the stairs. Don't walk in poorly lit areas. Don't stand on chairs or wobbly ladders. Use caution when reaching overhead or looking upward.This position can cause a loss of balance. Be sure your shoes fit properly, have non-slip bottoms and are in good condition. Wear shoes both inside and out. Don't go barefoot or wear slippers. Be cautious when going up and down stairs, curbs, and when walking on uneven sidewalks. If your balance is poor, consider using a cane or walker. If your fall was related to alcohol use, stop or limit alcohol intake. If your fall was related to use of sleeping medicines, talk to your healthcare provider about this.You may need to reduce your dosage at bedtime if you awaken during the night to go to the bathroom. To reduce the need for nighttime bathroom trips: ? Don't drink fluids for several hours before going to bed ? Empty your bladder before going to bed ? Men can keep a urinal at the bedside Stay as active as you can. Balance, flexibility, strength, and endurance all come from exercise. They all play a role in preventing falls. Ask your healthcare provider which types of activity are right for you. Get your vision checked on a regular basis. If you have pets, know where they are before you stand up or walk so you don't trip over them. Use night lights. Go over all your medicines with a pharmacist or other healthcare provider to see if any of them could make you more likely to fall. [employer] last reviewed this educational content on 06/29/201719994119-9855 [employer]. [address] [place] [address]. All rights reserved. This information is not intended as a substitute for professional medical care. Always follow your healthcare professional's instructions. documented in this encounter Progress Notes Kevon Donis MD - 01/13/2020 9:40 AM CDT TELEMEDICINE CLINIC NOTE DATE OF SERVICE: 01/13/2020 VISIT TYPE: TELEMEDICINE This is a telemedicine visit, without video (doximity) Due to concern for COVID 19 spread, will conduct telemedicine visit today. Verbal consent obtained from Patient: Leydi Guerrier for telehealth services provided below. Communication with patient was conducted via Telephone due to patient unable to obtain video call option. Location of Patient: Home Location of Provider: Clinic Phone call to patient. Name and identified. CHIEF COMPLAINT: Cough and Fall HPI Leydi Guerrier is a 74 year old female who has a past medical history of Abnormal uterine bleeding, Anemia, unspecified type (02/01/2019), Blind, Confusion (02/11/2019), Coronary artery diseaseinvolving [place] coronary artery of [place] heart without angina pectoris (05/12/2019), Diffuse pain (10/11/2016), HLD (hyperlipidemia), HTN (hypertension), Osteomyelitis of fifth toe of right foot (02/11/2019), Other diabetic neurological complication associated with type 2 diabetes mellitus (10/17/2017), Overgrown toenails (10/17/2017), Type 2 diabetes mellitus with complication, unspecified terminal operator insulin use status (10/11/2016), Urinary incontinence, and Vulvar intraepithelial neoplasia (CHASE) grade3 (01/31/2017). She also has no past medical history of Anxiety, Asthma, Autoimmune disorder, Breast disorder, Clotting disorder, Endometriosis, Female infertility, Genital herpes, Genital warts, Heart murmur, Hormone disorder, Human immunodeficiency virus (HIV) disease, Leiomyoma of uterus, Liver disease, Menstrual disorder, Pap smear abnormality of cervix, PID (pelvic inflammatory disease), Rh incompatibility, Seizures, Sickle cell anemia, STD (sexually transmitted disease), Substance abuse, Superficial thrombophlebitis, Thyroid disease, Transfusion history, Trauma, or Tuberculosis. Patient reports intermittent cough that is bother her. Denies know sick contact, only contact is a new personnel that helps her with ADLs, in addition to patient's son. Patient reports she slid and fell a couple days ago while trying to change position, did not land onthe floor and was able to hold onto the chair, denies back or head trauma. 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 Past Surgical History: Procedure Laterality Date COLONOSCOPY N/A 03/20/2017 Surgeon: Ashlee Lundy MD; [facility] COLONOSCOPY N/A 11/20/2018 Surgeon: Felicita Pineda MD; [facility] ESOPHAGOGASTRODUODENOSCOPY N/A 11/20/2018 Surgeon: Felicita Pineda MD; [facility] HYSTERECTOMY LAPAROSCOPIC ROBOTIC ASSISTED COLECTOMY 06/04/2017 LAPAROSCOPIC ROBOTIC ASSISTED HEMICOLECTOMY N/A 06/04/2017 Surgeon: Ashlee Lundy MD; [facility] REMOVAL OF SINGLE TOE,EACH STENT VULVAR BIOPSY (SHX) N/A 06/04/2017 Surgeon: Anoop De Luna; Location: [facility] ? Current Outpatient Medications Medication Sig Dispense Refill acetaminophen (TYLENOL 8 HOUR) 650 mg CR tablet Take 1 tablet by mouth every 8 (eight) hours as needed for Pain. 20 tablet 0 albuterol-ipratropium 20-100 mcg/actuation inhaler Inhale 1 Puff 4 (four) times daily. 4 g 1 benzonatate 100 mg capsule Take 1 capsule by mouth 3 (three) times daily as needed for Cough. 30capsule 0 fluticasone propionate 50 mcg/actuation nasal spray Use 1 [place] in each nostril daily. 16 g 0 GLIPIZIDE 10 mg tablet TAKE TWO (2) TABLETS BY MOUTH TWICE DAILY BEFORE BREAKFAST AND DINNER 90 tablet 0 repaglinide 0.5 mg tablet TAKE 1 TABLET BY MOUTH BEFORE LUNCH AND DINNER IF SUGAR 2 HOURS AFTER MEAL IS STILL >200 THEN INCREASE TO 2 TABLETS BEFORE LUNCH AND DINNER 90 tablet 3 LISINOPRIL 10 mg tablet TAKE 1 TABLET BY MOUTH DAILY 30 tablet 0 Diclofenac Sodium 1 % gel APPLY 2-4 GRAMS TOPICALLY THREE TIMES A DAY NEEDED FOR PAIN 100 g 10 PREGABALIN 300 mg capsule TAKE 1 CAPSULE BY MOUTH TWICE DAILY 60 capsule 10 XARELTO 20 mg tablet TAKE 1 TABLET BY MOUTH DAILY 30 tablet 2 JANUVIA 25 mg tablet TAKE 1 TABLET BY MOUTH EVERY DAY 30 tablet 10 baclofen 5 mg Tab Take 2.5 mg by mouth at bedtime. 30 tablet 3 CETIRIZINE 10 mg tablet TAKE 1 TABLET [...] Patient preference Contour 200 Strip 3 No current facility-administered medications for this visit. ? Allergies Allergen Reactions Morphine Hallucinations Family History Problem Relation Age of Onset Diabetes Mother Diabetes Father Heart Father Arthritis NoFHx Asthma NoFHx defects NoFHx Breast Cancer NoFHx Colon Cancer NoFHx Uterine Cancer NoFHx Ovarian Cancer NoFHx Cancer NoFHx Depression NoFHx Genetic NoFHx High cholesterol NoFHx Hypertension NoFHx Mental retardation NoFHx Neurological NoFHx Osteoporosis NoFHx Psychiatry NoFHx ? Social History Socioeconomic History Marital status: Spouse [...] file Gets together: Not on file Attends pentecostal service: Not on file Active member of [...] WC and walker nephew live with patient ROS A 15 system review was conducted of the following systems: Constitutional, HENT, Eyes, Neck, Respiratory, Cardiovascular, Gastrointestinal, Genitourinary, Peripheral Vascular, Musculoskeletal, Neurological, Skin, Hematologic, Endocrine, Psychiatric. All review of systems negative, except as above listed in HPI. PHYSICAL EXAM Not possible for complete PE, telemedicine visit Const: alert, oriented, no signs of distress Psych: mood and behavior appropriate LAB DATA Reviewed RADIOLOGY/IMAGING Reviewed ASSESSMENT/ PLAN Cough in adult patient - Anticipatory guidance discussed - benzonatate 100 mg capsule; Take 1 capsule by mouth 3 (three) times daily as needed for Cough. Dispense: 30 capsule; Refill: 0 - acetaminophen (TYLENOL 8 HOUR) 650 mg CR tablet; Take 1 tablet by mouth every 8 (eight) hours as needed for Pain. Dispense: 20 tablet; Refill: 0 - fluticasone propionate 50 mcg/actuation nasal spray; Use 1 Paradise in each nostril daily. Dispense:16 g; Refill: 0 - albuterol-ipratropium 20-100 mcg/actuation inhaler; Inhale 1 Puff 4 (four) times daily. Dispense:4 g; Refill: 1 - COVID-19 (PCR MOLECULAR TESTING); Future Fall, sequela - Fall precautions discussed, encourage to partake in routine PT/OT to maintain endurance Follow-up: 1 week, PRN concern Appropriate plan of care, desired health behaviors, goals, and medications discussed with patient. Educational resources and self management tools provided via [employer], as applicable. Patient verbalizes understanding. As necessary, prescribed mediations and potential adverse reactions/side effects/medication interactions were discussed with the patient, and the patient will notify me if any occur. Follow up as discussed or report to ER if symptoms should progress or worsen. The patient indicates understanding and agrees with POC. Barriers to adherence: None Ability to manage care: Good AVS available in MyChart Kevon Donis MD, MPH, AAHIVS Clinical Marine Driller, Department of Family Medicine [facility] Primary & Specialty Care - [facility] A total of 10 minutes spent on the telephone with patient. documented in this encounter Plan of Treatment Date Type Specialty Care Team Description 01/21/2020 Office Visit Family Medicine Kevon Donis MD [address] [place] [address] Dr [address] [place] [address] [phone] Name Type Priority Associated Diagnoses Order S chedule COVID-19 (PCR MOLECULAR LAB Routine Cough in adult pa tient Expected: 01/19/2020, TESTING) Expires: 2020 Health Maintenance Due Date Last Done Comments [...] filedocumented in this encounter Visit Diagnoses Diagnosis Cough in adult patient - Primary Fall, sequela documented in this encounter Insurance Payer Benefit Plan / Subscriber ID Effective Dates Phone Addre ss Type Group MEDICARE MEDICARE PART [id number] 2003-Prese [phone] Medicare A & B [place] 2 [id number] [place] [id number] [facility] MEDICAID OF [id number] 2018-Presen [phone] [address] Medicaid [place] 0 [id number] [place] [address] documented as of this encounter Advance Directives Name Relationship Healthcare Agent Communication Relationship Jose Guerrier Child Health Care Agent Obdulio Rey Nephliza [facility] Agent (Mobile)
--- OUTSIDE RECORDS SUMMARY | 2020-03-13 19:33 | XMS REPORT | Summary of Care ---
:1945 Author Organization [address] [address] Care Team Providers Name Role Phone Katie Henderson MD Primary Care Provider Leah Poon [facility] Hospice Nurse Practitioner Sammi Eason Insurance Hmo Reason for Visit Reason Comments Home Health Encounter Details Date Type Department Care Team Description 01/24/2020 Patient Outreach [facility] Stephanie Love, [facility] Health Medicine [address] [place] [address] [place] [address] [phone] Allergies Active Allergy Reactions Severity Noted Date Comments Morphine Hallucinations 06/28/2016 documented as of this encounter (statuses as of 01/24/2020) Medications Medication Sig Dispensed Refills Start Date [...] TabIndications: mouth at bedtime. Other chronic pain JANUVIA 25 mg tablet TAKE 1 TABLET [...] of TABLETS BEFORE insulin LUNCH AND DINNER benzonatate 100 mg Take 1 capsule by 30 capsule 0 01/13/2020 Active capsuleIndications: mouth 3 (three) Cough in adult times daily as patient needed for Cough. acetaminophen Take 1 tablet by 20 tablet 0 01/13/2020 Active (TYLENOL 8 HOUR) 650 mouth every 8 mg CR (eight) hours as tabletIndications: needed for Pain. Cough in adult patient fluticasone Use 1 [place] in each 16 g 0 01/13/2020 Active propionate 50 nostril daily. mcg/actuation nasal sprayIndications: Cough in adult patient albuterol-ipratropiu Inhale 1 Puff 4 4 g 1 01/13/2020 Active m 20-100 (four) times daily. mcg/actuation inhalerIndications: Cough in adult patient rivaroxaban Take 1 tablet by 90 tablet 1 01/21/2020 Active (XARELTO) 20 mg mouth every tabletIndications: morning. prevention of Indications: anginal pain in prevention of coronary artery anginal chest pain disease, PAF associated with coronary artery disease, PAF glipiZIDE 10 mg TAKE TWO (2) 180 tablet 1 01/21/2020 Active tabletIndications: TABLETS BY MOUTH Type 2 diabetes TWICE DAILY BEFORE mellitus with BREAKFAST AND complication DINNER documented as of this encounter (statuses as of 01/24/2020) Active Problems Problem Noted Date Tenderness of chest wall 01/21/2020 Contusion of rib on right side, sequela 01/21/2020 Cough in adult patient 01/19/2020 Fall, sequela [...] 02/01/2019 Fall in home, initial encounter 02/01/2019 Urine incontinence 10/07/2018 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 10/17/2017 mellitus Overgrown toenails 10/17/2017 Colon cancer 06/05/2017 Malignant neoplasm of colon, unspecified part of colon 05/06/2017 Overview: Added automatically from request for kinsey sargent [id number] Colonic mass 03/14/2017 Overview: Added automatically from request for kinsey sargent [id number] 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 S/P hysterectomy 10/29/2016 Vulvar lesion 10/29/2016 Type 2 diabetes mellitus with complication 10/11/2016 Diffuse pain 10/11/2016 Near syncope 06/28/2016 UTI (urinary tract infection) 05/24/2016 Generalized abdominal pain 05/24/2016 documented as of this encounter (statuses as of 01/24/2020) Resolved Problems Problem Noted Date Resolved Date Rectal bleeding 11/04/2018 01/21/2020 Overview: Added automatically from request for kinsey sargent [id number] Hematuria 10/29/2016 10/29/2016 documented as of this encounter (statuses as of 01/24/2020) Immunizations Name Administration Dates Next Due Influenza High Dose 02/01/2019 Influenza High Dose Quad 01/21/2020 (Deferred: Patient Refus ed) documented as of this encounter Social History Tobacco Use Types Packs/Day Years Used Date Never Smoker Smokeless Tobacco: Never Used Alcohol Use Drinks/Week oz/Week Comments No Sex Assigned at Date Recorded Not on file COVID-19 Exposure Response Date Recorded In the last month, have you been in contact with No / Unsure 01/20/2020 2:59 PM CDT someone who was confirmed or suspected to have Coronavirus / COVID-19? documented as of this encounter Last Filed Vital Signs Not on filedocumented in this encounter Progress Notes Stephanie Cazares LMSW - 01/24/2020 1:25 PM CDTSocial Work Note Hospice Nurse Practitioner (SW) received order/consult for Home Health (HH). SW spoke with patient by phone (Leydi Guerrier p: [phone]) to review order; agency CHOICE/ Patient provided CHOICE. Patients Nephew advised patient presently has Provider in place. No new needs identified at present. SW sent referral; services at present. Stephanie Cazares LMSW, [facility] Hospice Nurse Practitioner- Professor Of Family Medicine Management [facility]- [facility] Pager: [phone] Em: [email or web address] Patient Choice Notification Ambulatory Social Work Patient's provider has recommended post-acute care, home health services, and/or durable medical equipment. Based on where Patient resides, and agency service areas, a list was generated from: Medicare.gov www.Medicare.gov If post-acute services were recommended, Patient was informed of the following disclosure: [facility] ownsor is affiliated with the following facilities/agencies: [facility] (senior care and rehabilitation) On 01/24/2020, Patient chose the following agencies to provide services: ? [place] [id number], [place] [address] electronically signed by Stephanie Cazares LMSW at 01/24/2020 2:12 PM CDTdocumented in this encounter Plan of Treatment Date Type Specialty Care Team Description 04/27/2020 Office Visit Family Medicine Kevon Donis MD [address] [place] [address] 775 [address] [phone] Health Maintenance Due Date Last Done Comments Medicare Wellness Visit 2010 Osteoporosis Screening 2010 Breast Cancer Screening 01/08/2018 01/08/2017 (Declined) (MAMMOGRAM) HgA1C 08/12/2019 02/11/2019, 02/01/2019, 10/15/2018, Additional history exists URINE MICROALBUMIN 08/22/2019 08/21/2018, 04/30/2017 INFLUENZA VACCINE (#1) 2019 02/01/2019 LDL-C 02/12/2020 02/11/2019, 10/15/2018, 08/21/2018, Additional history exists CREATININE (SERUM) 02/21/2020 02/20/2019, 02/12/2019, 02/11/2019, Additional history exists Depression Screening 05/12/2020 05/12/2019 DTaP,Tdap,and Td Vaccines 01/20/2021 Postpo mati from (1 - Tdap) 1964 (Insu rere / Financial) FOOT EXAM 01/20/2021 01/21/2020, 08/10/2018, 08/10/2018, Additional history exists Zoster Recombinant Vaccine 01/20/2021 Postp oned from (SHINGRIX) (1 of 2) 12/31/1995 ( Insurance / Financial) HEPATITIS C (HCV) SCREEN Completed 01/08/2017 PNEUMOCOCCAL VACCINES 65+ Addressed 01/08/2017 (Declined) Overridden with the intention of not completing the t opic EYE EXAM Discontinued documented as of this encounter Results Not on filedocumented in this encounter Insurance Payer Benefit Plan / Subscriber ID Effective Dates Phone Addre ss Type Group MEDICARE MEDICARE PART [id number] 2003-Prese [phone] [address] Medicare A & B 2 [id number] [place] [address] [facility] MEDICAID OF [id number] 2018-Presen [phone] [address] Medicaid [facility] 0 [id number] [place] [address] documented as of this encounter Advance Directives Name Relationship Healthcare Agent Communication Relationship Jose Guerrier [facility] Health Care Agent [email or web address] Obdulio Samson [facility] [phone] Agent (Mobile)
--- OUTSIDE RECORDS SUMMARY | 2020-03-13 19:33 | XMS REPORT | Summary of Care ---
:1945 Author Organization [facility] - [facility] Address [address] [place] [id number] Care Team Providers Name Role Phone Katie Henderson MD Primary Care Provider Leah Poon Power Transmission Engineer Sammi Eason Insurance [employer] Reason for Visit Reason Comments Appointment Encounter Details Date Type Department Care Team Description 01/10/2020 Telephone [facility] Pediatric and Anne Henderson, Appointment Adult Primary Care- MD Tineo [address] [place] [address] [address] [place] [address] [place] [address] [phone] Allergies Active Allergy Reactions Severity Noted Date [...] (peripheral artery disease), Coronary artery disease involving ho-chunk coronary artery of ho-chunk heart without angina pectoris JANUVIA 25 mg [...] trigger Dyslipidemia 05/12/2019 Coronary artery disease involving ho-chunk coronary brian ry of ho-chunk heart 05/12/2019 without angina pectoris PAD (peripheral [...] Added automatically from request for kinsey sargent [id number] Urine incontinence 10/07/2018 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 10/17/2017 mellitus Overgrown toenails 10/17/2017 Colon cancer 06/05/2017 Malignant neoplasm of colon, unspecified part of colon 05/06/2017 Overview: Added automatically from request for kinsey arie [id number] Colonic mass 03/14/2017 Overview: Added automatically from request for kinsey arie [id number] Vulvar intraepithelial neoplasia (CHASE) grade 3 017 [...] Telephone Encounter - Dori Reynolds RN - 01/10/2020 3:00 PM CDTPatient was scheduled to see today. I spoke with who informed me that i could to put her on the schedule at 0900 this morning. Patient son canceled her appointment and asked if could he bring her in at a later date. Patient will be seen by . Patient states she went to [facility] ER for a fall. elephone Encounter - Darlene Henderson MD - 01/10/2020 12:30 PM CDT When was she in the ER? Where? And [...] Office Visit Family Medicine Kevon Donis MD [address] [place] [address] Dr Mccarthy [place] [id number] [phone] Health Maintenance Due Date Last Done Comments [...] Addre ss Type Group MEDICARE MEDICARE PART [id number] 2003-Prese [phone] Medicare A & B 2 [id number] RADHA RAMOS [id number] [facility] MEDICAID OF [id number] 2018-Presen [id number] Medicaid [place] t 0 [id number] [place] [address] documented as of this encounter Advance Directives Name Relationship Healthcare Agent Communication Relationship Jose Guerrier Child Health Care Agent [email or web address] Obdulio Reyantonella Samson [place] Health Agent (Mobile)
--- OUTSIDE RECORDS SUMMARY | 2020-03-13 19:34 | XMS REPORT | Summary of Care ---
:1945 Author Organization [facility] - [facility] Address [address] [place] [id number] Care Team Providers Name Role Phone Katie Henderson MD Primary Care Provider Leah Poon Chemistry Associate Sammi Eason Insurance Hmo Reason for Referral Radiology Services (Routine) Status Reason Specialty Diagnoses / Referred By Referred To Procedures Contact Contact New Request Diagnostic Diagnoses Fall, sequela Contusion of rib on right side, sequela [place], Radiology Procedures XR RIBS 3 VW RIGHT MD Kevon [address] [place] [address] Dr [address] [place] [address] Reason for Visit Reason Comments Follow-up Fall Diabetes Mellitus II CAD Hyperlipidemia Chest wall pain Hypertension LAB WORK Refill Request Encounter Details Date Type Department Care Team Description 01/21/2020 Office Visit [facility] Kevon Donis T ype 2 diabetes mellitus with complication (Primary Dx); and Adult Primary Fall, sequela; Care- [address] Tenderness of chest wall; [address] [place] [address] 205 Contusion of rib on right side, sequela; Drive, [address] [place] [address] Coronary artery disease involving tonawanda coronary artery of ton[place]anda heart without angina pectoris; [place], [place] [phone] PAD (peripheral artery disease); [phone] Need for influenza vaccinati on [phone] Allergies Active Allergy Reactions Severity Noted Date Comments Morphine Hallucinations 06/28/2016 documented as of this encounter (statuses as of 01/24/2020) Medications Medication Sig Dispensed Refills Start End [...] Strip 11 Active diagnostic (Brand upon 0 ([email or web address] insurance MICROFILL) strip approval) Lancets (MICROLET Use [...] ULTRA Check sugars BID 100 Each 11 Active FINE LANCETS) 33 times a day. Dx 0 gauge Code E11.9. Brand MiscIndications: per insurance. Type 2 diabetes mellitus with complication, without long-term current use of insulin CETIRIZINE 10 mg TAKE 1 TABLET BY 90 tablet 1 Active tabletIndications MOUTH EVERY DAY 0 : Non-seasonal allergic rhinitis, unspecified trigger baclofen 5 mg Take 2.5 mg by 30 tablet 3 A ctive TabIndications: mouth at bedtime. 0 Other chronic pain JANUVIA 25 mg TAKE 1 TABLET BY [...] tabletIndications MOUTH DAILY 0 : Essential hypertension repaglinide 0.5 TAKE 1 TABLET BY 90 tablet 3 Active mg MOUTH BEFORE 0 tabletIndications LUNCH AND DINNER : Type 2 diabetes IF SUGAR 2 HOURS mellitus with AFTER MEAL IS complication, STILL >200 THEN without long-term INCREASE TO 2 current use of TABLETS BEFORE insulin LUNCH AND DINNER benzonatate 100 Take 1 capsule by 30 capsule 0 Active mg mouth 3 (three) 0 capsuleIndication times daily as s: Cough in adult needed for Cough. patient acetaminophen Take 1 tablet by 20 tablet 0 Active (TYLENOL 8 HOUR) mouth every 8 0 650 mg CR (eight) hours as tabletIndications needed for Pain. : Cough in adult patient fluticasone Use 1 [place] in 16 g 0 Act marge propionate 50 each nostril 0 mcg/actuation daily. nasal sprayIndications: Cough in adult patient albuterol-ipratro Inhale 1 Puff 4 4 g 1 Active pium 20-100 (four) times 0 mcg/actuation daily. inhalerIndication s: Cough in adult patient rivaroxaban Take 1 tablet by 90 tablet 1 A ctive (XARELTO) 20 mg mouth every 0 tabletIndications morning. : prevention of Indications: anginal pain in prevention of coronary artery anginal chest disease, PAF pain associated with coronary artery disease, PAF glipiZIDE 10 mg TAKE TWO (2) 180 tablet 1 Active tabletIndications TABLETS BY MOUTH 0 : Type 2 diabetes TWICE DAILY mellitus with BEFORE BREAKFAST complication AND DINNER XARELTO 20 mg TAKE 1 TABLET BY 30 tablet 2 01/21/20 Discontinued tabletIndications MOUTH DAILY 0 20 (Reorder) : PAD (peripheral artery disease), Coronary artery disease involving tonawanda coronary artery of tonawanda heart without angina pectoris GLIPIZIDE 10 mg TAKE TWO (2) 90 tablet 0 01/21/20 D iscontinued tabletIndications TABLETS BY MOUTH 0 20 (Reorder) : Type 2 diabetes TWICE DAILY mellitus with BEFORE BREAKFAST complication AND DINNER documented as of this encounter (statuses as of 01/24/2020) Active Problems Problem Noted Date Tenderness of chest wall 01/21/2020 Contusion of rib on right side, sequela 01/21/2020 Cough in adult patient 01/19/2020 Fall, sequela 01/19/2020 Gastrointestinal hemorrhage with hematemesis 0 Non-seasonal allergic rhinitis due to pollen 0 Non-seasonal allergic rhinitis, unspecified trigger Dyslipidemia 05/12/2019 Coronary artery disease involving tonawanda coronary brian ry of tonawanda heart 05/12/2019 without angina pectoris PAD (peripheral [...] Added automatically from request for kinsey arie [id number] Colonic mass 03/14/2017 Overview: Added automatically from request for kinsey arie [id number] Vulvar intraepithelial neoplasia (CHASE) grade 3 017 [...] Added automatically from request for kinsey sargent [id number] Hematuria 10/29/2016 10/29/2016 documented as of this [...] Sign Reading Time Taken Comments Blood Pressure 134/72 01/21/2020 4:47 PM CDT Pulse - - Temperature - - Respiratory Rate - - Oxygen Saturation - - Inhaled Oxygen Concentration - - Weight - - Height - - Body Mass Index - - documented in this encounter Patient Instructions Patient InstructionsKevon Donis MD - 01/21/2020 3:40 PM CDT Patient Education Avoiding Slips, Trips, and Falls for Healthcare Workers Common hazards like water spills and burned-out light bulbs can lead to serious, painful injuriesand could also limit your ability to respond to emergencies. Protect yourself, your coworkers, and your patients by doing what you can to create a hazard-free workplace. Clean up wet surfaces Anytime you see (or cause) a spill, clean it up right away. If you cant, terri it with a sign or paper towels and report it to the appropriate person for cleanup. Place paper towel and spill pad holders in areas where spills are likely. Wear slip-resistant shoes.Use only non-slip mats. Keep your area clutter-free and well-lit Every piece of equipment left out or file drawer left open is a hazard that can trip you up, particularly when its dark: Clean up clutter, especially in front of doors, in hallways, and on stairs. Organize electric cords to avoid tripping on them. Dont leave wheelchairs, cleaning supplies, handcarts, and other materials lying around. Turn on lights before entering a room or supply closet. Report burned-out light bulbs to maintenance promptly. Close file drawers before you walk away from them. Avoid shortcuts Taking a shortcut to save time can be risky. The more shortcuts you take, the greater your chance for taking a tumble: Find a ladder or a step stool when somethings out of easy reach, instead of using an object not meant for climbing. Never reach for a load higher than your shoulders. Never carry a load that you cant see over. If necessary, make more thanone trip, use supply carts, or ask for assistance. Use only designated walkways. Be sure that stairways have handrails on both sides. Sudden dropoffs or rises in the walkway should be eliminated or clearly marked with yellow warning paint. [employer] last reviewed this educational content on 05/29/201719993927-7764 The [employer] All rights reserved. This information is not intended as a substitute for professional medical care. Always follow your healthcare professional's instructions. documented in this encounter Progress Notes Kevon Donis MD - 01/21/2020 3:40 PM CDT CHIEF COMPLAINT: Follow-up, Fall, Diabetes Mellitus II, CAD, Hyperlipidemia, Chest wall pain, Hypertension, LAB WORK, and Refill Request HPI Leydi Guerrier is a 74 year old female who has a past medical history of Abnormal uterine bleeding, Anemia, unspecified type (02/01/2019), Blind, Confusion (02/11/2019), Coronary artery diseaseinvolving tonawanda coronary artery of tonawanda heart without angina pectoris (05/12/2019), Diffuse pain (10/11/2016), HLD (hyperlipidemia), HTN (hypertension), Osteomyelitis of fifth toe of right foot (02/11/2019), Other diabetic neurological complication associated with type 2 diabetes mellitus (10/17/2017), Overgrown toenails (10/17/2017), Type 2 diabetes mellitus with complication, unspecified penitentiary insulin use status (10/11/2016), Urinary incontinence, and [...] disease, Transfusion history, Trauma, or Tuberculosis. Patient presents for follow-up, notes she slid and fell a couple of weeks ago while trying to changeposition, did not land on the floor and was able to hold onto the chair, on her right-side, denies back or head trauma. Patient reports intermittent chest muscle discomforts, notes her chest wall is sore to touch. BP is 134/72, on lisinopril 10mg qDay Patient has DM-II s/p left great toe amputation, prior A1c 9.4. patient is on Glipizide 20mg BID, Januvia 25mg qDay and Repaglinide 0.5mg BID is blood glucose > 200. Patient has hx PAF, CAD and PAD, on Xarelto Patient has HLD, prior labs WNL. Patient report her intermittent cough is resolved. Patient is due influenza, shingles and tetanus vaccinations. 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 Past Surgical History: Procedure Laterality Date COLONOSCOPY N/A 03/20/2017 Surgeon: Ashlee Lundy MD; Location: [facility] OR [facility] COLONOSCOPY N/A 11/20/2018 Surgeon: Felicita Pineda MD; Location: [facility] OR Location ESOPHAGOGASTRODUODENOSCOPY N/A 11/20/2018 Surgeon: Felicita Pineda MD; Location: [facility] OR Location HYSTERECTOMY LAPAROSCOPIC ROBOTIC ASSISTED COLECTOMY 06/04/2017 LAPAROSCOPIC ROBOTIC ASSISTED HEMICOLECTOMY N/A 06/04/2017 Surgeon: Ashlee Lundy MD; Location[facility] REMOVAL OF SINGLE TOE,EACH STENT VULVAR BIOPSY (SHX) N/A 06/04/2017 Surgeon: Anoop De Luna; Location: [facility] Location ? Current Outpatient Medications Medication Sig Dispense Refill glipiZIDE 10 mg tablet TAKE TWO (2) TABLETS BY MOUTH TWICE DAILY BEFORE BREAKFAST AND DINNER 180tablet 1 rivaroxaban (XARELTO) 20 mg tablet Take 1 tablet by mouth every morning. Indications: preventionof anginal chest pain associated with coronary artery disease, PAF 90 tablet 1 acetaminophen (TYLENOL 8 HOUR) 650 mg CR [...] propionate 50 mcg/actuation nasal spray Use 1 [place] in each nostril daily. 16 g 0 repaglinide 0.5 mg tablet TAKE 1 [...] BY MOUTH TWICE DAILY 60 capsule 10 JANUVIA 25 mg tablet TAKE 1 TABLET BY MOUTH EVERY DAY 30 tablet 10 baclofen 5 mg Tab Take 2.5 mg by mouth at bedtime. 30 tablet 3 CETIRIZINE 10 mg tablet TAKE 1 TABLET BY MOUTH EVERY DAY 90 tablet 1 lancets (BD ULTRA FINE LANCETS) [facility] sugars BID times a day. Dx Code E11.9. [facility] insurance. 100 Each 11 ciprofloxacin HCl 500 [...] file Gets together: Not on file Attends temple service: Not on file Active member of [...] WC and walker nephew live with patient Review of Systems Constitutional: Negative for chills, fatigue and unexpected weight change. Eyes: Positive for visual disturbance. Cardiovascular: Negative for chest pain and palpitations. Gastrointestinal: Negative for constipation and diarrhea. Musculoskeletal: Positive for arthralgias, gait problem and myalgias. Skin: Positive for color change. Neurological: Negative for dizziness and weakness. Psychiatric/Behavioral: The patient is not nervous/anxious. Vitals: 01/21/20 1647 BP: 134/72 Physical Exam HENT: Head: Normocephalic. Blindness - bilaterally Neck: Normal range of motion. Neck supple. Cardiovascular: Normal rate and regular rhythm. Pulmonary/Chest: Effort normal. Abdominal: Soft. Bowel sounds are normal. She exhibits no distension. Musculoskeletal: Comments: Right chest wall tenderness to palpation s/p fall, no evidence of head trauma Neurological: She is alert. Wheelchair bound Skin: Skin is warm and dry. Psychiatric: Affect normal. LAB DATA Reviewed Last Lab Results Health Maintenance Due HGB A1C (% NGSP) Date Value 02/11/2019 9.4 (H) POCT HBA1C (%) Date Value 02/01/2019 9.3 (A) Diabetes related Health Maintenance Due Topic Date Due HgA1C 08/12/2019 URINE MICROALBUMIN 08/22/2019 Previous Pneumococcal / Influenza Immunizations Name Date Influenza High Dose 02/01/2019 Recent Bicycle Racer Visits None Recent Ophthalmology Visits None CREATININE (mg/dL) Date Value 02/20/2019 0.83 MICROALB U (ug/mL) Date Value 08/21/2018 185 (H) CHOL (mg/dL) Date Value 02/11/2019 126 TRIG (mg/dL) Date Value 02/11/2019 117 LDL CHOL (mg/dL) Date Value 02/11/2019 45 Diabetes Relevant Medication Classes Last refreshed: 01/21/2020 4:20 PM: Prescribed DONOVAN inhibitor Yes Last refreshed: 01/21/2020 4:20 PM: Prescribed ARBs No Last refreshed: 01/21/2020 4:20 PM: Prescribed statins No Last refreshed: 01/21/2020 4:20 PM: Prescribed antiplatelets No Last refreshed: 01/21/2020 4:20 PM: Prescribed aspirin No Last refreshed: 01/21/2020 4:20 PM: On Fibrates No Current as of: 01/21/2020 4:20 PM RADIOLOGY/IMAGING Reviewed ASSESSMENT/ PLAN Type 2 diabetes mellitus with complication - Prior A1c reviewed and discussed, diet modification discussed. Continue on Glipizide 20mg BID, Januvia 25mg qDay and Repaglinide 0.5mg BID is blood glucose > 200. Patient to keep Home blood glucose log TID meals - Labs as ordered Fall, sequela - Possible contusion of ribs and right chest wall, conservative management with Tylenol PRN. Fall precautions discussed - XR CHEST 2 VW; Future - XR RIBS 3 VW RIGHT; Future Coronary artery disease involving ton[place]anda coronary artery of tonawanda heart without angina pectoris - Complicated by PAD, PAF and HLD, prior labs reviewed and discussed. Dietary modification discussed - rivaroxaban (XARELTO) 20 mg tablet; Take 1 tablet by mouth every morning. Indications: prevention of anginal chest pain associated with coronary artery disease, PAF Dispense: 90 tablet; Refill: 1 Need for influenza vaccination - FLU VACC([id number]),65+ YRS,IM,HIGH DOSE QUAD FaceToFace Home Health Order I saw patient Leydi Guerrier in the [facility] on 01/21/2020 for the following medical conditions and is the primary reason for home health care: ICD-10-CM ICD-9-CM 1. Type 2 diabetes mellitus with complication E11.8 250.90 2. Fall, sequela W19.XXXS 909.4 E929.3 3. Tenderness of chest wall R07.89 786.52 4. Contusion of rib on right side, sequela S20.211S 906.3 5. Coronary artery disease involving tonawanda coronary artery of tonawanda heart without angina bycfttbbC34.10 414.01 6. PAD (peripheral artery disease) I73.9 443.9 7. Need for influenza vaccination Z23 V04.81 I certify, based on my findings, that the following services are medically necessary: Long-Term: Yes - 1 x visit to admit (Required to order PT/OT only) and Vitals/Medication Management Physical therapy: Yes - Evaluate and Treat Occupational therapy: Yes - Evaluate and Treat Speech language pathology: No Certified Home Health Aid: Yes Home Health Agency Chemistry Associate: Yes - Evaluate and Treat Leydi Guerrier has the following additional diagnoses: Patient Active Problem List Diagnosis UTI (urinary tract infection) Generalized abdominal pain Near syncope Type 2 diabetes mellitus with complication Diffuse pain S/P hysterectomy Vulvar lesion Blind Vulvar intraepithelial neoplasia (CHASE) grade 3 Colonic mass Malignant neoplasm of colon, unspecified part of colon Colon cancer Other diabetic neurological complication associated with type 2 diabetes mellitus Overgrown toenails Urine incontinence Hospital discharge follow-up Essential hypertension Anemia, unspecified type Breast cancer screening by mammogram Senile osteoporosis Need for influenza vaccination Fall in home, initial encounter Non-healing open wound of toe, initial encounter Osteomyelitis of fifth toe of right foot Confusion Vaginal bleeding PAF (paroxysmal atrial fibrillation) Dyslipidemia Coronary artery disease involving ton[place]anda coronary artery of tonawanda heart without angina pectoris PAD (peripheral artery disease) Gastrointestinal hemorrhage with hematemesis Non-seasonal allergic rhinitis due to pollen Non-seasonal allergic rhinitis, unspecified trigger Cough in adult patient Fall, sequela Tenderness of chest wall Contusion of rib on right side, sequela I certify my clinical findings/ diagnoses support that this patient is homebound per CMS guidelines: A taxing effort exists for Leydi Guerrier to leave home due to: Poor endurance due to: Per HPI, Assessment and plan, including blindness, HTN, DM-II and increased fall risks I certify that this patient is under the care of the [facility] and that I had a [id number] encounter that meets the [facility] [id number]-af-[id number] requirements with this patient as noted above. 01/21/2020 4:37 PM Manual Ultra-lightweight wheelchair Face to Face Office Visit Leydi Guerrier is here for evaluation for custom manual wheeled mobility. Leydi Guerrier has a history of Type 2 diabetes mellitus with complication [E11.8] and due to functional deficits related to this diagnosis. Leydi Guerrier is unable to walk or use a single point cane, standard walker, rolling walker, standard manual wheelchair to safely access (his/her) home environment and requires the use of a custom ultra-lightweight manual wheelchair with specialized seating system. Leydi Guerrier and caregivers are willing and competent in the use of a manual wheelchair Leydi Guerrier is non-ambulatory and is able to functionally propel a custom manual wheelchair. Leydi Guerrier home is accessible for the manual mobility device. Patients is independent with effective weight shifts or pressure redistribution andthe < prevention and/or history of pressure injury>. Leydi Guerrier has absent/impaired sensation on sitting surface and requires a pressure redistribution seat cushion. Referral is being made to a licensed Occupational Therapist for custom manual wheeled mobility evaluation and recommendations. MD Signature Date Return in about 3 months (around 04/22/2020), or if symptoms worsen or fail to improve. Preventive Care: Medication reconciliation, patient education and anticipatory guidance completed. All questions and concerns addressed. AVS given, handout provided. Nicholas Pretty MS3 4:44 PM I personally examined the patient on 01/21/2020 and agree with MS 3 (Timoteo Pretty) note as written,including any changes or additions to the medical student's note. I actively participated in the decision making process. Please see note for additional details. Kevon Donis MD, MPH, AAHIVS Clinical Tool Shaper Setup Operator, Department of Family Medicine [facility] 01/21/2020 4:38 PM documented in this encounter Plan of Treatment Date Type Specialty Care Team Description 04/27/2020 Office Visit Family Medicine Kevon Donis MD [address] [place] [address] Dr [address] [place] [address] 15 [phone] Name Type Priority Associated Diagnoses Order S chedule XR CHEST 2 VW IMAGING Routine Fall, sequela Expected: Tenderness of chest 01/21/20 20, wall Expires: 01/20/2021 XR RIBS 3 VW RIGHT IMAGING Routine Fall, sequela Expected: Contusion of rib on 01/21/20 20, right side, sequela Expires: 01/20/2021 CBC WITH DIFF LAB Routine Type 2 diabetes Expected: mellitus with 01/21/2020, complication Expires: 01/20/2021 COMP. METABOLIC PANEL LAB Routine Type 2 diabetes Exp ected: ([id number]) mellitus with 01/21/2020, complication Expires: 01/20/2021 FREE T4 LAB Routine Type 2 diabetes Expected: mellitus with 01/21/2020, complication Expires: 01/20/2021 FREE T3 LAB Routine Type 2 diabetes Expected: mellitus with 01/21/2020, complication Expires: 01/20/2021 LIPID PANEL LAB Routine Type 2 diabetes Expected: ([id number])(TOTAL mellitus with 01/21/2020, CHOLESTEROL, complication Expires: TRIGLYCERIDES, HDL) 01/21/20 21 GLYCOSYLATED LAB Routine Type 2 diabetes Expected: HEMOGLOBIN (A1C) mellitus with 01/21/2020 , complication Expires: 01/20/2021 THYROID STIMULATING LAB Routine Type 2 diabetes Expec donavan: HORMONE mellitus with 01/21/2020, complication Expires: 01/20/2021 MICROALBUMIN URINE LAB Routine Type 2 diabetes Expect ed: mellitus with 01/21/2020, complication Expires: 01/20/2021 FLU IMMUNIZATION/INJ Routine Need for influenza Order ed: VACC(),65+ ECTION vaccination 01/21/20 20 YRS,IM,HIGH DOSE QUAD Health Maintenance Due Date Last Done Comments [...] Diagnosis Type 2 diabetes mellitus with complicati on - Primary Fall, sequela Tenderness of chest wall Painful respiration Contusion of rib on right side, sequela Coronary artery disease involving ton[place]anda coronary artery of ton[place]anda heart without angina pectoris PAD (peripheral artery disease) Unspecified disorders of arteries and ar terioles Need for influenza vaccination Need for prophylactic vaccination and in oculation against influenza documented in this encounter Insurance Payer Benefit Plan / Subscriber ID Effective Dates Phone Addre ss Type Group MEDICARE MEDICARE PART [id number] 2003-Presbreanna [phone] [address] Medicare A & [address] nt [id number] [place] [address] [facility] MEDICAID OF [id number] 2018-Becky [phone] [address] [place] t 0 [id number] [place] [address] (Home) [place] [address] documented as of this encounter Advance Directives Name Relationship Healthcare Agent Communication Relationship Jose Guerrier Child Health Care Agent [email or web address] Obdulio Rey Nephliza [facility] [place] Agent (Mobile)
--- OUTSIDE RECORDS SUMMARY | 2020-03-13 19:34 | XMS REPORT | Summary of Care ---
:1945 Author Organization [facility] - [facility] Address [address] [place] [address] Care Team Providers Name Role Phone Katie Henderson MD Primary Care Provider Leah Poon Grails Web Application Developer Sammi Eason Insurance Hmo Reason for Referral Radiology Services (Routine) Status Reason Specialty Diagnoses / Referred By Referred To Procedures Contact Contact New Request Diagnostic Diagnoses Fall, sequela Contusion of rib on right side, sequela [place], Radiology Procedures XR RIBS 3 VW RIGHT MD Kevon [address] [place] [address] Dr [address] [place] [address] Reason for Visit Reason Comments Follow-up Fall Diabetes Mellitus II CAD Hyperlipidemia Chest wall pain Hypertension LAB WORK Refill Request Encounter Details Date Type Department Care Team Description 01/21/2020 Office Visit [facility] Pediatric Kevon Donis T ype 2 diabetes mellitus with complication (Primary Dx); and Adult Primary Fall, sequela; Care- [address] Tenderness of chest wall; [address] [place] [address] 205 Contusion of rib on right side, sequela; Drive, [address] [place] [address] Coronary artery disease involving [place] coronary artery of [place] heart without angina pectoris; [place], [place] [phone] PAD (peripheral artery disease); [phone] Need for influenza vaccinati on [phone] Allergies Active Allergy Reactions Severity Noted Date [...] Strip 11 Active diagnostic (Brand upon 0 ([employer] insurance MICROFILL) strip approval) Lancets (MICROLET Use [...] Cough in adult patient fluticasone Use 1 [place] in 16 g 0 Act marge propionate [...] (peripheral artery disease), Coronary artery disease involving [place] coronary artery of [place] heart without angina pectoris GLIPIZIDE 10 mg [...] trigger Dyslipidemia 05/12/2019 Coronary artery disease involving [place] coronary brian ry of [place] heart 05/12/2019 without angina pectoris PAD (peripheral [...] Added automatically from request for kinsey arie [id number] Colonic mass 03/14/2017 Overview: Added automatically from request for kinsey arie [id number] Vulvar intraepithelial neoplasia (CHASE) grade 3 017 [...] Added automatically from request for kinsey sargent [id number] Hematuria 10/29/2016 10/29/2016 documented as of this [...] or clearly marked with yellow warning paint. Chayamuni last reviewed this educational content on 05/29/201719997454-0324 [employer]. All rights reserved. This information is not [...] (02/01/2019), Blind, Confusion (02/11/2019), Coronary artery diseaseinvolving [place] coronary artery of [place] heart without angina pectoris (05/12/2019), Diffuse pain (10/11/2016), HLD (hyperlipidemia), HTN (hypertension), Osteomyelitis of fifth toe of right foot (02/11/2019), Other diabetic neurological complication associated with type 2 diabetes mellitus (10/17/2017), Overgrown toenails (10/17/2017), Type 2 diabetes mellitus with complication, unspecified long-term insulin use status (10/11/2016), Urinary incontinence, and [...] eyes Confusion 02/11/2019 Coronary artery disease involving [place] coronary artery of [place] heart without angina pectoris05/12/2019 Diffuse pain 10/11/2016 HLD (hyperlipidemia) HTN (hypertension) Osteomyelitis of fifth toe of right foot 02/11/2019 Other diabetic neurological complication associated with type 2 diabetes mellitus 10/17/2017 Overgrown toenails 10/17/2017 Type 2 diabetes mellitus with complication, unspecified long-term insulin use status 10/11/2016 Urinary incontinence Vulvar intraepithelial neoplasia (CHASE) grade 3 01/31/2017 ? Past Surgical History: Procedure Laterality Date COLONOSCOPY N/A 03/20/2017 Surgeon: Ashlee Lundy MD; Location: [facility] COLONOSCOPY N/A 11/20/2018 Surgeon: Felicita Pineda MD; Location: [facility] OR Location ESOPHAGOGASTRODUODENOSCOPY N/A 11/20/2018 Surgeon: Felicita Pineda MD; Location: [facility] OR Location HYSTERECTOMY LAPAROSCOPIC ROBOTIC ASSISTED COLECTOMY [...] propionate 50 mcg/actuation nasal spray Use 1 [place] in each nostril daily. 16 g 0 [...] lancets (BD ULTRA FINE LANCETS) [facility] Check sugars BID times a day. Dx Code E11.9. [facility] insurance. 100 Each 11 ciprofloxacin HCl 500 [...] file Gets together: Not on file Attends rastafari service: Not on file Active member of [...] Name Date Influenza High Dose 02/01/2019 Recent Surgical Endoscopist Visits None Recent Ophthalmology Visits None CREATININE [...] VW RIGHT; Future Coronary artery disease involving [place] coronary artery of [place] heart without angina pectoris - Complicated by PAD, PAF and HLD, prior labs reviewed and discussed. Dietary modification discussed - rivaroxaban (XARELTO) 20 mg tablet; Take 1 tablet by mouth every morning. Indications: prevention of anginal chest pain associated with coronary artery disease, PAF Dispense: 90 tablet; Refill: 1 Need for influenza vaccination - FLU VACC([id number]),65+ YRS,IM,HIGH DOSE QUAD FaceToFace Home Health Order I saw patient Leydi Guerrier in the [facility] on 01/21/2020 for the following medical conditions and is the primary reason for home health care: ICD-10-CM ICD-9-CM 1. Type 2 diabetes mellitus with complication E11.8 250.90 2. Fall, sequela W19.XXXS 909.4 E929.3 3. Tenderness of chest wall R07.89 786.52 4. Contusion of rib on right side, sequela S20.211S 906.3 5. Coronary artery disease involving [place] coronary artery of [place] heart without angina dyceailcJ85.10 414.01 6. PAD (peripheral artery disease) I73.9 443.9 7. Need for influenza vaccination Z23 V04.81 I certify, based on my findings, that the following services are medically necessary: Long Term: Yes - 1 x visit to admit (Required to order PT/OT only) and Vitals/Medication Management Physical therapy: Yes - Evaluate and Treat Occupational therapy: Yes - Evaluate and Treat Speech language pathology: No Certified Home Health Aid: Yes Home Health Agency [employer] Web Application Developer: Yes - Evaluate and Treat Leydi Guerrier [...] atrial fibrillation) Dyslipidemia Coronary artery disease involving [place] coronary artery of [place] heart without angina pectoris PAD (peripheral artery [...] patient is under the care of the [facility] and that I had a [id number] encounter that meets the [facility] [id number] requirements with this patient as noted above. [...] details. Kevon Donis MD, MPH, AAHIVS Clinical Workers' Compensation Hearings Officer, Department of Family Medicine [facility] 01/21/2020 4:38 PM documented in this encounter Plan of Treatment Date Type Specialty Care Team Description 04/27/2020 Office Visit Family Medicine Kevon Donis MD [address] [place] [address] Dr [address] [place] [address] 15 [phone] Name Type Priority Associated Diagnoses Order S [...] LAB Routine Type 2 diabetes Exp ected: (06088) mellitus with 01/21/2020, complication Expires: 01/20/2021 FREE T4 LAB Routine Type 2 diabetes Expected: mellitus with 01/21/2020, complication Expires: 01/20/2021 FREE T3 LAB Routine Type 2 diabetes Expected: mellitus with 01/21/2020, complication Expires: 01/20/2021 LIPID PANEL LAB Routine Type 2 diabetes Expected: (98005)(TOTAL mellitus with 01/21/2020, CHOLESTEROL, complication Expires: TRIGLYCERIDES, [...] right side, sequela Coronary artery disease involving [place] coronary artery of [place] heart without angina pectoris PAD (peripheral artery disease) Unspecified disorders of arteries and ar terioles Need for influenza vaccination Need for prophylactic vaccination and in oculation against influenza documented in this encounter Insurance Payer Benefit Plan / Subscriber ID Effective Dates Phone Addre ss Type Group MEDICARE MEDICARE PART [id number] 2003-Presbreanna [phone] [address] Medicare A & B nt 2 [id number] [place] [address] [facility] MEDICAID OF [id number] 2018-Becky [phone] [address] Medicaid [place] t 0 [id number] [place] [address] (Home) [place] [address] documented as of this encounter Advance Directives Name Relationship Healthcare Agent Communication Relationship Jose Guerrier Child Health Care Agent Obdulio Rey Nephliza [facility] [phone] Agent (Mobile)
--- OUTSIDE RECORDS SUMMARY | 2020-03-13 19:34 | XMS REPORT | Summary of Care ---
:1945 Author Organization [facility] Address [address] [place] [address] Care Team Providers Name Role Phone Katie Henderson MD Primary Care Provider Leah Poon Rehabilitation Tech Sammi Eason Insurance Hmo Reason for Visit Reason Comments Refill Request Encounter Details Date Type Department Care Team Description 01/20/2020 Refill [facility] Pediatric and Anne Henderson, Refill Request Adult Primary Care- MD Tineo [address] [place] [address] [address] [address] [address] [place] [address] [place] [address] [phone] Allergies Active Allergy Reactions Severity Noted Date Comments Morphine Hallucinations 06/28/2016 documented as of this encounter (statuses as of 01/27/2020) Medications Medication Sig Dispensed Refills Start End [...] DAY Other chronic pain NEEDED FOR PAIN repaglinide 0.5 mg TAKE 1 TABLET BY 90 tablet 3 Active tabletIndications: MOUTH BEFORE LUNCH 0 Type 2 diabetes AND DINNER IF mellitus with SUGAR 2 HOURS complication, AFTER MEAL IS without long-term STILL >200 THEN current use of INCREASE TO 2 insulin TABLETS BEFORE LUNCH AND DINNER benzonatate 100 mg Take 1 capsule by 30 capsule 0 Active capsuleIndications mouth 3 (three) 0 : Cough in adult times daily as patient needed for Cough. acetaminophen Take 1 tablet by 20 tablet 0 Active (TYLENOL 8 HOUR) mouth every 8 0 650 mg CR (eight) hours as tabletIndications: needed for Pain. Cough in adult patient fluticasone Use 1 Lilly in 16 g 0 Act marge propionate 50 each nostril 0 mcg/actuation daily. nasal sprayIndications: Cough in adult patient albuterol-ipratrop Inhale 1 Puff 4 4 g 1 Active ium 20-100 (four) times 0 mcg/actuation daily. inhalerIndications : Cough in adult patient LISINOPRIL 10 mg TAKE (1) TABLET BY 30 tablet 0 Active tabletIndications: MOUTH DAILY 0 Essential FOLLOW UP WITH hypertension CHRISTOPHER DONIS MD [phone] LISINOPRIL 10 mg TAKE 1 TABLET BY 30 tablet 0 Discontinued tabletIndications: MOUTH DAILY 0 20 Essential hypertension documented as of this encounter (statuses as of 01/27/2020) Active Problems Problem Noted Date Tenderness of chest wall 01/21/2020 Contusion of rib on right side, sequela 01/21/2020 Cough in adult patient 01/19/2020 Fall, sequela 01/19/2020 Gastrointestinal hemorrhage with hematemesis 0 Non-seasonal allergic rhinitis due to pollen 0 Non-seasonal allergic rhinitis, unspecified trigger Dyslipidemia 05/12/2019 Coronary artery disease involving [place] coronary brian ry of [place] heart 05/12/2019 without angina pectoris PAD [...] Added automatically from request for kinsey sargent [id number] Colonic mass 03/14/2017 Overview: Added automatically from request for kinsey sargent [id number] 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 S/P hysterectomy 10/29/2016 Vulvar lesion 10/29/2016 Type 2 diabetes mellitus with complication 10/11/2016 Diffuse pain 10/11/2016 Near syncope 06/28/2016 UTI (urinary tract infection) 05/24/2016 Generalized abdominal pain 05/24/2016 documented as of this encounter (statuses as of 01/27/2020) Resolved Problems Problem Noted Date Resolved Date Rectal bleeding 11/04/2018 01/21/2020 Overview: Added automatically from request for kinsey sargent [id number] Hematuria 10/29/2016 10/29/2016 documented as of this encounter (statuses as of 01/27/2020) Immunizations Name Administration Dates Next Due Influenza [...] Team Description 04/27/2020 Office Visit Family Medicine Christopher Donis MD [address] [place] [address] Dr Mccarthy [place], [place] [address] [phone] Health Maintenance Due Date Last Done Comments [...] Diagnoses Diagnosis Essential hypertension Unspecified essential hypertension PAD (peripheral artery disease) Unspecified disorders of arteries and ar terioles Coronary artery disease involving [place] coronary artery of [place] heart without angina pectoris Type 2 diabetes mellitus with complicati on documented in this encounter Insurance Payer Benefit Plan / Subscriber ID Effective Dates Phone Addre ss Type Group MEDICARE MEDICARE PART [id number] 2003-Prese [phone] [address] Medicare A & B 2 [id number] [place] [address] [facility] MEDICAID OF [id number] 2018-Presen [phone] [address] Medicaid [place] t 0 [id number] [place] [address] documented as of this encounter Advance Directives Name Relationship Healthcare Agent Communication Relationship Jose Guerrier Child Health Care Agent [email or web address] Obdulio Rey [facility] Agent (Mobile)
--- OUTSIDE RECORDS SUMMARY | 2020-03-13 19:34 | XMS REPORT | Summary of Care ---
:1945 Author Organization [facility] - [facility] Address [address] [place] [address] Care Team Providers Name Role Phone Katie Mckeon MD Primary Care Provider Leah Poon Collections Representative Sammi Eason Insurance Hmo Reason for Visit Reason Comments Notification Encounter Details Date Type Department Care Team Description 01/26/2020 Telephone [facility] Pediatric and Anne Mckeon, Notification Adult Primary Care- MD Tineo [address] [place] [address] [address] [place] [address] [place] [address] [phone] Allergies Active Allergy Reactions Severity Noted Date Comments Morphine Hallucinations 06/28/2016 documented as of this encounter (statuses as of 01/27/2020) Medications Medication Sig Dispensed Refills Start Date [...] pain TIMES A DAY NEEDED FOR PAIN repaglinide 0.5 mg TAKE [...] Cough in adult patient fluticasone Use 1 [place] in each 16 g 0 01/13/2020 Active [...] trigger Dyslipidemia 05/12/2019 Coronary artery disease involving [place] coronary brian ry of [place] heart 05/12/2019 without angina pectoris PAD (peripheral [...] Added automatically from request for kinsey sargent [id number] Colonic mass 03/14/2017 Overview: Added automatically from request for kinsey sargent [id number] Vulvar intraepithelial neoplasia (CHASE) grade 3 017 [...] Added automatically from request for kinsey sargent [id number] Hematuria 10/29/2016 10/29/2016 documented as of this [...] Notes Telephone Encounter - Jenny Byers - 01/26/2020 2:39 PM CDTHailey with [facility] is calling to notify DR MCKEON that patient was admitted to service for physcical / occupational therapy. Per Delia DR DONIS had ordered home health aide buther insurance will not cover it since she is under a medicare provider. documented in this encounter Plan of Treatment Date Type Specialty Care Team Description 04/27/2020 Office Visit Family Medicine Kevon Donis MD [address] [place] [address] Dr [address] [place], [place] [address] [phone] Health Maintenance Due Date Last Done Comments [...] Addre ss Type Group MEDICARE MEDICARE PART [id number] 2003-Prese [phone] [address] Medicare A & B nt 2 [id number] RADHA RAMOS [id number] [facility] MEDICAID OF [id number] 2018-Becky [phone] [address] Medicaid [place] t 0 [id number] [place] [address] documented as of this encounter Advance Directives Name Relationship Healthcare Agent Communication Relationship Jose Guerrier Child Health Care Agent [email or web address] Obdulio Rey [facility] Agent (Mobile)
--- OUTSIDE RECORDS SUMMARY | 2020-03-13 19:35 | XMS REPORT | Summary of Care ---
:1945 Author Organization [facility] - [facility] Address [address] [place] [address] Care Team Providers Name Role Phone Katie Mckeon MD Primary Care Provider Leah Poon Charge Coordinator Sammi Eason Insurance Hmo Reason for Visit Reason Comments Notification Encounter Details Date Type Department Care Team Description 01/26/2020 Telephone [facility] Pediatric and Anne Mckeon, Notification Adult Primary Care- MD Tineo [address] [place] [address] [address] [place] [address] [place] [address] [phone] Allergies Active Allergy Reactions Severity Noted Date Comments Morphine Hallucinations 06/28/2016 documented as of this encounter (statuses as of 02/01/2020) Medications Medication Sig Dispensed Refills Start End [...] sugar Use BID, DX E11.9 100 Strip Active diagnostic (Brand upon 0 ([employer] insurance [...] mouth at bedtime. 0 Other chronic pain PREGABALIN 300 mg TAKE 1 CAPSULE BY 60 capsule 10 Active capsuleIndication MOUTH TWICE DAILY 0 s: Other chronic pain Diclofenac Sodium APPLY 2-4 GRAMS 100 g 10 Active 1 % TOPICALLY THREE 0 gelIndications: TIMES A DAY Other chronic NEEDED FOR PAIN pain repaglinide 0.5 TAKE 1 TABLET BY 90 [...] Cough in adult patient fluticasone Use 1 [place] in 16 g 0 Act marge propionate [...] mellitus with BEFORE BREAKFAST complication AND DINNER JANUVIA 25 mg TAKE 1 TABLET BY 30 tablet 10 01/30/20 Discontinued tablet MOUTH EVERY DAY 0 20 (Reo rder) documented as of this encounter (statuses as of 02/01/2020) Active Problems Problem Noted Date Tenderness of chest wall 01/21/2020 Contusion of rib on right side, sequela 01/21/2020 Cough in adult patient 01/19/2020 Fall, sequela 01/19/2020 Gastrointestinal hemorrhage with hematemesis 0 Non-seasonal allergic rhinitis due to pollen 0 Non-seasonal allergic rhinitis, unspecified trigger Dyslipidemia 05/12/2019 Coronary artery disease involving [place] coronary brian ry of [place] heart 05/12/2019 without angina pectoris PAD (peripheral [...] Added automatically from request for kinsey sargent [id number] Colonic mass 03/14/2017 Overview: Added automatically from request for kinsey sargent [id number] 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 S/P hysterectomy 10/29/2016 Vulvar lesion 10/29/2016 Type 2 diabetes mellitus with complication 10/11/2016 Diffuse pain 10/11/2016 Near syncope 06/28/2016 UTI (urinary tract infection) 05/24/2016 Generalized abdominal pain 05/24/2016 documented as of this encounter (statuses as of 02/01/2020) Resolved Problems Problem Noted Date Resolved Date Rectal bleeding 11/04/2018 01/21/2020 Overview: Added automatically from request for kinsey sargent [id number] Hematuria 10/29/2016 10/29/2016 documented as of this encounter (statuses as of 02/01/2020) Immunizations Name Administration Dates Next Due Influenza [...] this encounter Miscellaneous Notes Telephone Encounter - Kevon Donis MD - 02/01/2020 12:07 PM CSTPatient also has Medicaid that should cover it, but will discuss further and alternative plans regarding Home Health Aide elephone Encounter - Jenny Byers - 01/26/2020 2:39 PM CDTHailey with [facility] is calling to notify DR MCKEON that patient was admitted to service for physcical / occupational therapy. Per Delia DR DONIS had ordered home health aide buther insurance will not cover it since she is under a medicare provider. documented in this encounter Plan of Treatment Date Type Specialty Care Team Description 04/27/2020 Office Visit Family Medicine Kevon Donis MD [address] [place] [address] [address] [phone] Health Maintenance Due Date Last Done Comments [...] Addre ss Type Group MEDICARE MEDICARE PART [id number] 2003-Presbreanna [phone] [address] Medicare A & B nt 2 [id number] RADHA RAMOS [id number] [facility] MEDICAID OF [id number] 2018-Becky [phone] [address] Medicaid [place] t 0 [id number] [place] [address] documented as of this encounter Advance Directives Name Relationship Healthcare Agent Communication Relationship Jose Guerrier [facility] Health Care Agent [email or web address] Obdulio Samson [facility] Agent (Mobile)
--- OUTSIDE RECORDS SUMMARY | 2020-03-13 19:35 | XMS REPORT | Summary of Care ---
:1945 Author Organization [facility] - [facility] Address [address] [place] [address] Care Team Providers Name Role Phone Katie Henderson MD Primary Care Provider Leah Poon Swage Tender Sammi Eason Insurance Hmo Reason for Visit Reason Comments Refill Request Encounter Details Date Type Department Care Team Description 01/31/2020 Refill [facility] Pediatric and Anne Henderson, Refill Request Adult Primary Care- MD Tineo [address] [place] [address] [address] [address] [address] [place] [address] [place] [address] [phone] Allergies Active Allergy Reactions Severity Noted Date Comments Morphine Hallucinations 06/28/2016 documented as of this encounter (statuses as of 02/04/2020) Medications Medication Sig Dispensed Refills Start Date [...] TabIndications: mouth at bedtime. Other chronic pain PREGABALIN 300 mg TAKE [...] Cough in adult patient fluticasone Use 1 [place] in each 16 g 0 01/13/2020 Active propionate 50 nostril daily. mcg/actuation nasal sprayIndications: Cough in adult patient albuterol-ipratropiu Inhale 1 Puff 4 4 g 1 01/13/2020 Active m 20-100 (four) times daily. mcg/actuation inhalerIndications: Cough in adult patient LISINOPRIL 10 mg TAKE (1) TABLET BY 30 tablet 0 01/27/2020 Active tabletIndications: MOUTH DAILY Essential FOLLOW UP WITH hypertension CHRISTOPHER DONIS MD [phone] rivaroxaban Take 1 tablet by 90 tablet [...] BEFORE mellitus with BREAKFAST AND complication DINNER SITagliptin Take 1 tablet by 30 tablet 10 01/30/2020 Active (JANUVIA) 25 mg mouth daily. tabletIndications: Type 2 diabetes mellitus with complication documented as of this encounter (statuses as of 02/04/2020) Active Problems Problem Noted Date Tenderness of chest wall 01/21/2020 Contusion of rib on right side, sequela 01/21/2020 Cough in adult patient 01/19/2020 Fall, sequela 01/19/2020 Gastrointestinal hemorrhage with hematemesis 0 Non-seasonal allergic rhinitis due to pollen 0 Non-seasonal allergic rhinitis, unspecified trigger Dyslipidemia 05/12/2019 Coronary artery disease involving [place] coronary brian ry of [place] heart 05/12/2019 without angina pectoris PAD (peripheral [...] Added automatically from request for kinsey sargent [id number] Colonic mass 03/14/2017 Overview: Added automatically from request for kinsey sargent [id number] 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 S/P hysterectomy 10/29/2016 Vulvar lesion 10/29/2016 Type 2 diabetes mellitus with complication 10/11/2016 Diffuse pain 10/11/2016 Near syncope 06/28/2016 UTI (urinary tract infection) 05/24/2016 Generalized abdominal pain 05/24/2016 documented as of this encounter (statuses as of 02/04/2020) Resolved Problems Problem Noted Date Resolved Date Rectal bleeding 11/04/2018 01/21/2020 Overview: Added automatically from request for kinsey sargent [id number] Hematuria 10/29/2016 10/29/2016 documented as of this encounter (statuses as of 02/04/2020) Immunizations Name Administration Dates Next Due Influenza [...] this encounter Miscellaneous Notes Telephone Encounter - Mel Courtney LVN - 01/31/2020 9:10 AM CSTPatient is due for a HgA1C. Unable to refill per [facility] refill protocol. Will route to the provider to review. Mel Courtney LVN 01/31/2020 9:11 AM documented in this encounter Plan of Treatment Date Type Specialty Care Team Description 04/27/2020 Office Visit Family Medicine Christopher Donis MD [address] [place] [address] Dr Mccarthy [place], [place] [address] [phone] Health Maintenance Due Date Last Done Comments [...] Addre ss Type Group MEDICARE MEDICARE PART [id number] 2003-Presbreanna [phone] Medicare A & B nt 2 [id number] RADHA RAMOS [id number] [facility] MEDICAID OF [id number] 2018-Becky [phone] [address] Medicaid [place] t 0 [id number] [place] [address] documented as of this encounter Advance Directives Name Relationship Healthcare Agent Communication Relationship Jose Guerrier [facility] Health Care Agent [email or web address] Obdulio Samson [facility] Agent (Mobile)
--- OUTSIDE RECORDS SUMMARY | 2020-03-13 19:35 | XMS REPORT | Summary of Care ---
:1945 Author Organization [facility] Address [address] [place] [address] Care Team Providers Name Role Phone Katie Henderson MD Primary Care Provider Leah Poon Vice Chancellor Sammi Eason Insurance Hmo Reason for Visit Reason Comments Refill Request Encounter Details Date Type Department Care Team Description 01/27/2020 Refill [facility] Family Medicine Solomon Henderson, Refill Request - Rivka VARGAS [address] [place] [address] Dr bird 146 [facility] [place] [place] [address] [facility] [address] [place], [place] [address] [phone] Allergies Active Allergy Reactions Severity Noted Date Comments Morphine Hallucinations 06/28/2016 documented as of this encounter (statuses as of 01/30/2020) Medications Medication Sig Dispensed Refills Start End [...] Cough in adult patient fluticasone Use 1 [place] in 16 g 0 Act marge propionate 50 each nostril 0 mcg/actuation daily. nasal sprayIndications: Cough in adult patient albuterol-ipratro Inhale 1 Puff 4 4 g 1 Active pium 20-100 (four) times 0 mcg/actuation daily. inhalerIndication s: Cough in adult patient LISINOPRIL 10 mg TAKE (1) TABLET 30 tablet 0 Active tabletIndications BY MOUTH DAILY 0 : Essential FOLLOW UP WITH hypertension CHRISTOPHER DONIS MD [phone] rivaroxaban Take 1 tablet by 90 tablet [...] mellitus with BEFORE BREAKFAST complication AND DINNER SITagliptin Take 1 tablet by 30 tablet 10 A ctive (JANUVIA) 25 mg mouth daily. 0 tabletIndications : Type 2 diabetes mellitus with complication JANUVIA 25 mg TAKE 1 TABLET BY 30 tablet 10 01/30/20 Discontinued tablet MOUTH EVERY DAY 0 20 (Reo rder) documented as of this encounter (statuses as of 01/30/2020) Active Problems Problem Noted Date Tenderness of [...] Added automatically from request for kinsey sargent [id number] Colonic mass 03/14/2017 Overview: Added automatically from request for kinsey sargent [id number] 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 S/P hysterectomy 10/29/2016 Vulvar lesion 10/29/2016 Type 2 diabetes mellitus with complication 10/11/2016 Diffuse pain 10/11/2016 Near syncope 06/28/2016 UTI (urinary tract infection) 05/24/2016 Generalized abdominal pain 05/24/2016 documented as of this encounter (statuses as of 01/30/2020) Resolved Problems Problem Noted Date Resolved Date Rectal bleeding 11/04/2018 01/21/2020 Overview: Added automatically from request for kinsey sargent [id number] Hematuria 10/29/2016 10/29/2016 documented as of this encounter (statuses as of 01/30/2020) Immunizations Name Administration Dates Next Due Influenza [...] this encounter Miscellaneous Notes Telephone Encounter - Tootie Colby - 01/27/2020 10:02 AM CDTPharmacy called in requesting refill on JANUVIA 25 mg tablet rivaroxaban (XARELTO) 20 mg tablet documented in this encounter Plan of Treatment Date Type Specialty Care Team Description 04/27/2020 Office Visit Family Medicine Christopher Donis MD [address] [place] [address] Dr Johnson [address] [place] [address] [phone] Health Maintenance Due Date Last Done Comments [...] diabetes mellitus with complicati on - Primary PAD (peripheral artery disease) Unspecified disorders of arteries and ar terioles Coronary artery disease involving [place] coronary artery of [place] heart without angina pectoris documented in this encounter Insurance Payer Benefit Plan / Subscriber ID Effective Dates Phone Addre ss Type Group MEDICARE MEDICARE PART [id number] 2003-Prese [phone] [address] Medicare A & B nt 2 [id number] [place] [address] [facility] MEDICAID OF [id number] 2018-Presen [phone] [address] Medicaid [facility] 0 [id number] [place] [address] documented as of this encounter Advance Directives Name Relationship Healthcare Agent Communication Relationship Jose Guerrier [facility] Health Care Agent [email or web address] Obdulio Samson [facility] Agent (Mobile)
--- OUTSIDE RECORDS SUMMARY | 2020-03-13 19:36 | XMS REPORT | Summary of Care ---
:1945 Author Organization [facility] - [facility] Address [address] [place] [address] Care Team Providers Name Role Phone Katie Henderson MD Primary Care Provider Leah Poon Fire Alarm Operator Sammi Eason Insurance Hmo Reason for Visit Reason Comments Refill Request Encounter Details Date Type Department Care Team Description 02/17/2020 Refill [facility] Pediatric and Anne Henderson, Refill Request Adult Primary Care- MD Tineo [address] [place] [address] Dr [address] [address] [address] [place] [address] [place] [address] [phone] Allergies Active Allergy Reactions Severity Noted Date Comments Morphine Hallucinations 06/28/2016 documented as of this encounter (statuses as of 02/26/2020) Medications Medication Sig Dispensed Refills Start End [...] DAY 0 Non-seasonal allergic rhinitis, unspecified trigger PREGABALIN 300 mg TAKE 1 CAPSULE BY [...] Cough in adult patient fluticasone Use 1 [place] in 16 g 0 Act marge propionate 50 each nostril 0 mcg/actuation daily. nasal sprayIndications: Cough in adult patient albuterol-ipratrop Inhale 1 Puff 4 4 g 1 Active ium 20-100 (four) times 0 mcg/actuation daily. inhalerIndications : Cough in adult patient rivaroxaban Take 1 tablet by 90 tablet 1 A ctive (XARELTO) 20 mg mouth every 0 tabletIndications: morning. prevention of Indications: anginal pain in prevention of coronary artery anginal chest pain disease, PAF associated with coronary artery disease, PAF glipiZIDE 10 mg TAKE TWO (2) 180 tablet 1 Active tabletIndications: TABLETS BY MOUTH 0 Type 2 diabetes TWICE DAILY BEFORE mellitus with BREAKFAST AND complication DINNER SITagliptin Take 1 tablet by 30 tablet 10 A ctive (JANUVIA) 25 mg mouth daily. 0 tabletIndications: Type 2 diabetes mellitus with complication LISINOPRIL 10 mg TAKE (1) TABLET BY 30 tablet 0 Active tabletIndications: MOUTH DAILY 0 Essential FOLLOW UP WITH hypertension CHRISTOPHER DONIS MD [phone] BACLOFEN 5 mg TAKE 1/2 TABLET BY 15 tablet 3 Active tabletIndications: MOUTH DAILY AT 0 Other chronic pain BEDTIME baclofen 5 mg Take 2.5 mg by 30 tablet 3 02/26/20 D iscontinued TabIndications: mouth at bedtime. 0 20 Other chronic pain LISINOPRIL 10 mg TAKE (1) TABLET BY 30 tablet 0 01/30 Discontinued tabletIndications: MOUTH DAILY 0 20 Essential FOLLOW UP WITH hypertension CHRISTOPHER DONIS MD [phone] documented as of this encounter (statuses as of 02/26/2020) Active Problems Problem Noted Date Tenderness of chest wall 01/21/2020 Contusion of rib on right side, sequela 01/21/2020 Cough in adult patient 01/19/2020 Fall, sequela 01/19/2020 Gastrointestinal hemorrhage with hematemesis 0 Non-seasonal allergic rhinitis due to pollen 0 Non-seasonal allergic rhinitis, unspecified trigger Dyslipidemia 05/12/2019 Coronary artery disease involving [place] coronary brian ry of [place] heart 05/12/2019 without angina pectoris PAD (peripheral [...] Added automatically from request for kinsey sargent [id number] Colonic mass 03/14/2017 Overview: Added automatically from request for kinsey sargent [id number] 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 S/P hysterectomy 10/29/2016 Vulvar lesion 10/29/2016 Type 2 diabetes mellitus with complication 10/11/2016 Diffuse pain 10/11/2016 Near syncope 06/28/2016 UTI (urinary tract infection) 05/24/2016 Generalized abdominal pain 05/24/2016 documented as of this encounter (statuses as of 02/26/2020) Resolved Problems Problem Noted Date Resolved Date Rectal bleeding 11/04/2018 01/21/2020 Overview: Added automatically from request for kinsey sargent [id number] Hematuria 10/29/2016 10/29/2016 documented as of this encounter (statuses as of 02/26/2020) Immunizations Name Administration Dates Next Due Influenza [...] Office Visit Family Medicine Christopher Donis MD [address] [place] [address] 205 [place], [place] [address] 05/12/2020 Office Visit Internal Medicine Demi Henderson MD [address] [place] [address] D r Alex [address] [place], [place] [address] Health Maintenance Due Date [...] the intention of not completing the t [facility] EYE EXAM Discontinued documented as of this encounter Results Not on filedocumented in this encounter Visit Diagnoses Diagnosis Essential hypertension Unspecified essential hypertension PAD (peripheral artery disease) Unspecified disorders of arteries and ar terioles Coronary artery disease involving [place] coronary artery of [place] heart without angina pectoris Other chronic pain Type 2 diabetes mellitus with complicati on documented in this encounter Insurance Payer Benefit Plan / Subscriber ID Effective Dates Phone Addre ss Type Group MEDICARE MEDICARE PART [id number] 2003-Prese [phone] [address] Medicare A & B 2 [id number] [place] [address] [facility] MEDICAID OF [id number] 2018-Presen [phone] [address] Medicaid [place] t 0 [id number] [place] [address] documented as of this encounter Advance Directives Name Relationship Healthcare Agent Communication Relationship Jose Guerrier [facility] Health Care Agent Obdulio Sasmon [facility] Agent (Mobile)
--- OUTSIDE RECORDS SUMMARY | 2020-03-13 19:36 | XMS REPORT | Summary of Care ---
:1945 Author Organization [facility] - [facility] Address [address] [place] [address] Care Team Providers Name Role Phone Katie Henderson MD Primary Care Provider Leah Poon Relations Mgr Sammi Eason Insurance Hmo Reason for Visit Reason Comments Assessment uit Encounter Details Date Type Department Care Team Description 02/23/2020 Telephone [facility] Pediatric Matilde Henderson, Assessment (uit) and Adult Primary Care- MD Tineo [address] [place] [address] [place] [address] [address] [place] [address] [place] [address] [phone] Allergies Active Allergy Reactions Severity Noted Date Comments Morphine Hallucinations 06/28/2016 documented as of this encounter (statuses as of 02/23/2020) Medications Medication Sig Dispensed Refills Start Date [...] Cough in adult patient fluticasone Use 1 [place] in each 16 g 0 01/13/2020 Active propionate 50 nostril daily. mcg/actuation nasal sprayIndications: Cough in adult patient albuterol-ipratropiu Inhale 1 Puff 4 4 g 1 01/13/2020 Active m 20-100 (four) times daily. mcg/actuation inhalerIndications: Cough in adult patient LISINOPRIL 10 mg TAKE (1) TABLET BY 30 tablet 0 01/27/2020 Active tabletIndications: MOUTH DAILY Essential FOLLOW UP WITH hypertension CHRISTOPHER DONIS MD [phone] rivaroxaban Take 1 tablet by 90 tablet [...] as of this encounter (statuses as of 02/23/2020) Active Problems Problem Noted Date Tenderness of chest wall 01/21/2020 Contusion of rib on right side, sequela 01/21/2020 Cough in adult patient 01/19/2020 Fall, sequela 01/19/2020 Gastrointestinal hemorrhage with hematemesis 0 Non-seasonal allergic rhinitis due to pollen 0 Non-seasonal allergic rhinitis, unspecified trigger Dyslipidemia 05/12/2019 Coronary artery disease involving [place] coronary brian ry of [place] heart 05/12/2019 without angina pectoris PAD (peripheral [...] Added automatically from request for kinsey sargent [id number] Colonic mass 03/14/2017 Overview: Added automatically from request for kinsey sargent [id number] 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 S/P hysterectomy 10/29/2016 Vulvar lesion 10/29/2016 Type 2 diabetes mellitus with complication 10/11/2016 Diffuse pain 10/11/2016 Near syncope 06/28/2016 UTI (urinary tract infection) 05/24/2016 Generalized abdominal pain 05/24/2016 documented as of this encounter (statuses as of 02/23/2020) Resolved Problems Problem Noted Date Resolved Date Rectal bleeding 11/04/2018 01/21/2020 Overview: Added automatically from request for kinsey sargent [id number] Hematuria 10/29/2016 10/29/2016 documented as of this encounter (statuses as of 02/23/2020) Immunizations Name Administration Dates Next Due Influenza [...] this encounter Miscellaneous Notes Telephone Encounter - Haleigh White - 02/23/2020 4:11 PM CSTPer home health rep believes patient has a uti. Trying to collect urine sample and if able to get one, will send to the lab on Friday. documented in this encounter Plan of Treatment Date Type Specialty Care Team Description 04/27/2020 Office Visit Family Medicine Christopher Donis MD [address] [place] [address] Dr Mccarthy [place], [place] [address] [phone] 05/12/2020 Office Visit Internal Medicine Demi Henderson MD 146 [facility] 103 [place], [place] [address] [phone] Health Maintenance Due Date Last Done Comments [...] Addre ss Type Group MEDICARE MEDICARE PART [id number] 2003-Presbreanna [phone] [address] Medicare A & B nt 2 [id number] RADHA RAMOS [id number] [facility] MEDICAID OF [id number] 2018-Becky [phone] [address] Medicaid [place] t 0 [id number] [place] [address] documented as of this encounter Advance Directives Name Relationship Healthcare Agent Communication Relationship Jose Guerrier [facility] Health Care Agent [email or web address] Obdulio Samson [facility] [place] Agent (Mobile)
--- OUTSIDE RECORDS SUMMARY | 2020-03-13 19:36 | XMS REPORT | Summary of Care ---
:1945 Author Organization [facility] - [facility] Address [address] [place] [address] Care Team Providers Name Role Phone Katie Henderson MD Primary Care Provider Leah Poon Single Fold Machine Operator Sammi Eason Insurance Hmo Reason for Visit Reason Comments Notification Encounter Details Date Type Department Care Team Description 02/26/2020 Telephone [facility] Pediatric and Anne Henderson, Notification Adult Primary Care- MD Tineo [address] [place] [address] [address] [place] [address] [place] [address] [phone] Allergies Active Allergy Reactions Severity Noted Date Comments Morphine Hallucinations 06/28/2016 documented as of this encounter (statuses as of 02/26/2020) Medications Medication Sig Dispensed Refills Start Date [...] EVERY DAY Non-seasonal allergic rhinitis, unspecified trigger PREGABALIN 300 [...] Cough in adult patient fluticasone Use 1 [place] in each 16 g 0 01/13/2020 Active [...] TAKE (1) TABLET BY 30 tablet 0 02/26/2020 Active tabletIndications: MOUTH DAILY Essential FOLLOW UP WITH hypertension CHRISTOPHER DONIS MD [phone] BACLOFEN 5 mg TAKE 1/2 TABLET BY 15 tablet 3 02/26/2020 Active tabletIndications: MOUTH DAILY AT Other chronic pain BEDTIME documented as of this encounter (statuses as of 02/26/2020) Active Problems Problem Noted Date Tenderness of chest wall 01/21/2020 Contusion of rib on right side, sequela 01/21/2020 Cough in adult patient 01/19/2020 Fall, sequela 01/19/2020 Gastrointestinal hemorrhage with hematemesis 0 Non-seasonal allergic rhinitis due to pollen 0 Non-seasonal allergic rhinitis, unspecified trigger Dyslipidemia 05/12/2019 Coronary artery disease involving enterprise coronary brian ry of enterprise heart 05/12/2019 without angina pectoris PAD (peripheral [...] Added automatically from request for kinsey schofieldy [id number] Colonic mass 03/14/2017 Overview: Added automatically from request for kinsey arie [id number] Vulvar intraepithelial neoplasia (CHASE) grade 3 017 [...] Added automatically from request for kinsey arie [id number] Hematuria 10/29/2016 10/29/2016 documented as of this [...] this encounter Miscellaneous Notes Telephone Encounter - Lavonne Guillory - 02/26/2020 11:55 AM CSTReview elephone Encounter - Terese Morales - 02/26/2020 8:47 AM CSTEmkeyana Candido Guerrier is a 74 year old female Lacie with [facility] calling stating patient was unable to provide urine sample on 02/23. She states she has urine sample now and will be dropping it at the lab. 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 Medicare A & B nt 2 [id number] RADHA RAMOS [id number] [facility] MEDICAID OF [id number] 2018-Becky [phone] [address] Medicaid [facility] 0 [id number] [place] [address] documented as of this encounter Advance Directives Name Relationship Healthcare Agent Communication Relationship Jose Guerrier [place] Care Agent [email or web address] Obdulio Samson [facility] [phone] Agent (Mobile)
--- OUTSIDE RECORDS SUMMARY | 2020-03-13 19:37 | XMS REPORT | Summary of Care ---
:1945 Author Organization [facility] - [facility] Address [address] [place] [address] Care Team Providers Name Role Phone Katie Henderson MD Primary Care Provider Leah Poon Stretch Machine Operator Sammi Eason Insurance Hmo Encounter Details Date Type Department Care Team Description 01/26/2020 Orders Only [facility] Doctor Unassigned, No 301 [facility] [place] [address] [place] [address] Allergies Active Allergy Reactions Severity Noted Date Comments Morphine Hallucinations 06/28/2016 documented as of this encounter (statuses as of 03/06/2020) Medications Medication Sig Dispensed Refills Start Date [...] needed for Pain. Cough in adult patient albuterol-ipratropiu Inhale 1 [...] as of this encounter (statuses as of 03/06/2020) Active Problems Problem Noted Date Tenderness of chest wall 01/21/2020 Contusion of rib on right side, sequela 01/21/2020 Cough in adult patient 01/19/2020 Fall, sequela 01/19/2020 Gastrointestinal hemorrhage with hematemesis 0 Non-seasonal allergic rhinitis due to pollen 0 Non-seasonal allergic rhinitis, unspecified trigger Dyslipidemia 05/12/2019 Coronary artery disease involving [place] coronary brian ry of [place] heart 05/12/2019 without angina pectoris PAD (peripheral [...] Added automatically from request for kinsey arie [id number] Colonic mass 03/14/2017 Overview: Added automatically from request for kinsey arie [id number] 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 S/P hysterectomy 10/29/2016 Vulvar lesion 10/29/2016 Type 2 diabetes mellitus with complication 10/11/2016 Diffuse pain 10/11/2016 Near syncope 06/28/2016 UTI (urinary tract infection) 05/24/2016 Generalized abdominal pain 05/24/2016 documented as of this encounter (statuses as of 03/06/2020) Resolved Problems Problem Noted Date Resolved Date Rectal bleeding 11/04/2018 01/21/2020 Overview: Added automatically from request for kinsey sargent [id number] Hematuria 10/29/2016 10/29/2016 documented as of this encounter (statuses as of 03/06/2020) Immunizations Name Administration Dates Next Due Influenza [...] Office Visit Family Medicine Kevon Donis MD [address] [place] [address] 77 15 05/12/2020 Office Visit Internal Medicine Demi Henderson MD [address] [place] [address] 778 15 [phone] Health Maintenance Due Date Last Done Comments [...] Procedure Name Priority Date/Time Associated Diagnosis Comme [facility]ALTH 485 Routine 01/26/2020 12:01 AM CDT documented in this encounter Results Not on filedocumented in this encounter Insurance Payer Benefit Plan / Subscriber ID Effective Dates Phone Addre ss Type Group MEDICARE MEDICARE PART [id number] 2003-Prese [phone] [address] Medicare A & B 2 [id number] [place] [address] [facility] MEDICAID OF [id number] 2018-Presen [phone] [address] Medicaid [place] t 0 [id number] [place] [address] documented as of this encounter Advance Directives Name Relationship Healthcare Agent Communication Relationship Jose Guerrier Child Health Care Agent Obdulio Samson [facility] [phone] Agent (Mobile)
--- OUTSIDE RECORDS SUMMARY | 2020-03-13 19:37 | XMS REPORT | Summary of Care ---
:1945 Author Organization [facility] - [facility] Address [address] [place] [address] Care Team Providers Name Role Phone Katie Henderson MD Primary Care Provider Leah Poon Meter Supervisor Sammi Eason Insurance Hmo Reason for Visit Reason Comments Results Encounter Details Date Type Department Care Team Description 03/01/2020 Telephone [facility] Pediatric and Anne Henderson, Results Adult Primary Care- MD Tineo [address] [place] [address] [address] [place] [address] [place] [address] [phone] Allergies Active Allergy Reactions Severity Noted Date Comments Morphine Hallucinations 06/28/2016 documented as of this encounter (statuses as of 03/02/2020) Medications Medication Sig Dispensed Refills Start Date [...] Cough in adult patient fluticasone Use 1 [place] in each 16 g 0 01/13/2020 Active [...] FOLLOW UP WITH hypertension CHRISTOPHER DONIS MD [phone] BACLOFEN 5 mg TAKE 1/2 TABLET BY 15 tablet 3 02/26/2020 Active tabletIndications: MOUTH DAILY AT Other chronic pain BEDTIME documented as of this encounter (statuses as of 03/02/2020) Active Problems Problem Noted Date Tenderness of chest wall 01/21/2020 Contusion of rib on right side, sequela 01/21/2020 Cough in adult patient 01/19/2020 Fall, sequela 01/19/2020 Gastrointestinal hemorrhage with hematemesis 0 Non-seasonal allergic rhinitis due to pollen 0 Non-seasonal allergic rhinitis, unspecified trigger Dyslipidemia 05/12/2019 Coronary artery disease involving [place] coronary brian ry of [place] heart 05/12/2019 without angina pectoris PAD (peripheral [...] Added automatically from request for kinsey sargent [id number] Colonic mass 03/14/2017 Overview: Added automatically from request for kinsey arie [id number] 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 S/P hysterectomy 10/29/2016 Vulvar lesion 10/29/2016 Type 2 diabetes mellitus with complication 10/11/2016 Diffuse pain 10/11/2016 Near syncope 06/28/2016 UTI (urinary tract infection) 05/24/2016 Generalized abdominal pain 05/24/2016 documented as of this encounter (statuses as of 03/02/2020) Resolved Problems Problem Noted Date Resolved Date Rectal bleeding 11/04/2018 01/21/2020 Overview: Added automatically from request for kinsey schofieldy [id number] Hematuria 10/29/2016 10/29/2016 documented as of this encounter (statuses as of 03/02/2020) Immunizations Name Administration Dates Next Due Influenza [...] Notes Telephone Encounter - Marianne Arnett - 03/01/2020 3:24 PM CSTReceived fax from [facility] documented in this encounter Plan of Treatment Date Type Specialty Care Team Description 04/27/2020 Office Visit Family Medicine Christopher Donis MD [address] [place] [address] Dr [place], [place] [address] [phone] 05/12/2020 Office Visit Internal Medicine Demi Henderson MD [address] [facility] [address] [place] [address] [phone] Health Maintenance Due Date Last Done Comments [...] Addre ss Type Group MEDICARE MEDICARE PART [id number] 2003-Presbreanna [phone] [address] Medicare A & B nt 2 [id number] RADHA RAMOS [id number] [facility] MEDICAID OF [id number] 2018-Becky [phone] [address] Medicaid [place] t 0 [id number] [place] [address] documented as of this encounter Advance Directives Name Relationship Healthcare Agent Communication Relationship Jose Guerrier Child Health Care Agent [email or web address] Obdulio Samson [facility] [phone] Agent (Mobile)
--- OUTSIDE RECORDS SUMMARY | 2020-03-13 19:37 | XMS REPORT | Summary of Care ---
:1945 Author Organization [facility] Address [address] [place] [address] Care Team Providers Name Role Phone Katie Henderson MD Primary Care Provider Leah Poon Quoter Sammi Eason Insurance Hmo Reason for Visit Reason Comments Results Culture report Encounter Details Date Type Department Care Team Description 03/02/2020 Telephone [facility] Pediatric Matilde Henderson Results (Culture and Adult Primary A, report) [facility] [address] [place] [address], [address] [place] [address] [place] [phone] [address] [phone] Allergies Active Allergy Reactions Severity Noted Date [...] Cough in adult patient fluticasone Use 1 [place] in each 16 g 0 01/13/2020 Active [...] FOLLOW UP WITH hypertension CHRISTOPHER DONIS MD [phone] BACLOFEN 5 mg TAKE 1/2 TABLET BY [...] trigger Dyslipidemia 05/12/2019 Coronary artery disease involving [place] coronary brian ry of [place] heart 05/12/2019 without angina pectoris PAD (peripheral [...] Added automatically from request for kinsey sargent [id number] Colonic mass 03/14/2017 Overview: Added automatically from request for kinsey schofieldy [id number] Vulvar intraepithelial neoplasia (CHASE) grade 3 017 [...] Added automatically from request for kinsey sargent [id number] Hematuria 10/29/2016 10/29/2016 documented as of this [...] Notes Telephone Encounter - Marianne Arnett - 03/02/2020 2:38 PM CSTReceived fax from [facility] they sent final culture report. Placed report in Dr. Henderson's box documented in this encounter Plan of Treatment Date Type Specialty Care Team Description 04/27/2020 Office Visit Family Medicine Christopher Donis MD [address] [place] [address] Dr Mccarthy [place] [address] [phone] 05/12/2020 Office Visit Internal Medicine Demi Henderson MD 146 [facility] 103 [place], [place] [address] [phone] Health Maintenance Due Date Last Done Comments [...] Addre ss Type Group MEDICARE MEDICARE PART [id number] 2003-Prese [phone] [address] Medicare A & B nt 2 [id number] RADHA RAMOS [id number] [facility] MEDICAID OF [id number] 2018-Presdipika [phone] [address] Medicaid [facility] [id number] [place] [address] documented as of this encounter Advance Directives Name Relationship Healthcare Agent Communication Relationship Jose Guerrier [facility] Health Care Agent [email or web address] Obdulio Samson [facility] Agent (Mobile)
--- OUTSIDE RECORDS SUMMARY | 2020-03-13 19:38 | XMS REPORT | Summary of Care ---
:1945 Author Organization [facility] Address [address] [place] [address] Care Team Providers Name Role Phone Katie Henderson MD Primary Care Provider Leah Poon Active Directory Specialist Sammi Eason Insurance Hmo Reason for Visit Reason Comments DME Incontinence supply Encounter Details Date Type Department Care Team Description 03/09/2020 Telephone [facility] Pediatric Matilde Henderson DME (Incontinence and Adult Primary A, MD supply) [facility] [address], [address] [place] [address] [place], [place] [phone] [address] [phone] Allergies Active Allergy Reactions Severity Noted Date Comments Morphine Hallucinations 06/28/2016 documented as of this encounter (statuses as of 03/09/2020) Medications Medication Sig Dispensed Refills Start Date [...] tablet 0 01/13/2020 Active (TYLENOL 8 HOUR) mouth every 8 650 mg CR (eight) hours as tabletIndications: needed for Pain. Cough in adult patient albuterol-ipratropi Inhale 1 Puff 4 4 g 1 01/13/2020 Active um 20-100 (four) times daily. mcg/actuation inhalerIndications: Cough [...] FOLLOW UP WITH hypertension CHRISTOPHER DONIS MD [phone] BACLOFEN 5 mg TAKE 1/2 TABLET BY 15 tablet 3 02/26/2020 Active tabletIndications: MOUTH DAILY AT Other chronic pain BEDTIME FLUTICASONE SPRAY 1 SPRAY INTO 16 g 1 03/06/2020 Active PROPIONATE 50 EACH NOSTRIL EVERY mcg/actuation nasal DAY sprayIndications: Cough in adult patient Nitrofurantoin&Nit. Take 1 capsule by 14 capsule 0 03/08/2020 03/15/2020 Active Macrocryst mouth 2 (two) times (MACROBID) 100 mg daily for 7 days. capsuleIndications: UTI symptoms documented as of this encounter (statuses as of 03/09/2020) Active Problems Problem Noted Date Tenderness of chest wall 01/21/2020 Contusion of rib on right side, sequela 01/21/2020 Cough in adult patient 01/19/2020 Fall, sequela 01/19/2020 Gastrointestinal hemorrhage with hematemesis 0 Non-seasonal allergic rhinitis due to pollen 0 Non-seasonal allergic rhinitis, unspecified trigger Dyslipidemia 05/12/2019 Coronary artery disease involving [place] coronary brian ry of [place] heart 05/12/2019 without angina pectoris PAD (peripheral [...] Added automatically from request for kinsey sargent [id number] Colonic mass 03/14/2017 Overview: Added automatically from request for kinsey sargent [id number] 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 S/P hysterectomy 10/29/2016 Vulvar lesion 10/29/2016 Type 2 diabetes mellitus with complication 10/11/2016 Diffuse pain 10/11/2016 Near syncope 06/28/2016 UTI (urinary tract infection) 05/24/2016 Generalized abdominal pain 05/24/2016 documented as of this encounter (statuses as of 03/09/2020) Resolved Problems Problem Noted Date Resolved Date Rectal bleeding 11/04/2018 01/21/2020 Overview: Added automatically from request for kinsey sargent [id number] Hematuria 10/29/2016 10/29/2016 documented as of this encounter (statuses as of 03/09/2020) Immunizations Name Administration Dates Next Due Influenza [...] Notes Telephone Encounter - Marianne Arnett - 03/09/2020 3:47 PM CSTReceived fax from [facility] Placed fax in Dr. Henderson's box documented in this encounter Plan of Treatment Date Type Specialty Care Team Description 04/27/2020 Office Visit Family Medicine Christopher Donis MD [address] [place] [address] Dr Johnson [address] [place], [place] [address] 05/12/2020 Office Visit Internal Medicine Demi Henderson MD 146 [facility] D sammi Johnson [address] [place], [place] [address] Health Maintenance Due Date [...] Addre ss Type Group MEDICARE MEDICARE PART [id number] 2003-Presbreanna [phone] [address] Medicare A & B nt 2 [id number] RADHA RAMOS [address] [facility] MEDICAID OF [id number] 2018-Becky [phone] [address] Medicaid [facility] 0 113112 [place] [address] documented as of this encounter Advance Directives Name Relationship Healthcare Agent Communication Relationship Jose Guerrier [facility] Care Agent [email or web address] Obdulio Samson [facility] [phone] Agent (Mobile)
--- OUTSIDE RECORDS SUMMARY | 2020-03-13 19:38 | XMS REPORT | Summary of Care ---
:1945 Author Organization [facility] Address [address] [place] [address] Care Team Providers Name Role Phone Katie Henderson MD Primary Care Provider Leah Poon Final Dressing Cutter Sammi Eason Insurance Hmo Reason for Visit Reason Comments Results Culture report Encounter Details Date Type Department Care Team Description 03/02/2020 Telephone [facility] Pediatric Matilde Henderson Results (Culture and Adult Primary A, report) [facility] [address] [facility] [address] [place] [address], [address] [place] [address] [place], [place] [phone] [address] [phone] Allergies Active Allergy Reactions Severity Noted Date Comments Morphine Hallucinations 06/28/2016 documented as of this encounter (statuses as of 03/06/2020) Medications Medication Sig Dispensed Refills Start End [...] needed for Pain. Cough in adult patient albuterol-ipratrop Inhale 1 [...] FOLLOW UP WITH hypertension CHRISTOPHER DONIS MD [phone] BACLOFEN 5 mg TAKE 1/2 TABLET BY 15 tablet 3 Active tabletIndications: MOUTH DAILY AT 0 Other chronic pain BEDTIME fluticasone Use 1 [place] in 16 g 0 03/06/20 Dis continued propionate 50 each nostril 0 20 mcg/actuation daily. nasal sprayIndications: Cough in adult patient documented as of this encounter (statuses as of 03/06/2020) Active Problems Problem Noted Date Tenderness of chest wall 01/21/2020 Contusion of rib on right side, sequela 01/21/2020 Cough in adult patient 01/19/2020 Fall, sequela 01/19/2020 Gastrointestinal hemorrhage with hematemesis 0 Non-seasonal allergic rhinitis due to pollen 0 Non-seasonal allergic rhinitis, unspecified trigger Dyslipidemia 05/12/2019 Coronary artery disease involving [place] coronary brian ry of [place] heart 05/12/2019 without angina pectoris PAD (peripheral [...] Added automatically from request for kinsey arie [id number] Colonic mass 03/14/2017 Overview: Added automatically from request for kinsey arie [id number] Vulvar intraepithelial neoplasia (CHASE) grade 3 017 [...] Added automatically from request for kinsey arie [id number] Hematuria 10/29/2016 10/29/2016 documented as of this [...] Telephone Encounter - Darlene Henderson MD - 03/06/2020 11:13 AM CSTCan you please put this on my keyboard? elephone Encounter - Norma Todd MA - 03/02/2020 4:39 PM CSTNotification. elephone Encounter - Marianne Arnett - 03/02/2020 2:38 PM CSTReceived fax from [facility] sent final culture report. Placed report in Dr. Henderson's box documented in this encounter Plan of Treatment Date Type Specialty Care Team Description 04/27/2020 Office Visit Family Medicine Christopher Donis MD [address] [place] [address] 205 [place], [place] [address] 05/12/2020 Office Visit Internal Medicine Demi Henderson MD [address] [place] [address] D r [facility] 103 [place], [place] [address] Health Maintenance Due Date [...] Addre ss Type Group MEDICARE MEDICARE PART [id number] 2003-Prese [phone] [address] Medicare A & B nt 2 [id number] PISMO BEACHRADHA [address] [facility] MEDICAID OF [id number] 2018-Presen [phone] [address] Medicaid [place] t 0 [id number] [place] [address] documented as of this encounter Advance Directives Name Relationship Healthcare Agent Communication Relationship Jose Guerrier [facility] Health Care Agent [email or web address] Obdulio Samson [facility] [phone] Agent (Mobile)
--- OUTSIDE RECORDS SUMMARY | 2020-03-13 19:38 | XMS REPORT | Summary of Care ---
:1945 Author Organization [facility] - [facility] Address [address] [place] [address] Care Team Providers Name Role Phone Katie Henderson MD Primary Care Provider Leah Poon Biological Technician Sammi Eason Insurance Hmo Encounter Details Date Type Department Care Team Description 03/06/2020 Orders Only [facility] Doctor Unassigned, No 301 [facility] [place] [address] [place] [address] Allergies Active Allergy Reactions Severity Noted Date Comments Morphine Hallucinations 06/28/2016 documented as of this encounter (statuses as of 03/08/2020) Medications Medication Sig Dispensed Refills Start Date [...] FOLLOW UP WITH hypertension CHRISTOPHER DONIS MD [phone] BACLOFEN 5 mg TAKE 1/2 TABLET BY [...] as of this encounter (statuses as of 03/08/2020) Active Problems Problem Noted Date Tenderness of chest wall 01/21/2020 Contusion of rib on right side, sequela 01/21/2020 Cough in adult patient 01/19/2020 Fall, sequela 01/19/2020 Gastrointestinal hemorrhage with hematemesis 0 Non-seasonal allergic rhinitis due to pollen 0 Non-seasonal allergic rhinitis, unspecified trigger Dyslipidemia 05/12/2019 Coronary artery disease involving [place] coronary brian ry of [place] heart 05/12/2019 without angina pectoris PAD (peripheral [...] Added automatically from request for kinsey sargent [id number] Colonic mass 03/14/2017 Overview: Added automatically from request for kinsey schofieldy [id number] 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 S/P hysterectomy 10/29/2016 Vulvar lesion 10/29/2016 Type 2 diabetes mellitus with complication 10/11/2016 Diffuse pain 10/11/2016 Near syncope 06/28/2016 UTI (urinary tract infection) 05/24/2016 Generalized abdominal pain 05/24/2016 documented as of this encounter (statuses as of 03/08/2020) Resolved Problems Problem Noted Date Resolved Date Rectal bleeding 11/04/2018 01/21/2020 Overview: Added automatically from request for kinsey sargent [id number] Hematuria 10/29/2016 10/29/2016 documented as of this encounter (statuses as of 03/08/2020) Immunizations Name Administration Dates Next Due Influenza [...] Office Visit Family Medicine Christopher Donis MD [address] [place] [address] Dr [address] [place], [place] [address] 05/12/2020 Office Visit Internal Medicine Demi Henderson MD 146 [facility] Lin Johnson [address] [place], [place] [address] Health Maintenance Due Date [...] Name Priority Date/Time Associated Diagnosis Comme nts AUTHORIZATION FOR RELEASE Routine 03/06/2020 12:01 AM OF PHI SENIOR PATIENT ACCOUNT REPRESENTATIVE documented in this encounter Results Not on filedocumented in this encounter Insurance Payer Benefit Plan / Subscriber ID Effective Dates Phone Addre ss Type Group MEDICARE MEDICARE PART [id number] 2003-Prese [phone] [address] Medicare A & B nt 2 [id number] RADHA RAMOS [id number] [facility] MEDICAID OF [id number] 2018-Presdipika [phone] [address] Medicaid [place] t 0 [id number] [facility] [place] [address] documented as of this encounter Advance Directives Name Relationship Healthcare Agent Communication Relationship Jose Guerrier Child Health Care Agent [email or web address] Obdulio Samson [facility] Agent (Mobile) ([place])
--- OUTSIDE RECORDS SUMMARY | 2020-03-13 19:38 | XMS REPORT | Summary of Care ---
:1945 Author Organization [facility] Address [address] [place] [address] Care Team Providers Name Role Phone Katie Henderson MD Primary Care Provider Leah Poon Take Out Waiter Sammi Eason Insurance Hmo Reason for Visit Reason Comments Results Culture report Encounter Details Date Type Department Care Team Description 03/02/2020 Telephone [facility] Pediatric Matilde Henderson Results (Culture and Adult Primary A, report) [facility] [address] [place] [address], [address] [place] [address] [place], [place] [phone] [address] [phone] Allergies Active Allergy Reactions Severity Noted Date Comments Morphine Hallucinations 06/28/2016 documented as of this encounter (statuses as of 03/08/2020) Medications Medication Sig Dispensed Refills Start End [...] FOLLOW UP WITH hypertension CHRISTOPHER DONIS MD [phone] BACLOFEN 5 mg TAKE 1/2 TABLET BY 15 tablet 3 Active tabletIndications: MOUTH DAILY AT 0 Other chronic pain BEDTIME fluticasone Use 1 [place] in 16 g 0 03/06/20 Dis continued [...] trigger Dyslipidemia 05/12/2019 Coronary artery disease involving [place] coronary brian ry of [place] heart 05/12/2019 without angina pectoris PAD (peripheral [...] Added automatically from request for kinsey arie [id number] Colonic mass 03/14/2017 Overview: Added automatically from request for kinsey arie [id number] Vulvar intraepithelial neoplasia (CHASE) grade 3 017 [...] Added automatically from request for kinsey arie [id number] Hematuria 10/29/2016 10/29/2016 documented as of this [...] - 03/02/2020 2:38 PM CSTReceived fax [facility] final culture report. Placed report in Dr. Henderson's box documented in this encounter Plan of Treatment Date Type Specialty Care Team Description 04/27/2020 Office Visit Family Medicine Christopher Donis MD [address] [place] [address] 205 [place], [place] [address] 05/12/2020 Office Visit Internal Medicine Demi Henderson MD [address] [place] [address] D r [facility] 103 [place], [place] [address] Health Maintenance Due Date [...] Addre ss Type Group MEDICARE MEDICARE PART [id number] 2003-Prese [phone] [address] Medicare A & B nt 2 [id number] SURPRISERADHA [address] [facility] MEDICAID OF [id number] 2018-Presen [phone] [address] Medicaid [place] t 0 [id number] [place] [address] documented as of this encounter Advance Directives Name Relationship Healthcare Agent Communication Relationship Jose Guerrier [facility] Health Care Agent [email or web address] Obdulio Samson [facility] Agent (Mobile)
--- OUTSIDE RECORDS SUMMARY | 2020-03-13 19:38 | XMS REPORT | Summary of Care ---
:1945 Author Organization [facility] Address [address] [place] [address] Care Team Providers Name Role Phone Katie Mckeon MD Primary Care Provider Leah Poon Supervisor Plastics Sammi Eason Insurance Hmo Reason for Visit Reason Comments Results Culture report Encounter Details Date Type Department Care Team Description 03/02/2020 Telephone [facility] Pediatric Matilde Mckeon Results (Culture and Adult Primary A, report) [facility] [place] [address] [place] [address], [address] [place] [address] [place] [phone] [phone] Allergies Active Allergy Reactions Severity Noted Date [...] FOLLOW UP WITH hypertension CHRISTOPHER DONIS MD [phone] BACLOFEN 5 mg TAKE 1/2 TABLET BY 15 tablet 3 Active tabletIndications: MOUTH DAILY AT 0 Other chronic pain BEDTIME Nitrofurantoin&Nit Take 1 capsule by 14 capsule 0 Active . Macrocryst mouth 2 (two) 0 20 (MACROBID) 100 mg times daily for 7 capsuleIndications days. : UTI symptoms fluticasone Use 1 Sylvia in 16 g 0 03/06/20 Dis continued [...] trigger Dyslipidemia 05/12/2019 Coronary artery disease involving [place] coronary brian ry of [place] heart 05/12/2019 without angina pectoris PAD (peripheral [...] Added automatically from request for kinsey sargent [id number] Colonic mass 03/14/2017 Overview: Added automatically from request for kinsey sargent [id number] Vulvar intraepithelial neoplasia (CHASE) grade 3 017 [...] Added automatically from request for kinsey sargent [id number] Hematuria 10/29/2016 10/29/2016 documented as of this [...] on filedocumented in this encounter Miscellaneous Notes Addendum Note - Darlene Mckeon MD - 03/08/2020 9:03 AM [employer] Addended by: DARLENE MCKEON MD on: 03/08/2020 09:03 AM Modules accepted: Orders [employer] Telephone Encounter - Darlene Mckeon MD - 03/08/2020 8:56 AM CSTUrine culture results: Mixed massimo. UA: nitrite and leukocyte esterase positive with 20-40. Call and check on patient. What symptoms is she having? I sent in antibiotic. Please have HH drop off future urine specimens to [facility] labs. She has standing UA and culture orders at [facility]. I put some in just now. [employer] Telephone Encounter - Darlene Mckeon MD - 03/06/2020 11:13 AM CSTCan you please put this on my keyboard? elephone Encounter - Norma Todd MA - 03/02/2020 4:39 PM CSTNotification. elephone Encounter - Marianne Arnett - 03/02/2020 2:38 PM CSTReceived fax from [facility]. Placed report in Dr. Mckeon's box documented in this encounter Plan of Treatment Date Type Specialty Care Team Description 04/27/2020 Office Visit Family Medicine Christopher Donis MD [address] [place] [address] [address] [place], [place] [address] [phone] 05/12/2020 Office Visit Internal Medicine Demi Mckeon MD [address] [place] [address] [address] [place], [place] [address] [phone] Name Type Priority Associated Diagnoses Order S chedule URINALYSIS LAB Routine UTI symptoms 30 Occurrences starting 03/08/2020 until 3 URINE CULTURE LAB Routine UTI symptoms 30 Occurrences starting 03/08/2020 until 3 Health Maintenance Due Date Last Done Comments [...] filedocumented in this encounter Visit Diagnoses Diagnosis UTI symptoms - Primary documented in this encounter Insurance Payer Benefit Plan / Subscriber ID Effective Dates Phone Addre ss Type Group MEDICARE MEDICARE PART [id number] 2003-Prese [phone] [place] 2 [id number] RADHA RAMOS [id number] [facility] MEDICAID OF [id number] 2018-Presen [phone] [address] Medicaid [place] t 0 [id number] [place] [address] documented as of this encounter Advance Directives Name Relationship Healthcare Agent Communication Relationship Jose Guerrier Child Health Care Agent [email or web address] Obdulio Rey [facility] Agent (Mobile)
--- OUTSIDE RECORDS SUMMARY | 2020-03-13 19:39 | XMS REPORT | Summary of Care ---
:1945 Author Organization [facility] Address [address] [place] [address] Care Team Providers Name Role Phone Katie Henderson MD Primary Care Provider Leah Poon Defense Analyst Sammi Eason Insurance Hmo Reason for Visit Reason Comments Forms Encounter Details Date Type Department Care Team Description 03/06/2020 Telephone [facility] Pediatric and Anne Henderson Forms Adult Primary Care- MD Tineo [address] [place] [address] [address] [place] [address] [place] [address] [phone] Allergies Active Allergy Reactions Severity Noted Date [...] FOLLOW UP WITH hypertension CHRISTOPHER DONIS MD [phone] BACLOFEN 5 mg TAKE 1/2 TABLET BY [...] trigger Dyslipidemia 05/12/2019 Coronary artery disease involving [place] coronary brian ry of [place] heart 05/12/2019 without angina pectoris PAD (peripheral [...] Added automatically from request for kinsey sargent [id number] Colonic mass 03/14/2017 Overview: Added automatically from request for kinsey schofieldy [id number] Vulvar intraepithelial neoplasia (CHASE) grade 3 017 [...] Added automatically from request for kinsey sargent [id number] Hematuria 10/29/2016 10/29/2016 documented as of this [...] Notes Telephone Encounter - Vandana Sexton - 03/09/2020 3:54 PM CSTOrders faxed on 03/03/2020 to clinic. Faxes after Friday02/25/2020 will not be sign until. 03/14/2020. [facility] can call back but provider will not sign any forms for home health until 03/14/2020. Vandana Sexton 03/09/2020 3:55 PM elephone Encounter - Ave Bryson - 03/09/2020 7:30 AM CSTPlease address encounter opened greater than 48 hours. elephone Encounter - Ave Bryson - 03/06/2020 12:27 PM CSTMamta from [facility] the [facility] health orders that were originally faxed on 02/22/20. Mamta is stating that the orders are just needing the providers signature and is requesting for the orders to be faxed back to [phone]. documented in this encounter Plan of Treatment Date Type Specialty Care Team Description 04/27/2020 Office Visit Family Medicine Christopher Donis MD [address] [place] [address] 05/12/2020 Office Visit Internal Medicine Demi Henderson MD [address] [place] [address] Health Maintenance Due Date Last Done [...] Addre ss Type Group MEDICARE MEDICARE PART [id number] 2003-Prese [phone] Medicare A & B nt 2 [id number] [place] [address] [facility] MEDICAID OF [id number] 2018-Presdipika [phone] Medicaid [place] t 0 [id number] [place] [address] documented as of this encounter Advance Directives Name Relationship Healthcare Agent Communication Relationship Jose Guerrier [facility] Health Care Agent Obdulio Samson [facility] [phone] Agent (Mobile)
[2020-03-13] MEDS ORDERED: NA CHLORIDE 0.9% 500 ML ONE ×2 (19:52→23:08)
--- NOTE | 2020-03-13 20:27 | RAD REPORT ---
EXAM DESCRIPTION: RAD - Chest Single View - 03/13/2020 8:19 pm CLINICAL HISTORY: COUGH Chest pain. COMPARISON: Chest Single View dated 01/06/2020; Chest Single View dated 01/02/2020; Chest Single View dated 08/25/2019; Chest Single View dated 08/21/2019 FINDINGS: Portable technique limits examination quality. The lungs are mildly emphysematous but grossly clear. The heart is normal in size. No displaced fract ures. IMPRESSION: Mild COPD.
--- NOTE | 2020-03-13 20:37 | RAD REPORT ---
EXAM DESCRIPTION: RAD - Shoulder Left 2 View - 03/13/2020 8:19 pm CLINICAL HISTORY: PAIN COMPARISON: Shoulder Left 2 View dated 04/02/2013 FINDINGS: Diffuse osteopenia is seen. Mild AC joint and glenohumeral joint arthritic changes are pre sent. No acute fracture or dislocation evident.
--- NOTE | 2020-03-13 20:42 | RAD REPORT ---
EXAM DESCRIPTION: RAD - Ankle Left 3 View - 03/13/2020 8:19 pm CLINICAL HISTORY: PAIN COMPARISON: No comparisons FINDINGS: Diffuse osteopenia is seen. Vascular calcifications are present. No acute fracture or disl ocation. Small calcaneal spurs.
--- NOTE | 2020-03-13 20:51 | RAD REPORT ---
EXAM DESCRIPTION: CTAbdomen Pelvis W Contrast - 03/13/2020 8:39 pm CLINICAL HISTORY: Abdominal pain. NAUSEA / VOMITING COMPARISON: Abdomen Pelvis W Contrast dated 08/25/2019; Abdomen Pelvis W Contrast dated 08/31/2017; Abdomen Pelvis W Contrast dated 04/19/2017; Abdomen Pelvis W Contrast dated 10/09/2016 TECHNIQUE: Biphasic CT imaging of the abdomen and pelvis was performed with 100 ml non-ionic IV cont rast. All CT scans are performed using dose optimization technique as appropriate and may include automated exposure control or mA/KV adjustment according to patient size. FINDINGS: The inferior lung andres are emphysematous but clear. Mild fatty liver is noted with cholecystectomy clips seen. The spleen, pancreas adrenal glands kidney s within normal limits. No bowel obstruction, free air, free fluid or abscess. The appendix is normal. No evidence of signi ficant lymphadenopathy. Moderate lumbosacral degenerative changes. IMPRESSION: No acute intra-abdominal or pelvic finding.
[2020-03-13 20:53] LABS: Absolute Lymphocytes (CBC) 1.9 K/uL (0.7-4.9); Basophils % 1.5 % (0-1.3); Hematocrit 33.7 % (36.0-45.0); Lymphocytes % 28.3 % (15.3-44.8); MPV 9.4 fL (7.6-11.3); RBC Red Blood Cell Count 4.16 M/uL (3.86-4.86)
[2020-03-13 21:07] LABS: ALT/SGPT 13 U/L (12-78); AST/SGOT 16 U/L (15-37); Albumin 3.7 g/dL (3.4-5.0); Alkaline Phosphatase 96 U/L (45-117); BUN Blood Urea Nitrogen 16 mg/dL (7-18); Bicarbonate 27 mmol/L (21-32); Bilirubin Direct 0.2 mg/dL (0-0.2); Bilirubin Total 0.8 mg/dL (0.2-1.0); Glucose Level 181 mg/dL (74-106); Lipase 46 U/L (73-393); Potassium 3.5 mmol/L (3.5-5.1); Protein, Total 7.8 g/dL (6.4-8.2); Protime INR 1.01; Sodium Level 142 mmol/L (136-145); Troponin (Emerg Dept Use Only) < 0.02 ng/mL (0.0-0.045)
[2020-03-13] MEDS ORDERED: ONDANSETRON 4 MG/2 ML VIAL ONE (21:17)
--- NOTE | 2020-03-13 21:22 | RAD REPORT ---
EXAM DESCRIPTION: RAD - Hip Left 2 View - 03/13/2020 9:16 pm CLINICAL HISTORY: PAIN COMPARISON: No comparisons FINDINGS: Mild osteoarthritic changes of for the left hip. No fracture, dislocation or AVN. Vascular calcification is evident.
[2020-03-13] MEDS ORDERED: PROMETHAZINE INJ 25 MG/ML AMP ONE (21:59)
[2020-03-13 23:03] LABS: Urine Bacteria <20 /HPF (<20); Urine Mucus 3+ /HPF (NONE SEEN); Urine RBC <5 /HPF (NONE SEEN); Urine Urothelial Cells <5 /HPF (NONE SEEN)
[2020-03-13 23:04] LABS: Urine Blood TRACE (NEG); Urine Glucose TRACE (NEG); Urine Protein 2+ (NEG); Urine pH 5.5 (5.0-7.0)
--- NOTE | 2020-03-13 23:25 | ER ---
Nurse's Notes [facility] Name: Leydi Guerrier Age: 74 yrs Sex: Female : 1945 Arrival Date: 03/13/2020 Time: 19:28 Bed 5 Private MD: Diagnosis: Weakness;Dehydration;Vomiting, unspecified Presentation: 03/13 19:34 Chief complaint: EMS states: Pt not feeling well, C/O generalized weakness and wh soreness, cough, left shoulder pain and left ankle pain, NVS but denies fever. Coronavirus screen: Client denies travel out of the [place] in the last 14 days. cough unrelated to allergies, fatigue, nausea. Ebola Screen: Patient negative for fever greater than or equal to 101.5 degrees Fahrenheit, and additional compatible Ebola Virus Disease symptoms Patient denies exposure to infectious person. Initial Sepsis Screen: Does the patient meet any 2 criteria? No. Patient's initial sepsis screen is negative. Does the patient have a suspected source of infection? Yes: Productive cough/pneumonia. Risk Assessment: Do you want to hurt yourself or someone else? Patient reports no desire to harm self or others. Onset of symptoms was March 13, 2020. 19:34 Method Of Arrival: EMS: [facility] 19:34 Acuity: ADY 3 Historical: - Allergies: 19:38 Morphine; - PMHx: 19:38 Hypertension; Diabetes - NIDDM; - Immunization history:: Adult Immunizations unknown. - Social history:: Smoking status: Patient/guardian denies using. - Family history:: not pertinent. - Hospitalizations: : No recent hospitalization is reported. Screenin:38 Abuse screen: Denies threats or abuse. Denies injuries from another. Nutritional screening: No deficits noted. Tuberculosis screening: No symptoms or risk factors identified. Fall Risk Secondary diagnosis (15 points) legally blind. Assessment: 19:34 General: Appears in no apparent distress. uncomfortable, Behavior is calm, cooperative, jb4 appropriate for age. Pain: Complains of pain in Left shoulder, Left ankle Pain does not radiate. Pain currently is 6 out of 10 on a pain scale. Neuro: Level of Consciousness is awake, alert, obeys commands, Oriented to person, place, time, situation. Cardiovascular: Patient's skin is warm and dry. Respiratory: Reports cough that is Airway is patent Respiratory effort is even, unlabored, Respiratory pattern is regular, symmetrical. GI: Reports diarrhea, nausea, vomiting. : No signs and/or symptoms were reported regarding the genitourinary system. EENT: No signs and/or symptoms were reported regarding the EENT system. Derm: Skin is intact, Skin is pink, warm \T\ dry. Musculoskeletal: Circulation, motion, and sensation intact. Range of motion: intact in all extremities. 20:30 Reassessment: Patient appears in no apparent distress at this time. Patient and/or jb4 family updated on plan of care and expected duration. Pain level reassessed. Patient is alert, oriented x 3, equal unlabored respirations, skin warm/dry/pink. 21:30 Reassessment: Patient appears in no apparent distress at this time. Patient and/or jb4 family updated on plan of care and expected duration. Pain level reassessed. Patient is alert, oriented x 3, equal unlabored respirations, skin warm/dry/pink. 22:45 Reassessment: Patient appears in no apparent distress at this time. Patient and/or jb4 family updated on plan of care and expected duration. Pain level reassessed. Patient is alert, oriented x 3, equal unlabored respirations, skin warm/dry/pink. 23:35 Reassessment: ( Elli) son contacted and he is coming to pick her up. [id number]. mg2 23:42 Reassessment: Patient appears in no apparent distress at this time. Patient and/or jb4 family updated on plan of care and expected duration. Pain level reassessed. Patient is alert, oriented x 3, equal unlabored respirations, skin warm/dry/pink. D/c pending ride home. Vital Signs: 19:34 BP 188 / 72; Pulse 82; Resp 18; Temp 98.1; Pulse Ox 100% on R/A; Weight 69.85 kg; wh Height 5 ft. 2 in. (157.48 cm); 20:00 BP 188 / 79; Pulse 78; Resp 16; Pulse Ox 100% on R/A; jb4 21:15 BP 171 / 73; Pulse 80; Resp 14; Pulse Ox 100% on R/A; jb4 22:30 BP 152 / 86; Pulse 89; Resp 16; Pulse Ox 100% on R/A; jb4 23:30 BP 161 / 83; Pulse 77; Resp 14; Pulse Ox 100% on R/A; mg2 03/14 00:28 BP 155 / 85; Pulse 80; Resp 18; Temp 98; Pulse Ox 100% on R/A; mg2 03/13 19:34 Body Mass Index 28.17 (69.85 kg, 157.48 cm) ED Course: 03/13 19:28 Patient arrived in ED. cl3 19:30 Kalyan Munoz MD is Attending Physician. rn 19:34 Heena Taylor is Primary Nurse. 19:37 Triage completed. 19:38 Patient has correct armband on for positive identification. Bed in low position. Call light in reach. Side rails up X 1. horticultural nursery assistant on. Pulse ox on. NIBP on. 19:39 Arm band placed on right wrist. wh 20:19 XRAY Shoulder LEFT 2 view In Process Unspecified. EDMS 20:19 XRAY Ankle LEFT 3 view In Process Unspecified. EDMS 20:19 CXR XRAY In Process Unspecified. EDMS 20:25 Initial lab(s) drawn, by fl, sent to lab. Inserted saline lock: 18 gauge in left jb4 antecubital area, using aseptic technique. Blood collected. 20:39 CT Abd/Pelvis - IV Contrast Only In Process Unspecified. EDMS 21:16 XRAY Hip LEFT 2 view In Process Unspecified. EDMS 21:45 Josse Cabrera, AIDEN is Primary Nurse. jb4 22:20 Straight cath inserted, using sterile technique, 16 Fr. Returned florentino urine. Patient jb4 tolerated poorly. 03/14 00:28 No provider procedures requiring assistance completed. IV discontinued, intact, mg2 bleeding controlled, No redness/swelling at site. Pressure dressing applied. Administered Medications: 03/13 20:50 Drug: NS 0.9% 500 ml Route: IV; Rate: bolus; Site: left antecubital; jb4 21:23 Follow up: Response: No adverse reaction; IV Status: Completed infusion; IV Intake: jb4 500ml 21:22 Drug: Zofran (Ondansetron) 4 mg Route: IVP; Site: left antecubital; jb4 21:45 Follow up: Response: No adverse reaction; Nausea is decreased jb4 21:50 Drug: Phenergan 12.5 mg Route: IVP; Site: left antecubital; jb4 22:20 Follow up: Response: No adverse reaction; Nausea is decreased jb4 23:00 Drug: NS 0.9% 500 ml Route: IV; Rate: bolus; Site: left antecubital; jb4 23:54 Follow up: Response: No adverse reaction; IV Status: Completed infusion; IV Intake: mg2 500ml Intake: 21:23 IV: 500ml; Total: 500ml. jb4 23:54 IV: 500ml; Total: 1000ml. mg2 Outcome: 23:25 Discharge ordered by . rn 03/14 00:29 Discharged to home via wheelchair, with family. mg2 Condition: stable Discharge instructions given to patient, family, Instructed on discharge instructions, follow up and referral plans. medication usage, Demonstrated understanding of instructions, follow-up care, medications, Prescriptions given X 1. 00:29 Patient left the ED. mg2 Signatures: Dispatcher [employer] EDMS Kalyan Munoz MD MD rn Bryson, James, RN RN [email or web address] Heena Taylor Michele, RN RN mg2 Vinay Chew cl3 Corrections: (The following items were deleted from the chart) 03/13 21:23 21:23 IV Status: Completed infusion; IV Intake: 500ml 4 jb 23:54 23:54 IV Status: Completed infusion; IV Intake: 500ml mg2 mg2
--- NOTE | 2020-03-13 23:25 | EDPHYS ---
Physician Documentation [facility] Name: Leydi Guerrier Age: 74 yrs Sex: Female : 1945 Arrival Date: 03/13/2020 Time: 19:28 Bed 5 Private MD: ED Physician Kalyan Munoz HPI: 03/13 19:39 This 74 yrs old Female presents to ER via EMS with complaints of General rn Weakness. 19:39 Reports generalized weakness for 2 days, assoc with non-productive cough, rn nausea/vomiting, muscle aches. Reports fell today because of weakness, hit left hip and left shoulder. No syncope.. Onset: The symptoms/episode began/occurred 2 day(s) ago. Severity of symptoms: At their worst the symptoms were moderate in the emergency department the symptoms are unchanged. The patient has not experienced similar symptoms in the past. The patient has not recently seen a physician. Historical: - Allergies: 19:38 Morphine; wh - PMHx: 19:38 Hypertension; Diabetes - NIDDM; wh - Immunization history:: Adult Immunizations unknown. - Social history:: Smoking status: Patient/guardian denies using. - Family history:: not pertinent. - Hospitalizations: : No recent hospitalization is reported. 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 Exam: 19:39 Constitutional: This is a well developed, well nourished patient who is awake, alert, rn and in no acute distress. Head/Face: Normocephalic, atraumatic. ENT: MMM Cardiovascular: Regular rate and rhythm. No pulse deficits. Respiratory: No increased work of breathing, no retractions or nasal flaring. Abdomen/GI: soft, non-focal, mild tenderness all 4 quadrants Skin: Warm, dry MS/ Extremity: Pulses equal, no cyanosis. + mild tenderness left distal clavicle and left shoulder, no deformity, + mild tenderness left hip without painful ROM. Neuro: Awake and alert, GCS 15, oriented to person, place, time, and situation. Cranial nerves II-XII grossly intact. Motor strength 4/5 in all extremities. Sensory grossly intact. Vital Signs: 19:34 BP 188 / 72; Pulse 82; Resp 18; Temp 98.1; Pulse Ox 100% on R/A; Weight 69.85 kg; wh Height 5 ft. 2 in. (157.48 cm); 20:00 BP 188 / 79; Pulse 78; Resp 16; Pulse Ox 100% on R/A; jb4 21:15 BP 171 / 73; Pulse 80; Resp 14; Pulse Ox 100% on R/A; jb4 22:30 BP 152 / 86; Pulse 89; Resp 16; Pulse Ox 100% on R/A; jb4 23:30 BP 161 / 83; Pulse 77; Resp 14; Pulse Ox 100% on R/A; mg2 03/14 00:28 BP 155 / 85; Pulse 80; Resp 18; Temp 98; Pulse Ox 100% on R/A; mg2 03/13 19:34 Body Mass Index 28.17 (69.85 kg, 157.48 cm) wh MDM: 03/13 19:30 Patient medically screened. rn 23:21 Differential Diagnosis flu, COVID, viral syndrome, dehydration, UTI. Data reviewed: rn vital signs, nurses notes, lab test result(s), radiologic studies, CT scan, plain films, and as a result, I will discharge patient. Counseling: I had a detailed discussion with the patient and/or guardian regarding: the historical points, exam findings, and any diagnostic results supporting the discharge/admit diagnosis, lab results, radiology results, the need for outpatient follow up, to return to the emergency department if symptoms worsen or persist or if there are any questions or concerns that arise at home. Response to treatment: the patient's symptoms have markedly improved after treatment, and as a result, I will discharge patient. Special discussion: I discussed with the patient/guardian in detail that at this point there is no indication for admission to the hospital. It is understood, however, that if the symptoms persist or worsen the patient needs to return immediately for re-evaluation. ED course: Pt improved, nausea under control, stable vitals, neg CXR/plain films of shoulder and hip, neg ct abdomen, neg UA, neg FLu. Will dc home with prn nausea medication. YAMEL chung Has home health care through the day and night, and grandson stays with her. . 03/13 19:32 Order name: Blood Culture Adult (2) rn 03/13 19:32 Order name: BMP; Complete Time: 21:30 rn 14 19:32 Order name: CBC with Diff; Complete Time: 21:06 rn 03/13 19:32 Order name: Flu; Complete Time: 23:03 rn 03/13 19:32 Order name: Lactate; Complete Time: 21:30 rn 03/13 19:32 Order name: LFT's; Complete Time: 21:30 rn 03/13 19:32 Order name: Lipase; Complete Time: 21:30 rn 03/13 19:32 Order name: Procalcitonin; Complete Time: 21:47 rn 03/13 19:32 Order name: PT-INR; Complete Time: 21:30 rn 14 19:32 Order name: Ptt, Activated; Complete Time: 21:30 rn 14 19:32 Order name: Strep; Complete Time: 23:03 rn 03/13 19:32 Order name: Troponin (emerg Dept Use Only); Complete Time: 21:30 rn 14 19:32 Order name: XRAY Shoulder LEFT 2 view; Complete Time: 21:06 rn 14 19:32 Order name: XRAY Ankle LEFT 3 view; Complete Time: 21:06 rn 14 19:32 Order name: Urine Microscopic Only; Complete Time: 23:21 rn 14 19:32 Order name: CXR XRAY; Complete Time: 21:06 rn 14 19:32 Order name: EKG; Complete Time: 19:33 rn 14 19:32 Order name: Cardiac monitoring; Complete Time: 20:31 rn 14 19:32 Order name: Droplet/Contact Precautions; Complete Time: 19:37 rn 14 19:33 Order name: Ferritin; Complete Time: 21:30 EDAZ 03/13 19:34 Order name: CT Abd/Pelvis - IV Contrast Only; Complete Time: 21:06 rn 14 20:36 Order name: XRAY Hip LEFT 2 view; Complete Time: 21:30 rn 14 22:19 Order name: Throat Culture EDMS 12/14 22:28 Order name: Urine Dipstick--Ancillary (enter results); Complete Time: 23:21 mw2 03/13 19:32 Order name: EKG - Nurse/Tech; Complete Time: 20:31 rn 03/13 19:32 Order name: IV Start; Complete Time: 20:31 rn 03/13 19:32 Order name: Labs collected and sent; Complete Time: 20:31 rn 03/13 19:32 Order name: O2 Per Protocol; Complete Time: 19:37 rn 03/13 19:32 Order name: O2 Sat Monitoring; Complete Time: 19:37 rn 03/13 19:32 Order name: Urine Dipstick-Ancillary (obtain specimen); Complete Time: 23:01 rn 03/13 22:02 Order name: Straight Cath; Complete Time: 22:20 jb4 Administered Medications: 20:50 Drug: NS 0.9% 500 ml Route: IV; Rate: bolus; Site: left antecubital; jb4 21:23 Follow up: Response: No adverse reaction; IV Status: Completed infusion; IV Intake: jb4 500ml 21:22 Drug: Zofran (Ondansetron) 4 mg Route: IVP; Site: left antecubital; jb4 21:45 Follow up: Response: No adverse reaction; Nausea is decreased jb4 21:50 Drug: Phenergan 12.5 mg Route: IVP; Site: left antecubital; jb4 22:20 Follow up: Response: No adverse reaction; Nausea is decreased jb4 23:00 Drug: NS 0.9% 500 ml Route: IV; Rate: bolus; Site: left antecubital; jb4 23:54 Follow up: Response: No adverse reaction; IV Status: Completed infusion; IV Intake: mg2 500ml Disposition: 03/13/20 23:25 Discharged to Home. Impression: Weakness, Dehydration, Vomiting, unspecified. - Condition is Stable. - Discharge Instructions: Dehydration, Adult, Nausea and Vomiting, Adult, Weakness. - Prescriptions for Zofran ODT 4 mg Oral tablet,disintegrating - place 1 tablet by TRANSLINGUAL route every 8 hours As needed; 20 tablet. - Medication Reconciliation Form, Thank You Letter, Antibiotic Education, Prescription Opioid Use form. - Follow up: Private Physician; When: As needed; Reason: Recheck today's complaints, Re-evaluation by your physician. - Problem is new. - Symptoms have improved. Signatures: Dispatcher [employer] [facility] Kalyan Munoz MD MD rn Cooper Jamil PA PA [id number] Josse Cabrera RN RN jb4 Heena Taylor Michele, RN RN mg2 Corrections: (The following items were deleted from the chart) 19:34 19:33 FERRITIN+C.LAB.BRZ ordered. [facility] 03/14 00:29 03/13 23:25 03/13/2020 23:25 Discharged to Home. Impression: Weakness; Dehydration; mg2 Vomiting, unspecified. Condition is Stable. Forms are Medication Reconciliation Form, Thank You Letter, Antibiotic Education, Prescription Opioid Use. Follow up: Private Physician; When: As needed; Reason: Recheck today's complaints, Re-evaluation by your physician. Problem is new. Symptoms have improved. rn
--- NOTE | 2020-03-14 19:33 | EKG ---
Test Date: 2020-03-13 Test Time: 20:10:00 Bench Loom Weaver: AG MEASUREMENT RESULTS: Intervals: Rate: 78 HI: 160 QRSD: 144 QT: 430 QTc: 490 [place]: P: 53 HI: 160 QRS: -62 T: 24 INTERPRETIVE STATEMENTS: Normal sinus rhythm Right bundle branch block Left anterior fascicular block Bifascicular block Abnormal ECG Compared to ECG 01/06/2020 22:57:22 No significant changes Electronically Signed On 03-14-20 19:32:24 QUALITY MANAGER by Alexis Sam
[2020-03-16 14:34] VITALS: O2SAT 100
[2020-03-16 14:40] VITALS: BP 155/85; TEMP 98
== END 2020-03-14 00:29 | disposition home or self-care (01) ==
LOC: ER 19:27
DX: E86.0 Dehydration (principal); R11.2 Nausea with vomiting, unspecified; I10 Essential (primary) hypertension; Z88.5 Allergy status to narcotic agent
CPT/HCPCS: 93005; 87040 ×2; 87070; 85025; 80048; 36415; 85610; 82565; 80076; 87081; 83605; 85730; 84484; 82728; 83690; 84145; 87804 ×2; 74177; 71045; 73502; 73030; 73610; Q9967; J2550; J7040 ×2; J2405; 51702; 81003; 81015; 96361; 96374; 96375; 99285

== ENCOUNTER 2020-05-22 19:34 | Emergency (ER) | payer OTHER ==
--- OUTSIDE RECORDS SUMMARY | 2020-05-22 19:37 | XMS REPORT | Clinical Summary ---
:1945 Author Organization [facility] Address [address] [place] [address] Care Team Providers Name Role Phone Asked, Pcp Primary Care Provider Unavailable Allergies Active Allergy Reactions Severity Noted Date Comments Morphine 08/02/2016 Medications Not on file Active Problems Not on file Encounters Date Type Specialty Care Team Description 12/14/2019 Travel 12/10/2019 Travel 11/12/2019 Travel 11/11/2019 Travel 11/09/2019 Travel after 05/22/2019 Surgical History Surgery Date Site/Laterality Comments TOE [...] Health Maintenance Due Date Last Done Comments COVID-19 VACCINE (1 of 2) 1961 BREAST CANCER SCREENING 12/31/1995 COLONOSCOPY SCREENING 12/31/1995 SHINGLES VACCINES (#1) 12/31/1995 65+ PNEUMOCOCCAL VACCINE (1 of 1 - PPSV23) 2010 INFLUENZA VACCINE 10/30/2019 Results Not on fileafter 05/22/2019 Insurance Payer Benefit Plan / Subscriber ID Effective Dates Phone Addre ss Type Group MEDICARE MEDICARE PART A [id number] 2003-Present AKI RODRIGUEZ MD Medicare AND B MEDICAID MEDICAID [id number] 2011-Present Med icaid Advance Directives For more information, please contact: [phone] Type Date Recorded 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
--- OUTSIDE RECORDS SUMMARY | 2020-05-22 19:37 | XMS REPORT | Clinical Summary ---
:1945 Author Organization [facility] Address [address] [place] [address] Care Team Providers Name Role Phone Pcp, No MD Primary Care Provider Unavailable Allergies Active Allergy Reactions Severity Noted Date Comments Morphine Anxiety Low 02/17/2019 Medications Medication Sig Dispensed Refills Start Date End Date Status metroNIDAZOLE (FLAGYL) Take 500 mg by 0 Active 500 MG tablet mouth every 8 (eight) hours. ondansetron (ZOFRAN) 4 Take by mouth 0 Active mg/5 mL solution once. acetaminophen (TYLENOL) Take 650 mg by 0 Active 325 MG tablet mouth every 6 (six) hours as needed for Pain. Active Problems Problem Noted Date Colovaginal fistula [...] PNEUMOCOCCAL 65+ YRS (1 of 1 - [id number] PCV13) 2010 DEPRESSION SCREENING (12+) 03/31/2019 INFLUENZA VACCINE (#1) 2019 Results Not on fileafter 05/22/2019 Insurance Payer Benefit Plan / Subscriber ID Effective Dates Phone Addre ss Type Group MEDICARE MEDICARE A B [id number] 2003-Becky Medicare t [place] MED[place] [id number] 2019-Rust t Advance Directives For more information, please contact: [phone] Code Status Date Activated Date Inactivated Comments Full Code 02/17/2019 10:31 PM 02/19/2019 1:18 PM This code status was determined by: Patient
--- OUTSIDE RECORDS SUMMARY | 2020-05-22 19:38 | XMS REPORT | Continuity of Care Document ---
:1945 Author Organization [facility] t Address [address] [place] [address] Care Team Providers Name Role Phone Asked, Pcp Primary Care Physician Unavailable Gagandeep VARGAS Attending Clinician Katie Henderson MD Attending Clinician Hay Caraballo MD Attending Clinician RAFAEL RODRIGUEZ Attending Clinician Unavailable DUNG ENRIQUEZ Admitting Clinician Unavailable Payers Payer Name Policy Type Policy Effective Date Expiration Date Sour ce Number MEDICAREMEDICARE PART [id number] 2003 Jorgito Wilson AND 00:00:00 [facility] [id number] 2002 [place] [id number] 2011 Guera flores [id number] 2011-PresentM 00:00:00 Met donal edicaid Problems Condition Condition Condition Status Onset Resolution [...] Date Quantity Comments Source Sex Assigned At [facility] History [facility] - Alcohol Std Drinks [facility] History [facility] - Alcohol Binge Medical [facility] ter Tobacco use and 2019-02-17 2019-02-[address] [facility] - exposure 00:00[facility]00 00[facility]00:00 Medical Center History SDOH 2019-02-17 2019-02-[address] [facility] - Alcohol Frequency 00:00:00 00:00:00 [facility] Alcohol intake 2016-08-02 2016-08-02 [facility] 00:00:00 non-drinker of alcohol (finding) Smoking Status Start Date Stop Date Source Never smoker [facility] Medications Ordered Filled Start Stop Current [...] tablet (six) hours as needed for Pain. Procedures This patient has no known procedures. Plan of Care Planned Activity Planned Date Details Comments Source Future Scheduled 2019-11-30 INFLUENZA VACCINE (#1) [facility] Test 00:00:00 [code = INFLUENZA Medical Ce nter VACCINE (#1)] Future Scheduled 2019-10-30 [facility] VACCINE [place] 00:00:00 [code = INFLUENZA VACCINE] Future Scheduled 2019-03-[address] [facility] - Test 00:00:00 (12+) [code = [facility] DEPRESSION SCREENING (12+)] Future Scheduled 2010 65+ PNEUMOCOCCAL [facility] Test 00:00:00 VACCINE (1 of 1 - PPSV23) [code = 65+ PNEUMOCOCCAL VACCINE (1 of 1 - PPSV23)] Future Scheduled 2010 PNEUMOCOCCAL 65+ YRS [facility] - Test 00:00:00 (1 of 1 - Medical Center [id number] PCV13) [code = PNEUMOCOCCAL 65+ YRS (1 of 1 - [id number] PCV13)] Future Scheduled 2004-03-[address] [facility] [facility] - Test 00:00:00 WELLNESS (YEAR 2 or Medical Center FIRST YEAR if no IPPE) [code = MEDICARE ANNUAL WELLNESS (YEAR 2 or FIRST YEAR if no IPPE)] Future Scheduled 1995-12-31 BREAST CANCER [facility] 00:00:00 SCREENING [code = BREAST CANCER SCREENING] Future Scheduled 1995-12-31 COLONOSCOPY SCREENING [place] [facility] [facility] 00:00:00 [code = COLONOSCOPY SCREENING] Future Scheduled 1995-12-31 SHINGLES VACCINES (#1) [facility] Test 00:00:00 [code = SHINGLES VACCINES (#1)] Future Scheduled 1961 COVID-19 VACCINE (1 of [facility] Test 00:00:00 2) [code = COVID-19 VACCINE (1 of 2)] Future Scheduled [address] [facility] Test 00:00:00 [facility] breast [facility]procedure) [code = 789082923] Future Scheduled [address] [facility] - Test 00:00:00 [facility] colon (procedure) [code = 729998954] Encounters Start End Encounter Admission Attending Care Care Encounter Source Date/Time Date/Time Type Type Clinicians Facility Department ID 2020-05-17 2020-05-17 Refill Gagandeep [facility] [id number] 00:00:00 00:00:00 Kevon Tineo [id number] [place] [id number] Professio [phone] [address] 2020-05-16 2020-05-16 Refill Henderson, [facility] [id number] 00:00:00 00:00:00 Darlene Tineo [id number] [place] [id number] Professio [phone] [address] 2020-05-16 2020-05-16 Refill Ilya [facility] [id number] 00:00:00 00:00:00 Erica Tineo [id number] [place] [id number] Professio [phone] [address] 2020-05-04 2020-05-04 Telephone Henderson, [facility] [id number] 00:00:00 00:00:00 Darlene Tineo [id number] [place] [id number] Professio [phone] [address] 2020-05-02 2020-05-02 [place] Beatriz [facility] [id number] 00:00:00 00:00:00 Darlene Tineo [id number] [place] [id number] Professio [phone] [address] 2020-04-27 2020-04-27 Telephone Beatriz [facility] [id number] 00:00:00 00:00:00 Darlene Tineo [id number] [place] [id number] Professio [phone] [address] Results Test Description Test Time Test Comments Results Result Comments Source POCT-GLUCOSE METER 2019-02-19 07:36:00 Test Item Value Reference Range Interpretation Comme nts POC-GLUCOSE METER (BEAKER) 81 mg/dL 70-110 : TESTED AT [facility] [address] (test code = 1538) DERICK HORAN [facility] [address]: Remotely Operated Vehicle/Techni yosvany ID = [id number] for Shahana Hewitt RAD, CHEST, 1 VIEW, NON [id number] 00:12:00Reason for exam:->to verify tip of picc [...] silhouette. Additional findings: None. Signed: Erica Campoverde [facility] Verified Date/Time: 02/19/2019 00:12:27 12:12 AMPOCT-GLUCOSE [id number] 23:41:00 Test Item Value Reference Range Interpretation Comments POC-GLUCOSE METER 96 mg/dL 70-110 : TESTED A T [facility] [address] (BEAKER) (test code = [address]) [place] [address] 478: Remotely Operated Vehicle/Techni yosvany ID = [id number] for Doreen Randhawa POCT-GLUCOSE [id number] 08:55:00 Test Item Value Reference Range Interpretation Comments POC-GLUCOSE METER 76 mg/dL 70-110 : TESTED A T [facility] [address] (BEAKER) (test code = [address], [address]) [place] [address] 478: Remotely Operated Vehicle/Techni yosvany ID = [id number] for Dyan Mukherjee BASIC METABOLIC [id number] 05:09:00 Test Item Value Reference Range Interpretation [...] NOT APPLICABLE FOR DIALYSIS PATIEN TS. LIPID [id number] 05:08:00 Test Item Value Reference Range Interpretation [...] 130-159 High 160-189 Very High >=190HEPATIC FUNCTION [id number] 05:08:00 Test Item Value Reference Range Interpretation [...] code = 5 U/L 5-50 347) HEMOGLOBIN [id number] 05:02:00 Test Item Value Reference Range Interpretation Comments HEMOGLOBIN A1C (BEAKER) (test code = 8.6 % 4.3-6.1 H 368) CBC W/PLT COUNT & AUTO [id number] 04:47:00 Test Item Value Reference Range Interpretation [...] PERCENT (BEAKER) (test code = 2801) POCT-GLUCOSE [id number] 22:56:00 Test Item Value Reference Range Interpretation Comments POC-GLUCOSE METER 95 mg/dL 70-110 : TESTED A T [facility] [address] (BEAKER) (test code = [address]) [facility] 77 478: Remotely Operated Vehicle/Techni yosvany ID = [id number] for Nehal Milner CT, [id number] 18:58:00Reason for exam:->VAGINAL DISCHARGEWhat is the patient's [...] Schultz MDReport Verified Date/Time: 18:58:34 Reading Location: [address] Consult Reading Room LIPASE 2019-02-17 18:20:00 Test Item Value Reference Range Interpretation Comments LIPASE (BEAKER) (test code = 749) 6 U/L 6-51 BASIC METABOLIC [id number] 18:20:00 Test Item Value Reference Range Interpretation [...] TO CALCULA TE ESTIMATED GFR. HEPATIC FUNCTION [id number] 18:19:00 Test Item Value Reference Range Interpretation [...] code = 5 U/L 5-50 347) PROTHROMBIN [id number] 18:11:00 Test Item Value Reference Range Interpretation [...] Information (Auto Output)CBC W/PLT COUNT & AUTO [id number] 18:01:00 Test Item Value Reference Range Interpretation [...] PERCENT (BEAKER) (test code = 2801) WET [id number] 17:57:00 Test Item Value Reference Range Interpretation [...]
[2020-05-22 20:12] LABS: Absolute Lymphocytes (CBC) 1.8 K/uL (0.7-4.9); Hematocrit 34.3 % (36.0-45.0); MPV 8.4 fL (7.6-11.3); RBC Red Blood Cell Count 4.21 M/uL (3.86-4.86)
[2020-05-22] MEDS ORDERED: NA CHLORIDE 0.9% 250 ML ONE ×2 (20:29→22:22)
[2020-05-22] MEDS ORDERED: ONDANSETRON 4 MG/2 ML VIAL ONE ×2 (20:29→22:22)
[2020-05-22] MEDS ORDERED: FENTANYL CITR 100 MCG/2 ML ONE (20:29)
[2020-05-22] MEDS ORDERED: FAMOTIDINE 20 MG/2 ML VIAL IV ONE (20:29)
[2020-05-22 20:40] LABS: ALT/SGPT 14 U/L (12-78); AST/SGOT 14 U/L (15-37); Alkaline Phosphatase 66 U/L (45-117); BUN Blood Urea Nitrogen 8 mg/dL (7-18); Bicarbonate 29 mmol/L (21-32); Bilirubin Direct 0.5 mg/dL (0-0.2); Bilirubin Total 1.5 mg/dL (0.2-1.0); Glucose Level 149 mg/dL (74-106); Lipase 50 U/L (73-393); Magnesium 1.7 mg/dL (1.8-2.4); Protein, Total 6.7 g/dL (6.4-8.2); Sodium Level 138 mmol/L (136-145)
[2020-05-22 20:41] LABS: Potassium 2.7 mmol/L (3.5-5.1)
[2020-05-22 21:10] LABS: SARS-COV-2 RT PCR NEGATIVE (NEGATIVE)
[2020-05-22] MEDS ORDERED: MAGNESIUM SULFATE 1 gm IVPB 1 GM/100 ML BAG IV ONE (21:43)
[2020-05-22] MEDS ORDERED: POTASSIUM 25 MEQ EFFERV TAB ONE (21:43)
[2020-05-22] MEDS ORDERED: KCL 20 MEQ/100 mL IVPB 20 MEQ/100 ML BAG IV ONE (21:44)
[2020-05-22] MEDS ORDERED: POTASSIUM CL SA 10 MEQ TAB PO ONE (22:22)
[2020-05-22] MEDS ORDERED: MECLIZINE HCL 12.5 MG TAB ONE (22:22)
--- NOTE | 2020-05-22 23:14 | EDPHYS ---
Physician Documentation [facility] Name: Leydi Guerrier Age: 74 yrs Sex: Female : 1945 Arrival Date: 05/22/2020 Time: 19:36 Bed 17 Private MD: ED Physician Duran Pires HPI: 05/22 19:50 This 74 yrs old Female presents to ER via EMS with complaints of Abdominal cp Pain, Nausea. 19:50 The patient presents with abdominal pain. Onset: The symptoms/episode began/occurred 2 cp day(s) ago. Associated signs and symptoms: Pertinent positives: nausea and vomiting, Pertinent negatives: constipation, diarrhea, fever, vomiting blood. Severity of pain: in the emergency department the pain is unchanged despite home interventions. Historical: - Allergies: 19:46 Morphine; sf - PMHx: 19:46 Hypertension; Diabetes - NIDDM; blind; sf - Immunization history:: Adult Immunizations unknown. - Social history:: Smoking status: Patient denies any tobacco usage or history of. Patient/guardian denies using alcohol, street drugs, IV drugs. ROS: 19:57 Constitutional: Positive for poor PO intake, Negative for body aches, chills, fever. cp 19:57 Eyes: Negative for injury, pain, redness, and discharge. cp 19:57 ENT: Negative for ear pain, sore throat, difficulty swallowing, difficulty handling secretions. 19:57 Cardiovascular: Negative for chest pain, edema, palpitations. 19:57 Respiratory: Negative for cough, shortness of breath, wheezing. 19:57 Abdomen/GI: Positive for abdominal pain, nausea and vomiting, anorexia, Negative for diarrhea, constipation, hematemesis, black/tarry stool, rectal bleeding. 19:57 Back: Negative for pain at rest, pain with movement. 19:57 Neuro: Negative for altered mental status, headache, syncope. 19:57 All other systems are negative. Exam: 20:00 Constitutional: The patient appears in no acute distress, alert, awake, cp non-diaphoretic, non-toxic, well developed, well nourished. 20:00 Head/Face: Normocephalic, atraumatic. cp 20:00 Eyes: Periorbital structures: appear normal, Conjunctiva: normal, no exudate, no injection, Sclera: no appreciated abnormality, Lids and lashes: appear normal, bilaterally. 20:00 ENT: External ear(s): are unremarkable, Nose: is normal, Mouth: Lips: moist, Oral mucosa: moist, Posterior pharynx: Airway: no evidence of obstruction, patent. 20:00 Chest/axilla: Inspection: normal, Palpation: is normal, no crepitus, no tenderness. 20:00 Cardiovascular: Rate: normal, Rhythm: regular, Edema: is not appreciated, JVD: is not appreciated. 20:00 Respiratory: the patient does not display signs of respiratory distress, Respirations: normal, no use of accessory muscles, no retractions, labored breathing, is not present, Breath sounds: are clear throughout, no decreased breath sounds. 20:00 Abdomen/GI: Inspection: abdomen appears normal, Bowel sounds: active, all quadrants, Palpation: soft, in all quadrants, severe abdominal tenderness, in the left lower quadrant, rebound tenderness, is not appreciated, voluntary guarding, is elicited in the left lower quadrant. Vital Signs: 19:42 BP 110 / 58; Pulse 81; Resp 18; Temp 98.4; Pulse Ox 100% ; Weight 68.04 kg; Height 5 sf ft. 3 in. (160.02 cm); Pain 10/10; 19:45 BP 128 / 75; Pulse 85; Resp 16; Pulse Ox 100% ; sf 20:14 BP 130 / 71; Pulse 84; Pulse Ox 100% ; sf 20:30 BP 129 / 69; Pulse 74; Pulse Ox 100% ; sf 21:28 BP 167 / 70; Pulse 79; Pulse Ox 100% ; sf 22:00 BP 137 / 92; Pulse 80; Resp 16; Pulse Ox 100% ; sf 22:30 BP 128 / 64; Pulse 76; Pulse Ox 100% ; sf 05/23 00:30 BP 148 / 71; Pulse 73; Resp 16; Pulse Ox 100% ; sf 05/22 19:42 Body Mass Index 26.57 (68.04 kg, 160.02 cm) MDM: 05/22 19:39 Patient medically screened. cp 20:00 Differential diagnosis: bowel obstruction, diverticulitis, gastritis, non-specific abd cp pain, pancreatitis, Pyelonephritis, Ureterolithiasis, urinary tract infection. 23:12 Data reviewed: vital signs. Counseling: I had a detailed discussion with the patient pm1 and/or guardian regarding: the historical points, exam findings, and any diagnostic results supporting the discharge/admit diagnosis, lab results, the need for outpatient follow up, to return to the emergency department if symptoms worsen or persist or if there are any questions or concerns that arise at home. 05/22 19:45 Order name: Basic Metabolic Panel; Complete Time: 20:56 cp 05/22 20:56 Interpretation: Normal except: K 2.7; GLUC 149. cp 05/22 19:45 Order name: CBC with Diff; Complete Time: 20:56 cp 05/22 20:56 Interpretation: Normal except: HGB 11.7; HCT 34.3; RDW 16.1. cp 05/22 19:45 Order name: Hepatic Function; Complete Time: 20:56 cp 05/22 20:59 Interpretation: Normal except: AST 14; BILIT 1.5; BILID 0.5; ALB 3.0; GLOB 3.7; A/G 0.8.cp 05/22 19:45 Order name: Lipase; Complete Time: 20:56 cp 05/22 19:47 Order name: Lactate; Complete Time: 20:56 cp 05/22 19:47 Order name: Procalcitonin; Complete Time: 20:56 cp 05/22 19:45 Order name: CT Abd/Pelvis - IV Contrast Only 05/22 20:11 Order name: Magnesium; Complete Time: 20:56 EDMS 05/22 21:18 Interpretation: Abnormal: MG 1.7. cp 05/22 21:11 Order name: COVID-19/FLU A+B; Complete Time: 21:18 EDMS 05/22 19:45 Order name: IV Saline Lock; Complete Time: 20:08 cp 05/22 19:45 Order name: Labs collected and sent; Complete Time: 20:08 cp Administered Medications: 20:14 Drug: Zofran (Ondansetron) 4 mg Route: IVP; Site: left antecubital; sf 20:54 Follow up: Response: No adverse reaction; Nausea is decreased sf 20:14 Drug: Pepcid 20 mg Route: IVP; Site: left antecubital; sf 20:54 Follow up: Response: No adverse reaction; Nausea is decreased sf 20:14 Drug: NS 0.9% 250 ml Route: IV; Rate: bolus; Site: left antecubital; sf 20:52 Follow up: IV Status: Completed infusion; IV Intake: 250ml sf 20:53 Follow up: Response: No adverse reaction; IV Status: Completed infusion; IV Intake: sf 250ml 20:14 Drug: fentaNYL (PF) 25 mcg Route: IVP; Site: left antecubital; sf 20:53 Follow up: Response: No adverse reaction; Pain is decreased sf 21:30 Drug: Potassium Chloride 20 mEq Route: IV; Rate: 50 ml/hr; Site: left antecubital; sf 23:36 Follow up: IV Status: Completed infusion; IV Intake: 100ml sf 05/23 00:49 Follow up: Response: No adverse reaction sf 05/22 21:30 Drug: Magnesium Sulfate 1 grams Route: IVPB; Infused Over: 1 hrs; Site: left sf antecubital; 22:30 Follow up: IV Status: Completed infusion; IV Intake: 100ml sf 21:37 Not Given (Patient Refused): Potassium Effervescent Tablet 50 mEq PO once; dissolve in sf 4 ounces of water or juice 22:00 Drug: Meclizine 25 mg Route: PO; sf 22:43 Follow up: Response: No adverse reaction sf 22:15 Drug: Zofran (Ondansetron) 4 mg Route: IVP; Site: left antecubital; sf 22:43 Follow up: Response: No adverse reaction; Nausea is decreased sf 22:15 Drug: NS 0.9% 250 ml Route: IV; Rate: bolus; Site: left antecubital; sf 22:30 Follow up: IV Status: Completed infusion; IV Intake: 250ml sf 22:15 Drug: Potassium Chloride 40 mEq Route: PO; sf 22:43 Follow up: Response: No adverse reaction Disposition: 05/23 06:34 Co-signature as Attending Physician, Duran Pires MD I agree with the assessment and 4 plan of care. Disposition: 05/22/20 23:13 Discharged to Home. Impression: Unspecified abdominal pain, Nausea, Hypokalemia. - Condition is Stable. - Discharge Instructions: Abdominal Pain, Adult, Potassium Content of Foods, Nausea, Adult, Hypokalemia. - Prescriptions for Bentyl 20 mg Oral Tablet - take 1 tablet by ORAL route every 6 hours As needed; 20 tablet. Zofran 4 mg Oral Tablet - take 1 tablet by ORAL route every 12 hours As needed; 20 tablet. - Medication Reconciliation Form, Thank You Letter, Antibiotic Education, Prescription Opioid Use, SBAR form form. - Follow up: Emergency Department; When: As needed; Reason: Worsening of condition. Follow up: Private Physician; When: 2 - 3 days; Reason: Recheck today's complaints, Continuance of care, Re-evaluation by your physician. - Problem is new. - Symptoms have improved. Signatures: Dispatcher [employer] EDIA Gopi Coppola PA PA cp Misha Fulton, RAILROAD TRACK MECHANIC RAILROAD TRACK MECHANIC pm1 Duran Pires MD MD tw4 Mando Hyatt RN RN sf Corrections: (The following items were deleted from the chart) 05/22 20:10 19:49 Influenza Screen (A \T\ B)+BA.LAB.BRZ ordered. [facility] 20:11 19:48 MAGNESIUM+C.LAB.BRZ ordered. [facility] EDIA 20:11 19:49 CORONAVIRUS+MR.LAB.BRZ ordered. [facility] 05/23 02:03 05/22 23:13 05/22/2020 23:13 Discharged to Home. Impression: Unspecified abdominal sf pain; Nausea; Hypokalemia. Condition is Stable. Forms are Medication Reconciliation Form, Thank You Letter, Antibiotic Education, Prescription Opioid Use. Follow up: Emergency Department; When: As needed; Reason: Worsening of condition. Follow up: Private Physician; When: 2 - 3 days; Reason: Recheck today's complaints, Continuance of care, Re-evaluation by your physician. Problem is new. Symptoms have improved. pm1
--- NOTE | 2020-05-22 23:14 | ER ---
Nurse's Notes [facility] Name: Leydi Guerrier Age: 74 yrs Sex: Female : 1945 Arrival Date: 05/22/2020 Time: 19:36 Bed 17 Private MD: Diagnosis: Unspecified abdominal pain;Nausea;Hypokalemia Presentation: 05/22 19:42 Chief complaint: EMS states: From home, reports abdominal pain with nausea and vomiting sf for 2 days. [place] cath placed 2 weeks ago. Coronavirus screen: Client denies travel out of the [place] in the last 14 days. At this time, the client does not indicate any symptoms associated with coronavirus-19. The client reports previous COVID testing was negative. Ebola Screen: Patient negative for fever greater than or equal to 101.5 degrees Fahrenheit, and additional compatible Ebola Virus Disease symptoms Patient denies exposure to infectious person. Patient denies travel to an Ebola-affected area in the 21 days before illness onset. No symptoms or risks identified at this time. Initial Sepsis Screen: Does the patient meet any 2 criteria? No. Patient's initial sepsis screen is negative. Does the patient have a suspected source of infection? Yes: Catheter related infection ([place]/dialysis/PICC/central line). Risk Assessment: Do you want to hurt yourself or someone else? Patient reports no desire to harm self or others. Onset of symptoms was May 20, 2020. 19:42 Method Of Arrival: EMS: [facility] sf 19:42 Acuity: ADY 3 sf Historical: - Allergies: 19:46 Morphine; sf - PMHx: 19:46 Hypertension; Diabetes - NIDDM; blind; sf - Immunization history:: Adult Immunizations unknown. - Social history:: Smoking status: Patient denies any tobacco usage or history of. Patient/guardian denies using alcohol, street drugs, IV drugs. Screenin:40 Abuse screen: Denies threats or abuse. Denies injuries from another. Nutritional sf screening: No deficits noted. On no prescribed diet. Tuberculosis screening: No symptoms or risk factors identified. Never had TB. Possible symptoms: None Risk factors: None. Fall Risk No fall in past 12 months (0 pts). Secondary diagnosis (15 points) impaired mobility, IV access (20 points). Ambulatory Aid- Crutches/Cane/Walker (15 pts). Gait- Impaired (20 pts.). Mental Status- Oriented to own ability (0 pts). Total Esparza Fall Scale indicates High Risk Score (45 or more points). Fall prevention measures have been instituted. Side Rails Up X 2 Placed Close to Nursing Station Frequent Obs/Assessments Occuring. Assessment: 19:40 General: Appears uncomfortable, Behavior is fussy. Pain: Complains of pain in abdomen sf Pain currently is 10 out of 10 on a pain scale. Neuro: No deficits noted. Level of Consciousness is awake, alert, Oriented to person, place, time, situation. Cardiovascular: No deficits noted. Patient's skin is warm and dry. Respiratory: No deficits noted. Airway is patent Respiratory effort is even, unlabored, Respiratory pattern is regular, symmetrical. GI: Abdomen is non-distended, Bowel sounds present X 4 quads. Abd is soft X 4 quads Abdomen is tender to palpation X 4 quads. : [place] in place to gravity drainage. 21:30 Reassessment: Patient took one sip of PO potassium and refused the rest. 22:47 Reassessment: Patient appears in no apparent distress at this time. Patient and/or sf family updated on plan of care and expected duration. Pain level reassessed. Patient is alert, oriented x 3, equal unlabored respirations, skin warm/dry/pink. 23:41 Reassessment: Patient appears in no apparent distress at this time. Patient and/or sf family updated on plan of care and expected duration. Pain level reassessed. Patient is alert, oriented x 3, equal unlabored respirations, skin warm/dry/pink. Called patient's son to transport patient back to home after discharge. Son will attempt to arrange transport and will call ED back. 23:44 Reassessment: Son called back, states "she is going to have to stay there until the sf morning." Explained she is being discharged and can not stay in the ED. He reports there is no way to get her tonight. Will arrange transport for the patient, he is agreeable to that. 05/23 00:49 Reassessment: Patient appears in no apparent distress at this time. Patient and/or sf family updated on plan of care and expected duration. Pain level reassessed. Patient is alert, oriented x 3, equal unlabored respirations, skin warm/dry/pink. Waiting transport back to the house. Vital Signs: 05/22 19:42 BP 110 / 58; Pulse 81; Resp 18; Temp 98.4; Pulse Ox 100% ; Weight 68.04 kg; Height 5 sf ft. 3 in. (160.02 cm); Pain 10/10; 19:45 BP 128 / 75; Pulse 85; Resp 16; Pulse Ox 100% ; sf 20:14 BP 130 / 71; Pulse 84; Pulse Ox 100% ; sf 20:30 BP 129 / 69; Pulse 74; Pulse Ox 100% ; sf 21:28 BP 167 / 70; Pulse 79; Pulse Ox 100% ; sf 22:00 BP 137 / 92; Pulse 80; Resp 16; Pulse Ox 100% ; sf 22:30 BP 128 / 64; Pulse 76; Pulse Ox 100% ; sf 05/23 00:30 BP 148 / 71; Pulse 73; Resp 16; Pulse Ox 100% ; sf 05/22 19:42 Body Mass Index 26.57 (68.04 kg, 160.02 cm) ED Course: 05/22 19:36 Patient arrived in ED. cl3 19:37 Gopi Coppola PA is PHCP. cp 19:37 Duran Pires MD is Attending Physician. cp 19:40 Patient has correct armband on for positive identification. Bed in low position. Call sf light in reach. Side rails up X2. Pulse ox on. NIBP on. Door closed. Noise minimized. Visitors limited. Warm blanket given. Verbal reassurance given. 19:42 Mando Hyatt, AIDEN is Primary Nurse. sf 19:42 Arm band placed on right wrist. sf 19:45 Triage completed. sf 19:50 Initial lab(s) drawn, by me, sent to lab. Missed attempt(s): 20 gauge in right sf antecubital area. 20:00 Inserted saline lock: 20 gauge in left antecubital area, using aseptic technique. sf 20:52 CT Abd/Pelvis - IV Contrast Only Sent. sf 21:04 CT Abd/Pelvis - IV Contrast Only In Process Unspecified. EDMS 05/23 00:00 Contacted Elli Guerrier (son) he is at work in [place] and will try to contact ar5 cousin to come pick her up. 00:44 Called to get an update on someone coming to get pt. states will call back. ar5 01:00 Son called back and said no one can pick her up. Called [facility] for wheelchair ar5 van, EMS will be here to 30-45 minutes to transport pt. 02:01 No provider procedures requiring assistance completed. IV discontinued, intact, sf bleeding controlled, No redness/swelling at site. Pressure dressing applied. Administered Medications: 05/22 20:14 Drug: Zofran (Ondansetron) 4 mg Route: IVP; Site: left antecubital; sf 20:54 Follow up: Response: No adverse reaction; Nausea is decreased sf 20:14 Drug: Pepcid 20 mg Route: IVP; Site: left antecubital; sf 20:54 Follow up: Response: No adverse reaction; Nausea is decreased sf 20:14 Drug: NS 0.9% 250 ml Route: IV; Rate: bolus; Site: left antecubital; sf 20:52 Follow up: IV Status: Completed infusion; IV Intake: 250ml sf 20:53 Follow up: Response: No adverse reaction; IV Status: Completed infusion; IV Intake: sf 250ml 20:14 Drug: fentaNYL (PF) 25 mcg Route: IVP; Site: left antecubital; sf 20:53 Follow up: Response: No adverse reaction; Pain is decreased sf 21:30 Drug: Potassium Chloride 20 mEq Route: IV; Rate: 50 ml/hr; Site: left antecubital; sf 23:36 Follow up: IV Status: Completed infusion; IV Intake: 100ml sf 05/23 00:49 Follow up: Response: No adverse reaction sf 05/22 21:30 Drug: Magnesium Sulfate 1 grams Route: IVPB; Infused Over: 1 hrs; Site: left sf antecubital; 22:30 Follow up: IV Status: Completed infusion; IV Intake: 100ml sf 21:37 Not Given (Patient Refused): Potassium Effervescent Tablet 50 mEq PO once; dissolve in sf 4 ounces of water or juice 22:00 Drug: Meclizine 25 mg Route: PO; sf 22:43 Follow up: Response: No adverse reaction sf 22:15 Drug: Zofran (Ondansetron) 4 mg Route: IVP; Site: left antecubital; sf 22:43 Follow up: Response: No adverse reaction; Nausea is decreased sf 22:15 Drug: NS 0.9% 250 ml Route: IV; Rate: bolus; Site: left antecubital; sf 22:30 Follow up: IV Status: Completed infusion; IV Intake: 250ml sf 22:15 Drug: Potassium Chloride 40 mEq Route: PO; sf 22:43 Follow up: Response: No adverse reaction sf Intake: 20:52 IV: 250ml; Total: 250ml. sf 20:53 IV: 250ml; Total: 500ml. sf 22:30 IV: 250ml; Total: 750ml. sf 22:30 IV: 100ml; Total: 850ml. sf 23:36 IV: 100ml; Total: 950ml. sf Outcome: 23:13 Discharge ordered by . pm1 05/23 02:01 Discharged to home via wheelchair, with [facility] sf Condition: stable Discharge instructions given to patient, Instructed on discharge instructions, follow up and referral plans. medication usage, Demonstrated understanding of instructions, follow-up care, medications, Prescriptions given X 2. 02:03 Patient left the ED. sf Signatures: Dispatcher [employer] EDMS Gopi Coppola PA PA cp Marinas, Patrick, HOSPICE LIAISON HOSPICE LIAISON pm1 Rosa M Marcano ar5 Vinay Chew cl3 Mando Hyatt RN RN sf Corrections: (The following items were deleted from the chart) 01:56 01:55 Called to get an update on someone coming to get pt. ar5 ar5 01:58 01:00 Son called back and said no one can pick her up. Called [facility] for ar5 wheelchair van ar5
[2020-05-23 04:18] VITALS: TEMP 98.4; O2SAT 100
[2020-05-23 04:27] VITALS: BP 148/71
--- NOTE | 2020-05-23 13:02 | RAD REPORT ---
EXAM DESCRIPTION: CT - Abdomen Pelvis W Contrast - 05/23/2020 6:37 am CLINICAL HISTORY: Abdominal pain. Nausea and vomiting for 2 days. COMPARISON: 03/13/2020 TECHNIQUE: CT scan of the abdomen and pelvis was performed with IV contrast. This exam was performed according to our departmental dose-optimization program, which includes automated exposure control, adjustment of the mA and/or kV according to patient size and/or use of iterative reconstruction techn ique. FINDINGS: Mild atelectasis at lung bases without pleural or pericardial effusions. No hiatal hernia is seen. There has been a prior cholecystectomy and hysterectomy. The liver, spleen, pancreas, adrenal glands, and kidneys are unremarkable. No hydronephrosis or urinary stones are seen. The stomach and duodenum are unremarkable. The small bowel is normal without evidence of inflammation or obstruction. There has been a prior appendectomy. There is no evidence of acute diverticulitis. N o intraperitoneal adenopathy, free fluid, or free air is identified. The aorta is normal caliber and contains atherosclerotic calcifications. No abnormal body wall hernia is seen. Mild degenerative changes in the lumbar spine. IMPRESSION: No acute abdominal or pelvic findings. Electronically signed by: Sabas Cheatham MD 05/22/2020 9:44 PM NURSE PR[employer]Y Due to temporary technical issues with the PACS/Fluency reporting system, reports are being signed by the in house radiologists without review as a courtesy to insure prompt reporting. The interpreting radiologist is fully responsible for the content of the report.
== END 2020-05-23 02:03 | disposition home or self-care (01) ==
LOC: ER 19:34
DX: E87.6 Hypokalemia (principal); R11.2 Nausea with vomiting, unspecified; I10 Essential (primary) hypertension; E11.9 Type 2 diabetes mellitus without complications; Z20.828 Contact with and (suspected) exposure to other viral communicable diseases; Z88.5 Allergy status to narcotic agent
CPT/HCPCS: 85025; 80048; 36415; 83735; 80076; 83605; 83690; 84145; 0240U; 74177; Q9967; J3480; J3010; J3475; J7050 ×2; J2405 ×2; 96365; 96366; 96367; 96368; 96375; 99284

== ENCOUNTER 2020-06-05 17:32 | Emergency (ER) | payer OTHER ==
--- OUTSIDE RECORDS SUMMARY | 2020-06-05 17:35 | XMS REPORT | Continuity of Care Document ---
:1945 Author Organization [facility] t Address [address] [place] [address] Care Team Providers Name Role Phone Pcp Primary Care Physician Unavailable Gabriele BOO Attending Clinician Katie Henderson MD Attending Clinician Gagandeep VARGAS Attending Clinician Michoacano Blanco DO Attending Clinician Sage FINCH, L Attending Clinician Doctor Unassigned, Name Attending Clinician Unavailable Hay Caraballo MD Attending Clinician RAFAEL RODRIGUEZ Attending Clinician Unavailable DUNG ENRIQUEZ Admitting Clinician Unavailable Payers Payer Name Policy Type Policy Effective Date Expiration Date Sour ce Number MEDICAREMEDICARE PART [id number] 2003 Jorgito Wilson AND 00:00:00 Zoroastrianism [id number] 2002 [place] MEDICAIDMEDICAIDxxxxx [id number] 2011 [place] 1521 2011-PresentM 00:00:00 Met donal edicaid Problems Condition [...] Date Quantity Comments Source Sex Assigned At [facility] History [facility] - Alcohol Std Drinks Medica l Center History [facility] - Alcohol Binge Medical Marco Antonio ter Tobacco use and 2019-02-17 2019-02-17 Never used [facility] kes - exposure 00:00:00 00:00:00 Medical [place] Alcohol intake 2019-02-17 2019-02-17 [facility]00[facility]00 non-drinker of Medical nter alcohol (finding) History [facility] 2019-02-17 2019-02-[address] [facility] - Alcohol Frequency 00:00:00 00:00:00 Medical Center Smoking Status Start Date Stop Date Source Never smoker [facility] Medications Ordered Filled Start Stop Current [...] Future Scheduled 2019-10-30 INFLUENZA VACCINE [place] [facility] 00:00:00 [code = INFLUENZA VACCINE] Future Scheduled 2019-03-[address] [facility] - Test 00:00:00 (12+) [code = [facility] DEPRESSION SCREENING (12+)] Future Scheduled 2010 PNEUMOCOCCAL 65+ YRS [facility] - Test 00:00:00 (1 of 1 - Medical Center [id number] PCV13) [code = PNEUMOCOCCAL 65+ YRS (1 of 1 - [id number] PCV13)] Future Scheduled 2010 65+ PNEUMOCOCCAL [place] [facility] Test 00:00:00 VACCINE (1 of 1 - PPSV23) [code = 65+ PNEUMOCOCCAL VACCINE (1 of 1 - PPSV23)] Future Scheduled 2004-03-[address] [facility] - Test 00:00:00 WELLNESS (YEAR 2 or Medical Center FIRST YEAR if no IPPE) [code = MEDICARE ANNUAL WELLNESS (YEAR 2 or FIRST YEAR if no IPPE)] Future Scheduled 1995-12-31 BREAST CANCER [facility]ist Test 00:00:00 SCREENING [code = BREAST CANCER SCREENING] Future Scheduled 1995-12-31 COLONOSCOPY SCREENING [place] [facility] 00:00:00 [code = COLONOSCOPY SCREENING] Future Scheduled 1995-12-31 SHINGLES VACCINES (#1) [place] [facility] Test 00:00:00 [code = SHINGLES VACCINES (#1)] Future Scheduled 1961 COVID-19 VACCINE (1 of [place] [facility] Test 00:00:00 2) [code = COVID-19 VACCINE (1 of 2)] Future Scheduled [address] [facility] - Test 00:00:00 malignant neoplasm of [facility] breast (procedure) [code = 929531405] Future Scheduled [address] [facility] - Test 00:00:00 malignant neoplasm of [facility] colon (procedure) [code = 309563244] Encounters Start End Encounter Admission Attending Care Care Encounter Source Date/Time Date/Time Type Type Clinicians Facility Department ID 2020-06-05 2020[facility].2.840[facility]114 [id number] 13:57:55 14:27:55 ne Visit Galilea Tineo [id number] [facility] 4.2.7.2.686 Professio [phone] [address] 2020-06-05 2020-06-05 Telephone Beatriz [facility] 1.2.840.114 [id number] 00:00:00 00:00:00 Darlene Tineo [id number] [place] 4.2.7.2.686 Professio [id number] [address] 2020-06-02 2020-06-02 [facility] 1.[facility].840.114 [id number] 00:00:00 00:00:00 Kevon Tineo [id number] [place] 4.2.7.2.686 Professio [phone] [address] 2020-06-02 2020-06-02 [facility] 1.2.840.114 [id number] 00:00:00 00:00:00 Kevon Tineo [id number] [place] 4.2.7.2.686 Professio [phone] 2020-05-29 2020-05-29 Patient Francis [facility] [id number] 00:00:00 00:00:00 Outreach Mark BHATT [id number] Located within [facility] 4.2.7.2.686 PAVILLION [id number] [facility] 2020-05-23 2020-05-23 Patient Sage [facility] [id number] 00:00:00 00:00:00 Outreach Stephanie Tineo [id number] [place] 4.2.7.2.686 Professio [phone] [address] 2020-05-23 2020-05-23 Telephone [facility] 1.2.840.114 [id number] 00:00:00 00:00:00 Darlene Tineo [id number] [place] 4.2.7.2.686 Professio [phone] [address] 2020-05-23 2020-05-23 Orders Doctor LUIS ARMANDO 1.2.840.114 [id number] 00:00:00 00:00:00 Only Unassigned, ROSI 350.1.13.10 [place] [facility] 4.2.7.2.686 [id number] 009 2020-05-17 2020-05-17 [facility] 1.2.840.114 [id number] 00:00:00 00:00:00 Kevon Tineo 350.1.13.10 [place] 4.2.7.2.686 Professio [phone] [address] 2020-05-16 2020-05-16 Refill [facility] 1.2.840.114 [id number] 00:00:00 00:00:00 Darlene Tineo 350.1.13.10 [place] 4.2.7.2.686 Professio [phone] [address] 2020-05-16 2020-05-16 [facility] 1.2.840.114 [id number] 00:00:00 00:00:00 Erica Tineo 350.1.13.10 Hay [facility] 4.2.7.2.[address] Professio [id number] [address] 2020-05-04 2020-05-04 [facility] 1.2.840.114 [id number] 00:00:00 00:00:00 Darlene Tineo 350.1.13.10 [place] 4.2.7.2.686 Professio [phone] [place] [address] [facility] 2020-05-02 2020-05-02 Telephone Beatriz [facility] 1.2.840.114 [id number] 00:00:00 00:00:00 Darlene Tineo 350.1.13.10 [place] 4.2.7.2.686 Tobi [phone] carl 044 [facility] 2020-04-27 2020-04-27 Telephone Henderson, [facility] 1.2.840.114 [id number] 00:00:00 00:00:00 Darlene Tineo 350.1.13.10 [place] 4.2.7.2.[phone] Results Test Description Test Time Test Comments Results Result Comments Source POCT-GLUCOSE METER 2019-02-19 07:36:00 Test Item Value Reference Range Interpretation Comme nts POC-GLUCOSE METER ([employer]AKER) 81 mg/dL 70-110 : TESTED AT [facility] [address] [facility] (test code = 1538) [facility] [address]: Engineering Assistant/Techni yosvany ID = [id number] for Shahana Hewitt RAD, CHEST, 1 VIEW, NON [id number] 00:12:00Reason for exam:->to verify tip of picc [...] Campoverde Verified Date/Time: 02/19/2019 00:12:27 12:12 AMPOCT-GLUCOSE [id number] 23:41:00 Test Item Value Reference Range Interpretation Comments POC-GLUCOSE METER 96 mg/dL 70-110 : TESTED A T [facility] 1317 (BEAKER) (test code = [address], 15[address]) [facility] [address]: Engineering Assistant/Techni yosvany ID = [id number] for Doreen Randhawa POCT-GLUCOSE [id number] 08:55:00 Test Item Value Reference Range Interpretation Comments POC-GLUCOSE METER 76 mg/dL 70-110 : TESTED A T [facility] 1317 (BEAKER) (test code = [address], 1538) [facility] 77 478: Engineering Assistant/Techni yosvany ID = [id number] for Dyan Mukherjee BASIC METABOLIC [id number] 05:09:00 Test Item Value Reference Range Interpretation [...] NOT APPLICABLE FOR DIALYSIS PATIEN TS. LIPID [id number] 05:08:00 Test Item Value Reference Range Interpretation [...] 130-159 High 160-189 Very High >=190HEPATIC FUNCTION [id number] 05:08:00 Test Item Value Reference Range Interpretation [...] code = 5 U/L 5-50 347) HEMOGLOBIN [id number] 05:02:00 Test Item Value Reference Range Interpretation Comments HEMOGLOBIN A1C (BEAKER) (test code = 8.6 % 4.3-6.1 H 368) CBC W/PLT COUNT & AUTO [id number] 04:47:00 Test Item Value Reference Range Interpretation [...] PERCENT (BEAKER) (test code = 2801) POCT-GLUCOSE [id number] 22:56:00 Test Item Value Reference Range Interpretation Comments POC-GLUCOSE METER 95 mg/dL 70-110 : TESTED A T [facility] [address] (BEAKER) (test code = [address], 1538) [facility] 77 478: Engineering Assistant/Techni yosvany ID = [id number] for Nehal Milner CT, [id number] 18:58:00Reason for exam:->VAGINAL DISCHARGEWhat is the patient's [...] Schultz MDReport Verified Date/Time: 18:58:34 Reading Location: [address] Consult Reading Room LIPASE 2019-02-17 18:20:00 Test Item Value Reference Range Interpretation Comments LIPASE (BEAKER) (test code = 749) 6 U/L 6-51 BASIC METABOLIC [id number] 18:20:00 Test Item Value Reference Range Interpretation [...] TO CALCULA TE ESTIMATED GFR. HEPATIC FUNCTION [id number] 18:19:00 Test Item Value Reference Range Interpretation [...] code = 5 U/L 5-50 347) PROTHROMBIN [id number] 18:11:00 Test Item Value Reference Range Interpretation [...] Information (Auto Output)CBC W/PLT COUNT & AUTO [id number] 18:01:00 Test Item Value Reference Range Interpretation [...] PERCENT (BEAKER) (test code = 2801) WET [id number] 17:57:00 Test Item Value Reference Range Interpretation [...]
[2020-06-05] MEDS ORDERED: NA CHLORIDE 0.9% 2,000 ML ONE (18:13)
--- NOTE | 2020-06-05 18:14 | RAD REPORT ---
EXAM DESCRIPTION: RAD - Chest Single View - 06/05/2020 6:06 pm CLINICAL HISTORY: COUGH Chest pain. COMPARISON: Chest Pa And Lat (2 Views) dated 05/29/2020; Chest Single View dated 03/13/2020; Chest Sin gle View dated 01/06/2020; Chest Single View dated 01/02/2020 FINDINGS: Portable technique limits examination quality. The lungs are emphysematous but grossly clear. The heart is normal in size. No displaced fractures. IMPRESSION: Mild COPD.
[2020-06-05 18:42] LABS: Absolute Lymphocytes (CBC) 0.8 K/uL (0.7-4.9); Basophils % 0.2 % (0-1.3); Hematocrit 31.1 % (36.0-45.0); Lymphocytes % 8.4 % (15.3-44.8); MPV 8.8 fL (7.6-11.3); RBC Red Blood Cell Count 3.75 M/uL (3.86-4.86)
[2020-06-05 18:57] LABS: Protime INR 1.06
--- NOTE | 2020-06-05 18:57 | RAD REPORT ---
EXAM DESCRIPTION: CT - Head C Spine Cap Wo Con - 06/05/2020 6:40 pm CLINICAL HISTORY: Trauma, head and neck injury. Chest, abdomen and pelvis pain. ams;Pain;Weakness COMPARISON: Head C Spine Cap W Con dated 02/22/2019; Abdomen Pelvis W Contrast dated 05/29/2020 TECHNIQUE: CT head without contrast. CT cervical spine without contrast with coronal and sagittal reformatted images. CT chest, abdomen and pelvis without contrast with coronal and sagittal reformatted images of the spi ne. All CT scans are performed using dose optimization technique as appropriate and may include automated exposure control or mA/KV adjustment according to patient size. FINDINGS: CT HEAD WITHOUT CONTRAST: No intracranial hemorrhage, hydrocephalus or extra-axial fluid collection. Moderate generalized brain atrophy is present with mild periventricular and deep white matter chronic microvascular ischemic ch anges. No areas of brain edema or midline shift. The paranasal sinuses and mastoids are clear. The calvarium is intact. CT CERVICAL SPINE WITHOUT CONTRAST: No fracture or subluxation. The prevertebral soft tissues are normal in thickness. CT CHEST, ABDOMEN, PELVIS WITHOUT CONTRAST: NOTE: Lack of contrast is a significant limitation in the assessment of trauma related findings. Spec ifically, solid organ, vascular and bowel evaluation is significantly limited. The lungs are mildly emphysematous but clear.No pneumothorax or pericardial/pleural fluid. No evidence of intra-abdominal visceral injury, free fluid or free air is seen within the above detai led limitations. Heavy atherosclerosis. No concerning pelvic findings. No fractures. IMPRESSION: No acute abnormality is detected.
[2020-06-05 19:12] LABS: ALT/SGPT 26 U/L (12-78); AST/SGOT 12 U/L (15-37); Albumin 2.5 g/dL (3.4-5.0); Alkaline Phosphatase 47 U/L (45-117); BUN Blood Urea Nitrogen 35 mg/dL (7-18); Bicarbonate 27 mmol/L (21-32); Bilirubin Direct 0.5 mg/dL (0-0.2); Bilirubin Total 1.2 mg/dL (0.2-1.0); Glucose Level 320 mg/dL (74-106); Lipase 45 U/L (73-393); NT PRO-BNP 525 pg/mL (<125); Protein, Total 6.2 g/dL (6.4-8.2); Sodium Level 141 mmol/L (136-145); Troponin (Emerg Dept Use Only) < 0.02 ng/mL (0.0-0.045)
[2020-06-05] MEDS ORDERED: PIPER/TAZO/NS 3.375gm 3.375 GM/100 ML BAG ONE (19:46)
[2020-06-05] MEDS ORDERED: FAMOTIDINE 20 MG/2 ML VIAL IV ONE (19:47)
--- NOTE | 2020-06-05 19:58 | EDPHYS ---
Physician Documentation [facility] Name: Leydi Guerrier Age: 74 yrs Sex: Female : 1945 Arrival Date: 06/05/2020 Time: 17:34 Bed 13 Private MD: ED Physician Gopi Pittman HPI: 06/05 17:50 This 74 yrs old Female presents to ER via EMS with complaints of Pain All Over.yonis 17:50 The patient or guardian reports chest pain that is located primarily in the substernal yonis area, epigastric area, anterior chest wall. Onset: 2 day(s) ago. 17:54 The patient presents with abdominal pain. Onset: The symptoms/episode began/occurred 2 yonis day(s) ago. pain all over, dry mm, has indwelling ritter. The patient presents with confusion, decreased mental status, decreased responsiveness, trouble concentrating. Onset: The symptoms/episode began/occurred 2 day(s) ago. Possible causes: CVA or TIA, low blood sugar, sepsis. Historical: - Allergies: 17:41 Morphine; ss - PMHx: 17:41 BLIND; Diabetes - NIDDM; Hypertension; ss - Immunization history:: Adult Immunizations unknown. - Social history:: Smoking status: unknown. - Family history:: not pertinent. ROS: 17:54 Eyes: Negative for injury, pain, redness, and discharge, Cardiovascular: Negative for yonis chest pain, palpitations, and edema, Respiratory: Negative for shortness of breath, cough, wheezing, and pleuritic chest pain, : Negative for injury, bleeding, discharge, and swelling. 17:54 Constitutional: Positive for body aches, chills, fatigue, malaise, poor PO intake, weight loss. 17:54 Cardiovascular: Positive for chest pain, of the chest. 17:54 Respiratory: Positive for dyspnea on exertion. 17:54 Abdomen/GI: Positive for abdominal pain. 17:54 : Positive for injury or acute deformity, vaginal discharge, vaginal itching. 17:54 MS/extremity: Negative for acute changes, decreased range of motion, ecchymosis, erythema, pain, swelling, tenderness. 17:54 Skin: Positive for pallor. 17:54 Neuro: Positive for altered mental status, dizziness, weakness. 17:54 Psych: Positive for depression. Exam: 17:54 Head/Face: Normocephalic, atraumatic. Eyes: Pupils equal round and reactive to light, yonis extra-ocular motions intact. Lids and lashes normal. Conjunctiva and sclera are non-icteric and not injected. Cornea within normal limits. Periorbital areas with no swelling, redness, or edema. Neck: Trachea midline, no thyromegaly or masses palpated, and no cervical lymphadenopathy. Supple, full range of motion without nuchal rigidity, or vertebral point tenderness. No Meningismus. Chest/axilla: Normal chest wall appearance and motion. Nontender with no deformity. No lesions are appreciated. Cardiovascular: Regular rate and rhythm with a normal S1 and S2. No gallops, murmurs, or rubs. Normal PMI, no JVD. No pulse deficits. Respiratory: Lungs have equal breath sounds bilaterally, clear to auscultation and percussion. No rales, rhonchi or wheezes noted. No increased work of breathing, no retractions or nasal flaring. Back: No spinal tenderness. No costovertebral tenderness. Full range of motion. MS/ Extremity: Pulses equal, no cyanosis. Neurovascular intact. Full, normal range of motion. 17:54 Constitutional: The patient appears lethargic, in obvious distress, moderately distressed. 17:54 Respiratory: the patient does not display signs of respiratory distress, Respirations: normal, Breath sounds: rhonchi, that are mild, Respiratory rate: 20 Vital Signs: 17:35 BP 105 / 82; Pulse 85; Resp 18; Temp 97.8(TE); Pulse Ox 92% on R/A; ss 17:52 Weight 56.7 kg; hb 19:30 BP 116 / 58; Pulse 80; Resp 13; Pulse Ox 98% on R/A; jb4 20:30 BP 142 / 72; Pulse 88; Resp 15; Pulse Ox 100% on R/A; jb4 21:30 BP 133 / 96; Pulse 75; Resp 18; Pulse Ox 100% on R/A; jb4 22:30 BP 154 / 67; Pulse 73; Resp 13; Pulse Ox 100% on R/A; jb4 23:30 BP 154 / 70; Pulse 76; Resp 18; Pulse Ox 100% on R/A; jb4 MDM: 17:35 Patient medically screened. [facility] 17:59 Differential diagnosis: abnormal EKG, anxiety, cholecystitis, Cholelithiasis gastritis, yonis pancreatitis, peptic ulcer disease, pneumonia, thoracic aortic disection, acute coronary syndrome, bowel obstruction, coronary artery disease, cholecystitis, Cholelithiasis, diverticulitis, Mesenteric ischemia or infarction, non-specific abd pain, pancreatitis, Peptic Ulcer Disease, Pyelonephritis, Ureterolithiasis, urinary tract infection. Differential Diagnosis altered mental status, sepsis. HEART Score: History: Slightly Suspicious (0), ECG: Non specific repolarization disturbance / LBTB / PM (1), Age: > or = 65 years (2), Risk Factors: > or = 3 Risk factors for atherosclerotic disease (2), [Hypertension] [DM] [+ Family HX] [Obesity] Troponin: < or = 1 x Normal Limit (0). Differential Diagnosis: CVA, electrolyte abnormality, hypoglycemia, pneumonia, seizure, sepsis, TIA, UTI, volume depletion. The patient was not given aspirin in the Emergency Department. Not indicated due to patient's past medical history. The patient's deep vein thrombosis risk score was calculated as follows: Total Score: 0. This patient was found to be at low risk for a deep vein thrombosis by using the Well's assessment criteria. The patient's pulmonary embolism risk score was calculated as follows: Total Score: 0-2 points. This patient was found to be at low risk for a pulmonary embolism by using the Well's assessment criteria. JOHNNIE Risk Score: 1 - patient's age is greater or equal to 65 years, 1 - Three or more CAD risk factors, 1- Known CAD. Data reviewed: vital signs, nurses notes, diagnostic data from outside facility, old medical records, lab test result(s), EKG, radiologic studies. Data interpreted: equipment monitor phototypesetting: rate is 85 beats/min, rhythm is regular. 06/05 17:48 Order name: Basic Metabolic Panel [facility] 06/05 17:48 Order name: CBC with Diff 06/05 17:48 Order name: LFT's 06/05 17:48 Order name: Magnesium [facility] 06/05 17:48 Order name: NT PRO-BNP 06/05 17:48 Order name: PT-INR 06/05 17:48 Order name: Troponin (emerg Dept Use Only); Complete Time: 19:41 yonis 06/05 17:48 Order name: Lipase; Complete Time: 19:41 [facility] 06/05 17:48 Order name: Blood Culture Adult (2) [facility] 06/05 17:48 Order name: Lactate; Complete Time: 19:41 [facility] 06/05 17:48 Order name: Procalcitonin; Complete Time: 19:45 [facility] 06/05 17:48 Order name: Type And Screen; Complete Time: 21:01 [facility] 06/05 17:48 Order name: XRAY Chest (1 view); Complete Time: 19:04 [facility] 06/05 17:48 Order name: CT Traumagram (Head C Spine CAP wo con); Complete Time: 19:04 [facility] 06/05 17:48 Order name: Basic Metabolic Panel; Complete Time: 19:41 [facility] 06/05 17:48 Order name: CBC with Automated Diff; Complete Time: 21:01 [facility] 06/05 17:49 Order name: Liver (Hepatic) Function; Complete Time: 19:41 [facility] 06/05 17:49 Order name: Magnesium; Complete Time: 19:41 [facility] 06/05 17:49 Order name: NT PRO-BNP; Complete Time: 19:41 [facility] 06/05 17:49 Order name: Protime (+INR); Complete Time: 19:05 [facility] 06/05 19:28 Order name: SARS-COV-2 RT PCR; Complete Time: 19:41 [facility] 06/05 20:00 Order name: CBC Smear Scan; Complete Time: 21:01 [facility] 06/05 21:24 Order name: Glucose, Ancillary Testing [facility] 06/05 21:24 Order name: Glucose, Ancillary Testing; Complete Time: 22:38 [facility] 06/05 22:14 Order name: Urine Dipstick--Ancillary (enter results) [facility] 06/05 22:24 Order name: Lactate Sepsis 2 HR Follow-up; Complete Time: 22:38 [facility] 06/05 17:48 Order name: Cardiac monitoring; Complete Time: 19:43 [facility] 06/05 17:48 Order name: EKG - Nurse/Tech; Complete Time: 19:43 [facility] 06/05 17:48 Order name: IV Saline Lock; Complete Time: 19:43 [facility] 06/05 17:48 Order name: Labs collected and sent; Complete Time: 19:43 [facility] 06/05 17:48 Order name: O2 Per Protocol; Complete Time: 19:43 [facility] 06/05 17:48 Order name: O2 Sat Monitoring; Complete Time: 19:43 [facility] 06/05 17:48 Order name: Urine Dipstick-Ancillary (obtain specimen); Complete Time: 21:59 [facility] 06/05 17:48 Order name: Ritter; Complete Time: 19:43 [facility] 06/05 18:12 Order name: IV - Large Bore; Complete Time: 19:43 [facility] Administered Medications: 19:00 Drug: NS 0.9% (30 ml/kg) 30 ml/kg Route: IV; Rate: bolus; Site: right antecubital; [facility] 21:30 Follow up: Response: No adverse reaction; IV Status: Completed infusion; IV Intake: jb4 2000ml 19:43 Drug: Pepcid 20 mg Route: IVP; Site: right antecubital; [facility] 20:15 Follow up: Response: No adverse reaction [facility] 19:43 Drug: Zosyn 3.375 grams Route: IVPB; Infused Over: 60 mins; Site: right antecubital; [facility] 20:43 Follow up: Response: No adverse reaction; IV Status: Completed infusion; IV Intake: jb4 100ml 20:18 Drug: Insulin Regular Human 5 units {Co-Signature: ll2 (Laura Coronado RN).} Route: jb4 IVP; Site: right antecubital; 21:15 Follow up: Response: No adverse reaction; Blood sugar is lowered [facility] 20:18 Not Given (medication unavailable, provider notified.): Levemir 100 unit/mL 30 units [facility] Sub-Q once 21:10 Drug: NS 0.9% with KCl 20 mEq/L 1000 ml Route: IV; Rate: 125 ml/hr; Site: right [facility] antecubital; 23:30 Follow up: Response: No adverse reaction; IV Status: Infusion continued upon transfer jb 23:00 Drug: NS 0.9% 1000 ml Route: IV; Rate: 1 bolus; Site: right antecubital; [facility] 23:30 Follow up: Response: No adverse reaction; IV Status: Infusion continued upon transfer [facility] 23:01 Drug: Thiamine 100 mg Route: IV; Rate: bolus; Site: right antecubital; 4 23:15 Follow up: Response: No adverse reaction; IV Status: Completed infusion; IV Intake: 30kiiv8 23:10 Drug: vancoMYCIN 1 grams Route: IVPB; Infused Over: 2 hrs; Site: right antecubital; jb4 23:30 Follow up: Response: No adverse reaction; IV Status: Infusion continued upon transfer jb4 Disposition: 06/05/20 19:57 Transfer ordered to [facility]. Diagnosis are Acute kidney failure, Altered mental status, unspecified, Type 2 diabetes mellitus, Noninflammatory disorder of vulva and perineum, unspecified - mass/HSV, Hypokalemia, Sepsis, unspecified organism, Dehydration. - Reason for transfer: Higher level of care. - Accepting physician is [facility]. - Condition is Fair. - Problem is new. - Symptoms have improved. Signatures: Dispatcher [employer] EDHI Gopi Pittman MD MD cha Smirch, Shelby, RN RN Josse Marie RN RN jb4 Laura Coronado RN ll2 Corrections: (The following items were deleted from the chart) 18:44 17:49 CORONAVIRUS+MR.LAB.BRZ ordered. [facility] 22:39 19:57 06/05/2020 19:57 Transfer ordered to [facility]. Diagnosis is Acute kidney yonis failure; Altered mental status, unspecified; Type 2 diabetes mellitus; Noninflammatory disorder of vulva and perineum, unspecified - mass/HSV; Hypokalemia; Sepsis, unspecified organism. Reason for transfer: Higher level of care. Accepting physician is [facility]. Condition is Fair. Problem is new. Symptoms have improved. [facility] 06/06 00:06 06/05 22:39 06/05/2020 19:57 Transfer ordered to [facility]. Diagnosis is Acute kidney jb4 failure; Altered mental status, unspecified; Type 2 diabetes mellitus; Noninflammatory disorder of vulva and perineum, unspecified - mass/HSV; Hypokalemia; Sepsis, unspecified organism; Dehydration. Reason for transfer: Higher level of care. Accepting physician is [facility]. Condition is Fair. Problem is new. Symptoms have improved. yonis
--- NOTE | 2020-06-05 19:58 | ER ---
Nurse's Notes [facility] Name: Leydi Guerrier Age: 74 yrs Sex: Female : 1945 Arrival Date: 06/05/2020 Time: 17:34 Bed 13 Private MD: Diagnosis: Acute kidney failure;Altered mental status, unspecified;Type 2 diabetes mellitus;Noninflammatory disorder of vulva and perineum, unspecified-mass/HSV;Hypokalemia;Sepsis, unspecified organism;Dehydration Presentation: 06/05 17:35 Chief complaint: EMS states: chest pain and abd pain that began 3 days ago. PCP ss instructed family to have patient come to ED for admission to hospital. Pt c/o pain all over. Coronavirus screen: Client denies travel out of the [place] in the last 14 days. Ebola Screen: Patient denies exposure to infectious person. Patient denies travel to an Ebola-affected area in the 21 days before illness onset. Initial Sepsis Screen: Does the patient meet any 2 criteria? No. Patient's initial sepsis screen is negative. Does the patient have a suspected source of infection? No. Patient's initial sepsis screen is negative. Risk Assessment: Do you want to hurt yourself or someone else? Patient reports no desire to harm self or others. Onset of symptoms was June 01, 2020. 17:35 Method Of Arrival: EMS: [facility] 17:35 Acuity: ADY 2 hb Historical: - Allergies: 17:41 Morphine; ss - PMHx: 17:41 BLIND; Diabetes - NIDDM; Hypertension; ss - Immunization history:: Adult Immunizations unknown. - Social history:: Smoking status: unknown. - Family history:: not pertinent. Screenin:46 Abuse screen: Denies threats or abuse. Denies injuries from another. Nutritional hb screening: No deficits noted. Tuberculosis screening: No symptoms or risk factors identified. Fall Risk Total Esparza Fall Scale indicates Low Risk Score (25-44 pts). Fall prevention measures have been instituted. Side Rails Up X 2 As available Patient and Family Educated on Fall Prevention Program and strategies. Assessment: 18:33 General: Appears distressed, Behavior is drowsy, fussy, restless. Pain: Unable to use hb pain scale. FLACC scale score is 6 out of 10. Neuro: Level of Consciousness is confused, lethargic, Oriented to person. Cardiovascular: Capillary refill < 3 seconds Patient's skin is warm and dry. Respiratory: Respiratory effort is even, unlabored, Respiratory pattern is regular, symmetrical. GI: No signs and/or symptoms were reported involving the gastrointestinal system. : No signs and/or symptoms were reported regarding the genitourinary system. catheter from home, brown cloudy urine and dirty ritter tubing noted. EENT: No signs and/or symptoms were reported regarding the EENT system. Derm: Skin is dry, Skin is pale, Skin temperature is warm. Musculoskeletal: Reports pain alll over. 19:10 Reassessment: PT remain alert and oriented x0. she wakes easily to verbal stimuli. jb4 Respirations are even and unlabored. No s/s of pain or distress noted. Vaginal bleeding noted after cleansing peroneum for ritter insertion. 20:00 Reassessment: Patient appears in no apparent distress at this time. No changes from jb4 previously documented assessment. Patient and/or family updated on plan of care and expected duration. Pain level reassessed. 21:15 Reassessment: Pt continues to be disoriented, continues to waken easily to verbal jb4 stimuli. Respirations remain even and unlabored. vaginal bleeding has stopped. Pt has had approximately 100ml of urine output. Provider notified, instructed to give full 2L bolus. 22:19 Reassessment: PT continues to be disoriented. Wakens with ease to verbal stimuli. jb4 Respirations are even and unlabored. No s/s of pain or distress noted. PT has now had a total urine output of approximately 300ml. 22:38 Reassessment: Provider notified of Critical lab value, Lactate of 4.4. jb4 23:30 Reassessment: Patient appears in no apparent distress at this time. Patient and/or jb4 family updated on plan of care and expected duration. Pain level reassessed. PT continues to be altered. Respirations remain even and unlabored. Vital Signs: 17:35 BP 105 / 82; Pulse 85; Resp 18; Temp 97.8(TE); Pulse Ox 92% on R/A; ss 17:52 Weight 56.7 kg; hb 19:30 BP 116 / 58; Pulse 80; Resp 13; Pulse Ox 98% on R/A; jb4 20:30 BP 142 / 72; Pulse 88; Resp 15; Pulse Ox 100% on R/A; jb4 21:30 BP 133 / 96; Pulse 75; Resp 18; Pulse Ox 100% on R/A; jb4 22:30 BP 154 / 67; Pulse 73; Resp 13; Pulse Ox 100% on R/A; jb4 23:30 BP 154 / 70; Pulse 76; Resp 18; Pulse Ox 100% on R/A; jb4 ED Course: 17:34 Patient arrived in ED. ss 17:35 Gopi Pittman MD is Attending Physician. yonis 17:38 Triage completed. ss 17:41 Arm band placed on right wrist. ss 17:52 Beata Cabral, AIDEN is Primary Nurse. hb 18:10 XRAY Chest (1 view) In Process Unspecified. EDMS 18:40 CT Traumagram (Head C Spine CAP wo con) In Process Unspecified. EDMS 18:40 Inserted saline lock: 22 gauge in right antecubital area, using aseptic technique. hb ,using aseptic technique. by Brian Blood collected. 18:46 Patient has correct armband on for positive identification. Bed in low position. Side hb rails up X 1. Side rails up X2. 19:05 Ritter cath removed intact, balloon deflated. jb4 19:10 Ritter cath inserted, using sterile technique, 16 Fr., by ED staff, balloon inflated, to jb4 gravity drainage, Patient tolerated well. 19:50 initiated a transfer with Jo Ann Colby from [facility] transfer Center. mw2 20:52 contacted Jo Ann Colby from [facility] to let her know I faxed over patient facesheet. She mw2 informed me we are waiting for the bed to cleaned then she can give a room assignment. 21:57 administrative approval given by Marilee Hickey/ patient has been accepted to [facility] mw2 [facility] 9 D bed 969/ Dr. Bean has accepted the patient in transfer/ report to be called to [phone]. 23:30 No provider procedures requiring assistance completed. Patient transferred, IV remains jb4 in place. Administered Medications: 19:00 Drug: NS 0.9% (30 ml/kg) 30 ml/kg Route: IV; Rate: bolus; Site: right antecubital; jb4 21:30 Follow up: Response: No adverse reaction; IV Status: Completed infusion; IV Intake: jb4 2000ml 19:43 Drug: Pepcid 20 mg Route: IVP; Site: right antecubital; jb4 20:15 Follow up: Response: No adverse reaction jb4 19:43 Drug: Zosyn 3.375 grams Route: IVPB; Infused Over: 60 mins; Site: right antecubital; jb4 20:43 Follow up: Response: No adverse reaction; IV Status: Completed infusion; IV Intake: jb4 100ml 20:18 Drug: Insulin Regular Human 5 units {Co-Signature: ll2 (Laura Coronado RN).} Route: jb4 IVP; Site: right antecubital; 21:15 Follow up: Response: No adverse reaction; Blood sugar is lowered jb4 20:18 Not Given (medication unavailable, provider notified.): Levemir 100 unit/mL 30 units jb4 Sub-Q once 21:10 Drug: NS 0.9% with KCl 20 mEq/L 1000 ml Route: IV; Rate: 125 ml/hr; Site: right jb antecubital; 23:30 Follow up: Response: No adverse reaction; IV Status: Infusion continued upon transfer jb4 23:00 Drug: NS 0.9% 1000 ml Route: IV; Rate: 1 bolus; Site: right antecubital; 4 23:30 Follow up: Response: No adverse reaction; IV Status: Infusion continued upon transfer jb4 23:01 Drug: Thiamine 100 mg Route: IV; Rate: bolus; Site: right antecubital; jb4 23:15 Follow up: Response: No adverse reaction; IV Status: Completed infusion; IV Intake: [id number] 23:10 Drug: vancoMYCIN 1 grams Route: IVPB; Infused Over: 2 hrs; Site: right antecubital; jb4 23:30 Follow up: Response: No adverse reaction; IV Status: Infusion continued upon transfer jb4 Intake: 20:43 IV: 100ml; Total: 100ml. jb4 21:30 IV: 2000ml; Total: 2100ml. jb4 23:15 IV: 10ml; Total: 2110ml. jb4 Outcome: 19:57 ER care complete, transfer ordered by MD. somers 23:30 Transferred by [facility]. to [facility], Transfer jb4 form completed. X-rays sent w/ patient. 23:30 Condition: stable 06/06 00:06 Patient left the ED. jb4 Addendum: 06/09/2020 19:08 Addendum: Culture Results: Positive blood culture. Phone call Attempt #1 Spoke with s jeffery Nurse at [facility]. Culture report faxed to [phone] ATTN: Brenda. Signatures: Dispatcher [employer] EDRI Gopi Pittman MD MD cha Smirch, Shelby, RN RN ss Beata Cabral RN RN Josse Cabrera RN RN jb4 Josh Boateng 2 Laura Coronado RN ll2 Corrections: (The following items were deleted from the chart) 06/05 18:33 17:35 Acuity: ADY 3 ss hb
[2020-06-05 19:59] LABS: Anisocytosis 1+; Blood Morphology Comment NOTED (NOT SEEN); Platelet Estimate DECR; Poikilocytosis 1+; White Blood Cell Scan OK (OK)
[2020-06-05] MEDS ORDERED: NS KCL 20MEQ 1,000 ML IV ONE (20:29)
[2020-06-05] MEDS ORDERED: INSULIN -REGULAR HUMAN 50 UNIT/0.5 ML ML ONE (20:30)
[2020-06-05] MEDS ORDERED: VANCOMYCIN 1 GM/VIAL ONE (23:09)
[2020-06-05] MEDS ORDERED: THIAMINE 200 MG/2 ML INJ ONE (23:09)
[2020-06-05] MEDS ORDERED: NA CHLORIDE 0.9% 250 ML ONE (23:09)
[2020-06-05] MEDS ORDERED: NA CHLORIDE 0.9% 1,000 ML ONE (23:09)
[2020-06-06 00:35] VITALS: TEMP 97.8
[2020-06-06 00:37] VITALS: O2SAT 100
[2020-06-06 00:41] VITALS: BP 154/70
== END 2020-06-06 00:06 | disposition short-term general hospital (02) ==
LOC: ER 17:32
DX: A41.9 Sepsis, unspecified organism (principal); N17.9 Acute kidney failure, unspecified; E87.6 Hypokalemia; E86.0 Dehydration; E11.9 Type 2 diabetes mellitus without complications; N90.89 Other specified noninflammatory disorders of vulva and perineum; Z20.822 Contact with and (suspected) exposure to COVID-19
CPT/HCPCS: 87040 ×2; 85025; 80048; 36415; 86900; 83735; 86850; 87205; 85610; 86901; 82947; 80076; 83605 ×2; 84484; 83690; 84145; 83880; 70450; 71250; 72125; 71045; U0003; J3411; J3370; J2543; J7050; J7030 ×2; J3480; 51702; 87077; 87186; 96361; 96365; 96367; 96375; 99285